=== PATIENT | female | born 1955 | race Caucasian/White ===

== ENCOUNTER 2018-09-06 00:58 | Outpatient (CLI) | payer BC, SELFPAY ==
--- NOTE | 2018-09-06 10:30 | MERGE_ITS ---
*[facility]* *[facility]* [address] [place] [address] Date of study: 09/06/2018 Transthoracic Echocardiography M-mode, complete 2D, complete spectral Doppler, and color Doppler *STUDY CONCLUSIONS* Summary: 1. Left ventricle: The cavity size was severely dilated. Wall thickness was normal. Systolic function was mildly to moderately reduced. The estimated ejection fraction was 40-45%. Diffuse hypokinesis. 2. Aortic valve: There was trivial regurgitation. 3. Mitral valve: Mildly thickened leaflets. There was mild to moderate regurgitation. 4. Right ventricle: The cavity size was normal. Wall thickness was normal. Systolic function was normal. 5. Inferior vena cava: The vessel was patent and normal in size. The respirophasic diameter changes were in the normal range (greater than or equal to 50%). *PATIENT PRESENTATION* Height: 172.7cm ((68in) ) S/D Pressure: 155 / 77 Weight: 86.2kg ((189.6lb) ) BSA: 2.05m^2 Test start time: 10:40 AM. Test stop time: 11:40 AM. CONSULTING Naveed Mckinney Preeth REFERRING Natasha Lopez PERFORMING [facility] SHOP WELDER RT Sy (Cristina)(KRISTINA), CIARA *PROCEDURE DATA* Procedure information: The patient was identified by two identifiers. This study was interpreted by [facility]. Pertinent images and digital data are archived for permanent storage and are available for subsequent review. Comparison was made to the study of 04/20/2017. Study status: Routine. Transthoracic echocardiography. M-mode, complete 2D, complete spectral Doppler, and color Doppler. A Transthoracic Echocardiogram was performed. Scanning was performed from the parasternal, apical, subcostal, and suprasternal notch acoustic windows. Images were obtained using an [id number] cardiac ultrasound machine. Image quality was adequate. Study completion: The patient tolerated the procedure well. There were no complications. 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 *CARDIAC ANATOMY* Left ventricle: The cavity size was severely dilated. Wall thickness was normal. Systolic function was mildly to moderately reduced. The estimated ejection fraction was 40-45%. Diffuse hypokinesis. Aortic valve: Trileaflet; mildly thickened leaflets. Mobility was not restricted. Doppler: Transvalvular velocity was within the normal range. There was no stenosis. There was trivial regurgitation. VTI ratio of LVOT to aortic valve: 0.79. Valve area (VTI): 2.6cm^2. Indexed valve area (VTI): 1.3cm^2/m^2. Peak velocity ratio of LVOT to aortic valve: 0.8. Valve area (Vmax): 2.6cm^2. Indexed valve area (Vmax): 1.3cm^2/m^2. Mean velocity ratio of LVOT to aortic valve: 0.72. Valve area (Vmean): 2.3cm^2. Indexed valve area (Vmean): 1.1cm^2/m^2. Mean gradient (S): 4.8mm Hg. Peak gradient (S): 9.2mm Hg. Aorta: Aortic root: The aortic root was normal in size. Ascending aorta: The ascending aorta was normal in size. Mitral valve: Mildly thickened leaflets. Mobility was not restricted. Doppler: Transvalvular velocity was within the normal range. There was no evidence for stenosis. There was mild to moderate regurgitation. Valve area by pressure half-time: 3cm^2. Indexed valve area by pressure half-time: 1.5cm^2/m^2. Left atrium: The atrium was normal in size. Right ventricle: The cavity size was normal. Wall thickness was normal. Systolic function was normal. Pulmonic valve: Structurally normal valve. Doppler: Transvalvular velocity was within the normal range. There was no evidence for stenosis. There was trivial regurgitation. Peak gradient (S): 3.5mm Hg. Tricuspid valve: Structurally normal valve. Doppler: Transvalvular velocity was within the normal range. There was no evidence for stenosis. There was no significant regurgitation. Pulmonary artery: The main pulmonary artery was normal-sized. Systolic pressure could not be accurately estimated. Right atrium: The atrium was normal in size. Pericardium: There was no pericardial effusion. Systemic veins: Inferior vena cava: Well visualized. The vessel was patent and normal in size. The respirophasic diameter changes were in the normal range (greater than or equal to 50%). Baseline ECG: Normal sinus rhythm. Measurements Left ventricle Value 04/20/2017 Reference LV ID, ED, PLAX (H) 6.1 cm 3.5 - 6.0 LV ID, ES, PLAX (H) 5.1 cm 2.1 - 4.0 LV PW thickness, ED, PLAX 0.9 cm LV end-diastolic volume, 113 ml 1-p A2C LV ejection fraction, 1-p 40 % A2C LV end-diastolic volume, 137 ml 1-p A4C LV ejection fraction, 1-p 40 % A4C LV e', lateral 0.042 m/sec LV E/e', lateral 12 LV e', medial 0.042 m/sec LV E/e', medial 13 LV e', average 0.042 m/sec LV E/e', average 12 Ventricular septum Value 04/20/2017 Reference IVS thickness, ED, PLAX 0.8 cm LVOT Value 04/20/2017 Reference LVOT ID, A-P 2.0 cm LVOT area 3.3 cm^2 LVOT peak velocity, S 1.21 m/sec LVOT mean velocity, S 0.74 m/sec LVOT VTI, S 23.8 cm LVOT peak gradient, S 5.9 mm Hg LVOT mean gradient, S 2.8 mm Hg Stroke volume (SV), LVOT 77 ml DP Stroke index (SV/bsa), 38 ml/m^2 LVOT DP Aortic valve Value 04/20/2017 Reference Aortic valve peak 1.5 m/sec velocity, S Aortic valve mean 1.03 m/sec velocity, S Aortic valve VTI, S 30.0 cm Aortic mean gradient, S 4.8 mm Hg Aortic peak gradient, S 9.2 mm Hg VTI ratio, LVOT/AV 0.79 Aortic valve area, VTI 2.6 cm^2 0.2 Velocity ratio, peak, 0.8 LVOT/AV Aortic valve area, peak 2.6 cm^2 velocity Velocity ratio, mean, 0.72 LVOT/AV Aortic valve area, mean 2.3 cm^2 velocity Aortic valve area/bsa, 1.1 cm^2/m^2 mean velocity Aorta Value 04/20/2017 Reference Aortic root ID, ED 3.4 cm Ascending aorta ID, A-P, S 3.1 cm Left atrium Value 04/20/2017 Reference LA ID, A-P, ES 4.6 cm LA ID/bsa, A-P 2.2 cm/m^2 <=2.2 LA area, ES, A4C 22.8 cm^2 30 8.8 - 23.4 LA area, ES, A2C 22 cm^2 LA volume/bsa, ES, 1-p A4C 41 ml/m^2 LA volume, ES, 2-p 73 ml LA volume/bsa, ES, 2-p 36 ml/m^2 LA/aortic root ratio 1.37 Mitral valve Value 04/20/2017 Reference Mitral E-wave peak 0.52 m/sec velocity Mitral A-wave peak 1.05 m/sec velocity Mitral deceleration time (H) 252 ms 150 - 230 Mitral pressure half-time 73 ms Mitral E/A ratio, peak 0.5 Mitral valve area, PHT, DP 3 cm^2 Tricuspid valve Value 04/20/2017 Reference Tricuspid regurg peak 2.2 m/sec velocity Tricuspid peak RV-RA 19.6 mm Hg gradient Right atrium Value 04/20/2017 Reference RA area, ES, A4C 16 cm^2 18 8.3 - 19.5 Pulmonic valve Value 04/20/2017 Reference Pulmonic peak gradient, S 3.5 mm Hg Legend: (L) and (H) donell values outside specified reference range. I have personally reviewed the images and have reviewed and edited the reported findings. Electronically signed by Steve Bustillo 09/06/2018 15:19
== END 2018-09-06 01:18 ==
PROVIDERS: PCP General Practice; Visit Provider Internal Medicine Cardiovascular Disease
DX: I34.0 Nonrheumatic mitral (valve) insufficiency (principal); I35.1 Nonrheumatic aortic (valve) insufficiency
CPT/HCPCS: 93306

== ENCOUNTER 2018-12-20 10:16 | Outpatient (CLI) | payer BC, SELFPAY ==
--- NOTE | 2018-12-20 10:16 | DI.RAD_ITS ---
SYMPTOM/DIAGNOSIS: COUGH,R05 PA AND LATERAL CHEST: The heart is not enlarged. The lungs show mild interstitial changes. There is an apparent new nodular radiodensity projected in the left infrahilar region measuring about 20 mm. in diameter on the PA view. This was not present on examination of 02/09/17. The possibility of a new intrapulmonary mass is raised. No pleural effusion is seen. No other significant findings. CONCLUSION: Question new left intrapulmonary mass. Chest CT requested for further evaluation.
== END 2018-12-20 10:36 ==
PROVIDERS: PCP General Practice; Visit Provider General Practice
DX: R05 Cough (principal); R91.1 Solitary pulmonary nodule
CPT/HCPCS: 71046

== ENCOUNTER 2018-12-20 10:22 | Outpatient (CLI) | payer BC, SELFPAY ==
[2018-12-20 12:05] LABS: Anion Gap 8.9 mmol/L (3-11); BUN 75 mg/dL (7-18); CO2 28.1 mmol/L (21.0-32.0); Chloride 102 mmol/L (98-107); Estimated GFR 8.65 (mL/min/1.73m2); Potassium 4.8 mmol/L (3.5-5.1); Sodium 139 mmol/L (136-145)
[2018-12-20 14:27] LABS: CREATININE 5.03 mg/dL (0.55-1.02)
== END 2018-12-20 10:42 ==
PROVIDERS: PCP General Practice; Visit Provider General Practice
DX: I42.9 Cardiomyopathy, unspecified (principal); I50.9 Heart failure, unspecified
CPT/HCPCS: 36415; 80051; 84520; 82565; 83880

== ENCOUNTER 2018-12-21 11:37 | Outpatient (CLI) | payer BC, SELFPAY ==
[2018-12-21 12:00] LABS: Bilirubin Negative (Negative); Blood Moderate (Negative); Clarity Cloudy; Glucose Negative (Negative); Ketones Negative (Negative); Leukocyte Esterase Moderate (Negative); Nitrite Negative (Negative); Specific Gravity 1.015 (1.005-1.025); Urobilinogen 0.2 EU/dL (Up TO 0.2)
[2018-12-21 12:09] LABS: Estimated GFR 8.82 (mL/min/1.73m2); Potassium 4.2 mmol/L (3.5-5.1)
[2018-12-21 12:13] LABS: Bacteria Moderate HPF (Negative); Crystals Moderate Amorphous HPF (Negative); Epithelial Cells Moderate HPF (Negative); Other Cells Few Transitional (Negative)
[2018-12-21 12:14] LABS: C & S Indicated? Yes; Casts 3-5 Fine Granular LPF (Negative); Mucus Moderate (Negative)
[2018-12-21 13:34] LABS: CREATININE 4.95 mg/dL (0.55-1.02)
== END 2018-12-21 11:57 ==
PROVIDERS: PCP General Practice; Visit Provider General Practice
DX: E83.52 Hypercalcemia (principal); N39.0 Urinary tract infection, site not specified
CPT/HCPCS: 87077; 81003; 81015; 82565; 84132; 87086

== ENCOUNTER 2018-12-23 02:14 | Outpatient (CLI) | payer BC, SELFPAY ==
[2018-12-23 08:07] LABS: Estimated GFR 7.77 (mL/min/1.73m2); Potassium 4.6 mmol/L (3.5-5.1)
[2018-12-23 10:02] LABS: CREATININE 5.52 mg/dL (0.55-1.02)
== END 2018-12-23 02:34 ==
PROVIDERS: PCP General Practice; Visit Provider General Practice
DX: N17.9 Acute kidney failure, unspecified (principal)
CPT/HCPCS: 36415; 82565; 84132

== ENCOUNTER 2018-12-24 07:11 | Outpatient (CLI) | payer BC, SELFPAY ==
[2018-12-24 07:40] LABS: HCT 33.3 % (36.0-46.0); HGB 10.6 g/dL (12.0-15.5); Mean Corp. HGB Concentration 31.8 g/dL (32.0-36.0); Mean Corpuscular Hemoglobin 28.9 pg (27.0-33.0); Mean Corpuscular Volume 90.7 fL (80-95); Mean Platelet Volume 10.7 fL (8.0-11.0); Platelet Count 205 x1000/uL (130-400); RBC 3.67 m/cumm (4.00-5.20); RBC Distribution Width 13.2 % (11.7-14.6); White Blood Cell Count 7.27 k/cumm (4.4-10.8)
[2018-12-24 08:40] LABS: ALT 22 U/L (12-78); AST 18 U/L (15-37); Albumin 3.4 g/dL (3.4-5.0); Alkaline Phosphatase 88 U/L (46-116); Anion Gap 12.2 mmol/L (3-11); BUN 66 mg/dL (7-18); Bilirubin, Total 0.6 mg/dL (0.2-1.0); CO2 25.8 mmol/L (21.0-32.0); Chloride 102 mmol/L (98-107); Estimated GFR 7.54 (mL/min/1.73m2); Glucose 145 mg/dL (70-100); Potassium 4.5 mmol/L (3.5-5.1); Sodium 140 mmol/L (136-145); Total Protein 7.4 g/dL (6.4-8.2)
[2018-12-24 08:51] LABS: CREATININE 5.67 mg/dL (0.55-1.02)
== END 2018-12-24 07:31 ==
PROVIDERS: PCP General Practice; Visit Provider General Practice
DX: N17.9 Acute kidney failure, unspecified (principal)
CPT/HCPCS: 36415; 80053; 85027

== ENCOUNTER 2018-12-24 10:09 | Inpatient (IN) | payer BC, SELFPAY ==
[2018-12-24] VITALS (9 sets, daily range): BP systolic 143–152; BP diastolic 64–75; PULSE 70–76; RESP 14–19; TEMP 36.7–37.2; O2SAT 96–98
--- NOTE | 2018-12-24 10:20 | W.ED.GENAD ---
Discharge Plan Disposition Patient Disposition: [facility] INPATIENT Condition: Improving Discharge Details Chief Complaint: GenMedical Clinical Impression: Hypercalcemia Primary Care Provider: Naveed Mckinney ED Provider: Korey Mcneil Home Meds and New Rx's Prescriptions: No Action spironolactone 25 mg tablet 25 mg PO DAILY Qty: 90 RF: 3 Multi Complete with Iron 1 EACH tablet 1 tab-cap PO DAILY RF: 0 ascorbic acid (vitamin C) [Vitamin C] 500 MG tablet 500 mg PO DAILY RF: 0 vitamin E 400 UNIT capsule 400 unit PO DAILY Qty: 1 RF: 0 garlic 1 EACH capsule 1 ea PO DAILY RF: 0 omega-3 fatty acids-fish oil [Fish Oil] 1 EACH capsule 1 ea PO DAILY RF: 0 furosemide [Lasix] 20 MG tablet 20 mg PO DAILY RF: 0 lisinopril 40 MG tablet 40 mg PO DAILY Qty: 60 RF: 3 Metoprolol Succinate 50 MG TAB.ER.24H 100 mg PO DAILY Qty: 90 RF: 4 cyanocobalamin (vitamin B-12) [Vitamin B-12] 100 mcg Tablet 100 mcg PO DAILY RF: 0 thiamine HCl (vitamin B1) [Vitamin B-1] 100 mg Tablet 100 mg PO DAILY RF: 0 Medical Decision Making 63-year-old female referred by Dr. Mckinney. She has had approximately 3 months of generalized fatigue with nonproductive cough, 20 pound weight loss. She was noted to have acute renal insufficiency on recent laboratories and her DARIELA inhibitor and spironolactone were discontinued 4 days ago. A chest x-ray obtained on December 20 reveal a pulmonary nodule. Concerning that she may have a developing carcinoma. Patient arrives with no acute distress. Pt placed in a monitored bed. IV access established, fluids initiated, referred for x-ray, laboratories, CT scan of chest abdomen and pelvis. Laboratory: White count 6.8, hematocrit 33.8, platelets 218. Sodium 139, potassium 4.4, chloride 102, bicarb 25, BUN 66, creatinine 5.6, glucose 113, calcium 13.8. Ionized calcium pending. Magnesium 2.3. Total protein 8.1 Urine output established and fluids ongoing. Given the calcium level of 13.8, consistent with moderate hypercalcemia, will add bisphosphonate. CT: Notable for a left adnexal lesion as well as bony lytic lesions. There is a 1.8 cm left lingular mass. Case discussed with on-call [facility]Onc at [facility] Dr. Lyn. She recommends admission with hydration and bisphosphonate for calcium control. Given the patient's left adnexal lesion will pursue a pelvic ultrasound; bony lytic lesion certainly risk question of myeloma and therefore SPEP, UPEP, serum free light chains and beta-[address] Lyn available for consultation. ECG Data Attestation: I personally reviewed and interpreted this ECG (s) as follows: Interpretation: Normal sinus rhythm with a rate of 67, QRS is narrow, unremarkable intervals, no ST segment elevation HPI General Mode of arrival: ambulatory. Date/Time Provider Initiated Documentation: 12/24/18 10:20. Limitations to Documentation: no limitations. Information obtained by: patient and old records reviewed. History of Present Illness 63 year old F presents to the emergency department with the chief complaint of Referred by Dr Mckinney for Cr 5, Hypercalcemia, Pulmonary nodule. +cough, described as mild and moderate, Quality is described as dull, and is localized to the chest. Patient reports no radiation. Patient started experiencing this month(s) and it has been intermittent. No relieving factors improve symptom(s), No exacerbating factors reported . Patient notes other (Weight loss, cough). Patient did receive the following treatments prior to arrival, none Related Data Home Medications Medication Instructions Recorded Confirmed ascorbic acid (vitamin C) [Vitamin 500 mg PO DAILY 05/15/13 12/24/18 C] vpojotmnbmau-tyni-hiyro acid 1 tab-cap PO DAILY tab-cap 05/15/13 12/24/18 [Multi Complete-Iron Tablet] vitamin E 400 unit PO DAILY #1 05/15/13 12/24/18 garlic 1 ea PO DAILY 05/21/14 12/24/18 omega-3 fatty acids-fish oil [Fish 1 ea PO DAILY 06/10/15 12/24/18 Oil 1,000 Mg Capsule] furosemide [Lasix] 20 mg PO DAILY tab-cap 07/12/17 12/24/18 lisinopril 40 mg PO DAILY #60 tab-cap 09/14/17 08/15/18 spironolactone 25 mg tablet 25 mg PO DAILY #90 tab-cap 08/15/18 08/15/18 cyanocobalamin (vitamin B-12) 100 mcg PO DAILY 12/24/18 12/24/18 [Vitamin B-12] thiamine HCl (vitamin B1) [Vitamin 100 mg PO DAILY 12/24/18 12/24/18 B-1] Previous Rx's Medication Instructions Recorded lisinopril 40 mg PO DAILY #60 tab-cap 09/14/17 spironolactone 25 mg tablet 25 mg PO DAILY #90 tab-cap 08/15/18 Allergies Allergy/AdvReac Type Severity Reaction Status Date / Time feathers Allergy Intermediate Watery Unverified 12/24/18 10:27 eyes, sneezing Dust Allergy Intermediate Watery Uncoded 12/24/18 10:27 eyes, sneezing, Environmental Allergy Intermediate Running Uncoded 12/24/18 10:27 nose, watery eyes, sneezing Review of Systems Review of Systems Patient has had 3 months of cough, general malaise, weakness. She describes a 20 pound weight loss. She continues to urinate normally. She stopped spironolactone and lisinopril 4 days ago. 8 systems reviewed and otherwise negative [facility] Medical History Essential hypertension Surgical History Appendectomy Diagnostic Laproscopy (~1980) Oophrectomy, Left Family History Mother Dementia Father Prostate cancer Social History Smoking/Tobacco Use Status: Never Alcohol Intake: never Drug use: Never Substance use type: does not use Do you feel safe at home: Yes Do you feel safe in your relationship?: Yes Exam Narrative Exam Narrative: GEN: awake, alert, oriented 3. Pleasant, well groomed, interactive. HEAD: Normocephalic, atraumatic ENT: Mucous membranes moist, oropharynx unremarkable, External ear exam unremarkable EYES: PERRL, EOMI NECK: Full ROM, no GUERLINE, no menigismus CHEST/RESP: Nontender, clear to auscultation bilateral, no wheeze/rhonchi/rales CARDIOVASCULAR: RRR, no murmur, rub padmini. 2+ Rad pulse bilateral ABDOMEN: Soft, nontender, no mass. +Bowel sounds EXT: Full ROM, no edema, no rash Neuro: Grossly normal neurologic exam, conversant, interactive. Psych: Speech fluent, thoughts congruent, affect normal
--- NOTE | 2018-12-24 10:25 | ED.GENADUL_ITS ---
Discharge Plan Disposition Patient Disposition: [facility] INPATIENT Condition: Improving Discharge Details Chief Complaint: GenMedical Clinical Impression: Hypercalcemia Primary Care Provider: Naveed Mckinney ED Provider: Korey Mcneil Home Meds and New Rx's Prescriptions: No Action spironolactone 25 mg tablet 25 mg PO DAILY Qty: 90 RF: 3 Multi Complete with Iron 1 EACH tablet 1 tab-cap PO DAILY RF: 0 ascorbic acid (vitamin C) [Vitamin C] 500 MG tablet 500 mg PO DAILY RF: 0 vitamin E 400 UNIT capsule 400 unit PO DAILY Qty: 1 RF: 0 garlic 1 EACH capsule 1 ea PO DAILY RF: 0 omega-3 fatty acids-fish oil [Fish Oil] 1 EACH capsule 1 ea PO DAILY RF: 0 furosemide [Lasix] 20 MG tablet 20 mg PO DAILY RF: 0 lisinopril 40 MG tablet 40 mg PO DAILY Qty: 60 RF: 3 Metoprolol Succinate 50 MG TAB.ER.24H 100 mg PO DAILY Qty: 90 RF: 4 cyanocobalamin (vitamin B-12) [Vitamin B-12] 100 mcg Tablet 100 mcg PO DAILY RF: 0 thiamine HCl (vitamin B1) [Vitamin B-1] 100 mg Tablet 100 mg PO DAILY RF: 0 Medical Decision Making 63-year-old female referred by Dr. Mckinney. She has had approximately 3 months of generalized fatigue with nonproductive cough, 20 pound weight loss. She was noted to have acute renal insufficiency on recent laboratories and her DARIELA inhibitor and spironolactone were discontinued 4 days ago. A chest x-ray obtained on December 20 reveal a pulmonary nodule. Concerning that she may have a developing carcinoma. Patient arrives with no acute distress. Pt placed in a monitored bed. IV access established, fluids initiated, referred for x-ray, laboratories, CT scan of chest abdomen and pelvis. Laboratory: White count 6.8, hematocrit 33.8, platelets 218. Sodium 139, potassium 4.4, chloride 102, bicarb 25, BUN 66, creatinine 5.6, glucose 113, nathanael cium 13.8. Ionized calcium pending. Magnesium 2.3. Total protein 8.1 Urine output established and fluids ongoing. Given the calcium level of 13.8, consistent with moderate hypercalcemia, will add bisphosphonate. CT: Notable for a left adnexal lesion as well as bony lytic lesions. There is a 1.8 cm left lingular mass. Case discussed with on-call Heme-Onc at [facility] Dr. Lyn. She recommends admission with hydration and bisphosphonate for calcium control. Given the patient's left adnexal lesion will pursue a pelvic ultrasound; bony lytic lesion certainly risk question of myeloma and therefore SPEP, UPEP, serum free light chains and beta-[address] Lyn available for consultation. ECG Data Attestation: I personally reviewed and interpreted this ECG (s) as follows: Interpretation: Normal sinus rhythm with a rate of 67, QRS is narrow, unremarkable intervals, no ST segment elevation HPI General Mode of arrival: ambulatory . Date/Time Provider Initiated Documentation: 12/24/18 10:20 . Limitations to Documentation: no limitations . Information obtained by: patient and old records reviewed . History of Present Illness 63 year old F presents to the emergency department with the chief complaint of Referred by Dr Mckinney for Cr 5, Hypercalcemia, Pulmonary nodule. +cough, described as mild and moderate, Quality is described as dull, and is localized to the chest. Patient reports no radiation. Patient started experiencing this month(s) and it has been intermittent. No relieving factors improve symptom(s), No exacerbating factors reported . Patient notes other (Weight loss, cough). Patient did receive the following treatments prior to arrival, none Related Data Home Medications Medication Instructions Recorded Confirmed ascorbic acid (vitamin C) [Vitamin 500 mg PO DAILY 05/15/13 12/24/18 C] saijonwnqqub-lvnq-vgcli acid 1 tab-cap PO DAILY tab-cap 05/15/13 12/24/18 [Multi Complete-Iron Tablet] vitamin E 400 unit PO DAILY #1 05/15/13 12/24/18 garlic 1 ea PO DAILY 05/21/14 12/24/18 omega-3 fatty acids-fish oil [Fish 1 ea PO DAILY 06/10/15 12/24/18 Oil 1,000 Mg Capsule] furosemide [Lasix] 20 mg PO DAILY tab-cap 07/12/17 12/24/18 lisinopril 40 mg PO DAILY #60 tab-cap 09/14/17 08/15/18 spironolactone 25 mg tablet 25 mg PO DAILY #90 tab-cap 08/15/18 08/15/18 cyanocobalamin (vitamin B-12) 100 mcg PO DAILY 12/24/18 12/24/18 [Vitamin B-12] thiamine HCl (vitamin B1) [Vitamin 100 mg PO DAILY 12/24/18 12/24/18 B-1] Previous Rx's Medication Instructions Recorded lisinopril 40 mg PO DAILY #60 tab-cap 09/14/17 spironolactone 25 mg tablet 25 mg PO DAILY #90 tab-cap 08/15/18 Allergies Allergy/AdvReac Type Severity Reaction Status Date / Time feathers Allergy Intermediate Watery Unverified 12/24/18 10:27 eyes, sneezing Dust Allergy Intermediate Watery Uncoded 12/24/18 10:27 eyes, sneezing, Environmental Allergy Intermediate Running Uncoded 12/24/18 10:27 nose, watery eyes, sneezing Review of Systems Review of Systems Patient has had 3 months of cough, general malaise, weakness. She describes a 20 pound weight loss. She continues to urinate normally. She stopped spironolactone and lisinopril 4 days ago. 8 systems reviewed and otherwise negative [facility] Medical History Essential hypertension Surgical History Appendectomy Diagnostic Laproscopy (~1980) Oophrectomy, Left Family History Mother Dementia Father Prostate cancer Social History Smoking/Tobacco Use Status: Never Alcohol Intake: never Drug use: Never Substance use type: does not use Do you feel safe at home: Yes Do you feel safe in your relationship?: Yes Exam Narrative Exam Narrative: GEN: awake, alert, oriented 3. Pleasant, well groomed, interactive. HEAD: Normocephalic, atraumatic ENT: Mucous membranes moist, oropharynx unremarkable, External ear exam unremarkable EYES: PERRL, EOMI NECK: Full ROM, no GUERLINE, no menigismus CHEST/RESP: Nontender, clear to auscultation bilateral, no wheeze/rhonchi/rales CARDIOVASCULAR: RRR, no murmur, rub padmini. 2+ Rad pulse bilateral ABDOMEN: Soft, nontender, no mass. +Bowel sounds EXT: Full ROM, no edema, no rash Neuro: Grossly normal neurologic exam, conversant, interactive. Psych: Speech fluent, thoughts congruent, affect normal
[2018-12-24] MEDS: Normal Saline 1,000 ML 1000 ML IV (10:45)
[2018-12-24 10:59] LABS: Abs Immature Grans 0.01 k/cumm (0.0-0.09); Absolute Basophil Count 0.03 k/cumm (0.0-0.2); Absolute Eosinophil Count 0.08 k/cumm (0.0-0.7); Absolute Lymphocyte Count 0.75 k/cumm (1.2-3.4); Absolute Monocyte Count 0.71 k/cumm (0.11-0.7); Absolute Neutrophil Count 5.29 k/cumm (1.2-6.7); Basophils % 0.4; Eosinophils % 1.2; HCT 33.8 % (36.0-46.0); HGB 10.9 g/dL (12.0-15.5); Immature Grans % 0.1; Lymphocytes % 10.9; Mean Corp. HGB Concentration 32.2 g/dL (32.0-36.0); Mean Corpuscular Volume 89.9 fL (80-95); Mean Platelet Volume 10.8 fL (8.0-11.0); Monocytes % 10.3; Neutrophils % 77.1; Platelet Count 218 x1000/uL (130-400); RBC 3.76 m/cumm (4.00-5.20); RBC Distribution Width 13.2 % (11.7-14.6); White Blood Cell Count 6.87 k/cumm (4.4-10.8)
[2018-12-24 11:16] LABS: ALT 22 U/L (12-78); AST 19 U/L (15-37); Albumin 3.4 g/dL (3.4-5.0); Alkaline Phosphatase 91 U/L (46-116); Anion Gap 11.3 mmol/L (3-11); BUN 66 mg/dL (7-18); Bilirubin, Total 0.7 mg/dL (0.2-1.0); CO2 25.7 mmol/L (21.0-32.0); Chloride 102 mmol/L (98-107); Estimated GFR 7.63 (mL/min/1.73m2); Glucose 113 mg/dL (70-100); Magnesium 2.3 mg/dL (1.8-2.4); Potassium 4.4 mmol/L (3.5-5.1); Sodium 139 mmol/L (136-145); Total Protein 8.1 g/dL (6.4-8.2)
[2018-12-24 11:19] LABS: CREATININE 5.61 mg/dL (0.55-1.02); Calcium 13.8 mg/dL (8.5-10.1)
--- NOTE | 2018-12-24 11:35 | DI.CT_ITS ---
SYMPTOMS/DIAGNOSIS: ELEVATED CREATININE, WEAKNESS, CA 15, PULMONARY NODULE 12/20 CT SCAN OF THE CHEST, ABDOMEN AND PELVIS: A noncontrast examination was performed. No priors. CT SCAN OF THE ABDOMEN AND PELVIS: Lack of IV contrast does limit elevation of the abdominal and pelvic organs. The unenhanced liver appears grossly unremarkable. There are stones seen within the gallbladder. No biliary ductal dilatation is present. The unenhanced pancreas, spleen and adrenal glands are grossly unremarkable. The kidneys show no evidence of nephrolithiasis or obstructive uropathy. The urinary bladder is intact. The reproductive organs are visualized. There are several hypodense lesions seen in the left adnexa. The largest measures 4.8 cm. These likely are ovarian in origin. There is diverticulosis seen in the sigmoid colon but no evidence of acute diverticulitis. There is a round well circumscribed fat density lesion in the region of the cecum which may represent a lipoma. No solid mass is seen in the bowel. No findings to suggest an acute inflammatory or infectious process. No findings of an acute appendicitis or bowel obstruction. The abdominal aorta is intact. No significant abdominal or pelvic adenopathy, ascites or pneumoperitoneum is present. A trace amount of fluid is seen in the cul-de-sac which is likely physiologic. There are numerous lucencies seen in the bones. Differential considerations include myeloma vs metastatic disease. IMPRESSION: 1. Cholelithiasis. No biliary ductal dilatation. 2. Colonic diverticulosis but no evidence of acute diverticulitis. 3. Multi-cystic left adnexal lesion. These are likely ovarian in origin. Pelvic ultrasound may be obtained for further evaluation. 4. Lytic lesions seen within the bones. Differential considerations include myeloma or metastatic disease. Follow up as clinically appropriate. CT SCAN OF THE CHEST: The thoracic aorta is of normal caliber. The heart size is enlarged mildly. No significant pericardial effusion is seen. Coronary artery calcifications are present. No significant thoracic adenopathy is appreciated. There is a 1.8 cm noncalcified pulmonary nodule in the left lingula. This can be visualized on the chest x-ray from 12/20/18. There does appear to be some fat density within the nodule. There is an internal of minus 29.9 Hounsfield units. Scattered reticular nodular infiltrates are seen in the lung apices bilaterally. No areas of consolidation are seen in the lungs. Ground glass opacities are seen in the lung bases. The tracheobronchial tree is unremarkable. The osseous structures again show multiple lucencies. This may represent metastatic disease vs myeloma. IMPRESSION: 1. Diffuse osseous lytic lesions. Differential considerations include myeloma or metastatic disease. 2. 1.8 cm well circumscribed nodule in the left lingula. There is some lingula fat attenuation. Hamartoma should be considered. Other benign or malignant lesion should also be considered for further evaluation. 3. Reticular nodular disease in the lung apices. Inflammatory or infectious process should be considered. These findings were discussed with the emergency department on the date of the examination.
[2018-12-24] MEDS: Normal Saline 1,000 ML 150 ML IV ×2 (12:01→14:48)
[2018-12-24 12:33] LABS: Bilirubin Negative (Negative); Blood Trace-lysed (Negative); Clarity Clear; Glucose Negative (Negative); Ketones Negative (Negative); Leukocyte Esterase Small (Negative); Nitrite Negative (Negative); Specific Gravity 1.015 (1.005-1.025); Urobilinogen 0.2 EU/dL (Up TO 0.2)
[2018-12-24 12:42] LABS: Bacteria Moderate HPF (Negative); Casts 0-2 Coarse Granular LPF (Negative); Crystals Moderate Amorphous HPF (Negative); Epithelial Cells Many HPF (Negative); Mucus Negative (Negative); Other Cells Few Renal (Negative)
[2018-12-24 12:43] LABS: C & S Indicated? No/Sq. Contamination
--- NOTE | 2018-12-24 12:43 | DI.US_ITS ---
SYMPTOM/DIAGNOSIS: LT ADNEXAL MASS, WT LOSS,ELEVATED CA PELVIC ULTRASOUND: Transabdominal and transvaginal examination was performed. Comparison is made with CT scan performed the same day. The uterus measures 7.1 cm. long by 3.3 cm. AP by 4.0 cm. transverse. The endometrial stripe is within normal limits at .6 cm. There is a 1 by 1 by 0.9 cm., hypoechoic area in the anterior body of the uterus, likely reflecting a fibroid. The right ovary was not visualized. No cystic or solid lesion is seen in the right adnexa. In the left adnexa, there is a 4.5 by 2.7 by 5.1 cm., hypoechoic mass. No internal blood flow is seen. There is some posterior acoustic enhancement suggesting a cystic quality. There may be an internal septation noted. There is a small amount of free fluid in the pelvis. IMPRESSION: 1. Complex, 5.1 cm. left adnexal lesion corresponding to the finding on the CT scan. The findings may represent a complex cyst. Detail is limited due to patient positioning and body habitus. Gynecologic consult is recommended. MRI or direct visualization should be considered for further evaluation. 2. Findings suggestive of an intramural uterine fibroid.
[2018-12-24 13:08] LABS: LDH 180 U/L (81-234)
[2018-12-24] MEDS: Heparin 5,000 UNITS/ML VIAL 5000 UNITS SC ×2 (14:47→21:50)
--- NOTE | 2018-12-24 17:16 | W.PM.HP.N ---
Date of service: 12/24/18 Time of Service: 17:16 Assessment and Plan (1) Acute renal failure: Current visit: Yes Status: Acute BUN 66, Creatinine 5.61 today with normal potassium. Does not appear to be obstructive process. Bladder scan for PVR. Hydrate with IV fluids over night, avoid nephrotoxic medications. reassess renal function in the morning. Carefully monitor fluid status as she has a history of cardiomyopathy. If renal function not improving with IV fluids, consider transfer. (2) Hypercalcemia: Current visit: Yes Status: Acute Calcium level 13.8 today. Concern for myeloma versus metastatic disease. Case discussed with hematology/oncology by emergency department provider, Recommend hydration biphosphonate for calcium control. Received Zometa in the emergency department. Continue to monitor calcium. (3) Lytic lesion of bone on x-ray: Current visit: Yes Status: Acute Noted on CT. With concern for myeloma versus metastatic disease. Case discussed with hematology/oncology as above. Will hydrate with IV fluids overnight. Send out labs pending as recommended by hematology/oncology. Dr. Lyn requests follow-up call with update on patient's condition. (4) Adnexal mass: Current visit: Yes Status: Acute Possibly cystic versus other mass. Pelvic ultrasound pending. (5) Lung nodule: Current visit: Yes Status: Acute 1.8 cm left lingular nodule noted on CT. Case discussed with Hematology/Oncology as above. (6) Cardiomyopathy: Current visit: Yes Status: Acute Presumed to be stress related in the setting of multiple losses over the past 15 years. Most recent echocardiogram in 2017 showed LVEF of 40-45%. Monitor fluid status closely with daily weights and strict intake and output. (7) DVT prophylaxis: Current visit: Yes Status: Acute Subcutaneous heparin. (8) Discharge planning issues: Current visit: Yes Status: Acute She is a FULL code. High concern for multiple myeloma vs metastatic disease. Her case was discussed with hematology/oncology, she will need to follow up with heme/onc, as outpatient if she is stable, versus possible transfer if her renal function does not improve. This case was discussed with Dr. Beatty who is in agreement. History of Present Illness Chief Complaint: Cough, weightloss, fatigue Narrative: Jen Guevara is a very pleasant 63-year-old female who was seen in her primary care provider office today and found to have persistently elevated creatinine, as high as 5.61 in the emergency department today. She previously had a baseline creatinine around 1, most recently checked less than 1 year ago. Since December 20, 2018, she has been followed closely by her primary care provider and her creatinine has remained around 5. She originally presented to his office for a harsh barking cough that she has had for approximately 4 months. She reported a weight loss of 20 pounds in the last 4 months, which she attributes to poor appetite as well as increasingly feeling more fatigued. In the emergency department, she had a CT of her chest, abdomen and pelvis which showed cholelithiasis with no ductal dilatation, colonic diverticulosis with no diverticulitis, multicystic left adnexal lesion, likely ovarian in origin, diffuse osseous lytic lesions, with concern for myeloma or metastatic disease, also a 1.8 cm well-circumscribed nodule in the left lingula. She was also found to have hypercalcemia. The emergency department attending physician, Dr. Mcneil, contacted hematology/oncology at [facility] and spoke with Dr. Lyn who made recommendations for labs to assess for multiple myeloma. Given the acute renal failure as well as the findings concerning for possible myeloma, [facility] for further evaluation and management. 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 Her most recent echocardiogram in August 2018 showed LVEF of 40-45% (which was improved from 1 month prior LVEF of 25-30%). She had previously been on Aldactone and DARIELA inhibitor which were stopped by her primary care provider prior to her presentation. She currently reports a continued harsh, barking cough that is nonproductive, mild shortness of breath with exertion, no wheezing. She has noticed that she becomes fatigued very easily over the last few days. She has had a 20 pound weight loss in the last 4 months. She denies headaches, fevers, night sweats. No chest pain/pressure, her appetite has been poor, she has not been eating as much as usual, she did vomit once this morning but otherwise has had no nausea, vomiting or diarrhea. She has been somewhat constipated. She denies any urinary symptoms, including dysuria, hematuria, she reports that about a month ago she was getting up frequently at night to urinate however, that seems to have resolved. No lower extremity edema. No pain. Review of Systems Review of Systems All systems reviewed & are unremarkable except as noted in HPI and below PFSH Medical History Dilated cardiomyopathy (Acute) Essential hypertension Surgical History Appendectomy Diagnostic Laproscopy (~1980) Oophrectomy, Left Family History Mother Dementia Father Prostate cancer Social History Smoking/Tobacco Use Status: Never Alcohol Intake: never Drug use: Never Substance use type: does not use Do you feel safe at home: Yes Do you feel safe in your relationship?: Yes Meds Home Medications Medication Instructions Recorded Confirmed Type ascorbic acid (vitamin C) [Vitamin 500 mg PO DAILY 05/15/13 12/24/18 History C] [id number] acid 1 tab-cap PO DAILY tab-cap 05/15/13 12/24/18 History [Multi Complete-Iron Tablet] vitamin E 400 unit PO DAILY #1 05/15/13 12/24/18 History garlic 1 ea PO DAILY 05/21/14 12/24/18 History omega-3 fatty acids-fish oil [Fish 1 ea PO DAILY 06/10/15 12/24/18 History Oil 1,000 Mg Capsule] furosemide [Lasix] 20 mg PO DAILY tab-cap 07/12/17 12/24/18 History Metoprolol Succinate 100 mg PO DAILY #90 tab-cap 09/14/17 12/24/18 Clinic cyanocobalamin (vitamin B-12) 100 mcg PO DAILY 12/24/18 12/24/18 History [Vitamin B-12] thiamine HCl (vitamin B1) [Vitamin 100 mg PO DAILY 12/24/18 12/24/18 History B-1] Allergies Allergy/AdvReac Type Severity Reaction Status Date / Time feathers Allergy Intermediate Watery Unverified 12/24/18 10:27 eyes, sneezing Dust Allergy Intermediate Watery Uncoded 12/24/18 10:27 eyes, sneezing, Environmental Allergy Intermediate Running Uncoded 12/24/18 10:27 nose, watery eyes, sneezing Exam Narrative Exam Narrative: General: Sitting up in the chair, alert and oriented x3, pleasant and cooperative, no acute distress. HEENT: Normocephalic, atraumatic, pupils equal round, extraocular movements intact, mucous membranes moist. Neck: Supple, no JVD, no lymphadenopathy. Respiratory: Respirations even and unlabored, lung sounds clear to auscultation throughout. Speaks in complete sentences with no shortness of breath. Harsh barking cough noted. Cardiovascular: Heart has regular rate and rhythm, no murmur appreciated. Gastrointestinal: +bowel sounds, soft, nontender on palpation, no masses appreciated. Extremities: no clubbing, cyanosis or edema. Pedal pulses palpable bilaterally. Results Labs : 12/24/18 10:32 12/24/18 10:32 Laboratory Results - last 24 hr 12/24/18 12/24/18 12/24/18 10:32 10:32 10:32 WBC 6.87 RBC 3.76 L Hgb 10.9 L Hct 33.8 L MCV 89.9 MCH 29.0 MCHC 32.2 RDW 13.2 Plt Count 218 MPV 10.8 Immature Gran % 0.1 Neutrophils % 77.1 Lymphocytes % 10.9 Monocytes % 10.3 Eosinophils % 1.2 Basophils % 0.4 Absolute Neutrophils 5.29 Absolute Lymphocytes 0.75 L Absolute Monocytes 0.71 H Absolute Eosinophils 0.08 Absolute Basophils 0.03 Sodium 139 Potassium 4.4 Chloride 102 Carbon Dioxide 25.7 Anion Gap 11.3 H BUN 66 H Creatinine 5.61 H* Estimated GFR/1.73 m2 7.63 Glucose 113 H Calcium 13.8 H* Magnesium 2.3 Total Bilirubin 0.7 AST 19 ALT 22 Alkaline Phosphatase 91 Lactate Dehydrogenase 180 Total Protein 8.1 Albumin 3.4 Urine Color Urine Clarity Urine pH Ur Specific [place] Urine Protein Urine Ketones Urine Blood Urine Nitrite Urine Bilirubin Urine Urobilinogen Ur Leukocyte Esterase Urine RBC Urine WBC Ur Epithelial Cells Urine Crystals Urine Bacteria Urine Casts Urine Mucus Urine Other Ur Culture Indicated? Ur Random Albumin U Random Total Protein Urine Glucose Ur Protein 24 Hr Calc Urine Globulin Urine Random PEP Note Urine Immunofixation 12/24/18 12/24/18 12:20 12:34 WBC RBC Hgb Hct MCV MCH MCHC RDW Plt Count MPV Immature Gran % Neutrophils % Lymphocytes % Monocytes % Eosinophils % Basophils % Absolute Neutrophils Absolute Lymphocytes Absolute Monocytes Absolute Eosinophils Absolute Basophils Sodium Potassium Chloride Carbon Dioxide Anion Gap BUN Creatinine Estimated GFR/1.73 m2 Glucose Calcium Magnesium Total Bilirubin AST ALT Alkaline Phosphatase Lactate Dehydrogenase Total Protein Albumin Urine Color Yellow Urine Clarity Clear Urine pH 7.0 Ur Specific [place] 1.015 Urine Protein 100 H Urine Ketones Negative Urine Blood Trace-lysed H Urine Nitrite Negative Urine Bilirubin Negative Urine Urobilinogen 0.2 Ur Leukocyte Esterase Small H Urine RBC 3-5 H Urine WBC 5-10 Ur Epithelial Cells Many Urine Crystals Moderate amorphous Urine Bacteria Moderate Urine Casts 0-2 coarse granular Urine Mucus Negative Urine Other Few renal Ur Culture Indicated? No/sq. contamination Ur Random Albumin Cancelled U Random Total Protein Cancelled Urine Glucose Negative Ur Protein 24 Hr Calc Cancelled Urine Globulin Cancelled Urine Random PEP Note Cancelled Urine Immunofixation Cancelled Last Vital Signs Temp 36.7 C 12/24/18 14:43 Pulse 72 12/24/18 14:43 Resp 18 12/24/18 14:43 BP 143/74 H 12/24/18 14:43 Pulse Ox 98 12/24/18 14:43
--- NOTE | 2018-12-24 18:37 | DI.VRAD_ITS ---
EXAM: US Pelvis Complete, Transabdominal and US Pelvis, Transvaginal EXAM DATE/TIME: 12/24/2018 5:42 PM CLINICAL HISTORY: 63 years old, female; Abnormal findings; Mass/lesion; Lower quadrant, left; Prior surgery; Surgery date: 6+ months; Surgery type: PT states RT oophorectomy and appendectomy in 1981 TECHNIQUE: Imaging protocol: Real-time transabdominal and transvaginal pelvic ultrasound (complete) with image documentation. Transvaginal imaging was used for better evaluation of the endometrium and adnexa. COMPARISON: CT CHEST/ABD/PEL WO 12/24/2018 11:24 AM FINDINGS: Uterus/cervix: Uterus is normal in size and contour measuring 7.1 cm sagittal by 3.3 cm AP by 4.0 cm transverse. Within the anterior uterine midbody, there is circumscribed, oval hypoechoic 1.0 cm mass consistent with intramural fibroid. There is subtle linear hypoechoic irregularity of the anterior, lower uterine segment, suspicious for prior section, correlate with surgical history. Endometrium measures up to 0.6 cm in thickness, within normal limits. Cervix is closed without focal abnormality. Right adnexa: Right ovary is surgically absent. No right adnexal mass or significant free fluid. Left adnexa: Left adnexa measures up to 4.5 cm x 2.7 cm x 5.1 cm. There is complex, avascular hypoechoic mass within the left adnexa. No intrinsic vascularity. There is suggestion of thin internal septation, however study limitations limited evaluation. Normal color Doppler flow. Free fluid: No suspicious pelvic ascites. Bladder: Unremarkable as visualized. IMPRESSION: 1. Complex, avascular left adnexal mass, favor complex cyst. Consider surgical evaluation. 2. Anterior uterine midbody 1.0 cm intramural hypoechoic mass, likely fibroid. Dictated and Authenticated by: Bladimir Pina MD. Ordering:IRIS Nair MD
[2018-12-24 20:53] LABS: Ionized Calcium 1.58 mmol/L (1.12-1.32)
[2018-12-24] MEDS: Zolpidem 5 MG TAB PO (21:50)
[2018-12-24] MEDS: Benzonatate 100 MG CAP PO (21:51)
[2018-12-24] MEDS: Normal Saline 1,000 ML 75 ML IV (23:36)
[2018-12-25 03:50] VITALS: BP 138/76; PULSE 72; RESP 18; TEMP 36.9; O2SAT 95
[2018-12-25] MEDS: Heparin 5,000 UNITS/ML VIAL 5000 UNITS SC ×3 (05:17→22:34)
[2018-12-25 06:55] LABS: Abs Immature Grans 0.02 k/cumm (0.0-0.09); Absolute Basophil Count 0.04 k/cumm (0.0-0.2); Absolute Eosinophil Count 0.21 k/cumm (0.0-0.7); Absolute Lymphocyte Count 0.64 k/cumm (1.2-3.4); Absolute Monocyte Count 0.73 k/cumm (0.11-0.7); Absolute Neutrophil Count 3.78 k/cumm (1.2-6.7); Basophils % 0.7; Eosinophils % 3.9; HCT 30.1 % (36.0-46.0); HGB 9.7 g/dL (12.0-15.5); Immature Grans % 0.4; Lymphocytes % 11.8; Mean Corp. HGB Concentration 32.2 g/dL (32.0-36.0); Mean Corpuscular Hemoglobin 29.4 pg (27.0-33.0); Mean Corpuscular Volume 91.2 fL (80-95); Mean Platelet Volume 10.8 fL (8.0-11.0); Monocytes % 13.5; Neutrophils % 69.7; Platelet Count 174 x1000/uL (130-400); White Blood Cell Count 5.42 k/cumm (4.4-10.8)
[2018-12-25 07:21] LABS: ALT 18 U/L (12-78); AST 20 U/L (15-37); Alkaline Phosphatase 79 U/L (46-116); Anion Gap 11.8 mmol/L (3-11); BUN 59 mg/dL (7-18); Bilirubin, Total 0.6 mg/dL (0.2-1.0); CO2 23.2 mmol/L (21.0-32.0); Calcium 11.5 mg/dL (8.5-10.1); Chloride 105 mmol/L (98-107); Estimated GFR 8.36 (mL/min/1.73m2); Glucose 89 mg/dL (70-100); Magnesium 2.1 mg/dL (1.8-2.4); Potassium 4.3 mmol/L (3.5-5.1); Sodium 140 mmol/L (136-145); Total Protein 7.2 g/dL (6.4-8.2)
[2018-12-25 07:25] LABS: Diff Comment RBC Morph Reviewed; RBC Morphology Normal
[2018-12-25 07:26] LABS: CREATININE 5.18 mg/dL (0.55-1.02)
[2018-12-25 07:45] VITALS: BP 153/84; PULSE 60; RESP 20; TEMP 36.1; O2SAT 97
[2018-12-25 08:45] LABS: Kappa Free Light Chain 10.15 mg/dl (0.33-1.94); Lambda Free Light Chain 5.14 mg/dl (0.57-2.63)
[2018-12-25] MEDS: Metoprolol CR 100 MG TABCR PO (08:46)
--- NOTE | 2018-12-25 10:25 | INITIAL_ITS ---
- If Service Date Differs Date of service: 12/25/18 Time of Service: 10:19 Care Management Initial Assess REASON FOR HOSPITALIZATION:: Acute renal failure PAST MEDICAL HISTORY/PAST SURGICAL HISTORY:: Dilated cardiomyopathy (Acute). Essential hypertension. Appendectomy. Diagnostic Laproscopy (~1980). 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 Jen has two children whom are not local though are supportive. Jen is independent at baseline, drives, and manages AD[employer]'s CURRENT FUNCTIONAL STATUS:: Currently Jen is lying in bed, she has multiple visitors in her room. ADVANCE DIRECTIVES:: None on file Has patient been provided with information about the portal?: Yes Did the patient sign up for the portal?: No CODE STATUS:: Full Code INSURANCE COVERAGE / FINANCIAL ISSUES:: BCBS CURRENT HOME/COMMUNITY SERVICES/EQUIPMENT:: Currently Jen has no services or medical equipment in the community. PRIMARY CARE PHYSICIAN:: Dr. Alvarez POTENTIAL DISCHARGE NEEDS:: F/U appointment with PCP PATIENT/FAMILY EDUCATION NEEDS:: Review DC instructions, any limitations, and ongoing DC planning discussion. Discuss 'Ask Me Three' ANTICIPATED BARRIERS TO DISCHARGE:: None identified at this time. TRANSPORTATION:: Via private vehicle PLAN:: Jen will return home with no anticipated services once medically cleared. She will F/U with PCP and plan of care as prescribed. Jen will transport via private vehicle when ready.
[2018-12-25 11:41] VITALS: BP 145/76; PULSE 68; RESP 18; TEMP 36.7; O2SAT 99
[2018-12-25 12:15] LABS: Albumin 51.4 % (55.8-66.1); Total Protein 7.4 g/dl (6.3-8.2)
--- NOTE | 2018-12-25 12:27 | PHARADMIT ---
Addendum entered by Terrance Ladd III 12/27/18 15:10: Pharmacy Note Subjective Irregular heart beat overnight,placed on tele. Renal function and Calcium level improving. Provider concern of myeloma vs metastatic disease, has benign Adnexal mass per [employer] consult. Objective VS-OK SCr-4.34 Ca++ 10.7 other Lytes-ok, H&H- 9.2/29.1 Plts-145 Wgt-85.4 kg had BM Assessment SYMBICORT ADDED, Patient has received dose of Zometa in ER on 12/24 Plan Continue hydration with IV fluids Original Note: Admission Pharmacy Clinical Review ENA, SUSPECTED MULTIPLE MYELOMA. ADNEXAL MASS Code Status Full Code Current Weight Wgt-84.8 kg Renally Cleared and Narrow Therapeutic Index Meds CrCl~ 11 mL/min Meds-OK QTc Value / Action Taken QTc-420 (na) BP Control, Fever BP-145/76 Tmax- 37.2C Electrolytes reviewed Na- 140 K+4.3 Mag-2.1 DVT Prophylaxis Heparin SC Opiate Usage / Scheduled Bowel Regimen Ordered No Yes Plt/SCr for Heparin / Enoxaparin Plts-174 SCr-5.18 INR for Warfarin NA H/H stable, WBC/Bands H&H- 9.7/30.1 WBC- 5.42 Antibiotic appropriateness none Cultures and Sensitivities none NA DM control / Insulin Dosing BG- 89 Heart Failure (Check EF%) (DARIELA's, B-Block, Diuretics) Toprol-XL, IV to PO Switch No Home Meds Reviewed Yes Home Meds Not Ordered Vit-C, Lisinopril, Lasix, Spironolactone, FishOil, M-shailesh, Thiamine, Garlic, B-12, Vit-E, Comments Received Zometa on 12/24/2018
[2018-12-25 14:33] LABS: Albumin, Urine % 10.4 %; Comment SEE COMMENTS; Globulins, Urine % 89.6; Total Protein Urine 54 mg/dl
[2018-12-25] MEDS: Benzonatate 200 MG CAP PO ×2 (15:01→20:25)
--- NOTE | 2018-12-25 15:08 | W.PM.PROGNOT ---
Date of Service Date of service: 12/25/18 Time of Service: 15:09 Assessment and Plan (1) Acute renal failure: Current visit: Yes Status: Acute Mild improvement. BUN improved from 66 to 59, Creatinine improved to 5.18 from 5.61, potassium remains normal. Does not appear to be obstructive process. Bladder scans have shown no PVR. Continue to cautiously hydrate with IV fluids, avoid nephrotoxic medications. Reassess renal function in the morning. Carefully monitor fluid status as she has a history of cardiomyopathy. BMP in the morning. (2) Hypercalcemia: Current visit: Yes Status: Acute Calcium level improved to 11.5 from 13.8 yesterday. Concern for myeloma versus metastatic disease. Case previously discussed with hematology/oncology by emergency department provider, recommend hydration biphosphonate for calcium control. Received Zometa in the emergency department. Continue to monitor calcium. (3) Lytic lesion of bone on x-ray: Current visit: Yes Status: Acute Noted on CT. With concern for myeloma versus metastatic disease. Case discussed with hematology/oncology as above. Will continue to hydrate with IV fluids. Send out labs pending as recommended by hematology/oncology. Dr. Lyn requests follow-up call with update on patient's condition. Ca-125 pending. (4) Adnexal mass: Current visit: Yes Status: Acute Pelvic ultrasound shows complex cystic mass. [employer] consulted and feels this mass represents a cyst, see note for details. (5) Lung nodule: Current visit: Yes Status: Acute 1.8 cm left lingular nodule noted on CT. Case discussed with Hematology/Oncology as above. Trial nebulizer treatment to see if this helps with cough, ? related to bronchospasm. If nebulizer treatments provide relief from cough, consider adding scheduled symbicort inhaler. Schedule sallie dwyer. Will need follow up as an outpatient. (6) Cardiomyopathy: Current visit: Yes Status: Acute Presumed to be stress related in the setting of multiple losses over the past 15 years. Most recent echocardiogram in 08/2018 showed LVEF of 40-45%. Monitor fluid status closely with daily weights and strict intake and output. (7) DVT prophylaxis: Current visit: Yes Status: Acute Subcutaneous heparin. (8) Discharge planning issues: Current visit: Yes Status: Acute She is a FULL code. High concern for multiple myeloma vs metastatic disease. Her case was previously discussed with hematology/oncology, she will need to follow up with heme/onc, as outpatient if she is stable, versus possible transfer if her renal function and calcium levles do not stabilize. This case was discussed with Dr. Beatty who is in agreement. Subjective Interval history since last seen: Mrs. Guevara reports feeling less fatigued today. She continues to have a harsh, barking cough, nonproductive. She continues to deny shortness of breath or wheezing. She remains pain-free. She denies dizziness, nausea, vomiting or diarrhea. She is eating and drinking, her appetite is mildly improved. She is moving her bowels. Exam Narrative Exam Narrative: General: Sitting up in the chair, alert and oriented x3, pleasant and cooperative, no acute distress. HEENT: Normocephalic, atraumatic, pupils equal round, extraocular movements intact, mucous membranes moist. Neck: Supple, no JVD, no lymphadenopathy. Respiratory: Respirations even and unlabored, lung sounds clear to auscultation throughout. Speaks in complete sentences with no shortness of breath. Harsh barking cough noted. Cardiovascular: Heart has regular rate and rhythm, no murmur appreciated. Gastrointestinal: +bowel sounds, soft, nontender on palpation, no masses appreciated. Extremities: no clubbing, cyanosis or edema. Pedal pulses palpable bilaterally. Objective Objective Clinical Data: Abnormal lab results 12/24/18 12/24/18 12/25/18 Range/Units 10:32 11:04 06:26 RBC (4.00-5.20) m/cumm Hgb (12.0-15.5) g/dL Hct (36.0-46.0) % Absolute Lymphocytes (1.2-3.4) k/cumm Absolute Monocytes (0.11-0.7) k/cumm Anion Gap 11.8 H (3-11) mmol/L BUN 59 H (7-18) mg/dL Creatinine 5.18 H* (0.55-1.02) mg/dL Calcium 11.5 H (8.5-10.1) mg/dL Ionized Calcium 1.58 H (1.12-1.32) mmol/L Albumin 3.0 L (3.4-5.0) g/dL Free [place] LC, Quant 10.15 H (0.33-1.94) mg/dL Free [place]ambda LC, Quant 5.14 H (0.57-2.63) mg/dL Free [place]/Lambda Ratio 1.97 H (0.26-1.65) 12/25/18 Range/Units 06:26 RBC 3.30 L (4.00-5.20) m/cumm Hgb 9.7 L (12.0-15.5) g/dL Hct 30.1 L (36.0-46.0) % Absolute Lymphocytes 0.64 L (1.2-3.4) k/cumm Absolute Monocytes 0.73 H (0.11-0.7) k/cumm Anion Gap (3-11) mmol/L BUN (7-18) mg/dL Creatinine (0.55-1.02) mg/dL Calcium (8.5-10.1) mg/dL Ionized Calcium (1.12-1.32) mmol/L Albumin (3.4-5.0) g/dL Free [place] LC, Quant (0.33-1.94) mg/dL Free Lambda LC, Quant (0.57-2.63) mg/dL Free [place]/Lambda Ratio (0.26-1.65) Vital Signs Temperature 36.7 C 12/25/18 11:41 Temperature Source Tympanic 12/25/18 11:41 Pulse 68 12/25/18 11:41 Pulse Rhythm Regular 12/25/18 09:05 Pulse 70 12/24/18 14:00 Respiratory Rate 18 12/25/18 11:41 Respiratory Effort 12/25/18 09:05 Respiratory Depth Normal 12/25/18 09:05 Respiratory Pattern Normal 12/25/18 09:05 Blood Pressure 145/76 H 12/25/18 11:41 Blood Pressure Position Sitting 12/24/18 10:25 Pulse Oximetry 99 12/25/18 11:41 Oxygen Delivery Method Room Air 12/25/18 11:41 Oxygen Flow Rate 0 12/25/18 11:41 Pain Level 0 12/25/18 11:41 Comment 12/25/18 03:50 Intake & Output 12/24/18 12/25/18 12/25/18 23:59 11:59 23:59 Intake Total 1832.5 / 2832.5 738.75 / 978.75 240 / 978.75 Output Total 500 / 500 1850 / 1850 Balance 1332.5 / 2332.5 -1111.25 / -871.25 240 / -871.25 Weight 81.647 kg 84.8 kg Intake: IV 1342.5 / 2342.5 498.75 / 498.75 Oral 490 / 490 240 / 480 240 / 480 Output: Urine 500 / 500 1850 / 1850 Other: Urine Color Yellow Pale Urine Appearance Clear Clear Urine Odor None None Stool Size Large Stool Characteristics Soft Formed Brown Voiding Methods Toilet Toilet Laboratory Results WBC 5.42 k/cumm (4.4-10.8) 12/25/18 06:26 RBC 3.30 m/cumm (4.00-5.20) L 12/25/18 06:26 Hgb 9.7 g/dL (12.0-15.5) L 12/25/18 06:26 Hct 30.1 % (36.0-46.0) L 12/25/18 06:26 MCV 91.2 fL (80-95) 12/25/18 06:26 MCH 29.4 pg (27.0-33.0) 12/25/18 06:26 MCHC 32.2 g/dL (32.0-36.0) 12/25/18 06:26 RDW 13.0 % (11.7-14.6) 12/25/18 06:26 Plt Count 174 x1000/uL (130-400) 12/25/18 06:26 MPV 10.8 fL (8.0-11.0) 12/25/18 06:26 Immature Gran % 0.4 12/25/18 06:26 Neutrophils % 69.7 12/25/18 06:26 Lymphocytes % 11.8 12/25/18 06:26 Monocytes % 13.5 12/25/18 06:26 Eosinophils % 3.9 12/25/18 06:26 Basophils % 0.7 12/25/18 06:26 Absolute Neutrophils 3.78 k/cumm (1.2-6.7) 12/25/18 06:26 Absolute Lymphocytes 0.64 k/cumm (1.2-3.4) L 12/25/18 06:26 Absolute Monocytes 0.73 k/cumm (0.11-0.7) H 12/25/18 06:26 Absolute Eosinophils 0.21 k/cumm (0.0-0.7) 12/25/18 06:26 Absolute Basophils 0.04 k/cumm (0.0-0.2) 12/25/18 06:26 Differential Comment Rbc morph reviewed 12/25/18 06:26 RBC Morphology Normal 12/25/18 06:26 Sodium 140 mmol/L (136-145) 12/25/18 06:26 Potassium 4.3 mmol/L (3.5-5.1) 12/25/18 06:26 Chloride 105 mmol/L (98-107) 12/25/18 06:26 Carbon Dioxide 23.2 mmol/L (21.0-32.0) 12/25/18 06:26 Anion Gap 11.8 mmol/L (3-11) H 12/25/18 06:26 BUN 59 mg/dL (7-18) H 12/25/18 06:26 Creatinine 5.18 mg/dL (0.55-1.02) H* 12/25/18 06:26 Estimated GFR/1.73 m2 8.36 (mL/min/1.73m2) 12/25/18 06:26 Glucose 89 mg/dL (70-100) 12/25/18 06:26 Calcium 11.5 mg/dL (8.5-10.1) H 12/25/18 06:26 Ionized Calcium 1.58 mmol/L (1.12-1.32) H 12/24/18 11:04 Magnesium 2.1 mg/dL (1.8-2.4) 12/25/18 06:26 Total Bilirubin 0.6 mg/dL (0.2-1.0) 12/25/18 06:26 Conjugated Bilirubin 0.10 mg/dL (0.00-0.20) 12/25/18 06:26 AST 20 U/L (15-37) 12/25/18 06:26 ALT 18 U/L (12-78) 12/25/18 06:26 Alkaline Phosphatase 79 U/L (46-116) 12/25/18 06:26 Lactate Dehydrogenase 180 U/L (81-234) 12/24/18 10:32 Total Protein 7.2 g/dL (6.4-8.2) 12/25/18 06:26 Albumin 3.0 g/dL (3.4-5.0) L 12/25/18 06:26 Urine Color Yellow (Yellow) 12/24/18 12:20 Urine Clarity Clear 12/24/18 12:20 Urine pH 7.0 (5-8) 12/24/18 12:20 Ur Specific [place] 1.015 (1.005-1.025) 12/24/18 12:20 Urine Protein 100 mg/dL (Negative) H 12/24/18 12:20 Urine Ketones Negative mg/dL (Negative) 12/24/18 12:20 Urine Blood Trace-lysed (Negative) H 12/24/18 12:20 Urine Nitrite Negative (Negative) 12/24/18 12:20 Urine Bilirubin Negative (Negative) 12/24/18 12:20 Urine Urobilinogen 0.2 EU/dL (Up TO 0.2) 12/24/18 12:20 Ur Leukocyte Esterase Small (Negative) H 12/24/18 12:20 Urine RBC 3-5 (0-2) H 12/24/18 12:20 Urine WBC 5-10 HPF (0-5) 12/24/18 12:20 Ur Epithelial Cells Many HPF (Negative) 12/24/18 12:20 Urine Crystals Moderate amorphous HPF (Negative) 12/24/18 12:20 Urine Bacteria Moderate HPF (Negative) 12/24/18 12:20 Urine Casts 0-2 coarse granular LPF (Negative) 12/24/18 12:20 Urine Mucus Negative (Negative) 12/24/18 12:20 Urine Other Few renal (Negative) 12/24/18 12:20 Ur Culture Indicated? No/sq. contamination 12/24/18 12:20 Ur Random Albumin Cancelled 12/24/18 12:34 U Random Total Protein Cancelled 12/24/18 12:34 Urine Glucose Negative mg/dL (Negative) 12/24/18 12:20 Ur Protein 24 Hr Calc Cancelled 12/24/18 12:34 Urine Globulin Cancelled 12/24/18 12:34 Urine Random PEP Note Cancelled 12/24/18 12:34 Urine Immunofixation Cancelled 12/24/18 12:34 Free [place] LC, Quant 10.15 mg/dL (0.33-1.94) H 12/24/18 10:32 Free [place] LC, Quant 5.14 mg/dL (0.57-2.63) H 12/24/18 10:32 Free [place]/Lambda Ratio 1.97 (0.26-1.65) H 12/24/18 10:32
[2018-12-25 15:55] VITALS: BP 140/82; PULSE 70; RESP 16; TEMP 36.7; O2SAT 97
[2018-12-25] MEDS: Normal Saline 1,000 ML 75 ML IV (16:38)
--- NOTE | 2018-12-25 17:09 | CHAPLAIN ---
I visited with Jen last evening when she was admitted and again this morning. 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 She has two adult children who live out of state. Jen most recently cared for her mom, until her mom with hospice care. Jen's was killed in a car accident several years ago and a son drowned after the of her . She said she's had a bad cough for quite a while now. As of this morning, she told me she didn't know any results from any of the tests she had yesterday other than something was found on her lung. Jen has had several visitors from the [facility] today, and her legal administrative assistant, Rev. Jolanta Granado was here with her yesterday and today.
[2018-12-25 19:33] VITALS: BP 141/81; PULSE 74; RESP 18; TEMP 37.5; O2SAT 98
[2018-12-25] MEDS: guaiFENesin/D-METHORPHAN HB 5 ML CUP 10 ML PO (22:34)
[2018-12-26] MEDS: Heparin 5,000 UNITS/ML VIAL 5000 UNITS SC ×3 (06:34→21:26)
[2018-12-26 07:13] LABS: HCT 28.7 % (36.0-46.0); HGB 9.2 g/dL (12.0-15.5); Mean Corp. HGB Concentration 32.1 g/dL (32.0-36.0); Mean Corpuscular Hemoglobin 28.9 pg (27.0-33.0); Mean Corpuscular Volume 90.3 fL (80-95); Mean Platelet Volume 10.5 fL (8.0-11.0); Platelet Count 149 x1000/uL (130-400); RBC 3.18 m/cumm (4.00-5.20); RBC Distribution Width 12.9 % (11.7-14.6); White Blood Cell Count 7.02 k/cumm (4.4-10.8)
[2018-12-26 07:29] LABS: Anion Gap 11.8 mmol/L (3-11); BUN 60 mg/dL (7-18); CO2 21.2 mmol/L (21.0-32.0); Chloride 105 mmol/L (98-107); Estimated GFR 9.27 (mL/min/1.73m2); Glucose 96 mg/dL (70-100); Potassium 4.1 mmol/L (3.5-5.1); Sodium 138 mmol/L (136-145)
[2018-12-26 07:32] LABS: CREATININE 4.74 mg/dL (0.55-1.02)
[2018-12-26 07:33] VITALS: BP 146/75; PULSE 72; RESP 20; TEMP 37.2; O2SAT 96
[2018-12-26] MEDS: Metoprolol CR 100 MG TABCR PO (08:00)
[2018-12-26] MEDS: Benzonatate 200 MG CAP PO ×2 (08:00→12:52)
[2018-12-26] MEDS: Normal Saline 1,000 ML 75 ML IV ×2 (08:12→21:29)
[2018-12-26] MEDS: Normal Saline Flush 10 ML SYR IVP (08:12)
--- NOTE | 2018-12-26 09:57 | W.GYNCONSULT ---
Date of service: 12/25/18 Time of Service: 15:57 Assessment and Plan (1) Adnexal mass: Current visit: Yes Status: Acute Greater than 50% of today's visit was spent in [id number] counseling with the patient regarding the ultrasound results. The adnexal mass appears to be a benign cystic lesion. There may be a septation but no evidence of excrescences, free fluid, or a miliary spread of tumor, no seen with ovarian pathology. CA 125 is currently pending. I explained to the patient that the ovarian lesion does not require further follow-up at this time and can be addressed by myself at a later date. . My findings to the was team. I appreciate the opportunity to meet this very delightful patient. (2) Hypercalcemia: Current visit: Yes Status: Acute Slow decline serum calcium. Continue gentle hydration. (3) Acute renal failure: Current visit: Yes Status: Acute Slowly improving. Qualifiers: Acute renal failure type: unspecified Qualified Code(s): N17.9 - Acute kidney failure, unspecified (4) Lytic lesion of bone on x-ray: Current visit: No Status: Acute It is unlikely that the ovarian mass is a result of her lytic bone lesion. It is unusual for ovarian neoplasm to present with metastases to the bones and no evidence of local spread in the pelvis. I will follow-up on patient's CA 125. History of Present Illness Chief Complaint: Left adnexal mass postmenopausal female Narrative: Patient is a 63-year-old female seen at the request of Xiao Walden DEPALLETIZER OPERATOR regarding finding of a approximately 5 cm hypoechoic mass of the left adnexa. Patient is currently inpatient at [facility] with a diagnosis of hypercalcemia and a lytic bone lesion. HPI Patient was admitted to the hospitalist service after outpatient testing revealed acute renal failure and hypercalcemia. Imaging studies concerning for lytic bone lesion, and a 18 mm left lung nodule. Pelvic ultrasound showed a complex cystic mass GRAPHIC EDITOR consult was requested to evaluate the. Left adnexal mass to determine if there was any correlation with her current imaging studies and lab abnormalities. Patient has been experiencing a nonproductive cough for approximately 4 months. On presentation to her primary care provider's office she had a chemistry panel which showed a calcium of 13.8 creatinine [address]. Abdominal pelvic CT results as noted above. Patient being asymptomatic for pelvic pain early satiety changes in bowel or bladder habits. She is not sexually active. Regular GRAPHIC EDITOR care no history of abnormal Paps or history of abnormal mammograms. Review of Systems Constitutional Reports fatigue (Improved) and Reports other (Nonproductive cough) Respiratory Reports cough Gastrointestinal Reports system reviewed and no additional complaints, except as docu Genitourinary Reports amenorrhea, Reports prolapse symptoms (None) and Reports vaginal discharge (None) Musculoskeletal Reports system reviewed and no additional complaints, except as docu Integumentary/Breasts Reports as per HPI Neurologic Reports system reviewed and no additional complaints, except as docu Psychiatric Reports as per HPI Endocrine Reports fatigue (Improved) FORMERLY [facility], [facility] Medical History Dilated cardiomyopathy (Acute) Essential hypertension Surgical History Appendectomy Diagnostic Laproscopy (~1980) Oophrectomy, Left Family History Mother Dementia Father Prostate cancer Social History Smoking/Tobacco Use Status: Never Alcohol Intake: never Drug use: Never Substance use type: does not use Do you feel safe at home: Yes Do you feel safe in your relationship?: Yes Exam Const General: no acute distress Nutritional Appearance: well nourished Orientation: alert, awake and oriented x3 Resp Effort & Inspection: cough GI Palpation: soft and no hepatosplenomegaly General: deferred (Bimanual exam deferred) Speculum Exam - Vagina: other (Reviewed with patient of her pelvic ultrasound results) Results Last Vital Signs Temp 99.0 F 12/26/18 07:33 Pulse 72 12/26/18 07:33 Resp 20 12/26/18 07:33 BP 146/75 H 12/26/18 07:33 Pulse Ox 96 12/26/18 07:33 Labs : 12/26/18 06:55 12/26/18 06:55 Laboratory Results - last 24 hr 12/24/18 12/24/18 12/26/18 10:32 11:04 06:55 WBC RBC Hgb Hct MCV MCH MCHC RDW Plt Count MPV Sodium 138 Potassium 4.1 Chloride 105 Carbon Dioxide 21.2 Anion Gap 11.8 H BUN 60 H Creatinine 4.74 H* Estimated GFR/1.73 m2 9.27 Glucose 96 Calcium 11.0 H Ionized Calcium 1.58 H Free [place] LC, Quant 10.15 H Free Lambda LC, Quant 5.14 H Free [place]/Lambda Ratio 1.97 H 12/26/18 06:55 WBC 7.02 RBC 3.18 L Hgb 9.2 L Hct 28.7 L MCV 90.3 MCH 28.9 MCHC 32.1 RDW 12.9 Plt Count 149 MPV 10.5 Sodium Potassium Chloride Carbon Dioxide Anion Gap BUN Creatinine Estimated GFR/1.73 m2 Glucose Calcium Ionized Calcium Free [place] LC, Quant Free Lambda LC, Quant Free [place]/Lambda Ratio
[2018-12-26 11:20] VITALS: BP 144/72; PULSE 74; RESP 19; TEMP 36.8; O2SAT 97
[2018-12-26] MEDS: guaiFENesin/D-METHORPHAN HB 5 ML CUP 10 ML PO (12:52)
--- NOTE | 2018-12-26 14:58 | PDOC.CMPRO ---
- If Service Date Differs Date of service: 12/26/18 Time of Service: 14:58 Care Management Progress Note S/O: Jen is sitting up in her chair when this video game script writer visits this morning, she had a visitor whom is just leaving when CM enters. Jen reports that she is waiting to speak with the provider today, and is hopeful that she gets answers. She states that she told her children that they do not need to come at this time, and reports that they are very supportive. A: 63 y/o female admitted 12/24/18 for ENA P: Jen will return home with no anticipated services once medically cleared. She will F/U with PCP and plan of care as prescribed. Friend to transport when ready.
[2018-12-26 15:23] VITALS: RESP 1; O2SAT 97
[2018-12-26] MEDS: Albuterol/Ipratropium 3 ML UPD VIAL UPD ×2 (15:23→21:29)
[2018-12-26 15:30] VITALS: BP 136/74; PULSE 71; RESP 20; TEMP 37.9; O2SAT 96
--- NOTE | 2018-12-26 15:54 | PGE_ITS ---
Date of Service Date of service: 12/26/18 Time of Service: 15:53 Assessment and Plan (1) Acute renal failure: Current visit: Yes Status: Acute Mild improvement again today. Creatinine improved to 4.74, potassium remains normal. Does not appear to be obstructive process. Bladder scans showed no PVR. Continue to cautiously hydrate with IV fluids, avoid nephrotoxic medications. Reassess renal function in the morning. Carefully monitor fluid status as she has a history of cardiomyopathy. BMP in the morning. Qualifiers: Acute renal failure type: unspecified Qualified Code(s): N17.9 - Acute kidney failure, unspecified (2) Hypercalcemia: Current visit: Yes Status: Acute Calcium level improved to 11.0 from 13.8 on admission. Concern for my eloma versus metastatic disease. Case previously discussed with hematology/oncology by emergency department provider, recommend hydration biphosphonate for calcium control. Received Zometa in the emergency department. Continue to monitor calcium. (3) Lytic lesion of bone on x-ray: Current visit: No Status: Acute Noted on CT. With concern for myeloma versus metastatic disease. Case discussed with hematology/oncology as above. Will continue to hydrate with IV fluids. Send out labs pending as recommended by hematology/oncology. Dr. Lyn requests follow-up call with update on patient's condition. Ca-125 pending. (4) Adnexal mass: Current visit: Yes Status: Acute Pelvic ultrasound shows complex cystic mass. SUPERVISOR HAND WORKERS consulted and feels this mass represents a cyst, see note for details. (5) Lung nodule: Current visit: No Status: Acute 1.8 cm left lingular nodule noted on CT. Case discussed with Hematology/Oncology as above. Trial nebulizer treatment to see if this helps with cough, ? related to bronchospasm. If nebulizer treatments provide relief from cough, consider adding scheduled symbicort inhaler. Continue PRN antitussives. Will need follow up as an outpatient. (6) Cardiomyopathy: Current visit: No Status: Acute Presumed to be stress related in the setting of multiple losses over the past 15 years. Most recent echocardiogram in 08/2018 showed LVEF of 40-45%. Monitor fluid status closely with daily weights and strict intake and output. (7) DVT prophylaxis: Current visit: No Status: Acute Subcutaneous heparin. (8) Discharge planning issues: Current visit: No Status: Acute She is a FULL code. High concern for multiple myeloma vs metastatic disease. Her case was previously discussed with hematology/oncology, she will need to follow up with heme/onc, as outpatient if she is stable, versus possible transfer if her renal function and calcium levels do not stabilize. This case was discussed with Dr. Beatty who is in agreement. Subjective Interval history since last seen: Mrs. Guevara'moses only complaint is that she continues to have a harsh, barking, nonproductive cough. Her energy level is improving, she does not feel short of breath, she is not wheezing, she does not have any pain. She is eating and drinking, she denies dizziness, nausea, vomiting or diarrhea. Exam Narrative Exam Narrative: General: Sitting up in the chair, alert and oriented x3, pleasant and cooperative, in no acute distress. HEENT: Normocephalic, atraumatic, pupils equal round, extraocular movements intact, mucous membranes moist. Neck: Supple, no JVD, no lymphadenopathy. Respiratory: Respirations even and unlabored, lung sounds clear to auscultation throughout. Speaks in complete sentences with no shortness of breath. Harsh barking cough noted. Cardiovascular: Heart has regular rate and rhythm, no murmur appreciated. Gastrointestinal: +bowel sounds, soft, nontender on palpation, no masses appreciated. Extremities: no clubbing, cyanosis or edema. Pedal pulses palpable bilaterally. Objective Objective Clinical Data: Abnormal lab results 12/26/18 12/26/18 Range/Units 06:55 06:55 RBC 3.18 L (4.00-5.20) m/cumm Hgb 9.2 L (12.0-15.5) g/dL Hct 28.7 L (36.0-46.0) % Anion Gap 11.8 H (3-11) mmol/L BUN 60 H (7-18) mg/dL Creatinine 4.74 H* (0.55-1.02) mg/dL Calcium 11.0 H (8.5-10.1) mg/dL Vital Signs Temperature 36.8 C 12/26/18 11:20 Temperature Source Tympanic 12/26/18 11:20 Pulse 74 12/26/18 11:20 Pulse Rhythm Regular 12/26/18 08:15 Pulse 70 12/24/18 14:00 Respiratory Rate 19 12/26/18 11:20 Respiratory Effort 12/26/18 08:15 Respiratory Depth Normal 12/26/18 08:15 Respiratory Pattern Normal 12/26/18 08:15 Blood Pressure 144/72 H 12/26/18 11:20 Blood Pressure Position Sitting 12/24/18 10:25 Pulse Oximetry 97 12/26/18 15:23 Oxygen Delivery Method Room Air 12/26/18 15:23 Oxygen Flow Rate 0 12/26/18 15:23 Pain Level 0 12/26/18 11:20 Comment 12/25/18 03:50 Intake & Output 12/25/18 12/26/18 12/26/18 23:59 11:59 23:59 Intake Total 600 / 1338.75 1360 / 1600 240 / 1600 Output Total 1400 / 3250 950 / 1550 600 / 1550 Balance -800 / -1911.25 410 / 50 -360 / 50 Weight 84 kg Intake: IV 0 / 498.75 1000 / 1000 Oral 600 / 840 360 / 600 240 / 600 Output: Urine 1400 / 3250 950 / 1550 600 / 1550 Other: Urine Color Yellow Yellow Yellow Urine Appearance Clear Clear Clear Urine Odor None Voiding Methods Toilet Toilet Toilet Laboratory Results WBC 7.02 k/cumm (4.4-10.8) 12/26/18 06:55 RBC 3.18 m/cumm (4.00-5.20) L 12/26/18 06:55 Hgb 9.2 g/dL (12.0-15.5) L 12/26/18 06:55 Hct 28.7 % (36.0-46.0) L 12/26/18 06:55 MCV 90.3 fL (80-95) 12/26/18 06:55 MCH 28.9 pg (27.0-33.0) 12/26/18 06:55 MCHC 32.1 g/dL (32.0-36.0) 12/26/18 06:55 RDW 12.9 % (11.7-14.6) 12/26/18 06:55 Plt Count 149 x1000/uL (130-400) 12/26/18 06:55 MPV 10.5 fL (8.0-11.0) 12/26/18 06:55 Immature Gran % 0.4 12/25/18 06:26 Neutrophils % 69.7 12/25/18 06:26 Lymphocytes % 11.8 12/25/18 06:26 Monocytes % 13.5 12/25/18 06:26 Eosinophils % 3.9 12/25/18 06:26 Basophils % 0.7 12/25/18 06:26 Absolute Neutrophils 3.78 k/cumm (1.2-6.7) 12/25/18 06:26 Absolute Lymphocytes 0.64 k/cumm (1.2-3.4) L 12/25/18 06:26 Absolute Monocytes 0.73 k/cumm (0.11-0.7) H 12/25/18 06:26 Absolute Eosinophils 0.21 k/cumm (0.0-0.7) 12/25/18 06:26 Absolute Basophils 0.04 k/cumm (0.0-0.2) 12/25/18 06:26 Differential Comment Rbc morph reviewed 12/25/18 06:26 RBC Morphology Normal 12/25/18 06:26 Sodium 138 mmol/L (136-145) 12/26/18 06:55 Potassium 4.1 mmol/L (3.5-5.1) 12/26/18 06:55 Chloride 105 mmol/L (98-107) 12/26/18 06:55 Carbon Dioxide 21.2 mmol/L (21.0-32.0) 12/26/18 06:55 Anion Gap 11.8 mmol/L (3-11) H 12/26/18 06:55 BUN 60 mg/dL (7-18) H 12/26/18 06:55 Creatinine 4.74 mg/dL (0.55-1.02) H* 12/26/18 06:55 Estimated GFR/1.73 m2 9.27 (mL/min/1.73m2) 12/26/18 06:55 Glucose 96 mg/dL (70-100) 12/26/18 06:55 Calcium 11.0 mg/dL (8.5-10.1) H 12/26/18 06:55 Ionized Calcium 1.58 mmol/L (1.12-1.32) H 12/24/18 11:04 Magnesium 2.1 mg/dL (1.8-2.4) 12/25/18 06:26 Total Bilirubin 0.6 mg/dL (0.2-1.0) 12/25/18 06:26 Conjugated Bilirubin 0.10 mg/dL (0.00-0.20) 12/25/18 06:26 AST 20 U/L (15-37) 12/25/18 06:26 ALT 18 U/L (12-78) 12/25/18 06:26 Alkaline Phosphatase 79 U/L (46-116) 12/25/18 06:26 Lactate Dehydrogenase 180 U/L (81-234) 12/24/18 10:32 Total Protein 7.2 g/dL (6.4-8.2) 12/25/18 06:26 Albumin 3.0 g/dL (3.4-5.0) L 12/25/18 06:26 Urine Color Yellow (Yellow) 12/24/18 12:20 Urine Clarity Clear 12/24/18 12:20 Urine pH 7.0 (5-8) 12/24/18 12:20 Ur Specific [place] 1.015 (1.005-1.025) 12/24/18 12:20 Urine Protein 100 mg/dL (Negative) H 12/24/18 12:20 Urine Ketones Negative mg/dL (Negative) 12/24/18 12:20 Urine Blood Trace-lysed (Negative) H 12/24/18 12:20 Urine Nitrite Negative (Negative) 12/24/18 12:20 Urine Bilirubin Negative (Negative) 12/24/18 12:20 Urine Urobilinogen 0.2 EU/dL (Up TO 0.2) 12/24/18 12:20 Ur Leukocyte Esterase Small (Negative) H 12/24/18 12:20 Urine RBC 3-5 (0-2) H 12/24/18 12:20 Urine WBC 5-10 HPF (0-5) 12/24/18 12:20 Ur Epithelial Cells Many HPF (Negative) 12/24/18 12:20 Urine Crystals Moderate amorphous HPF (Negative) 12/24/18 12:20 Urine Bacteria Moderate HPF (Negative) 12/24/18 12:20 Urine Casts 0-2 coarse granular LPF (Negative) 12/24/18 12:20 Urine Mucus Negative (Negative) 12/24/18 12:20 Urine Other Few renal (Negative) 12/24/18 12:20 Ur Culture Indicated? No/sq. contamination 12/24/18 12:20 Ur Random Albumin Cancelled 12/24/18 12:34 U Random Total Protein Cancelled 12/24/18 12:34 Urine Glucose Negative mg/dL (Negative) 12/24/18 12:20 Ur Protein 24 Hr Calc Cancelled 12/24/18 12:34 Urine Globulin Cancelled 12/24/18 12:34 Urine Random PEP Note Cancelled 12/24/18 12:34 Urine Immunofixation Cancelled 12/24/18 12:34 Free [place] LC, Quant 10.15 mg/dL (0.33-1.94) H 12/24/18 10:32 Free Lambda LC, Quant 5.14 mg/dL (0.57-2.63) H 12/24/18 10:32 Free [place]/Lambda Ratio 1.97 (0.26-1.65) H 12/24/18 10:32
[2018-12-26] MEDS: Acetaminophen 325 MG TAB PO ×2 (16:21→21:29)
[2018-12-26 20:28] VITALS: BP 135/76; PULSE 73; RESP 20; TEMP 37; O2SAT 95
[2018-12-27] VITALS (10 sets, daily range): BP systolic 138–163; BP diastolic 71–102; PULSE 78–93; RESP 2–24; TEMP 36.7–38; O2SAT 93–95
[2018-12-27] MEDS: Heparin 5,000 UNITS/ML VIAL 5000 UNITS SC ×3 (06:40→21:14)
[2018-12-27 07:29] LABS: Abs Immature Grans 0.03 k/cumm (0.0-0.09); Absolute Basophil Count 0.03 k/cumm (0.0-0.2); Absolute Eosinophil Count 0.12 k/cumm (0.0-0.7); Absolute Lymphocyte Count 0.64 k/cumm (1.2-3.4); Absolute Monocyte Count 0.92 k/cumm (0.11-0.7); Absolute Neutrophil Count 5.85 k/cumm (1.2-6.7); Basophils % 0.4; Eosinophils % 1.6; HCT 29.1 % (36.0-46.0); HGB 9.2 g/dL (12.0-15.5); Immature Grans % 0.4; Lymphocytes % 8.4; Mean Corp. HGB Concentration 31.6 g/dL (32.0-36.0); Mean Corpuscular Hemoglobin 28.4 pg (27.0-33.0); Mean Corpuscular Volume 89.8 fL (80-95); Mean Platelet Volume 10.8 fL (8.0-11.0); Monocytes % 12.1; Neutrophils % 77.1; Platelet Count 145 x1000/uL (130-400); RBC 3.24 m/cumm (4.00-5.20); White Blood Cell Count 7.59 k/cumm (4.4-10.8)
[2018-12-27] MEDS: Metoprolol CR 100 MG TABCR PO (07:41)
[2018-12-27 08:17] LABS: Anion Gap 11.8 mmol/L (3-11); BUN 59 mg/dL (7-18); CO2 20.2 mmol/L (21.0-32.0); Calcium 10.7 mg/dL (8.5-10.1); Chloride 105 mmol/L (98-107); Estimated GFR 10.26 (mL/min/1.73m2); Glucose 102 mg/dL (70-100); Potassium 3.9 mmol/L (3.5-5.1); Sodium 137 mmol/L (136-145)
[2018-12-27 08:21] LABS: CREATININE 4.34 mg/dL (0.55-1.02)
[2018-12-27] MEDS: Normal Saline 1,000 ML 75 ML IV (10:29)
[2018-12-27 11:37] LABS: CA 125 11 U/mL (0-30)
--- NOTE | 2018-12-27 15:04 | CHAPLAIN ---
Jen continues to have many visitors, including her creative strategist, Rev. 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 Jen said she is feeling okay, and inhalers helped her get some sleep last night. She is still awaiting answers about her health issues and diagnosis. She said she knows she is here for at least one more night. Her son and daughter are supportive, but do not live locally. She seems to have a strong support network of friends.
--- NOTE | 2018-12-27 15:12 | W.PM.PROGNOT ---
Date of Service Date of service: 12/27/18 Time of Service: 15:12 Assessment and Plan (1) Acute renal failure: Current visit: Yes Status: Acute Mild improvement again today. Creatinine improved to 4.34, potassium remains normal. Does not appear to be obstructive process. Bladder scans showed no PVR. Likely related to underlying process. Continue to cautiously hydrate with IV fluids, avoid nephrotoxic medications. Continue IV hydration until Creatinine stabilizes. Reassess renal function in the morning. Carefully monitor fluid status as she has a history of cardiomyopathy. BMP in the morning. Qualifiers: Acute renal failure type: unspecified Qualified Code(s): N17.9 - Acute kidney failure, unspecified (2) Hypercalcemia: Current visit: Yes Status: Acute Calcium level improved to 10.7 from 13.8 on admission. Concern for myeloma versus metastatic disease. Case previously discussed with hematology/oncology by emergency department provider, recommend hydration biphosphonate for calcium control. Received Zometa in the emergency department. Continue to monitor calcium. (3) Lytic lesion of bone on x-ray: Current visit: No Status: Acute Noted on CT. With concern for myeloma versus metastatic disease. Continue to cough, improved with nebulizer treatments. Start scheduled Symbicort. Case discussed with hematology/oncology as above. Will continue to hydrate with IV fluids. Send out labs pending as recommended by hematology/oncology. Dr. Lyn requests follow-up call with update on patient's condition. Ca-125 pending. Care management is working on setting up follow up with heme/onc. (4) Adnexal mass: Current visit: Yes Status: Acute Pelvic ultrasound shows complex cystic mass. DEVELOPER ADVISOR consulted and feels this mass represents a cyst, see note for details. (5) Lung nodule: Current visit: No Status: Acute 1.8 cm left lingular nodule noted on CT. Case discussed with Hematology/Oncology as above. Continues with cough, ? related to bronchospasm. ebulizer treatments provide relief from cough, add symbicort inhaler. Continue PRN antitussives. Will need follow up as an outpatient. (6) Cardiomyopathy: Current visit: No Status: Acute Presumed to be stress related in the setting of multiple losses over the past 15 years. Most recent echocardiogram in 08/2018 showed LVEF of 40-45%. Tolerating IV fluids. Monitor fluid status closely with daily weights and strict intake and output. (7) DVT prophylaxis: Current visit: No Status: Acute Subcutaneous heparin. (8) Discharge planning issues: Current visit: No Status: Acute She is a FULL code. High concern for multiple myeloma vs metastatic disease. Her case was previously discussed with hematology/oncology, she will need to follow up with heme/onc, as outpatient if she is stable. This case was discussed with Dr. Beatty who is in agreement. Subjective Interval history since last seen: Mrs. Guevara reports improvement in her cough since she started taking nebulizer treatments. She continues to report that her only complaint is her cough, it is harsh, barking and nonproductive. She is tolerating the IV fluids, she denies any shortness of breath, change in her cough, sputum production or wheezing. No chest pain/pressure, palpitations, no edema. She is eating and drinking, she denies dizziness, nausea, vomiting or diarrhea. Exam Narrative Exam Narrative: General: Sitting up in the chair, alert and oriented x3, pleasant and cooperative, in no acute distress. HEENT: Normocephalic, atraumatic, pupils equal round, extraocular movements intact, mucous membranes moist. Neck: Supple, no JVD, no lymphadenopathy. Respiratory: Respirations even and unlabored, lung sounds clear to auscultation throughout. Speaks in complete sentences with no shortness of breath. Harsh, barking cough noted. Cardiovascular: Heart has regular rate and rhythm, no murmur appreciated. Gastrointestinal: +bowel sounds, soft, nontender on palpation, no masses appreciated. Extremities: no clubbing, cyanosis or edema. Pedal pulses palpable bilaterally. Objective Objective Clinical Data: Abnormal lab results 12/24/18 12/24/18 12/27/18 Range/Units 10:32 10:32 06:55 RBC (4.00-5.20) m/cumm Hgb (12.0-15.5) g/dL Hct (36.0-46.0) % MCHC (32.0-36.0) g/dL Absolute Lymphocytes (1.2-3.4) k/cumm Absolute Monocytes (0.11-0.7) k/cumm Carbon Dioxide 20.2 L (21.0-32.0) mmol/L Anion Gap 11.8 H (3-11) mmol/L BUN 59 H (7-18) mg/dL Creatinine 4.34 H* (0.55-1.02) mg/dL Glucose 102 H (70-100) mg/dL Calcium 10.7 H (8.5-10.1) mg/dL Albumin % (PEP) 51.4 L (55.8-66.1) % Riqdj-0-Suwjnnylh (%) 5.9 H (2.9-4.9) % Mhuv-8-Bwfofmeestrzo 15.70 H mcg/mL Gamma Globulins (%) 21.6 H (11.1-18.8) % 12/27/18 Range/Units 06:55 RBC 3.24 L (4.00-5.20) m/cumm Hgb 9.2 L (12.0-15.5) g/dL Hct 29.1 L (36.0-46.0) % MCHC 31.6 L (32.0-36.0) g/dL Absolute Lymphocytes 0.64 L (1.2-3.4) k/cumm Absolute Monocytes 0.92 H (0.11-0.7) k/cumm Carbon Dioxide (21.0-32.0) mmol/L Anion Gap (3-11) mmol/L BUN (7-18) mg/dL Creatinine (0.55-1.02) mg/dL Glucose (70-100) mg/dL Calcium (8.5-10.1) mg/dL Albumin % (PEP) (55.8-66.1) % Kupav-6-Rxevqoyfs (%) (2.9-4.9) % Fwpz-9-Yeuhetfkbpmkb mcg/mL Gamma Globulins (%) (11.1-18.8) % Vital Signs Temperature 37.5 C 12/27/18 11:15 Temperature Source Tympanic 12/27/18 11:15 Pulse 79 12/27/18 11:15 Pulse Rhythm Regular 12/27/18 07:35 Pulse 70 12/24/18 14:00 Respiratory Rate 20 12/27/18 11:15 Respiratory Effort 12/27/18 07:35 Respiratory Depth Normal 12/27/18 07:35 Respiratory Pattern Normal 12/27/18 07:35 Blood Pressure 148/78 H 12/27/18 11:15 Blood Pressure Position Sitting 12/24/18 10:25 Pulse Oximetry 95 12/27/18 11:15 Oxygen Delivery Method Room Air 12/27/18 11:15 Oxygen Flow Rate 0 12/27/18 11:15 Pain Level 0 12/27/18 11:15 Comment 12/25/18 03:50 Intake & Output 12/26/18 12/27/18 12/27/18 23:59 11:59 23:59 Intake Total 1236.25 / 2596.25 2015 / 5 360 / 2375 Output Total 2200 / 3150 2625 / 2625 Balance -963.75 / -553.75 -610 / -250 360 / -250 Weight 85.4 kg Intake: IV 996.25 / 1995. 975 / 975 Oral 240 / 600 1040 / 1400 360 / 1400 Output: Urine 2200 / 3150 2625 / 2625 Other: Urine Color Yellow Yellow Urine Appearance Clear Clear Urine Odor None None Comment hat in toilet Stool Size Large Stool Characteristics Soft Formed Brown Voiding Methods Toilet Toilet Laboratory Results WBC 7.59 k/cumm (4.4-10.8) 12/27/18 06:55 RBC 3.24 m/cumm (4.00-5.20) L 12/27/18 06:55 Hgb 9.2 g/dL (12.0-15.5) L 12/27/18 06:55 Hct 29.1 % (36.0-46.0) L 12/27/18 06:55 MCV 89.8 fL (80-95) 12/27/18 06:55 MCH 28.4 pg (27.0-33.0) 12/27/18 06:55 MCHC 31.6 g/dL (32.0-36.0) L 12/27/18 06:55 RDW 13.0 % (11.7-14.6) 12/27/18 06:55 Plt Count 145 x1000/uL (130-400) 12/27/18 06:55 MPV 10.8 fL (8.0-11.0) 12/27/18 06:55 Immature Gran % 0.4 12/27/18 06:55 Neutrophils % 77.1 12/27/18 06:55 Lymphocytes % 8.4 12/27/18 06:55 Monocytes % 12.1 12/27/18 06:55 Eosinophils % 1.6 04/12/19 06:55 Basophils % 0.4 12/27/18 06:55 Absolute Neutrophils 5.85 k/cumm (1.2-6.7) 12/27/18 06:55 Absolute Lymphocytes 0.64 k/cumm (1.2-3.4) L 12/27/18 06:55 Absolute Monocytes 0.92 k/cumm (0.11-0.7) H 12/27/18 06:55 Absolute Eosinophils 0.12 k/cumm (0.0-0.7) 12/27/18 06:55 Absolute Basophils 0.03 k/cumm (0.0-0.2) 12/27/18 06:55 Differential Comment Rbc morph reviewed 12/25/18 06:26 RBC Morphology Normal 12/25/18 06:26 Sodium 137 mmol/L (136-145) 12/27/18 06:55 Potassium 3.9 mmol/L (3.5-5.1) 12/27/18 06:55 Chloride 105 mmol/L (98-107) 12/27/18 06:55 Carbon Dioxide 20.2 mmol/L (21.0-32.0) L 12/27/18 06:55 Anion Gap 11.8 mmol/L (3-11) H 12/27/18 06:55 BUN 59 mg/dL (7-18) H 12/27/18 06:55 Creatinine 4.34 mg/dL (0.55-1.02) H* 12/27/18 06:55 Estimated GFR/1.73 m2 10.26 (mL/min/1.73m2) 12/27/18 06:55 Glucose 102 mg/dL (70-100) H 12/27/18 06:55 Calcium 10.7 mg/dL (8.5-10.1) H 12/27/18 06:55 Ionized Calcium 1.58 mmol/L (1.12-1.32) H 12/24/18 11:04 Magnesium 2.1 mg/dL (1.8-2.4) 12/25/18 06:26 Total Bilirubin 0.6 mg/dL (0.2-1.0) 12/25/18 06:26 Conjugated Bilirubin 0.10 mg/dL (0.00-0.20) 12/25/18 06:26 AST 20 U/L (15-37) 12/25/18 06:26 ALT 18 U/L (12-78) 12/25/18 06:26 Alkaline Phosphatase 79 U/L (46-116) 12/25/18 06:26 Lactate Dehydrogenase 180 U/L (81-234) 12/24/18 10:32 Total Protein 7.2 g/dL (6.4-8.2) 12/25/18 06:26 Total Protein (PEP) 7.4 g/dl (6.3-8.2) 12/24/18 10:32 Albumin 3.0 g/dL (3.4-5.0) L 12/25/18 06:26 Albumin % (PEP) 51.4 % (55.8-66.1) L 12/24/18 10:32 Wnabx-5-Crxknslfu (%) 5.9 % (2.9-4.9) H 12/24/18 10:32 Wzdyh-8-Hcjkjgvkn (%) 9.9 % (7.1-11.8) 12/24/18 10:32 Beta Globulins (%) 11.2 % (8.4-13.1) 12/24/18 10:32 Abjy-0-Ugqxgnniedarz 15.70 mcg/mL H 12/24/18 10:32 Gamma Globulins (%) 21.6 % (11.1-18.8) H 12/24/18 10:32 M-Logan % Not Applicable 12/24/18 10:32 PEP Comment See comment 12/24/18 10:32 CA 125 Antigen 11 U/mL (0-30) 12/26/18 06:55 Urine Color Yellow (Yellow) 12/24/18 12:20 Urine Clarity Clear 12/24/18 12:20 Urine pH 7.0 (5-8) 12/24/18 12:20 Ur Specific [place] 1.015 (1.005-1.025) 12/24/18 12:20 Urine Protein 100 mg/dL (Negative) H 12/24/18 12:20 Urine Ketones Negative mg/dL (Negative) 12/24/18 12:20 Urine Blood Trace-lysed (Negative) H 12/24/18 12:20 Urine Nitrite Negative (Negative) 12/24/18 12:20 Urine Bilirubin Negative (Negative) 12/24/18 12:20 Urine Urobilinogen 0.2 EU/dL (Up TO 0.2) 12/24/18 12:20 Ur Leukocyte Esterase Small (Negative) H 12/24/18 12:20 Urine RBC 3-5 (0-2) H 12/24/18 12:20 Urine WBC 5-10 HPF (0-5) 12/24/18 12:20 Ur Epithelial Cells Many HPF (Negative) 12/24/18 12:20 Urine Crystals Moderate amorphous HPF (Negative) 12/24/18 12:20 Urine Bacteria Moderate HPF (Negative) 12/24/18 12:20 Urine Casts 0-2 coarse granular LPF (Negative) 12/24/18 12:20 Urine Mucus Negative (Negative) 12/24/18 12:20 Urine Other Few renal (Negative) 12/24/18 12:20 Ur Culture Indicated? No/sq. contamination 12/24/18 12:20 Ur Random Albumin Cancelled 12/24/18 12:34 U Random Total Protein Cancelled 12/24/18 12:34 Urine Glucose Negative mg/dL (Negative) 12/24/18 12:20 Ur Protein 24 Hr Calc Cancelled 12/24/18 12:34 Urine Globulin Cancelled 12/24/18 12:34 Urine Random PEP Note Cancelled 12/24/18 12:34 Urine Immunofixation Cancelled 12/24/18 12:34 Free [place] LC, Quant 10.15 mg/dL (0.33-1.94) H 12/24/18 10:32 Free Lambda LC, Quant 5.14 mg/dL (0.57-2.63) H 12/24/18 10:32 Free [place]/Lambda Ratio 1.97 (0.26-1.65) H 12/24/18 10:32
--- NOTE | 2018-12-27 15:17 | PGE_ITS ---
Date of Service Date of service: 12/27/18 Time of Service: 15:12 Assessment and Plan (1) Acute renal failure: Current visit: Yes Status: Acute Mild improvement again today. Creatinine improved to 4.34, potassium remains normal. Does not appear to be obstructive process. Bladder scans showed no PVR. Likely related to underlying process. Continue to cautiously hydrate with IV fluids, avoid nephrotoxic medications. Continue IV hydration until Creatinine stabilizes. Reassess renal function in the morning. Carefully monitor fluid status as she has a history of cardiomyopathy. BMP in the morning. Qualifiers: Acute renal failure type: unspecified Qualified Code(s): N17.9 - Acute kidney failure, unspecified (2) Hypercalcemia: Current visit: Yes Status: Acute Calcium level improved to 10.7 from 13.8 on admission. Concern for myeloma versus metastatic disease. Case previously discussed with hematology/oncology by emergency department provider, recommend hydration biphosphonate for calcium control. Received Zometa in the emergency department. Continue to monitor calcium. (3) Lytic lesion of bone on x-ray: Current visit: No Status: Acute Noted on CT. With concern for myeloma versus metastatic disease. Continue to cough, improved with nebulizer treatments. Start scheduled Symbicort. Case discussed with hematology/oncology as above. Will continue to hydrate with IV fluids. Send out labs pending as recommended by hematology/oncology. Dr. Lyn requests follow-up call with update on patient's condition. Ca-125 pending. Care management is working on setting up follow up with heme/onc. (4) Adnexal mass: Current visit: Yes Status: Acute Pelvic ultrasound shows complex cystic mass. CLINICAL INFORMATICS MANAGER consulted and feels this mass represents a cyst, see note for details. (5) Lung nodule: Current visit: No Status: Acute 1.8 cm left lingular nodule noted on CT. Case discussed with Hematology/Oncology as above. Continues with cough, ? related to bronchospasm. ebulizer treatments provide relief from cough, add symbicort inhaler. Continue PRN antitussives. Will need follow up as an outpatient. (6) Cardiomyopathy: Current visit: No Status: Acute Presumed to be stress related in the setting of multiple losses over the past 15 years. Most recent echocardiogram in 08/2018 showed LVEF of 40-45%. Tolerating IV fluids. Monitor fluid status closely with daily weights and strict intake and output. (7) DVT prophylaxis: Current visit: No Status: Acute Subcutaneous heparin. (8) Discharge planning issues: Current visit: No Status: Acute She is a FULL code. High concern for multiple myeloma vs metastatic disease. Her case was previously discussed with hematology/oncology, she will need to follow up with heme/onc, as outpatient if she is stable. This case was discussed with Dr. Beatty who is in agreement. Subjective Interval history since last seen: Mrs. Guevara reports improvement in her cough since she started taking nebulizer treatments. She continues to report that her only complaint is her cough, it is harsh, barking and nonproductive. She is tolerating the IV fluids, she denies any shortness of breath, change in her cough, sputum production or wheezing. No chest pain/pressure, palpitations, no edema. She is eating and drinking, she denies dizziness, nausea, vomiting or selene rrhea. Exam Narrative Exam Narrative: General: Sitting up in the chair, alert and oriented x3, ple asant and cooperative, in no acute distress. HEENT: Normocephalic, atraumatic, pupils equal round, extraocular movements intact, mucous membranes moist. Neck: Supple, no JVD, no lymphadenopathy. Respiratory: Respirations even and unlabored, lung sounds clear to auscultation throughout. Speaks in complete sentences with no shortness of breath. Harsh, barking cough noted. Cardiovascular: Heart has regular rate and rhythm, no murmur appreciated. Gastrointestinal: +bowel sounds, soft, nontender on palpation, no masses appreciated. Extremities: no clubbing, cyanosis or edema. Pedal pulses palpable bilaterally. Objective Objective Clinical Data: Abnormal lab results 12/24/18 12/24/18 12/27/18 Range/Units 10:32 10:32 06:55 RBC (4.00-5.20) m/cumm Hgb (12.0-15.5) g/dL Hct (36.0-46.0) % MCHC (32.0-36.0) g/dL Absolute Lymphocytes (1.2-3.4) k/cumm Absolute Monocytes (0.11-0.7) k/cumm Carbon Dioxide 20.2 L (21.0-32.0) mmol/L Anion Gap 11.8 H (3-11) mmol/L BUN 59 H (7-18) mg/dL Creatinine 4.34 H* (0.55-1.02) mg/dL Glucose 102 H (70-100) mg/dL Calcium 10.7 H (8.5-10.1) mg/dL Albumin % (PEP) 51.4 L (55.8-66.1) % Ekkbn-3-Sdftmzaok (%) 5.9 H (2.9-4.9) % Xpau-4-Bbplfmtfcbipa 15.70 H mcg/mL Gamma Globulins (%) 21.6 H (11.1-18.8) % 12/27/18 Range/Units 06:55 RBC 3.24 L (4.00-5.20) m/cumm Hgb 9.2 L (12.0-15.5) g/dL Hct 29.1 L (36.0-46.0) % MCHC 31.6 L (32.0-36.0) g/dL Absolute Lymphocytes 0.64 L (1.2-3.4) k/cumm Absolute Monocytes 0.92 H (0.11-0.7) k/cumm Carbon Dioxide (21.0-32.0) mmol/L Anion Gap (3-11) mmol/L BUN (7-18) mg/dL Creatinine (0.55-1.02) mg/dL Glucose (70-100) mg/dL Calcium (8.5-10.1) mg/dL Albumin % (PEP) (55.8-66.1) % Urhhz-4-Gzqcchxvu (%) (2.9-4.9) % Lnlk-3-Pgmdjbdnxdlrx mcg/mL Gamma Globulins (%) (11.1-18.8) % Vital Signs Temperature 37.5 C 12/27/18 11:15 Temperature Source Tympanic 12/27/18 11:15 Pulse 79 12/27/18 11:15 Pulse Rhythm Regular 12/27/18 07:35 Pulse 70 12/24/18 14:00 Respiratory Rate 20 12/27/18 11:15 Respiratory Effort 12/27/18 07:35 Respiratory Depth Normal 12/27/18 07:35 Respiratory Pattern Normal 12/27/18 07:35 Blood Pressure 148/78 H 12/27/18 11:15 Blood Pressure Position Sitting 12/24/18 10:25 Pulse Oximetry 95 12/27/18 11:15 Oxygen Delivery Method Room Air 12/27/18 11:15 Oxygen Flow Rate 0 12/27/18 11:15 Pain Level 0 12/27/18 11:15 Comment 12/25/18 03:50 Intake & Output 12/26/18 12/27/18 12/27/18 23:59 11:59 23:59 Intake Total 1236.25 / 2596.25 2015 / 5 360 / 2375 Output Total 2200 / 3150 2625 / 2625 Balance -963.75 / -553.75 -610 / -250 360 / -250 Weight 85.4 kg Intake: IV 996.25 / 1995.25 975 / 975 Oral 240 / 600 1040 / 1400 360 / 1400 Output: Urine 2200 / 3150 2625 / 2625 Other: Urine Color Yellow Yellow Urine Appearance Clear Clear Urine Odor None None Comment hat in toilet Stool Size Large Stool Characteristics Soft Formed Brown Voiding Methods Toilet Toilet Laboratory Results WBC 7.59 k/cumm (4.4-10.8) 12/27/18 06:55 RBC 3.24 m/cumm (4.00-5.20) L 12/27/18 06:55 Hgb 9.2 g/dL (12.0-15.5) L 12/27/18 06:55 Hct 29.1 % (36.0-46.0) L 12/27/18 06:55 MCV 89.8 fL (80-95) 12/27/18 06:55 MCH 28.4 pg (27.0-33.0) 12/27/18 06:55 MCHC 31.6 g/dL (32.0-36.0) L 12/27/18 06:55 RDW 13.0 % (11.7-14.6) 12/27/18 06:55 Plt Count 145 x1000/uL (130-400) 12/27/18 06:55 MPV 10.8 fL (8.0-11.0) 12/27/18 06:55 Immature Gran % 0.4 12/27/18 06:55 Neutrophils % 77.1 12/27/18 06:55 Lymphocytes % 8.4 12/27/18 06:55 Monocytes % 12.1 12/27/18 06:55 Eosinophils % 1.6 12/27/18 06:55 Basophils % 0.4 12/27/18 06:55 Absolute Neutrophils 5.85 k/cumm (1.2-6.7) 12/27/18 06:55 Absolute Lymphocytes 0.64 k/cumm (1.2-3.4) L 12/27/18 06:55 Absolute Monocytes 0.92 k/cumm (0.11-0.7) H 12/27/18 06:55 Absolute Eosinophils 0.12 k/cumm (0.0-0.7) 12/27/18 06:55 Absolute Basophils 0.03 k/cumm (0.0-0.2) 12/27/18 06:55 Differential Comment Rbc morph reviewed 12/25/18 06:26 RBC Morphology Normal 12/25/18 06:26 Sodium 137 mmol/L (136-145) 12/27/18 06:55 Potassium 3.9 mmol/L (3.5-5.1) 12/27/18 06:55 Chloride 105 mmol/L (98-107) 12/27/18 06:55 Carbon Dioxide 20.2 mmol/L (21.0-32.0) L 12/27/18 06:55 Anion Gap 11.8 mmol/L (3-11) H 12/27/18 06:55 BUN 59 mg/dL (7-18) H 12/27/18 06:55 Creatinine 4.34 mg/dL (0.55-1.02) H* 12/27/18 06:55 Estimated GFR/1.73 m2 10.26 (mL/min/1.73m2) 12/27/18 06:55 Glucose 102 mg/dL (70-100) H 12/27/18 06:55 Calcium 10.7 mg/dL (8.5-10.1) H 12/27/18 06:55 Ionized Calcium 1.58 mmol/L (1.12-1.32) H 12/24/18 11:04 Magnesium 2.1 mg/dL (1.8-2.4) 12/25/18 06:26 Total Bilirubin 0.6 mg/dL (0.2-1.0) 12/25/18 06:26 Conjugated Bilirubin 0.10 mg/dL (0.00-0.20) 12/25/18 06:26 AST 20 U/L (15-37) 12/25/18 06:26 ALT 18 U/L (12-78) 12/25/18 06:26 Alkaline Phosphatase 79 U/L (46-116) 12/25/18 06:26 Lactate Dehydrogenase 180 U/L (81-234) 12/24/18 10:32 Total Protein 7.2 g/dL (6.4-8.2) 12/25/18 06:26 Total Protein (PEP) 7.4 g/dl (6.3-8.2) 12/24/18 10:32 Albumin 3.0 g/dL (3.4-5.0) L 12/25/18 06:26 Albumin % (PEP) 51.4 % (55.8-66.1) L 12/24/18 10:32 Vahlc-2-Vqrobxqtv (%) 5.9 % (2.9-4.9) H 12/24/18 10:32 Lvjvh-1-Lbwlfvzhy (%) 9.9 % (7.1-11.8) 12/24/18 10:32 Beta Globulins (%) 11.2 % (8.4-13.1) 12/24/18 10:32 Llgb-8-Dortngdpmguiw 15.70 mcg/mL H 12/24/18 10:32 Gamma Globulins (%) 21.6 % (11.1-18.8) H 12/24/18 10:32 M-Logan % Not Applicable 12/24/18 10:32 PEP Comment See comment 12/24/18 10:32 CA 125 Antigen 11 U/mL (0-30) 12/26/18 06:55 Urine Color Yellow (Yellow) 12/24/18 12:20 Urine Clarity Clear 12/24/18 12:20 Urine pH 7.0 (5-8) 12/24/18 12:20 Ur Specific [place] 1.015 (1.005-1.025) 12/24/18 12:20 Urine Protein 100 mg/dL (Negative) H 12/24/18 12:20 Urine Ketones Negative mg/dL (Negative) 12/24/18 12:20 Urine Blood Trace-lysed (Negative) H 12/24/18 12:20 Urine Nitrite Negative (Negative) 12/24/18 12:20 Urine Bilirubin Negative (Negative) 12/24/18 12:20 Urine Urobilinogen 0.2 EU/dL (Up TO 0.2) 12/24/18 12:20 Ur Leukocyte Esterase Small (Negative) H 12/24/18 12:20 Urine RBC 3-5 (0-2) H 12/24/18 12:20 Urine WBC 5-10 HPF (0-5) 12/24/18 12:20 Ur Epithelial Cells Many HPF (Negative) 12/24/18 12:20 Urine Crystals Moderate amorphous HPF (Negative) 12/24/18 12:20 Urine Bacteria Moderate HPF (Negative) 12/24/18 12:20 Urine Casts 0-2 coarse granular LPF (Negative) 12/24/18 12:20 Urine Mucus Negative (Negative) 12/24/18 12:20 Urine Other Few renal (Negative) 12/24/18 12:20 Ur Culture Indicated? No/sq. contamination 12/24/18 12:20 Ur Random Albumin Cancelled 12/24/18 12:34 U Random Total Protein Cancelled 12/24/18 12:34 Urine Glucose Negative mg/dL (Negative) 12/24/18 12:20 Ur Protein 24 Hr Calc Cancelled 12/24/18 12:34 Urine Globulin Cancelled 12/24/18 12:34 Urine Random PEP Note Cancelled 12/24/18 12:34 Urine Immunofixation Cancelled 12/24/18 12:34 Free [place] LC, Quant 10.15 mg/dL (0.33-1.94) H 12/24/18 10:32 Free Lambda LC, Quant 5.14 mg/dL (0.57-2.63) H 12/24/18 10:32 Free [place]/Lambda Ratio 1.97 (0.26-1.65) H 12/24/18 10:32
--- NOTE | 2018-12-27 16:38 | PDOC.CMPRO ---
- If Service Date Differs Date of service: 12/27/18 Time of Service: 16:38 Care Management Progress Note S/O: Jen is sitting up in her chair, receptive to discussion when this appeals writer visits. Jen continues to require IV fluids at this time due to her elevated Creatinine. TOYIN Hagen, requested that CM make a heme/onc F/U with Dr. Lyn at [facility] [place]. CM contacted Kassi Berg/Onc [facility] [place], whom states that Jen would require a biopsy before she has an appointment with kassi/onc, and that this would be done with thoracic surgery. CM notified TOYIN Hagen, of the above, and faxed US results to Kassi Berg/[facility], ([phone]) A: 63 y/o female admitted 12/24/18 for ENA P: Jen will return home with no anticipated services once medically cleared. She will F/U with PCP ? Heme/Onc and plan of care as prescribed. Friend to transport when ready.
[2018-12-27] MEDS: Albuterol/Ipratropium 3 ML UPD VIAL UPD (16:45)
--- NOTE | 2018-12-27 16:50 | CMPROGNOTE_ITS ---
- If Service Date Differs Date of service: 12/27/18 Time of Service: 16:38 Care Management Progress Note S/O: Jen is sitting up in her chair, receptive to discussion when this manual writer visits. Jen continues to require IV fluids at this time due to her elevated Creatinine. TOYIN Hagen, requested that CM make a heme/[place]c F/[place]. [place] [facility] [place] CM contacted Kassi Berg/Onc [facility], whom states that Jen would require a biopsy before she has an appointment with kassi/onc, and that t his would be done with thoracic surgery. CM notified TOYIN Hagen, of the above, and faxed US results to Kassi Berg/[facility], ([phone]) A: 63 y/o female admitted 12/24/18 for ENA P: Jen will return home with no anticipated services once medically cleared. She will F/U with PCP ? Heme/Onc and plan of care as prescribed. Friend to transport when ready.
[2018-12-27] MEDS: Budesonide/Formoterol 160/4.5 6 GM 60 PUFF INH IH (21:10)
[2018-12-27] MEDS: Normal Saline 1,000 ML 80 ML IV (23:02)
[2018-12-28] VITALS (10 sets, daily range): BP systolic 101–164; BP diastolic 62–80; PULSE 74–89; RESP 18–20; TEMP 36.8–37.9; O2SAT 94–97
[2018-12-28] MEDS: guaiFENesin/D-METHORPHAN HB 5 ML CUP 10 ML PO ×2 (03:17→15:58)
[2018-12-28] MEDS: Heparin 5,000 UNITS/ML VIAL 5000 UNITS SC ×3 (06:54→21:16)
[2018-12-28 07:30] LABS: HCT 27.8 % (36.0-46.0); HGB 8.8 g/dL (12.0-15.5); Mean Corp. HGB Concentration 31.7 g/dL (32.0-36.0); Mean Corpuscular Hemoglobin 28.4 pg (27.0-33.0); Mean Corpuscular Volume 89.7 fL (80-95); Mean Platelet Volume 11.2 fL (8.0-11.0); Platelet Count 146 x1000/uL (130-400); White Blood Cell Count 7.16 k/cumm (4.4-10.8)
[2018-12-28 07:43] LABS: Anion Gap 15.4 mmol/L (3-11); BUN 56 mg/dL (7-18); CO2 18.6 mmol/L (21.0-32.0); Calcium 10.7 mg/dL (8.5-10.1); Chloride 105 mmol/L (98-107); Estimated GFR 11.08 (mL/min/1.73m2); Glucose 118 mg/dL (70-100); Potassium 3.6 mmol/L (3.5-5.1); Sodium 139 mmol/L (136-145)
[2018-12-28 07:53] LABS: CREATININE 4.06 mg/dL (0.55-1.02)
[2018-12-28] MEDS: Metoprolol CR 100 MG TABCR PO (09:03)
[2018-12-28] MEDS: Budesonide/Formoterol 160/4.5 6 GM 60 PUFF INH IH ×2 (09:31→19:19)
[2018-12-28 11:06] LABS: Magnesium 1.9 mg/dL (1.8-2.4)
[2018-12-28] MEDS: Normal Saline 1,000 ML 80 ML IV ×2 (11:16→23:45)
--- NOTE | 2018-12-28 14:36 | W.PM.PROGNOT ---
Date of Service Date of service: 12/28/18 Time of Service: 15:04 Assessment and Plan (1) Acute renal failure: Start date: 12/28/18 Start time: 14:36 Current visit: Yes Status: Acute Mild improvement again today. Creatinine improved to 4.06. Continue to cautiously hydrate with IV fluids, avoid nephrotoxic medications. Spoke with Hemetology/Oncology at [facility] Dr. Lyn today 12/28. They agree to discharging patient home with monitoring creatinine and having patient follow up on Sunday at IR for biopsy. Kidney function most likely the result of an underlying process and [facility] feels she would benefit from biposy for further treatment of underlying process. Creatinine has not markedly improved in 4 days with light hydration. We will keep overnight recheck bmp in am and discharge with follow up to IR. Qualifiers: Acute renal failure type: unspecified Qualified Code(s): N17.9 - Acute kidney failure, unspecified (2) Hypercalcemia: Start date: 12/28/18 Start time: 14:39 Current visit: Yes Status: Acute Improving but still elevated. (3) Lytic lesion of bone on x-ray: Start date: 12/28/18 Start time: 14:45 Current visit: No Status: Acute Noted on CT. With concern for myeloma versus metastatic disease. Dr. Lyn called today regarding send out labs and findings. They would like the patient to have a biopsy as soon as possible so they can start to follow up with her. CM to set up for as early as possible (4) Adnexal mass: Start date: 12/28/18 Start time: 14:54 Current visit: Yes Status: Acute Pelvic ultrasound shows complex cystic mass. SENIOR DATA SCIENTIST consulted and feels this mass represents a cyst, see note for details. (5) Lung nodule: Start date: 12/28/18 Current visit: No Status: Acute 1.8 cm left lingular nodule noted on CT. Case discussed with Hematology/Oncology as above. Cough has improved. Continue nebs, IHS, (6) Cardiomyopathy: Start date: 12/28/18 Start time: 14:55 Current visit: No Status: Acute Presumed to be stress related in the setting of multiple losses over the past 15 years. Most recent echocardiogram in 08/2018 showed LVEF of 40-45%. Continue light IVF overnight, dc in the am. (7) DVT prophylaxis: Start date: 12/28/18 Start time: 14:56 Current visit: No Status: Acute Subcutaneous heparin. (8) Discharge planning issues: Start date: 12/28/18 Start time: 14:57 Current visit: No Status: Acute She is a FULL code. High concern for multiple myeloma vs metastatic disease. Her case was previously discussed with hematology/oncology, she will need to follow up with heme/onc. This case was discussed with Dr. Beatty who is in agreement. Subjective Patient reports: feels better Interval history since last seen: Mrs. Guevara is feeling good today. She is moving around her room. Asking about her labs. She denies pain, nausea, vomiting, diarrhea, chest pain, shortness of breath. Her creatinine is mildly improved at 4.06 today. She has been tolerating IVF, no symptoms of fluid overload. Spoke with [facility] Dr. Lyn today, she feels that the patient would benefit from biopsy with IR on Sunday. Ms. Guevara's kidney function could be from underlying disease process. The plan will be to d/c home tomorrow with follow up IR appointment for biopsy and follow up with [facility]. Exam Const General: cooperative, healthy appearing and no acute distress [facility] Head: normal to inspection Eyes General: appearance normal, both eyes and all related structures Neck Neck: normal visual inspection Chest Chest: normal inspection of the chest Resp Effort & Inspection: normal respiratory effort Cardio Jugular venous pressure: no JVD Rate: regular rate Rhythm: regular rhythm Heart Sounds: gallop Neuro General: alert, awake and oriented x3 Extrem General: normal to inspection Objective Objective Clinical Data: Abnormal lab results 12/28/18 12/28/18 Range/Units 06:25 06:25 RBC 3.10 L (4.00-5.20) m/cumm Hgb 8.8 L (12.0-15.5) g/dL Hct 27.8 L (36.0-46.0) % MCHC 31.7 L (32.0-36.0) g/dL MPV 11.2 H (8.0-11.0) fL Carbon Dioxide 18.6 L (21.0-32.0) mmol/L Anion Gap 15.4 H (3-11) mmol/L BUN 56 H (7-18) mg/dL Creatinine 4.06 H* (0.55-1.02) mg/dL Glucose 118 H (70-100) mg/dL Calcium 10.7 H (8.5-10.1) mg/dL Vital Signs Temperature 36.9 C 12/28/18 11:34 Temperature Source Tympanic 12/28/18 11:34 Pulse 81 12/28/18 11:34 Pulse Rhythm Regular 12/28/18 00:30 Pulse 70 12/24/18 14:00 Respiratory Rate 18 12/28/18 11:34 Respiratory Effort Non-Labored 12/28/18 00:30 Respiratory Depth Normal 12/28/18 00:30 Respiratory Pattern Normal 12/28/18 00:30 Blood Pressure 164/79 H 12/28/18 11:34 Blood Pressure Position Sitting 12/24/18 10:25 Pulse Oximetry 96 12/28/18 11:34 Oxygen Delivery Method Room Air 12/28/18 11:34 Oxygen Flow Rate 0 12/28/18 11:34 Pain Level 0 12/28/18 11:34 Comment 12/28/18 03:10 Intake & Output 12/27/18 12/28/18 12/28/18 23:59 11:59 23:59 Intake Total 1600.0 / 3615.0 2138.667 / 2378.667 240 / 2378.667 Output Total 1750 / 4375 3750 / 4400 650 / 4400 Balance -150.0 / -760.0 -1611.333 / -2021.333 -410 / -2021.333 Weight 85.1 kg Intake: IV 1000.0 / 1975.0 978.667 / 978.667 Oral 600 / 1640 1160 / 1400 240 / 1400 Output: Urine 1750 / 4375 3750 / 4400 650 / 4400 Other: Urine Color Yellow Yellow Pale Yellow Urine Appearance Clear Clear Cloudy Urine Odor Normal Stool Occult Blood Negative Negative Stool Size Smear Small Stool Characteristics Soft Formed Brown Black Voiding Methods Toilet Toilet Toilet Laboratory Results WBC 7.16 k/cumm (4.4-10.8) 12/28/18 06:25 RBC 3.10 m/cumm (4.00-5.20) L 12/28/18 06:25 Hgb 8.8 g/dL (12.0-15.5) L 12/28/18 06:25 Hct 27.8 % (36.0-46.0) L 12/28/18 06:25 MCV 89.7 fL (80-95) 12/28/18 06:25 MCH 28.4 pg (27.0-33.0) 12/28/18 06:25 MCHC 31.7 g/dL (32.0-36.0) L 12/28/18 06:25 RDW 13.0 % (11.7-14.6) 12/28/18 06:25 Plt Count 146 x1000/uL (130-400) 12/28/18 06:25 MPV 11.2 fL (8.0-11.0) H 12/28/18 06:25 Immature Gran % 0.4 12/27/18 06:55 Neutrophils % 77.1 12/27/18 06:55 Lymphocytes % 8.4 12/27/18 06:55 Monocytes % 12.1 12/27/18 06:55 Eosinophils % 1.6 12/27/18 06:55 Basophils % 0.4 12/27/18 06:55 Absolute Neutrophils 5.85 k/cumm (1.2-6.7) 12/27/18 06:55 Absolute Lymphocytes 0.64 k/cumm (1.2-3.4) L 12/27/18 06:55 Absolute Monocytes 0.92 k/cumm (0.11-0.7) H 12/27/18 06:55 Absolute Eosinophils 0.12 k/cumm (0.0-0.7) 12/27/18 06:55 Absolute Basophils 0.03 k/cumm (0.0-0.2) 12/27/18 06:55 Differential Comment Rbc morph reviewed 12/25/18 06:26 RBC Morphology Normal 12/25/18 06:26 Sodium 139 mmol/L (136-145) 12/28/18 06:25 Potassium 3.6 mmol/L (3.5-5.1) 12/28/18 06:25 Chloride 105 mmol/L (98-107) 12/28/18 06:25 Carbon Dioxide 18.6 mmol/L (21.0-32.0) L 12/28/18 06:25 Anion Gap 15.4 mmol/L (3-11) H 12/28/18 06:25 BUN 56 mg/dL (7-18) H 12/28/18 06:25 Creatinine 4.06 mg/dL (0.55-1.02) H* 12/28/18 06:25 Estimated GFR/1.73 m2 11.08 (mL/min/1.73m2) 12/28/18 06:25 Glucose 118 mg/dL (70-100) H 12/28/18 06:25 Calcium 10.7 mg/dL (8.5-10.1) H 12/28/18 06:25 Ionized Calcium 1.58 mmol/L (1.12-1.32) H 12/24/18 11:04 Magnesium 1.9 mg/dL (1.8-2.4) 12/28/18 06:25 Total Bilirubin 0.6 mg/dL (0.2-1.0) 12/25/18 06:26 Conjugated Bilirubin 0.10 mg/dL (0.00-0.20) 12/25/18 06:26 AST 20 U/L (15-37) 12/25/18 06:26 ALT 18 U/L (12-78) 12/25/18 06:26 Alkaline Phosphatase 79 U/L (46-116) 12/25/18 06:26 Lactate Dehydrogenase 180 U/L (81-234) 12/24/18 10:32 Total Protein 7.2 g/dL (6.4-8.2) 12/25/18 06:26 Total Protein (PEP) 7.4 g/dl (6.3-8.2) 12/24/18 10:32 Albumin 3.0 g/dL (3.4-5.0) L 12/25/18 06:26 Albumin % (PEP) 51.4 % (55.8-66.1) L 12/24/18 10:32 Gpfno-7-Gkuawakjw (%) 5.9 % (2.9-4.9) H 12/24/18 10:32 Afwng-0-Xcwpjmyqs (%) 9.9 % (7.1-11.8) 12/24/18 10:32 Beta Globulins (%) 11.2 % (8.4-13.1) 12/24/18 10:32 Tzaq-4-Tomnviiwmoydz 15.70 mcg/mL H 12/24/18 10:32 Gamma Globulins (%) 21.6 % (11.1-18.8) H 12/24/18 10:32 M-Logna % Not Applicable 12/24/18 10:32 PEP Comment See comment 12/24/18 10:32 CA 125 Antigen 11 U/mL (0-30) 12/26/18 06:55 Urine Color Yellow (Yellow) 12/24/18 12:20 Urine Clarity Clear 12/24/18 12:20 Urine pH 7.0 (5-8) 12/24/18 12:20 Ur Specific [place] 1.015 (1.005-1.025) 12/24/18 12:20 Urine Protein 100 mg/dL (Negative) H 12/24/18 12:20 Urine Ketones Negative mg/dL (Negative) 12/24/18 12:20 Urine Blood Trace-lysed (Negative) H 12/24/18 12:20 Urine Nitrite Negative (Negative) 12/24/18 12:20 Urine Bilirubin Negative (Negative) 12/24/18 12:20 Urine Urobilinogen 0.2 EU/dL (Up TO 0.2) 12/24/18 12:20 Ur Leukocyte Esterase Small (Negative) H 12/24/18 12:20 Urine RBC 3-5 (0-2) H 12/24/18 12:20 Urine WBC 5-10 HPF (0-5) 12/24/18 12:20 Ur Epithelial Cells Many HPF (Negative) 12/24/18 12:20 Urine Crystals Moderate amorphous HPF (Negative) 12/24/18 12:20 Urine Bacteria Moderate HPF (Negative) 12/24/18 12:20 Urine Casts 0-2 coarse granular LPF (Negative) 12/24/18 12:20 Urine Mucus Negative (Negative) 12/24/18 12:20 Urine Other Few renal (Negative) 12/24/18 12:20 Ur Culture Indicated? No/sq. contamination 12/24/18 12:20 Ur Random Albumin Cancelled 12/24/18 12:34 U Random Total Protein Cancelled 12/24/18 12:34 Urine Glucose Negative mg/dL (Negative) 12/24/18 12:20 Ur Protein 24 Hr Calc Cancelled 12/24/18 12:34 Urine Globulin Cancelled 12/24/18 12:34 Urine Random PEP Note Cancelled 12/24/18 12:34 Urine Immunofixation Cancelled 12/24/18 12:34 Free [place] LC, Quant 10.15 mg/dL (0.33-1.94) H 12/24/18 10:32 Free Lambda LC, Quant 5.14 mg/dL (0.57-2.63) H 12/24/18 10:32 Free [place]/Lambda Ratio 1.97 (0.26-1.65) H 12/24/18 10:32
--- NOTE | 2018-12-28 14:42 | PGE_ITS ---
Date of Service Date of service: 12/28/18 Time of Service: 15:04 Assessment and Plan (1) Acute renal failure: Start date: 12/28/18 Start time: 14:36 Current visit: Yes Status: Acute Mild improvement again today. Creatinine improved to 4.06. Continue to cautiously hydrate with IV fluids, avoid nephrotoxic medications. Spoke with Hemetology/Oncology at [facility] Dr. Lyn today 12/28. They agree to discharging patient home with monitoring creatinine and having patient follow up on Sunday at IR for biopsy. Kidney function most likely the result of an underlying process and [facility] feels she would benefit from biposy for further treatment of underlying process. Creatinine has not markedly improved in 4 days with light hydration. We will keep overnight recheck bmp in am and discharge with follow up to IR. Qualifiers: Acute renal failure type: unspecified Qualified Code(s): N17.9 - Acute kidney failure, unspecified (2) Hypercalcemia: Start date: 12/28/18 Start time: 14:39 Current visit: Yes Status: Acute Improving but still elevated. (3) Lytic lesion of bone on x-ray: Start date: 12/28/18 Start time: 14:45 Current visit: No Status: Acute Noted on CT. With concern for myeloma versus metastatic disease. Dr. Lyn called today regarding send out labs and findings. They would like the patient to have a biopsy as soon as possible so they can start to follow up with her. CM to set up for as early as possible (4) Adnexal mass: Start date: 12/28/18 Start time: 14:54 Current visit: Yes Status: Acute Pelvic ultrasound shows complex cystic mass. CRAFT MANAGER consulted and feels this mass represents a cyst, see note for details. (5) Lung nodule: Start date: 12/28/18 Current visit: No Status: Acute 1.8 cm left lingular nodule noted on CT. Case discussed with Hematology/Oncology as above. Cough has improved. Continue nebs, IHS, (6) Cardiomyopathy: Start date: 12/28/18 Start time: 14:55 Current visit: No Status: Acute Presumed to be stress related in the setting of multiple losses over the past 15 years. Most recent echocardiogram in 08/2018 showed LVEF of 40-45%. Continue light IVF overnight, dc in the am. (7) DVT prophylaxis: Start date: 12/28/18 Start time: 14:56 Current visit: No Status: Acute Subcutaneous heparin. (8) Discharge planning issues: Start date: 12/28/18 Start time: 14:57 Current visit: No Status: Acute She is a FULL code. High concern for multiple myeloma vs metastatic disease. Her case was previously discussed with hematology/oncology, she will need to follow up with heme/onc. This case was discussed with Dr. Beatty who is in agreement. Subjective Patient reports: feels better Interval history since last seen: Mrs. Guevara is feeling good today. She is moving around her room. Asking about her labs. She denies pain, nausea, vomiting, diarrhea, chest pain, shortness of breath. Her creatinine is mildly improved at 4.06 today. She has been tolerating IVF, no symptoms of fluid overload. Spoke with [facility] Dr. Lyn today, she feels that the patient would benefit from biopsy with IR on Sunday. Ms. Guevara's kidney function could be from underlying disease process. The plan will be to d/c home tomorrow with follow up IR appointment for biopsy and follow up with [facility]. Exam Const General: cooperative, healthy appearing and no acute distress [facility] Head: normal to inspection Eyes General: appearance normal, both eyes and all related structures Neck Neck: normal visual inspection Chest Chest: normal inspection of the chest Resp Effort & Inspection: normal respiratory effort Cardio Jugular venous pressure: no JVD Rate: regular rate Rhythm: regular rhythm Heart Sounds: gallop Neuro General: alert, awake and oriented x3 Extrem General: normal to inspection Objective Objective Clinical Data: Abnormal lab results 12/28/18 12/28/18 Range/Units 06:25 06:25 RBC 3.10 L (4.00-5.20) m/cumm Hgb 8.8 L (12.0-15.5) g/dL Hct 27.8 L (36.0-46.0) % MCHC 31.7 L (32.0-36.0) g/dL MPV 11.2 H (8.0-11.0) fL Carbon Dioxide 18.6 L (21.0-32.0) mmol/L Anion Gap 15.4 H (3-11) mmol/L BUN 56 H (7-18) mg/dL Creatinine 4.06 H* (0.55-1.02) mg/dL Glucose 118 H (70-100) mg/dL Calcium 10.7 H (8.5-10.1) mg/dL Vital Signs Temperature 36.9 C 12/28/18 11:34 Temperature Source Tympanic 12/28/18 11:34 Pulse 81 12/28/18 11:34 Pulse Rhythm Regular 12/28/18 00:30 Pulse 70 12/24/18 14:00 Respiratory Rate 18 12/28/18 11:34 Respiratory Effort Non-Labored 12/28/18 00:30 Respiratory Depth Normal 12/28/18 00:30 Respiratory Pattern Normal 12/28/18 00:30 Blood Pressure 164/79 H 12/28/18 11:34 Blood Pressure Position Sitting 12/24/18 10:25 Pulse Oximetry 96 12/28/18 11:34 Oxygen Delivery Method Room Air 12/28/18 11:34 Oxygen Flow Rate 0 12/28/18 11:34 Pain Level 0 12/28/18 11:34 Comment 12/28/18 03:10 Intake & Output 12/27/18 12/28/18 12/28/18 23:59 11:59 23:59 Intake Total 1600.0 / 3615.0 2138.667 / 2378.667 240 / 2378.667 Output Total 1750 / 4375 3750 / 4400 650 / 4400 Balance -150.0 / -760.0 -1611.333 / -2021.333 -410 / -2021.333 Weight 85.1 kg Intake: IV 1000.0 / 1975.0 978.667 / 978.667 Oral 600 / 1640 1160 / 1400 240 / 1400 Output: Urine 1750 / 4375 3750 / 4400 650 / 4400 Other: Urine Color Yellow Yellow Pale Yellow Urine Appearance Clear Clear Cloudy Urine Odor Normal Stool Occult Blood Negative Negative Stool Size Smear Small Stool Characteristics Soft Formed Brown Black Voiding Methods Toilet Toilet Toilet Laboratory Results WBC 7.16 k/cumm (4.4-10.8) 12/28/18 06:25 RBC 3.10 m/cumm (4.00-5.20) L 12/28/18 06:25 Hgb 8.8 g/dL (12.0-15.5) L 12/28/18 06:25 Hct 27.8 % (36.0-46.0) L 12/28/18 06:25 MCV 89.7 fL (80-95) 12/28/18 06:25 MCH 28.4 pg (27.0-33.0) 12/28/18 06:25 MCHC 31.7 g/dL (32.0-36.0) L 12/28/18 06:25 RDW 13.0 % (11.7-14.6) 12/28/18 06:25 Plt Count 146 x1000/uL (130-400) 12/28/18 06:25 MPV 11.2 fL (8.0-11.0) H 12/28/18 06:25 Immature Gran % 0.4 12/27/18 06:55 Neutrophils % 77.1 12/27/18 06:55 Lymphocytes % 8.4 12/27/18 06:55 Monocytes % 12.1 12/27/18 06:55 Eosinophils % 1.6 12/27/18 06:55 Basophils % 0.4 12/27/18 06:55 Absolute Neutrophils 5.85 k/cumm (1.2-6.7) 12/27/18 06:55 Absolute Lymphocytes 0.64 k/cumm (1.2-3.4) L 12/27/18 06:55 Absolute Monocytes 0.92 k/cumm (0.11-0.7) H 12/27/18 06:55 Absolute Eosinophils 0.12 k/cumm (0.0-0.7) 12/27/18 06:55 Absolute Basophils 0.03 k/cumm (0.0-0.2) 12/27/18 06:55 Differential Comment Rbc morph reviewed 12/25/18 06:26 RBC Morphology Normal 12/25/18 06:26 Sodium 139 mmol/L (136-145) 12/28/18 06:25 Potassium 3.6 mmol/L (3.5-5.1) 12/28/18 06:25 Chloride 105 mmol/L (98-107) 12/28/18 06:25 Carbon Dioxide 18.6 mmol/L (21.0-32.0) L 12/28/18 06:25 Anion Gap 15.4 mmol/L (3-11) H 12/28/18 06:25 BUN 56 mg/dL (7-18) H 12/28/18 06:25 Creatinine 4.06 mg/dL (0.55-1.02) H* 12/28/18 06:25 Estimated GFR/1.73 m2 11.08 (mL/min/1.73m2) 12/28/18 06:25 Glucose 118 mg/dL (70-100) H 12/28/18 06:25 Calcium 10.7 mg/dL (8.5-10.1) H 12/28/18 06:25 Ionized Calcium 1.58 mmol/L (1.12-1.32) H 12/24/18 11:04 Magnesium 1.9 mg/dL (1.8-2.4) 12/28/18 06:25 Total Bilirubin 0.6 mg/dL (0.2-1.0) 12/25/18 06:26 Conjugated Bilirubin 0.10 mg/dL (0.00-0.20) 12/25/18 06:26 AST 20 U/L (15-37) 12/25/18 06:26 ALT 18 U/L (12-78) 12/25/18 06:26 Alkaline Phosphatase 79 U/L (46-116) 12/25/18 06:26 Lactate Dehydrogenase 180 U/L (81-234) 12/24/18 10:32 Total Protein 7.2 g/dL (6.4-8.2) 12/25/18 06:26 Total Protein (PEP) 7.4 g/dl (6.3-8.2) 12/24/18 10:32 Albumin 3.0 g/dL (3.4-5.0) L 12/25/18 06:26 Albumin % (PEP) 51.4 % (55.8-66.1) L 12/24/18 10:32 Shuan-2-Anlbsayzl (%) 5.9 % (2.9-4.9) H 12/24/18 10:32 Nwdyo-8-Anxksqixb (%) 9.9 % (7.1-11.8) 12/24/18 10:32 Beta Globulins (%) 11.2 % (8.4-13.1) 12/24/18 10:32 Oxkh-7-Mkicamgyxdjjf 15.70 mcg/mL H 12/24/18 10:32 Gamma Globulins (%) 21.6 % (11.1-18.8) H 12/24/18 10:32 M-Logan % Not Applicable 12/24/18 10:32 PEP Comment See comment 12/24/18 10:32 CA 125 Antigen 11 U/mL (0-30) 12/26/18 06:55 Urine Color Yellow (Yellow) 12/24/18 12:20 Urine Clarity Clear 12/24/18 12:20 Urine pH 7.0 (5-8) 12/24/18 12:20 Ur Specific [place] 1.015 (1.005-1.025) 12/24/18 12:20 Urine Protein 100 mg/dL (Negative) H 12/24/18 12:20 Urine Ketones Negative mg/dL (Negative) 12/24/18 12:20 Urine Blood Trace-lysed (Negative) H 12/24/18 12:20 Urine Nitrite Negative (Negative) 12/24/18 12:20 Urine Bilirubin Negative (Negative) 12/24/18 12:20 Urine Urobilinogen 0.2 EU/dL (Up TO 0.2) 12/24/18 12:20 Ur Leukocyte Esterase Small (Negative) H 12/24/18 12:20 Urine RBC 3-5 (0-2) H 12/24/18 12:20 Urine WBC 5-10 HPF (0-5) 12/24/18 12:20 Ur Epithelial Cells Many HPF (Negative) 12/24/18 12:20 Urine Crystals Moderate amorphous HPF (Negative) 12/24/18 12:20 Urine Bacteria Moderate HPF (Negative) 12/24/18 12:20 Urine Casts 0-2 coarse granular LPF (Negative) 12/24/18 12:20 Urine Mucus Negative (Negative) 12/24/18 12:20 Urine Other Few renal (Negative) 12/24/18 12:20 Ur Culture Indicated? No/sq. contamination 12/24/18 12:20 Ur Random Albumin Cancelled 12/24/18 12:34 U Random Total Protein Cancelled 12/24/18 12:34 Urine Glucose Negative mg/dL (Negative) 12/24/18 12:20 Ur Protein 24 Hr Calc Cancelled 12/24/18 12:34 Urine Globulin Cancelled 12/24/18 12:34 Urine Random PEP Note Cancelled 12/24/18 12:34 Urine Immunofixation Cancelled 12/24/18 12:34 Free [place] LC, Quant 10.15 mg/dL (0.33-1.94) H 12/24/18 10:32 Free Lambda LC, Quant 5.14 mg/dL (0.57-2.63) H 12/24/18 10:32 Free [place]/Lambda Ratio 1.97 (0.26-1.65) H 12/24/18 10:32
--- NOTE | 2018-12-28 16:35 | PDOC.CMPRO ---
Care Management Progress Note S/O: Jen is sitting up in her chair visiting with a friend. Discussed the need to have a biopsy scheduled at [facility]. The results will be used to guide her treatment plan with the Oncologist going forward. She is agreeable to the plan and her friend is willing to drive her on Sunday if we can set up an appointment. CM faxed information for a heme/onc F/U with Dr. Lyn at [facility] on 12/27.They cannot schedule the appointment until the biopsy has been completed and it needs to be scheduled through thoracic surgery. US results faxed to [facility]/Onc, ([phone]) on 12/27. A: 63 y/o female admitted 12/24/18 for ENA P: Jen will return home with no anticipated services once medically cleared. She will have the biopsy scheduled at [facility] as an outpatient, F/U with PCP and request appointment with Heme/Onc. Possible discharge home 12/28. Friend to transport when ready.
--- NOTE | 2018-12-28 16:46 | CMPROGNOTE_ITS ---
Care Management Progress Note S/O: Jen is sitting up in her chair visiting with a friend. Discussed the need to have a biopsy scheduled at [facility]. The results will be used to guide her treatment plan with the Oncologist going forward. She is agreeable to the plan and her friend is willing to drive her on Sunday if we can set up an appointment. CM faxed information for a heme/onc F/U with Dr. Lyn at [facility] on 12/27.They cannot schedule the appointment until the biopsy has been completed and it needs to be scheduled through thoracic surgery. US results faxed to [facility]/Onc, ([phone]) on 12/27. A: 63 y/o female admitted 12/24/18 for ENA P: Jen will return home with no anticipated services once medically cleared. She will have the biopsy scheduled at [facility] as an outpatient, F/U with PCP and request appointment with Heme/Onc. Possible discharge home 12/28. Friend to transport when ready.
[2018-12-28] MEDS: Acetaminophen 325 MG TAB PO (21:16)
[2018-12-29] MEDS: guaiFENesin/D-METHORPHAN HB 5 ML CUP 10 ML PO ×2 (01:43→15:46)
[2018-12-29 04:10] VITALS: BP 151/81; PULSE 79; RESP 20; TEMP 36.7; O2SAT 96
[2018-12-29] MEDS: Normal Saline Flush 10 ML SYR IVP (04:15)
[2018-12-29] MEDS: Heparin 5,000 UNITS/ML VIAL 5000 UNITS SC ×3 (07:01→22:25)
[2018-12-29 07:28] VITALS: BP 147/78; PULSE 77; RESP 17; TEMP 36.6; O2SAT 95
[2018-12-29] MEDS: Budesonide/Formoterol 160/4.5 6 GM 60 PUFF INH IH ×2 (07:55→19:52)
[2018-12-29] MEDS: Metoprolol CR 100 MG TABCR PO (08:29)
[2018-12-29 08:39] LABS: Abs Immature Grans 0.03 k/cumm (0.0-0.09); Absolute Basophil Count 0.04 k/cumm (0.0-0.2); Absolute Eosinophil Count 0.18 k/cumm (0.0-0.7); Absolute Monocyte Count 0.81 k/cumm (0.11-0.7); Absolute Neutrophil Count 5.89 k/cumm (1.2-6.7); Basophils % 0.5; Eosinophils % 2.4; HCT 28.5 % (36.0-46.0); HGB 9.4 g/dL (12.0-15.5); Immature Grans % 0.4; Lymphocytes % 7.9; Mean Corpuscular Hemoglobin 29.5 pg (27.0-33.0); Mean Corpuscular Volume 89.3 fL (80-95); Mean Platelet Volume 10.9 fL (8.0-11.0); Monocytes % 10.7; Neutrophils % 78.1; Platelet Count 161 x1000/uL (130-400); RBC 3.19 m/cumm (4.00-5.20); RBC Distribution Width 13.2 % (11.7-14.6); White Blood Cell Count 7.55 k/cumm (4.4-10.8)
[2018-12-29 08:49] LABS: Anion Gap 12.4 mmol/L (3-11); BUN 50 mg/dL (7-18); CO2 20.6 mmol/L (21.0-32.0); Calcium 10.6 mg/dL (8.5-10.1); Chloride 105 mmol/L (98-107); Estimated GFR 13.15 (mL/min/1.73m2); Glucose 108 mg/dL (70-100); Magnesium 1.8 mg/dL (1.8-2.4); Potassium 3.6 mmol/L (3.5-5.1); Sodium 138 mmol/L (136-145)
[2018-12-29 11:10] VITALS: BP 151/75; PULSE 81; RESP 19; TEMP 36.8; O2SAT 94
[2018-12-29] MEDS: Magnesium Oxide 400 MG TAB PO (11:40)
[2018-12-29] MEDS: Potassium Chloride 20 MEQ TABCR 40 MEQ PO (11:41)
[2018-12-29] MEDS: Normal Saline 1,000 ML 80 ML IV ×2 (11:50→23:08)
--- NOTE | 2018-12-29 12:29 | W.PM.PROGNOT ---
Date of Service Date of service: 12/29/18 Time of Service: 13:03 Assessment and Plan (1) Acute renal failure: Start date: 12/29/18 Start time: 12:57 Current visit: Yes Status: Acute Mild improvement again today. Creatinine improved to 3.50. Continue to cautiously hydrate with IV fluids, avoid nephrotoxic medications. Spoke with Hemetology/Oncology at [facility] Dr. Lyn on 12/28. Kidney function most likely the result of an underlying process and [facility] feels she would benefit from biposy for further treatment of underlying process. Would like her to continue to receive IVF and improve renal function while we set up IR for biopsy. Discharge tomorrow possibly. Qualifiers: Acute renal failure type: unspecified Qualified Code(s): N17.9 - Acute kidney failure, unspecified (2) Hypercalcemia: Start date: 12/29/18 Start time: 12:59 Current visit: Yes Status: Acute Improving but still elevated at 10.6 (3) Lytic lesion of bone on x-ray: Start date: 12/29/18 Start time: 13:00 Current visit: No Status: Acute Noted on CT. With concern for myeloma versus metastatic disease. Follow up with IR for bone biopsy. will try to initiate tomorrow (4) Adnexal mass: Start date: 12/29/18 Start time: 13:01 Current visit: Yes Status: Acute Pelvic ultrasound shows complex cystic mass. [employer] SUPER[employer] consulted and feels this mass represents a cyst, see note for details. (5) Lung nodule: Start date: 12/29/18 Start time: 13:01 Current visit: No Status: Acute 1.8 cm left lingular nodule noted on CT. Case discussed with Hematology/Oncology as above. Cough has improved. Continue nebs, IHS, (6) Cardiomyopathy: Start date: 12/29/18 Start time: 13:01 Current visit: No Status: Acute Presumed to be stress related in the setting of multiple losses over the past 15 years. Most recent echocardiogram in 08/2018 showed LVEF of 40-45%. Continue light IVF overnight, dc in the am. (7) DVT prophylaxis: Start date: 12/29/18 Start time: 13:01 Current visit: No Status: Acute Subcutaneous heparin. (8) Discharge planning issues: Start date: 12/29/18 Start time: 13:01 Current visit: No Status: Acute She is a FULL code. High concern for multiple myeloma vs metastatic disease. Her case was previously discussed with hematology/oncology, she will need to follow up with heme/onc. Subjective Patient reports: feels better Interval history since last seen: Mrs. Guevara is feeling good today. She is sitting up in the chair. Asking about her labs. She denies pain, nausea, vomiting, diarrhea, chest pain, shortness of breath. Her creatinine is mildly improved at 3.50 today. She has been tolerating IVF, no symptoms of fluid overload continue light hydration to improve kidney function. Her calcium was 10.6 today. She would like to go home but agrees to staying tonight so IR can be set up for biopsy in the setting of unknown origin for acute kidney injury, cough x 4 months of unknown origin and CT revealing metastatic disease vs multiple myeloma. Exam Const General: cooperative, healthy appearing and no acute distress HENMT Head: normal to inspection Eyes General: appearance normal, both eyes and all related structures Neck Neck: normal visual inspection Chest Chest: normal inspection of the chest Resp Effort & Inspection: normal respiratory effort and cough Other: harsh nonproductive cough brought on by speaking, talking, tends to be seasonal Cardio Jugular venous pressure: no JVD Rate: regular rate Rhythm: regular rhythm Heart Sounds: gallop Neuro General: alert, awake and oriented x3 Extrem General: normal to inspection Objective Objective Clinical Data: Abnormal lab results 12/29/18 12/29/18 Range/Units 08:30 08:30 RBC 3.19 L (4.00-5.20) m/cumm Hgb 9.4 L (12.0-15.5) g/dL Hct 28.5 L (36.0-46.0) % Absolute Lymphocytes 0.60 L (1.2-3.4) k/cumm Absolute Monocytes 0.81 H (0.11-0.7) k/cumm Carbon Dioxide 20.6 L (21.0-32.0) mmol/L Anion Gap 12.4 H (3-11) mmol/L BUN 50 H (7-18) mg/dL Creatinine 3.50 H (0.55-1.02) mg/dL Glucose 108 H (70-100) mg/dL Calcium 10.6 H (8.5-10.1) mg/dL Vital Signs Temperature 36.8 C 12/29/18 11:10 Temperature Source Tympanic 12/29/18 11:10 Pulse 81 12/29/18 11:10 Pulse Rhythm Regular 12/29/18 08:31 Pulse 70 12/24/18 14:00 Respiratory Rate 19 12/29/18 11:10 Respiratory Effort Non-Labored 12/29/18 08:31 Respiratory Depth Normal 12/29/18 08:31 Respiratory Pattern Normal 12/29/18 08:31 Blood Pressure 151/75 H 12/29/18 11:10 Blood Pressure Position Sitting 12/24/18 10:25 Pulse Oximetry 94 L 12/29/18 11:10 Oxygen Delivery Method Room Air 12/29/18 11:10 Oxygen Flow Rate 0 12/29/18 11:10 Pain Level 0 12/29/18 11:10 Comment 12/29/18 04:10 Intake & Output 12/28/18 12/29/18 12/29/18 23:59 11:59 23:59 Intake Total 1478.667 / 3617.334 2836.667 / 2836.667 Output Total 1650 / 5400 2700 / 2700 Balance -171.333 / -1782.666 136.667 / 136.667 Weight 85 kg Intake: IV 998.667 / 1977.334 966.667 / 966.667 Oral 480 / 1640 1870 / 1870 Output: Urine 1650 / 5400 2700 / 2700 Other: Urine Color Yellow Yellow Urine Appearance Clear Clear Urine Odor None Normal Comment hat in toilet Stool Occult Blood Negative Negative Stool Size Small Moderate Stool Characteristics Soft Soft Brown Formed Brown Voiding Methods Toilet Toilet Laboratory Results WBC 7.55 k/cumm (4.4-10.8) 12/29/18 08:30 RBC 3.19 m/cumm (4.00-5.20) L 12/29/18 08:30 Hgb 9.4 g/dL (12.0-15.5) L 12/29/18 08:30 Hct 28.5 % (36.0-46.0) L 12/29/18 08:30 MCV 89.3 fL (80-95) 12/29/18 08:30 MCH 29.5 pg (27.0-33.0) 12/29/18 08:30 MCHC 33.0 g/dL (32.0-36.0) 12/29/18 08:30 RDW 13.2 % (11.7-14.6) 12/29/18 08:30 Plt Count 161 x1000/uL (130-400) 12/29/18 08:30 MPV 10.9 fL (8.0-11.0) 12/29/18 08:30 Immature Gran % 0.4 12/29/18 08:30 Neutrophils % 78.1 12/29/18 08:30 Lymphocytes % 7.9 12/29/18 08:30 Monocytes % 10.7 12/29/18 08:30 Eosinophils % 2.4 12/29/18 08:30 Basophils % 0.5 12/29/18 08:30 Absolute Neutrophils 5.89 k/cumm (1.2-6.7) 12/29/18 08:30 Absolute Lymphocytes 0.60 k/cumm (1.2-3.4) L 12/29/18 08:30 Absolute Monocytes 0.81 k/cumm (0.11-0.7) H 12/29/18 08:30 Absolute Eosinophils 0.18 k/cumm (0.0-0.7) 12/29/18 08:30 Absolute Basophils 0.04 k/cumm (0.0-0.2) 12/29/18 08:30 Differential Comment Rbc morph reviewed 12/25/18 06:26 RBC Morphology Normal 12/25/18 06:26 Sodium 138 mmol/L (136-145) 12/29/18 08:30 Potassium 3.6 mmol/L (3.5-5.1) 12/29/18 08:30 Chloride 105 mmol/L (98-107) 12/29/18 08:30 Carbon Dioxide 20.6 mmol/L (21.0-32.0) L 12/29/18 08:30 Anion Gap 12.4 mmol/L (3-11) H 12/29/18 08:30 BUN 50 mg/dL (7-18) H 12/29/18 08:30 Creatinine 3.50 mg/dL (0.55-1.02) H 12/29/18 08:30 Estimated GFR/1.73 m2 13.15 (mL/min/1.73m2) 12/29/18 08:30 Glucose 108 mg/dL (70-100) H 12/29/18 08:30 Calcium 10.6 mg/dL (8.5-10.1) H 12/29/18 08:30 Ionized Calcium 1.58 mmol/L (1.12-1.32) H 12/24/18 11:04 Magnesium 1.8 mg/dL (1.8-2.4) 12/29/18 08:30 Total Bilirubin 0.6 mg/dL (0.2-1.0) 12/25/18 06:26 Conjugated Bilirubin 0.10 mg/dL (0.00-0.20) 12/25/18 06:26 AST 20 U/L (15-37) 12/25/18 06:26 ALT 18 U/L (12-78) 12/25/18 06:26 Alkaline Phosphatase 79 U/L (46-116) 12/25/18 06:26 Lactate Dehydrogenase 180 U/L (81-234) 12/24/18 10:32 Total Protein 7.2 g/dL (6.4-8.2) 12/25/18 06:26 Total Protein (PEP) 7.4 g/dl (6.3-8.2) 12/24/18 10:32 Albumin 3.0 g/dL (3.4-5.0) L 12/25/18 06:26 Albumin % (PEP) 51.4 % (55.8-66.1) L 12/24/18 10:32 Wqzkl-3-Gorsrwtuz (%) 5.9 % (2.9-4.9) H 12/24/18 10:32 Ajheo-9-Hvggifgyn (%) 9.9 % (7.1-11.8) 12/24/18 10:32 Beta Globulins (%) 11.2 % (8.4-13.1) 12/24/18 10:32 Wirf-9-Asbreqdqzrnmt 15.70 mcg/mL H 12/24/18 10:32 Gamma Globulins (%) 21.6 % (11.1-18.8) H 12/24/18 10:32 M-Logan % Not Applicable 12/24/18 10:32 PEP Comment See comment 12/24/18 10:32 CA 125 Antigen 11 U/mL (0-30) 12/26/18 06:55 Urine Color Yellow (Yellow) 12/24/18 12:20 Urine Clarity Clear 12/24/18 12:20 Urine pH 7.0 (5-8) 12/24/18 12:20 Ur Specific [place] 1.015 (1.005-1.025) 12/24/18 12:20 Urine Protein 100 mg/dL (Negative) H 12/24/18 12:20 Urine Ketones Negative mg/dL (Negative) 12/24/18 12:20 Urine Blood Trace-lysed (Negative) H 12/24/18 12:20 Urine Nitrite Negative (Negative) 12/24/18 12:20 Urine Bilirubin Negative (Negative) 12/24/18 12:20 Urine Urobilinogen 0.2 EU/dL (Up TO 0.2) 12/24/18 12:20 Ur Leukocyte Esterase Small (Negative) H 12/24/18 12:20 Urine RBC 3-5 (0-2) H 12/24/18 12:20 Urine WBC 5-10 HPF (0-5) 12/24/18 12:20 Ur Epithelial Cells Many HPF (Negative) 12/24/18 12:20 Urine Crystals Moderate amorphous HPF (Negative) 12/24/18 12:20 Urine Bacteria Moderate HPF (Negative) 12/24/18 12:20 Urine Casts 0-2 coarse granular LPF (Negative) 12/24/18 12:20 Urine Mucus Negative (Negative) 12/24/18 12:20 Urine Other Few renal (Negative) 12/24/18 12:20 Ur Culture Indicated? No/sq. contamination 12/24/18 12:20 Ur Random Albumin Cancelled 12/24/18 12:34 U Random Total Protein Cancelled 12/24/18 12:34 Urine Glucose Negative mg/dL (Negative) 12/24/18 12:20 Ur Protein 24 Hr Calc Cancelled 12/24/18 12:34 Urine Globulin Cancelled 12/24/18 12:34 Urine Random PEP Note Cancelled 12/24/18 12:34 Urine Immunofixation Cancelled 12/24/18 12:34 Free [place] LC, Quant 10.15 mg/dL (0.33-1.94) H 12/24/18 10:32 Free Lambda LC, Quant 5.14 mg/dL (0.57-2.63) H 12/24/18 10:32 Free [place]/Lambda Ratio 1.97 (0.26-1.65) H 12/24/18 10:32
--- NOTE | 2018-12-29 12:38 | PGE_ITS ---
Date of Service Date of service: 12/29/18 Time of Service: 13:03 Assessment and Plan (1) Acute renal failure: Start date: 12/29/18 Start time: 12:57 Current visit: Yes Status: Acute Mild improvement again today. Creatinine improved to 3.50. Continue to cautiously hydrate with IV fluids, avoid nephrotoxic medications. Spoke with Hemetology/Oncology at [facility] Dr. Lyn on 12/28. Kidney function most likely the result of an underlying process and [facility] feels she would benefit from biposy for further treatment of underlying process. Would like her to continue to receive IVF and improve renal function while we set up IR for biopsy. Discharge tomorrow possibly. Qualifiers: Acute renal failure type: unspecified Qualified Code(s): N17.9 - Acute kidney failure, unspecified (2) Hypercalcemia: Start date: 12/29/18 Start time: 12:59 Current visit: Yes Status: Acute Improving but still elevated at 10.6 (3) Lytic lesion of bone on x-ray: Start date: 12/29/18 Start time: 13:00 Current visit: No Status: Acute Noted on CT. With concern for myeloma versus metastatic disease. Follow up with IR for bone biopsy. will try to initiate tomorrow (4) Adnexal mass: Start date: 12/29/18 Start time: 13:01 Current visit: Yes Status: Acute Pelvic ultrasound shows complex cystic mass. HUB ASSOCIATE consulted and feels this mass represents a cyst, see note for details. (5) Lung nodule: Start date: 12/29/18 Start time: 13:01 Current visit: No Status: Acute 1.8 cm left lingular nodule noted on CT. Case discussed with Hematology/Oncology as above. Cough has improved. Continue nebs, IHS, (6) Cardiomyopathy: Start date: 12/29/18 Start time: 13:01 Current visit: No Status: Acute Presumed to be stress related in the setting of multiple losses over the past 15 years. Most recent echocardiogram in 08/2018 showed LVEF of 40-45%. Continue light IVF overnight, dc in the am. (7) DVT prophylaxis: Start date: 12/29/18 Start time: 13:01 Current visit: No Status: Acute Subcutaneous heparin. (8) Discharge planning issues: Start date: 12/29/18 Start time: 13:01 Current visit: No Status: Acute She is a FULL code. High concern for multiple myeloma vs metastatic disease. Her case was previously discussed with hematology/oncology, she will need to follow up with heme/onc. Subjective Patient reports: feels better Interval history since last seen: Mrs. Guevara is feeling good today. She is sitting up in the chair. Asking about her labs. She denies pain, nausea, vomiting, diarrhea, chest pain, shortness of breath. Her creatinine is mildly improved at 3.50 today. She has been tolerating IVF, no symptoms of fluid overload continue light hydration to improve kidney function. Her calcium was 10.6 today. She would like to go home but agrees to staying tonight so IR can be set up for biopsy in the setting of unknown origin for acute kidney injury, cough x 4 months of unknown origin and CT revealing metastatic disease vs multiple myeloma. Exam Const General: cooperative, healthy appearing and no acute distress HENMT Head: normal to inspection Eyes General: appearance normal, both eyes and all related structures Neck Neck: normal visual inspection Chest Chest: normal inspection of the chest Resp Effort & Inspection: normal respiratory effort and cough Other: harsh nonproductive cough brought on by speaking, talking, tends to be seasonal Cardio Jugular venous pressure: no JVD Rate: regular rate Rhythm: regular rhythm Heart Sounds: gallop Neuro General: alert, awake and oriented x3 Extrem General: normal to inspection Objective Objective Clinical Data: Abnormal lab results 12/29/18 12/29/18 Range/Units 08:30 08:30 RBC 3.19 L (4.00-5.20) m/cumm Hgb 9.4 L (12.0-15.5) g/dL Hct 28.5 L (36.0-46.0) % Absolute Lymphocytes 0.60 L (1.2-3.4) k/cumm Absolute Monocytes 0.81 H (0.11-0.7) k/cumm Carbon Dioxide 20.6 L (21.0-32.0) mmol/L Anion Gap 12.4 H (3-11) mmol/L BUN 50 H (7-18) mg/dL Creatinine 3.50 H (0.55-1.02) mg/dL Glucose 108 H (70-100) mg/dL Calcium 10.6 H (8.5-10.1) mg/dL Vital Signs Temperature 36.8 C 12/29/18 11:10 Temperature Source Tympanic 12/29/18 11:10 Pulse 81 12/29/18 11:10 Pulse Rhythm Regular 12/29/18 08:31 Pulse 70 12/24/18 14:00 Respiratory Rate 19 12/29/18 11:10 Respiratory Effort Non-Labored 12/29/18 08:31 Respiratory Depth Normal 12/29/18 08:31 Respiratory Pattern Normal 12/29/18 08:31 Blood Pressure 151/75 H 12/29/18 11:10 Blood Pressure Position Sitting 12/24/18 10:25 Pulse Oximetry 94 L 12/29/18 11:10 Oxygen Delivery Method Room Air 12/29/18 11:10 Oxygen Flow Rate 0 12/29/18 11:10 Pain Level 0 12/29/18 11:10 Comment 12/29/18 04:10 Intake & Output 12/28/18 12/29/18 12/29/18 23:59 11:59 23:59 Intake Total 1478.667 / 3617.334 2836.667 / 2836.667 Output Total 1650 / 5400 2700 / 2700 Balance -171.333 / -1782.666 136.667 / 136.667 Weight 85 kg Intake: IV 998.667 / 1977.334 966.667 / 966.667 Oral 480 / 1640 1870 / 1870 Output: Urine 1650 / 5400 2700 / 2700 Other: Urine Color Yellow Yellow Urine Appearance Clear Clear Urine Odor None Normal Comment hat in toilet Stool Occult Blood Negative Negative Stool Size Small Moderate Stool Characteristics Soft Soft Brown Formed Brown Voiding Methods Toilet Toilet Laboratory Results WBC 7.55 k/cumm (4.4-10.8) 12/29/18 08:30 RBC 3.19 m/cumm (4.00-5.20) L 12/29/18 08:30 Hgb 9.4 g/dL (12.0-15.5) L 12/29/18 08:30 Hct 28.5 % (36.0-46.0) L 12/29/18 08:30 MCV 89.3 fL (80-95) 12/29/18 08:30 MCH 29.5 pg (27.0-33.0) 12/29/18 08:30 MCHC 33.0 g/dL (32.0-36.0) 12/29/18 08:30 RDW 13.2 % (11.7-14.6) 12/29/18 08:30 Plt Count 161 x1000/uL (130-400) 12/29/18 08:30 MPV 10.9 fL (8.0-11.0) 12/29/18 08:30 Immature Gran % 0.4 12/29/18 08:30 Neutrophils % 78.1 12/29/18 08:30 Lymphocytes % 7.9 12/29/18 08:30 Monocytes % 10.7 12/29/18 08:30 Eosinophils % 2.4 12/29/18 08:30 Basophils % 0.5 12/29/18 08:30 Absolute Neutrophils 5.89 k/cumm (1.2-6.7) 12/29/18 08:30 Absolute Lymphocytes 0.60 k/cumm (1.2-3.4) L 12/29/18 08:30 Absolute Monocytes 0.81 k/cumm (0.11-0.7) H 12/29/18 08:30 Absolute Eosinophils 0.18 k/cumm (0.0-0.7) 12/29/18 08:30 Absolute Basophils 0.04 k/cumm (0.0-0.2) 12/29/18 08:30 Differential Comment Rbc morph reviewed 12/25/18 06:26 RBC Morphology Normal 12/25/18 06:26 Sodium 138 mmol/L (136-145) 12/29/18 08:30 Potassium 3.6 mmol/L (3.5-5.1) 12/29/18 08:30 Chloride 105 mmol/L (98-107) 12/29/18 08:30 Carbon Dioxide 20.6 mmol/L (21.0-32.0) L 12/29/18 08:30 Anion Gap 12.4 mmol/L (3-11) H 12/29/18 08:30 BUN 50 mg/dL (7-18) H 12/29/18 08:30 Creatinine 3.50 mg/dL (0.55-1.02) H 12/29/18 08:30 Estimated GFR/1.73 m2 13.15 (mL/min/1.73m2) 12/29/18 08:30 Glucose 108 mg/dL (70-100) H 12/29/18 08:30 Calcium 10.6 mg/dL (8.5-10.1) H 12/29/18 08:30 Ionized Calcium 1.58 mmol/L (1.12-1.32) H 12/24/18 11:04 Magnesium 1.8 mg/dL (1.8-2.4) 12/29/18 08:30 Total Bilirubin 0.6 mg/dL (0.2-1.0) 12/25/18 06:26 Conjugated Bilirubin 0.10 mg/dL (0.00-0.20) 12/25/18 06:26 AST 20 U/L (15-37) 12/25/18 06:26 ALT 18 U/L (12-78) 12/25/18 06:26 Alkaline Phosphatase 79 U/L (46-116) 12/25/18 06:26 Lactate Dehydrogenase 180 U/L (81-234) 12/24/18 10:32 Total Protein 7.2 g/dL (6.4-8.2) 12/25/18 06:26 Total Protein (PEP) 7.4 g/dl (6.3-8.2) 12/24/18 10:32 Albumin 3.0 g/dL (3.4-5.0) L 12/25/18 06:26 Albumin % (PEP) 51.4 % (55.8-66.1) L 12/24/18 10:32 Zhpfz-9-Xkwtesmpf (%) 5.9 % (2.9-4.9) H 12/24/18 10:32 Gwdip-9-Kgwkpnzjw (%) 9.9 % (7.1-11.8) 12/24/18 10:32 Beta Globulins (%) 11.2 % (8.4-13.1) 12/24/18 10:32 Valw-0-Wiybhjjmjqmpe 15.70 mcg/mL H 12/24/18 10:32 Gamma Globulins (%) 21.6 % (11.1-18.8) H 12/24/18 10:32 M-Logan % Not Applicable 12/24/18 10:32 PEP Comment See comment 12/24/18 10:32 CA 125 Antigen 11 U/mL (0-30) 12/26/18 06:55 Urine Color Yellow (Yellow) 12/24/18 12:20 Urine Clarity Clear 12/24/18 12:20 Urine pH 7.0 (5-8) 12/24/18 12:20 Ur Specific [place] 1.015 (1.005-1.025) 12/24/18 12:20 Urine Protein 100 mg/dL (Negative) H 12/24/18 12:20 Urine Ketones Negative mg/dL (Negative) 12/24/18 12:20 Urine Blood Trace-lysed (Negative) H 12/24/18 12:20 Urine Nitrite Negative (Negative) 12/24/18 12:20 Urine Bilirubin Negative (Negative) 12/24/18 12:20 Urine Urobilinogen 0.2 EU/dL (Up TO 0.2) 12/24/18 12:20 Ur Leukocyte Esterase Small (Negative) H 12/24/18 12:20 Urine RBC 3-5 (0-2) H 12/24/18 12:20 Urine WBC 5-10 HPF (0-5) 12/24/18 12:20 Ur Epithelial Cells Many HPF (Negative) 12/24/18 12:20 Urine Crystals Moderate amorphous HPF (Negative) 12/24/18 12:20 Urine Bacteria Moderate HPF (Negative) 12/24/18 12:20 Urine Casts 0-2 coarse granular LPF (Negative) 12/24/18 12:20 Urine Mucus Negative (Negative) 12/24/18 12:20 Urine Other Few renal (Negative) 12/24/18 12:20 Ur Culture Indicated? No/sq. contamination 12/24/18 12:20 Ur Random Albumin Cancelled 12/24/18 12:34 U Random Total Protein Cancelled 12/24/18 12:34 Urine Glucose Negative mg/dL (Negative) 12/24/18 12:20 Ur Protein 24 Hr Calc Cancelled 12/24/18 12:34 Urine Globulin Cancelled 12/24/18 12:34 Urine Random PEP Note Cancelled 12/24/18 12:34 Urine Immunofixation Cancelled 12/24/18 12:34 Free [place] LC, Quant 10.15 mg/dL (0.33-1.94) H 12/24/18 10:32 Free Lambda LC, Quant 5.14 mg/dL (0.57-2.63) H 12/24/18 10:32 Free [place]/Lambda Ratio 1.97 (0.26-1.65) H 12/24/18 10:32
[2018-12-29 15:33] VITALS: BP 150/75; PULSE 82; RESP 18; TEMP 37.6; O2SAT 97
--- NOTE | 2018-12-29 16:35 | PDOC.CMPRO ---
Care Management Progress Note S/O: Jen is sitting up in her chair and said she had a lot of appointments to take care of tomorrow but would agree to remain overnight. Discussed again the need to have a biopsy scheduled at [facility] through the Interventional Radiology Department which would be open tomorrow.. The results will be used to guide her treatment plan with the Oncologist going forward. She remains agreeable to the plan and her friend is available to drive her on Sunday if we can set up an appointment. CM faxed information for a heme/onc F/U with Dr. Lyn at [facility] on 12/27. They cannot schedule the appointment until the biopsy has been completed. Original instruction was to schedule through thoracic surgery surgery. US results faxed to [facility]/Onc, ([phone]) on 12/27. A: 63 y/o female admitted 12/24/18 for ENA P: Jen will return home with no anticipated services once medically cleared. She will have the biopsy scheduled at [facility] as an outpatient, F/U with PCP and request appointment with Heme/Onc. Possible discharge home 12/29. Friend to transport when ready.
--- NOTE | 2018-12-29 16:41 | CMPROGNOTE_ITS ---
Care Management Progress Note S/O: Jen is sitting up in her chair and said she had a lot of appointments to take care of tomorrow but would agree to remain overnight. Discussed again the need to have a biopsy scheduled at [facility] through the Interventional Radiology Department which would be open tomorrow.. The results will be used to guide her treatment plan with the Oncologist going forward. She remains agreeable to the plan and her friend is available to drive her on Sunday if we can set up an appointment. CM faxed information for a heme/onc F/U with Dr. Lyn at [facility] on 12/27. They cannot schedule the appointment until the biopsy has been completed. Original instruction was to schedule through thoracic surgery surgery. US results faxed to [facility]/Onc, ([phone]) on 12/27. A: 63 y/o female admitted 12/24/18 for ENA P: Jen will return home with no anticipated services once medically cleared. She will have the biopsy scheduled at [facility] as an outpatient, F/U with PCP and request appointment with Heme/Onc. Possible discharge home 12/29. Friend to transport when ready.
[2018-12-29 19:05] VITALS: BP 146/82; PULSE 78; RESP 18; TEMP 36.6; O2SAT 97
[2018-12-29] MEDS: Albuterol/Ipratropium 3 ML UPD VIAL UPD (19:53)
[2018-12-30 00:33] VITALS: BP 132/81; PULSE 86; RESP 16; TEMP 37.4; O2SAT 91
[2018-12-30 04:09] VITALS: BP 144/83; PULSE 75; RESP 20; TEMP 37.2; O2SAT 92
[2018-12-30] MEDS: Heparin 5,000 UNITS/ML VIAL 5000 UNITS SC ×3 (06:57→21:34)
[2018-12-30] MEDS: Budesonide/Formoterol 160/4.5 6 GM 60 PUFF INH IH ×2 (07:08→20:05)
[2018-12-30 07:10] VITALS: BP 148/80; PULSE 84; RESP 20; TEMP 36.9; O2SAT 94
[2018-12-30] MEDS: Metoprolol CR 100 MG TABCR PO (08:05)
[2018-12-30 08:31] LABS: Abs Immature Grans 0.03 k/cumm (0.0-0.09); Absolute Basophil Count 0.05 k/cumm (0.0-0.2); Absolute Eosinophil Count 0.18 k/cumm (0.0-0.7); Absolute Lymphocyte Count 0.65 k/cumm (1.2-3.4); Absolute Monocyte Count 0.88 k/cumm (0.11-0.7); Absolute Neutrophil Count 5.09 k/cumm (1.2-6.7); Basophils % 0.7; Eosinophils % 2.6; HCT 28.1 % (36.0-46.0); HGB 8.9 g/dL (12.0-15.5); Immature Grans % 0.4; Lymphocytes % 9.4; Mean Corp. HGB Concentration 31.7 g/dL (32.0-36.0); Mean Corpuscular Hemoglobin 28.4 pg (27.0-33.0); Mean Corpuscular Volume 89.8 fL (80-95); Mean Platelet Volume 10.9 fL (8.0-11.0); Monocytes % 12.8; Neutrophils % 74.1; Platelet Count 176 x1000/uL (130-400); RBC 3.13 m/cumm (4.00-5.20); RBC Distribution Width 13.3 % (11.7-14.6); White Blood Cell Count 6.88 k/cumm (4.4-10.8)
[2018-12-30 08:47] LABS: BUN 48 mg/dL (7-18); Calcium 10.9 mg/dL (8.5-10.1); Chloride 105 mmol/L (98-107); Estimated GFR 12.65 (mL/min/1.73m2); Glucose 132 mg/dL (70-100); Magnesium 1.8 mg/dL (1.8-2.4); Potassium 3.6 mmol/L (3.5-5.1); Sodium 139 mmol/L (136-145)
[2018-12-30 08:49] LABS: CREATININE 3.62 mg/dL (0.55-1.02)
[2018-12-30 08:55] LABS: Diff Comment RBC Morph Reviewed; Hypochromasia 1+; Polychromasia Present
--- NOTE | 2018-12-30 09:48 | NUR.NOTE ---
Nursing Note: critical value for creatinine, 3.62, Zoë Richardson [facility] advised to pass this along to the provider, awaiting new orders
[2018-12-30] MEDS: Magnesium Oxide 400 MG TAB PO (11:05)
[2018-12-30] MEDS: Potassium Chloride 20 MEQ TABCR 40 MEQ PO (11:05)
[2018-12-30] MEDS: Acetaminophen 325 MG TAB PO (13:37)
[2018-12-30 14:02] VITALS: BP 169/82; PULSE 80; RESP 18; TEMP 36.9; O2SAT 96
[2018-12-30 15:39] VITALS: BP 150/74; PULSE 82; RESP 20; TEMP 36.2; O2SAT 94
--- NOTE | 2018-12-30 15:41 | W.NUTRFU ---
Date of service: 12/30/18 Time of Service: 15:41 Nutritional Follow up NOTE: Ms. Guevara requested a nutrition consult for a renal diet. Provided written materials as well as some instruction on nutrition therapy for acute kidney injury. I did explain that her nutrition therapy may change as she learns more what is going on. Ms. Guevara verbalized excellent understanding of the information. Time Spent in Nutritional Counseling and Treatment: NA
--- NOTE | 2018-12-30 15:42 | PDOC.CMPRO ---
Care Management Progress Note S/O-Met with Jen this afternoon-she was sleeping earlier when tried to visit. Multiple calls have been made by staff to facilitate appt at IR at [facility]. Cecelia DEAL, has now spoken with IR and they will return call with appt. for Sunday. Overall plan is for d/c home today and appt at [facility] IR on Sun for biopsy. A-63 yo woman admitted with ENA, adexnal mass. P-d/c home as per MD with OP appt at IR as scheduled.
--- NOTE | 2018-12-30 16:09 | DSE_ITS ---
Date of service: 12/30/18 Time of Service: 15:56 DS: Diagnosis Discharge Diagnosis (1) Acute renal failure: Status: Acute (2) Hypercalcemia: Status: Acute (3) Lytic lesion of bone on x-ray: Status: Acute (4) Adnexal mass: Status: Acute (5) Lung nodule: Status: Acute (6) Cardiomyopathy: Status: Acute (7) DVT prophylaxis: Status: Acute (8) Discharge planning issues: Status: Acute Discharge Plan Disposition Patient Disposition: HOME Condition: Stable Discharge Details Reason For Visit: ENA, SUSPECTED MULTIPLE MYELOMA, ADNEXAL MASS Admit Date/Time: 12/24/18 13:02 Admit Provider: Camilla Beatty Attending Provider: Camilla Beatty Primary Care Provider: Naveed Mckinney Hospital Course Hospital Course: Jen Guevara is a very pleasant 63-year-old female who was seen in her primary care provider office 12/24/2018 and found to have persistently elevated creatinine, as high as 5.61 in the emergency department . She previously had a baseline creatinine around 1, most recently checked less than 1 year ago. Since December 20, 2018, she has been followed closely by her primary care provider and her creatinine has remained around 5. She originally presented to his office for a harsh barking cough that she has had for approximately 4 months. She reported a weight loss of 20 pounds in the last 4 months, which she attributes to poor appetite as well as increasingly feeling more fatigued. In the emergency department, she had a CT of her chest, abdomen and pelvis which showed cholelithiasis with no ductal dilatation, colonic diverticulosis with no diverticulitis, multicystic left adnexal lesion, likely ovarian in origin, diffuse osseous lytic lesions, with concern for myeloma or metastatic disease, also a 1.8 cm well-circumscribed nodule in the left lingula. She was also found to have hypercalcemia. The emergency department attending physician, Dr. Mcneil, contacted hematology/oncology at [facility] and spoke with Dr. Lyn who made recommendations for labs to assess for multiple myeloma. Given the acute renal failure as well as the findings concerning for possible myeloma, she is admitted to the [facility] floor for further evaluation and management. 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 Her most recent echocardiogram in August 2018 showed LVEF of 40-45% (which was improved from 1 month prior LVEF of 25-30%). She had previously been on Aldactone and DARIELA inhibitor which were stopped by her primary care provider prior to her presentation. She currently reports a continued harsh, barking cough that is nonproductive, mild shortness of breath with exertion, no wheezing. She has noticed that she becomes fatigued very easily over the last few days. She has had a 20 pound weight loss in the last 4 months. She denies headaches, fevers, night sweats. No chest pain/pressure, her appetite has been poor, she has not been eating as much as usual, she did vomit once this morning but otherwise has had no nausea, vomiting or diarrhea. She has been somewhat constipated. She denies any urinary symptoms, including dysuria, hematuria, she reports that about a month ago she was getting up frequently at night to urinate however, that seems to have resolved. No lower extremity edema. No pain. Today she is feeling the same. Her creatinine is 3.6 and calcium 10.9. IVF dcd today after kidney function has not tritrated down. Spoke with [facility], they would like her to have a CT guided bone biopsy in the next 24-48 hours. She has been set up for an appointment on 1) Acute renal failure: Creatinine at 3.60. Today. avoid nephrotoxic medications. Spoke with Hemetology/Oncology at [facility] Dr. Lyn on 12/28. Kidney function most likely the result of an underlying process and [facility] feels she would benefit from biposy for further treatment of underlying process. Would like her to continue to receive IVF and improve renal function while we set up IR for biopsy. Qualifiers: Acute renal failure type: unspecified Qualified Code(s): N17.9 - Acute kidney failure, unspecified (2) Hypercalcemia: Improving but still elevated at 10.6 (3) Lytic lesion of bone on x-ray: Noted on CT. With concern for myeloma versus metastatic disease. Follow up with IR for bone biopsy. will try to initiate tomorrow (4) Adnexal mass: Pelvic ultrasound shows complex cystic mass. [employer] consulted and feels this mass represents a cyst, see note for details. (5) Lung nodule: 1.8 cm left lingular nodule noted on CT. Case discussed with Hematology/Oncology as above. Cough has improved. Continue nebs, IHS, (6) Cardiomyopathy: Presumed to be stress related in the setting of multiple losses over the past 15 years. Most recent echocardiogram in 08/2018 showed LVEF of 40-45%. Continue light IVF overnight, dc in the am. (7) DVT prophylaxis: Subcutaneous heparin. (8) Discharge planning issues: She is a FULL code. High concern for multiple myeloma vs metastatic disease. Her case was previously discussed with hematology/oncology, she will need to follow up with heme/onc. Home Meds and New Rx's Prescriptions: No Action Multi Complete with Iron 1 EACH tablet 1 tab-cap PO DAILY RF: 0 ascorbic acid (vitamin C) [Vitamin C] 500 MG tablet 500 mg PO DAILY RF: 0 vitamin E 400 UNIT capsule 400 unit PO DAILY Qty: 1 RF: 0 garlic 1 EACH capsule 1 ea PO DAILY RF: 0 omega-3 fatty acids-fish oil [Fish Oil] 1 EACH capsule 1 ea PO DAILY RF: 0 furosemide [Lasix] 20 MG tablet 20 mg PO DAILY RF: 0 Metoprolol Succinate 50 MG TAB.ER.24H 100 mg PO DAILY Qty: 90 RF: 4 cyanocobalamin (vitamin B-12) [Vitamin B-12] 100 mcg Tablet 100 mcg PO DAILY RF: 0 thiamine HCl (vitamin B1) [Vitamin B-1] 100 mg Tablet 100 mg PO DAILY RF: 0 Discharge Instructions Instructions: Dilated Cardiomyopathy (GEN), Acute Kidney Injury (GEN), Renal Failure Diet (GEN), Hypercalcemia (GEN), Bone Biopsy (GEN) Additional Instructions: Follow up with [facility] on If you have a fever, Shortness of breath, Chest pain, or leg pain go to the emergency department immediately. Activity:: Activity as Tolerated Equipment/Supplies:: No Equipment Needed Diet:: Renal diet Exam Const General: cooperative, healthy appearing and no acute distress [facility] Head: normal to inspection Eyes General: appearance normal, both eyes and all related structures Neck Neck: normal visual inspection Chest Chest: normal inspection of the chest Resp Effort & Inspection: normal respiratory effort and cough Cardio Jugular venous pressure: no JVD Rate: regular rate Rhythm: regular rhythm Heart Sounds: gallop Neuro General: alert, awake and oriented x3 Extrem General: normal to inspection DS: Data Vitals/I&O Vitals and I&O: Vital Signs Temperature 36.2 C L 12/30/18 15:39 Temperature Source Tympanic 12/30/18 15:39 Pulse 82 12/30/18 15:39 Pulse Rhythm Regular 12/30/18 10:32 Pulse 70 12/24/18 14:00 Respiratory Rate 20 12/30/18 15:39 Respiratory Effort 12/30/18 10:32 Respiratory Depth Normal 12/30/18 10:32 Respiratory Pattern Normal 12/30/18 10:32 Blood Pressure 150/74 H 12/30/18 15:39 Blood Pressure Position Sitting 12/24/18 10:25 Pulse Oximetry 94 L 12/30/18 15:39 Oxygen Delivery Method Room Air 12/30/18 15:39 Oxygen Flow Rate 0 12/30/18 15:39 Pain Level 5 12/30/18 14:02 Comment 12/30/18 14:02 Intake & Output 12/29/18 12/30/18 12/30/18 23:59 11:59 23:59 Intake Total 2184 / 5020.667 2140 / 2380 240 / 2380 Output Total 1300 / 4000 3000 / 3000 Balance 884 / 1020.667 -860 / -620 240 / -620 Weight 85.1 kg Intake: IV 904 / 6194.740 2483 / 1000 Oral 1280 / 3150 1140 / 1380 240 / 1380 Output: Urine 1300 / 4000 3000 / 3000 Other: Urine Color Yellow Pale Yellow Urine Appearance Clear Clear Urine Odor None Normal Comment hat in toilet Voiding Methods Toilet Toilet Completed studies during hospitalization [Text1]: Exam(s) a RAD:XR chest 2V PA & lateral SYMPTOM/DIAGNOSIS: COUGH,R05 PA AND LATERAL CHEST: The heart is not enlarged. The lungs show mild interstitial changes. There is an apparent new nodular radiodensity projected in the left infrahilar region measuring about 20 mm. in diameter on the PA view. This was not present on exa mination of 02/09/17. The possibility of a new intrapulmonary mass is raised. No pleural effusion is seen. No other significant findings. CONCLUSION: Question new left intrapulmonary mass. Chest CT requested for further evaluation. Exam(s) a CT:CT chest/abd/pel wo SYMPTOMS/DIAGNOSIS: ELEVATED CREATININE, WEAKNESS, CA 15, PULMONARY NODULE 12/20 CT SCAN OF THE CHEST, ABDOMEN AND PELVIS: A noncontrast examination was performed. No priors. CT SCAN OF THE ABDOMEN AND PELVIS: Lack of IV contrast does limit elevation of the abdominal and pelvic organs. The unenhanced liver appears grossly unremarkable. There are stones seen within the gallbladder. No biliary ductal dilatation is present. The unenhanced pancreas, spleen and adrenal glands are grossly unremarkable. The kidneys show no evidence of nephrolithiasis or obstructive uropathy. The urinary bladder is intact. The reproductive organs are visualized. There are several hypodense lesions seen in the left adnexa. The largest measures 4.8 cm. These likely are ovarian in origin. There is diverticulosis seen in the sigmoid colon but no evidence of acute diverticulitis. There is a round well circumscribed fat density lesion in the region of the cecum which may represent a lipoma. No solid mass is seen in the bowel. No findings to suggest an acute inflammatory or infectious process. No findings of an acute appendicitis or bowel obstruction. The abdominal aorta is intact. No significant abdominal or pelvic adenopathy, ascites or pneumoperitoneum is present. A trace amount of fluid is seen in the cul-de-sac which is likely physiologic. There are numerous lucencies seen in the bones. Differential considerations include myeloma vs metastatic disease. IMPRESSION: 1. Cholelithiasis. No biliary ductal dilatation. 2. Colonic diverticulosis but no evidence of acute diverticulitis. 3. Multi-cystic left adnexal lesion. These are likely ovarian in origin. Pelvic ultrasound may be obtained for further evaluation. 4. Lytic lesions seen within the bones. Differential considerations include myeloma or metastatic disease. Follow up as clinically appropriate. CT SCAN OF THE CHEST: The thoracic aorta is of normal caliber. The heart size is enlarged mildly. No significant pericardial effusion is seen. Coronary artery calcifications are present. No significant thoracic adenopathy is appreciated. There is a 1.8 cm noncalcified pulmonary nodule in the left lingula. This can be visualized on the chest x-ray from 12/20/18. There does appear to be some fat density within the nodule. There is an internal of minus 29.9 Hounsfield units. Scattered reticular nodular infiltrates are seen in the lung apices bilaterally. No areas of consolidation are seen in the lungs. Ground glass opacities are seen in the lung bases. The tracheobronchial tree is unremarkable. The osseous structures again show multiple lucencies. This may represent metastatic disease vs myeloma. IMPRESSION: 1. Diffuse osseous lytic lesions. Differential considerations include myeloma or metastatic disease. 2. 1.8 cm well circumscribed nodule in the left lingula. There is some lingula fat attenuation. Hamartoma should be considered. Other benign or malignant lesion should also be considered for further evaluation. 3. Reticular nodular disease in the lung apices. Inflammatory or infectious process should be considered. Exam(s) a US:US pelvis & transvaginal SYMPTOM/DIAGNOSIS: LT ADNEXAL MASS, WT LOSS,ELEVATED CA PELVIC ULTRASOUND: Transabdominal and transvaginal examination was performed. Comparison is made with CT scan performed the same day. The uterus measures 7.1 cm. long by 3.3 cm. AP by 4.0 cm. transverse. The endometrial stripe is within normal limits at .6 cm. There is a 1 by 1 by 0.9 cm., hypoechoic area in the anterior body of the uterus, likely reflecting a fibroid. The right ovary was not visualized. No cystic or solid lesion is seen in the right adnexa. In the left adnexa, there is a 4.5 by 2.7 by 5.1 cm., hypoechoic mass. No internal blood flow is seen. There is some posterior acoustic enhancement suggesting a cystic quality. There may be an internal septation noted. There is a small amount of free fluid in the pelvis. IMPRESSION: 1. Complex, 5.1 cm. left adnexal lesion corresponding to the finding on the CT scan. The findings may represent a complex cyst. Detail is limited due to patient positioning and body habitus. Gynecologic consult is recommended. MRI or direct visualization should be considered for further evaluation. 2. Findings suggestive of an intramural uterine fibroid. EXAM DATE/TIME: 12/24/2018 5:42 PM CLINICAL HISTORY: 63 years old, female; Abnormal findings; Mass/lesion; Lower quadrant, left; Prior surgery; Surgery date: 6+ months; Surgery type: PT states RT oophorectomy and appendectomy in 1981 TECHNIQUE: Imaging protocol: Real-time transabdominal and transvaginal pelvic ultrasound (complete) with image documentation. Transvaginal imaging was used for better evaluation of the endometrium and adnexa. COMPARISON: CT CHEST/ABD/PEL WO 12/24/2018 11:24 AM FINDINGS: Uterus/cervix: Uterus is normal in size and contour measuring 7.1 cm sagittal by 3.3 cm AP by 4.0 cm transverse. Within the anterior uterine midbody, there is circumscribed, oval hypoechoic 1.0 cm mass consistent with intramural fibroid. There is subtle linear hypoechoic irregularity of the anterior, lower uterine segment, suspicious for prior section, correlate with surgical history. Endometrium measures up to 0.6 cm in thickness, within normal limits. Cervix is closed without focal abnormality. Right adnexa: Right ovary is surgically absent. No right adnexal mass or significant free fluid. Left adnexa: Left adnexa measures up to 4.5 cm x 2.7 cm x 5.1 cm. There is complex, avascular hypoechoic mass within the left adnexa. No intrinsic vascularity. There is suggestion of thin internal septation, however study limitations limited evaluation. Normal color Doppler flow. Free fluid: No suspicious pelvic ascites. Bladder: Unremarkable as visualized. IMPRESSION: 1. Complex, avascular left adnexal mass, favor complex cyst. Consider surgical evaluation. 2. Anterior uterine midbody 1.0 cm intramural hypoechoic mass, likely fibroid. Dictated and Authenticated by: Bladimir Pina MD. Labs on day of discharge: Labs from last 24 hours 12/30/18 12/30/18 12/30/18 15:28 08:05 08:05 WBC 6.88 RBC 3.13 L Hgb 8.9 L Hct 28.1 L MCV 89.8 MCH 28.4 MCHC 31.7 L RDW 13.3 Plt Count 176 MPV 10.9 Immature Gran % 0.4 Neutrophils % 74.1 Lymphocytes % 9.4 Monocytes % 12.8 Eosinophils % 2.6 Basophils % 0.7 Absolute Neutrophils 5.09 Absolute Lymphocytes 0.65 L Absolute Monocytes 0.88 H Absolute Eosinophils 0.18 Absolute Basophils 0.05 Differential Comment Rbc morph reviewed RBC Morphology See below Polychromasia Present Hypochromasia 1+ Sodium 139 Potassium 3.6 Chloride 105 Carbon Dioxide 20.0 L Anion Gap 14.0 H BUN 48 H Creatinine 3.62 H* Estimated GFR/1.73 m2 12.65 Glucose 132 H Uric Acid Pending Calcium 10.9 H Magnesium 1.8 PFSH Medical History Dilated cardiomyopathy (Acute) Essential hypertension Surgical History Appendectomy Diagnostic Laproscopy (~1980) Oophrectomy, Left Family History Mother Dementia Father Prostate cancer Social History Smoking/Tobacco Use Status: Never Alcohol Intake: never Drug use: Never Substance use type: does not use Do you feel safe at home: Yes Do you feel safe in your relationship?: Yes
--- NOTE | 2018-12-30 16:09 | CHAPLAIN ---
Jen was sitting up in her chair when I visited. A friend was with her. Jen said it was possible she would be discharged as early as today, with a follow up appointment at [facility] for a biopsy. Jen did not talk about her diagnosis or prognosis and I didn't ask. I was not clear if she would want to discuss that with her friend visiting. 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 The play went on, and the school sent many photos and cards to Jen. She has had many visitors. 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
--- NOTE | 2018-12-30 16:10 | CMPROGNOTE_ITS ---
Care Management Progress Note S/O-Met with Jen this afternoon-she was sleeping earlier when tried to visit. Multiple calls have been made by staff to facilitate appt at IR at [facility]. Cecelia DEAL, has now spoken with IR and they will return call with appt. for Sunday. Overall plan is for d/c home today and appt at [facility] IR on Sun for biopsy. A-63 yo woman admitted with ENA, adexnal mass. P-d/c home as per MD with OP appt at IR as scheduled.
[2018-12-30 16:14] LABS: Uric Acid 5.8 mg/dL (2.6-6.0)
--- NOTE | 2018-12-30 16:21 | PDOC.CMDIS ---
LACE Index Scoring Tool - Questions: Length of Stay (in days): 7 - 13 Acuity (Admit via E.D.?): Yes Comorbidities: Liver or Renal Disease E.D. Visits: 1 - Answers: Total Score: 14 Risk of Readmission: High Risk Care Management Discharge Reason for Hospitalization: Acute renal failure Discharge Plan: she is being discharged home with appt for IR at [facility] on Sunday01/01/19. She has friends who will transport her. Patient/Family Education Needs: RN to review d/c instructions re meds and activity levels with patient. She is able to verbalize reason for hospitalization.
--- NOTE | 2018-12-30 16:26 | CMDISCH_ITS ---
LACE Index Scoring Tool - Questions: Length of Stay (in days): 7 - 13 Acuity (Admit via E.D.?): Yes Comorbidities: Liver or Renal Disease E.D. Visits: 1 - Answers: Total Score: 14 Risk of Readmission: High Risk Care Management Discharge Reason for Hospitalization: Acute renal failure Discharge Plan: she is being discharged home with appt for IR at [facility] on Sunday01/01/19. She has friends who will transport her. Patient/Family Education Needs: RN to review d/c instructions re meds and a ctivity levels with patient. She is able to verbalize reason for hospitalization.
--- NOTE | 2018-12-30 17:03 | W.PM.PROGNOT ---
Date of Service Date of service: 12/30/18 Time of Service: 17:16 Assessment and Plan (1) Acute renal failure: Current visit: Yes Status: Acute Creatinine at 3.60. Continue to cautiously hydrate with IV fluids, avoid nephrotoxic medications. Spoke with Hemetology/Oncology at [facility] Dr. Lyn on 12/28. Kidney function most likely the result of an underlying process and [facility] feels she would benefit from biopsy for further treatment of underlying process. IVF dcd after creatinine level at 3.6, trying to set up biopsy as an outpatient after discharge. May require tertiary care if unable to set appointment. All images have been sent to [facility] at [facility] and awaiting for date possible sunday. Qualifiers: Acute renal failure type: unspecified Qualified Code(s): N17.9 - Acute kidney failure, unspecified (2) Hypercalcemia: Current visit: Yes Status: Acute still elevated 1.9 (3) Lytic lesion of bone on x-ray: Current visit: No Status: Acute Noted on CT. With concern for myeloma versus metastatic disease. Follow up with IR for bone biopsy. will try to initiate tomorrow (4) Adnexal mass: Current visit: Yes Status: Acute Pelvic ultrasound shows complex cystic mass. EMBROIDERY OPERATOR consulted and feels this mass represents a cyst, see note for details. (5) Lung nodule: Current visit: No Status: Acute 1.8 cm left lingular nodule noted on CT. Case discussed with Hematology/Oncology as above. Cough has improved. Continue nebs, IHS, (6) Cardiomyopathy: Current visit: No Status: Acute Presumed to be stress related in the setting of multiple losses over the past 15 years. Most recent echocardiogram in 08/2018 showed LVEF of 40-45%. Continue light IVF overnight, dc in the am. (7) DVT prophylaxis: Current visit: No Status: Acute Subcutaneous heparin. (8) Discharge planning issues: Current visit: No Status: Acute She is a FULL code. High concern for multiple myeloma vs metastatic disease. Her case was previously discussed with hematology/oncology, she will need to follow up with heme/onc. Subjective Patient reports: feels better Interval history since last seen: She is feeling the same today. Creatinine is 3.6. IVF dcd, Ca 1.9. Awaiting a call from [facility] for time and date for CT guided biopsy through [facility]. All images have been sent over along with an order. Spoke with Dr. Tinajero and Dakotah today considered inpatient with the insistance of Dr. Lyn from Heme/occ at [facility] unless she could get a bone biopsy in 24-[address]. [address] Tinajero around 445 unable to schedule today will schedule in am and discharge patient tomorrow with order for outpatient labs for follow up in three days. She is asking for something to sleep, benadryl has been ordered. She denies chest pain, shortness of breath, n/v/d. Exam Const General: cooperative, healthy appearing and no acute distress Nutritional Appearance: well nourished Orientation: alert, awake and oriented x3 HENMT Head: normal to inspection Eyes General: appearance normal, both eyes and all related structures Neck Neck: normal visual inspection Chest Chest: normal inspection of the chest Resp Effort & Inspection: normal respiratory effort and cough Cardio Jugular venous pressure: no JVD Rate: regular rate Rhythm: regular rhythm Heart Sounds: gallop GI Palpation: soft and no hepatosplenomegaly General: deferred (Bimanual exam deferred) Speculum Exam - Vagina: other (Reviewed with patient of her pelvic ultrasound results) Neuro General: alert, awake and oriented x3 Extrem General: normal to inspection Objective Objective Clinical Data: Abnormal lab results 12/30/18 12/30/18 Range/Units 08:05 08:05 RBC 3.13 L (4.00-5.20) m/cumm Hgb 8.9 L (12.0-15.5) g/dL Hct 28.1 L (36.0-46.0) % MCHC 31.7 L (32.0-36.0) g/dL Absolute Lymphocytes 0.65 L (1.2-3.4) k/cumm Absolute Monocytes 0.88 H (0.11-0.7) k/cumm Carbon Dioxide 20.0 L (21.0-32.0) mmol/L Anion Gap 14.0 H (3-11) mmol/L BUN 48 H (7-18) mg/dL Creatinine 3.62 H* (0.55-1.02) mg/dL Glucose 132 H (70-100) mg/dL Calcium 10.9 H (8.5-10.1) mg/dL Vital Signs Temperature 36.2 C L 12/30/18 15:39 Temperature Source Tympanic 12/30/18 15:39 Pulse 82 12/30/18 15:39 Pulse Rhythm Regular 12/30/18 10:32 Pulse 70 12/24/18 14:00 Respiratory Rate 20 12/30/18 15:39 Respiratory Effort 12/30/18 10:32 Respiratory Depth Normal 12/30/18 10:32 Respiratory Pattern Normal 12/30/18 10:32 Blood Pressure 150/74 H 12/30/18 15:39 Blood Pressure Position Sitting 12/24/18 10:25 Pulse Oximetry 94 L 12/30/18 15:39 Oxygen Delivery Method Room Air 12/30/18 15:39 Oxygen Flow Rate 0 12/30/18 15:39 Pain Level 5 12/30/18 14:02 Comment 12/30/18 14:02 Intake & Output 12/29/18 12/30/18 12/30/18 23:59 11:59 23:59 Intake Total 2184 / 5020.667 2140 / 2380 240 / 2380 Output Total 1300 / 4000 3000 / 3000 Balance 884 / 1020.667 -860 / -620 240 / -620 Weight 85.1 kg Intake: IV 904 / 8951.459 3086 / 1000 Oral 1280 / 3150 1140 / 1380 240 / 1380 Output: Urine 1300 / 4000 3000 / 3000 Other: Urine Color Yellow Pale Yellow Urine Appearance Clear Clear Urine Odor None Normal Comment hat in toilet Voiding Methods Toilet Toilet Laboratory Results WBC 6.88 k/cumm (4.4-10.8) 12/30/18 08:05 RBC 3.13 m/cumm (4.00-5.20) L 12/30/18 08:05 Hgb 8.9 g/dL (12.0-15.5) L 12/30/18 08:05 Hct 28.1 % (36.0-46.0) L 12/30/18 08:05 MCV 89.8 fL (80-95) 12/30/18 08:05 MCH 28.4 pg (27.0-33.0) 12/30/18 08:05 MCHC 31.7 g/dL (32.0-36.0) L 12/30/18 08:05 RDW 13.3 % (11.7-14.6) 12/30/18 08:05 Plt Count 176 x1000/uL (130-400) 12/30/18 08:05 MPV 10.9 fL (8.0-11.0) 12/30/18 08:05 Immature Gran % 0.4 12/30/18 08:05 Neutrophils % 74.1 12/30/18 08:05 Lymphocytes % 9.4 12/30/18 08:05 Monocytes % 12.8 12/30/18 08:05 Eosinophils % 2.6 12/30/18 08:05 Basophils % 0.7 12/30/18 08:05 Absolute Neutrophils 5.09 k/cumm (1.2-6.7) 12/30/18 08:05 Absolute Lymphocytes 0.65 k/cumm (1.2-3.4) L 12/30/18 08:05 Absolute Monocytes 0.88 k/cumm (0.11-0.7) H 12/30/18 08:05 Absolute Eosinophils 0.18 k/cumm (0.0-0.7) 12/30/18 08:05 Absolute Basophils 0.05 k/cumm (0.0-0.2) 12/30/18 08:05 Differential Comment Rbc morph reviewed 12/30/18 08:05 RBC Morphology See below 12/30/18 08:05 Polychromasia Present 12/30/18 08:05 Hypochromasia 1+ 12/30/18 08:05 Sodium 139 mmol/L (136-145) 12/30/18 08:05 Potassium 3.6 mmol/L (3.5-5.1) 12/30/18 08:05 Chloride 105 mmol/L (98-107) 12/30/18 08:05 Carbon Dioxide 20.0 mmol/L (21.0-32.0) L 12/30/18 08:05 Anion Gap 14.0 mmol/L (3-11) H 12/30/18 08:05 BUN 48 mg/dL (7-18) H 12/30/18 08:05 Creatinine 3.62 mg/dL (0.55-1.02) H* 12/30/18 08:05 Estimated GFR/1.73 m2 12.65 (mL/min/1.73m2) 12/30/18 08:05 Glucose 132 mg/dL (70-100) H 12/30/18 08:05 Calcium 10.9 mg/dL (8.5-10.1) H 12/30/18 08:05 Ionized Calcium 1.58 mmol/L (1.12-1.32) H 12/24/18 11:04 Magnesium 1.8 mg/dL (1.8-2.4) 12/30/18 08:05 Total Bilirubin 0.6 mg/dL (0.2-1.0) 12/25/18 06:26 Conjugated Bilirubin 0.10 mg/dL (0.00-0.20) 12/25/18 06:26 AST 20 U/L (15-37) 12/25/18 06:26 ALT 18 U/L (12-78) 12/25/18 06:26 Alkaline Phosphatase 79 U/L (46-116) 12/25/18 06:26 Lactate Dehydrogenase 180 U/L (81-234) 12/24/18 10:32 Total Protein 7.2 g/dL (6.4-8.2) 12/25/18 06:26 Total Protein (PEP) 7.4 g/dl (6.3-8.2) 12/24/18 10:32 Albumin 3.0 g/dL (3.4-5.0) L 12/25/18 06:26 Albumin % (PEP) 51.4 % (55.8-66.1) L 12/24/18 10:32 Qiapw-1-Ddatkyrag (%) 5.9 % (2.9-4.9) H 12/24/18 10:32 Lhpxt-7-Lqysbifno (%) 9.9 % (7.1-11.8) 12/24/18 10:32 Beta Globulins (%) 11.2 % (8.4-13.1) 12/24/18 10:32 Kyen-8-Mgguadhmeccpl 15.70 mcg/mL H 12/24/18 10:32 Gamma Globulins (%) 21.6 % (11.1-18.8) H 12/24/18 10:32 M-Logan % Not Applicable 12/24/18 10:32 PEP Comment See comment 12/24/18 10:32 CA 125 Antigen 11 U/mL (0-30) 12/26/18 06:55 Urine Color Yellow (Yellow) 12/24/18 12:20 Urine Clarity Clear 12/24/18 12:20 Urine pH 7.0 (5-8) 12/24/18 12:20 Ur Specific [place] 1.015 (1.005-1.025) 12/24/18 12:20 Urine Protein 100 mg/dL (Negative) H 12/24/18 12:20 Urine Ketones Negative mg/dL (Negative) 12/24/18 12:20 Urine Blood Trace-lysed (Negative) H 12/24/18 12:20 Urine Nitrite Negative (Negative) 12/24/18 12:20 Urine Bilirubin Negative (Negative) 12/24/18 12:20 Urine Urobilinogen 0.2 EU/dL (Up TO 0.2) 12/24/18 12:20 Ur Leukocyte Esterase Small (Negative) H 12/24/18 12:20 Urine RBC 3-5 (0-2) H 12/24/18 12:20 Urine WBC 5-10 HPF (0-5) 12/24/18 12:20 Ur Epithelial Cells Many HPF (Negative) 12/24/18 12:20 Urine Crystals Moderate amorphous HPF (Negative) 12/24/18 12:20 Urine Bacteria Moderate HPF (Negative) 12/24/18 12:20 Urine Casts 0-2 coarse granular LPF (Negative) 12/24/18 12:20 Urine Mucus Negative (Negative) 12/24/18 12:20 Urine Other Few renal (Negative) 12/24/18 12:20 Ur Culture Indicated? No/sq. contamination 12/24/18 12:20 Ur Random Albumin Cancelled 12/24/18 12:34 U Random Total Protein Cancelled 12/24/18 12:34 Urine Glucose Negative mg/dL (Negative) 12/24/18 12:20 Ur Protein 24 Hr Calc Cancelled 12/24/18 12:34 Urine Globulin Cancelled 12/24/18 12:34 Urine Random PEP Note Cancelled 12/24/18 12:34 Urine Immunofixation Cancelled 12/24/18 12:34 Free [place] LC, Quant 10.15 mg/dL (0.33-1.94) H 12/24/18 10:32 Free Lambda LC, Quant 5.14 mg/dL (0.57-2.63) H 12/24/18 10:32 Free [place]/Lambda Ratio 1.97 (0.26-1.65) H 12/24/18 10:32
--- NOTE | 2018-12-30 17:14 | PGE_ITS ---
Date of Service Date of service: 12/30/18 Time of Service: 17:16 Assessment and Plan (1) Acute renal failure: Current visit: Yes Status: Acute Creatinine at 3.60. Continue to cautiously hydrate with IV fluids, avoid nephrotoxic medications. Spoke with Hemetology/Oncology at [facility] Dr. Lyn on 12/28. Kidney function most likely the result of an underlying process and [facility] feels she would benefit from biopsy for further treatment of underlying process. IVF dcd after creatinine level at 3.6, trying to set up biopsy as an outpatient after discharge. May require tertiary care if unable to set appointment. All images have been sent to [facility] [place] [facility] and awaiting for date possible sunday. Qualifiers: Acute renal failure type: unspecified Qualified Code(s): N17.9 - Acute kidney failure, unspecified (2) Hypercalcemia: Current visit: Yes Status: Acute still elevated 1.9 (3) Lytic lesion of bone on x-ray: Current visit: No Status: Acute Noted on CT. With concern for myeloma versus metastatic disease. Follow up with IR for bone biopsy. will try to initiate tomorrow (4) Adnexal mass: Current visit: Yes Status: Acute Pelvic ultrasound shows complex cystic mass. RAILROAD CAR REPAIR SUPERVISOR consulted and feels this mass represents a cyst, see note for details. (5) Lung nodule: Current visit: No Status: Acute 1.8 cm left lingular nodule noted on CT. Case discussed with Hematolog y/Oncology as above. Cough has improved. Continue nebs, IHS, (6) Cardiomyopathy: Current visit: No Status: Acute Presumed to be stress related in the setting of multiple losses over the past 15 years. Most recent echocardiogram in 08/2018 showed LVEF of 40-45%. Continue light IVF overnight, dc in the am. (7) DVT prophylaxis: Current visit: No Status: Acute Subcutaneous heparin. (8) Discharge planning issues: Current visit: No Status: Acute She is a FULL code. High concern for multiple myeloma vs metastatic disease. Her case was previously discussed with hematology/oncology, she will need to follow up with heme/onc. Subjective Patient reports: feels better Interval history since last seen: She is feeling the same today. Creatinine is 3.6. IVF dcd, Ca 1.9. Awaiting a call from [facility] for time and date for CT guided biopsy through [facility]. All images have been sent over along with an order. Spoke with Dr. Tinajero and Dakotah today considered inpatient with the insistance of Dr. Lyn from Heme/occ at [facility] unless she could get a bone biopsy in 24-[address]. [address] Tinajero around 445 unable to schedule today will schedule in am and discharge patient tomorrow with order for outpatient labs for follow up in three days. She is asking for something to sleep, benadryl has been ordered. She denies chest pain, shortness of breath, n/v/d. Exam Const General: cooperative, healthy appearing and no acute distress Nutritional Appearance: well nourished Orientation: alert, awake and oriented x3 HENMT Head: normal to inspection Eyes General: appearance normal, both eyes and all related structures Neck Neck: normal visual inspection Chest Chest: normal inspection of the chest Resp Effort & Inspection: normal respiratory effort and cough Cardio Jugular venous pressure: no JVD Rate: regular rate Rhythm: regular rhythm Heart Sounds: gallop GI Palpation: soft and no hepatosplenomegaly General: deferred (Bimanual exam deferred) Speculum Exam - Vagina: other (Reviewed with patient of her pelvic ultrasound results) Neuro General: alert, awake and oriented x3 Extrem General: normal to inspection Objective Objective Clinical Data: Abnormal lab results 12/30/18 12/30/18 Range/Units 08:05 08:05 RBC 3.13 L (4.00-5.20) m/cumm Hgb 8.9 L (12.0-15.5) g/dL Hct 28.1 L (36.0-46.0) % MCHC 31.7 L (32.0-36.0) g/dL Absolute Lymphocytes 0.65 L (1.2-3.4) k/cumm Absolute Monocytes 0.88 H (0.11-0.7) k/cumm Carbon Dioxide 20.0 L (21.0-32.0) mmol/L Anion Gap 14.0 H (3-11) mmol/L BUN 48 H (7-18) mg/dL Creatinine 3.62 H* (0.55-1.02) mg/dL Glucose 132 H (70-100) mg/dL Calcium 10.9 H (8.5-10.1) mg/dL Vital Signs Temperature 36.2 C L 12/30/18 15:39 Temperature Source Tympanic 12/30/18 15:39 Pulse 82 12/30/18 15:39 Pulse Rhythm Regular 12/30/18 10:32 Pulse 70 12/24/18 14:00 Respiratory Rate 20 12/30/18 15:39 Respiratory Effort 12/30/18 10:32 Respiratory Depth Normal 12/30/18 10:32 Respiratory Pattern Normal 12/30/18 10:32 Blood Pressure 150/74 H 12/30/18 15:39 Blood Pressure Position Sitting 12/24/18 10:25 Pulse Oximetry 94 L 12/30/18 15:39 Oxygen Delivery Method Room Air 12/30/18 15:39 Oxygen Flow Rate 0 12/30/18 15:39 Pain Level 5 12/30/18 14:02 Comment 12/30/18 14:02 Intake & Output 12/29/18 12/30/18 12/30/18 23:59 11:59 23:59 Intake Total 2184 / 5020.667 2140 / 2380 240 / 2380 Output Total 1300 / 4000 3000 / 3000 Balance 884 / 1020.667 -860 / -620 240 / -620 Weight 85.1 kg Intake: IV 904 / 4124.199 4806 / 1000 Oral 1280 / 3150 1140 / 1380 240 / 1380 Output: Urine 1300 / 4000 3000 / 3000 Other: Urine Color Yellow Pale Yellow Urine Appearance Clear Clear Urine Odor None Normal Comment hat in toilet Voiding Methods Toilet Toilet Laboratory Results WBC 6.88 k/cumm (4.4-10.8) 12/30/18 08:05 RBC 3.13 m/cumm (4.00-5.20) L 12/30/18 08:05 Hgb 8.9 g/dL (12.0-15.5) L 12/30/18 08:05 Hct 28.1 % (36.0-46.0) L 12/30/18 08:05 MCV 89.8 fL (80-95) 12/30/18 08:05 MCH 28.4 pg (27.0-33.0) 12/30/18 08:05 MCHC 31.7 g/dL (32.0-36.0) L 12/30/18 08:05 RDW 13.3 % (11.7-14.6) 12/30/18 08:05 Plt Count 176 x1000/uL (130-400) 12/30/18 08:05 MPV 10.9 fL (8.0-11.0) 12/30/18 08:05 Immature Gran % 0.4 12/30/18 08:05 Neutrophils % 74.1 12/30/18 08:05 Lymphocytes % 9.4 12/30/18 08:05 Monocytes % 12.8 12/30/18 08:05 Eosinophils % 2.6 12/30/18 08:05 Basophils % 0.7 12/30/18 08:05 Absolute Neutrophils 5.09 k/cumm (1.2-6.7) 12/30/18 08:05 Absolute Lymphocytes 0.65 k/cumm (1.2-3.4) L 12/30/18 08:05 Absolute Monocytes 0.88 k/cumm (0.11-0.7) H 12/30/18 08:05 Absolute Eosinophils 0.18 k/cumm (0.0-0.7) 12/30/18 08:05 Absolute Basophils 0.05 k/cumm (0.0-0.2) 12/30/18 08:05 Differential Comment Rbc morph reviewed 12/30/18 08:05 RBC Morphology See below 12/30/18 08:05 Polychromasia Present 12/30/18 08:05 Hypochromasia 1+ 12/30/18 08:05 Sodium 139 mmol/L (136-145) 12/30/18 08:05 Potassium 3.6 mmol/L (3.5-5.1) 12/30/18 08:05 Chloride 105 mmol/L (98-107) 12/30/18 08:05 Carbon Dioxide 20.0 mmol/L (21.0-32.0) L 12/30/18 08:05 Anion Gap 14.0 mmol/L (3-11) H 12/30/18 08:05 BUN 48 mg/dL (7-18) H 12/30/18 08:05 Creatinine 3.62 mg/dL (0.55-1.02) H* 12/30/18 08:05 Estimated GFR/1.73 m2 12.65 (mL/min/1.73m2) 12/30/18 08:05 Glucose 132 mg/dL (70-100) H 12/30/18 08:05 Calcium 10.9 mg/dL (8.5-10.1) H 12/30/18 08:05 Ionized Calcium 1.58 mmol/L (1.12-1.32) H 12/24/18 11:04 Magnesium 1.8 mg/dL (1.8-2.4) 12/30/18 08:05 Total Bilirubin 0.6 mg/dL (0.2-1.0) 12/25/18 06:26 Conjugated Bilirubin 0.10 mg/dL (0.00-0.20) 12/25/18 06:26 AST 20 U/L (15-37) 12/25/18 06:26 ALT 18 U/L (12-78) 12/25/18 06:26 Alkaline Phosphatase 79 U/L (46-116) 12/25/18 06:26 Lactate Dehydrogenase 180 U/L (81-234) 12/24/18 10:32 Total Protein 7.2 g/dL (6.4-8.2) 12/25/18 06:26 Total Protein (PEP) 7.4 g/dl (6.3-8.2) 12/24/18 10:32 Albumin 3.0 g/dL (3.4-5.0) L 12/25/18 06:26 Albumin % (PEP) 51.4 % (55.8-66.1) L 12/24/18 10:32 Sbryl-8-Wufiwzjdg (%) 5.9 % (2.9-4.9) H 12/24/18 10:32 Qrnzf-6-Pijobthjx (%) 9.9 % (7.1-11.8) 12/24/18 10:32 Beta Globulins (%) 11.2 % (8.4-13.1) 12/24/18 10:32 Kcbr-7-Vvrdauwawkmbo 15.70 mcg/mL H 12/24/18 10:32 Gamma Globulins (%) 21.6 % (11.1-18.8) H 12/24/18 10:32 M-Logan % Not Applicable 12/24/18 10:32 PEP Comment See comment 12/24/18 10:32 CA 125 Antigen 11 U/mL (0-30) 12/26/18 06:55 Urine Color Yellow (Yellow) 12/24/18 12:20 Urine Clarity Clear 12/24/18 12:20 Urine pH 7.0 (5-8) 12/24/18 12:20 Ur Specific [place] 1.015 (1.005-1.025) 12/24/18 12:20 Urine Protein 100 mg/dL (Negative) H 12/24/18 12:20 Urine Ketones Negative mg/dL (Negative) 12/24/18 12:20 Urine Blood Trace-lysed (Negative) H 12/24/18 12:20 Urine Nitrite Negative (Negative) 12/24/18 12:20 Urine Bilirubin Negative (Negative) 12/24/18 12:20 Urine Urobilinogen 0.2 EU/dL (Up TO 0.2) 12/24/18 12:20 Ur Leukocyte Esterase Small (Negative) H 12/24/18 12:20 Urine RBC 3-5 (0-2) H 12/24/18 12:20 Urine WBC 5-10 HPF (0-5) 12/24/18 12:20 Ur Epithelial Cells Many HPF (Negative) 12/24/18 12:20 Urine Crystals Moderate amorphous HPF (Negative) 12/24/18 12:20 Urine Bacteria Moderate HPF (Negative) 12/24/18 12:20 Urine Casts 0-2 coarse granular LPF (Negative) 12/24/18 12:20 Urine Mucus Negative (Negative) 12/24/18 12:20 Urine Other Few renal (Negative) 12/24/18 12:20 Ur Culture Indicated? No/sq. contamination 12/24/18 12:20 Ur Random Albumin Cancelled 12/24/18 12:34 U Random Total Protein Cancelled 12/24/18 12:34 Urine Glucose Negative mg/dL (Negative) 12/24/18 12:20 Ur Protein 24 Hr Calc Cancelled 12/24/18 12:34 Urine Globulin Cancelled 12/24/18 12:34 Urine Random PEP Note Cancelled 12/24/18 12:34 Urine Immunofixation Cancelled 12/24/18 12:34 Free [place] LC, Quant 10.15 mg/dL (0.33-1.94) H 12/24/18 10:32 Free Lambda LC, Quant 5.14 mg/dL (0.57-2.63) H 12/24/18 10:32 Free [place]/Lambda Ratio 1.97 (0.26-1.65) H 12/24/18 10:32
[2018-12-30 20:38] VITALS: BP 146/75; PULSE 94; RESP 22; TEMP 37; O2SAT 95
[2018-12-30] MEDS: diphenhydrAMINE 25 MG CAP PO (21:34)
[2018-12-31 00:18] VITALS: BP 140/72; PULSE 53; RESP 22; TEMP 36.9; O2SAT 95
[2018-12-31 04:30] VITALS: BP 136/70; PULSE 83; RESP 22; TEMP 36.8; O2SAT 96
[2018-12-31] MEDS: Heparin 5,000 UNITS/ML VIAL 5000 UNITS SC ×2 (05:55→13:07)
[2018-12-31 07:15] VITALS: BP 144/77; PULSE 79; RESP 18; TEMP 36.9; O2SAT 98
[2018-12-31] MEDS: Budesonide/Formoterol 160/4.5 6 GM 60 PUFF INH IH (07:38)
[2018-12-31] MEDS: Metoprolol CR 100 MG TABCR PO (08:12)
[2018-12-31 08:21] LABS: Abs Immature Grans 0.03 k/cumm (0.0-0.09); Absolute Basophil Count 0.08 k/cumm (0.0-0.2); Absolute Eosinophil Count 0.23 k/cumm (0.0-0.7); Absolute Lymphocyte Count 0.76 k/cumm (1.2-3.4); Absolute Monocyte Count 0.88 k/cumm (0.11-0.7); Absolute Neutrophil Count 5.25 k/cumm (1.2-6.7); Basophils % 1.1; Eosinophils % 3.2; HCT 29.4 % (36.0-46.0); HGB 9.3 g/dL (12.0-15.5); Immature Grans % 0.4; Lymphocytes % 10.5; Mean Corp. HGB Concentration 31.6 g/dL (32.0-36.0); Mean Corpuscular Hemoglobin 28.3 pg (27.0-33.0); Mean Corpuscular Volume 89.4 fL (80-95); Mean Platelet Volume 11.2 fL (8.0-11.0); Monocytes % 12.2; Neutrophils % 72.6; Platelet Count 215 x1000/uL (130-400); RBC 3.29 m/cumm (4.00-5.20); RBC Distribution Width 13.4 % (11.7-14.6); White Blood Cell Count 7.23 k/cumm (4.4-10.8)
[2018-12-31 08:25] LABS: Anion Gap 12.9 mmol/L (3-11); BUN 45 mg/dL (7-18); CO2 20.1 mmol/L (21.0-32.0); CREATININE 3.27 mg/dL (0.55-1.02); Calcium 10.9 mg/dL (8.5-10.1); Chloride 105 mmol/L (98-107); Estimated GFR 14.22 (mL/min/1.73m2); Glucose 87 mg/dL (70-100); Magnesium 2.1 mg/dL (1.8-2.4); Sodium 138 mmol/L (136-145)
[2018-12-31 11:15] VITALS: BP 159/69; PULSE 85; RESP 19; TEMP 36.8; O2SAT 92
--- NOTE | 2018-12-31 13:26 | PDOC.CMDIS ---
LACE Index Scoring Tool - Questions: Length of Stay (in days): 7 - 13 Acuity (Admit via E.D.?): Yes Comorbidities: Liver or Renal Disease E.D. Visits: 1 - Answers: Total Score: 14 Risk of Readmission: High Risk Care Management Discharge Reason for Hospitalization: Acute renal failure Discharge Plan: She was supposed to be discharged yesterday, but there were continuing problems with [place] [facility] After multiple calls again today by multiple people, have now learned appt for IR is tomorrow, Monday 01/01 at 9 am. She has friends who will transport her. Patient/Family Education Needs: RN to review d/c instructions re meds and activity levels with patient. She was able to verbalize reason for hospitalization.
--- NOTE | 2018-12-31 13:34 | CMDISCH_ITS ---
LACE Index Scoring Tool - Questions: Length of Stay (in days): 7 - 13 Acuity (Admit via E.D.?): Yes Comorbidities: Liver or Renal Disease E.D. Visits: 1 - Answers: Total Score: 14 Risk of Readmission: High Risk Care Management Discharge Reason for Hospitalization: Acute renal failure Discharge Plan: She was supposed to be discharged yesterday, but there were continuing problems with arranging for IR at [facility] [place]. After multiple calls again today by multiple people, have now learned appt for IR is tomorrow, Monday 01/01 at 9 am. She has friends who will transport her. Patient/Family Education Needs: RN to review d/c instructions re meds and activity levels with patient. She was able to verbalize reason for hospitalization.
--- NOTE | 2018-12-31 15:14 | DSE_ITS ---
Date of service: 12/31/18 Time of Service: 15:06 DS: Diagnosis Discharge Diagnosis (1) Acute renal failure: Status: Acute (2) Hypercalcemia: Status: Acute (3) Lytic lesion of bone on x-ray: Status: Acute (4) Adnexal mass: Status: Acute (5) Lung nodule: Status: Acute (6) Cardiomyopathy: Status: Acute Discharge Plan Disposition Patient Disposition: HOME Condition: Stable Discharge Details Reason For Visit: ENA, SUSPECTED MULTIPLE MYELOMA, ADNEXAL MASS Admit Date/Time: 12/24/18 13:02 Admit Provider: Camilla Beatty Attending Provider: Camilla Beatty Primary Care Provider: Naveed Mckinney Hospital Course Hospital Course: Jen Guevara is a very pleasant 63 year old female with a past medical history significant for hypertension, hyperlipidemia and cardiomyopathy who presented to the emergency department on 12/24/2018 after being seen in her primary care providers office and found to have persistently elevated cr eatinine. At the time that she presented to the emergency department, her creatinine was as high as 5.61, her previous baseline was around 1. She presented to her primary care provider on December 20, 2018 with reports of a harsh barking cough and a 20 pound weight loss over the 4 months prior. She also reported poor appetite and worsening fatigue. In the emergency department she had a CT chest abdomen and pelvis which showed cholelithiasis with no ductal dilatation, colonic diverticulosis with no diverticulitis, multicystic left adnexal lesion, likely ovarian in origin, diffuse osseous lytic lesions, with concern for myeloma or metastatic disease, also a 1.8 cm well-circumscribed nodule in the left lingula. In addition to the acute renal failure, her labs were also notable for hypercalcemia. Emergency department provider, Dr. Mcneil, contacted hematology/oncology at [facility] and spoke with Dr. Lyn who made recommendations for labs to assess for multiple myeloma. Given the acute renal failure as well as the findings concerning for possible myeloma, she was admitted to the [facility] floor for further evaluation and management. Mrs. 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 Her most recent echocardiogram in August 2018 showed LVEF of 40-45% (which was improved from 1 month prior LVEF of 25-30%). She had previously been on Aldactone and DARIELA inhibitor which were stopped by her primary care provider prior to her presentation. Her lasix has been held in the setting of acute renal failure, she has remained euvolemic. Over the following several days, she received IV normal saline with improvement in her creatinine to 3.27 at the time of discharge, from a high of 5.61. She received Zometa in the emergency department with improvement of her serum calcium to 10.9, from a high of 13.8. Her hemoglobin and hematocrit remained stable, at the time of discharge her hemoglobin is 9.3, hematocrit 29.4 white blood cell count is normal at 7.23. Her case was discussed with [facility] again on 12/28/2018, after [facility] reviewed her record s, it was recommended that she have a bone marrow biopsy at the iliac crest in an attempt to determine the origin of the lytic lesions. She has been set up for a CT-guided biopsy on 01/01/2019 at 9 AM, she will need to be n.p.o. after midnight for the procedure. She will also have follow-up labs to include BMP and ionized calcium in 2 days time. Due to the finding of Multi-cystic left adnexal lesion on CT, she went on to have a pelvic ultrasound which showed a Complex, 5.1 cm. left adnexal lesion corresponding to the finding on the CT scan. She was seen by Dr. Green, who felt that this mass did represent a cyst and did not feel that it required further work-up at this time. Throughout her hospitalization, her biggest complaint was the harsh barking cough that was nonproductive. She was given a trial of nebulizer treatments to determine if this would help her cough and it was successful. She was started on a Symbicort inhaler which will be discharged home on. She is eager for discharge home and looking forward to having the biopsy so a plan of care can be developed. She will be followed by her primary care provider as well as [facility] hematology/oncology, with a specialty to be determined when the biopsy results are available. She will follow up with her PCP as scheduled on 01/06/19. She will follow up with [facility] for a CT-guided biopsy on 01/01/2019 at 0900. Home Meds and New Rx's Prescriptions: New acetaminophen [Tylenol] 325 mg Tablet 325 - 650 mg PO Q4H PRN PRNQty: 0 RF: 0 Symbicort 160-4.5 mcg/actuation HFA aerosol inhaler 2 puff IH BID Qty: 10.2 RF: 0 Continued Multi Complete with Iron 1 EACH tablet 1 tab-cap PO DAILY RF: 0 ascorbic acid (vitamin C) [Vitamin C] 500 MG tablet 500 mg PO DAILY RF: 0 vitamin E 400 UNIT capsule 400 unit PO DAILY Qty: 1 RF: 0 garlic 1 EACH capsule 1 ea PO DAILY RF: 0 omega-3 fatty acids-fish oil [Fish Oil] 1 EACH capsule 1 ea PO DAILY RF: 0 Metoprolol Succinate 50 MG TAB.ER.24H 100 mg PO DAILY Qty: 90 RF: 4 cyanocobalamin (vitamin B-12) [Vitamin B-12] 100 mcg Tablet 100 mcg PO DAILY RF: 0 thiamine HCl (vitamin B1) [Vitamin B-1] 100 mg Tablet 100 mg PO DAILY RF: 0 Discontinued furosemide [Lasix] 20 MG tablet 20 mg PO DAILY RF: 0 Discharge Instructions Instructions: Dilated Cardiomyopathy (GEN), Acute Kidney Injury (GEN), Renal Failure Diet (GEN), Hypercalcemia (GEN), Bone Biopsy (GEN) Additional Instructions: Follow up with [facility] on If you have a fever, Shortness of breath, Chest pain, or leg pain go to the emergency department immediately. Stand Alone Forms: Nursing Discharge Form Referrals: Naveed Mckinney MD [Primary Care Provider] - 01/06/19 11:30 am Activity:: Activity as Tolerated Equipment/Supplies:: No Equipment Needed Diet:: Renal diet Discharge Orders Other Ambulatory Orders: Ionized Calcium (Routine) Timeframe: 2 Days Location: Laboratory Nonpatient Ordered By: Xiao Walden Basic Metabolic Panel (Routine) Location: Determined by Patient Ordered By: Xiao Walden Exam Narrative Exam Narrative: General: Sitting up in the chair, alert and oriented x3, pleasant and cooperative, in no acute distress. HEENT: Normocephalic, atraumatic, pupils equal round, extraocular movements intact, mucous membranes moist. Neck: Supple, no JVD, no lymphadenopathy. Respiratory: Respirations even and unlabored, lung sounds clear to auscultation throughout. Speaks in complete sentences with no shortness of breath. Harsh, barking cough noted. Cardiovascular: Heart has regular rate and rhythm, no murmur appreciated. Gastrointestinal: +bowel sounds, soft, nontender on palpation, no masses appreciated. Extremities: no clubbing, cyanosis or edema. Pedal pulses palpable bilaterally. DS: Data Vitals/I&O Vitals and I&O: Vital Signs Temperature 36.8 C 12/31/18 11:15 Temperature Source Tympanic 12/31/18 11:15 Pulse 85 12/31/18 11:15 Pulse Rhythm Regular 12/31/18 10:37 Pulse 70 12/24/18 14:00 Respiratory Rate 12/31/18 11:15 Respiratory Effort 12/31/18 10:37 Respiratory Depth Normal 12/31/18 10:37 Respiratory Pattern Normal 12/31/18 10:37 Blood Pressure 159/69 H 12/31/18 11:15 Blood Pressure Position Sitting 12/24/18 10:25 Pulse Oximetry 92 L 12/31/18 11:15 Oxygen Delivery Method Room Air 12/31/18 11:15 Oxygen Flow Rate 0 12/31/18 11:15 Pain Level 0 12/31/18 13:06 Comment 12/30/18 14:02 Intake & Output 12/30/18 12/31/18 12/31/18 23:59 11:59 23:59 Intake Total 240 / 2380 1040 / 1280 240 / 1280 Output Total 100 / 3100 700 / 700 Balance 140 / -720 340 / 580 240 / 580 Weight 83 kg Intake: Oral 240 / 1380 1040 / 1280 240 / 1280 Output: Urine 100 / 3100 700 / 700 Other: Urine Color Pale Yellow Yellow Urine Appearance Clear Clear Urine Odor None Voiding Methods Toilet Toilet Completed studies during hospitalization [Text1]: 12/24/18: CT SCAN OF THE CHEST, ABDOMEN AND PELVIS: A noncontrast examination was performed. No priors. CT SCAN OF THE ABDOMEN AND PELVIS: Lack of IV contrast does limit elevation of the abdominal and pelvic organs. The unenhanced liver appears grossly unremarkable. There are stones seen within the gallbladder. No biliary ductal dilatation is present. The unenhanced pancreas, spleen and adrenal glands are grossly unremarkable. The kidneys show no evidence of nephrolithiasis or obstructive uropathy. The urinary bladder is intact. The reproductive organs are visualized. There are several hypodense lesions seen in the left adnexa. The largest measures 4.8 cm. These likely are ovarian in origin. There is diverticulosis seen in the sigmoid colon but no evidence of acute diverticulitis. There is a round well circumscribed fat density lesion in the region of the cecum which may represent a lipoma. No solid mass is seen in the bowel. No findings to suggest an acute inflammatory or infectious process. No findings of an acute appendicitis or bowel obstruction. The abdominal aorta is intact. No significant abdominal or pelvic adenopathy, ascites or pneumoperitoneum is present. A trace amount of fluid is seen in the cul-de-sac which is likely physiologic. There are numerous lucencies seen in the bones. Differential considerations include myeloma vs metastatic disease. IMPRESSION: 1. Cholelithiasis. No biliary ductal dilatation. 2. Colonic diverticulosis but no evidence of acute diverticulitis. 3. Multi-cystic left adnexal lesion. These are likely ovarian in origin. Pelvic ultrasound may be obtained for further evaluation. 4. Lytic lesions seen within the bones. Differential considerations include myeloma or metastatic disease. Follow up as clinically appropriate. CT SCAN OF THE CHEST: The thoracic aorta is of normal caliber. The heart size is enlarged mildly. No significant pericardial effusion is seen. Coronary artery calcifications are present. No significant thoracic adenopathy is appreciated. There is a 1.8 cm noncalcified pulmonary nodule in the left lingula. This can be visualized on the chest x-ray from 12/20/18. There does appear to be some fat density within the nodule. There is an internal of minus 29.9 Hounsfield units. Scattered reticular nodular infiltrates are seen in the lung apices bilaterally. No areas of consolidation are seen in the lungs. Ground glass opacities are seen in the lung bases. The tracheobronchial tree is unremarkable. The osseous structures again show multiple lucencies. This may represent metastatic disease vs myeloma. IMPRESSION: 1. Diffuse osseous lytic lesions. Differential considerations include myeloma or metastatic disease. 2. 1.8 cm well circumscribed nodule in the left lingula. There is some lingula fat attenuation. Hamartoma should be considered. Other benign or malignant lesion should also be considered for further evaluation. 3. Reticular nodular disease in the lung apices. Inflammatory or infectious process should be considered. PELVIC ULTRASOUND: Transabdominal and transvaginal examination was performed. Comparison is made with CT scan performed the same day. The uterus measures 7.1 cm. long by 3.3 cm. AP by 4.0 cm. transverse. The endometrial stripe is within normal limits at .6 cm. There is a 1 by 1 by 0.9 cm., hypoechoic area in the anterior body of the uterus, likely reflecting a fibroid. The right ovary was not visualized. No cystic or solid lesion is seen in the right adnexa. In the left adnexa, there is a 4.5 by 2.7 by 5.1 cm., hypoechoic mass. No internal blood flow is seen. There is some posterior acoustic enhancement suggesting a cystic quality. There may be an internal septation noted. There is a small amount of free fluid in the pelvis. IMPRESSION: 1. Complex, 5.1 cm. left adnexal lesion corresponding to the finding on the CT scan. The findings may represent a complex cyst. Detail is limited due to patient positioning and body habitus. Gynecologic consult is recommended. MRI or direct visualization should be considered for further evaluation. 2. Findings suggestive of an intramural uterine fibroid. Labs on day of discharge: Labs from last 24 hours 12/31/18 12/31/18 12/30/18 07:36 07:36 15:48 WBC 7.23 RBC 3.29 L Hgb 9.3 L Hct 29.4 L MCV 89.4 MCH 28.3 MCHC 31.6 L RDW 13.4 Plt Count 215 MPV 11.2 H Immature Gran % 0.4 Neutrophils % 72.6 Lymphocytes % 10.5 Monocytes % 12.2 Eosinophils % 3.2 Basophils % 1.1 Absolute Neutrophils 5.25 Absolute Lymphocytes 0.76 L Absolute Monocytes 0.88 H Absolute Eosinophils 0.23 Absolute Basophils 0.08 Sodium 138 Potassium 4.0 Chloride 105 Carbon Dioxide 20.1 L Anion Gap 12.9 H BUN 45 H Creatinine 3.27 H Estimated GFR/1.73 m2 14.22 Glucose 87 Uric Acid 5.8 Calcium 10.9 H Magnesium 2.1 PFSH Medical History Dilated cardiomyopathy (Acute) Essential hypertension Surgical History Appendectomy Diagnostic Laproscopy (~1980) Oophrectomy, Left Family History Mother Dementia Father Prostate cancer Social History Smoking/Tobacco Use Status: Never Alcohol Intake: never Drug use: Never Substance use type: does not use Do you feel safe at home: Yes Do you feel safe in your relationship?: Yes
[2018-12-31 15:15] VITALS: BP 157/73; PULSE 75; RESP 20; TEMP 36.6; O2SAT 95
--- NOTE | 2018-12-31 16:21 | CHAPLAIN ---
When I visited with Jen this morning, it was the first time I was there when there were no other visitors in with. She told me that she was told yesterday that she is being scheduled for a biopsy to see if she has bone or blood cancer. We talked about life feeling very unfair at times. I offered a prayer with Jen before leaving. Jen's was killed in an accident several years ago, and one of her sons drowned a few years later. Her daughter Ayana lives in [place] and her son, Jerald, in [place]. She said she has told them both about the biopsy. Ayana is coming home this weekend for [facility]. And Jerald will be home at the end of the month for a few days. 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 Her on site soil evaluator, Rev. Jolanta Granado has been into visit .
== END 2018-12-31 17:25 | disposition home or self-care (01) | DRG 683 ==
LOC: ER 13:27 → MS 14:31
PROVIDERS: Internal Medicine; Nurse Practitioner; Nurse Practitioner Family; Admitting Provider Internal Medicine; Emergency Provider Emergency Medicine; PCP General Practice; Visit Provider Internal Medicine
DX: N17.9 Acute kidney failure, unspecified (principal); I42.0 Dilated cardiomyopathy; E83.52 Hypercalcemia; R05 Cough; M89.9 Disorder of bone, unspecified; N94.9 Unspecified condition associated with female genital organs and menstrual cycle; I10 Essential (primary) hypertension; E78.5 Hyperlipidemia, unspecified; N83.202 Unspecified ovarian cyst, left side
CPT/HCPCS: 36415; 71250; 80048; 80053; 80076; 84156; 84166; 85027; 86304; 86335; 93005; 94640; 96360; 96361; 99222; 99232; 99233; 99239; 99285; J3489; 74176; 76830; 76856; 81003; 81015; 82232; 82330; 83615; 83735; 83883; 84165; 84550; 85025; 93010; J1644; J7620

== ENCOUNTER 2019-01-02 09:59 | Outpatient (CLI) | payer BC, SELFPAY ==
[2019-01-02 11:36] LABS: Anion Gap 11.2 mmol/L (3-11); BUN 55 mg/dL (7-18); CO2 23.8 mmol/L (21.0-32.0); Calcium 11.4 mg/dL (8.5-10.1); Chloride 105 mmol/L (98-107); Estimated GFR 12.81 (mL/min/1.73m2); Glucose 83 mg/dL (70-100); Potassium 4.3 mmol/L (3.5-5.1); Sodium 140 mmol/L (136-145)
[2019-01-02 12:20] LABS: CREATININE 3.58 mg/dL (0.55-1.02)
[2019-01-02 17:07] LABS: Ionized Calcium 1.45 mmol/L (1.12-1.32)
== END 2019-01-02 10:19 ==
PROVIDERS: PCP General Practice; Visit Provider Nurse Practitioner
DX: M89.9 Disorder of bone, unspecified (principal); N17.9 Acute kidney failure, unspecified
CPT/HCPCS: 36415; 80048; 82330

== ENCOUNTER 2019-01-06 07:18 | Outpatient (CLI) | payer BC, SELFPAY ==
[2019-01-06 08:23] LABS: Anion Gap 13.2 mmol/L (3-11); BUN 55 mg/dL (7-18); CO2 22.8 mmol/L (21.0-32.0); CREATININE 3.49 mg/dL (0.55-1.02); Calcium 10.1 mg/dL (8.5-10.1); Chloride 104 mmol/L (98-107); Estimated GFR 13.19 (mL/min/1.73m2); Glucose 150 mg/dL (70-100); Potassium 4.2 mmol/L (3.5-5.1); Sodium 140 mmol/L (136-145)
== END 2019-01-06 07:38 ==
PROVIDERS: PCP General Practice; Visit Provider General Practice
DX: E83.52 Hypercalcemia (principal); N19 Unspecified kidney failure
CPT/HCPCS: 36415; 80048

== ENCOUNTER 2019-01-17 15:54 | Outpatient (CLI) | payer BC, SELFPAY ==
[2019-01-17 16:59] LABS: Anion Gap 8.9 mmol/L (3-11); BUN 43 mg/dL (7-18); CO2 27.1 mmol/L (21.0-32.0); CREATININE 3.27 mg/dL (0.55-1.02); Chloride 100 mmol/L (98-107); Estimated GFR 14.22 (mL/min/1.73m2); Potassium 4.1 mmol/L (3.5-5.1); Sodium 136 mmol/L (136-145)
[2019-01-17 17:50] LABS: Calcium 12.6 mg/dL (8.5-10.1)
== END 2019-01-17 16:14 ==
PROVIDERS: PCP General Practice; Visit Provider General Practice
DX: E83.52 Hypercalcemia (principal); I50.9 Heart failure, unspecified
CPT/HCPCS: 36415; 80051; 84520; 82310; 82565

== ENCOUNTER 2019-01-20 07:03 | Outpatient (CLI) | payer BC, SELFPAY ==
[2019-01-20 08:23] LABS: Anion Gap 9.5 mmol/L (3-11); BUN 43 mg/dL (7-18); CO2 26.5 mmol/L (21.0-32.0); CREATININE 3.39 mg/dL (0.55-1.02); Calcium 11.4 mg/dL (8.5-10.1); Chloride 106 mmol/L (98-107); Estimated GFR 13.64 (mL/min/1.73m2); Potassium 3.7 mmol/L (3.5-5.1); Sodium 142 mmol/L (136-145)
== END 2019-01-20 07:23 ==
PROVIDERS: PCP General Practice; Visit Provider General Practice
DX: E83.52 Hypercalcemia (principal); I50.9 Heart failure, unspecified
CPT/HCPCS: 36415; 80051; 84520; 82310; 82565

== ENCOUNTER 2019-01-28 07:01 | Outpatient (CLI) | payer BC, SELFPAY ==
[2019-01-28 08:15] LABS: Anion Gap 11.2 mmol/L (3-11); BUN 45 mg/dL (7-18); CO2 24.8 mmol/L (21.0-32.0); CREATININE 3.28 mg/dL (0.55-1.02); Chloride 105 mmol/L (98-107); Estimated GFR 14.17 (mL/min/1.73m2); Potassium 3.9 mmol/L (3.5-5.1); Sodium 141 mmol/L (136-145)
[2019-01-28 12:57] LABS: Calcium 12.5 mg/dL (8.5-10.1)
== END 2019-01-28 07:21 ==
PROVIDERS: PCP General Practice; Visit Provider General Practice
DX: E83.52 Hypercalcemia (principal)
CPT/HCPCS: 36415; 80051; 84520; 82310; 82565

== ENCOUNTER 2019-02-03 07:05 | Outpatient (CLI) | payer BC, SELFPAY ==
[2019-02-03 08:08] LABS: Anion Gap 11.4 mmol/L (3-11); BUN 55 mg/dL (7-18); CO2 23.6 mmol/L (21.0-32.0); CREATININE 3.14 mg/dL (0.55-1.02); Chloride 105 mmol/L (98-107); Estimated GFR 14.91 (mL/min/1.73m2); Potassium 3.4 mmol/L (3.5-5.1); Sodium 140 mmol/L (136-145)
[2019-02-03 10:07] LABS: Calcium 12.4 mg/dL (8.5-10.1)
== END 2019-02-03 07:25 ==
PROVIDERS: PCP General Practice; Visit Provider General Practice
DX: E83.52 Hypercalcemia (principal)
CPT/HCPCS: 36415; 80051; 84520; 82310; 82565

== ENCOUNTER 2019-02-06 15:55 | Emergency (ER) | payer BC, SELFPAY ==
[2019-02-06] VITALS (71 sets, daily range): BP systolic 91–148; BP diastolic 67–103; PULSE 79–144; RESP 18–24; TEMP 36.8; O2SAT 96–99
--- NOTE | 2019-02-06 16:04 | DI.RAD_ITS ---
SYMPTOM/DIAGNOSIS: RAPID HEART RATE PA AND LATERAL CHEST: Comparison is made with 12/20/18. The heart is again noted to be enlarged, unchanged. There are again noted to be mildly increased interstitial markings throughout both lungs. No superimposed infiltrate, effusion or definite pulmonary edema is seen. A nodule is again noted in the left lung just above the heart border. A fatty density lesion was seen on CT of the chest of 12/24/18. IMPRESSION: Stable cardiomegaly and interstitial changes.
[2019-02-06 16:21] LABS: Abs Immature Grans 0.21 k/cumm (0.0-0.09); Absolute Basophil Count 0.01 k/cumm (0.0-0.2); Absolute Eosinophil Count 0.01 k/cumm (0.0-0.7); Absolute Lymphocyte Count 0.85 k/cumm (1.2-3.4); Basophils % 0.1; Eosinophils % 0.1; HCT 32.4 % (36.0-46.0); HGB 10.2 g/dL (12.0-15.5); Immature Grans % 1.6; Lymphocytes % 6.3; Mean Corp. HGB Concentration 31.5 g/dL (32.0-36.0); Mean Corpuscular Hemoglobin 27.9 pg (27.0-33.0); Mean Corpuscular Volume 88.8 fL (80-95); Mean Platelet Volume 10.2 fL (8.0-11.0); Monocytes % 4.5; Neutrophils % 87.4; Platelet Count 286 x1000/uL (130-400); RBC 3.65 m/cumm (4.00-5.20); RBC Distribution Width 13.6 % (11.7-14.6); White Blood Cell Count 13.42 k/cumm (4.4-10.8)
[2019-02-06 16:30] LABS: Absolute Neutrophil Count 11.73 k/cumm (1.2-6.7)
[2019-02-06] MEDS: Aspirin 81 MG CHEW 324 MG CH (16:33)
[2019-02-06] MEDS: dilTIAZem 25 MG/5 ML VIAL 10 MG IVP ×2 (16:34→19:10)
[2019-02-06 16:37] LABS: ALT 36 U/L (12-78); AST 19 U/L (15-37); Albumin 3.1 g/dL (3.4-5.0); Alkaline Phosphatase 72 U/L (46-116); BUN 59 mg/dL (7-18); Bilirubin, Total 0.3 mg/dL (0.2-1.0); CREATININE 2.82 mg/dL (0.55-1.02); Calcium 11.3 mg/dL (8.5-10.1); Chloride 101 mmol/L (98-107); Estimated GFR 16.87 (mL/min/1.73m2); Glucose 164 mg/dL (70-100); Potassium 4.4 mmol/L (3.5-5.1); Sodium 134 mmol/L (136-145); Total Protein 7.5 g/dL (6.4-8.2); Troponin I 0.05 ng/mL (0.00-0.06)
[2019-02-06 16:41] LABS: Prothrombin Time 9.9 sec (9.3-11.0)
[2019-02-06 16:43] LABS: Magnesium 2.3 mg/dL (1.8-2.4)
--- NOTE | 2019-02-06 17:05 | W.ED.GENAD ---
Discharge Plan Disposition Patient Disposition: HOME Condition: Stable Discharge Details Chief Complaint: GenMedical Clinical Impression: Atrial fibrillation with RVR Primary Care Provider: Naveed Mckinney ED Provider: Michael Vyas Home Meds and New Rx's Prescriptions: New diltiazem HCl 180 mg capsule,extended release 24hr 180 mg PO DAILY Qty: 30 RF: 0 Eliquis 2.5 mg tablet 2.5 mg PO BID Qty: 60 RF: 0 Continued prednisone 20 mg tablet 60 mg PO DAILY RF: 0 Multi Complete with Iron 1 EACH tablet 1 tab-cap PO DAILY RF: 0 ascorbic acid (vitamin C) [Vitamin C] 500 MG tablet 500 mg PO DAILY RF: 0 vitamin E 400 UNIT capsule 400 unit PO DAILY Qty: 1 RF: 0 garlic 1 EACH capsule 1 ea PO DAILY RF: 0 omega-3 fatty acids-fish oil [Fish Oil] 1 EACH capsule 1 ea PO DAILY RF: 0 Metoprolol Succinate 50 MG TAB.ER.24H 100 mg PO DAILY Qty: 90 RF: 4 cyanocobalamin (vitamin B-12) [Vitamin B-12] 100 mcg Tablet 100 mcg PO DAILY RF: 0 thiamine HCl (vitamin B1) [Vitamin B-1] 100 mg Tablet 100 mg PO DAILY RF: 0 acetaminophen [Tylenol] 325 mg Tablet 325 - 650 mg PO Q4H PRN PRNQty: 0 RF: 0 Discharge Instructions Instructions: Atrial Fibrillation (ED) Additional Instructions: We discussed your case with the cardiologits at [facility] and [facility] and felt if your rate could be controlled you did not require admission. We were able to control your rate with oral diltiazem you should be contacted with an appointment for cardiology. 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 Patient was sent over to the ED by her primary care provider for new onset A. fib. Patient states that she noticed her heart rate being fast 3 days ago when she checked her blood pressure. Patient report was received from Dr. Mckinney primary care provider whom states that patient has recent new diagnosis of sarcoidosis and has cardiomyopathy possibly secondary to the sarcoidosis. In the office EKG noted some ST depression in V5 and 6. Patient is asymptomatic denies chest pain shortness of breath confusion neurological changes or swelling to the legs. Physical exam shows a irregular irregular rhythm otherwise no pedal edema, clear lung sounds throughout, stable alert and oriented patient with no specific findings. EKG was performed and does show A. fib with RVR. This EKG was reviewed with Dr. Ortega. Plan to check labs, chest x-ray, and give diltiazem pending results. Review of results show negative initial troponin slightly low sodium but otherwise nondiagnostic CMP, and CBC showing a nonspecific leukocytosis otherwise shows a baseline anemia. Patient continued to have heart rate in the 120s so patient given additional doses up to total of 25 of diltiazem. Patient did have some rate control in the low 100s and 90s at rest. Patient's BNP was elevated at 24,000 which given her cardiomyopathy no pulmonary edema no pedal edema I feel that this may be at patient's baseline given previous numbers being further increase beyond that. Plan to admit patient for observation and further cardiac work-up. Unfortunately our facility has no telemetry available so Enriqueta and alondra were both contacted whom denied acceptance of the patient. Did contact [facility] whom said that they were on emergency transfers only but did state it was reasonable to observe patient but if patient was will unwilling to be transferred to nearest appropriate facility that as long as patient was rate controlled that we may start patient on Eliquis and have close follow-up with cardiology. Patient given metoprolol to try to further control rate Patient was reassessed and with activity had heart rate in the 140s and then at rest had fluctuation from the 90s to the mid 120s. Given this patient was put on a diltiazem drip. Did also attempt to contact [facility] as well for possible admission to their facility. Spoke to Dr. Acosta at [facility] whom recommended patient to be taken off or reduce diltiazem drip and give metoprolol IV push 5 mg at a time to attempt to further rate control patient while at rest. They were informed that patient was not able to be rate controlled on oral medications. They stated that they were only on a [id number] basis and would not admit the patient to their cardiology service and they had no medical/hospitalist beds available. Pending transfer patient patient was signed out to Dr. Chinmay Vyas for further management of A. fib with RVR disposition and potential transfer. <Michael Vyas MD - Last Filed: 02/07/19 05:24> ECG Data Attestation: I personally reviewed and interpreted this ECG (s) as follows: Prior ECG tracings: not available for review Interpretation: 1st ekg shows afib with rapid rates in the 130's, qtc 460, mild lateral st depressions 2nd ekg shows afib with rates in the 90's, qtc 432, lateral st depressions unchanged from 1st ekg HPI <Kei Hernandes NP - Last Filed: 02/07/19 22:02> General Mode of arrival: ambulatory. Date/Time Provider Initiated Documentation: 02/06/19 16:00. Limitations to Documentation: no limitations. Information obtained by: patient, RN/MD, RN notes reviewed and old records reviewed. History of Present Illness 63 year old F presents to the emergency department with the chief complaint of Rapid heart rate, Quality is described as other (Denies pain or discomfort), Patient started experiencing this day(s) (3) No relieving factors improve symptom(s), No exacerbating factors reported . Patient notes no other symptoms.. Patient did receive the following treatments prior to arrival, none Related Data Home Medications Medication Instructions Recorded Confirmed Multi Complete with Iron 1 tab-cap PO DAILY tab-cap 05/15/13 02/06/19 ascorbic acid (vitamin C) [Vitamin 500 mg PO DAILY 05/15/13 02/06/19 C] vitamin E 400 unit PO DAILY #1 05/15/13 02/06/19 garlic 1 ea PO DAILY 05/21/14 02/06/19 omega-3 fatty acids-fish oil [Fish 1 ea PO DAILY 06/10/15 02/06/19 Oil] cyanocobalamin (vitamin B-12) 100 mcg PO DAILY 12/24/18 02/06/19 [Vitamin B-12] thiamine HCl (vitamin B1) [Vitamin 100 mg PO DAILY 12/24/18 02/06/19 B-1] acetaminophen [Tylenol] 325 - 650 mg PO Q4H PRN PRN #0 tab 12/31/18 02/06/19 prednisone 20 mg tablet 60 mg PO DAILY tab 01/31/19 02/06/19 apixaban [Eliquis] 2.5 mg PO BID #60 tab 02/07/19 diltiazem HCl 180 mg PO DAILY #30 cap 02/07/19 Previous Rx's Medication Instructions Recorded acetaminophen [Tylenol] 325 - 650 mg PO Q4H PRN PRN #0 tab 12/31/18 apixaban [Eliquis] 2.5 mg PO BID #60 tab 02/07/19 diltiazem HCl 180 mg PO DAILY #30 cap 02/07/19 Allergies Allergy/AdvReac Type Severity Reaction Status Date / Time feathers Allergy Intermediate Watery Unverified 02/06/19 16:22 eyes, sneezing Dust Allergy Intermediate Watery Uncoded 02/06/19 16:22 eyes, sneezing, Environmental Allergy Intermediate Running Uncoded 02/06/19 16:22 nose, watery eyes, sneezing General Stated Complaint: GenMedical ANTOLIN: 2 Review of Systems <Kei Hernandes NP - Last Filed: 02/07/19 22:02> Constitutional Denies chills, Denies fever(s) and Denies malaise Cardiovascular Reports as per HPI, Denies chest pain, Denies chest pain with activity, Denies syncope, Reports irregular heart rhythm and Denies dyspnea Respiratory Denies cough, Denies hemoptysis and Denies dyspnea Gastrointestinal Denies abdominal pain, Denies nausea and Denies vomiting Neurologic Denies syncope, Denies sensory deficit and Denies other (Denies any neurological changes) Psychiatric Denies anxiety [facility] <Kei Hernandes NP - Last Filed: 02/07/19 22:02> Medical History Dilated cardiomyopathy (Acute) Essential hypertension Surgical History Appendectomy Diagnostic Laproscopy (~1980) Oophrectomy, Left Family History Mother Dementia Father Prostate cancer Social History Smoking/Tobacco Use Status: Never Alcohol Intake: never Drug use: Never Substance use type: does not use Do you feel safe at home: Yes Do you feel safe in your relationship?: Yes Exam <Kei Hernandes NP - Last Filed: 02/07/19 22:02> Const General: cooperative, healthy appearing, comfortable, no acute distress, not diaphoretic and not ill appearing Nutritional Appearance: average body habitus Orientation: alert, awake and oriented x3 Limitations: mental status not altered Neck Neck: normal visual inspection, full ROM, trachea midline, supple and no anterior neck swelling Thyroid: thyroid normal Carotids: normal carotid upstroke and no bruits Chest Chest: normal inspection of the chest Resp Effort & Inspection: normal respiratory effort and able to speak in complete sentences Auscultation: clear to auscultation bilaterally Cardio Jugular venous pressure: no JVD Palpation: normal PMI Rate: tachycardic Rhythm: abnormal rhythm irregularly irregular Heart Sounds: S1 normal, S2 normal, no click, no gallops, no murmurs and no rubs Bruits: no abdominal aortic bruits and no carotid bruits Pulses: radial pulses present bilaterally 2+ Neuro General: alert, awake, oriented x3, tone normal and moves all extremities Extrem General: no pedal edema Course <Kei Hernandes NP - Last Filed: 02/07/19 22:02> Vital Signs Temperature 36.8 C 02/06/19 16:20 Pulse 124 H 02/06/19 16:20 Respiratory Rate 18 02/06/19 16:20 Pulse Oximetry 96 02/06/19 16:20 Temperature 36.8 C 02/06/19 16:20 Temperature Source Skin 02/06/19 16:20 Pulse 141 H 02/06/19 16:34 Respiratory Rate 18 02/06/19 16:20 Respiratory Effort 02/06/19 16:43 Blood Pressure 132/102 H 02/06/19 16:37 Pulse Oximetry 96 02/06/19 16:20 Oxygen Delivery Method Room Air 02/06/19 16:20 Oxygen Flow Rate 0 02/06/19 16:20 Pain Level 0 02/06/19 16:20 Lab/Test Results Lab/Test Results: Laboratory Tests Range/Units 02/06/19 02/06/19 02/06/19 16:16 16:16 16:16 WBC (4.4-10.8) k/cumm RBC (4.00-5.20) m/cumm Hgb (12.0-15.5) g/dL Hct (36.0-46.0) % MCV (80-95) fL MCH (27.0-33.0) pg MCHC (32.0-36.0) g/dL RDW (11.7-14.6) % Plt Count (130-400) x1000/uL MPV (8.0-11.0) fL Immature Gran % Neutrophils % Lymphocytes % Monocytes % Eosinophils % Basophils % Absolute Neutrophils (1.2-6.7) k/cumm Absolute Lymphocytes (1.2-3.4) k/cumm Absolute Monocytes (0.11-0.7) k/cumm Absolute Eosinophils (0.0-0.7) k/cumm Absolute Basophils (0.0-0.2) k/cumm PT (9.3-11.0) sec 9.9 INR (0.9-1.1) 1.0 APTT (21.0-31.4) sec 21.0 Sodium (136-145) mmol/L 134 L Potassium (3.5-5.1) mmol/L 4.4 Chloride (98-107) mmol/L 101 Carbon Dioxide (21.0-32.0) mmol/L 21.0 Anion Gap (3-11) mmol/L 12.0 H BUN (7-18) mg/dL 59 H Creatinine (0.55-1.02) mg/dL 2.82 H Estimated GFR/1.73 m2 (mL/min/1.73m2) 16.87 Glucose (70-100) mg/dL 164 H Calcium (8.5-10.1) mg/dL 11.3 H Magnesium (1.8-2.4) mg/dL 2.3 Total Bilirubin (0.2-1.0) mg/dL 0.3 AST (15-37) U/L 19 ALT (12-78) U/L 36 Alkaline Phosphatase (46-116) U/L 72 Troponin I (0.00-0.06) ng/mL 0.05 NT-Pro-B Natriuret Pep ( - 299) pg/mL 33697 H Total Protein (6.4-8.2) g/dL 7.5 Albumin (3.4-5.0) g/dL 3.1 L Range/Units 02/06/19 16:16 WBC (4.4-10.8) k/cumm 13.42 H RBC (4.00-5.20) m/cumm 3.65 L Hgb (12.0-15.5) g/dL 10.2 L Hct (36.0-46.0) % 32.4 L MCV (80-95) fL 88.8 MCH (27.0-33.0) pg 27.9 MCHC (32.0-36.0) g/dL 31.5 L RDW (11.7-14.6) % 13.6 Plt Count (130-400) x1000/uL 286 MPV (8.0-11.0) fL 10.2 Immature Gran % 1.6 Neutrophils % 87.4 Lymphocytes % 6.3 Monocytes % 4.5 Eosinophils % 0.1 Basophils % 0.1 Absolute Neutrophils (1.2-6.7) k/cumm 11.73 H Absolute Lymphocytes (1.2-3.4) k/cumm 0.85 L Absolute Monocytes (0.11-0.7) k/cumm 0.60 Absolute Eosinophils (0.0-0.7) k/cumm 0.01 Absolute Basophils (0.0-0.2) k/cumm 0.01 PT (9.3-11.0) sec INR (0.9-1.1) APTT (21.0-31.4) sec Sodium (136-145) mmol/L Potassium (3.5-5.1) mmol/L Chloride (98-107) mmol/L Carbon Dioxide (21.0-32.0) mmol/L Anion Gap (3-11) mmol/L BUN (7-18) mg/dL Creatinine (0.55-1.02) mg/dL Estimated GFR/1.73 m2 (mL/min/1.73m2) Glucose (70-100) mg/dL Calcium (8.5-10.1) mg/dL Magnesium (1.8-2.4) mg/dL Total Bilirubin (0.2-1.0) mg/dL AST (15-37) U/L ALT (12-78) U/L Alkaline Phosphatase (46-116) U/L Troponin I (0.00-0.06) ng/mL NT-Pro-B Natriuret Pep ( - 299) pg/mL Total Protein (6.4-8.2) g/dL Albumin (3.4-5.0) g/dL Sign Out <Kei Hernandes NP - Last Filed: 02/07/19 22:02> Sign Out Data: Sign Out Comment: Patient signed out Dr. Chinmay Vyas for transfer and admission of patient due to A. fib with RVR requiring diltiazem drip Last updated by Kei Hernandes NP at 02/06/19 23:59
--- NOTE | 2019-02-06 17:11 | DI.VRAD_ITS ---
EXAM: XR Chest, 2 Views EXAM DATE/TIME: 02/06/2019 4:07 PM CLINICAL HISTORY: 63 years old, female; Signs and symptoms; Other: Rapid heart rate TECHNIQUE: Imaging protocol: XR of the chest, 2 views. COMPARISON: CR XR CHEST 2V PA LATERAL 12/20/2018 10:08 AM FINDINGS: Lungs: Mild prominence of the pulmonary interstitial markings. Pleural space: Unremarkable. No pleural effusion. No pneumothorax. Heart/Mediastinum: Mild cardiomegaly. Bones/joints: Degenerative changes of the thoracic spine without acute osseous abnormality. IMPRESSION: Mild cardiomegaly, mild prominence of the pulmonary interstitial markings. No real interval change from 12/20/2018 Dictated and Authenticated by: Pedro Luis Flowers MD. Ordering:ARIN Choudhury MD
[2019-02-06] MEDS: dilTIAZem 25 MG/5 ML VIAL 5 MG IVP (18:06)
--- NOTE | 2019-02-06 18:10 | NUR.NOTE ---
patient remedicated per MD order with 5mg diltizam Nursing Note:
[2019-02-06 19:57] LABS: Troponin I 0.06 ng/mL (0.00-0.06)
[2019-02-06] MEDS: Metoprolol 50 MG TAB PO (21:43)
--- NOTE | 2019-02-06 23:05 | NUR.NOTE ---
Nursing Note: pt eating dinner
[2019-02-06] MEDS: dilTIAZem 125 MG in Normal Saline 100 ML IV (23:21)
--- NOTE | 2019-02-06 23:25 | NUR.NOTE ---
Nursing Note: JULIANO Dhaliwal double checked and witness the mixture and start of the diltizem
[2019-02-07] VITALS (49 sets, daily range): BP systolic 120–148; BP diastolic 71–99; PULSE 66–113; RESP 24; O2SAT 90–99
[2019-02-07] MEDS: dilTIAZem 125 MG in Normal Saline 100 ML 7.5 MG IV (00:02)
[2019-02-07] MEDS: dilTIAZem 60 MG TAB PO (01:14)
[2019-02-07] MEDS: Apixaban 2.5 MG TAB PO (01:14)
--- NOTE | 2019-02-07 02:46 | NUR.NOTE ---
Nursing Note: pt ambulated to bathroom
[2019-02-07] MEDS: dilTIAZem CD 180 MG CAPCR PO (03:28)
--- NOTE | 2019-02-07 11:13 | PDOC.ERCMPRO ---
Care Management Progress Note 02/07-Dr. Vyas requested assistance with a cardiology f/u in two weeks for afib. [facility].
== END 2019-02-07 05:50 | disposition home or self-care (01) ==
PROVIDERS: Nurse Practitioner Family; Emergency Provider Emergency Medicine; PCP General Practice
DX: I48.0 Paroxysmal atrial fibrillation (principal); I10 Essential (primary) hypertension
CPT/HCPCS: 36415; 80053; 93005; 96365; 96366; 96376; 99285; 71046; 83735; 83880; 84484; 85025; 85610; 85730; 93010

== ENCOUNTER 2019-02-13 07:32 | Outpatient (CLI) | payer BC, SELFPAY ==
[2019-02-13 11:49] LABS: Anion Gap 9.5 mmol/L (3-11); BUN 60 mg/dL (7-18); CO2 23.5 mmol/L (21.0-32.0); CREATININE 2.52 mg/dL (0.55-1.02); Calcium 9.6 mg/dL (8.5-10.1); Chloride 105 mmol/L (98-107); Estimated GFR 19.21 (mL/min/1.73m2); Potassium 4.1 mmol/L (3.5-5.1); Sodium 138 mmol/L (136-145)
[2019-02-13 12:23] LABS: Glucose 210 mg/dL (70-100)
== END 2019-02-13 07:52 ==
PROVIDERS: PCP General Practice; Visit Provider General Practice
DX: D86.85 Sarcoid myocarditis (principal); E83.52 Hypercalcemia; Z79.899 Other long term (current) drug therapy
CPT/HCPCS: 36415; 80051; 82947; 84520; 82310; 82565

== ENCOUNTER 2019-02-20 07:23 | Outpatient (CLI) | payer BC, SELFPAY ==
[2019-02-20 12:31] LABS: BUN 49 mg/dL (7-18); CREATININE 2.27 mg/dL (0.55-1.02); Calcium 9.5 mg/dL (8.5-10.1); Chloride 106 mmol/L (98-107); Estimated GFR 21.67 (mL/min/1.73m2); Glucose 154 mg/dL (70-100); Potassium 4.6 mmol/L (3.5-5.1); Sodium 141 mmol/L (136-145)
== END 2019-02-20 07:43 ==
PROVIDERS: PCP General Practice; Visit Provider General Practice
DX: E10.9 Type 1 diabetes mellitus without complications (principal); D86.9 Sarcoidosis, unspecified
CPT/HCPCS: 36415; 80048

== ENCOUNTER 2019-02-21 09:10 | Outpatient (CLI) | payer BC, SELFPAY | END 2019-02-21 09:30 | PROVIDERS: PCP General Practice; Visit Provider Internal Medicine Cardiovascular Disease | DX: I42.9 Cardiomyopathy, unspecified (principal); I48.0 Paroxysmal atrial fibrillation; I10 Essential (primary) hypertension; E78.5 Hyperlipidemia, unspecified | CPT/HCPCS: 93005; 93010 ==

== ENCOUNTER 2019-03-24 07:25 | Outpatient (CLI) | payer BC, SELFPAY ==
[2019-03-24 08:36] LABS: Anion Gap 11.9 mmol/L (3-11); BUN 37 mg/dL (7-18); CO2 24.1 mmol/L (21.0-32.0); CREATININE 1.88 mg/dL (0.55-1.02); Calcium 8.5 mg/dL (8.5-10.1); Chloride 110 mmol/L (98-107); Estimated GFR 26.94 (mL/min/1.73m2); Glucose 81 mg/dL (70-100); Potassium 4.3 mmol/L (3.5-5.1); Sodium 146 mmol/L (136-145)
== END 2019-03-24 07:45 ==
PROVIDERS: PCP General Practice; Visit Provider General Practice
DX: I10 Essential (primary) hypertension (principal); E10.9 Type 1 diabetes mellitus without complications; E78.5 Hyperlipidemia, unspecified
CPT/HCPCS: 36415; 80048

== ENCOUNTER 2019-08-08 03:27 | Outpatient (CLI) | payer BC, SELFPAY ==
--- NOTE | 2019-08-11 12:50 | W.HOLTRPT ---
Date of service: 08/11/19 Time of Service: 12:50 Holter Monitor Report Holter Monitor Note: There is a 48-hour Holter monitor ordered for the indication of cardiomegaly. ?The patient was in normal sinus rhythm for the majority of the recording time. ?The patient had 0 episodes of SVT. Patient had rare (less than 1%) premature atrial contractions. ?The patient had no episodes of ventricular tachycardia. The patient had frequent (7.3%) single ventricular ectopic beats. ?There were no episodes of atrial fibrillation, no episodes of high degree heart block, and no pauses greater than 3 seconds.
== END 2019-08-08 03:47 ==
PROVIDERS: PCP Family Medicine; Visit Provider Internal Medicine Cardiovascular Disease
DX: I51.7 Cardiomegaly (principal); I49.1 Atrial premature depolarization; I49.3 Ventricular premature depolarization
CPT/HCPCS: 93225

== ENCOUNTER 2019-08-11 09:15 | Outpatient (CLI) | payer BC, SELFPAY | END 2019-08-11 09:35 | PROVIDERS: PCP Family Medicine; Visit Provider Family Medicine | DX: I51.7 Cardiomegaly (principal); I49.1 Atrial premature depolarization; I49.3 Ventricular premature depolarization | CPT/HCPCS: 93226 ==

== ENCOUNTER 2019-08-28 14:36 | Outpatient (CLI) | payer BC, SELFPAY ==
[2019-08-28 15:50] LABS: Anion Gap 9.8 mmol/L (3-11); BUN 33 mg/dL (7-18); CO2 26.2 mmol/L (21.0-32.0); CREATININE 1.78 mg/dL (0.55-1.02); Calcium 9.2 mg/dL (8.5-10.1); Chloride 105 mmol/L (98-107); Glucose 160 mg/dL (74-106); Potassium 4.7 mmol/L (3.5-5.1); Sodium 141 mmol/L (136-145)
== END 2019-08-28 14:56 ==
PROVIDERS: PCP Family Medicine; Visit Provider Internal Medicine Cardiovascular Disease
DX: I42.9 Cardiomyopathy, unspecified (principal); E78.5 Hyperlipidemia, unspecified; I10 Essential (primary) hypertension
CPT/HCPCS: 36415; 80048

== ENCOUNTER 2019-09-08 12:58 | Outpatient (CLI) | payer BC, SELFPAY ==
[2019-09-08 14:20] LABS: Anion Gap 9.2 mmol/L (3-11); BUN 39 mg/dL (7-18); CO2 25.8 mmol/L (21.0-32.0); CREATININE 1.62 mg/dL (0.55-1.02); Calcium 9.6 mg/dL (8.5-10.1); Chloride 107 mmol/L (98-107); Estimated GFR 31.89 (mL/min/1.73m2); Glucose 113 mg/dL (74-106); Potassium 4.2 mmol/L (3.5-5.1); Sodium 142 mmol/L (136-145)
== END 2019-09-08 13:18 ==
PROVIDERS: PCP Family Medicine; Visit Provider Internal Medicine Cardiovascular Disease
DX: I42.9 Cardiomyopathy, unspecified (principal)
CPT/HCPCS: 36415; 80048

== ENCOUNTER 2019-09-19 03:08 | Outpatient (CLI) | payer BC, SELFPAY ==
--- NOTE | 2019-09-19 07:44 | DI.MAMMO_ITS ---
EXAM: MAMMO SCREENING CLINICAL HISTORY: SCREENING, Z12.31, [facility], Z00.00 TECHNIQUE: Mammograms were interpreted according to the usual protocol including computer analysis w [employer] system, tomosynthesis and C-view imaging. FINDINGS: The breasts are of moderate density with fairly symmetrical distribution of fibroglandular tissue. N o dominant mass or clumped microcalcification is identified in either breast. Current examination is compared with previous examinations including July 2017 and there has been no gross interval tyler nge in appearance in comparison with the previous studies. IMPRESSION: No specific evidence of malignancy at this time. Routine screening examinations are suggested at year ly intervals in this age group according to the ACS ACR guidelines. Category 1. Breast density, categ ory B. BI-RADS Cat 1 - Negative. Breast Density - Category B - Scattered areas of fibroglandular density.
== END 2019-09-19 03:28 ==
PROVIDERS: PCP Family Medicine; Visit Provider Family Medicine
DX: Z12.31 Encounter for screening mammogram for malignant neoplasm of breast (principal); Z00.00 Encounter for general adult medical examination without abnormal findings
CPT/HCPCS: 77063; 77067

== ENCOUNTER 2020-05-26 00:56 | Outpatient (CLI) | payer MEDICARE, BC, SELFPAY ==
--- NOTE | 2020-05-26 13:52 | DI.US_ITS ---
APPROVED REPORT EXAM: Comprehensive 2D, Doppler, and color-flow Echocardiogram Patient Location: Out-Patient Lemon Picker: Rajani Salas RDCS (AE) Indications: Cardiomyopathy, Sarcoid myocarditis Other Information Study Quality: Adequate Conclusion Left Ventricle : Left ventricle is severely dilated. Left ventricular systolic function is mildly dec reased. There is normal left ventricular wall thickness. There is global mild hypokinesis of the left ventricle. Mild diastolic dysfunction is present (impaired relaxation pattern). LVEF is 43%. Right Ventricle : The right ventricle is normal size. The right ventricular systolic function is norm al. Atria : Left atrium is mildly dilated. Right atrium is borderline dilated. Valves: There are no hemodynamically significant valvular lesions. Great Vessels : The aortic root is normal in size. The ascending aorta is mildly dilated. Aortic arch is normal in caliber. IVC is normal in size and collapses >50% with inspiration. Compared to echocardiogram from 09/06/2018, there is no significant change. Wall motion Left Ventricle Left ventricle is severely dilated. Left ventricular systolic function is mildly decreased. There is normal left ventricular wall thickness. There is global mild hypokinesis of the left ventricle. Mild diastolic dysfunction is present (impaired relaxation pattern). There is no ventricular septal defect visualized. LVEF is 43%. Right Ventricle The right ventricle is normal size. The right ventricular systolic function is normal. Atria Left atrium is mildly dilated. Right atrium is borderline dilated. The interatrial septum is intact w ith no evidence for an atrial septal defect. Aortic Valve The aortic valve is normal in structure. Aortic valve is trileaflet. There is no aortic valvular sten osis. Trivial aortic regurgitation. Mitral Valve Mild mitral annular calcification. No evidence of mitral valve stenosis. Mild mitral regurgitation. Tricuspid Valve The tricuspid valve is normal in structure. There is no tricuspid valve stenosis. Trace tricuspid reg urgitation. Pulmonic Valve The pulmonary valve is normal in structure. There is no pulmonic valvular stenosis. Trace pulmonic re gurgitation. Great Vessels The aortic root is normal in size. The ascending aorta is mildly dilated. Aortic arch is normal in ca liber. IVC is normal in size and collapses >50% with inspiration. Pericardium There is no pericardial effusion. 2D Dimensions IVSD d PLAX 0.85 cm F: 0.6-1.0 LV Vol A2C d MOD 160.5 mL LVPW d PLAX 0.82 cm F: 0.6 - 1.0 LV Vol A4C d MOD 184.6 mL LVID d PLAX 6.11 cm F: 3.8 - 5.2 LA vol/ BSA A2C s A-L 37.6 mL/m2 LVDs 4.75 cm F: 2.2 - 3.5 LA vol/ BSA A4C s A-L 51.8 mL/m2 Ao Root d 2.92 cm F: 2.7 - 3.3 LA Vol/ BSA Biplane s A-L 45.9 mL/m2 RA Area A4C 13.53 cm2 LA Area A4C s MOD 27.28 cm2 RA Vol/ BSA A4C s A-L 17.4 mL/m2 LA Area A2C s MOD 22.32 cm2 Ao Asc Diam d 3.49 cm F: 2.3 - 3.1 LV EF A4C MOD 43.0 % LV EF Teichholz 43.6 % LV EF A2C MOD 42.6 % LVEF (Chase's) 41.20 % F: 54 - 74 LV EF Biplane MOD 41.2 % LV Volume 127.76 mL F: 46 - 106 SV 70.68 mL LV Volume Index 62.62 mL/m2 F: 29 - 61 SV Index 34.58 mL/m2 LV Vol Biplane MOD 171.6 mL FS 21.95 % M-Mode TAPSE 2.28 cm (M/F) >1.7 LV Diastology MV E' medial 0.066 (>0.07 m/s) E/A Ratio 0.9 LV E/e MED 12.75 (<14) MV E Vmax 0.85 (0.4-1.3 m/s) MV E' lateral 0.075 (>0.1 m/s) MV A Vmax 1.00 (0.4-1.3 m/s) LV E/e LAT 11.25 (<14) MV E/A Ratio 0.81 MV E/E' medial 12.77 MV E/E' lateral 11.28 Aortic Valve LVOT Area 3.21 cm2 AoV Area Vmax 3.25 cm2 LVOT Vmax 1.45 m/s AoV Area/ BSA (Vmax) 1.59 cm2/m2 LVOT Mean Sandro. 0.95 m/s RAO Mean Sandro. 3.01 cm2 LVOT Peak Grad 8.4 mmHg RAO Mean Sandro. Index 1.47 cm2/m2 LVOT Mean Grad 4.1 mmHg LVOT VTI 0.287 m LVOT Diam s 2.00 cm AoV Vmax 1.43 m/s Velocity Ratio 1.01 AoV Mean Sandro. 1.01 m/s AoV Peak Grad 8.2 mmHg LVOT SV 91.99 mL AoV Mean Grad 4.6 mmHg AoV VTI 0.301 m AoV Area VTI 3.06 cm2 AoV Area/ BSA (VTI) 1.50 cm/m2 Mitral Valve MV DT 186 (160-240 msec) MR Vmax 4.64 m/s MV PHT 54 msec MR VTI 1.652 m MV Area PHT 4.07 cm2 MR Peak Grad 86.3 mmHg MV VTI 0.412 m MR Mean Grad 62.2 mmHg MV VTI Annulus 0.401 m MR PISA Radius 0.48 cm MV Area VTI 2.17 (4.0-6.0 cm2) MR EROA 0.11 cm2 MR Aliasing Velocity 0.35 m/s MR PISA 1.46 cm2 Pulmonary Valve PV Vmax 1.03 (0.5-1.5 m/s) RVOT Peak Gr. 2.12 mmHg PV Peak Grad 4.2 mmHg RVOT Mean Gr. 1.15 mmHg PV Mean Grad 2.0 mmHg RVOT VTI 0.163 m PV VTI 0.211 m RVOT Vmax 0.73 m/s Tricuspid Valve TR Peak Grad 17.8 mmHg TR Vmax 2.11 m/s RA Pressure 3.00 mmHg RVSP (TR) 20.9 mmHg
== END 2020-05-26 01:16 ==
PROVIDERS: PCP Family Medicine; Visit Provider Internal Medicine Cardiovascular Disease
DX: D86.85 Sarcoid myocarditis (principal); I77.810 Thoracic aortic ectasia
CPT/HCPCS: 93306

== ENCOUNTER → 2020-05-28 08:56 | Outpatient (BNVA) | payer MEDICARE, BC, SELFPAY | PROVIDERS: PCP Family Medicine; Referring Provider Family Medicine; Visit Provider Internal Medicine Cardiovascular Disease | DX: D86.85 Sarcoid myocarditis (principal); I48.0 Paroxysmal atrial fibrillation; I10 Essential (primary) hypertension | CPT/HCPCS: 99214 ==

== ENCOUNTER 2020-05-31 08:52 | Outpatient (REF) | payer MEDICARE, BC, SELFPAY ==
[2020-05-31 18:58] LABS: HCT 41.3 % (36.0-46.0); HGB 13.4 g/dL (11.2-15.7); MCHC 32.4 % (32.0-36.0); MCV 92.6 fL (80-95); MPV 11.6 fL (8.0-11.0); Platelet Count 212 10^3/uL (130-400); RBC 4.46 10^6/uL (3.93-5.22); RDW 12.6 % (11.7-14.6); RDW-SD 42.5 fL; WBC 4.58 10^3/uL (4.4-10.8)
[2020-05-31 19:20] LABS: Cholesterol 209 mg/dL (<200); HDL Cholesterol 31 mg/dL (40-60); Triglyceride 558 mg/dL (<150)
[2020-05-31 19:26] LABS: Hemoglobin A1C 5.9 % (<5.7)
[2020-05-31 20:22] LABS: LDL CHOLESTEROL 105 mg/dL (<100)
[2020-05-31 21:25] LABS: ALT 26 U/L (14-59); AST 18 U/L (15-37); Albumin 3.7 g/dL (3.4-5.0); Alkaline Phosphatase 78 U/L (46-116); Anion Gap 9.7 mmol/L (3-11); BUN 22 mg/dL (7-18); Bilirubin, Total 0.4 mg/dL (0.2-1.0); CO2 26.3 mmol/L (21.0-32.0); CREATININE 1.39 mg/dL (0.55-1.02); Chloride 107 mmol/L (98-107); Estimated GFR 37.93 (mL/min/1.73m2); Glucose 148 mg/dL (74-106); Potassium 4.2 mmol/L (3.5-5.1); Sodium 143 mmol/L (136-145); Total Protein 6.9 g/dL (6.4-8.2)
== END 2020-05-31 09:12 ==
LOC: NCHCN 08:52
PROVIDERS: PCP Family Medicine; Visit Provider Family Medicine
DX: I10 Essential (primary) hypertension (principal); R73.9 Hyperglycemia, unspecified; D86.9 Sarcoidosis, unspecified; I42.9 Cardiomyopathy, unspecified; N18.3 Chronic kidney disease, stage 3 (moderate); I48.91 Unspecified atrial fibrillation; Z79.82 Long term (current) use of aspirin
CPT/HCPCS: 80053; 80061; 83721; 85027; 83036

== ENCOUNTER 2020-06-23 00:48 | Outpatient (CLI) | payer MEDICARE, BC, SELFPAY ==
--- NOTE | 2020-06-23 | DI.DEXA_ITS ---
EXAM: XR DEXA BONE DENSITY W/WO COMFORT CLINICAL HISTORY: SCREENING FOR OSTEOPOROSIS IN POSTMENOPAUSAL WOMAN,Z78.0 TECHNIQUE: COMPARISON: No exams were available for comparison FINDINGS: DEXA scan was performed according to the usual protocol. Please see the accompanying data sheets. F indings for left hip scanning are T-score 1.0 with left femoral neck T-score -0.5. Findings for lumbar spine scanning are T-score 1.4. Findings for left forearm scanning are T-score -0.3. IMPRESSION: Findings consistent with normal bone density. The lateral vertebral scanogram shows no evidence of v ertebral compression fracture. RADIATION DOSE DELIVERED: Total DLP
== END 2020-06-23 01:08 ==
PROVIDERS: PCP Family Medicine; Visit Provider Family Medicine
DX: Z78.0 Asymptomatic menopausal state (principal)
CPT/HCPCS: 77080

== ENCOUNTER → 2020-08-19 08:02 | Outpatient (BNVA) | payer MEDICARE, BC, SELFPAY | PROVIDERS: PCP Family Medicine; Referring Provider Family Medicine; Visit Provider Physical Therapy Assistant | DX: R19.5 Other fecal abnormalities (principal); I48.0 Paroxysmal atrial fibrillation; Z79.01 Long term (current) use of anticoagulants; I12.0 Hypertensive chronic kidney disease with stage 5 chronic kidney disease or end stage renal disease; N18.30 Chronic kidney disease, stage 3 unspecified | CPT/HCPCS: 99213 ==

== ENCOUNTER 2020-08-25 11:43 | Outpatient (REF) | payer MEDICARE, BC, SELFPAY ==
[2020-08-25 21:21] LABS: Anion Gap 12.2 mmol/L (3-11); BUN 26 mg/dL (7-18); CO2 23.8 mmol/L (21.0-32.0); CREATININE 1.53 mg/dL (0.55-1.02); Calcium 8.9 mg/dL (8.5-10.1); Chloride 106 mmol/L (98-107); Cholesterol 205 mg/dL (<200); Estimated GFR 33.96 (mL/min/1.73m2); Glucose 117 mg/dL (74-106); HDL Cholesterol 32 mg/dL (40-60); Potassium 4.2 mmol/L (3.5-5.1); Sodium 142 mmol/L (136-145); Triglyceride 408 mg/dL (<150); Vitamin B12 1481 pg/mL (193-986)
[2020-08-25 21:23] LABS: Folate > 20.0 ng/mL (8.6-20.0)
[2020-08-25 21:57] LABS: LDL CHOLESTEROL 126 mg/dL (<100)
== END 2020-08-25 12:03 ==
LOC: NCHCN 11:43
PROVIDERS: PCP Family Medicine; Visit Provider Family Medicine
DX: E78.1 Pure hyperglyceridemia (principal); R73.03 Prediabetes; R20.9 Unspecified disturbances of skin sensation
CPT/HCPCS: 80048; 80061; 83721; 82607; 82746; 83036

== ENCOUNTER 2020-08-27 03:50 | Outpatient (CLI) | payer MEDICARE, BC, SELFPAY ==
[2020-08-29 19:05] LABS: COVID-19 RT-PCR Result NEGATIVE (Negative)
== END 2020-08-27 04:10 ==
PROVIDERS: PCP Family Medicine; Visit Provider Surgery
DX: Z11.59 Encounter for screening for other viral diseases (principal); Z01.818 Encounter for other preprocedural examination
CPT/HCPCS: U0003

== ENCOUNTER 2020-09-01 07:23 | Day surgery (SDC) | payer MEDICARE, BC, SELFPAY ==
--- NOTE | 2020-09-01 07:01 | COLE_ITS ---
Date of service: 09/01/20 Time of Service: :18 Colonoscopy Report Date of procedure: 09/01/20 Pre-op diagnosis general: Positive iFOB Post-op diagnosis procedure note: other (multiple polyps and mass ? lipoma) Procedure: Colonoscopy with bx and polypectomy Surgeon: Sally Degroot Anesthesia proc note operative: other (General/ASA 3/Naveed Sultana, [employer]) Estimated blood loss (mL): 5 Pathology: other (Cecal polyp, Ascending mass bx, ascenidng polyp, transverse polyps, descending polyps, sigmoid polyps, polyp at 35 cm, ) Complications: None Disposition: same day Indications: The patient is here for Colonoscopy pre-op. She has no family history of colon cancer. She has not had any bowel habit changes. -Discussed colonoscopy bowel prep as well as the procedure. Discussed possible complications of the procedure to include bleeding, pain, perforation, missed small lesion/polyp, sore throat, aspiration and adverse reaction to the medications. Questions were answered to patient?s satisfaction. No guarantees were implied or given. Prep: Miralax/Dulcolax Procedure Start Time: :18 Procedure End Time: 11:19 Retraction Time: 1 hour Findings: Multiple polyps, most were small, ,1 cm and sessile 1 Larger pedunculated polyp at 35 cm (>1 cm) A submucosal mass in the ascending colon ? lipoma Procedure Description: After informed consent was obtained the patient was taken to the procedure room and placed in a left decubitous position. Monitors were applied and a time out was done. The patients name, date of , procedure, allergies to medications and metal in their body was reviewed. The patient was then sedated. Once sedated and comfortable a rectal exam was done. External exam was normal. Internal exam revealed a normal sphincter tone and no palpable masses. The scope was then introduced and retro-flexed. No internal hemorrhoids were identified. The scope was then advanced to the cecum with a lot of difficulty. It took an hour to get the scope to the ileocecal vlave. I was able to the past the valve but I was unable to get the scope into the cecum. The ileocecal valve was identified. The prep was adequate. The scope was then slowly retracted over 60 minutes back into the rectum. Polyps were removed with cold forceps in the cecum, Ascending colon x2, Transverse colon x6, Descending colon x2, and sigmoid colon x2. A >1cm pedunculated polyp was removed with a hot snare at 35 cm. There was also a large submucosal mass noted in the ascending colon that was biopsied. The scope was removed and the patient was woken up and taken back to Same day surgery in stable condition. The patient tolerated the procedure well and there were no immediate complications. Follow up: Follow up will depend on final pathology results
--- NOTE | 2020-09-01 07:02 | W.PM.DSUDISC ---
Discharge Plan Disposition Patient Disposition: HOME Condition: Good Discharge Details Reason For Visit: Colonoscopy Attending Provider: Sally Degroot Primary Care Provider: Sammie Cordero Home Meds and New Rx's Prescriptions: Continued furosemide 20 mg tablet 20 mg PO DAILY RF: 0 alendronate 70 mg tablet 70 mg PO QWEEK RF: 0 apixaban 5 mg tablet 5 mg PO BID Qty: 120 RF: 3 Entresto 24-26 mg tablet 1 tab PO BID Qty: 60 RF: 3 metoprolol succinate 100 mg tablet extended release 24 hr 150 mg PO DAILY Qty: 90 RF: 6 diltiazem HCl 180 mg capsule,extended release 24hr 180 mg PO DAILY Qty: 90 RF: 6 Lumigan 0.01 % drops 1 drp ophthalmic (eye) DAILY RF: 0 Multi Complete with Iron 1 EACH tablet 1 tab-cap PO DAILY RF: 0 ascorbic acid (vitamin C) [Vitamin C] 500 MG tablet 500 mg PO DAILY RF: 0 vitamin E 400 UNIT capsule 400 unit PO DAILY Qty: 1 RF: 0 garlic 1 EACH capsule 1 ea PO DAILY RF: 0 Fish Oil 1 EACH capsule 1 ea PO DAILY RF: 0 cyanocobalamin (vitamin B-12) [Vitamin B-12] 100 mcg Tablet 100 mcg PO DAILY RF: 0 thiamine HCl (vitamin B1) [Vitamin B-1] 100 mg Tablet 100 mg PO DAILY RF: 0 acetaminophen [Tylenol] 325 mg Tablet 325 - 650 mg PO Q4H PRN PRNQty: 0 RF: 0 Discontinued polyethylene glycol 3350 17 gram/dose powder 238 g PO ONCE Qty: 238 RF: 0 bisacodyl [Dulcolax (bisacodyl)] 5 mg tablet,delayed release (DR/EC) 5 mg PO ONCE Qty: 4 RF: 0 Discharge Instructions Additional Instructions: Findings: 14 polyps There was a mass in the ascending colon that looked benign, like a lipoma. I did biopsies. Follow up: I will call you with results Please call if you develop: fevers >101.5 Nausea or Vomiting Abdominal pain that is not transient Home medications: OK to restart apixiban tomorrow morning DAY SURGERY UNIT POST ENDOSCOPY INSTRUCTIONS 1. Because there will be medication in your system for the next 24 hours, you may feel a little sleepy. Your coordination will be affected. Therefore: a. Do not drive or operate dangerous equipment for 24 hours. b. Do not drink alcohol beverages for 24 hours (not even beer). c. Plan to go home and rest for the day. 2. Generally there are no restrictions on your activity after a day or so has gone by, but you may feel a bit fatigued for a few days. 3 After you arrive home you may have a light meal and return to a normal diet as you can tolerate it without feeling sick to your stomach. 4. After surgery, you may feel pain or discomfort. This should be only transient, but if it persists please contact your doctor. 5. If there are any questions regarding the findings of your procedure, please feel free to contact your doctor. 6. If you are unable to contact your doctor with a problem, contact the hospital at [phone]. 7. Continue all your regular medications unless directed otherwise. I understand the above instructions and have no questions. Signature of Patient or Responsible Adult Escort Date/Time Name of Responsible Adult Escort Signature of Nurse Date/Time Activity:: Activity as Tolerated Diet:: As Tolerated Discharge Orders Discharge Orders: Discharge Order (Routine); Ordered 09/01/20 Ordered By: Sally Degroot
[2020-09-01 07:48] VITALS: BP 129/62; PULSE 52; RESP 16; TEMP 35.9; O2SAT 97
[2020-09-01] MEDS: Lactated Ringers 1,000 ML 80 ML IV (08:15)
--- NOTE | 2020-09-01 10:04 | BOWEL_PTH ---
PATIENT: Jen Guevara LOC: [facility] U#:[id number] AGE/SX: 65/F ROOM: RE09/01/[address]: Sally Degroot MD : 1955 BED: DIS: 09/01/2020 SPEC #: [id number] RECD: 09/01/20 12:51 STATUS: RYAN RE #: [id number] ADIN: 09/01/20 10:[address]: Sally Degroot DEPT: Surgical Specimen RECD BY: Janice Townsend ENTERED: 09/01/20 12:54 SP TYPE: Bowel OTHR DR: Sammie Cordero Tissues: 1 - BIOPSY BOWEL 2 - BIOPSY BOWEL 3 - BIOPSY BOWEL 4 - BIOPSY BOWEL 5 - BIOPSY BOWEL 6 - BIOPSY BOWEL 7 - BIOPSY BOWEL 8 - BIOPSY BOWEL 9 - BIOPSY BOWEL Procedures: GROSS AND MICRO LEVEL 4 Comments: [id number]
[2020-09-01] MEDS: Endoscopic Tattoo 5 ML SYR IJ (10:24)
[2020-09-01 12:03] VITALS: BP 117/57; PULSE 53; RESP 18; TEMP 36.2; O2SAT 96
[2020-09-01 12:39] VITALS: BP 113/56; PULSE 66; RESP 18; TEMP 36.5; O2SAT 98
== END 2020-09-01 12:55 | disposition home or self-care (01) ==
LOC: SUR 07:23
PROVIDERS: PCP Family Medicine; Visit Provider Surgery
PROC: 0DJD8ZZ Inspection of Lower Intestinal Tract, Via Natural or Artificial Opening Endoscopic (ICD-10-PCS; CPT 45378; principal; 2020-09-01 08:45)
DX: R19.5 Other fecal abnormalities (principal); D12.3 Benign neoplasm of transverse colon; D12.0 Benign neoplasm of cecum; D12.4 Benign neoplasm of descending colon; D12.5 Benign neoplasm of sigmoid colon; D12.2 Benign neoplasm of ascending colon; I48.0 Paroxysmal atrial fibrillation; Z79.01 Long term (current) use of anticoagulants; I10 Essential (primary) hypertension; N18.30 Chronic kidney disease, stage 3 unspecified
CPT/HCPCS: 45385; 45380; 88305; J2001; J2704

== ENCOUNTER → 2020-11-25 12:44 | Outpatient (BNVA) | payer MEDICARE, BC, SELFPAY | PROVIDERS: PCP Family Medicine; Referring Provider Family Medicine; Visit Provider Internal Medicine Cardiovascular Disease | DX: I42.9 Cardiomyopathy, unspecified (principal); I48.0 Paroxysmal atrial fibrillation; I10 Essential (primary) hypertension; E78.5 Hyperlipidemia, unspecified; D86.85 Sarcoid myocarditis | CPT/HCPCS: 99214; 99213 ==

== ENCOUNTER 2020-11-29 11:12 | Outpatient (REF) | payer MEDICARE, BC, SELFPAY ==
[2020-11-29 15:15] LABS: HCT 43.2 % (36.0-46.0); HGB 14.2 g/dL (11.2-15.7); MCH 29.7 pg (27.0-33.0); MCHC 32.9 % (32.0-36.0); MCV 90.4 fL (80-95); MPV 11.5 fL (8.0-11.0); Platelet Count 204 10^3/uL (130-400); RBC 4.78 10^6/uL (3.93-5.22); RDW 13.1 % (11.7-14.6); RDW-SD 43.2 fL; WBC 5.34 10^3/uL (4.4-10.8)
[2020-11-29 15:28] LABS: Iron 78 ug/dL (50-170); Total Iron Binding Capacity 330 ug/dL (250-450); Transferrin Sat 24 % (15-50)
[2020-11-29 15:45] LABS: Anion Gap 12.3 mmol/L (3-11); BUN 23 mg/dL (7-18); CO2 24.7 mmol/L (21.0-32.0); CREATININE 1.4 mg/dL (0.55-1.02); Calcium 8.8 mg/dL (8.5-10.1); Chloride 109 mmol/L (98-107); Estimated GFR 37.62 (mL/min/1.73m2); Ferritin 57 ng/mL (8-252); Glucose 128 mg/dL (74-106); Potassium 3.6 mmol/L (3.5-5.1); Sodium 146 mmol/L (136-145); TSH (W/Ref FT4) 1.72 uIU/mL (0.36-3.74)
[2020-11-29 15:52] LABS: Vitamin D 25 Total 19.4 ng/ml (30-100)
[2020-11-29 15:56] LABS: PHOSPHORUS 4.1 mg/dL (2.6-4.7)
[2020-12-02 09:54] LABS: Parathyroid Hormone,Intact 92 pg/mL (19-88)
[2020-12-02 13:00] LABS: Albumin 59.1 % (55.8-66.1); Total Protein 7.3 g/dL (6.3-8.2)
== END 2020-11-29 11:13 | disposition home or self-care (01) ==
LOC: NCHCN 11:12
PROVIDERS: PCP Family Medicine; Visit Provider Family Medicine
DX: R73.03 Prediabetes (principal); D86.9 Sarcoidosis, unspecified; N18.30 Chronic kidney disease, stage 3 unspecified; R20.9 Unspecified disturbances of skin sensation; I48.0 Paroxysmal atrial fibrillation
CPT/HCPCS: 80048; 82306; 85027; 82728; 83540; 83550; 83970; 84100; 84165; 84443

== ENCOUNTER → 2020-11-30 12:43 | Outpatient (BNVA) | payer MEDICARE, BC, SELFPAY | PROVIDERS: PCP Family Medicine; Referring Provider Family Medicine; Visit Provider Psychiatry & Neurology Neurology | DX: D86.9 Sarcoidosis, unspecified (principal); G62.9 Polyneuropathy, unspecified; G56.03 Carpal tunnel syndrome, bilateral upper limbs; G56.21 Lesion of ulnar nerve, right upper limb; I10 Essential (primary) hypertension | CPT/HCPCS: 95885; 95910; 99215 ==

== ENCOUNTER 2020-12-01 08:35 | Outpatient (REF) | payer MEDICARE, BC, SELFPAY ==
[2020-12-01 15:42] LABS: C-Reactive Protein 0.34 mg/dL (0.0-0.3)
[2020-12-01 21:20] LABS: Rheumatoid Factor 20.1 IU/mL (<12.0)
[2020-12-01 22:55] LABS: ESR 13 mm/hr (<or=30)
[2020-12-02 15:00] LABS: ANA Interpretation Negative (Negative)
== END 2020-12-01 08:36 | disposition home or self-care (01) ==
LOC: NCHCN 08:35
PROVIDERS: PCP Family Medicine; Visit Provider Psychiatry & Neurology Neurology
DX: G62.9 Polyneuropathy, unspecified (principal); R20.2 Paresthesia of skin; G56.03 Carpal tunnel syndrome, bilateral upper limbs; G56.21 Lesion of ulnar nerve, right upper limb; D86.89 Sarcoidosis of other sites; I10 Essential (primary) hypertension
CPT/HCPCS: 85652; 86038; 86140; 86431

== ENCOUNTER 2021-01-07 04:26 | Outpatient (RCR) | payer MEDICARE, BC, SELFPAY ==
[2021-01-03] VITALS (7 sets, daily range): BP systolic 121–135; BP diastolic 59–81; PULSE 54–63; RESP 16–18; TEMP 36–36.5; O2SAT 96–98
[2021-01-03] MEDS: Acetaminophen 500 MG TAB (08:15)
[2021-01-03] MEDS: IMMUNE GLOBULIN 40 GM/400 ML BTL IVPB (08:17)
[2021-01-03] MEDS: Normal Saline Flush 10 ML SYR IVP (08:18)
[2021-01-04] MEDS: Normal Saline Flush 10 ML SYR IVP (07:29)
[2021-01-04 07:50] VITALS: BP 132/68; PULSE 63; RESP 17; TEMP 36.3; O2SAT 99
[2021-01-04] MEDS: IMMUNE GLOBULIN 40 GM/400 ML BTL IVPB (07:50)
[2021-01-04 08:05] VITALS: BP 123/82; PULSE 58; RESP 18; TEMP 36.8; O2SAT 97
[2021-01-04 08:12] LABS: CREATININE 1.5 mg/dL (0.55-1.02); Estimated GFR 34.74 (mL/min/1.73m2)
[2021-01-04 08:20] VITALS: BP 125/67; PULSE 57; RESP 16; TEMP 36.8; O2SAT 96
[2021-01-04 08:50] VITALS: BP 132/70; PULSE 59; RESP 18; TEMP 36.8; O2SAT 97
[2021-01-04 09:25] VITALS: BP 127/61; PULSE 52; RESP 16; TEMP 36.9; O2SAT 99
[2021-01-04 09:30] VITALS: BP 122/68; PULSE 60; RESP 17; TEMP 36.8; O2SAT 97
[2021-01-05] VITALS (7 sets, daily range): BP systolic 122–147; BP diastolic 63–85; PULSE 61–69; RESP 16–20; TEMP 36.2–36.6; O2SAT 96–100
[2021-01-05] MEDS: Normal Saline Flush 10 ML SYR IVP (07:27)
[2021-01-05] MEDS: IMMUNE GLOBULIN 40 GM/400 ML BTL IVPB (07:43)
[2021-01-06] VITALS (7 sets, daily range): BP systolic 123–140; BP diastolic 69–74; PULSE 63–66; RESP 16–20; TEMP 36.1–36.6; O2SAT 95–100
[2021-01-06] MEDS: IMMUNE GLOBULIN 40 GM/400 ML BTL IVPB (07:27)
[2021-01-06] MEDS: Normal Saline Flush 10 ML SYR IVP (07:27)
[2021-01-07 07:25] VITALS: BP 156/82; PULSE 52; RESP 16; TEMP 36.6; O2SAT 96
[2021-01-07] MEDS: Normal Saline Flush 10 ML SYR IVP (07:25)
[2021-01-07] MEDS: IMMUNE GLOBULIN 40 GM/400 ML BTL IVPB (07:25)
[2021-01-07 07:49] LABS: CREATININE 1.6 mg/dL (0.55-1.02); Estimated GFR 32.25 (mL/min/1.73m2)
[2021-01-07 07:50] VITALS: BP 150/75; PULSE 65; RESP 16; TEMP 36.6; O2SAT 97
[2021-01-07 08:20] VITALS: BP 153/83; PULSE 63; RESP 16; TEMP 36.6; O2SAT 98
[2021-01-07 08:50] VITALS: BP 157/69; PULSE 60; RESP 16; TEMP 36.7; O2SAT 96
[2021-01-07 09:20] VITALS: BP 140/74; PULSE 52; RESP 16; TEMP 36.7; O2SAT 98
== END 2021-01-14 23:59 | disposition home or self-care (01) ==
LOC: INF 04:26
PROVIDERS: PCP Family Medicine; Visit Provider Psychiatry & Neurology Neurology
DX: G61.81 Chronic inflammatory demyelinating polyneuritis (principal)
CPT/HCPCS: 36415; 96365; 96366; 82565; J1459

== ENCOUNTER → 2021-01-17 13:26 | Outpatient (BNVA) | payer MEDICARE, BC, SELFPAY | PROVIDERS: PCP Family Medicine; Referring Provider Family Medicine; Visit Provider Psychiatry & Neurology Neurology | DX: G62.9 Polyneuropathy, unspecified (principal); G56.03 Carpal tunnel syndrome, bilateral upper limbs; G56.21 Lesion of ulnar nerve, right upper limb; I10 Essential (primary) hypertension | CPT/HCPCS: 99214 ==

== ENCOUNTER 2021-03-04 02:22 | Outpatient (RCR) | payer MEDICARE, BC, SELFPAY ==
[2021-01-15 00:25] VITALS: BP 140/74; PULSE 52; RESP 16; TEMP 36.7
[2021-02-28 07:50] VITALS: PULSE 64; RESP 16; TEMP 36.6; O2SAT 100
[2021-02-28] MEDS: IMMUNE GLOBULIN 40 GM/400 ML BTL IVPB (08:09)
[2021-02-28] MEDS: Normal Saline Flush 10 ML SYR IVP (08:10)
[2021-02-28 08:25] VITALS: BP 116/63; PULSE 57; RESP 16; TEMP 36.6; O2SAT 96
[2021-02-28 08:40] VITALS: BP 116/74; PULSE 57; RESP 16; TEMP 36.7; O2SAT 97
[2021-02-28 09:10] VITALS: BP 108/58; PULSE 59; RESP 16; TEMP 36.7; O2SAT 97
[2021-02-28 09:47] VITALS: BP 116/74; PULSE 60; RESP 16; TEMP 36.8; O2SAT 97
[2021-03-01] MEDS: Normal Saline Flush 10 ML SYR IVP (07:43)
[2021-03-01] MEDS: IMMUNE GLOBULIN 40 GM/400 ML BTL IVPB (07:43)
[2021-03-01 07:46] VITALS: BP 132/81; PULSE 57; RESP 16; TEMP 36.7; O2SAT 100
[2021-03-01 08:00] VITALS: BP 129/76; PULSE 56; RESP 16; TEMP 36.7; O2SAT 97
[2021-03-01 08:01] LABS: CREATININE 1.5 mg/dL (0.55-1.02); Estimated GFR 34.74 (mL/min/1.73m2)
[2021-03-01 08:15] VITALS: BP 129/73; PULSE 54; RESP 16; TEMP 36.7; O2SAT 97
[2021-03-01 08:45] VITALS: BP 123/73; PULSE 53; RESP 16; TEMP 36.8; O2SAT 95
[2021-03-01 09:15] VITALS: BP 132/68; PULSE 59; RESP 16; TEMP 36.9; O2SAT 95
[2021-03-02] MEDS: Normal Saline Flush 10 ML SYR IVP (07:29)
[2021-03-02] MEDS: IMMUNE GLOBULIN 40 GM/400 ML BTL IVPB (07:43)
[2021-03-02 07:45] VITALS: BP 137/83; PULSE 53; RESP 16; TEMP 36.7; O2SAT 97
[2021-03-02 08:08] VITALS: BP 134/81; PULSE 51; RESP 17; TEMP 36.7; O2SAT 97
[2021-03-02 08:24] VITALS: BP 147/86; PULSE 57; RESP 16; TEMP 36.7; O2SAT 97
[2021-03-02 08:54] VITALS: BP 156/73; PULSE 55; RESP 16; TEMP 36.7; O2SAT 99
[2021-03-02 09:25] VITALS: BP 133/66; PULSE 63; RESP 16; TEMP 36.8; O2SAT 100
[2021-03-03 07:46] VITALS: BP 145/84; PULSE 57; RESP 14; TEMP 36.6; O2SAT 99
[2021-03-03] MEDS: IMMUNE GLOBULIN 40 GM/400 ML BTL IVPB (07:51)
[2021-03-03] MEDS: Normal Saline Flush 10 ML SYR IVP (07:51)
[2021-03-03 08:10] VITALS: BP 129/77; PULSE 62; RESP 14; TEMP 36.6; O2SAT 98
[2021-03-03 08:40] VITALS: BP 149/83; PULSE 55; RESP 16; TEMP 36.7; O2SAT 98
[2021-03-03 08:43] VITALS: BP 165/81; PULSE 64; RESP 17; TEMP 36.9; O2SAT 99
[2021-03-03 09:10] VITALS: BP 148/88; PULSE 60; RESP 16; TEMP 36.9; O2SAT 99
[2021-03-04] MEDS: Normal Saline Flush 10 ML SYR IVP (07:43)
[2021-03-04] MEDS: IMMUNE GLOBULIN 40 GM/400 ML BTL IVPB (07:43)
[2021-03-04 07:48] VITALS: BP 138/80; PULSE 66; RESP 14; TEMP 36.6; O2SAT 98
[2021-03-04 08:00] LABS: CREATININE 1.5 mg/dL (0.55-1.02); Estimated GFR 34.74 (mL/min/1.73m2)
[2021-03-04 08:06] VITALS: BP 143/75; PULSE 66; RESP 14; TEMP 37.1; O2SAT 96
[2021-03-04 08:22] VITALS: BP 145/90; PULSE 69; RESP 16; TEMP 36.7; O2SAT 97
== END 2021-03-16 23:59 | disposition home or self-care (01) ==
LOC: INF 02:22
PROVIDERS: PCP Family Medicine; Visit Provider Psychiatry & Neurology Neurology
DX: G61.89 Other inflammatory polyneuropathies (principal); D86.89 Sarcoidosis of other sites
CPT/HCPCS: 36415; 96365; 96366; 82565; J1459

== ENCOUNTER 2021-04-15 05:34 | Outpatient (RCR) | payer MEDICARE, BC, SELFPAY ==
[2021-03-17 00:16] VITALS: BP 145/90; PULSE 69; RESP 16; TEMP 36.7
[2021-04-11] MEDS: Normal Saline Flush 10 ML SYR IVP (08:05)
[2021-04-11] MEDS: IMMUNE GLOBULIN 40 GM/400 ML BTL IVPB (08:07)
[2021-04-11 08:15] VITALS: BP 123/76; PULSE 57; RESP 16; TEMP 36.1; O2SAT 98
[2021-04-11 08:31] VITALS: BP 118/75; PULSE 58; RESP 16; TEMP 36.7; O2SAT 99
[2021-04-11 09:01] VITALS: BP 135/81; PULSE 58; RESP 16; TEMP 36.6; O2SAT 95
[2021-04-11 09:33] VITALS: BP 164/75; PULSE 54; RESP 16; TEMP 36.6; O2SAT 96
[2021-04-12] MEDS: Normal Saline Flush 10 ML SYR IVP (07:43)
[2021-04-12] MEDS: IMMUNE GLOBULIN 40 GM/400 ML BTL IVPB (07:43)
[2021-04-12 07:54] VITALS: BP 110/76; PULSE 60; RESP 16; TEMP 36.5; O2SAT 97
[2021-04-12 08:10] VITALS: BP 114/64; PULSE 60; RESP 16; TEMP 36.6; O2SAT 97
[2021-04-12 08:12] LABS: CREATININE 1.5 mg/dL (0.55-1.02); Estimated GFR 34.64 (mL/min/1.73m2)
[2021-04-12 08:28] VITALS: BP 111/65; PULSE 60; RESP 16; TEMP 36.7; O2SAT 98
[2021-04-12 08:55] VITALS: BP 127/66; PULSE 57; RESP 16; TEMP 36.5; O2SAT 97
[2021-04-13] MEDS: Normal Saline Flush 10 ML SYR IVP (07:36)
[2021-04-13] MEDS: IMMUNE GLOBULIN 40 GM/400 ML BTL IVPB (07:44)
[2021-04-13 07:50] VITALS: BP 129/69; PULSE 53; RESP 16; TEMP 36.5; O2SAT 98
[2021-04-13 08:05] VITALS: BP 118/75; PULSE 60; RESP 16; TEMP 36.6; O2SAT 99
[2021-04-13 08:35] VITALS: BP 120/81; PULSE 60; RESP 16; TEMP 36.6; O2SAT 96
[2021-04-13 09:05] VITALS: BP 127/78; PULSE 60; RESP 16; TEMP 36.7; O2SAT 97
[2021-04-13 09:40] VITALS: BP 132/84; PULSE 61; RESP 16; TEMP 36.7; O2SAT 99
[2021-04-14] MEDS: IMMUNE GLOBULIN 40 GM/400 ML BTL IVPB (07:32)
[2021-04-14 07:33] VITALS: BP 134/77; PULSE 53; RESP 16; TEMP 36.4; O2SAT 100
[2021-04-14] MEDS: Normal Saline Flush 10 ML SYR IVP (07:33)
[2021-04-14 07:55] VITALS: BP 139/82; PULSE 60; RESP 16; TEMP 36.7; O2SAT 96
[2021-04-14 08:10] VITALS: BP 126/80; PULSE 59; RESP 16; TEMP 36.5; O2SAT 98
[2021-04-14 08:40] VITALS: BP 165/77; PULSE 65; RESP 16; TEMP 36.6; O2SAT 98
[2021-04-14 09:10] VITALS: BP 165/77; PULSE 58; RESP 16; TEMP 36.7; O2SAT 99
[2021-04-14 09:35] VITALS: BP 146/91; PULSE 58; RESP 16; TEMP 36.7; O2SAT 98
[2021-04-15] MEDS: Normal Saline Flush 10 ML SYR IVP (07:37)
[2021-04-15] MEDS: IMMUNE GLOBULIN 40 GM/400 ML BTL IVPB (07:37)
[2021-04-15 07:52] VITALS: BP 145/81; PULSE 76; RESP 16; TEMP 36.4; O2SAT 100
[2021-04-15 07:55] VITALS: BP 131/73; PULSE 60; RESP 16; TEMP 36.6; O2SAT 98
[2021-04-15 08:05] VITALS: BP 130/82; PULSE 61; RESP 16; TEMP 36.6; O2SAT 95
[2021-04-15 08:05] LABS: CREATININE 1.5 mg/dL (0.55-1.02); Estimated GFR 34.64 (mL/min/1.73m2)
[2021-04-15 08:35] VITALS: BP 131/80; PULSE 61; RESP 16; TEMP 36.7; O2SAT 98
[2021-04-15 09:05] VITALS: BP 130/78; PULSE 60; RESP 16; TEMP 36.6; O2SAT 98
== END 2021-04-16 23:59 | disposition home or self-care (01) ==
LOC: INF 05:34
PROVIDERS: PCP Family Medicine; Visit Provider Psychiatry & Neurology Neurology
DX: G61.89 Other inflammatory polyneuropathies (principal); D86.9 Sarcoidosis, unspecified
CPT/HCPCS: 36415; 96365; 96366; 82565; J1459

== ENCOUNTER → 2021-04-18 08:44 | Outpatient (BNVA) | payer MEDICARE, BC, SELFPAY | PROVIDERS: PCP Family Medicine; Visit Provider Psychiatry & Neurology Neurology | DX: G62.9 Polyneuropathy, unspecified (principal); G56.03 Carpal tunnel syndrome, bilateral upper limbs; G56.21 Lesion of ulnar nerve, right upper limb; I10 Essential (primary) hypertension | CPT/HCPCS: 99213 ==

== ENCOUNTER 2021-05-24 14:58 | Outpatient (REF) | payer MEDICARE, BC, SELFPAY ==
[2021-05-24 18:48] LABS: HCT 40.3 % (36.0-46.0); HGB 13.1 g/dL (11.2-15.7); MCH 29.8 pg (27.0-33.0); MCHC 32.5 % (32.0-36.0); MCV 91.6 fL (80-95); Platelet Count 191 10^3/uL (130-400); RDW 13.4 % (11.7-14.6); RDW-SD 45.2 fL; WBC 3.63 10^3/uL (4.4-10.8)
[2021-05-24 19:57] LABS: Anion Gap 9.9 mmol/L (3-11); BUN 27 mg/dL (7-18); CO2 24.1 mmol/L (21.0-32.0); CREATININE 1.4 mg/dL (0.55-1.02); Calcium 9.3 mg/dL (8.5-10.1); Chloride 107 mmol/L (98-107); Estimated GFR 37.51 (mL/min/1.73m2); Glucose 98 mg/dL (74-106); Potassium 4.3 mmol/L (3.5-5.1); Sodium 141 mmol/L (136-145)
[2021-05-26 01:37] LABS: Vitamin D 25 Total 25.4 ng/mL (30-100)
[2021-05-26 10:08] LABS: Parathyroid Hormone,Intact 38 pg/mL (19-88)
== END 2021-05-24 14:59 | disposition home or self-care (01) ==
LOC: NCHCN 14:58
PROVIDERS: PCP Family Medicine; Visit Provider Family Medicine
DX: R73.03 Prediabetes (principal); N18.30 Chronic kidney disease, stage 3 unspecified
CPT/HCPCS: 80048; 82306; 85027; 83036; 83970

== ENCOUNTER 2021-05-30 03:04 | Outpatient (RCR) | payer MEDICARE, BC, SELFPAY ==
[2021-04-17 00:21] VITALS: BP 130/78; PULSE 60; RESP 16; TEMP 36.6
[2021-05-24] MEDS: IMMUNE GLOBULIN 40 GM/400 ML BTL IVPB (08:04)
[2021-05-24] MEDS: Normal Saline Flush 10 ML SYR IVP (08:04)
[2021-05-24 08:14] VITALS: BP 125/65; PULSE 66; RESP 18; TEMP 36.7; O2SAT 97
[2021-05-24 08:30] VITALS: BP 124/75; PULSE 61; RESP 17; TEMP 36.8; O2SAT 97
[2021-05-24 09:00] VITALS: BP 136/73; PULSE 60; RESP 17; TEMP 35.8; O2SAT 96
[2021-05-24 09:25] VITALS: BP 129/77; PULSE 60; RESP 17; TEMP 36.8; O2SAT 98
[2021-05-24 09:55] VITALS: BP 128/74; PULSE 58; RESP 17; TEMP 37.1; O2SAT 98
[2021-05-25] MEDS: IMMUNE GLOBULIN 40 GM/400 ML BTL IVPB (07:38)
[2021-05-25 07:39] VITALS: BP 120/72; PULSE 60; RESP 16; TEMP 36.6; O2SAT 98
[2021-05-25] MEDS: Normal Saline Flush 10 ML SYR IVP ×2 (07:39→07:47)
[2021-05-25 07:55] VITALS: BP 120/71; PULSE 60; RESP 16; TEMP 36.8; O2SAT 97
[2021-05-25 07:56] LABS: CREATININE 1.5 mg/dL (0.55-1.02); Estimated GFR 34.64 (mL/min/1.73m2)
[2021-05-25 08:13] VITALS: BP 124/71; PULSE 53; RESP 16; TEMP 36.7; O2SAT 96
[2021-05-25 08:45] VITALS: BP 138/74; PULSE 56; RESP 16; TEMP 36.9; O2SAT 97
[2021-05-25 09:15] VITALS: BP 144/76; PULSE 54; RESP 16; TEMP 36.9; O2SAT 96
[2021-05-26] MEDS: IMMUNE GLOBULIN 40 GM/400 ML BTL IVPB (07:38)
[2021-05-26 07:42] VITALS: BP 120/66; PULSE 64; RESP 17; TEMP 36.4; O2SAT 98
[2021-05-26] MEDS: Normal Saline Flush 10 ML SYR IVP (07:42)
[2021-05-26 07:57] VITALS: BP 109/66; PULSE 62; RESP 17; TEMP 36.5; O2SAT 95
[2021-05-26 08:15] VITALS: BP 133/82; PULSE 63; RESP 17; TEMP 36.5; O2SAT 96
[2021-05-26 08:30] VITALS: BP 127/80; PULSE 56; RESP 18; TEMP 36.3; O2SAT 96
[2021-05-26 09:00] VITALS: BP 142/70; PULSE 53; RESP 18; TEMP 36.5; O2SAT 97
[2021-05-27 08:00] VITALS: BP 109/72; PULSE 63; RESP 16; TEMP 36.3; O2SAT 98
[2021-05-27] MEDS: Normal Saline Flush 10 ML SYR IVP (08:03)
[2021-05-27] MEDS: IMMUNE GLOBULIN 40 GM/400 ML BTL IVPB (08:03)
[2021-05-27 08:20] VITALS: BP 138/81; PULSE 55; RESP 17; TEMP 36.7; O2SAT 97
[2021-05-27 08:50] VITALS: BP 121/77; PULSE 57; RESP 16; TEMP 36.5; O2SAT 96
[2021-05-27 09:24] VITALS: BP 143/72; PULSE 60; RESP 17; TEMP 36.6; O2SAT 95
[2021-05-27 09:50] VITALS: BP 145/79; PULSE 56; RESP 16; TEMP 36.8; O2SAT 100
[2021-05-30] MEDS: Normal Saline Flush 10 ML SYR IVP (07:41)
[2021-05-30 07:45] VITALS: BP 144/77; PULSE 58; RESP 17; TEMP 36.3; O2SAT 98
[2021-05-30] MEDS: IMMUNE GLOBULIN 40 GM/400 ML BTL IVPB (07:45)
[2021-05-30 08:00] VITALS: BP 142/67; PULSE 56; RESP 18; TEMP 36.6; O2SAT 98
[2021-05-30 08:20] VITALS: BP 130/84; PULSE 54; RESP 18; TEMP 36.7; O2SAT 98
[2021-05-30 08:41] LABS: CREATININE 1.6 mg/dL (0.55-1.02); Estimated GFR 32.15 (mL/min/1.73m2)
[2021-05-30 08:50] VITALS: BP 136/73; PULSE 54; RESP 17; TEMP 36.6; O2SAT 98
== END 2021-06-16 23:59 | disposition home or self-care (01) ==
LOC: INF 03:04
PROVIDERS: PCP Family Medicine; Visit Provider Psychiatry & Neurology Neurology
DX: G62.89 Other specified polyneuropathies (principal); D86.89 Sarcoidosis of other sites
CPT/HCPCS: 36415; 96365; 96366; 82565; J1459

== ENCOUNTER → 2021-05-31 09:12 | Outpatient (BNVA) | payer MEDICARE, BC, SELFPAY | PROVIDERS: PCP Family Medicine; Referring Provider Family Medicine; Visit Provider Internal Medicine Cardiovascular Disease | DX: D86.9 Sarcoidosis, unspecified (principal) | CPT/HCPCS: 99213 ==

== ENCOUNTER 2021-06-06 16:09 | Outpatient (REF) | payer MEDICARE, BC, SELFPAY ==
[2021-06-06 15:00] LABS: COMMENT (LAB VIEW ONLY) 24.63 mg/dL; Microalb ug/mg Crea 70.6 ug/mg Cr
== END 2021-06-06 16:10 | disposition home or self-care (01) ==
LOC: NCHCN 16:09
PROVIDERS: PCP Family Medicine; Visit Provider Family Medicine
DX: N18.30 Chronic kidney disease, stage 3 unspecified (principal)
CPT/HCPCS: 82043; 82570

== ENCOUNTER 2021-07-08 01:32 | Outpatient (RCR) | payer MEDICARE, BC, SELFPAY ==
[2021-06-17 00:02] VITALS: BP 136/73; PULSE 54; RESP 17; TEMP 36.6
[2021-07-04 07:45] VITALS: BP 128/73; PULSE 61; RESP 20; TEMP 36.6; O2SAT 98
[2021-07-04 07:53] VITALS: BP 119/68; PULSE 56; RESP 18; TEMP 36.7; O2SAT 97
[2021-07-04] MEDS: Normal Saline Flush 10 ML SYR IVP (07:53)
[2021-07-04] MEDS: IMMUNE GLOBULIN 40 GM/400 ML BTL IVPB (07:53)
[2021-07-04 08:15] VITALS: BP 119/68; PULSE 54; RESP 18; TEMP 36.6; O2SAT 97
[2021-07-04 08:54] VITALS: BP 124/74; PULSE 58; RESP 18; TEMP 35.7; O2SAT 98
[2021-07-04 09:40] VITALS: BP 132/53; PULSE 84; RESP 20; TEMP 36.3; O2SAT 100
[2021-07-05] MEDS: IMMUNE GLOBULIN 40 GM/400 ML BTL IVPB (07:53)
[2021-07-05] MEDS: Normal Saline Flush 10 ML SYR IVP (07:53)
[2021-07-05 07:56] VITALS: BP 118/68; PULSE 57; RESP 18; TEMP 36.7
[2021-07-05 08:15] VITALS: BP 118/63; PULSE 55; RESP 18; TEMP 36.7; O2SAT 98
[2021-07-05 08:24] LABS: CREATININE 1.5 mg/dL (0.55-1.02); Estimated GFR 34.64 (mL/min/1.73m2)
[2021-07-05 08:30] VITALS: BP 114/61; PULSE 54; RESP 18; TEMP 36.7; O2SAT 98
[2021-07-05 09:00] VITALS: BP 116/74; PULSE 50; RESP 18; TEMP 36.9; O2SAT 97
[2021-07-05 09:29] VITALS: BP 143/74; PULSE 50; RESP 18; TEMP 36.7; O2SAT 96
[2021-07-06] MEDS: Normal Saline Flush 10 ML SYR IVP (07:35)
[2021-07-06] MEDS: IMMUNE GLOBULIN 40 GM/400 ML BTL IVPB (07:36)
[2021-07-06 07:40] VITALS: BP 125/69; PULSE 57; RESP 18; TEMP 36.2; O2SAT 97
[2021-07-06 07:55] VITALS: BP 122/67; PULSE 58; RESP 16; TEMP 36.6; O2SAT 95
[2021-07-06 08:10] VITALS: BP 128/76; PULSE 55; RESP 16; TEMP 36.6; O2SAT 94
[2021-07-06 08:43] VITALS: BP 115/71; PULSE 55; RESP 18; TEMP 36.8; O2SAT 95
[2021-07-06 09:15] VITALS: BP 122/64; PULSE 53; RESP 18; TEMP 36.5; O2SAT 96
[2021-07-07] MEDS: IMMUNE GLOBULIN 40 GM/400 ML BTL IVPB (07:56)
[2021-07-07 08:00] VITALS: BP 114/71; PULSE 54; RESP 17; TEMP 36.7; O2SAT 96
[2021-07-07] MEDS: Normal Saline Flush 10 ML SYR IVP (08:04)
[2021-07-07 08:15] VITALS: BP 119/73; PULSE 57; RESP 16; TEMP 36.7; O2SAT 96
[2021-07-07 08:30] VITALS: BP 107/62; PULSE 54; RESP 17; TEMP 36.7; O2SAT 97
[2021-07-07 09:00] VITALS: BP 126/73; PULSE 55; RESP 17; TEMP 36.7; O2SAT 96
[2021-07-07 09:34] VITALS: BP 115/66; PULSE 54; RESP 17; TEMP 36.6; O2SAT 98
[2021-07-08 07:42] VITALS: BP 131/83; PULSE 54; RESP 20; TEMP 35.8; O2SAT 99
[2021-07-08] MEDS: IMMUNE GLOBULIN 40 GM/400 ML BTL IVPB (07:57)
[2021-07-08 08:00] LABS: CREATININE 1.5 mg/dL (0.55-1.02); Estimated GFR 34.64 (mL/min/1.73m2)
[2021-07-08 08:10] VITALS: BP 120/71; PULSE 58; RESP 20; TEMP 36.3; O2SAT 96
[2021-07-08 08:25] VITALS: BP 126/75; PULSE 57; RESP 18; TEMP 36.4; O2SAT 97
[2021-07-08] MEDS: Normal Saline Flush 10 ML SYR IVP (08:54)
[2021-07-08 09:00] VITALS: BP 122/71; PULSE 46; RESP 18; TEMP 36.3; O2SAT 97
[2021-07-08 09:29] VITALS: BP 125/72; PULSE 50; RESP 18; TEMP 36.4; O2SAT 99
[2021-07-08 10:00] VITALS: BP 124/67; PULSE 52; RESP 18; TEMP 36.2; O2SAT 99
== END 2021-07-17 23:59 | disposition home or self-care (01) ==
LOC: INF 01:32
PROVIDERS: PCP Family Medicine; Visit Provider Psychiatry & Neurology Neurology
DX: G62.89 Other specified polyneuropathies (principal); D86.89 Sarcoidosis of other sites
CPT/HCPCS: 36415; 96365; 96366; 82565; J1459

== ENCOUNTER 2021-08-16 02:02 | Outpatient (RCR) | payer MEDICARE, BC, SELFPAY ==
[2021-07-18 00:05] VITALS: BP 124/67; PULSE 52; RESP 18; TEMP 36.2
[2021-08-15 07:45] VITALS: BP 114/69; PULSE 79; RESP 18; TEMP 36.2; O2SAT 98
[2021-08-15] MEDS: IMMUNE GLOBULIN 40 GM/400 ML BTL IVPB (07:46)
[2021-08-15] MEDS: Normal Saline Flush 10 ML SYR IVP (07:52)
[2021-08-15 08:07] VITALS: BP 104/62; PULSE 56; RESP 18; TEMP 36.5; O2SAT 98
[2021-08-15 08:23] VITALS: BP 113/63; PULSE 56; RESP 18; TEMP 36.5; O2SAT 97
[2021-08-15 09:24] VITALS: BP 137/68; PULSE 53; RESP 18; TEMP 36.6; O2SAT 99
[2021-08-16] MEDS: IMMUNE GLOBULIN 40 GM/400 ML BTL IVPB (08:02)
[2021-08-16 08:05] VITALS: BP 115/60; PULSE 50; RESP 18; TEMP 36.3; O2SAT 99
[2021-08-16] MEDS: Normal Saline Flush 10 ML SYR IVP (08:07)
[2021-08-16 08:16] LABS: CREATININE 1.3 mg/dL (0.55-1.02); Estimated GFR 40.86 (mL/min/1.73m2)
[2021-08-16 08:22] VITALS: BP 120/69; PULSE 57; RESP 18; TEMP 36.5; O2SAT 99
[2021-08-16 08:37] VITALS: BP 115/70; PULSE 56; RESP 20; TEMP 36.6; O2SAT 97
[2021-08-16 09:10] VITALS: BP 133/81; PULSE 46; RESP 18; TEMP 35.7; O2SAT 100
[2021-08-16 09:40] VITALS: BP 155/72; PULSE 53; RESP 18; TEMP 36; O2SAT 98
== END 2021-08-16 23:59 | disposition home or self-care (01) ==
LOC: INF 02:02
PROVIDERS: PCP Family Medicine; Visit Provider Psychiatry & Neurology Neurology
DX: G62.89 Other specified polyneuropathies (principal); D86.89 Sarcoidosis of other sites
CPT/HCPCS: 36415; 96365; 96366; 82565; J1459

== ENCOUNTER 2021-08-19 01:50 | Outpatient (RCR) | payer MEDICARE, BC, SELFPAY ==
[2021-08-17 00:14] VITALS: BP 155/72; PULSE 53; RESP 18; TEMP 36
[2021-08-17] MEDS: IMMUNE GLOBULIN 40 GM/400 ML BTL IVPB (07:57)
[2021-08-17] MEDS: Normal Saline Flush 10 ML SYR IVP (07:57)
[2021-08-17 08:13] VITALS: BP 145/76; PULSE 62; RESP 18; TEMP 36.7; O2SAT 99
[2021-08-17 08:29] VITALS: BP 136/82; PULSE 65; RESP 17; TEMP 36.6; O2SAT 100
[2021-08-17 08:57] VITALS: BP 133/66; PULSE 42; RESP 16; TEMP 36.5; O2SAT 97
[2021-08-17 09:30] VITALS: BP 137/72; PULSE 63; RESP 16; TEMP 36.4; O2SAT 96
[2021-08-18 07:45] VITALS: BP 132/71; PULSE 60; RESP 18; TEMP 36.4; O2SAT 99
[2021-08-18 07:49] VITALS: BP 132/72; PULSE 60; RESP 18; TEMP 36.4; O2SAT 99
[2021-08-18] MEDS: IMMUNE GLOBULIN 40 GM/400 ML BTL IVPB (07:51)
[2021-08-18] MEDS: Normal Saline Flush 10 ML SYR IVP (07:52)
[2021-08-18 08:20] VITALS: BP 129/60; PULSE 66; RESP 16; TEMP 36.5; O2SAT 98
[2021-08-18 08:37] VITALS: BP 135/75; PULSE 58; RESP 18; TEMP 36.6; O2SAT 97
[2021-08-18 09:12] VITALS: BP 157/68; PULSE 58; RESP 18; TEMP 36.7; O2SAT 97
[2021-08-18 09:44] VITALS: BP 147/72; PULSE 60; RESP 17; TEMP 36.5; O2SAT 98
[2021-08-19 07:45] VITALS: BP 118/70; PULSE 58; RESP 17; TEMP 36.6; O2SAT 98
[2021-08-19] MEDS: IMMUNE GLOBULIN 40 GM/400 ML BTL IVPB (07:45)
[2021-08-19] MEDS: Normal Saline Flush 10 ML SYR IVP (07:47)
[2021-08-19 08:00] VITALS: BP 118/63; PULSE 59; RESP 17; TEMP 36.5; O2SAT 96
[2021-08-19 08:11] LABS: CREATININE 1.4 mg/dL (0.55-1.02); Estimated GFR 37.51 (mL/min/1.73m2)
[2021-08-19 08:15] VITALS: BP 122/75; PULSE 56; RESP 17; TEMP 36.6; O2SAT 98
[2021-08-19 08:45] VITALS: BP 137/67; PULSE 51; RESP 17; TEMP 36.6; O2SAT 98
[2021-08-19 09:15] VITALS: BP 134/81; PULSE 60; RESP 17; TEMP 36.7; O2SAT 96
[2021-08-19 09:45] VITALS: BP 132/67; PULSE 58; RESP 17; TEMP 36.6; O2SAT 98
== END 2021-09-16 23:59 | disposition home or self-care (01) ==
LOC: INF 01:50
PROVIDERS: PCP Family Medicine; Visit Provider Psychiatry & Neurology Neurology
DX: G62.89 Other specified polyneuropathies (principal); D86.89 Sarcoidosis of other sites
CPT/HCPCS: 36415; 96365; 96366; 82565; J1459

== ENCOUNTER → 2021-08-22 08:18 | Outpatient (BNVA) | payer MEDICARE, BC, SELFPAY | PROVIDERS: PCP Family Medicine; Visit Provider Psychiatry & Neurology Neurology | DX: G62.9 Polyneuropathy, unspecified (principal); G56.03 Carpal tunnel syndrome, bilateral upper limbs; G56.21 Lesion of ulnar nerve, right upper limb | CPT/HCPCS: 99213 ==

== ENCOUNTER → 2021-09-15 07:56 | Outpatient (BNVA) | payer MEDICARE, BC, SELFPAY | PROVIDERS: PCP Family Medicine; Referring Provider Family Medicine; Visit Provider Surgery | DX: Z12.11 Encounter for screening for malignant neoplasm of colon (principal); Z86.010 Personal history of colon polyps ==

== ENCOUNTER 2021-10-03 01:12 | Outpatient (CLI) | payer MEDICARE, SELFPAY ==
[2021-10-03 10:55] LABS: Source Nasal/Nares
[2021-10-03 14:39] LABS: COVID-19 PCR Negative (Negative)
== END 2021-10-03 01:13 | disposition home or self-care (01) ==
LOC: LBO 01:13
PROVIDERS: PCP Family Medicine; Visit Provider Surgery
DX: Z20.822 Contact with and (suspected) exposure to COVID-19 (principal)
CPT/HCPCS: 87635

== ENCOUNTER 2021-10-05 09:09 | Day surgery (SDC) | payer MEDICARE, SELFPAY ==
[2021-10-05] VITALS (7 sets, daily range): BP systolic 89–120; BP diastolic 38–78; PULSE 51–63; RESP 11–18; TEMP 36.3–36.4; TEMPC 36.3; O2SAT 91–100; BMI 33.1
--- NOTE | 2021-10-05 06:41 | W.COLOREPORT ---
Colonoscopy Report Date of procedure: 10/05/21 Pre-op diagnosis general: Hx of polyps Post-op diagnosis procedure note: same (polyps and mild diverticulosis) Procedure: Colonoscopy with polypectomy Surgeon: Sally Degroot Anesthesia Type: General:No Airway (Naveed Sultana, ISABEL) Estimated blood loss (mL): 2 Pathology: other (ascending polyp x2, Transverse polyp and rectal polyp) Complications: None Disposition: same day Indications: Jen is a pleasant 66-year-old female who had a colonoscopy last year in August and was noted to have 16 polyps 15 of which were tubular and sessile serrated adenomas. She is back today to discuss another colonoscopy. There have been no changes in her health over the last year. Her cardiomyopathy and paroxysmal atrial fibrillation are stable at this time. I did discuss with her that she probably should have some genetic testing to help with risk assessment of colon cancer. I will refer her after this next colonoscopy. We discussed the colonoscopy and the prep. Risks, benefits and complications have been reviewed. Complications include but are not limited to bleeding, pain, perforation, missed small lesion/polyp, sore throat, aspiration and adverse reaction to the medications. Questions were entertained and answered to their satisfaction and they wished to proceed. No guarantees were given or implied. Proceed with colonoscopy under sedation Prep: Miralax/Dulcolax Procedure Start Time: 09:57 Procedure End Time: 10:20 Retraction Time: 15 minutes Findings: 4 small polyps mild sigmoid diverticulosis Procedure Description: After informed consent was obtained the patient was taken to the procedure room and placed in a left decubitous position. Monitors were applied and a time out was done. The patients name, date of , procedure, allergies to medications and metal in their body was reviewed. The patient was then sedated. Once sedated and comfortable a rectal exam was done. External exam was normal. Internal exam revealed a normal sphincter tone and no palpable masses. The scope was then introduced and retro-flexed. No internal hemorrhoids, polyps or masses were identified on retro-flexion. The scope was then advanced to the cecum without difficulty. The ileocecal vlave and appendiceal orifice were identified. The prep was good. The scope was then slowly retracted over 15 minutes back into the rectum. Polyps were removed with cold forceps in the ascending colon x2, transverse colon and rectal polyp. There was mild sigmoid diverticulosis noted. The scope was removed and the patient was woken up and taken back to Same day surgery in stable condition. The patient tolerated the procedure well and there were no immediate complications. Follow up: The patient should follow up in 3 years unless they develop changes in bowel habits or other new gastrointestinal complaints.
--- NOTE | 2021-10-05 06:42 | W.PM.DSUDISC ---
Discharge Plan Disposition Patient Disposition: HOME Condition: Good Discharge Details Reason For Visit: Colonoscopy Attending Provider: Sally Degroot Primary Care Provider: Sammie Cordero Home Meds and New Rx's Prescriptions: Continued furosemide 20 mg tablet 20 mg PO DAILY RF: 0 alendronate 70 mg tablet 70 mg PO QWEEK RF: 0 Entresto 49-51 mg tablet 1 tab PO BID Qty: 180 RF: 3 Lumigan 0.01 % drops 1 drp ophthalmic (eye) HS RF: 0 apixaban 5 mg tablet 5 mg PO BID Qty: 120 RF: 3 diltiazem HCl 180 mg capsule,extended release 24hr 180 mg PO DAILY Qty: 90 RF: 6 cholecalciferol (vitamin D3) 50 mcg (2,000 unit) capsule 50 mcg PO DAILY RF: 0 Multi Complete with Iron 1 EACH tablet 1 tab-cap PO DAILY RF: 0 ascorbic acid (vitamin C) [Vitamin C] 500 MG tablet 500 mg PO DAILY RF: 0 vitamin E 400 UNIT capsule 400 unit PO DAILY Qty: 1 RF: 0 garlic 1 EACH capsule 1 ea PO DAILY RF: 0 Fish Oil 1 EACH capsule 1 ea PO DAILY RF: 0 calcitriol 0.25 mcg capsule 0.25 mcg PO DAILY RF: 0 thiamine HCl (vitamin B1) [Vitamin B-1] 100 mg Tablet 100 mg PO DAILY RF: 0 acetaminophen [Tylenol] 325 mg Tablet 325 - 650 mg PO Q4H PRN PRNQty: 0 RF: 0 metoprolol succinate 100 mg tablet extended release 24 hr 150 mg PO HS RF: 0 Discontinued bisacodyl [Dulcolax (bisacodyl)] 5 mg tablet,delayed release (DR/EC) 5 mg PO ONCE Qty: 4 RF: 0 polyethylene glycol 3350 17 gram/dose powder 17 g PO ONCE Qty: 238 RF: 0 Discharge Instructions Instructions: Diverticulosis (DC), Colorectal Polyps (DC) Additional Instructions: Findings: Mild diverticulosis 4 small polyps Follow up: 3 years Please call if you develop: fevers >101.5 Nausea or Vomiting Abdominal pain that is not transient Rectal bleeding that is more then a tbsp A hard abdomen and inability to pass gas DAY SURGERY UNIT POST ENDOSCOPY INSTRUCTIONS Instructions for everyone who is given Anesthesia: For your safety, please do the following for the next 24 Hours: a. Do not drive or operate dangerous equipment b. Do not drink alcohol beverages or use any recreational drugs for the first 24 hours or while taking pain medications. The medications in your body may have a reaction that can be dangerous. c. Do not make any important decisions or sign any important papers 1. Generally there are no restrictions on your activity after a day or so has gone by, but you may feel a bit fatigued for a few days. 2. After you arrive home you may have a light meal and return to a normal diet as you can tolerate it without feeling sick to your stomach. 3. After surgery, you may feel pain or discomfort. This should be only transient, but if it persists please contact your doctor. 4. If there are any questions regarding the findings of your procedure, please feel free to contact your doctor. 6. If you are unable to contact your doctor with a problem, contact the hospital at [phone]. 7. Continue all your regular medications unless directed otherwise. I understand the above instructions and have no questions. Signature of Patient or Responsible Adult Escort Date/Time Name of Responsible Adult Escort Signature of Nurse Date/Time Activity:: Activity as Tolerated Diet:: high fiber diet Discharge Orders Discharge Orders: Discharge Order (Routine); Ordered 10/05/21 Ordered By: Sally Degroot
--- NOTE | 2021-10-05 09:09 | ANES.PREOP_ITS ---
General Info Date of Service Date Performed: 10/05/21 Height: 5 ft 8 in Weight: 98.94 kg Body Mass Index (BMI): 33.1 Surgical Procedure: Operation Date: 10/05/21 10:50 Proposed Procedures Side Surgeon omar Degroot MD Meds Allergies and Home Medications Allergies Allergy/AdvReac Type Severity Reaction Status Date / Time feathers Allergy Intermediate Watery Verified 10/05/21 09:26 eyes, sneezing Dust Allergy Intermediate Watery Uncoded 10/05/21 09:26 eyes, sneezing, Environmental Allergy Intermediate Running Uncoded 10/05/21 09:26 nose, watery eyes, sneezing Home Medication Medication Instructions Recorded Multi Complete with Iron 1 tab-cap PO DAILY tab-cap 05/15/13 ascorbic acid (vitamin C) [Vitamin 500 mg PO DAILY 05/15/13 C] vitamin E 400 unit PO DAILY #1 05/15/13 garlic 1 ea PO DAILY 05/21/14 Fish Oil 1 ea PO DAILY 06/10/15 thiamine HCl (vitamin B1) [Vitamin 100 mg PO DAILY 12/24/18 B-1] acetaminophen [Tylenol] 325 - 650 mg PO Q4H PRN PRN #0 tab 12/31/18 alendronate 70 mg tablet 70 mg PO QWEEK 02/21/19 furosemide 20 mg tablet 20 mg PO DAILY 08/28/19 bimatoprost 0.01 % eye drops 1 drp OPHTHALMIC (EYE) HS 08/19/20 sacubitril 49 mg-valsartan 51 mg 1 tab PO BID #180 tab 11/25/20 tablet cholecalciferol (vitamin D3) 50 50 mcg PO DAILY 01/17/21 mcg (2,000 unit) capsule apixaban 5 mg tablet 5 mg PO BID #120 tab 05/31/21 diltiazem HCl 180 mg 180 mg PO DAILY #90 cap 05/31/21 capsule,extended release 24 hr calcitriol 0.25 mcg capsule 0.25 mcg PO DAILY 08/18/21 bisacodyl 5 mg tablet,delayed 5 mg PO ONCE #4 tab 09/15/21 release polyethylene glycol 3350 17 17 g PO ONCE #238 g 09/15/21 gram/dose oral powder metoprolol succinate 150 mg PO HS 10/03/21 Current Visit Medications: Current Medications Generic Name Dose Route Start Last Admin Trade Name Freq PRN Reason Stop Dose Admin Hyoscyamine Sulfate 0.125 mg 10/05/21 06:43 Hyoscyamine 0.125 Mg Sl/Oral/Chew SL DIRECTED PRN Ringer's Solution 1,000 mls @ 80 mls/hr 10/05/21 06:00 IV 10/17/21 23:59 [facility] IV Miscellaneous Supplies 1 each 10/05/21 06:00 Iv Access IV 10/17/21 23:59 DIRECTED DELIA Ondansetron HCl 4 mg 10/05/21 06:43 Ondansetron 4 Mg/2 Ml Vial IVP Q4H PRN PRN Nausea / Vomiting Sodium Chloride 0 ml 10/05/21 06:00 Normal Saline Flush 10 Ml Syr IV 10/17/21 23:59 PRN PRN Sodium Chloride 0 ml 10/05/21 06:00 Normal Saline 10 Ml Vial IJ 10/17/21 23:59 DIRECTED PRN Sterile Water 0 ml 10/05/21 06:00 Water,Injection,Sterile 10 Ml Vial IJ 10/17/21 23:59 DIRECTED PRN PFSH Active Problems Active Problems: Problem Status Onset Code Hyperparathyroidism due to renal insufficiency N25.81 Screening for colon cancer Z12.11 Serrated adenoma of colon D12.6 Tubular adenoma of colon D12.6 Hyperplastic colon polyp K63.5 Hypertension 05/21/14 I10 Acute renal failure N17.9 Adnexal mass N94.9 DVT prophylaxis Cardiomyopathy I42.9 Medical History Medical History Atrial fibrillation Carpal tunnel syndrome on both sides Chronic kidney disease, stage 3 f/u a@ [facility] [place] per pt. stated she was told she didn't have this dx Complaint of paresthesia Dilated cardiomyopathy Discharge planning issues Essential hypertension High triglycerides Hypercalcemia Hyperlipidemia (05/15/13) Lung nodule Lytic lesion of bone on x-ray Menopausal syndrome Osteoporosis Peripheral neuropathy Positive fecal immunochemical test 2020 Prediabetes Sarcoidosis Ulnar neuropathy of right upper extremity Vitamin D deficiency Surgical History Surgical History Appendectomy Diagnostic Laproscopy (~1980) During infertility evaluation when younger Hx of colonoscopy Oophrectomy, Left Left ovary present at the time of pelvic ultrasound 12/24/2018 S/P right oophorectomy Tobacco Smoking/Tobacco Use Status: Never Alcohol Alcohol Intake: never Substance Use Substance use: Never Substance use type: does not use Vital Signs and Lab Results Lab Results Blood Type / Crossmatch: No Data to Display Complete Blood Count: No Data to Display Complete Metabolic Panel: No Data to Display Liver Function Panel: No Data to Display Coagulation Panel: No Data to Display Cardiac Panel: No Data to Display Arterial Blood Gas: No Data to Display Venous Blood Gas: No Data to Display Pancreas Panel: No Data to Display Thyroid Panel: No Data to Display Infectious Disease: Coronavirus (COVID-19)(PCR) Negative (Negative) 10/03/21 08:34 10/03/21 Coronavirus 2019 Source Nasal/Nares 10/03/21 08:34 10/03/21 Blood Cultures: No Data to Display Toxicology Panel: No Data to Display Imaging and Studies Imaging and Studies Study information below may be from another EMR and interpreted by another provider. Please see original notes in EMR for more complete details. Stress Test Summary: Date of study: 08/03/2017 (Report amended ) *PATIENT PRESENTATION* Height: 172.7cm (68in) Blood Pressure: Weight: 90.9kg (200lb) BSA: 2.11m^2 Ordering physician: Natasha Lopez Impressions: - Normal perfusion by Tc99m Sestamibi Imaging. - Abnormal contraction consistent with cardiomyopathy. Summary: 1. Myocardial perfusion imaging: No myocardial perfusion defects noted. 2. The calculated left ventricular ejection fraction after stress: 28%. LV global systolic function is severely reduced. Echocardiogram Summary: Admission Date: 05/26/20 : 1955 Age: 65 Exam(s) a US:US echocardiogram APPROVED REPORT EXAM: Comprehensive 2D, Doppler, and color-flow Echocardiogram Patient Location: Out-Patient Sheet Folder: Rajani Salas RDCS (AE) Indications: Cardiomyopathy, Sarcoid myocarditis Other Information Study Quality: Adequate Conclusion Left Ventricle : Left ventricle is severely dilated. Left ventricular systolic function is mildly decreased. There is normal left ventricular wall thickness. There is global mild hypokinesis of the left ventricle. Mild diastolic dysfuncti on is present (impaired relaxation pattern). LVEF is 43%. Right Ventricle : The right ventricle is normal size. The right ventricular systolic function is normal. Atria : Left atrium is mildly dilated. Right atrium is borderline dilated. Valves: There are no hemodynamically significant valvular lesions. Great Vessels : The aortic root is normal in size. The ascending aorta is mildly dilated. Aortic arch is normal in caliber. IVC is normal in size and collapses >50% with inspiration. Compared to echocardiogram from 09/06/2018, there is no significant change. Anesthesia Assessment and Plan Anesthesia History Personal History: No History of Anesthesia Complications Family History: No Family History of Anesthesia Complications Exercise Tolerance Exercise Tolerance: Metabolic Equivalents>4 Pertinent Negatives Pertinent Negatives: No Symptoms of GERD, No Major Cardiovascular Symptoms or Complaints, No Major Pulmonary Symptoms or Complaints and No History of CVA/TIA Cardiac & Pulmonary Exam Cardiac Exam: Normal S1/S2 Heart Sounds Pulmonary Exam: Clear Bilateral Breath Sounds Implantable Cardiac Device Does patient have a Pacemaker or an ICD?: No Airway Exam Known Difficult Airway: No Mallampati Class: 4 Mouth Opening: Normal (> 3cm) Thyromental Distance: Greater than 3 cm Neck Range of Motion: Full ROM Neck Circumference: Normal Teeth Condition: Normal Dentition ASA Classification ASA Score: ASA 2 Emergency Case?: No NPO Status NPO Status: NPO Clears >2 hours, Solids >8 hours Anesthesia Plan Resuscitation Status: Full Code Anesthesia Technique: General Anesthesia Airway Planned: Natural Airway Monitors Used: Standard Monitors
[2021-10-05] MEDS: Lactated Ringers 1,000 ML 80 ML IV (09:30)
--- NOTE | 2021-10-05 10:00 | BOWEL_PTH ---
PATIENT: Jen Guevara LOC: [facility] U#:[id number] AGE/SX: 66/F ROOM: RE10/05/[address]: Sally Degroot MD : 1955 BED: DIS: 10/05/2021 SPEC #: [id number] RECD: 10/05/21 12:49 STATUS: RYAN REQ #: [id number] ADIN: 10/05/21 10:[address]: Sally Degroot DEPT: Surgical Specimen RECD BY: Janice Townsend ENTERED: 10/05/21 12:52 SP TYPE: Bowel OTHR DR: Sammie Cordero Tissues: 1 - BIOPSY BOWEL 2 - BIOPSY BOWEL 3 - BIOPSY BOWEL Procedures: GROSS AND MICRO LEVEL 4 Comments: [id number]
--- NOTE | 2021-10-05 10:32 | W.ANESPOSTOP ---
Postoperative Evaluation Date, Time and Location Date Performed: 10/05/21 Time Performed: 10:32 Patient Location: Day Surgery Unit Vital Signs Most Recent Imported Vital Signs: Most Recent Vital Signs Temp Pulse Resp BP Pulse Ox 36.3 C L 63 16 120/78 100 10/05/21 09:21 10/05/21 09:21 10/05/21 09:21 10/05/21 09:21 10/05/21 09:21 Most Recent Manually Entered Vital Signs: Adult Blood Pressure: 89/38 Heart Rate: 51 Respirations: 11 Oxygen Saturation (%): 95 Temperature (C): 36.3 C Pain Score (0-10 Scale): 0 Pain Score Most Recent Pain Score: Most Recent Pain Score Pain Level 0 10/05/21 09:21 Assessment Mental Status: Awake (Alert & Oriented to Patient Baseline) Airway and Respiratory Function: Patent airway with normal (patient baseline) respiratory exam Cardiovascular Function: Hemodynamically Stable Hydration Status: Adequately Hydrated Nausea & Vomiting: No Nausea or Vomiting Pain: Pt. Denies Any Pain Peripheral Nerve Block: Patient did not receive a nerve block
== END 2021-10-05 09:10 | disposition home or self-care (01) ==
LOC: SUR 09:10
PROVIDERS: PCP Family Medicine; Visit Provider Surgery
PROC: 0DJD8ZZ Inspection of Lower Intestinal Tract, Via Natural or Artificial Opening Endoscopic (ICD-10-PCS; CPT 45378; principal; 2021-10-05 10:45)
DX: Z12.11 Encounter for screening for malignant neoplasm of colon (principal); D12.2 Benign neoplasm of ascending colon; K62.1 Rectal polyp; Z86.010 Personal history of colon polyps; I48.91 Unspecified atrial fibrillation; R73.03 Prediabetes; K57.30 Diverticulosis of large intestine without perforation or abscess without bleeding; D12.3 Benign neoplasm of transverse colon
CPT/HCPCS: 45380; 88305; J2001

== ENCOUNTER 2021-10-14 03:20 | Outpatient (RCR) | payer MEDICARE, SELFPAY ==
[2021-09-17 00:06] VITALS: BP 132/67; PULSE 58; RESP 17; TEMP 36.6
[2021-10-10 07:50] VITALS: BP 125/71; PULSE 47; RESP 17; TEMP 36.1; O2SAT 97
[2021-10-10] MEDS: IMMUNE GLOBULIN 40 GM/400 ML BTL IVPB (07:51)
[2021-10-10] MEDS: Normal Saline Flush 10 ML SYR IVP (07:51)
[2021-10-10 08:10] VITALS: BP 95/62; PULSE 45; RESP 17; TEMP 36.7; O2SAT 95
[2021-10-10 08:25] VITALS: BP 107/61; PULSE 54; RESP 16; TEMP 36.2; O2SAT 97
[2021-10-10 08:48] VITALS: BP 111/58; PULSE 73; RESP 17; TEMP 36.2; O2SAT 100
[2021-10-10 09:18] VITALS: BP 109/63; PULSE 50; RESP 17; TEMP 36.3; O2SAT 99
[2021-10-10 09:45] VITALS: BP 100/59; PULSE 49; RESP 17; TEMP 36.4; O2SAT 99
[2021-10-11] MEDS: IMMUNE GLOBULIN 40 GM/400 ML BTL IVPB (07:44)
[2021-10-11] MEDS: Normal Saline Flush 10 ML SYR IVP (07:45)
[2021-10-11 07:50] VITALS: BP 105/65; PULSE 59; RESP 16; TEMP 36.4; O2SAT 95
[2021-10-11 08:05] VITALS: BP 104/69; PULSE 59; RESP 18; TEMP 36.3; O2SAT 95
[2021-10-11 08:06] LABS: CREATININE 1.6 mg/dL (0.55-1.02); Estimated GFR 32.15 (mL/min/1.73m2)
[2021-10-11 08:20] VITALS: BP 98/65; PULSE 64; RESP 18; TEMP 36.5; O2SAT 100
[2021-10-11 08:53] VITALS: BP 117/65; PULSE 48; RESP 16; TEMP 36.6; O2SAT 99
[2021-10-11 09:23] VITALS: BP 129/76; PULSE 54; RESP 16; TEMP 36.3; O2SAT 98
[2021-10-12] MEDS: Normal Saline Flush 10 ML SYR IVP (07:33)
[2021-10-12] MEDS: IMMUNE GLOBULIN 40 GM/400 ML BTL IVPB (07:34)
[2021-10-12 07:35] VITALS: BP 125/74; PULSE 59; RESP 17; TEMP 36.3; O2SAT 99
[2021-10-12 07:50] VITALS: BP 104/62; PULSE 56; RESP 17; TEMP 36.6; O2SAT 100
[2021-10-12 08:05] VITALS: BP 108/68; PULSE 61; RESP 16; TEMP 36.5; O2SAT 98
[2021-10-12 08:25] VITALS: BP 120/68; PULSE 56; RESP 18; TEMP 36.5; O2SAT 99
[2021-10-12 08:58] VITALS: BP 92/62; PULSE 58; RESP 17; TEMP 36.3; O2SAT 100
[2021-10-12 09:28] VITALS: BP 121/75; PULSE 56; RESP 17; TEMP 36.5; O2SAT 99
[2021-10-13 07:40] VITALS: BP 110/60; PULSE 55; RESP 18; TEMP 36.8; O2SAT 99
[2021-10-13] MEDS: IMMUNE GLOBULIN 40 GM/400 ML BTL IVPB (07:40)
[2021-10-13] MEDS: Normal Saline Flush 10 ML SYR IVP (07:41)
[2021-10-13 08:15] VITALS: BP 102/64; PULSE 51; RESP 17; TEMP 35.9; O2SAT 99
[2021-10-13 08:38] VITALS: BP 107/69; PULSE 53; RESP 20; TEMP 36.3; O2SAT 98
[2021-10-13 09:03] VITALS: BP 105/66; PULSE 45; RESP 20; TEMP 36.7; O2SAT 99
[2021-10-13 09:33] VITALS: BP 117/67; PULSE 48; RESP 18; TEMP 36.6; O2SAT 100
[2021-10-14 07:35] VITALS: BP 122/77; PULSE 56; RESP 17; TEMP 36.5; O2SAT 98
[2021-10-14] MEDS: Normal Saline Flush 10 ML SYR IVP (07:41)
[2021-10-14] MEDS: IMMUNE GLOBULIN 40 GM/400 ML BTL IVPB (07:41)
[2021-10-14 07:55] VITALS: BP 123/71; PULSE 52; RESP 16; TEMP 36.6; O2SAT 98
[2021-10-14 08:06] LABS: CREATININE 1.6 mg/dL (0.55-1.02); Estimated GFR 32.15 (mL/min/1.73m2)
[2021-10-14 08:10] VITALS: BP 124/73; PULSE 50; RESP 17; TEMP 36.6; O2SAT 98
[2021-10-14 08:40] VITALS: BP 119/69; PULSE 56; RESP 16; TEMP 36.5; O2SAT 98
[2021-10-14 09:10] VITALS: BP 134/75; PULSE 53; RESP 17; TEMP 36.6; O2SAT 98
== END 2021-10-17 23:59 | disposition home or self-care (01) ==
LOC: INF 03:20
PROVIDERS: PCP Family Medicine; Visit Provider Psychiatry & Neurology Neurology
DX: G62.89 Other specified polyneuropathies (principal); D86.89 Sarcoidosis of other sites
CPT/HCPCS: 36415; 96365; 96366; 82565; J1459

== ENCOUNTER 2021-12-05 14:49 | Outpatient (REF) | payer MEDICARE, SELFPAY ==
[2021-12-05 11:13] LABS: HCT 42.6 % (36.0-46.0); HGB 13.6 g/dL (11.2-15.7); MCH 29.3 pg (27.0-33.0); MCHC 31.9 % (32.0-36.0); MCV 91.8 fL (80-95); Platelet Count 206 10^3/uL (130-400); RBC 4.64 10^6/uL (3.93-5.22); RDW 14.1 % (11.7-14.6); RDW-SD 47.8 fL; WBC 3.48 10^3/uL (4.4-10.8)
[2021-12-05 12:12] LABS: ALT 21 U/L (14-59); AST 15 U/L (15-37); Albumin 3.7 g/dL (3.4-5.0); Alkaline Phosphatase 84 U/L (46-116); Anion Gap 9.1 mmol/L (3-11); BUN 33 mg/dL (7-18); Bilirubin, Total 0.4 mg/dL (0.2-1.0); CO2 23.9 mmol/L (21.0-32.0); CREATININE 1.5 mg/dL (0.55-1.02); Calcium 8.5 mg/dL (8.5-10.1); Chloride 105 mmol/L (98-107); Estimated GFR 34.64 (mL/min/1.73m2); Glucose 96 mg/dL (74-106); PHOSPHORUS 4.2 mg/dL (2.6-4.7); Potassium 4.3 mmol/L (3.5-5.1); Sodium 138 mmol/L (136-145); Total Protein 8.4 g/dL (6.4-8.2)
[2021-12-05 12:13] LABS: Vitamin D 25 Total 29.5 ng/mL (30-100)
[2021-12-05 12:21] LABS: Hemoglobin A1C 6.2 % (<5.7)
[2021-12-06 11:06] LABS: Parathyroid Hormone,Intact 98 pg/mL (19-88)
== END 2021-12-05 14:50 | disposition home or self-care (01) ==
LOC: NCHCN 14:49
PROVIDERS: PCP Family Medicine; Visit Provider Family Medicine
DX: R73.03 Prediabetes (principal); E55.9 Vitamin D deficiency, unspecified; I10 Essential (primary) hypertension; N18.30 Chronic kidney disease, stage 3 unspecified; N25.81 Secondary hyperparathyroidism of renal origin
CPT/HCPCS: 80053; 82306; 85027; 83036; 83970; 84100

== ENCOUNTER 2021-12-09 02:56 | Outpatient (RCR) | payer MEDICARE, SELFPAY ==
[2021-10-18 00:05] VITALS: BP 134/75; PULSE 53; RESP 17; TEMP 36.6
[2021-12-05 07:45] VITALS: BP 110/71; PULSE 51; RESP 17; TEMP 36.4; O2SAT 96
[2021-12-05] MEDS: IMMUNE GLOBULIN 40 GM/400 ML BTL IVPB (07:53)
[2021-12-05] MEDS: Normal Saline Flush 10 ML SYR IVP (07:54)
[2021-12-05 08:15] VITALS: BP 118/71; PULSE 47; RESP 18; TEMP 36.5; O2SAT 97
[2021-12-05 08:50] VITALS: BP 123/69; PULSE 49; RESP 17; TEMP 36.2; O2SAT 96
[2021-12-05 09:20] VITALS: BP 127/78; PULSE 50; RESP 18; TEMP 36.2; O2SAT 96
[2021-12-06] MEDS: IMMUNE GLOBULIN 40 GM/400 ML BTL IVPB (07:56)
[2021-12-06] MEDS: Normal Saline Flush 10 ML SYR IVP (07:57)
[2021-12-06 08:00] VITALS: BP 116/67; PULSE 54; RESP 18; TEMP 36.6; O2SAT 97
[2021-12-06 08:15] VITALS: BP 123/68; PULSE 50; RESP 16; TEMP 36.7; O2SAT 96
[2021-12-06 08:30] VITALS: BP 125/72; PULSE 55; RESP 16; TEMP 36.4; O2SAT 97
[2021-12-06 08:42] LABS: CREATININE 1.6 mg/dL (0.55-1.02); Estimated GFR 32.15 (mL/min/1.73m2)
[2021-12-06 09:00] VITALS: BP 117/62; PULSE 52; RESP 16; TEMP 36.5; O2SAT 99
[2021-12-06 09:30] VITALS: BP 117/62; PULSE 53; RESP 17; TEMP 36.4; O2SAT 98
[2021-12-07 07:46] VITALS: BP 121/64; PULSE 51; RESP 20; TEMP 36.9; O2SAT 99
[2021-12-07] MEDS: IMMUNE GLOBULIN 40 GM/400 ML BTL IVPB (07:48)
[2021-12-07] MEDS: Normal Saline Flush 10 ML SYR IVP (07:48)
[2021-12-07 08:00] VITALS: BP 132/80; PULSE 52; RESP 20; TEMP 36.7; O2SAT 97
[2021-12-07 08:15] VITALS: BP 121/68; PULSE 54; RESP 20; TEMP 36.8; O2SAT 97
[2021-12-07 09:01] VITALS: BP 117/76; PULSE 53; RESP 20; TEMP 36.7; O2SAT 98
[2021-12-08 07:50] VITALS: BP 118/71; PULSE 48; RESP 16; TEMP 36.5; O2SAT 99
[2021-12-08] MEDS: IMMUNE GLOBULIN 40 GM/400 ML BTL IVPB (08:01)
[2021-12-08] MEDS: Normal Saline Flush 10 ML SYR IVP (08:01)
[2021-12-08 08:15] VITALS: BP 138/75; PULSE 53; RESP 16; TEMP 36.5; O2SAT 98
[2021-12-08 08:30] VITALS: BP 138/74; PULSE 52; RESP 16; TEMP 36.3; O2SAT 99
[2021-12-08 09:00] VITALS: BP 136/86; PULSE 49; RESP 20; TEMP 36.6; O2SAT 98
[2021-12-08 09:30] VITALS: BP 133/76; PULSE 49; RESP 16; TEMP 36.7; O2SAT 99
[2021-12-09 07:35] VITALS: BP 138/70; PULSE 56; RESP 17; TEMP 36.4; O2SAT 99
[2021-12-09] MEDS: IMMUNE GLOBULIN 40 GM/400 ML BTL IVPB (07:39)
[2021-12-09] MEDS: Normal Saline Flush 10 ML SYR IVP (07:39)
[2021-12-09 07:58] VITALS: BP 133/71; PULSE 53; RESP 17; TEMP 36.6; O2SAT 99
[2021-12-09 08:16] LABS: CREATININE 1.5 mg/dL (0.55-1.02); Estimated GFR 34.64 (mL/min/1.73m2)
[2021-12-09 08:17] VITALS: BP 130/77; PULSE 50; RESP 17; TEMP 36.6; O2SAT 98
[2021-12-09 08:50] VITALS: BP 127/70; PULSE 52; RESP 17; TEMP 36.7; O2SAT 98
[2021-12-09 09:20] VITALS: BP 138/76; PULSE 58; RESP 16; TEMP 36.7; O2SAT 95
== END 2021-12-15 23:59 | disposition home or self-care (01) ==
LOC: INF 02:56
PROVIDERS: PCP Family Medicine; Visit Provider Psychiatry & Neurology Neurology
DX: G62.89 Other specified polyneuropathies (principal); D86.89 Sarcoidosis of other sites
CPT/HCPCS: 36415; 96365; 96366; 82565; J1459

== ENCOUNTER 2022-01-19 01:51 | Outpatient (CLI) | payer MEDICARE, SELFPAY ==
--- NOTE | 2022-01-19 16:15 | DI.MAMMO_ITS ---
Exam(s) MAMMO SCREENING EXAM: MAMMO SCREENING CLINICAL HISTORY: SCREENING FOR BREAST CANCER Z12.39 TECHNIQUE: Mammograms were interpreted according to the usual protocol including computer analysis w [employer] CAD system, tomosynthesis and C-view imaging. COMPARISON: FINDINGS: The breasts are of moderate density with fairly symmetrical distribution of fibroglandular tissue. N o dominant mass or clumped microcalcification is identified in either breast. Current examination is compared with previous examinations including September 2019 and there is question of increased promin ence of an area of asymmetric density projected posteriorly in the left breast in the lateral portion of the breast on the CC view. Additional mammographic views of this area are requested to include C C spot compression view and exaggerated view to the lateral aspect of the breast. Breast ultrasound recommended as well. No other significant change seen. IMPRESSION: Additional mammographic views left breast and left breast ultrasound requested as described above. BI-RADS Category 0 - Assessment Incomplete: Need additional imaging evaluation Breast Density - Category B - Scattered areas of fibroglandular density
== END 2022-01-19 02:11 ==
PROVIDERS: PCP Family Medicine; Visit Provider Family Medicine
DX: Z12.31 Encounter for screening mammogram for malignant neoplasm of breast (principal); R92.8 Other abnormal and inconclusive findings on diagnostic imaging of breast
CPT/HCPCS: 77063; 77067

== ENCOUNTER → 2022-01-27 00:40 | Outpatient (CLI) | payer MEDICARE, SELFPAY ==
--- NOTE | 2022-01-27 | DI.MAMMO_ITS ---
Exam(s) MAMMO SCREEN CALL BACK UNI US BREAST LT LIMITED EXAM: MAMMO SCREEN CALL BACK UNI -LEFT AND COMPLETE LEFT BREAST ULTRASOUND CLINICAL HISTORY: ASYMMETRIC DENSITY LEFT BREAST. TECHNIQUE: Unilateral spot mammographic images obtained with 3D tomosynthesisand utilizing computer aided detection (CAD). . Complete LEFT breast Ultrasound was also performed, including all 4 quadrants, the retroareolar regio n, and the ipsilateral axilla. COMPARISON: Prior mammograms were reviewed. This additional imaging was performed due to findings described on the recent screening mammogram of 01/19/2022. FINDINGS: Additional mammographic views performed todayrender this area less concerning. Ultrasound performed today reveals no evidence of solid or significant cystic lesions in all 4 quadra nts nor in the retroareolar region. Also no evidence of axillary adenopathy.. IMPRESSION: No radiographic evidence of malignancy in the left breast.. Negative complete left breast ultrasound Appropriate follow-up is repeat left breast mammogram in 6 months. The patient was informed of these findings and recommendations prior to leaving the department today. BI-RADS Category 3 - 6 month - Probably Benign Finding: Recommend follow-up mammography in 6 months Breast Density - Category B - Scattered areas of fibroglandular density Breast density Category C or D implies that the patient has dense breast tissue. Dense breast tissue can make it harder to find cancer on a mammogram. Dense breast tissue is also associated with an incr eased risk of breast cancer. This information about the result of the mammogram report was provided to the patient to raise their awareness. Use this report when you speak with the patient about their risks for breast cancer, which includes their family history. At that time, you may recommend additional screening tests (Ultrasoun d or MRI) as these tests may add significant information. A negative radiographic report should not delay biopsy if a dominant or clinically suspicious mass is present. Up to ten percent of cancers are not identified on mammography. A negative report may reinforce clinical impression. Adenosis and dense breasts may obscure an underlying neoplasm. False positive reports average 6 to 10%. Patient will receive a letter notifying them of these results.
== END ==
PROVIDERS: PCP Family Medicine; Visit Provider Family Medicine
DX: Z12.31 Encounter for screening mammogram for malignant neoplasm of breast (principal); R92.8 Other abnormal and inconclusive findings on diagnostic imaging of breast; N64.59 Other signs and symptoms in breast
CPT/HCPCS: 76642; 77063; 77067

== ENCOUNTER 2022-02-03 01:45 | Outpatient (RCR) | payer MEDICARE, SELFPAY ==
[2021-12-16 00:01] VITALS: BP 138/76; PULSE 58; RESP 16; TEMP 36.7
[2022-01-30] MEDS: IMMUNE GLOBULIN 40 GM/400 ML BTL IVPB (07:54)
[2022-01-30 07:55] VITALS: BP 110/70; PULSE 55; RESP 16; TEMP 36.4; O2SAT 98
[2022-01-30] MEDS: Normal Saline Flush 10 ML SYR IVP (07:55)
[2022-01-30 08:10] VITALS: BP 119/64; PULSE 50; RESP 16; TEMP 36.4; O2SAT 98
[2022-01-30 08:40] VITALS: BP 123/65; PULSE 55; RESP 16; TEMP 36.5; O2SAT 98
[2022-01-30 09:10] VITALS: BP 125/77; PULSE 57; RESP 16; TEMP 36.6; O2SAT 97
[2022-01-30 09:40] VITALS: BP 133/76; PULSE 54; RESP 16; TEMP 36.4; O2SAT 96
[2022-01-31 07:50] VITALS: BP 137/69; PULSE 54; RESP 18; TEMP 36.5; O2SAT 99
[2022-01-31] MEDS: IMMUNE GLOBULIN 40 GM/400 ML BTL IVPB (07:54)
[2022-01-31] MEDS: Normal Saline Flush 10 ML SYR IVP (07:55)
[2022-01-31 08:08] LABS: CREATININE 1.6 mg/dL (0.55-1.02); Estimated GFR 32.15 (mL/min/1.73m2)
[2022-01-31 08:15] VITALS: BP 124/64; PULSE 54; RESP 18; TEMP 36.5; O2SAT 98
[2022-01-31 08:30] VITALS: BP 134/74; PULSE 55; RESP 16; TEMP 36.4; O2SAT 98
[2022-01-31 09:00] VITALS: BP 137/78; PULSE 52; RESP 16; TEMP 36.6; O2SAT 98
[2022-01-31 09:30] VITALS: BP 131/65; PULSE 51; RESP 17; TEMP 36.6; O2SAT 98
[2022-02-01 07:37] VITALS: BP 133/66; PULSE 59; RESP 18; TEMP 36.1; O2SAT 99
[2022-02-01] MEDS: Normal Saline Flush 10 ML SYR IVP (07:37)
[2022-02-01] MEDS: IMMUNE GLOBULIN 40 GM/400 ML BTL IVPB (07:45)
[2022-02-01 08:05] VITALS: BP 114/62; PULSE 51; RESP 18; TEMP 36.1; O2SAT 99
[2022-02-01 08:20] VITALS: BP 142/78; PULSE 51; RESP 18; TEMP 36.3; O2SAT 99
[2022-02-01 08:50] VITALS: BP 110/66; PULSE 51; RESP 18; TEMP 36.2; O2SAT 98
[2022-02-01 10:00] VITALS: BP 136/73; PULSE 50; RESP 17; TEMP 36.3; O2SAT 98
[2022-02-02 07:35] VITALS: BP 131/76; PULSE 52; RESP 18; TEMP 36.1; O2SAT 100
[2022-02-02] MEDS: Normal Saline Flush 10 ML SYR IVP (07:42)
[2022-02-02] MEDS: IMMUNE GLOBULIN 40 GM/400 ML BTL IVPB (07:42)
[2022-02-02 08:00] VITALS: BP 109/67; PULSE 55; RESP 17; TEMP 36.3; O2SAT 99
[2022-02-02 08:15] VITALS: BP 125/63; PULSE 54; RESP 18; TEMP 36.3; O2SAT 100
[2022-02-02 08:45] VITALS: BP 136/77; PULSE 51; RESP 18; TEMP 36.1; O2SAT 97
[2022-02-02 09:20] VITALS: BP 149/76; PULSE 49; RESP 18; TEMP 35.8; O2SAT 99
[2022-02-02 09:50] VITALS: BP 145/83; PULSE 53; RESP 18; O2SAT 98
[2022-02-03] MEDS: IMMUNE GLOBULIN 40 GM/400 ML BTL IVPB (07:47)
[2022-02-03] MEDS: Normal Saline Flush 10 ML SYR IVP (07:47)
[2022-02-03 08:13] LABS: CREATININE 1.4 mg/dL (0.55-1.02); Estimated GFR 37.51 (mL/min/1.73m2)
[2022-02-03 08:16] VITALS: BP 120/90; PULSE 53; RESP 16; TEMP 36.5; O2SAT 100
[2022-02-03 08:28] VITALS: BP 120/70; PULSE 57; RESP 16; TEMP 36.2; O2SAT 97
[2022-02-03 09:01] VITALS: BP 128/78; PULSE 50; RESP 16; TEMP 36.3; O2SAT 98
[2022-02-03 09:31] VITALS: BP 120/65; PULSE 52; RESP 16; TEMP 36.6; O2SAT 100
== END 2022-02-14 23:59 | disposition home or self-care (01) ==
LOC: INF 01:45
PROVIDERS: PCP Family Medicine; Visit Provider Psychiatry & Neurology Neurology
DX: G62.89 Other specified polyneuropathies (principal); D86.89 Sarcoidosis of other sites
CPT/HCPCS: 36415; 96365; 96366; 82565; J1459

== ENCOUNTER → 2022-02-21 08:12 | Outpatient (BNVA) | payer MEDICARE, SELFPAY | PROVIDERS: PCP Family Medicine; Referring Provider Family Medicine; Visit Provider Psychiatry & Neurology Neurology | DX: G62.9 Polyneuropathy, unspecified (principal); G56.03 Carpal tunnel syndrome, bilateral upper limbs; G56.21 Lesion of ulnar nerve, right upper limb | CPT/HCPCS: 99213 ==

== ENCOUNTER 2022-04-28 00:47 | Outpatient (RCR) | payer MEDICARE, SELFPAY ==
[2022-04-24 07:50] VITALS: BP 122/70; PULSE 54; RESP 18; TEMP 36.2; O2SAT 96
[2022-04-24] MEDS: Normal Saline Flush 10 ML SYR IVP (07:54)
[2022-04-24] MEDS: IMMUNE GLOBULIN 40 GM/400 ML BTL IVPB (07:54)
[2022-04-24 08:13] VITALS: BP 110/56; PULSE 56; RESP 18; TEMP 36.3; O2SAT 97
[2022-04-24 08:30] VITALS: BP 122/61; PULSE 56; RESP 18; TEMP 36.2; O2SAT 98
[2022-04-24 09:00] VITALS: BP 122/61; PULSE 54; RESP 17; TEMP 36.1; O2SAT 98
[2022-04-24 09:30] VITALS: BP 121/68; PULSE 51; RESP 17; TEMP 36.2; O2SAT 98
[2022-04-25 07:35] VITALS: BP 135/76; PULSE 54; RESP 16; TEMP 36.5; O2SAT 98
[2022-04-25] MEDS: IMMUNE GLOBULIN 40 GM/400 ML BTL IVPB (07:46)
[2022-04-25] MEDS: Normal Saline Flush 10 ML SYR IVP (07:46)
[2022-04-25 08:00] VITALS: BP 125/66; PULSE 53; RESP 16; TEMP 36.6; O2SAT 97
[2022-04-25 08:04] LABS: CREATININE 1.5 mg/dL (0.55-1.02); Estimated GFR 34.53 (mL/min/1.73m2)
[2022-04-25 08:15] VITALS: BP 104/66; PULSE 52; RESP 16; TEMP 36.5; O2SAT 97
[2022-04-25 08:45] VITALS: BP 128/59; PULSE 50; RESP 16; TEMP 36.6; O2SAT 98
[2022-04-25 09:15] VITALS: BP 129/71; PULSE 46; RESP 17; TEMP 36.3; O2SAT 99
[2022-04-25 09:45] VITALS: BP 128/71; PULSE 50; RESP 16; TEMP 36.3; O2SAT 99
[2022-04-26 07:35] VITALS: BP 132/74; PULSE 50; RESP 16; TEMP 36.1; O2SAT 99
[2022-04-26] MEDS: IMMUNE GLOBULIN 40 GM/400 ML BTL IVPB (07:37)
[2022-04-26] MEDS: Normal Saline Flush 10 ML SYR IVP (07:37)
[2022-04-26 07:50] VITALS: BP 135/76; PULSE 50; RESP 17; TEMP 36.1; O2SAT 99
[2022-04-26 08:05] VITALS: BP 139/72; PULSE 44; RESP 17; TEMP 36.1; O2SAT 98
[2022-04-26 08:35] VITALS: BP 145/81; PULSE 48; RESP 16; TEMP 36.1; O2SAT 98
[2022-04-26 09:05] VITALS: BP 142/69; PULSE 54; RESP 16; TEMP 36.4; O2SAT 98
[2022-04-26 09:31] VITALS: BP 141/76; PULSE 62; RESP 17; TEMP 36.3; O2SAT 97
[2022-04-27 07:30] VITALS: BP 138/77; PULSE 50; RESP 16; TEMP 35.7; O2SAT 99
[2022-04-27] MEDS: IMMUNE GLOBULIN 40 GM/400 ML BTL IVPB (07:35)
[2022-04-27] MEDS: Normal Saline Flush 10 ML SYR IVP (07:35)
[2022-04-27 07:50] VITALS: BP 132/70; PULSE 51; RESP 16; TEMP 36.1; O2SAT 99
[2022-04-27 08:05] VITALS: BP 132/75; PULSE 52; RESP 16; TEMP 36.1; O2SAT 97
[2022-04-27 08:33] VITALS: BP 128/63; PULSE 51; RESP 16; TEMP 36.1; O2SAT 99
[2022-04-27 09:01] VITALS: BP 124/65; PULSE 51; RESP 16; TEMP 36.1; O2SAT 99
[2022-04-27 09:30] VITALS: BP 161/80; PULSE 50; RESP 16; TEMP 36.1; O2SAT 99
[2022-04-28 07:34] VITALS: BP 130/80; PULSE 48; RESP 17; TEMP 35.9; O2SAT 98
[2022-04-28 07:51] LABS: CREATININE 1.3 mg/dL (0.55-1.02); Estimated GFR 40.73 (mL/min/1.73m2)
[2022-04-28] MEDS: Normal Saline Flush 10 ML SYR IVP (07:54)
[2022-04-28] MEDS: IMMUNE GLOBULIN 40 GM/400 ML BTL IVPB (07:54)
[2022-04-28 08:10] VITALS: BP 131/80; PULSE 50; RESP 18; TEMP 36.2; O2SAT 97
[2022-04-28 08:25] VITALS: BP 151/73; PULSE 52; RESP 18; TEMP 36.3; O2SAT 97
[2022-04-28 08:55] VITALS: BP 146/80; PULSE 50; RESP 18; TEMP 36.3; O2SAT 98
[2022-04-28 09:25] VITALS: BP 145/75; PULSE 58; RESP 18; TEMP 36.3; O2SAT 99
[2022-04-28 09:54] VITALS: BP 152/78; PULSE 50; RESP 18; TEMP 36.3; O2SAT 97
== END 2022-05-17 23:59 | disposition home or self-care (01) ==
LOC: INF 00:47
PROVIDERS: PCP Family Medicine; Visit Provider Psychiatry & Neurology Neurology
DX: G62.89 Other specified polyneuropathies (principal); D86.89 Sarcoidosis of other sites
CPT/HCPCS: 36415; 96365; 96366; 82565; J1459

== ENCOUNTER 2022-06-05 17:38 | Outpatient (REF) | payer MEDICARE, SELFPAY ==
[2022-06-05 17:15] LABS: Hemoglobin A1C 6.2 % (<5.7)
[2022-06-05 17:20] LABS: Iron 106 ug/dL (50-170); Total Iron Binding Capacity 297 ug/dL (250-450); Transferrin Sat 36 % (15-50)
[2022-06-05 17:35] LABS: Vitamin D 25 Total 28.9 ng/mL (30-100)
[2022-06-05 18:59] LABS: Anion Gap 9.9 mmol/L (3-11); BUN 25 mg/dL (7-18); CO2 26.1 mmol/L (21.0-32.0); CREATININE 1.5 mg/dL (0.55-1.02); Calcium 9.2 mg/dL (8.5-10.1); Chloride 106 mmol/L (98-107); Estimated GFR 37.72 (mL/min/1.73m2); Ferritin 83 ng/mL (8-252); Glucose 139 mg/dL (74-106); PHOSPHORUS 3.8 mg/dL (2.6-4.7); Potassium 4.4 mmol/L (3.5-5.1); Sodium 142 mmol/L (136-145)
[2022-06-06 19:18] LABS: Parathyroid Hormone,Intact 36 pg/mL (19-88)
[2022-06-07 10:33] LABS: Hepatitis C Ab w Rflx HCV PCR Negative (Negative)
== END 2022-06-05 17:39 | disposition home or self-care (01) ==
LOC: NCHCN 17:38
PROVIDERS: PCP Family Medicine; Visit Provider Family Medicine
DX: N18.30 Chronic kidney disease, stage 3 unspecified (principal); R73.03 Prediabetes
CPT/HCPCS: 80048; 82306; 86803; 82728; 83036; 83540; 83550; 83970; 84100

== ENCOUNTER 2022-06-06 08:40 | Outpatient (CLI) | payer MEDICARE, SELFPAY | END 2022-06-06 08:41 | disposition home or self-care (01) | LOC: DI.CARD 08:40 | PROVIDERS: PCP Family Medicine; Visit Provider Internal Medicine Cardiovascular Disease | CPT/HCPCS: 93010 ==

== ENCOUNTER → 2022-06-06 09:49 | Outpatient (BNVA) | payer MEDICARE, SELFPAY | PROVIDERS: PCP Family Medicine; Visit Provider Internal Medicine Cardiovascular Disease | DX: I48.0 Paroxysmal atrial fibrillation (principal); Z79.01 Long term (current) use of anticoagulants; D86.85 Sarcoid myocarditis; D86.9 Sarcoidosis, unspecified; I10 Essential (primary) hypertension | CPT/HCPCS: 99214 ==

== ENCOUNTER 2022-07-17 02:40 | Outpatient (RCR) | payer MEDICARE, SELFPAY ==
[2022-05-18 00:01] VITALS: BP 152/78; PULSE 50; RESP 18; TEMP 36.3
[2022-07-17 07:45] VITALS: BP 120/71; PULSE 60; RESP 16; TEMP 36.6; O2SAT 98
[2022-07-17] MEDS: IMMUNE GLOBULIN 40 GM/400 ML BTL IVPB (07:57)
[2022-07-17] MEDS: Normal Saline Flush 10 ML SYR IVP (07:58)
[2022-07-17 08:10] VITALS: BP 109/68; PULSE 58; RESP 17; TEMP 36.4; O2SAT 98
[2022-07-17 08:25] VITALS: BP 127/71; PULSE 58; RESP 17; TEMP 36; O2SAT 97
[2022-07-17 08:55] VITALS: BP 127/72; PULSE 60; RESP 17; TEMP 36.5; O2SAT 98
[2022-07-17 09:25] VITALS: BP 132/72; PULSE 57; RESP 16; TEMP 36.7; O2SAT 100
[2022-07-17 09:50] VITALS: BP 138/83; PULSE 55; RESP 17; TEMP 36.6; O2SAT 98
== END 2022-07-17 23:59 | disposition home or self-care (01) ==
LOC: INF 02:40
PROVIDERS: PCP Family Medicine; Visit Provider Psychiatry & Neurology Neurology
DX: G62.89 Other specified polyneuropathies (principal); D86.89 Sarcoidosis of other sites
CPT/HCPCS: 96365; 96366; J1459

== ENCOUNTER 2022-07-21 01:08 | Outpatient (RCR) | payer MEDICARE, SELFPAY ==
[2022-07-18] VITALS (7 sets, daily range): BP systolic 122–148; BP diastolic 60–83; PULSE 46–55; RESP 16–18; TEMP 36.3–36.6; O2SAT 95–99
[2022-07-18] MEDS: Normal Saline Flush 10 ML SYR IVP (07:46)
[2022-07-18] MEDS: IMMUNE GLOBULIN 40 GM/400 ML BTL IVPB (07:46)
[2022-07-18 08:14] LABS: CREATININE 1.6 mg/dL (0.55-1.02); Estimated GFR 34.91 (mL/min/1.73m2)
[2022-07-19 08:10] VITALS: BP 144/81; PULSE 57; RESP 18; TEMP 36.6; O2SAT 98
[2022-07-19] MEDS: IMMUNE GLOBULIN 40 GM/400 ML BTL IVPB (08:12)
[2022-07-19] MEDS: Normal Saline Flush 10 ML SYR IVP (08:12)
[2022-07-19 08:30] VITALS: BP 120/72; PULSE 53; RESP 20; TEMP 36.6; O2SAT 97
[2022-07-19 08:45] VITALS: BP 133/79; PULSE 52; RESP 19; TEMP 36.5; O2SAT 98
[2022-07-19 09:15] VITALS: BP 138/80; PULSE 54; RESP 19; TEMP 36.4; O2SAT 98
[2022-07-19 09:45] VITALS: BP 143/76; PULSE 55; RESP 19; TEMP 36.5; O2SAT 97
[2022-07-20 07:45] VITALS: BP 159/75; PULSE 60; RESP 16; TEMP 35.6; O2SAT 100
[2022-07-20] MEDS: Normal Saline Flush 10 ML SYR IVP (07:52)
[2022-07-20] MEDS: IMMUNE GLOBULIN 40 GM/400 ML BTL IVPB (07:52)
[2022-07-20 08:08] VITALS: BP 132/76; PULSE 53; RESP 16; TEMP 36.3; O2SAT 97
[2022-07-20 08:24] VITALS: BP 120/77; PULSE 53; RESP 17; TEMP 36.5; O2SAT 98
[2022-07-20 08:55] VITALS: BP 145/76; PULSE 46; RESP 16; TEMP 36.3; O2SAT 98
[2022-07-20 09:40] VITALS: BP 142/94; PULSE 46; RESP 17; TEMP 36.4; O2SAT 97
[2022-07-21 07:45] VITALS: BP 109/72; PULSE 57; RESP 18; TEMP 36.3; O2SAT 97
[2022-07-21] MEDS: Normal Saline Flush 10 ML SYR IVP (07:46)
[2022-07-21] MEDS: IMMUNE GLOBULIN 40 GM/400 ML BTL IVPB (07:46)
[2022-07-21 08:05] VITALS: BP 130/70; PULSE 60; RESP 17; TEMP 36.4; O2SAT 96
[2022-07-21 08:13] LABS: CREATININE 1.6 mg/dL (0.55-1.02); Estimated GFR 34.91 (mL/min/1.73m2)
[2022-07-21 08:20] VITALS: BP 143/75; PULSE 51; RESP 17; TEMP 36.6; O2SAT 98
[2022-07-21 09:05] VITALS: BP 159/79; PULSE 54; RESP 17; TEMP 36.3; O2SAT 99
[2022-07-21 09:37] VITALS: BP 162/89; PULSE 45; RESP 18; TEMP 36.2; O2SAT 98
== END 2022-08-16 23:59 | disposition home or self-care (01) ==
LOC: INF 01:08
PROVIDERS: PCP Family Medicine; Visit Provider Psychiatry & Neurology Neurology
DX: G62.89 Other specified polyneuropathies (principal); D86.89 Sarcoidosis of other sites
CPT/HCPCS: 36415; 96365; 96366; 82565; J1459

== ENCOUNTER → 2022-08-01 02:50 | Outpatient (CLI) | payer MEDICARE, SELFPAY ==
--- NOTE | 2022-08-01 09:39 | DI.MAMMO_ITS ---
Exam(s) MG MAMMO DIAGNOSTIC UNI EXAM: MAMMO DIAGNOSTIC UNI -LEFT CLINICAL HISTORY: 6-MO F/U ABNL LT MAMMO, R92.8. TECHNIQUE: Unilateral CC AND MLO AND SPOT mammographic images were obtained with 3D tomosynthesis t echnique and utilizing computer aided detection (CAD). COMPARISON: Prior mammograms were reviewed, the most recent being January 2022. Ultrasound performed the time was also reviewed. FINDINGS: Previously described asymmetric density posteriorly is again non convincing for significant nodule on the additional views performed today. Benign microcalcifications are noted elsewhere in left breast and remain unchanged from prior studies . No new masses nor malignant-appearing microcalcification groups in the left breast and there is no ne w architectural distortion or skin thickening-traction. IMPRESSION: No radiographic evidence of malignancy in left breast Appropriate follow-up is to keep this patient on her yearly mammogram schedule applying the next [facility] mammogram would be in January 2023. The patient was informed of the findings and follow-up recommendations prior to leaving the [facility] today. BI-RADS Category 2 - Benign Findings Breast Density - Category B - Scattered areas of fibroglandular density Breast density Category C or D implies that the patient has dense breast tissue. Dense breast tissue can make it harder to find cancer on a mammogram. Dense breast tissue is also associated with an incr eased risk of breast cancer. This information about the result of the mammogram report was provided to the patient to raise their awareness. Use this report when you speak with the patient about their risks for breast cancer, which includes their family history. At that time, you may recommend additional screening tests (Ultrasoun d or MRI) as these tests may add significant information. A negative radiographic report should not delay biopsy if a dominant or clinically suspicious mass is present. Up to ten percent of cancers are not identified on mammography. A negative report may reinforce clinical impression. Adenosis and dense breasts may obscure an underlying neoplasm. False positive reports average 6 to 10%. Patient will receive a letter notifying them of these results.
== END ==
PROVIDERS: PCP Family Medicine; Visit Provider Family Medicine
DX: R92.8 Other abnormal and inconclusive findings on diagnostic imaging of breast (principal)
CPT/HCPCS: 77061; 77065; G0279

== ENCOUNTER → 2022-08-21 10:14 | Outpatient (BNVA) | payer MEDICARE, SELFPAY | PROVIDERS: PCP Family Medicine; Referring Provider Family Medicine; Visit Provider Psychiatry & Neurology Neurology | DX: G62.9 Polyneuropathy, unspecified (principal); G56.03 Carpal tunnel syndrome, bilateral upper limbs; G56.21 Lesion of ulnar nerve, right upper limb; E09.9 Drug or chemical induced diabetes mellitus without complications | CPT/HCPCS: 99213 ==

== ENCOUNTER 2022-10-27 01:17 | Outpatient (RCR) | payer MEDICARE, SELFPAY ==
[2022-10-23 07:40] VITALS: BP 122/73; PULSE 64; RESP 20; TEMP 36.8; O2SAT 99
[2022-10-23] MEDS: Normal Saline Flush 10 ML SYR IVP (07:49)
[2022-10-23] MEDS: IMMUNE GLOBULIN 40 GM/400 ML BTL IVPB (07:49)
[2022-10-23 08:10] VITALS: BP 123/74; PULSE 65; RESP 20; TEMP 37; O2SAT 98
[2022-10-23 08:25] VITALS: BP 129/74; PULSE 60; RESP 20; TEMP 36.9; O2SAT 99
[2022-10-23 08:55] VITALS: BP 126/60; PULSE 59; RESP 18; TEMP 37.3; O2SAT 97
[2022-10-23 09:25] VITALS: BP 123/77; PULSE 61; RESP 18; TEMP 37.5; O2SAT 98
[2022-10-24 07:50] VITALS: BP 108/66; PULSE 58; RESP 20; TEMP 36.4; O2SAT 97
[2022-10-24] MEDS: IMMUNE GLOBULIN 40 GM/400 ML BTL IVPB (07:50)
[2022-10-24] MEDS: Normal Saline Flush 10 ML SYR IVP (07:54)
[2022-10-24 08:05] VITALS: BP 121/63; PULSE 63; RESP 18; TEMP 36.8; O2SAT 97
[2022-10-24 08:20] VITALS: BP 124/70; PULSE 58; RESP 20; TEMP 36.8; O2SAT 97
[2022-10-24 08:24] LABS: CREATININE 1.4 mg/dL (0.55-1.02); Estimated GFR 40.98 (mL/min/1.73m2)
[2022-10-24 08:50] VITALS: BP 121/75; PULSE 57; RESP 18; TEMP 36.8; O2SAT 97
[2022-10-24 09:22] VITALS: BP 129/77; PULSE 54; RESP 18; TEMP 36.7; O2SAT 97
[2022-10-25 07:40] VITALS: BP 145/83; PULSE 62; RESP 20; TEMP 36.3; O2SAT 97
[2022-10-25] MEDS: IMMUNE GLOBULIN 40 GM/400 ML BTL IVPB (07:40)
[2022-10-25] MEDS: Normal Saline Flush 10 ML SYR IVP (07:42)
[2022-10-25 07:55] VITALS: BP 123/61; PULSE 64; RESP 20; TEMP 36.4; O2SAT 96
[2022-10-25 08:10] VITALS: BP 125/63; PULSE 60; RESP 18; TEMP 36.6; O2SAT 96
[2022-10-25 08:40] VITALS: BP 133/69; PULSE 60; RESP 20; TEMP 36.8; O2SAT 97
[2022-10-25 09:10] VITALS: BP 130/72; PULSE 51; RESP 18; TEMP 36.8; O2SAT 99
[2022-10-25 09:30] VITALS: BP 123/76; PULSE 54; RESP 20; TEMP 36.8; O2SAT 97
[2022-10-26 07:45] VITALS: BP 135/77; PULSE 61; RESP 20; TEMP 36.1; O2SAT 99
[2022-10-26] MEDS: IMMUNE GLOBULIN 40 GM/400 ML BTL IVPB (07:45)
[2022-10-26] MEDS: Normal Saline Flush 10 ML SYR IVP (07:45)
[2022-10-26 08:05] VITALS: BP 134/73; PULSE 55; RESP 20; TEMP 36.6; O2SAT 98
[2022-10-26 08:20] VITALS: BP 130/71; PULSE 60; RESP 20; TEMP 36.6; O2SAT 98
[2022-10-26 08:50] VITALS: BP 142/83; PULSE 56; RESP 20; TEMP 36.8; O2SAT 98
[2022-10-26 09:20] VITALS: BP 131/84; PULSE 52; RESP 19; TEMP 36.7; O2SAT 99
[2022-10-27] MEDS: Normal Saline Flush 10 ML SYR IVP (07:46)
[2022-10-27] MEDS: IMMUNE GLOBULIN 40 GM/400 ML BTL IVPB (07:46)
[2022-10-27 07:53] VITALS: BP 131/68; PULSE 55; RESP 18; TEMP 36.3; O2SAT 98
[2022-10-27 08:04] LABS: CREATININE 1.5 mg/dL (0.55-1.02); Estimated GFR 37.72 (mL/min/1.73m2)
[2022-10-27 08:05] VITALS: BP 127/86; PULSE 54; RESP 18; TEMP 36.5; O2SAT 96
[2022-10-27 08:20] VITALS: BP 122/75; PULSE 48; RESP 18; TEMP 36.6; O2SAT 97
[2022-10-27 08:50] VITALS: BP 131/78; PULSE 53; RESP 18; TEMP 36.7; O2SAT 99
[2022-10-27 09:20] VITALS: BP 130/84; PULSE 52; RESP 18; TEMP 36.7; O2SAT 100
== END 2022-11-14 23:59 | disposition home or self-care (01) ==
LOC: INF 01:17
PROVIDERS: PCP Family Medicine; Visit Provider Psychiatry & Neurology Neurology
DX: M06.4 Inflammatory polyarthropathy (principal)
CPT/HCPCS: 36415; 96365; 96366; 82565; J1459

== ENCOUNTER 2022-12-25 14:02 | Outpatient (REF) | payer MEDICARE, SELFPAY ==
[2022-12-25 15:01] LABS: Anion Gap 7.2 mmol/L (3-11); BUN 25 mg/dL (7-18); CO2 27.8 mmol/L (21.0-32.0); CREATININE 1.3 mg/dL (0.55-1.02); Calcium 8.6 mg/dL (8.5-10.1); Chloride 107 mmol/L (98-107); Estimated GFR 44.79 (mL/min/1.73m2); Glucose 165 mg/dL (74-106); Sodium 142 mmol/L (136-145)
== END 2022-12-25 14:03 | disposition home or self-care (01) ==
LOC: NCHCN 14:02
PROVIDERS: PCP Family Medicine; Visit Provider Family Medicine
DX: I10 Essential (primary) hypertension (principal); N18.30 Chronic kidney disease, stage 3 unspecified
CPT/HCPCS: 80048

== ENCOUNTER 2023-01-08 01:37 | Outpatient (CLI) | payer MEDICARE, SELFPAY ==
[2023-01-08] MEDS: Albuterol HFA 18 GM 200 PUFF INH IH (11:14)
[2023-01-08] MEDS: Inhaler, Assist Device 1 EACH MC (11:14)
--- NOTE | 2023-01-09 09:09 | W.PFT ---
Date of service: 01/08/23 Time of Service: 09:58 Pulmonary Function Test Result Indications: Sarcoidosis Interpretation Spirometry: There is no airflow limitation. There is no bronchodilator response. Lung Volumes: Normal lung volumes Diffusion Capacity: Normal diffusion Airway Pressure: Normal airways resistance Impression Normal pulmonary function testing Clinical Correlation therefore is recommended.
== END 2023-01-08 01:38 | disposition home or self-care (01) ==
LOC: RT 01:37
PROVIDERS: PCP Family Medicine; Visit Provider Family Medicine
DX: D86.9 Sarcoidosis, unspecified (principal)
CPT/HCPCS: 94060; 94726; 94729

== ENCOUNTER 2023-01-19 01:00 | Outpatient (RCR) | payer MEDICARE, SELFPAY ==
[2022-11-15 00:08] VITALS: BP 130/84; PULSE 52; RESP 18; TEMP 36.7
[2023-01-15 07:50] VITALS: BP 114/69; PULSE 98; RESP 18; TEMP 36.4; O2SAT 98
[2023-01-15] MEDS: IMMUNE GLOBULIN 40 GM/400 ML BTL IVPB (07:55)
[2023-01-15 08:15] VITALS: BP 106/60; PULSE 54; RESP 17; TEMP 36.6; O2SAT 96
[2023-01-15] MEDS: Normal Saline Flush 10 ML SYR IVP (08:16)
[2023-01-15 08:30] VITALS: BP 102/62; PULSE 52; RESP 17; TEMP 36.6; O2SAT 96
[2023-01-15 09:00] VITALS: BP 126/65; PULSE 54; RESP 17; TEMP 36.7; O2SAT 98
[2023-01-15 09:30] VITALS: BP 115/72; PULSE 51; RESP 18; TEMP 36.4; O2SAT 98
[2023-01-16 07:45] VITALS: BP 148/69; PULSE 55; RESP 17; TEMP 36.2; O2SAT 98
[2023-01-16] MEDS: IMMUNE GLOBULIN 40 GM/400 ML BTL IVPB (07:45)
[2023-01-16] MEDS: Normal Saline Flush 10 ML SYR IVP (07:49)
[2023-01-16 08:00] VITALS: BP 127/79; PULSE 51; RESP 17; TEMP 36.3; O2SAT 96
[2023-01-16 08:05] LABS: CREATININE 1.5 mg/dL (0.55-1.02); Estimated GFR 37.72 (mL/min/1.73m2)
[2023-01-16 08:15] VITALS: BP 128/75; PULSE 52; RESP 17; TEMP 36.5; O2SAT 98
[2023-01-16 08:45] VITALS: BP 138/83; PULSE 58; RESP 17; TEMP 36.1; O2SAT 98
[2023-01-16 09:15] VITALS: BP 126/71; PULSE 55; RESP 17; TEMP 36.6; O2SAT 97
[2023-01-17 07:40] VITALS: BP 127/63; PULSE 57; RESP 17; TEMP 35.9; O2SAT 99
[2023-01-17] MEDS: IMMUNE GLOBULIN 40 GM/400 ML BTL IVPB (07:40)
[2023-01-17] MEDS: Normal Saline Flush 10 ML SYR IVP (07:40)
[2023-01-17 07:55] VITALS: BP 118/63; PULSE 52; RESP 17; TEMP 36.4; O2SAT 97
[2023-01-17 08:10] VITALS: BP 114/69; PULSE 54; RESP 17; TEMP 36.6; O2SAT 97
[2023-01-17 08:45] VITALS: BP 133/76; PULSE 46; RESP 17; TEMP 36.5; O2SAT 96
[2023-01-17 09:10] VITALS: BP 122/69; PULSE 50; RESP 17; TEMP 36.4; O2SAT 99
[2023-01-18 07:40] VITALS: BP 138/69; PULSE 71; RESP 16; TEMP 35.9; O2SAT 100
[2023-01-18] MEDS: IMMUNE GLOBULIN 40 GM/400 ML BTL IVPB (07:40)
[2023-01-18] MEDS: Normal Saline Flush 10 ML SYR IVP (07:45)
[2023-01-18 07:55] VITALS: BP 124/72; PULSE 53; RESP 17; TEMP 36.2; O2SAT 97
[2023-01-18 08:15] VITALS: BP 130/72; PULSE 55; RESP 17; TEMP 36.4; O2SAT 96
[2023-01-18 08:45] VITALS: BP 126/60; PULSE 51; RESP 17; TEMP 36.7; O2SAT 99
[2023-01-18 09:15] VITALS: BP 130/72; PULSE 59; RESP 17; TEMP 36.6; O2SAT 98
[2023-01-19 07:40] VITALS: BP 126/64; PULSE 52; RESP 17; TEMP 36; O2SAT 97
[2023-01-19 07:56] LABS: CREATININE 1.5 mg/dL (0.55-1.02); Estimated GFR 37.72 (mL/min/1.73m2)
[2023-01-19] MEDS: IMMUNE GLOBULIN 40 GM/400 ML BTL IVPB (08:00)
[2023-01-19] MEDS: Normal Saline Flush 10 ML SYR IVP (08:04)
[2023-01-19 08:15] VITALS: BP 128/54; PULSE 53; RESP 17; TEMP 36.5; O2SAT 95
[2023-01-19 08:30] VITALS: BP 110/62; PULSE 48; RESP 17; TEMP 36.5; O2SAT 97
[2023-01-19 09:00] VITALS: BP 112/64; PULSE 50; RESP 17; TEMP 36.6; O2SAT 97
[2023-01-19 09:35] VITALS: BP 112/62; PULSE 52; RESP 17; TEMP 36.5; O2SAT 97
== END 2023-02-14 23:59 | disposition home or self-care (01) ==
LOC: INF 01:00
PROVIDERS: PCP Family Medicine; Visit Provider Psychiatry & Neurology Neurology
DX: D86.89 Sarcoidosis of other sites (principal); G62.89 Other specified polyneuropathies
CPT/HCPCS: 36415; 96365; 96366; 82565; J1459

== ENCOUNTER 2023-01-24 00:51 | Outpatient (CLI) | payer MEDICARE, SELFPAY ==
--- NOTE | 2023-01-24 15:48 | DI.US_ITS ---
APPROVED REPORT EXAM: Comprehensive 2D, Doppler, and color-flow Echocardiogram Patient Location: Out-Patient Admitted Attorneys: Rajani Salas RDCS (AE) Indications: sarcoidosis, cardiomyopathy, GUZMAN Other Information Study Quality: Adequate Conclusion Normal left ventricular wall thickness. The ventricle is moderately dilated. Ejection fraction is 3 0%. There is global hypokinesis Normal right ventricular size and systolic function Left atrium is mildly dilated. Right atrial size is normal Aortic valve is sclerotic and trileaflet without stenosis or regurgitation Mild mitral annular calcification. Mild to moderate mitral regurgitation Normal tricuspid valve with trace regurgitation. Right ventricular systolic pressure could not be es timated Wall motion Left Ventricle Left ventricle is moderately dilated. Left ventricular systolic function is moderately decreased. The re is normal left ventricular wall thickness. There is global hypokinesis of the left ventricle. Ther e is no ventricular septal defect visualized. LVEF is 30%. Right Ventricle The right ventricle is normal size. The right ventricular systolic function is normal. Atria Left atrium is mildly dilated. The right atrium size is normal. The interatrial septum is intact wit h no evidence for an atrial septal defect. Aortic Valve The Aortic valve is sclerotic. Aortic valve is trileaflet. There is no aortic valvular stenosis. No a ortic regurgitation is present. Mitral Valve The mitral valve is normal in structure. Mild mitral annular calcification. No evidence of mitral avril ve stenosis. Mild to moderate mitral regurgitation. Tricuspid Valve The tricuspid valve is normal in structure. There is no tricuspid valve stenosis. Trace tricuspid reg urgitation. Unable to assess PA pressure. Pulmonic Valve The pulmonary valve is normal in structure. There is no pulmonic valvular stenosis. Trace to mild pul annette regurgitation. Great Vessels The aortic root is normal in size. Ascending aorta is not well visualized. Aortic arch is normal in c aliber. IVC is normal in size and collapses >50% with inspiration. Pericardium There is no pericardial effusion. 2D Dimensions IVSD d PLAX 0.75 cm F: 0.6-1.0 LV Vol A2C d MOD 222.4 mL LVPW d PLAX 0.79 cm F: 0.6 - 1.0 LV Vol A4C d MOD 219.7 mL LVID d PLAX 6.42 cm F: 3.8 - 5.2 LA vol/ BSA A2C s A-L 42.7 mL/m2 LVDs 5.70 cm F: 2.2 - 3.5 LA vol/ BSA A4C s A-L 51.6 mL/m2 Ao Root d 3.11 cm F: 2.7 - 3.3 LA Vol/ BSA Biplane s A-L 48.6 mL/m2 LV EF Teichholz 23.6 % LA Area A4C s MOD 27.71 cm2 LVEF (Chase's) 28.01 % F: 54 - 74 LA Area A2C s MOD 24.33 cm2 LV Volume 166.61 mL F: 46 - 106 LV EF A4C MOD 30.0 % LV Volume Index 81.27 mL/m2 F: 29 - 61 LV EF A2C MOD 29.3 % LV Vol Biplane MOD 223.7 mL LV EF Biplane MOD 28.0 % FS 11.10 % SV 62.68 mL SV Index 30.67 mL/m2 M-Mode TAPSE 2.22 cm (M/F) >1.7 LV Diastology MV E' medial 0.051 (>0.07 m/s) E/A Ratio 1.1 LV E/e MED 16.90 (<14) MV E Vmax 0.87 (0.4-1.3 m/s) MV E' lateral 0.077 (>0.1 m/s) MV A Vmax 0.80 (0.4-1.3 m/s) LV E/e LAT 11.25 (<14) MV E/A Ratio 1.04 MV E/E' medial 16.90 MV E/E' lateral 11.27 Aortic Valve LVOT Area 3.27 cm2 AoV Area Vmax 2.40 cm2 LVOT Vmax 1.15 m/s AoV Area/ BSA (Vmax) 1.17 cm2/m2 LVOT Mean Sandro. 0.75 m/s RAO Mean Sandro. 2.14 cm2 LVOT Peak Grad 5.3 mmHg RAO Mean Sandro. Index 1.05 cm2/m2 LVOT Mean Grad 2.7 mmHg LVOT VTI 0.250 m LVOT Diam s 2.00 cm AoV Vmax 1.57 m/s Velocity Ratio 0.73 AoV Mean Sandro. 1.14 m/s AoV Peak Grad 9.9 mmHg LVOT SV 81.83 mL AoV Mean Grad 5.8 mmHg AoV VTI 0.331 m AoV Area VTI 2.47 cm2 AoV Area/ BSA (VTI) 1.21 cm/m2 Mitral Valve MV DT 176 (160-240 msec) MV PHT 51 msec MV Area PHT 4.31 cm2 Pulmonary Valve PV Vmax 0.95 (0.5-1.5 m/s) RVOT Peak Gr. 2.32 mmHg PV Peak Grad 3.6 mmHg RVOT Mean Gr. 1.15 mmHg PV Mean Grad 1.8 mmHg RVOT VTI 0.186 m PV VTI 0.234 m RVOT Vmax 0.76 m/s
== END 2023-01-24 01:11 ==
LOC: DI 00:51
PROVIDERS: PCP Family Medicine; Visit Provider Family Medicine
DX: D86.9 Sarcoidosis, unspecified (principal)
CPT/HCPCS: 93306

== ENCOUNTER 2023-02-20 20:56 | Outpatient (REF) | payer MEDICARE, SELFPAY ==
[2023-02-20 16:33] LABS: COMMENT (LAB VIEW ONLY) 107.47 mg/dL; Microalb ug/mg Crea 16.8 ug/mg Cr
[2023-02-20 16:37] LABS: ALT 22 U/L (14-59); AST 11 U/L (15-37); Albumin 3.8 g/dL (3.4-5.0); Alkaline Phosphatase 70 U/L (46-116); Anion Gap 11.5 mmol/L (3-11); BUN 30 mg/dL (7-18); Bilirubin, Total 0.4 mg/dL (0.2-1.0); CO2 20.5 mmol/L (21.0-32.0); CREATININE 1.6 mg/dL (0.55-1.02); Calcium 8.6 mg/dL (8.5-10.1); Chloride 108 mmol/L (98-107); Estimated GFR 34.91 (mL/min/1.73m2); Glucose 169 mg/dL (74-106); Potassium 4.1 mmol/L (3.5-5.1); Sodium 140 mmol/L (136-145); Total Protein 7.8 g/dL (6.4-8.2)
[2023-02-20 18:23] LABS: Hemoglobin A1C 6.2 % (<5.7)
[2023-02-21 18:29] LABS: Parathyroid Hormone,Intact 73 pg/mL (19-88)
== END 2023-02-20 20:57 | disposition home or self-care (01) ==
LOC: NCHCN 20:56
PROVIDERS: PCP Family Medicine; Visit Provider Family Medicine
DX: R73.03 Prediabetes (principal); N18.30 Chronic kidney disease, stage 3 unspecified; I10 Essential (primary) hypertension; E55.9 Vitamin D deficiency, unspecified
CPT/HCPCS: 80053; 82306; 82043; 82570; 83036; 83970

== ENCOUNTER → 2023-02-21 09:15 | Outpatient (BNVA) | payer MEDICARE, SELFPAY | PROVIDERS: PCP Family Medicine; Referring Provider Family Medicine; Visit Provider Psychiatry & Neurology Neurology | DX: G62.89 Other specified polyneuropathies (principal); G56.03 Carpal tunnel syndrome, bilateral upper limbs; G56.21 Lesion of ulnar nerve, right upper limb; I10 Essential (primary) hypertension | CPT/HCPCS: 99214 ==

== ENCOUNTER → 2023-03-22 09:29 | Outpatient (BNVA) | payer MEDICARE, SELFPAY | PROVIDERS: PCP Family Medicine; Referring Provider Family Medicine; Visit Provider Internal Medicine Cardiovascular Disease | DX: D86.85 Sarcoid myocarditis (principal); I48.91 Unspecified atrial fibrillation; Z79.01 Long term (current) use of anticoagulants; D86.9 Sarcoidosis, unspecified | CPT/HCPCS: 99212 ==

== ENCOUNTER 2023-04-06 00:11 | Outpatient (CLI) | payer MEDICARE, SELFPAY ==
--- NOTE | 2023-04-06 | DI.MAMMO_ITS ---
Exam(s) MAMMO SCREENING EXAM: MAMMO SCREENING CLINICAL HISTORY: SCREENING, Z12.39 TECHNIQUE: Mammograms were interpreted according to the usual protocol including computer analysis w [employer] CAD system, tomosynthesis and C-view imaging. COMPARISON: 2012 through 2021 FINDINGS: The breasts are composed of scattered fibroglandular densities, Breast Density category B. No suspicious masses or suspicious microcalcifications are seen. No skin thickening or abnormal axillary lymph nodes are seen. There has been no significant change from prior exams. IMPRESSION: BI-RADS Category 1, Negative mammogram Yearly screening mammography is recommended. Breast Density - Category B, scattered fibroglandular densities. A negative radiographic report should not delay biopsy if a dominant or clinically suspicious mass is present. Up to ten percent of cancers are not identified on mammography. A negative report may reinforce clinical impression. Adenosis and dense breasts may obscure an underlying neoplasm. False positive reports average 6 to 10%. Patient will receive a letter notifying them of these results.
--- NOTE | 2023-04-06 15:00 | DI.DEXA_ITS ---
Exam(s) XR DEXA BONE DENSITY W/WO COMFORT EXAM: XR DEXA BONE DENSITY W/WO COMFORT CLINICAL HISTORY: SCREENING FOR OSTEOPOROSIS, Z13.820, ASYMPTOMATIC POSTMENOPAUSAL, Z78.0 TECHNIQUE: [employer] C densitometer analysis of left hip, lumbar spine and left forearm. Lat eral survey image of the thoracic and lumbar spine. COMPARISON: 23 June 2020 FINDINGS: Lateral view of the thoracic and lumbar spine shows no evidence of compression fractures. Bone mineral density measurements of the lumbar spine correspond to a total T-score of 1.0,, in the normal range. 3.4 percent decrease from 2020 Bone mineral density measurements of the left hip correspond to a total T-score of 0.7. The femoral neck T-score is -0.9, in the normal range. 3.1 percent decrease from prior.. Theleft forearm bone mineral density measurements correspond to a T-score of the distal 3rd of 0.3, in the normal range. 5.7 percent increase from prior. IMPRESSION: Normal bone mineral density.
== END 2023-04-06 00:31 ==
LOC: DI 00:11
PROVIDERS: PCP Family Medicine; Visit Provider Family Medicine
DX: Z78.0 Asymptomatic menopausal state (principal); Z13.820 Encounter for screening for osteoporosis; Z12.31 Encounter for screening mammogram for malignant neoplasm of breast
CPT/HCPCS: 77063; 77067; 77080

== ENCOUNTER 2023-04-13 01:02 | Outpatient (RCR) | payer MEDICARE, SELFPAY ==
[2023-04-09 08:34] VITALS: PULSE 59; RESP 17; TEMP 36.5; O2SAT 97
[2023-04-09] MEDS: IMMUNE GLOBULIN 40 GM/400 ML BTL IVPB (08:36)
[2023-04-09] MEDS: Normal Saline Flush 10 ML SYR IVP (08:37)
[2023-04-09 08:53] VITALS: BP 114/60; PULSE 54; TEMP 36.7; O2SAT 99
[2023-04-09 09:12] VITALS: BP 102/69; PULSE 54; RESP 17; TEMP 36.6; O2SAT 96
[2023-04-09 09:28] VITALS: BP 113/74; PULSE 53; RESP 17; TEMP 36.7; O2SAT 96
[2023-04-09 09:59] VITALS: BP 122/62; PULSE 53; RESP 17; TEMP 37; O2SAT 96
[2023-04-09 10:30] VITALS: BP 122/73; PULSE 52; RESP 17; TEMP 36.6; O2SAT 97
[2023-04-10] MEDS: IMMUNE GLOBULIN 40 GM/400 ML BTL IVPB (08:03)
[2023-04-10] MEDS: Normal Saline Flush 10 ML SYR IVP (08:04)
[2023-04-10 08:09] VITALS: BP 111/70; PULSE 55; RESP 17; TEMP 36.7; O2SAT 97
[2023-04-10 08:25] VITALS: BP 99/67; PULSE 58; RESP 17; TEMP 36.7; O2SAT 97
[2023-04-10 08:41] VITALS: BP 109/72; PULSE 57; RESP 17; TEMP 36.6; O2SAT 96
[2023-04-10 08:55] LABS: CREATININE 1.6 mg/dL (0.55-1.02)
[2023-04-10 09:10] VITALS: BP 118/78; PULSE 55; RESP 17; TEMP 36.4; O2SAT 99
[2023-04-10 09:40] VITALS: BP 125/72; PULSE 51; RESP 17; TEMP 36.7; O2SAT 98
[2023-04-10 10:10] VITALS: BP 120/68; PULSE 53; RESP 17; TEMP 36.6; O2SAT 97
[2023-04-11] MEDS: IMMUNE GLOBULIN 40 GM/400 ML BTL IVPB (07:44)
[2023-04-11 07:49] VITALS: BP 115/74; PULSE 60; RESP 17; TEMP 36.6; O2SAT 97
[2023-04-11 08:06] VITALS: BP 112/71; PULSE 58; RESP 17; TEMP 36.7; O2SAT 100
[2023-04-11 08:21] VITALS: BP 125/73; PULSE 57; RESP 17; TEMP 36.5; O2SAT 96
[2023-04-11 08:36] VITALS: BP 128/71; PULSE 55; RESP 17; TEMP 36.6; O2SAT 98
[2023-04-11 09:08] VITALS: BP 123/73; PULSE 53; RESP 17; TEMP 36.7; O2SAT 99
[2023-04-11 09:38] VITALS: BP 127/84; PULSE 54; RESP 17; TEMP 36.7; O2SAT 100
[2023-04-12 07:48] VITALS: BP 115/75; PULSE 59; RESP 17; TEMP 36.5; O2SAT 97
[2023-04-12] MEDS: IMMUNE GLOBULIN 40 GM/400 ML BTL IVPB (07:50)
[2023-04-12 08:11] VITALS: BP 118/72; PULSE 60; RESP 17; TEMP 36.6; O2SAT 97
[2023-04-12 08:32] VITALS: BP 106/69; PULSE 60; RESP 17; TEMP 36.6; O2SAT 97
[2023-04-12 08:57] VITALS: BP 118/78; PULSE 54; RESP 17; TEMP 36.3; O2SAT 97
[2023-04-12 09:31] VITALS: BP 114/73; PULSE 55; RESP 17; TEMP 36.8; O2SAT 99
[2023-04-13 07:40] VITALS: BP 127/79; PULSE 57; TEMP 36.6; O2SAT 98
[2023-04-13] MEDS: Normal Saline Flush 10 ML SYR IVP (07:45)
[2023-04-13] MEDS: IMMUNE GLOBULIN 40 GM/400 ML BTL IVPB (08:14)
[2023-04-13 08:35] VITALS: BP 108/74; PULSE 60; RESP 17; TEMP 36.6; O2SAT 100
[2023-04-13 08:50] VITALS: BP 107/74; PULSE 59; RESP 17; TEMP 36.6; O2SAT 98
[2023-04-13 09:00] VITALS: BP 117/75; PULSE 74; RESP 17; TEMP 36.6; O2SAT 100
[2023-04-13 09:15] LABS: CREATININE 1.6 mg/dL (0.55-1.02)
[2023-04-13 09:53] VITALS: BP 131/77; PULSE 58; RESP 17; TEMP 36.7; O2SAT 100
== END 2023-04-16 23:59 | disposition home or self-care (01) ==
LOC: INF 01:02
PROVIDERS: PCP Family Medicine; Visit Provider Psychiatry & Neurology Neurology
DX: D86.89 Sarcoidosis of other sites (principal); G62.89 Other specified polyneuropathies
CPT/HCPCS: 36415; 96365; 96366; 82565; J1459

== ENCOUNTER 2023-04-17 13:55 | Outpatient (CLI) | payer MEDICARE, SELFPAY ==
--- NOTE | 2023-04-17 13:45 | RT.EKG_ITS ---
APPROVED REPORT Exam: Resting ECG Reason for Exam: sarcoidosis screening Patient Location: O HR:69 bpm ECG Measurements Heart Rate 69 AXIS OH 213 P 31 QRSd 115 QRS -28 QT 424 T 58 QTc 455 Conclusion Sinus rhythm...normal P axis, V-rate 50- 99 Borderline prolonged OH interval...OH >212, V-rate 50- 90 Borderline left axis deviation Poor R wave progression Minor ST abnormalities Atrial premature beats
== END 2023-04-17 13:56 | disposition home or self-care (01) ==
LOC: CARDOPNVT 13:55
PROVIDERS: PCP Family Medicine; Visit Provider Student in an Organized Health Care Education/Training Program
DX: D86.9 Sarcoidosis, unspecified (principal); I42.9 Cardiomyopathy, unspecified
CPT/HCPCS: 93005; 93010

== ENCOUNTER 2023-06-18 11:40 | Outpatient (REF) | payer MEDICARE, SELFPAY ==
[2023-06-18 16:17] LABS: MCH 29.8 pg (27.0-33.0); MCHC 32.6 % (32.0-36.0); MCV 92 fL (80-95); MPV 10.9 fL (8.0-11.0); Platelet Count 205 10^3/uL (130-400); RBC 5.03 10^6/uL (3.93-5.22); RDW 13.6 % (11.7-14.6); RDW-SD 45.7 fL; WBC 6.47 10^3/uL (4.4-10.8)
[2023-06-18 16:53] LABS: BUN 27 mg/dL (7-18); CREATININE 1.5 mg/dL (0.55-1.02); Calcium 9.3 mg/dL (8.5-10.1); Chloride 107 mmol/L (98-107); Estimated GFR 37.49 (mL/min/1.73m2); Glucose 150 mg/dL (74-106); PHOSPHORUS 4.2 mg/dL (2.6-4.7); Sodium 142 mmol/L (136-145)
[2023-06-19 11:36] LABS: Parathyroid Hormone,Intact 43 pg/mL (19-88)
== END 2023-06-18 11:41 | disposition home or self-care (01) ==
LOC: NCHCN 11:40
PROVIDERS: PCP Family Medicine; Visit Provider Family Medicine
DX: N25.81 Secondary hyperparathyroidism of renal origin (principal); N18.30 Chronic kidney disease, stage 3 unspecified
CPT/HCPCS: 80048; 85027; 83970; 84100

== ENCOUNTER 2023-07-06 01:41 | Outpatient (RCR) | payer MEDICARE, SELFPAY ==
[2023-04-17 00:10] VITALS: BP 131/77; PULSE 58; RESP 17; TEMP 36.7
[2023-07-02] MEDS: Normal Saline Flush 10 ML SYR IVP (08:08)
[2023-07-02] MEDS: IMMUNE GLOBULIN 40 GM/400 ML BTL IVPB (08:09)
[2023-07-02 08:15] VITALS: BP 99/62; PULSE 53; RESP 18; TEMP 36.6; O2SAT 97
[2023-07-02 08:30] VITALS: BP 103/67; PULSE 52; TEMP 36.6; O2SAT 97
[2023-07-02 08:45] VITALS: BP 107/68; PULSE 52; RESP 17; TEMP 36.3; O2SAT 96
[2023-07-02 09:15] VITALS: BP 122/75; PULSE 51; RESP 17; TEMP 36.6; O2SAT 99
[2023-07-02 09:45] VITALS: BP 134/83; PULSE 59; RESP 17; TEMP 36.8; O2SAT 99
[2023-07-03 07:45] VITALS: BP 121/65; PULSE 53; RESP 17; TEMP 36.5; O2SAT 100
[2023-07-03] MEDS: IMMUNE GLOBULIN 40 GM/400 ML BTL IVPB (07:45)
[2023-07-03 08:00] VITALS: BP 113/71; PULSE 55; RESP 17; TEMP 36.6; O2SAT 99
[2023-07-03 08:15] VITALS: BP 114/69; PULSE 54; RESP 17; TEMP 36.6; O2SAT 98
[2023-07-03 08:25] LABS: CREATININE 1.3 mg/dL (0.55-1.02); Estimated GFR 44.51 (mL/min/1.73m2)
[2023-07-03 08:45] VITALS: BP 123/72; PULSE 55; RESP 17; TEMP 36.7; O2SAT 98
[2023-07-03 09:15] VITALS: BP 117/78; PULSE 54; RESP 17; TEMP 36.7; O2SAT 98
[2023-07-04 07:39] VITALS: BP 97/66; PULSE 54; RESP 18; TEMP 36.1; O2SAT 100
[2023-07-04] MEDS: IMMUNE GLOBULIN 40 GM/400 ML BTL IVPB (07:44)
[2023-07-04 08:05] VITALS: BP 106/73; PULSE 58; RESP 17; TEMP 36.3; O2SAT 97
[2023-07-04 08:20] VITALS: BP 110/70; PULSE 56; RESP 17; TEMP 36.2; O2SAT 96
[2023-07-04 08:50] VITALS: BP 109/68; PULSE 53; RESP 17; TEMP 36.3; O2SAT 98
[2023-07-04 09:20] VITALS: BP 137/77; PULSE 53; RESP 17; TEMP 36.5; O2SAT 98
[2023-07-04 09:43] VITALS: BP 121/75
[2023-07-05 07:42] VITALS: BP 118/74; PULSE 57; RESP 17; TEMP 36.1; O2SAT 100
[2023-07-05] MEDS: IMMUNE GLOBULIN 40 GM/400 ML BTL IVPB (07:46)
[2023-07-05] MEDS: Normal Saline Flush 10 ML SYR IVP (07:47)
[2023-07-05 08:06] VITALS: BP 115/73; PULSE 57; RESP 17; TEMP 35.9; O2SAT 97
[2023-07-05 08:22] VITALS: BP 108/68; PULSE 58; RESP 17; TEMP 36.1; O2SAT 98
[2023-07-05 08:53] VITALS: BP 124/74; PULSE 57; RESP 17; TEMP 36.6; O2SAT 98
[2023-07-05 09:24] VITALS: BP 118/73; PULSE 55; RESP 18; TEMP 36.3; O2SAT 98
[2023-07-06] MEDS: Normal Saline Flush 10 ML SYR IVP (07:46)
[2023-07-06] MEDS: IMMUNE GLOBULIN 40 GM/400 ML BTL IVPB (07:46)
[2023-07-06 07:50] VITALS: BP 117/73; PULSE 52; RESP 17; TEMP 35.9; O2SAT 98
[2023-07-06 08:07] VITALS: BP 110/73; PULSE 51; RESP 17; TEMP 36.4; O2SAT 98
[2023-07-06 08:22] VITALS: BP 103/69; PULSE 46; RESP 17; TEMP 36; O2SAT 95
[2023-07-06 08:39] VITALS: BP 109/68; PULSE 49; RESP 17; TEMP 36; O2SAT 98
[2023-07-06 08:55] LABS: CREATININE 1.5 mg/dL (0.55-1.02); Estimated GFR 37.49 (mL/min/1.73m2)
[2023-07-06 09:04] VITALS: BP 129/79; PULSE 54; RESP 17; TEMP 36.1; O2SAT 98
[2023-07-06 09:09] VITALS: BP 117/67; PULSE 54; RESP 17; TEMP 36.3; O2SAT 98
== END 2023-07-17 23:59 | disposition home or self-care (01) ==
LOC: INF 01:41
PROVIDERS: PCP Family Medicine; Visit Provider Psychiatry & Neurology Neurology
DX: D86.89 Sarcoidosis of other sites; G61.9 Inflammatory polyneuropathy, unspecified
CPT/HCPCS: 36415; 96365; 96366; 82565; J1459

== ENCOUNTER 2023-07-28 17:03 | Inpatient (IN) | payer MEDICARE, SELFPAY ==
[2023-07-28] VITALS (61 sets, daily range): BP systolic 87–129; BP diastolic 33–87; PULSE 56–99; RESP 16–35; TEMP 36.8–39.4; O2SAT 88–98
--- NOTE | 2023-07-28 17:47 | W.ED.GENAD ---
Discharge Plan Disposition Patient Disposition: Admit to [facility] Condition: Serious Discharge Details Clinical Impression: Sepsis, Acute UTI, Pneumonia Primary Care Provider: Sammie Cordero ED Provider: Cheyanne Rhodes Home Meds and New Rx's Prescriptions: No Action furosemide 20 mg tablet 20 mg PO DAILY alendronate 70 mg tablet 70 mg PO QWEEK Entresto 49-51 mg tablet 1 tab PO BID Qty: 180 3RF Lumigan 0.01 % drops 1 drp ophthalmic (eye) HS cholecalciferol (vitamin D3) 50 mcg (2,000 unit) capsule 50 mcg PO DAILY apixaban 5 mg tablet 5 mg PO BID Qty: 120 3RF Farxiga 10 mg tablet 10 mg PO DAILY spironolactone 25 mg tablet 25 mg PO DAILY metoprolol succinate 100 mg tablet extended release 24 hr 200 mg PO HS Multi Complete with Iron 1 EACH tablet 1 tab-cap PO DAILY ascorbic acid (vitamin C) [Vitamin C] 500 MG tablet 500 mg PO DAILY vitamin E 400 UNIT capsule 400 unit PO DAILY Qty: 1 garlic 1 EACH capsule 1 ea PO DAILY Fish Oil 1 EACH capsule 1 ea PO DAILY calcitriol 0.25 mcg capsule 0.25 mcg PO .3 x a week latanoprost 0.005 % drops 1 drp ophthalmic (eye) DAILY timolol maleate 0.5 % drops 1 drp ophthalmic (eye) DAILY thiamine HCl (vitamin B1) [Vitamin B-1] 100 mg Tablet 100 mg PO DAILY acetaminophen [Tylenol] 325 mg Tablet 325 - 650 mg PO Q4H PRN PRNQty: 0 0RF Medical Decision Making 68-year-old female presents to the ER with chief complaint of vomiting diarrhea for the last 3 to 4 days. She does have an episode of emesis upon arrival. She reports she is unable to keep anything down. She does have a history of atrial fibrillation, chronic kidney disease stage III, sarcoidosis peripheral neuropathy hypertension hyperlipidemia dilated cardiomyopathy vitamin D deficiency she does take apixaban. She denies any pain although she is stating that she has some headaches. Work-up ordered including CBC CMP urinalysis lipase COVID swab saline and Zofran. Lactate 2.2 2033: Hospitalist Paged. 2039: Spoke with Dr. Dubon who is on for hospitalist, he agrees to accept patient to ICU for sepsis. Medical Records Medical records reviewed: Yes I reviewed the patient's medical records. Imaging Data Radiologic Study: Imaging: CT Scan Radiologist's impression: TECHNIQUE: Imaging protocol: Diagnostic computed tomography of the chest without contrast. COMPARISON: CT CHEST/ABD/PEL WO 12/24/2018 11:24 AM FINDINGS: Lungs: Large area of dense parenchymal consolidation with air bronchograms in apical right lung. Smaller, similar appearing infiltrate inferomedially in right lower lobe. Stable 1.8 cm nodule in lingula. Central airways patent. Pleural spaces: Unremarkable. No pneumothorax. No pleural effusion. Heart: Heart normal in size Coronary arteries: Coronary artery calcification. Lymph nodes: No adenopathy. Vasculature: No aortic aneurysm. Bones/joints: The spine demonstrates mild degenerative changes at multiple levels. Minute lucent lesions in multiple bones have decreased in number since prior. Soft tissues: Unremarkable. IMPRESSION: 1. Multifocal pneumonia right lung. 2. Minute lucent skeletal lesions have decreased in number. 3. Several additional non emergent findings IMPRESSION: 1. Perinephric fat stranding which could have multiple possible etiologies including scarring, 3rd spacing of fluid, inflammatory process and infection. 2. Minute lucent lesions in multiple bones have decreased in number and the remaining are the same or smaller in size. Mixed 3. Gallstone. 4. Minimal splenomegaly. 5. Several additional non emergent findings. Lab Data Lab results reviewed: Yes I reviewed the patient's lab results. Labs: 07/28/23 19:44 Urine - Reflex from Ua Urine Culture - Pending 07/28/23 17:45 Blood Blood Culture - Pending 07/28/23 17:30 Blood Blood Culture - Pending Laboratory Tests Range/Units 07/28/23 07/28/23 07/28/23 17:30 17:40 18:12 WBC (4.4-10.8) 10^3/uL 12.38 H RBC (3.93-5.22) 10^6/uL 4.70 Hgb (11.2-15.7) g/dL 14.0 Hct (36.0-46.0) % 41.8 MCV (80-95) fL 89 MCH (27.0-33.0) pg 29.8 MCHC (32.0-36.0) % 33.5 RDW (11.7-14.6) % 13.8 Plt Count (130-400) 10^3/uL 197 MPV (8.0-11.0) fL 11.7 H Immature Gran % 0.8 Neutrophils % 84.7 Lymphocytes % 4.9 Monocytes % 7.9 Eosinophils % 0.8 Basophils % 0.9 Nucleated RBC % (0.0-0.3) % 0.0 Absolute Neutrophils (1.2-6.7) 10^3/uL 10.49 H Absolute Lymphocytes (1.2-3.4) 10^3/uL 0.61 L Absolute Monocytes (0.1-0.8) 10^3/uL 0.98 H Absolute Eosinophils (0.0-0.7) 10^3/uL 0.10 Absolute Basophils (0.0-0.2) 10^3/uL 0.11 PT (9.1-11.1) sec 11.2 H INR (0.9-1.1) 1.1 APTT (23.6-32.8) sec 41.9 H VBG pH (7.31-7.41) 7.42 H VBG pCO2 (41-51) mmHg 33 L VBG pO2 mmHg 30 VBG HCO3 (23-28) mmol/L 21 L VBG Total CO2 (24-29) mmol/L 20 L VBG O2 Saturation % 56 VBG Base Excess (-2-3) mmol/L -3 L VBG Lactate (0.6-1.4) mmol/L 2.2 H* Sodium (136-145) mmol/L 134 L Potassium (3.5-5.1) mmol/L 3.9 Chloride (98-107) mmol/L 99 Carbon Dioxide (21.0-32.0) mmol/L 22.9 Anion Gap (3-11) mmol/L 12.1 H BUN (7-18) mg/dL 52 H Creatinine (0.55-1.02) mg/dL 2.5 H Est GFR (CKD-EPI 2020) (mL/min/1.73m2) 20.31 Glucose (74-106) mg/dL 213 H Calcium (8.5-10.1) mg/dL 9.9 Magnesium (1.8-2.4) mg/dL 2.6 H Total Bilirubin (0.2-1.0) mg/dL 0.5 AST (15-37) U/L 30 ALT (14-59) U/L 20 Alkaline Phosphatase (46-116) U/L 113 Troponin I (<or=60) ng/L 85 H* Total Protein (6.4-8.2) g/dL 9.2 H Albumin (3.4-5.0) g/dL 2.4 L Lipase (16-77) U/L 68 Urine Color (Yellow) Urine Clarity (Clear) Urine pH (5-8) Ur Specific Constantine (1.005-1.025) Urine Protein (Negative) mg/dL Urine Ketones (Negative) mg/dL Urine Blood (Negative) Urine Nitrite (Negative) Urine Bilirubin (Negative) Urine Urobilinogen (Up to 0.2) mg/dL Ur Leukocyte Esterase (Negative) Urine RBC (0-2) HPF Urine WBC (0-5) HPF Ur Epithelial Cells (Negative) HPF Urine Crystals (Negative) HPF Urine Bacteria (Negative) HPF Urine Casts (Negative) LPF Urine Mucus (Negative) Ur Culture Indicated? Urine Glucose (Negative) mg/dL COVID-19 Source Nasal/Nares SARS-CoV-2 (PCR) (Negative) Negative Range/Units 07/28/23 07/28/23 19:44 19:55 WBC (4.4-10.8) 10^3/uL RBC (3.93-5.22) 10^6/uL Hgb (11.2-15.7) g/dL Hct (36.0-46.0) % MCV (80-95) fL MCH (27.0-33.0) pg MCHC (32.0-36.0) % RDW (11.7-14.6) % Plt Count (130-400) 10^3/uL MPV (8.0-11.0) fL Immature Gran % Neutrophils % Lymphocytes % Monocytes % Eosinophils % Basophils % Nucleated RBC % (0.0-0.3) % Absolute Neutrophils (1.2-6.7) 10^3/uL Absolute Lymphocytes (1.2-3.4) 10^3/uL Absolute Monocytes (0.1-0.8) 10^3/uL Absolute Eosinophils (0.0-0.7) 10^3/uL Absolute Basophils (0.0-0.2) 10^3/uL PT (9.1-11.1) sec INR (0.9-1.1) APTT (23.6-32.8) sec VBG pH (7.31-7.41) VBG pCO2 (41-51) mmHg VBG pO2 mmHg VBG HCO3 (23-28) mmol/L VBG Total CO2 (24-29) mmol/L VBG O2 Saturation % VBG Base Excess (-2-3) mmol/L VBG Lactate (0.6-1.4) mmol/L Sodium (136-145) mmol/L Potassium (3.5-5.1) mmol/L Chloride (98-107) mmol/L Carbon Dioxide (21.0-32.0) mmol/L Anion Gap (3-11) mmol/L BUN (7-18) mg/dL Creatinine (0.55-1.02) mg/dL Est GFR (CKD-EPI 2020) (mL/min/1.73m2) Glucose (74-106) mg/dL Calcium (8.5-10.1) mg/dL Magnesium (1.8-2.4) mg/dL Total Bilirubin (0.2-1.0) mg/dL AST (15-37) U/L ALT (14-59) U/L Alkaline Phosphatase (46-116) U/L Troponin I (<or=60) ng/L 93 H* Total Protein (6.4-8.2) g/dL Albumin (3.4-5.0) g/dL Lipase (16-77) U/L Urine Color (Yellow) Yellow Urine Clarity (Clear) Cloudy Urine pH (5-8) 5.5 Ur Specific Constantine (1.005-1.025) 1.015 Urine Protein (Negative) mg/dL 100 H Urine Ketones (Negative) mg/dL Negative Urine Blood (Negative) Moderate H Urine Nitrite (Negative) Negative Urine Bilirubin (Negative) Negative Urine Urobilinogen (Up to 0.2) mg/dL 0.2 Ur Leukocyte Esterase (Negative) Small H Urine RBC (0-2) HPF 5-10 H Urine WBC (0-5) HPF 10-20 H Ur Epithelial Cells (Negative) HPF Few Urine Crystals (Negative) HPF Negative Urine Bacteria (Negative) HPF Moderate Urine Casts (Negative) LPF 0-2 Hyaline Urine Mucus (Negative) Trace Ur Culture Indicated? Yes Urine Glucose (Negative) mg/dL >=1000 H COVID-19 Source SARS-CoV-2 (PCR) (Negative) ECG Data Prior ECG tracings: not available for review HPI General Mode of arrival: ambulatory. Date/Time Provider Initiated Documentation: 07/28/23 17:11. Limitations to Documentation: no limitations. Information obtained by: patient, RN notes reviewed and old records reviewed. HPI Narrative: 68-year-old female presents to the ER with chief complaint of vomiting diarrhea for the last 3 to 4 days. She does have an episode of emesis upon arrival. She reports she is unable to keep anything down. She does have a history of atrial fibrillation, chronic kidney disease stage III, sarcoidosis peripheral neuropathy hypertension hyperlipidemia dilated cardiomyopathy vitamin D deficiency she does take apixaban. She denies any pain although she is stating that she has some headaches. Related Data Home Medications Medication Instructions Recorded Confirmed ascorbic acid (vitamin C) 500 mg 500 mg PO DAILY 05/15/13 04/10/23 tablet (Vitamin C) multivitamin-ferrous 1 tab-cap PO DAILY 05/15/13 04/10/23 fumarate-folic acid 18 mg-400 mcg tablet (Multi Complete with Iron) vitamin E 268 mg (400 unit) capsule 400 unit PO DAILY ##1 05/15/13 04/10/23 garlic 1 ea PO DAILY 05/21/14 04/10/23 omega-3 fatty acids-fish oil 340 1 ea PO DAILY 06/10/15 04/10/23 mg-1,000 mg capsule (Fish Oil) thiamine HCl (vitamin B1) 100 mg 100 mg PO DAILY 12/24/18 04/10/23 tablet (Vitamin B-1) acetaminophen 325 mg tablet 325 - 650 mg (1 - 2 x 325 mg) PO 12/31/18 04/10/23 (Tylenol) Q4H PRN PRN #0 tabs alendronate 70 mg tablet 70 mg PO QWEEK 02/21/19 04/10/23 furosemide 20 mg tablet 20 mg PO DAILY 08/28/19 04/10/23 bimatoprost 0.01 % eye drops 1 drp ophthalmic (eye) HS 08/19/20 04/10/23 (Lumigan) sacubitril 49 mg-valsartan 51 mg 1 tab PO BID #180 tabs 11/25/20 04/10/23 tablet (Entresto) cholecalciferol (vitamin D3) 50 50 mcg PO DAILY 01/17/21 04/10/23 mcg (2,000 unit) capsule calcitriol 0.25 mcg capsule 0.25 mcg PO .3 x a week 02/21/22 04/10/23 apixaban 5 mg tablet 5 mg PO BID #120 tabs 06/06/22 04/10/23 latanoprost 0.005 % eye drops 1 drp ophthalmic (eye) DAILY 01/11/23 04/10/23 timolol maleate 0.5 % eye drops 1 drp ophthalmic (eye) DAILY 01/11/23 04/10/23 dapagliflozin propanediol 10 mg 10 mg PO DAILY 02/21/23 04/10/23 tablet (Farxiga) spironolactone 25 mg tablet 25 mg PO DAILY 02/21/23 04/10/23 metoprolol succinate 100 mg 200 mg PO HS 04/10/23 04/10/23 tablet,extended release 24 hr Previous Rx's Medication Instructions Recorded acetaminophen 325 mg tablet 325 - 650 mg (1 - 2 x 325 mg) PO 12/31/18 (Tylenol) Q4H PRN PRN #0 tabs sacubitril 49 mg-valsartan 51 mg 1 tab PO BID #180 tabs 11/25/20 tablet (Entresto) apixaban 5 mg tablet 5 mg PO BID #120 tabs 06/06/22 Allergies Allergy/AdvReac Type Severity Reaction Status Date / Time feathers Allergy Intermediate Watery Verified 04/10/23 13:09 eyes, sneezing Dust Allergy Intermediate Watery Uncoded 04/10/23 13:09 eyes, sneezing, Environmental Allergy Intermediate Running Uncoded 04/10/23 13:09 nose, watery eyes, sneezing General Stated Complaint: Nausea/Vomit/Diar ANTOLIN: 3 Review of Systems All systems reviewed & are unremarkable except as noted in HPI and below Gastrointestinal Gastrointestinal: Reports diarrhea, Reports nausea and Reports vomiting PFSH All Active Problems (Updated 07/28/23 @ 20:48 by Cheyanne Rhodes NP) Pneumonia (Acute) Acute UTI (Acute) Sepsis (Acute) Sarcoidosis (Acute) Glaucoma (Chronic) Bilateral cataracts (Acute) Dyspnea on exertion (Acute) Hyperparathyroidism due to renal insufficiency (Acute) Screening for colon cancer (Acute) Serrated adenoma of colon (Acute) Tubular adenoma of colon (Acute) Hyperplastic colon polyp (Acute) Hypertension (Acute 05/21/14) untreated Acute renal failure (Acute) Adnexal mass (Acute) 5 cm hypoechoic left ovarian lesion most likely benign process. CA 125 currently pending DVT prophylaxis (Acute) Cardiomyopathy (Acute) Medical History Breast cancer screening H/O adenomatous polyp of colon High triglycerides Complaint of paresthesia Vitamin D deficiency Osteoporosis Ulnar neuropathy of right upper extremity Carpal tunnel syndrome on both sides Peripheral neuropathy Positive fecal immunochemical test 2019 Atrial fibrillation Chronic kidney disease, stage 3 f/u a@ [facility] [place] per pt. stated she was told she didn't have this dx Prediabetes Menopausal syndrome Discharge planning issues Lung nodule Lytic lesion of bone on x-ray Hypercalcemia Dilated cardiomyopathy Hyperlipidemia (05/15/13) Essential hypertension Surgical History Hx of colonoscopy S/P right oophorectomy Oophrectomy, Left Left ovary present at the time of pelvic ultrasound 12/24/2018 Diagnostic Laproscopy (~1980) During infertility evaluation when younger Appendectomy Family History Mother Dementia Father Prostate cancer Hypertension Hyperlipidemia Heart disease Social History Smoking/Tobacco Use Status: Never Smoking risk assessment performed?: Yes Alcohol Intake: never Drug use: Never Substance use type: does not use Housing: house Number of Children: 3 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 Do you feel safe at home: Yes Do you feel safe in your relationship?: Yes Additional Social history: live alone Exam Narrative Exam Narrative: Constitutional: Alert and oriented x3. Appears stated age. Normal body habitus. Head: Normocephalic, no trauma. Eyes: Pupils PERRL, Red reflex noted, EOM's intact. Eyelids symmetrical without lesions, discharge, or swelling. ENT: Bilateral TM's WNL, External ear normal to inspection, no mastoid TTP, swelling, or erythema, Nasal turbinates WNL, no nasal discharge. Normal dentition, Posterior pharynx WNL, no exudate. Chest: RRR, Normal S1, S2, distal pulses intact. Resp: Lungs clear to auscultation bilaterally, no wheezes, rales, or rhonchi. Abdomen: Soft, non-distended, Normoactive bowel sounds all 4 quads. Musculoskeletal: Normal gait, 5/5 strength to all four extremities. Skin: No suspicious rashes or lesions. Capillary refill less than 2 sec. Neurologic: Cranial nerves II-XII intact. Alert and oriented x 3. Motor: No deficits noted. Sensory: Intact bilaterally all 4 extremities. Reflexes: DTR's intact bilaterally.. Hematologic/Lymphatic: No ecchymosis, no lymphadenopathy. Course Vital Signs Vital signs: Vital Signs Temperature 36.8 C 07/28/23 17:09 Pulse 85 07/28/23 17:09 Respiratory Rate 18 07/28/23 17:09 Blood Pressure 116/56 L 07/28/23 17:09 Pulse Oximetry 95 07/28/23 17:09 Temperature 36.8 C 07/28/23 17:09 Temperature Source Oral 07/28/23 17:09 Pulse 85 07/28/23 17:09 Respiratory Rate 18 07/28/23 17:09 Blood Pressure 116/56 L 07/28/23 17:09 Blood Pressure Position Sitting 07/28/23 17:09 Pulse Oximetry 95 07/28/23 17:09 Oxygen Delivery Method Room Air 07/28/23 17:09 Oxygen Flow Rate 0 07/28/23 17:09 Lab/Test Results Lab/Test Results: 07/28/23 17:12 Blood Blood Culture - Pending 07/28/23 17:12 Blood Blood Culture - Pending
[2023-07-28] MEDS: Normal Saline 1,000 ML 1000 ML IV (17:50)
[2023-07-28] MEDS: Ondansetron 4 MG/2 ML VIAL IVP (17:51)
[2023-07-28 17:52] LABS: Lactate 2.2 mmol/L (0.6-1.4)
[2023-07-28 18:00] LABS: Absolute Basophil Count 0.11 10^3/uL (0.0-0.2); Absolute Lymphocyte Count 0.61 10^3/uL (1.2-3.4); Absolute Monocyte Count 0.98 10^3/uL (0.1-0.8); Basophils % 0.9; Eosinophils % 0.8; HCT 41.8 % (36.0-46.0); Immature Grans % 0.8; Lymphocytes % 4.9; MCH 29.8 pg (27.0-33.0); MCHC 33.5 % (32.0-36.0); MCV 89 fL (80-95); MPV 11.7 fL (8.0-11.0); Monocytes % 7.9; Neutrophils % 84.7; Platelet Count 197 10^3/uL (130-400); RDW 13.8 % (11.7-14.6); RDW-SD 44.9 fL; WBC 12.38 10^3/uL (4.4-10.8)
--- NOTE | 2023-07-28 18:00 | DI.CT_ITS ---
Exam(s) CT CHEST/ABD/PEL WO EXAM: CT CHEST/ABD/PEL WO CLINICAL HISTORY: Vomiting, Diarrhea, fever. TECHNIQUE: Imaging Protocol: Axial computed tomography images with coronal and sagittal reformatted images were created and reviewed CONTRAST MATERIAL: Intravenous: none Oral: None COMPARISON: CT CT CHEST/ABD/PEL WO from 12/24/2018 FINDINGS: CHEST: LUNGS: There is a prominent area of infiltrate in the right upper lobe extending from the apex down i nto the posterior segment and exhibiting multiple air bronchograms. There is also a significant area of pleural based infiltrate in the right lower lobe medially paraspinal measuring 3.2 x 2.5 cm, also exhibiting air bronchograms and also not previously present on the 2019 CT study. There is no pleur al effusion. In the opposite-left lung there is an unchanged nodular density in the superior lingula r segment which measures 2.0 by 1.7 cm, unchanged. There is also a small subpleural nodule measuring 3 mm in the lateral basal segment of the left lower lobe which has slightly decreased in size from 2 019. No new left lung nodules. There are no pleural effusions on either side. No significant findi ngs in the trachea and mainstem bronchi. No bronchiectasis evident. MEDIASTINUM: No obvious hilar nor mediastinal adenopathy. Small calcifications noted in the anterior aspect of the left thyroid lobe.Cannot determine if this is within a nodule. CARDIAC: Heart size normal. Minimal thickening of the pericardium is unchanged. No prominent perica rdial effusion.Caliber of the thoracic aorta is within normal limits. OSSEOUS: No significant osseous lesions.. ABDOMEN: There is no ascites. LIVER: Mildly prominent. Mild steatosis. No discrete focal hepatic lesions evident on this non few study. GALLBLADDER/BILIARY: There is a 1.2 x 1.1 cm gallstone noted. Was previously in the fundus and now i s in the gallbladder neck region. Gallbladder is not distended nor obviously edematous. CBD is not dilated. PANCREAS: No evidence of obvious pancreatic mass nor dilatation of the pancreatic duct. SPLEEN: Splenomegaly again noted. Cephalocaudal spleen size is 14.5 cm. No new obvious intrasplenic masses seen on this non infused CT study. ADRENALS: There are no new significant adrenal masses. Slight thickening of the left adrenal gland i s unchanged. KIDNEYS: There is perinephric streaking now evident. Slightly more prominent around the right kidney . No other right kidney findings. No calculi. No hydronephrosis nor hydroureter. There is a cystic st ructure in the lateral cortex of the opposite-left kidney measuring 1.3 x 1.3 cm which was not eviden t on the prior 2019 study. Difficult to assess without IV contrast. No calculi nor hydronephrosis on either side. No hydroureter. No new findings in the urinary bladder. ABDOMINAL AORTA: Abdominal aorta is not enlarged. LYMPH NODES: There is no retroperitoneal nor para-aortic adenopathy. ABDOMINAL WALL/GI: There is a fat only containing midline supraumbilical hernia. There is a well-defined fat density mass in the wall of the cecum which measures 6 cm by 4 cm by 3.6 cm, similar to previous study. PELVIS: LYMPH NODES: There is no intrapelvic nor inguinal adenopathy. GI: Appendix cannot be identified as a separate structure. The fatty lesion may be of appendix origi n.There are scattered sigmoid diverticuli without evidence of acute diverticulitis. Sigmoid is redun dant and extends into the right-side of the abdomen.There are sigmoid diverticuli. No evidence of ac [place] diverticulitis. URINARY BLADDER: No calculi nor obvious masses evident REPRODUCTIVE: Uterus size upper normal. Ovaries are difficult to identify separate structures. OSSEOUS: No significant osseous lesions. No fractures. Multilevel degenerative disc disease chronic disc space narrowing at L3-4 and L5-S1 le vels. IMPRESSION: 1. Compared to prior CT scan of December 2018 there is now new prominent non cavitated infiltrate in the right upper lobe as well as another area of infiltrate in the medial aspect of the right lower lobe, not associated with pleural effusions. Also no obvious associated adenopathy. A 2.0 x 1.7 cm nonca lcified nodule in the left lung lingular segment is unchanged. No new left lung infiltrates. No ple ural effusions.. 2. No intrathoracic or axillary adenopathy. 3. Splenomegaly noted with cephalocaudal measurement of the spleen being 14.5 cm 4. there is a 1.3 x 1.3 cm cystic structure in the left kidney which was not previously present. Dif ficult to assess without IV contrast there is bilateral perinephric streaking which was also not evid ent in 2019. No calculi nor hydronephrosis. No hydroureter. No calculi evident in the urinary blad wu. 5. Again noted is a well-defined 6 x 4 x 3.6 similar fatty lesion in the wall of the cecum again not ed, similar in size to previous. This is immediately adjacent to the ileocecal valve. The appendix again cannot be identified as a separate structure. There are no surgical clips in this region. Sigmoid diverticuli without evidence of acute diverticulitis. Cholelithiasis again noted. No evidence of acute cholecystitis nor dilatation of the biliary tree. Other findings as above. RADIATION DOSE DELIVERED: Total DLP DATA REPOSITORY: All CT scans at this facility are submitted to the National Radiology Data Registry (NRDR) Dose Index Registry (DIR) with the [employer] (A[employer]). RADIATION OPTIMIZATION: All CT scans at this facility use at least one of these dose optimization te chniques: automated exposure control; mA and/or kV adjustment per patient size (includes targeted exa ms where dose is matched to clinical indication); or iterative reconstruction.
[2023-07-28 18:03] LABS: Absolute Neutrophil Count 10.49 10^3/uL (1.2-6.7)
[2023-07-28 18:07] LABS: INR 1.1 (0.9-1.1); PTT Activated 41.9 sec (23.6-32.8); Prothrombin Time 11.2 sec (9.1-11.1)
[2023-07-28 18:08] LABS: Source Nasal/Nares
[2023-07-28] MEDS: ACETAMINOPHEN 1,000 MG/100 ML BTL 400 MG IVPB (18:15)
--- NOTE | 2023-07-28 18:15 | RT.EKG_ITS ---
APPROVED REPORT Exam: Resting ECG Reason for Exam: Vomiting Patient Location: E HR:90 bpm ECG Measurements Heart Rate 90 AXIS MA 169 P 48 QRSd 114 QRS -28 QT 384 T 60 QTc 470 Conclusion Sinus rhythm...normal P axis, V-rate 60- 99 Normal sinus rhythm at a rate of 90. Left axis deviation with interventricular conduction delay. MA and QTc within normal limits. No acute injury pattern. Compared to prior left axis deviation and m ildly widened QRS is similar. No acute injury pattern. No change compared to prior.
[2023-07-28 18:16] LABS: ALT 20 U/L (14-59); AST 30 U/L (15-37); Albumin 2.4 g/dL (3.4-5.0); Alkaline Phosphatase 113 U/L (46-116); Anion Gap 12.1 mmol/L (3-11); BUN 52 mg/dL (7-18); Bilirubin, Total 0.5 mg/dL (0.2-1.0); CO2 22.9 mmol/L (21.0-32.0); CREATININE 2.5 mg/dL (0.55-1.02); Calcium 9.9 mg/dL (8.5-10.1); Chloride 99 mmol/L (98-107); Estimated GFR 20.31 (mL/min/1.73m2); Glucose 213 mg/dL (74-106); Lipase 68 U/L (16-77); Magnesium 2.6 mg/dL (1.8-2.4); Potassium 3.9 mmol/L (3.5-5.1); Sodium 134 mmol/L (136-145); Total Protein 9.2 g/dL (6.4-8.2)
[2023-07-28 18:16] LABS: BE (Venous) -3 mmol/L (-2-3); HCO3 (Venous) 21 mmol/L (23-28); O2 Sat (Venous) 56 %; TCO2 (Venous) 20 mmol/L (24-29); pCO2 (Venous) 33 mmHg (41-51); pH (Venous) 7.42 (7.31-7.41); pO2 (Venous) 30 mmHg
[2023-07-28 18:18] LABS: Troponin I 85 ng/L (<or=60)
[2023-07-28 18:39] LABS: COVID-19 PCR Negative (Negative)
[2023-07-28] MEDS: AZITHROMYCIN 500 MG in Normal Saline 250 ML 250 MG IVPB (19:33)
[2023-07-28] MEDS: cefTRIAXone 1 GM/50 ML BAG IVPB (19:33)
[2023-07-28 19:48] LABS: Bilirubin Negative (Negative); Blood Moderate (Negative); Clarity Cloudy (Clear); Glucose >=1000 mg/dL (Negative); Ketones Negative (Negative); Leukocyte Esterase Small (Negative); Nitrite Negative (Negative); Specific Gravity 1.015 (1.005-1.025); Urobilinogen 0.2 mg/dL (Up to 0.2); pH 5.5 (5-8)
[2023-07-28 19:58] LABS: Bacteria Moderate HPF (Negative); C & S Indicated? Yes; Casts 0-2 Hyaline LPF (Negative); Crystals Negative HPF (Negative); Epithelial Cells Few HPF (Negative); Mucus Trace (Negative)
--- NOTE | 2023-07-28 20:15 | RT.EKG_ITS ---
APPROVED REPORT Exam: Resting ECG Reason for Exam: Repeat Patient Location: E HR:84 bpm ECG Measurements Heart Rate 84 AXIS OK 175 P 46 QRSd 112 QRS -40 QT 394 T 32 QTc 467 Conclusion Sinus rhythm...normal P axis, V-rate 60- 99 Ventricular premature complex...V complex w/ short R-R interval Normal sinus rhythm at a rate of 84. Left axis deviation. No signs of LVH. No ST segment abnormali ties. No T wave inversions. No acute injury pattern. Appears similar to prior dated earlier this e vening.
[2023-07-28 20:22] LABS: Troponin I 93 ng/L (<or=60)
[2023-07-28] MEDS: Aspirin 81 MG CHEW 324 MG CH (20:26)
--- NOTE | 2023-07-28 20:36 | DI.VRAD_ITS ---
PROCEDURE INFORMATION: Exam: CT Chest Without Contrast; Diagnostic Exam date and time: 07/28/2023 6:34 PM Age: 68 years old Clinical indication: Fever and nausea and vomiting; Fever and shortness of breath TECHNIQUE: Imaging protocol: Diagnostic computed tomography of the chest without contrast. COMPARISON: CT CHEST/ABD/PEL WO 12/24/2018 11:24 AM FINDINGS: Lungs: Large area of dense parenchymal consolidation with air bronchograms in apical right lung. Smaller, similar appearing infiltrate inferomedially in right lower lobe. Stable 1.8 cm nodule in lingula. Central airways patent. Pleural spaces: Unremarkable. No pneumothorax. No pleural effusion. Heart: Heart normal in size Coronary arteries: Coronary artery calcification. Lymph nodes: No adenopathy. Vasculature: No aortic aneurysm. Bones/joints: The spine demonstrates mild degenerative changes at multiple levels. Minute lucent lesions in multiple bones have decreased in number since prior. Soft tissues: Unremarkable. IMPRESSION: 1. Multifocal pneumonia right lung. 2. Minute lucent skeletal lesions have decreased in number. 3. Several additional non emergent findings PROCEDURE INFORMATION: Exam: CT Abdomen And Pelvis Without Contrast Exam date and time: 07/28/2023 6:34 PM Age: 68 years old Clinical indication: Fever and nausea and vomiting; Fever and shortness of breath TECHNIQUE: Imaging protocol: Computed tomography of the abdomen and pelvis without contrast. COMPARISON: CT CHEST/ABD/PEL WO 12/24/2018 11:24 AM FINDINGS: Liver: There is diffuse decrease in hepatic parenchymal density, consistent with mild fatty infiltration. No mass. Gallbladder and bile ducts: Gallstone. No biliary ductal dilatation. Pancreas: Normal. No ductal dilation. Spleen: Minimal splenomegaly. Adrenal glands: Normal. No mass. Kidneys and ureters: No radiopaque renal or ureteric calculi. No hydronephrosis. There is now nwud-op-dqljrkkr stranding of perinephric fat bilaterally. 1.5 cm cyst is present in interpolar left kidney. Stomach and bowel: Cecal lipoma is unchanged in size, measuring approximately 5.5 cm. No dilated loops of small bowel or colonic dilatation. There are few colonic diverticula. Appendix: No evidence of appendicitis. Intraperitoneal space: Unremarkable. No free air. No significant fluid collection. Vasculature: Unremarkable. No abdominal aortic aneurysm. Lymph nodes: Unremarkable. No enlarged lymph nodes. Urinary bladder: Unremarkable as visualized. Reproductive: Anteverted uterus follicles or small cysts in left ovary have decreased in size. No radiopaque renal or ureteric calculi. No hydronephrosis. There is now okza-bq-wdulrocu stranding of perinephric fat bilaterally. 1.5 cm cyst is present in interpolar left kidney. Bones/joints: The spine demonstrates mild degenerative changes at multiple levels. Lucent lesions in multiple bones of decreased in number and remaining are the same or smaller in size. Soft tissues: Unremarkable. IMPRESSION: 1. Perinephric fat stranding which could have multiple possible etiologies including scarring, 3rd spacing of fluid, inflammatory process and infection. 2. Minute lucent lesions in multiple bones have decreased in number and the remaining are the same or smaller in size. Mixed 3. Gallstone. 4. Minimal splenomegaly. 5. Several additional non emergent findings. Dictated and Authenticated by: Moises Guzman MD. Ordering:JOSE G Edward MD
[2023-07-28] MEDS: Lactated Ringers 250 ML IV (20:45)
[2023-07-28] MEDS: CEFEPIME 2 GM in Normal Saline 100 ML IVPB (21:15)
[2023-07-28] MEDS: VANCOMYCIN 1,000 MG in Normal Saline 250 ML 166.6666 MG IVPB (21:15)
--- NOTE | 2023-07-28 21:23 | W.PM.HP.N ---
Date of service: 07/28/23 Time of Service: : Assessment and Plan Assessment and plan (1) Sepsis: Start date: 07/28/23 Status: Acute Assessment and plan: This is a 68-year-old lady presenting with vomiting for 3 days and appearing septic by criteria with some concern for hypotension though she does have a cardiomyopathy associate with sarcoidosis, she was decided to accept in 2 L of fluid and blood pressure improved. She was placed in ICU because of initial hypotension and she will be observed overnight to ensure stability before being transferred to the medical floor. He is on broad-spectrum IV antibiotic therapy with cefepime and vancomycin after blood cultures and urine cultures were obtained. If she stabilizes and if there is a pathogen in guiding therapy, we could switch to oral therapy once patient stabilizes. She is a full code. Qualifiers: Acute renal failure type: unspecified Sepsis acute organ dysfunction status: with acute organ dysfunction Sepsis type: sepsis due to unspecified organism Severe sepsis acute organ dysfunction type: acute renal failure Severe sepsis shock status: with septic shock Qualified Code(s): A41.9 - Sepsis, unspecified organism; R65.21 - Severe sepsis with septic shock; N17.9 - Acute kidney failure, unspecified (2) Pneumonia: Start date: 07/28/23 Status: Acute Assessment and plan: Right pneumonia with hypoxemia which is new for the patient but minimal lung findings on exam. Monitor clinically adjusting antibiotic therapy accordingly. Qualifiers: Laterality: right Lung location: unspecified part of lung Pneumonia type: due to unspecified organism Qualified Code(s): J18.9 - Pneumonia, unspecified organism (3) Acute UTI: Start date: 07/28/23 Status: Acute Assessment and plan: Some stranding over both kidneys which could be scarring or early pyelonephritis with inflammation. Ultrasound kidneys will be obtained as available. Continue broad-spectrum antibiotic therapy. 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 Trend troponins and monitor clinically with telemetry. (5) ENA (acute kidney injury): Start date: 07/28/23 Status: Acute Assessment and plan: Acute worsening of patient's baseline CKD with fluid resuscitation done cautiously and follow-up labs. IV fluid resuscitation for now will be held. Patient will be given Zofran for nausea. (6) Cardiomyopathy: Status: Chronic Assessment and plan: Secondary to sarcoidosis according to patient and his recent evaluation shows slight decrease in left ventricular ejection fraction from 4% to 30%. His coronary arteries appear to be clear by history. She did have a slight increase in troponins and these will be trended. Patient asymptomatic. She has a history of paroxysmal atrial fibrillation and is on a controlled metoprolol as well as Eliquis for also will continue Entresto, furosemide and spironolactone if blood pressure allows with sepsis. 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 Monitor clinically. (8) Chronic kidney disease, stage 3: Assessment and plan: Exacerbated with symptoms and will be trended with labs. Qualifiers: Chronic kidney disease stage 3 subtype: stage 3b (GFR 30-44) Qualified Code(s): N18.32 - Chronic kidney disease, stage 3b (9) Atrial fibrillation: Assessment and plan: Proximal atrial fibrillation patient in regular rhythm presently. Continue metoprolol and Eliquis. Qualifiers: Atrial fibrillation type: paroxysmal Qualified Code(s): I48.0 - Paroxysmal atrial fibrillation (10) Essential hypertension: Assessment and plan: Hypotension with acute sepsis now improving. Resume outpatient medications as allowable. History of Present Illness History of Present Illness Chief Complaint: Nausea and vomiting for 3 days Narrative: This is a 68-year-old female patient who has a history of sarcoidosis followed by [facility] and also followed locally by pulmonology and cardiology. She has a history of cardiomyopathy with reduced left-ventricular ejection fraction and has been stable medical therapy with recent echocardiogram revealing decrease in her EF from 40% to 30% prompting cardiac catheterization and evaluation which revealed no significant CAD according to the patient. She also has a history of proximal atrial fibrillation on metoprolol as well as Eliquis. She presents after 3-day history of nausea and vomiting feeling weak but not fainting and able to keep multiple medications down despite not being drink or eat. She had no diarrhea. No abdominal pain. She does have fever. She denies any change in dyspnea with her sarcoidosis and she had no productive cough. When she was seen in the ED she did have a fever and her blood pressure was dropping but she was not tachycardic. She did have significant leukocytosis, increase in her baseline creatinine with CKD stage IIIb and lactic acidosis. She did receive at least 2 L of fluid with 1 L of normal saline and at least 250 cc of lactated Ringer's with the rest of the 750 cc and solutions with medication. We will hold on IV fluids resuscitation at this time and continue IV antibiotic therapy broad-spectrum with Rocephin and Zithromax given initially but changed to cefepime and vancomycin because of her findings on imaging palpable UTI with complications and bilateral stranding on CT as well as right infiltrate on chest imaging. She is immunocompromised and at risk for sepsis but at this time appears be stable. She is in ICU because of her low blood pressure and sepsis syndrome with concerns for need for vasopressors admission. Patient also is on oxygen which is not her baseline and if she progresses with dyspnea worsening from her baseline she may benefit from steroid not being chronically on steroids for cyanosis. If she remains stable she will be placed on medical floor. She is a full code. Review of Systems Narrative: 13 point review of systems negative for any weight gain or peripheral edema, otherwise as per HPI and unrevealing or stable. PFSH All Active Problems (Updated 07/28/23 @ 22:33 by Naveed Canada) Elevated troponin level not due myocardial infarction (Acute) ENA (acute kidney injury) (Acute) Pneumonia (Acute) Acute UTI (Acute) Sepsis (Acute) Sarcoidosis (Chronic) Glaucoma (Chronic) Bilateral cataracts (Acute) Dyspnea on exertion (Acute) Hyperparathyroidism due to renal insufficiency (Acute) Screening for colon cancer (Acute) Serrated adenoma of colon (Acute) Tubular adenoma of colon (Acute) Hyperplastic colon polyp (Acute) Hypertension (Acute 05/21/14) untreated Acute renal failure (Acute) Adnexal mass (Acute) 5 cm hypoechoic left ovarian lesion most likely benign process. CA 125 currently pending DVT prophylaxis (Acute) Cardiomyopathy (Chronic) Medical History Breast cancer screening H/O adenomatous polyp of colon High triglycerides Complaint of paresthesia Vitamin D deficiency Osteoporosis Ulnar neuropathy of right upper extremity Carpal tunnel syndrome on both sides Peripheral neuropathy Positive fecal immunochemical test 2020 Atrial fibrillation Chronic kidney disease, stage 3 f/u a@ [facility] [place] per pt. stated she was told she didn't have this dx Prediabetes Menopausal syndrome Discharge planning issues Lung nodule Lytic lesion of bone on x-ray Hypercalcemia Dilated cardiomyopathy Hyperlipidemia (05/15/13) Essential hypertension Surgical History Hx of colonoscopy S/P right oophorectomy Oophrectomy, Left Left ovary present at the time of pelvic ultrasound 12/24/2018 Diagnostic Laproscopy (~1980) During infertility evaluation when younger Appendectomy Family History Mother Dementia Father Prostate cancer Hypertension Hyperlipidemia Heart disease Social History Smoking/Tobacco Use Status: Never Smoking risk assessment performed?: Yes Alcohol Intake: never Drug use: Never Substance use type: does not use Housing: house Number of Children: 3 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 Do you feel safe at home: Yes Do you feel safe in your relationship?: Yes Additional Social history: live alone Meds Allergies and Home Medications Allergies Allergy/AdvReac Type Severity Reaction Status Date / Time feathers Allergy Intermediate Watery Verified 07/28/23 21:23 eyes, sneezing Dust Allergy Intermediate Watery Uncoded 07/28/23 21:23 eyes, sneezing, Environmental Allergy Intermediate Running Uncoded 07/28/23 21:23 nose, watery eyes, sneezing Home Medications Medication Instructions Recorded Confirmed Type ascorbic acid (vitamin C) 500 mg 500 mg PO DAILY 05/15/13 07/28/23 History tablet (Vitamin C) multivitamin-ferrous 1 tab-cap PO DAILY 05/15/13 07/28/23 History fumarate-folic acid 18 mg-400 mcg tablet (Multi Complete with Iron) vitamin E 268 mg (400 unit) capsule 400 unit PO DAILY ##1 05/15/13 07/28/23 History garlic 1 ea PO DAILY 05/21/14 07/28/23 History omega-3 fatty acids-fish oil 340 1 ea PO DAILY 06/10/15 07/28/23 History mg-1,000 mg capsule (Fish Oil) thiamine HCl (vitamin B1) 100 mg 100 mg PO DAILY 12/24/18 07/28/23 History tablet (Vitamin B-1) acetaminophen 325 mg tablet 325 - 650 mg (1 - 2 x 325 mg) PO 12/31/18 07/28/23 Rx (Tylenol) Q4H PRN PRN #0 tabs alendronate 70 mg tablet 70 mg PO QWEEK 02/21/19 07/28/23 History furosemide 20 mg tablet 20 mg PO DAILY 08/28/19 07/28/23 History sacubitril 49 mg-valsartan 51 mg 1 tab PO BID #180 tabs 11/25/20 07/28/23 Rx tablet (Entresto) cholecalciferol (vitamin D3) 50 50 mcg PO DAILY 01/17/21 07/28/23 History mcg (2,000 unit) capsule calcitriol 0.25 mcg capsule 0.25 mcg PO .3 x a week 02/21/22 07/28/23 History apixaban 5 mg tablet 5 mg PO BID #120 tabs 06/06/22 07/28/23 Rx timolol maleate 0.5 % eye drops 1 drp ophthalmic (eye) DAILY 01/11/23 07/28/23 History dapagliflozin propanediol 10 mg 10 mg PO DAILY 02/21/23 07/28/23 History tablet (Farxiga) spironolactone 25 mg tablet 25 mg PO DAILY 02/21/23 07/28/23 History metoprolol succinate 100 mg 200 mg PO HS 04/10/23 07/28/23 History tablet,extended release 24 hr Exam Narrative Exam Narrative: General: Patient appears older than stated age, moderately obese, slightly tachypneic at rest in bed with oxygen in place. She is alert and oriented x3 and in no acute distress. HEENT: Normocephalic, eyes with pupils equal and react light symmetrically, extraocular movement intact and sclera anicteric. Dry oral mucosa. Fair dentition. Neck: Supple without JVD. Back: Slightly stooped posture without CVA tenderness. Lungs: Fair aeration clear to auscultation With no focalizing rales or rhonchi. No expiratory wheeze. Breast: Exam deferred. Heart: Regular rate and rhythm with no people murmur or gallop. Abdomen: Obese contour, soft nontender to palpation with no palpable hepatosplenomegaly. Bowel sounds positive all quadrants. No guarding or rebound. Genitalia/rectal: Exam deferred. Extremities: Without clubbing, cyanosis or pitting edema. Good capillary refill. Skin: Slightly pale, warm and dry. Neuro: Cranial 2 through 12 gross intact, no focalizing motor deficits and no tremor. Psych: Normal affect and mood. No abnormal thought processes. Remote risk memory grossly intact. Results Imaging Imaging Studies: Exam: CT Chest Without Contrast; Diagnostic Exam date and time: 07/28/2023 6:34 PM Age: 68 years old Clinical indication: Fever and nausea and vomiting; Fever and shortness of breath TECHNIQUE: Imaging protocol: Diagnostic computed tomography of the chest without contrast. COMPARISON: CT CHEST/ABD/PEL WO 12/24/2018 11:24 AM FINDINGS: Lungs: Large area of dense parenchymal consolidation with air bronchograms in apical right lung. Smaller, similar appearing infiltrate inferomedially in right lower lobe. Stable 1.8 cm nodule in lingula. Central airways patent. Pleural spaces: Unremarkable. No pneumothorax. No pleural effusion. Heart: Heart normal in size Coronary arteries: Coronary artery calcification. Lymph nodes: No adenopathy. Vasculature: No aortic aneurysm. Bones/joints: The spine demonstrates mild degenerative changes at multiple levels. Minute lucent lesions in multiple bones have decreased in number since prior. Soft tissues: Unremarkable. IMPRESSION: 1. Multifocal pneumonia right lung. 2. Minute lucent skeletal lesions have decreased in number. 3. Several additional non emergent findings PROCEDURE INFORMATION: Exam: CT Abdomen And Pelvis Without Contrast Exam date and time: 07/28/2023 6:34 PM Age: 68 years old Clinical indication: Fever and nausea and vomiting; Fever and shortness of breath TECHNIQUE: Imaging protocol: Computed tomography of the abdomen and pelvis without contrast. COMPARISON: CT CHEST/ABD/PEL WO 12/24/2018 11:24 AM FINDINGS: Liver: There is diffuse decrease in hepatic parenchymal density, consistent with mild fatty infiltration. No mass. Gallbladder and bile ducts: Gallstone. No biliary ductal dilatation. Pancreas: Normal. No ductal dilation. Spleen: Minimal splenomegaly. Adrenal glands: Normal. No mass. Kidneys and ureters: No radiopaque renal or ureteric calculi. No hydronephrosis. There is now rlld-vw-ocqsajso stranding of perinephric fat bilaterally. 1.5 cm cyst is present in interpolar left kidney. Stomach and bowel: Cecal lipoma is unchanged in size, measuring approximately 5.5 cm. No dilated loops of small bowel or colonic dilatation. There are few colonic diverticula. Appendix: No evidence of appendicitis. Intraperitoneal space: Unremarkable. No free air. No significant fluid collection. Vasculature: Unremarkable. No abdominal aortic aneurysm. Lymph nodes: Unremarkable. No enlarged lymph nodes. Urinary bladder: Unremarkable as visualized. Reproductive: Anteverted uterus follicles or small cysts in left ovary have decreased in size. No radiopaque renal or ureteric calculi. No hydronephrosis. There is now slhk-md-nimrwdlt stranding of perinephric fat bilaterally. 1.5 cm cyst is present in interpolar left kidney. Bones/joints: The spine demonstrates mild degenerative changes at multiple levels. Lucent lesions in multiple bones of decreased in number and remaining are the same or smaller in size. Soft tissues: Unremarkable. IMPRESSION: 1. Perinephric fat stranding which could have multiple possible etiologies including scarring, 3rd spacing of fluid, inflammatory process and infection. 2. Minute lucent lesions in multiple bones have decreased in number and the remaining are the same or smaller in size. Mixed 3. Gallstone. 4. Minimal splenomegaly. 5. Several additional non emergent findings. Labs 07/28/23 17:30 07/28/23 17:30 Labs: Laboratory Results - last 24 hr 07/28/23 07/28/23 07/28/23 17:30 17:40 18:12 WBC 12.38 H RBC 4.70 Hgb 14.0 Hct 41.8 MCV 89 MCH 29.8 MCHC 33.5 RDW 13.8 Plt Count 197 MPV 11.7 H Immature Gran % 0.8 Neutrophils % 84.7 Lymphocytes % 4.9 Monocytes % 7.9 Eosinophils % 0.8 Basophils % 0.9 Nucleated RBC % 0.0 Absolute Neutrophils 10.49 H Absolute Lymphocytes 0.61 L Absolute Monocytes 0.98 H Absolute Eosinophils 0.10 Absolute Basophils 0.11 PT 11.2 H INR 1.1 APTT 41.9 H VBG pH 7.42 H VBG pCO2 33 L VBG pO2 30 VBG HCO3 21 L VBG Total CO2 20 L VBG O2 Saturation 56 VBG Base Excess -3 L VBG Lactate 2.2 H* Sodium 134 L Potassium 3.9 Chloride 99 Carbon Dioxide 22.9 Anion Gap 12.1 H BUN 52 H Creatinine 2.5 H Est GFR (CKD-EPI 2020) 20.31 Glucose 213 H Calcium 9.9 Magnesium 2.6 H Total Bilirubin 0.5 AST 30 ALT 20 Alkaline Phosphatase 113 Troponin I 85 H* Total Protein 9.2 H Albumin 2.4 L Lipase 68 Urine Color Urine Clarity Urine pH Ur Specific [place] Urine Protein Urine Ketones Urine Blood Urine Nitrite Urine Bilirubin Urine Urobilinogen Ur Leukocyte Esterase Urine RBC Urine WBC Ur Epithelial Cells Urine Crystals Urine Bacteria Urine Casts Urine Mucus Ur Culture Indicated? Urine Glucose COVID-19 Source Nasal/Nares SARS-CoV-2 (PCR) Negative 07/28/23 07/28/23 19:44 19:55 WBC RBC Hgb Hct MCV MCH MCHC RDW Plt Count MPV Immature Gran % Neutrophils % Lymphocytes % Monocytes % Eosinophils % Basophils % Nucleated RBC % Absolute Neutrophils Absolute Lymphocytes Absolute Monocytes Absolute Eosinophils Absolute Basophils PT INR APTT VBG pH VBG pCO2 VBG pO2 VBG HCO3 VBG Total CO2 VBG O2 Saturation VBG Base Excess VBG Lactate Sodium Potassium Chloride Carbon Dioxide Anion Gap BUN Creatinine Est GFR (CKD-EPI 2020) Glucose Calcium Magnesium Total Bilirubin AST ALT Alkaline Phosphatase Troponin I 93 H* Total Protein Albumin Lipase Urine Color Yellow Urine Clarity Cloudy Urine pH 5.5 Ur Specific [place] 1.015 Urine Protein 100 H Urine Ketones Negative Urine Blood Moderate H Urine Nitrite Negative Urine Bilirubin Negative Urine Urobilinogen 0.2 Ur Leukocyte Esterase Small H Urine RBC 5-10 H Urine WBC 10-20 H Ur Epithelial Cells Few Urine Crystals Negative Urine Bacteria Moderate Urine Casts 0-2 Hyaline Urine Mucus Trace Ur Culture Indicated? Yes Urine Glucose >=1000 H COVID-19 Source SARS-CoV-2 (PCR) Last Vital Signs Temp 39.4 C H 07/28/23 17:53 Pulse 84 07/28/23 20:16 Resp 20 07/28/23 20:20 BP 94/49 L 07/28/23 20:16 Pulse Ox 94 07/28/23 20:20 Time Spent Time spent with Patient: >75 minutes Time was spent: preparing to see the patient(eg.review tests), obtaining and/or reviewing separately otained hiistory, ordering medications,tests, procedures, referring, communicating with other health health care manager, indepentently interpreting results and care coordination
[2023-07-28 21:35] LABS: Lab Add On Test DONE
[2023-07-28 21:51] LABS: NT-proBNP 3971 pg/mL (<300)
--- NOTE | 2023-07-28 22:14 | W.PCEDHO ---
Registration Status: REG ER Primary Language: Preferred Language: Khmer ED Information & Data Chief Complaint Nausea/Vomit/Diar 07/28/23 17:53 Chief Complaint Nausea/Vomit/Diar 07/28/23 17:50 Triage Note Patient complaining of v/d, 07/28/23 17:09 fevers for 3 days Medical / Surgical History (Last Reviewed 07/28/23 @ 21:24 by Naveed Canada) Breast cancer screening H/O adenomatous polyp of colon High triglycerides Complaint of paresthesia Vitamin D deficiency Osteoporosis Ulnar neuropathy of right upper extremity Carpal tunnel syndrome on both sides Peripheral neuropathy Positive fecal immunochemical test Atrial fibrillation Chronic kidney disease, stage 3 Prediabetes Menopausal syndrome Discharge planning issues Lung nodule Lytic lesion of bone on x-ray Hypercalcemia Dilated cardiomyopathy Hyperlipidemia (05/15/13) Essential hypertension (Last Reviewed 07/28/23 @ 21:24 by Naveed Canada) Hx of colonoscopy S/P right oophorectomy Oophrectomy, Left Diagnostic Laproscopy (~1980) Appendectomy Most Recent Vital Signs Temperature 39.4 C H 07/28/23 17:53 Temperature Source Oral 07/28/23 17:53 Pulse 75 07/28/23 21:46 Pulse 81 07/28/23 22:00 Respiratory Rate 26 H 07/28/23 22:00 Respiratory Effort Short of Breath 07/28/23 17:53 Blood Pressure 101/58 L 07/28/23 21:46 Blood Pressure Mean 71 07/28/23 21:46 Blood Pressure Position Sitting 07/28/23 17:53 Pulse Oximetry 94 07/28/23 22:00 Oxygen Delivery Method Room Air 07/28/23 17:53 Oxygen Flow Rate 0 07/28/23 17:09 Pain Level 0 07/28/23 17:53 Allergies feathers Allergy (Intermediate, Verified 07/28/23 21:23) Watery eyes, sneezing Dust Allergy (Intermediate, Uncoded 07/28/23 21:23) Watery eyes, sneezing, Environmental Allergy (Intermediate, Uncoded 07/28/23 21:23) Running nose, watery eyes, sneezing Active Medications Generic Name Dose Route Start Last Admin Trade Name Freq PRN Reason Stop Dose Admin Vancomycin HCl 1,000 mg/ 250 mls @ 166.6666 mls/hr 07/28/23 20:47 07/28/23 21:15 Sodium Chloride IVPB 07/28/23 22:16 166.6666 mls/hr NOW ONE Administration IV IV Catheter Type [Right Saline Lock Antecubital] IV Catheter Type [Left Saline Lock Antecubital] IV Catheter Gauge [Right 18 Antecubital] IV Catheter Gauge [Left 18 Antecubital] Diet Orders Category Date Time Status Heart Healthy Eating [DIET] Nutrition 07/29/23 Breakfast Ordered Diagnostics 07/28/23 07/28/23 07/28/23 Range/Units 21:42 20:33 19:55 WBC (4.4-10.8) 10^3/uL RBC (3.93-5.22) 10^6/uL Hgb (11.2-15.7) g/dL Hct (36.0-46.0) % MCV (80-95) fL MCH (27.0-33.0) pg MCHC (32.0-36.0) % RDW (11.7-14.6) % Plt Count (130-400) 10^3/uL MPV (8.0-11.0) fL Immature Gran % Neutrophils % Lymphocytes % Monocytes % Eosinophils % Basophils % Nucleated RBC % (0.0-0.3) % Absolute Neutrophils (1.2-6.7) 10^3/uL Absolute Lymphocytes (1.2-3.4) 10^3/uL Absolute Monocytes (0.1-0.8) 10^3/uL Absolute Eosinophils (0.0-0.7) 10^3/uL Absolute Basophils (0.0-0.2) 10^3/uL PT (9.1-11.1) sec INR (0.9-1.1) APTT (23.6-32.8) sec VBG pH (7.31-7.41) VBG pCO2 (41-51) mmHg VBG pO2 mmHg VBG HCO3 (23-28) mmol/L VBG Total CO2 (24-29) mmol/L VBG O2 Saturation % VBG Base Excess (-2-3) mmol/L VBG Lactate (0.6-1.4) mmol/L Sodium (136-145) mmol/L Potassium (3.5-5.1) mmol/L Chloride (98-107) mmol/L Carbon Dioxide (21.0-32.0) mmol/L Anion Gap (3-11) mmol/L BUN (7-18) mg/dL Creatinine (0.55-1.02) mg/dL Est GFR (CKD-EPI 2020) (mL/min/1.73m2) Glucose (74-106) mg/dL Calcium (8.5-10.1) mg/dL Magnesium (1.8-2.4) mg/dL Total Bilirubin (0.2-1.0) mg/dL AST (15-37) U/L ALT (14-59) U/L Alkaline Phosphatase (46-116) U/L Troponin I Pending 93 H* (<or=60) ng/L NT-Pro-B Natriuret Pep 3971 H (<300) pg/mL Total Protein (6.4-8.2) g/dL Albumin (3.4-5.0) g/dL Lipase (16-77) U/L TSH Pending Urine Color (Yellow) Urine Clarity (Clear) Urine pH (5-8) Ur Specific [place] (1.005-1.025) Urine Protein (Negative) mg/dL Urine Ketones (Negative) mg/dL Urine Blood (Negative) Urine Nitrite (Negative) Urine Bilirubin (Negative) Urine Urobilinogen (Up to 0.2) mg/dL Ur Leukocyte Esterase (Negative) Urine RBC (0-2) HPF Urine WBC (0-5) HPF Ur Epithelial Cells (Negative) HPF Urine Crystals (Negative) HPF Urine Bacteria (Negative) HPF Urine Casts (Negative) LPF Urine Mucus (Negative) Ur Culture Indicated? Urine Glucose (Negative) mg/dL COVID-19 Source SARS-CoV-2 (PCR) (Negative) Add-On Test Request DONE 07/28/23 07/28/23 07/28/23 Range/Units 19:44 18:12 17:40 WBC (4.4-10.8) 10^3/uL RBC (3.93-5.22) 10^6/uL Hgb (11.2-15.7) g/dL Hct (36.0-46.0) % MCV (80-95) fL MCH (27.0-33.0) pg MCHC (32.0-36.0) % RDW (11.7-14.6) % Plt Count (130-400) 10^3/uL MPV (8.0-11.0) fL Immature Gran % Neutrophils % Lymphocytes % Monocytes % Eosinophils % Basophils % Nucleated RBC % (0.0-0.3) % Absolute Neutrophils (1.2-6.7) 10^3/uL Absolute Lymphocytes (1.2-3.4) 10^3/uL Absolute Monocytes (0.1-0.8) 10^3/uL Absolute Eosinophils (0.0-0.7) 10^3/uL Absolute Basophils (0.0-0.2) 10^3/uL PT (9.1-11.1) sec INR (0.9-1.1) APTT (23.6-32.8) sec VBG pH 7.42 H (7.31-7.41) VBG pCO2 33 L (41-51) mmHg VBG pO2 30 mmHg VBG HCO3 21 L (23-28) mmol/L VBG Total CO2 20 L (24-29) mmol/L VBG O2 Saturation 56 % VBG Base Excess -3 L (-2-3) mmol/L VBG Lactate (0.6-1.4) mmol/L Sodium (136-145) mmol/L Potassium (3.5-5.1) mmol/L Chloride (98-107) mmol/L Carbon Dioxide (21.0-32.0) mmol/L Anion Gap (3-11) mmol/L BUN (7-18) mg/dL Creatinine (0.55-1.02) mg/dL Est GFR (CKD-EPI 2020) (mL/min/1.73m2) Glucose (74-106) mg/dL Calcium (8.5-10.1) mg/dL Magnesium (1.8-2.4) mg/dL Total Bilirubin (0.2-1.0) mg/dL AST (15-37) U/L ALT (14-59) U/L Alkaline Phosphatase (46-116) U/L Troponin I (<or=60) ng/L NT-Pro-B Natriuret Pep (<300) pg/mL Total Protein (6.4-8.2) g/dL Albumin (3.4-5.0) g/dL Lipase (16-77) U/L TSH Urine Color Yellow (Yellow) Urine Clarity Cloudy (Clear) Urine pH 5.5 (5-8) Ur Specific [place] 1.015 (1.005-1.025) Urine Protein 100 H (Negative) mg/dL Urine Ketones Negative (Negative) mg/dL Urine Blood Moderate H (Negative) Urine Nitrite Negative (Negative) Urine Bilirubin Negative (Negative) Urine Urobilinogen 0.2 (Up to 0.2) mg/dL Ur Leukocyte Esterase Small H (Negative) Urine RBC 5-10 H (0-2) HPF Urine WBC 10-20 H (0-5) HPF Ur Epithelial Cells Few (Negative) HPF Urine Crystals Negative (Negative) HPF Urine Bacteria Moderate (Negative) HPF Urine Casts 0-2 Hyaline (Negative) LPF Urine Mucus Trace (Negative) Ur Culture Indicated? Yes Urine Glucose >=1000 H (Negative) mg/dL COVID-19 Source Nasal/Nares SARS-CoV-2 (PCR) Negative (Negative) Add-On Test Request 07/28/23 Range/Units 17:30 WBC 12.38 H (4.4-10.8) 10^3/uL RBC 4.70 (3.93-5.22) 10^6/uL Hgb 14.0 (11.2-15.7) g/dL Hct 41.8 (36.0-46.0) % MCV 89 (80-95) fL MCH 29.8 (27.0-33.0) pg MCHC 33.5 (32.0-36.0) % RDW 13.8 (11.7-14.6) % Plt Count 197 (130-400) 10^3/uL MPV 11.7 H (8.0-11.0) fL Immature Gran % 0.8 Neutrophils % 84.7 Lymphocytes % 4.9 Monocytes % 7.9 Eosinophils % 0.8 Basophils % 0.9 Nucleated RBC % 0.0 (0.0-0.3) % Absolute Neutrophils 10.49 H (1.2-6.7) 10^3/uL Absolute Lymphocytes 0.61 L (1.2-3.4) 10^3/uL Absolute Monocytes 0.98 H (0.1-0.8) 10^3/uL Absolute Eosinophils 0.10 (0.0-0.7) 10^3/uL Absolute Basophils 0.11 (0.0-0.2) 10^3/uL PT 11.2 H (9.1-11.1) sec INR 1.1 (0.9-1.1) APTT 41.9 H (23.6-32.8) sec VBG pH (7.31-7.41) VBG pCO2 (41-51) mmHg VBG pO2 mmHg VBG HCO3 (23-28) mmol/L VBG Total CO2 (24-29) mmol/L VBG O2 Saturation % VBG Base Excess (-2-3) mmol/L VBG Lactate 2.2 H* (0.6-1.4) mmol/L Sodium 134 L (136-145) mmol/L Potassium 3.9 (3.5-5.1) mmol/L Chloride 99 (98-107) mmol/L Carbon Dioxide 22.9 (21.0-32.0) mmol/L Anion Gap 12.1 H (3-11) mmol/L BUN 52 H (7-18) mg/dL Creatinine 2.5 H (0.55-1.02) mg/dL Est GFR (CKD-EPI 2020) 20.31 (mL/min/1.73m2) Glucose 213 H (74-106) mg/dL Calcium 9.9 (8.5-10.1) mg/dL Magnesium 2.6 H (1.8-2.4) mg/dL Total Bilirubin 0.5 (0.2-1.0) mg/dL AST 30 (15-37) U/L ALT 20 (14-59) U/L Alkaline Phosphatase 113 (46-116) U/L Troponin I 85 H* (<or=60) ng/L NT-Pro-B Natriuret Pep (<300) pg/mL Total Protein 9.2 H (6.4-8.2) g/dL Albumin 2.4 L (3.4-5.0) g/dL Lipase 68 (16-77) U/L TSH Urine Color (Yellow) Urine Clarity (Clear) Urine pH (5-8) Ur Specific [place] (1.005-1.025) Urine Protein (Negative) mg/dL Urine Ketones (Negative) mg/dL Urine Blood (Negative) Urine Nitrite (Negative) Urine Bilirubin (Negative) Urine Urobilinogen (Up to 0.2) mg/dL Ur Leukocyte Esterase (Negative) Urine RBC (0-2) HPF Urine WBC (0-5) HPF Ur Epithelial Cells (Negative) HPF Urine Crystals (Negative) HPF Urine Bacteria (Negative) HPF Urine Casts (Negative) LPF Urine Mucus (Negative) Ur Culture Indicated? Urine Glucose (Negative) mg/dL COVID-19 Source SARS-CoV-2 (PCR) (Negative) Add-On Test Request 07/28/23 19:44 Urine Culture - Pending Urine - Reflex from Ua 07/28/23 17:45 Blood Culture - Pending Blood 07/28/23 17:30 Blood Culture - Pending Blood Intake and Output - 24 Hour Total 07/28/23 17:03 thru 07/28/23 20:30 Intake Total 1400 Balance 1400 Intake: IV 1400 Other: Stool Size Small Stool Characteristics Liquid Emesis Description Undigested Food Falls Risk Assessment History of Falls No History 07/28/23 17:53 Contributing Factors No Factors 07/28/23 17:53 Ambulatory Aids Independent 07/28/23 17:53 Tubes/Lines None 07/28/23 17:53 Gait Evaluation No gait disturbance 07/28/23 17:53 Cognition No cognitive impairment 07/28/23 17:53 Fall Total Score 0 07/28/23 17:53 Level of Risk Standard/Low Risk 07/28/23 17:53 Problems (Last Reviewed 07/28/23 @ 21:24 by Naveed Canada) ENA (acute kidney injury) (Acute) Pneumonia (Acute) Acute UTI (Acute) Sepsis (Acute) Sarcoidosis (Acute) Cardiomyopathy (Acute) v v v v v v v v v Sending and/or Receiving Nurses: Please use comment section below to note any information pertinent to the patient hand-off not included above. Information / Comments: Report received from: [facility]
[2023-07-29] VITALS (59 sets, daily range): BP systolic 104–132; BP diastolic 51–95; PULSE 70–92; RESP 15–30; TEMP 36.3–39; O2SAT 87–98
[2023-07-29 00:42] LABS: Lactate 1.3 mmol/L (0.6-1.4)
[2023-07-29] MEDS: Apixaban 5 MG TAB PO ×2 (00:43→19:14)
[2023-07-29] MEDS: Latanoprost 0.005% 2.5 ML BTL OU ×2 (00:43→21:25)
[2023-07-29] MEDS: Metoprolol 25 MG TAB PO ×4 (00:43→17:45)
[2023-07-29] MEDS: Normal Saline Flush 10 ML SYR IVP ×2 (00:44→20:13)
[2023-07-29] MEDS: VANCOMYCIN 1,000 MG in Normal Saline 250 ML 166.667 MG IVPB (00:46)
[2023-07-29 00:53] LABS: Anion Gap 10.2 mmol/L (3-11); BUN 52 mg/dL (7-18); CO2 22.8 mmol/L (21.0-32.0); CREATININE 2.5 mg/dL (0.55-1.02); Chloride 104 mmol/L (98-107); Estimated GFR 20.31 (mL/min/1.73m2); Glucose 193 mg/dL (74-106); Potassium 3.8 mmol/L (3.5-5.1); Sodium 137 mmol/L (136-145)
[2023-07-29 01:08] LABS: TSH 0.79 uIU/mL (0.36-3.74)
[2023-07-29 01:09] LABS: Troponin I 74 ng/L (<or=60)
[2023-07-29] MEDS: Acetaminophen 325 MG TAB PO ×2 (03:13→17:43)
[2023-07-29 05:44] LABS: HCT 34.3 % (36.0-46.0); HGB 11.4 g/dL (11.2-15.7); MCH 29.8 pg (27.0-33.0); MCHC 33.2 % (32.0-36.0); MCV 90 fL (80-95); MPV 12.1 fL (8.0-11.0); Platelet Count 146 10^3/uL (130-400); RBC 3.82 10^6/uL (3.93-5.22); RDW-SD 45.6 fL; WBC 8.27 10^3/uL (4.4-10.8)
[2023-07-29 06:05] LABS: ALT 19 U/L (14-59); AST 24 U/L (15-37); Albumin 1.8 g/dL (3.4-5.0); Alkaline Phosphatase 95 U/L (46-116); Anion Gap 12.2 mmol/L (3-11); BUN 47 mg/dL (7-18); Bilirubin, Total 0.3 mg/dL (0.2-1.0); CO2 20.8 mmol/L (21.0-32.0); CREATININE 2.1 mg/dL (0.55-1.02); Calcium 8.7 mg/dL (8.5-10.1); Chloride 104 mmol/L (98-107); Estimated GFR 25.04 (mL/min/1.73m2); Glucose 222 mg/dL (74-106); Potassium 3.6 mmol/L (3.5-5.1); Sodium 137 mmol/L (136-145); Total Protein 7.1 g/dL (6.4-8.2)
[2023-07-29 06:11] LABS: Troponin I 71 ng/L (<or=60)
[2023-07-29 08:16] LABS: Lab Add On Test DONE
[2023-07-29] MEDS: Multivitamin w/Minerals TAB 1 TAB PO (08:28)
[2023-07-29] MEDS: Thiamine 100 MG TAB PO (08:28)
[2023-07-29] MEDS: CEFEPIME 2 GM in Normal Saline 100 ML IVPB ×2 (08:28→20:14)
[2023-07-29] MEDS: Cholecalciferol (Vitamin D3) 1,000 UNIT TAB 2000 UNITS PO (08:28)
[2023-07-29] MEDS: Vitamin E 400 UNITS CAP PO (08:28)
[2023-07-29] MEDS: Ascorbic Acid 500 MG TAB PO (08:29)
[2023-07-29] MEDS: Timolol 0.5% 5 ML BTL OU (08:29)
[2023-07-29] MEDS: Normal Saline 500 ML IV (08:30)
[2023-07-29 08:51] LABS: Procalcitonin 4.9 ng/mL
--- NOTE | 2023-07-29 09:05 | PGE_ITS ---
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 She was found to have right sided pneumonia and possible UTI. CT imaging of her abdomen suggested bilateral perinephric stranding and left renal cyst but no abscess. She has no flank pain to suggest pyelonephritis. She remains on Vancomycin and Cefepime for her pneumonia. I will add doxycycline, check MRSA screen and if negative then dc her vancomycin. She is hemodynamically and pulmonary stable for transfer to med/surg. Critical care time spent interviewing and examining the patient, reviewing studies, discussing case with patient's nurse and consulting physicians was 30 minutes Qualifiers: Sepsis type: sepsis due to unspecified organism Sepsis acute organ dysfunction status: with acute organ dysfunction Severe sepsis acute organ dysfunction type: acute renal failure Acute renal failure type: unspecified Severe sepsis shock status: with septic shock Qualified Code(s): A41.9 - Sepsis, unspecified organism; R65.21 - Severe sepsis with septic shock; N17.9 - Acute kidney failure, unspecified (2) Pneumonia: Start date: 07/28/23 Status: Acute Assessment and plan: Right pneumonia with hypoxemia which is new for the patient but minimal lung findings on exam. Check urine Legionella antigen and strep antigen as well as sputum cultures from Gram stain and culture as well as sputum for mycoplasma PCR. Add doxycycline to his regimen today as a worsening screen was negative we will discontinue vancomycin otherwise continue cefepime. Qualifiers: Pneumonia type: due to unspecified organism Laterality: right Lung location: unspecified part of lung Qualified Code(s): J18.9 - Pneumonia, unspecified organism (3) Acute UTI: Start date: 07/28/23 Status: Acute Assessment and plan: I doubt that the perinephric strandingis d/t pyelonephritis as this is bilateral and probably due to scarring chronic kidney disease. continue cefepime and adjust antibiotics based on blood, urine cultures. (4) Elevated troponin level not due myocardial infarction: Start date: 07/28/23 Status: Acute Assessment and plan: Patient does have sarcoidosis with cardiomyopathy and that this and mild jonatan vation in troponin probably is secondary to stress of her acute presentation. Trend troponins and monitor clinically with telemetry. Check echocardiogram to evaluate her LV function. Last echo was done 01/24/23 and showed a decline in her LVEF to 30% w/ global HK, mild to mod. MR, no AI or , and normal RV size and function. This was a decline from her prior LVEFT of 43% and no significant valvular pathology from 05/26/20. I have held her Entresto and her diuretics this moring d/t her renal dysfunction and hypotension yesterday. I will allow her volume status to equilibrate w/ oral hydration and resume her HF meds tomorrow. (5) ENA (acute kidney injury): Start date: 07/28/23 Status: Acute Assessment and plan: Acute worsening of patient's baseline CKD with fluid resuscitation done cautiously and follow-up labs. I will hold further iv fluids and allow her to drink freely. If she is nauseated or has further vomiting then she will need further iv fluids. However, if she needs further iv fluids it would probably be a good idea to get bedside POCUS to assess her RAP via IVC measurements and if able to get dopper of her mitral inflow, estimate her filling pressures via E/e' ration, can also look at pulmonary vein inflow and hepatic vein flow pattern to estimate RA filling. However, clinically she does not appear to be hypervolemic i.e. no pitting pedal edema, no ascites, no presacral edema and in setting of 3 to 4 day s of nausea and vomiting, she is probably under volume ressuscitated. (6) Cardiomyopathy: Status: Chronic Assessment and plan: as noted above. repeat echocardiogram. hold Entresto and diuretics today, resume tomorrow. 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 Monitor clinically. (8) Chronic kidney disease, stage 3: Assessment and plan: Exacerbated with symptoms and will be trended with labs. Qualifiers: Chronic kidney disease stage 3 subtype: stage 3b (GFR 30-44) Qualified Code(s): N18.32 - Chronic kidney disease, stage 3b (9) Atrial fibrillation: Assessment and plan: Hx paroxysmal atrial fibrillation patient in regular rhythm presently. Continue metoprolol and Eliquis. Qualifiers: Atrial fibrillation type: paroxysmal Qualified Code(s): I48.0 - Paroxysmal atrial fibrillation (10) Essential hypertension: Assessment and plan: Hypotension with acute sepsis now improving. Resume outpatient medications as allowable. Subjective Subjective Interval history since last seen: Patient denies any shortness of breath or chest pain. She is feeling better this morning. No nausea or vomiting which she had first developed 4 days ago with increasing shortness of breath chills. She has been weaned off of oxygen, 94 on room air. Blood pressures been stable overnight. She has not required any vasopressors and is currently not receiving any IV fluids. I encouraged her to drink fluids and rehydrate her kidneys. They are holding her Entresto and diuretics. I told her that if she continues to improve stable overnight we can discharge her home tomorrow on oral antibiotics. Medical/surgical floor today. Exam Narrative Exam Narrative: Pleasant white female sitting up in chair talking with nursing. No acute distress. She is not tachypneic she is able to walk and complete sentences. Lungs are clear anteriorly posteriorly she has some basilar rales right side no wheezes Heart is regular rate and rhythm Abdomen obese soft nontender Extremities without cyanosis or edema Objective Last Vital Signs Temp 37.6 C H 07/29/23 05:38 Pulse 76 07/29/23 08:01 Resp 19 07/29/23 08:01 BP 117/70 07/29/23 08:01 Pulse Ox 97 07/29/23 08:01 Laboratory Results - last 24 hr 07/28/23 07/28/23 07/28/23 17:30 17:40 18:12 WBC 12.38 H RBC 4.70 Hgb 14.0 Hct 41.8 MCV 89 MCH 29.8 MCHC 33.5 RDW 13.8 Plt Count 197 MPV 11.7 H Immature Gran % 0.8 Neutrophils % 84.7 Lymphocytes % 4.9 Monocytes % 7.9 Eosinophils % 0.8 Basophils % 0.9 Nucleated RBC % 0.0 Absolute Neutrophils 10.49 H Absolute Lymphocytes 0.61 L Absolute Monocytes 0.98 H Absolute Eosinophils 0.10 Absolute Basophils 0.11 PT 11.2 H INR 1.1 APTT 41.9 H VBG pH 7.42 H VBG pCO2 33 L VBG pO2 30 VBG HCO3 21 L VBG Total CO2 20 L VBG O2 Saturation 56 VBG Base Excess -3 L VBG Lactate 2.2 H* Sodium 134 L Potassium 3.9 Chloride 99 Carbon Dioxide 22.9 Anion Gap 12.1 H BUN 52 H Creatinine 2.5 H Est GFR (CKD-EPI 2020) 20.31 Glucose 213 H Calcium 9.9 Magnesium 2.6 H Total Bilirubin 0.5 AST 30 ALT 20 Alkaline Phosphatase 113 Troponin I 85 H* NT-Pro-B Natriuret Pep Total Protein 9.2 H Albumin 2.4 L Lipase 68 Procalcitonin TSH Urine Color Urine Clarity Urine pH Ur Specific [place] Urine Protein Urine Ketones Urine Blood Urine Nitrite Urine Bilirubin Urine Urobilinogen Ur Leukocyte Esterase Urine RBC Urine WBC Ur Epithelial Cells Urine Crystals Urine Bacteria Urine Casts Urine Mucus Ur Culture Indicated? Urine Glucose COVID-19 Source Nasal/Nares SARS-CoV-2 (PCR) Negative Add-On Test Request 07/28/23 07/28/23 07/28/23 19:44 19:55 20:33 WBC RBC Hgb Hct MCV MCH MCHC RDW Plt Count MPV Immature Gran % Neutrophils % Lymphocytes % Monocytes % Eosinophils % Basophils % Nucleated RBC % Absolute Neutrophils Absolute Lymphocytes Absolute Monocytes Absolute Eosinophils Absolute Basophils PT INR APTT VBG pH VBG pCO2 VBG pO2 VBG HCO3 VBG Total CO2 VBG O2 Saturation VBG Base Excess VBG Lactate Sodium Potassium Chloride Carbon Dioxide Anion Gap BUN Creatinine Est GFR (CKD-EPI 2020) Glucose Calcium Magnesium Total Bilirubin AST ALT Alkaline Phosphatase Troponin I 93 H* NT-Pro-B Natriuret Pep 3971 H Total Protein Albumin Lipase Procalcitonin TSH Urine Color Yellow Urine Clarity Cloudy Urine pH 5.5 Ur Specific [place] 1.015 Urine Protein 100 H Urine Ketones Negative Urine Blood Moderate H Urine Nitrite Negative Urine Bilirubin Negative Urine Urobilinogen 0.2 Ur Leukocyte Esterase Small H Urine RBC 5-10 H Urine WBC 10-20 H Ur Epithelial Cells Few Urine Crystals Negative Urine Bacteria Moderate Urine Casts 0-2 Hyaline Urine Mucus Trace Ur Culture Indicated? Yes Urine Glucose >=1000 H COVID-19 Source SARS-CoV-2 (PCR) Add-On Test Request DONE 07/29/23 07/29/23 00:35 05:30 WBC 8.27 RBC 3.82 L Hgb 11.4 D Hct 34.3 L MCV 90 MCH 29.8 MCHC 33.2 RDW 14.0 Plt Count 146 MPV 12.1 H Immature Gran % Neutrophils % Lymphocytes % Monocytes % Eosinophils % Basophils % Nucleated RBC % Absolute Neutrophils Absolute Lymphocytes Absolute Monocytes Absolute Eosinophils Absolute Basophils PT INR APTT VBG pH VBG pCO2 VBG pO2 VBG HCO3 VBG Total CO2 VBG O2 Saturation VBG Base Excess VBG Lactate 1.3 Sodium 137 137 Potassium 3.8 3.6 Chloride 104 104 Carbon Dioxide 22.8 20.8 L Anion Gap 10.2 12.2 H BUN 52 H 47 H Creatinine 2.5 H 2.1 H Est GFR (CKD-EPI 2020) 20.31 25.04 Glucose 193 H 222 H Calcium 9.0 8.7 Magnesium Total Bilirubin 0.3 AST 24 ALT 19 Alkaline Phosphatase 95 Troponin I 74 H* 71 H* NT-Pro-B Natriuret Pep Total Protein 7.1 Albumin 1.8 L Lipase Procalcitonin 4.9 TSH 0.79 Urine Color Urine Clarity Urine pH Ur Specific [place] Urine Protein Urine Ketones Urine Blood Urine Nitrite Urine Bilirubin Urine Urobilinogen Ur Leukocyte Esterase Urine RBC Urine WBC Ur Epithelial Cells Urine Crystals Urine Bacteria Urine Casts Urine Mucus Ur Culture Indicated? Urine Glucose COVID-19 Source SARS-CoV-2 (PCR) Add-On Test Request DONE Time Spent with Patient Time Spent with Patient: 25-34 minutes Time was spent: preparing to see the patient(eg.review tests), ordering medications,tests, procedures, referring, communicating with other health career resource technician (Dr. Canada), indepentently interpreting results, counseling the patient and care coordination
[2023-07-29] MEDS: Doxycycline Hyclate 100 MG CAP PO ×2 (13:03→21:25)
--- NOTE | 2023-07-29 17:02 | INITIAL_ITS ---
Date of service: 07/29/23 Time of Service: 17:02 Care Management Initial Assmt Initial Assessment REASON FOR HOSPITALIZATION:: Sepsis with shock, right pneumonia, UTI PREVIOUS FUNCTIONAL STATUS/SOCIAL/FAMILY SUPPORTS:: Resides independently in [place]. Friends locally, adult children reside out of state. CURRENT FUNCTIONAL STATUS:: Jen is getting up to the commode independently, she remains weaker than baseline. ADVANCE DIRECTIVES:: None on file. Has patient been provided with info about the portal/API?: No Did the patient sign up for the portal?: No CODE STATUS:: Full Code INSURANCE COVERAGE / FINANCIAL ISSUES:: [place] [employer] CURRENT HOME/COMMUNITY SERVICES/EQUIPMENT:: History of sarcoidosis followed by [facility] and also followed locally by pulmonology and cardiology. PRIMARY CARE PHYSICIAN:: Sammie Cordero POTENTIAL DISCHARGE NEEDS:: Follow up appointments. PATIENT/FAMILY EDUCATION NEEDS:: Review discharge instructions, discuss Ask Me Three. ANTICIPATED BARRIERS TO DISCHARGE:: None identified. TRANSPORTATION:: Via private vehicle with family. PLAN:: Jen will return home when ready per MD. No additional services anticipated at this time. CM continues to follow. PFSH All Active Problems (Updated 07/28/23 @ 22:33 by Naveed Canada) Elevated troponin level not due myocardial infarction (Acute) ENA (acute kidney injury) (Acute) Pneumonia (Acute) Acute UTI (Acute) Sepsis (Acute) Sarcoidosis (Chronic) Glaucoma (Chronic) Bilateral cataracts (Acute) Dyspnea on exertion (Acute) Hyperparathyroidism due to renal insufficiency (Acute) Screening for colon cancer (Acute) Serrated adenoma of colon (Acute) Tubular adenoma of colon (Acute) Hyperplastic colon polyp (Acute) Hypertension (Acute 05/21/14) untreated Acute renal failure (Acute) Adnexal mass (Acute) 5 cm hypoechoic left ovarian lesion most likely benign process. CA 125 currently pending DVT prophylaxis (Acute) Cardiomyopathy (Chronic) Medical History Breast cancer screening H/O adenomatous polyp of colon High triglycerides Complaint of paresthesia Vitamin D deficiency Osteoporosis Ulnar neuropathy of right upper extremity Carpal tunnel syndrome on both sides Peripheral neuropathy Positive fecal immunochemical test 2020 Atrial fibrillation Chronic kidney disease, stage 3 f/u a@ [facility] per pt. stated she was told she didn't have this dx Prediabetes Menopausal syndrome Discharge planning issues Lung nodule Lytic lesion of bone on x-ray Hypercalcemia Dilated cardiomyopathy Hyperlipidemia (05/15/13) Essential hypertension Surgical History Hx of colonoscopy S/P right oophorectomy Oophrectomy, Left Left ovary present at the time of pelvic ultrasound 12/24/2018 Diagnostic Laproscopy (~1980) During infertility evaluation when younger Appendectomy Family History Mother Dementia Father Prostate cancer Hypertension Hyperlipidemia Heart disease Social History Smoking/Tobacco Use Status: Never Smoking risk assessment performed?: Yes Alcohol Intake: never Drug use: Never Substance use type: does not use Housing: house Number of Children: 3 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 Do you feel safe at home: Yes Do you feel safe in your relationship?: Yes Additional Social history: live alone
[2023-07-29 17:47] LABS: MRSA PCR Negative (Negative)
[2023-07-29] MEDS: Ondansetron O.D.T. 4 MG TABEF PO (19:14)
[2023-07-30] VITALS (29 sets, daily range): BP systolic 96–153; BP diastolic 54–89; PULSE 53–91; RESP 13–31; TEMP 36.6–37.4; O2SAT 92–100
[2023-07-30] MEDS: Metoprolol 25 MG TAB PO ×3 (00:10→12:00)
[2023-07-30 01:26] LABS: C Diff PCR Negative (Negative)
[2023-07-30 06:33] LABS: Abs Immature Grans 0.07 10^3/uL (0.0-0.06); Absolute Basophil Count 0.09 10^3/uL (0.0-0.2); Absolute Eosinophil Count 0.05 10^3/uL (0.0-0.7); Absolute Lymphocyte Count 0.68 10^3/uL (1.2-3.4); Absolute Monocyte Count 0.71 10^3/uL (0.1-0.8); Absolute Neutrophil Count 6.21 10^3/uL (1.2-6.7); Basophils % 1.2; Eosinophils % 0.6; HCT 38.7 % (36.0-46.0); HGB 12.6 g/dL (11.2-15.7); Immature Grans % 0.9; Lymphocytes % 8.7; MCH 29.4 pg (27.0-33.0); MCHC 32.6 % (32.0-36.0); MCV 90 fL (80-95); MPV 12.2 fL (8.0-11.0); Monocytes % 9.1; Neutrophils % 79.5; Platelet Count 177 10^3/uL (130-400); RBC 4.29 10^6/uL (3.93-5.22); RDW 13.9 % (11.7-14.6); RDW-SD 45.7 fL; WBC 7.81 10^3/uL (4.4-10.8)
[2023-07-30 06:55] LABS: Anion Gap 14.2 mmol/L (3-11); BUN 39 mg/dL (7-18); CO2 19.8 mmol/L (21.0-32.0); CREATININE 1.7 mg/dL (0.55-1.02); Calcium 9.7 mg/dL (8.5-10.1); Chloride 111 mmol/L (98-107); Estimated GFR 32.26 (mL/min/1.73m2); Glucose 206 mg/dL (74-106); Potassium 4.4 mmol/L (3.5-5.1); Sodium 145 mmol/L (136-145); Troponin I < 50 ng/L (<or=60)
--- NOTE | 2023-07-30 08:00 | DI.US_ITS ---
APPROVED REPORT EXAM: Comprehensive 2D, Doppler, and color-flow Echocardiogram Patient Location: In-Patient Room/Bed: 222 Hand I Blocker: Rajani Salas RDCS (AE) Indications: Elevated troponin, H/O Nonischemic Cardiomyopathy Other Information Study Quality: Adequate Conclusion Mildly dilated left ventricle. Normal left ventricular wall thickness. Ejection fraction is 40%. T here is global hypokinesis Normal right ventricular size and systolic function Left atrium is mildly dilated. Right atrial size is normal Aortic valve is trileaflet and mildly sclerotic with trace regurgitation Mild mitral annular calcification, mild mitral regurgitation Normal tricuspid valve with trace regurgitation. Estimated right ventricular systolic pressure is 14 mmHg Wall motion Left Ventricle Left ventricle is mildly dilated. Left ventricular systolic function is moderately decreased. There i s normal left ventricular wall thickness. There is global hypokinesis of the left ventricle. There is no ventricular septal defect visualized. LVEF is 40%. Right Ventricle The right ventricle is normal size. The right ventricular systolic function is normal. Atria Left atrium is mildly dilated. The right atrium size is normal. The interatrial septum is intact with no evidence for an atrial septal defect. Aortic Valve The Aortic valve is mildly sclerotic. Aortic valve is trileaflet. There is no aortic valvular stenosi s. Trivial aortic regurgitation. Mitral Valve Mild mitral annular calcification. No evidence of mitral valve stenosis. Mild mitral regurgitation. Tricuspid Valve The tricuspid valve is normal in structure. There is no tricuspid valve stenosis. Trace tricuspid reg urgitation. The RVSP is 13.8 mmHg. Pulmonic Valve The pulmonary valve is normal in structure. There is no pulmonic valvular stenosis. Trace pulmonic re gurgitation. Great Vessels The aortic root is normal in size. The ascending aorta is normal in size. Aortic arch is normal in ca liber. IVC is normal in size and collapses >50% with inspiration. Pericardium There is no pericardial effusion. 2D Dimensions IVSD d PLAX 0.70 cm F: 0.6-1.0 Ao Root d 3.01 cm F: 2.7 - 3.3 LVPW d PLAX 0.69 cm F: 0.6 - 1.0 Ao Asc Diam d 2.93 cm F: 2.3 - 3.1 LVID d PLAX 6.39 cm F: 3.8 - 5.2 LVDs 5.14 cm F: 2.2 - 3.5 LV EF Teichholz 39.5 % FS 19.67 % LV EDV (Teich) 208.1 mL LV ESV (Teich) 125.9 mL M-Mode TAPSE 2.43 cm (M/F) >1.7 Auto EF LV EDV A4C 188.9 mL LV EDV A2C 211.2 mL LV EDV BP 199.8 mL LV ESV A4C 109.9 mL LV ESV A2C 131.2 mL LV ESV BP 119.6 mL LVEF(%) A4C 41.8 % LVEF(%) A2C 37.9 % LVEF(%) BP 40.1 % LV SV A4C 79.0 ml LV SV A2C 80.0 ml LV SV BP 80.2 ml LV CO A4C 5.8 L/min LV CO A2C 5.9 L/min LV CO BP 5.8 L/min HR A4C 73.32 BPM HR A2C 73.47 BPM LV EDV Index (BP) LV Strain Long Pk Overal Avg (s) 10.30 RV Strain Global Peak Long. Strain A4C 18.33 Global Peak Long. Strain A4C FW 24.49 LA Volume LA Length A4C 5.4 cm LA Length A2C 5.3 cm LA Area A4C s 23.97 cm2 LA Area A2C s 16.06 cm2 LA Vol A4C A-L 91.01 mL LA Vol A2C A-L 41.08 mL LA Vol Biplane A-L 61.3 mL LA Vol/BSA A4C A-L LA Vol/BSA A2C A-L LA Vol/BSA BP A-L 29.8 mL/m2 LA Vol A4C MOD 85.9 mL LA Vol A2C MOD 39.1 mL LA Vol BP MOD 57.9 mL RA Volume RA Area A4C 13.7 cm2 RA ESV A4C (A-L) 31.9mL RA Vol/BSA A4C A-L RA Length A4C 5.0 cm RA ESV A4C (MOD) 30.3mL LV Diastology MV E' medial 0.037 (>0.07 m/s) MV E Vmax 0.89 (0.4-1.3 m/s) MV E/E' MED 24.35 (<14) MV A Vmax 1.05 (0.4-1.3 m/s) MV E' lateral 0.077 (>0.1 m/s) E/A Ratio 0.8 MV E/E' LAT 11.60 (<14) MV E' Average 0.057 m/s MV E/E'(average) 15.71 Aortic Valve AoV Vmax 1.59 m/s LVOT Vmax 1.08 m/s AoV Peak Grad 10.1 mmHg LVOT Peak Grad 4.7 mmHg AoV Area (Vmax) 2.14 cm2 LVOT VTI 0.203 m AoV VTI 0.331 m LVOT Mean Grad 2.7 mmHg AoV Mean Sandro. 1.13 m/s LVOT SV 63.49 mL AoV Mean Grad 5.8 mmHg LVOT Diam s 1.95 cm AoV Area (VTI) 1.92 cm2 Velocity Ratio 0.68 Mitral Valve MV DT 187 (160-240 msec) MV Vmax TIPS 0.98 m/s MV Mean Grad 1.7 (<2mmHg) MV VTI 0.307 m Pulmonary Valve PV Vmax 1.11 (0.5-1.5 m/s) RVOT Vmax 0.72 m/s PV Peak Grad 5.0 mmHg RVOT Peak Gr. 2.1 mmHg PV Mean Sandro 0.83 m/s RVOT VTI 0.152 m PV Mean Grad 3.0 mmHg RVOT Mean Gr. 1.2 mmHg Tricuspid Valve RA Pressure 3.00 mmHg TR Vmax 1.65 m/s TV S' 0.17 m/s TR Peak Grad 10.8 mmHg RVSP (TR) 13.8 mmHg
--- NOTE | 2023-07-30 08:00 | DI.US_ITS ---
Exam(s) US RENAL EXAM: US RENAL CLINICAL HISTORY: Sepsis with UTI and possible bilateral pyeloneph. TECHNIQUE: Cutler scale, color and spectral Doppler were used. COMPARISON: CT CT CHEST/ABD/PEL WO from 07/28/2023 FINDINGS: Renal size in cm: Right: 10.4 left: 11.5 Echogenicity: Normal Hydronephrosis: No Cyst or mass: 1.6 centimeters cyst mid to lower pole left kidney. Nephrolithiasis: No No perinephric collections visible. Bladder:Normal. Prevoid vol:350 cc Postvoid vol:3 cc IMPRESSION: Negative renal ultrasound. DATA REPOSITORY:
[2023-07-30] MEDS: Doxycycline Hyclate 100 MG CAP PO ×2 (08:26→22:44)
[2023-07-30] MEDS: Apixaban 5 MG TAB PO ×2 (08:26→22:44)
[2023-07-30] MEDS: Ascorbic Acid 500 MG TAB PO (08:26)
[2023-07-30] MEDS: Vitamin E 400 UNITS CAP PO (08:26)
[2023-07-30] MEDS: Cholecalciferol (Vitamin D3) 1,000 UNIT TAB 2000 UNITS PO (08:26)
[2023-07-30] MEDS: Thiamine 100 MG TAB PO (08:26)
[2023-07-30] MEDS: Multivitamin w/Minerals TAB 1 TAB PO (08:26)
[2023-07-30] MEDS: Normal Saline Flush 10 ML SYR IVP ×2 (08:29→21:12)
[2023-07-30] MEDS: CEFEPIME 2 GM in Normal Saline 100 ML IVPB ×2 (08:43→21:12)
[2023-07-30] MEDS: Timolol 0.5% 5 ML BTL OU (08:44)
--- NOTE | 2023-07-30 08:52 | PDOC.CMPRO ---
Date of service: 07/30/23 Time of Service: 08:52 Care Management Progress Note Progress Note Text Progress Note Text: S/O:Jen was lying in bed dozing when CM met with her. She was pleasant but admitted to being sleepy. She stated that she is feeling good and just wanted to rest. Her plan will be to return home when discharged. She informed CM that her daughter will keep her in line and make sure she does what she is supposed to do. A: Jen is a 68 year old woman admitted on 07/28/23 with sepsis and pneumonia P:Jne will likely return home with no new ser vices when medically cleared.. She will follow up with community providers and plan of care and transport with family. CM will ontinue to follow and assess for discharge concerns..
[2023-07-30] MEDS: Calcitriol 0.25 MCG CAP PO (11:15)
--- NOTE | 2023-07-30 11:59 | PT.INIE ---
PT Notes Visit Reasons: Sepsis with shock, Right pneumonia, UTI Inpatient Physical Therapy Evaluation Date: 07/30/23 Referring Doctor: Dr. Batista PT Orders: PT CONSULT: Limited ability to ambulate Precautions: fall, standard Patient Profile/Admitting Diagnosis: Patient admitted from the ED on 07/29/23 following 3-4 days of vomiting and diarrhea. Now being treated in ICU for sepsis and pneumonia in the presence of sarcoidosis. PT consult requested to assess mobility. PMHX: All Active Problems (Updated 07/28/23 @ 22:33 by Naveed Canada) Elevated troponin level not due myocardial infarction (Acute) ENA (acute kidney injury) (Acute) Pneumonia (Acute) Acute UTI (Acute) Sepsis (Acute) Sarcoidosis (Chronic) Glaucoma (Chronic) Bilateral cataracts (Acute) Dyspnea on exertion (Acute) Hyperparathyroidism due to renal insufficiency (Acute) Screening for colon cancer (Acute) Serrated adenoma of colon (Acute) Tubular adenoma of colon (Acute) Hyperplastic colon polyp (Acute) Hypertension (Acute 05/21/14) untreated Acute renal failure (Acute) Adnexal mass (Acute) 5 cm hypoechoic left ovarian lesion most likely benign process. CA 125 currently pendingDVT prophylaxis (Acute) Cardiomyopathy (Chronic) Medical History Breast cancer screening H/O adenomatous polyp of colon High triglycerides Complaint of paresthesia Vitamin D deficiency Osteoporosis Ulnar neuropathy of right upper extremity Carpal tunnel syndrome on both sides Peripheral neuropathy Positive fecal immunochemical test 2020Atrial fibrillation Chronic kidney disease, stage 3 f/u a@ [facility] [place] per pt. stated she was told she didn't have this dxPrediabetes Menopausal syndrome Discharge planning issues Lung nodule Lytic lesion of bone on x-ray Hypercalcemia Dilated cardiomyopathy Hyperlipidemia (05/15/13) Essential hypertension Social History/Home Situation: Patient lives alone in a multilevel home. Her daughter is present for consultation, and plans to stay with Jen for a bit when she returns home. Jen is normally independent, working at a local [employer] and volunteering in the community. 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 Equipment Owned/DME: none Subjective: Jen states that she is feeling quite a bit better. She's walked to the commode and back, and noticed she was feeling a bit wobbly, but otherwise ok. Denies dizziness or shortness of breath. Objective: General Observation: Resting in bed with daughter present. On telemetry, with pulse oximetry and blood pressure cuff to LUE. IV in RUE. Mental Status: A&Ox3 Pain: denies Vital Signs: monitored throughout. SaO2 remains in the 90s throughout. She rests at 94% and maintains 90-95% on room air during ambulation. Moderate GUZMAN. ROM: Right Upper Extremity: WFL Left Upper Extremity: WFL Right Lower Extremity: WFL Left Lower Extremity: WFL Strength: Right Upper Extremity: Biceps 5/5. Triceps 5/5. Terminal Operations Supervisor is strong and equal. Left Upper Extremity: Biceps 5/5. Triceps 5/5. Terminal Operations Supervisor is strong and equal. Right Lower Extremity: Hip flexion 5/5. Quads 5/5. Ankle DF 5/5. Left Lower Extremity: Hip flexion 5/5. Quads 5/5. Ankle DF 5/5. Bed Mobility/Transfers: supine-sit: independent sit-stand: supervision stand-sit: supervision Gait: Ambulates 75' with SBA, no AD. Minor path deviation and minor LOB during turning, requiring CGA briefly. Balance: Static Sitting: Normal Dynamic Sitting: Normal Static Stanic Standing: Good Villarreal Balance Test: 40/56, placing patient at increased fall risk (cutoff 41/56) Special Tests: Mobility Limitations Standardized Measure [facility] AM-PAC 6 clicks Basic Mobility Inpatient Short Form: Raw Score: 23 CMS Score: 11% impairment Informed Consent/Education: Patient instructed in purpose of PT consult and plan of care. Treatment: Initial Evaluation (04339) Neuromuscular Re-education (06006): instructed in balance retraining activities: small RAI standing 30 seconds partial tandem 30 seconds each static standing 2 minutes sit-stand 5x, single LOB with poorly controlled stand-sit transfer Assessment: Patient is a 68 year old female referred to physical therapy services for mobility assessment during acute care stay for management of pneumonia and sepsis. Patient demonstrates good tolerance to household distance ambulation, although with balance impairments that sound to be acute on chronic. Once medically stable, she is appropriate for discharge home, with encouragement to seek out outpatient PT for balance retraining. She requires skilled PT intervention during her acute care stay to maximize safety and activity tolerance prior to returning home. She currently demonstrates the following impairment level findings: 1. Increased fall risk based on Villarreal Balance Score 2. gait impairments Impairments are contributing to the following functional limitations: 1. increased risk for falls Patient is assessed as Low 10197 complexity based on the following: History: Patient is an active and independent 68 year old female with chronic health conditions, currently in ICU for management of pneumonia and sepsis. No complicating factors. Examination: functional limitations as above Presentation: evolving Decision Making: low complexity Goals: Goals X1 week 1. Supine-Sit : independent 2. Sit-Supine : independent 3. Sit-Stand : independent 4. Stand-Sit : independent 5. Bed-Chair : independent 6. Chair-Bed : independent 7. Gait : supervision x 100' without GUZMAN 8. Stairs : ascend and descend 6 steps with single rail, SBA Plan of Care/Treatment Plan: 1-2x/day, 7 days/week x 1 week. Plan of care has been reviewed with the AIR SURVEILLANCE OPERATOR providing the service under Physical Therapy direction. Initiate Physical Therapy intervention for strengthening, bed mobility, transfers, gait, stairs, balance training, use of assistive device. Will plan to focus on balance retraining and progressive ambulation for improved activity tolerance and reduced fall risk. DISCHARGE RECOMMENDATIONS: Home with outpatient PT TREATMENT CODE/TIME: 11:10 - 12:00 ([id number], [id number]) Marilou Mosqueda, PT, DPT [facility]
--- NOTE | 2023-07-30 12:16 | W.PM.PROGNOT ---
Date of Service Date of service: 07/30/23 Time of Service: 12:17 Assessment and Plan Assessment and plan (1) Sepsis: Status: Acute Assessment and plan: -presented with vomiting for 3 days and appearing septic by criteria with some concern for hypotension though she does have a cardiomyopathy associate with sarcoidosis w/ pulmonary and renal involvement. -found to have right sided pneumonia and possible UTI. -CT imaging of her abdomen suggested bilateral perinephric stranding and left renal cyst but no abscess; no flank pain to suggest pyelonephritis. -was on vanc and cefepime for PNA -Vanc now DCed with MRSA swab negative -doxy added, will continue -will consider transition to PO antibiotics tomorrow based on culture results Qualifiers: Sepsis type: sepsis due to unspecified organism Sepsis acute organ dysfunction status: with acute organ dysfunction Severe sepsis acute organ dysfunction type: acute renal failure Acute renal failure type: unspecified Severe sepsis shock status: with septic shock Qualified Code(s): A41.9 - Sepsis, unspecified organism; R65.21 - Severe sepsis with septic shock; N17.9 - Acute kidney failure, unspecified (2) Pneumonia: Status: Acute Assessment and plan: -urine Legionella antigen and strep antigen, and mycoplasma PCR pending -continue doxy as noted above Qualifiers: Pneumonia type: due to unspecified organism Laterality: right Lung location: unspecified part of lung Qualified Code(s): J18.9 - Pneumonia, unspecified organism (3) Acute UTI: Status: Acute Assessment and plan: -perinephric stranding unlikely d/t pyelonephritis as this is bilateral and probably due to scarring chronic kidney disease. continue -cefepime and adjust antibiotics based on blood, urine cultures. (4) Elevated troponin level not due myocardial infarction: Status: Acute Assessment and plan: -Patient does have sarcoidosis with cardiomyopathy and that this and mild elevation in troponin probably is secondary to stress of her acute presentation. -trop now undetectable -Check echocardiogram to evaluate her LV function. Last echo was done 01/24/23 and showed a decline in her LVEF to 30% w/ global HK, mild to mod. MR, no AI or , and normal RV size and function. This was a decline from her prior LVEFT of 43% and no significant valvular pathology from 05/26/20. -hold Entresto and her diuretics this moring d/t her renal dysfunction and hypotension on 07/29 -I will allow her volume status to equilibrate w/ oral hydration and resume her HF meds tomorrow. (5) ENA (acute kidney injury): Status: Acute Assessment and plan: -Acute worsening of patient's baseline CKD with fluid resuscitation done cautiously and follow-up labs. -hold further iv fluids and allow her to drink freely -CR improved AM 07/30 from 2.1 to 1.7 (6) Cardiomyopathy: Status: Chronic Assessment and plan: -as noted above -repeat echocardiogram. -hold Entresto and diuretics today, resume tomorrow. 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 -Monitor clinically. (8) Chronic kidney disease, stage 3: Assessment and plan: -Exacerbated with symptoms and will be trended with labs. Qualifiers: Chronic kidney disease stage 3 subtype: stage 3b (GFR 30-44) Qualified Code(s): N18.32 - Chronic kidney disease, stage 3b (9) Atrial fibrillation: Assessment and plan: -Hx paroxysmal atrial fibrillation patient in regular rhythm presently. -Continue metoprolol and Eliquis. Qualifiers: Atrial fibrillation type: paroxysmal Qualified Code(s): I48.0 - Paroxysmal atrial fibrillation (10) Essential hypertension: Assessment and plan: -Hypotension with acute sepsis now improving. -Resume outpatient medications as allowable. Subjective Subjective Interval history since last seen: Patient states that she is doing well tody and feels much better as compared to yesterday. She has no other complaints or concerns at this time. Exam Narrative Exam Narrative: Well appearing female sitting up in the bed in no acute distress, AOx4, heart RRR, lungs mostly clear with some posterior rales on the right, abdomen soft, non-tender, non-distended Objective Last Vital Signs Temp 98.2 F 07/30/23 11:58 Pulse 75 07/30/23 12:01 Resp 18 07/30/23 12:01 BP 96/56 L 07/30/23 12:01 Pulse Ox 93 07/30/23 11:58 Laboratory Results - last 24 hr 07/29/23 07/30/23 07/30/23 16:03 00:30 06:24 WBC 7.81 RBC 4.29 Hgb 12.6 Hct 38.7 MCV 90 MCH 29.4 MCHC 32.6 RDW 13.9 Plt Count 177 MPV 12.2 H Immature Gran % 0.9 Neutrophils % 79.5 Lymphocytes % 8.7 Monocytes % 9.1 Eosinophils % 0.6 Basophils % 1.2 Nucleated RBC % 0.0 Absolute Neutrophils 6.21 Absolute Lymphocytes 0.68 L Absolute Monocytes 0.71 Absolute Eosinophils 0.05 Absolute Basophils 0.09 Sodium 145 Potassium 4.4 Chloride 111 H Carbon Dioxide 19.8 L Anion Gap 14.2 H BUN 39 H Creatinine 1.7 H Est GFR (CKD-EPI 2020) 32.26 Glucose 206 H Calcium 9.7 Troponin I < 50 Stl C.difficile Tox PCR Negative MRSA (TEM-PCR) Negative Time Spent with Patient Time Spent with Patient: >50 minutes (55min) Time was spent: preparing to see the patient(eg.review tests), obtaining and/or reviewing separately otained hiistory, referring, communicating with other health child care counselor, indepentently interpreting results, counseling the patient and care coordination
--- NOTE | 2023-07-30 16:36 | PT.INTREAT ---
Date of service: 07/30/23 Time of Service: 16:22 PT Notes Visit Reasons: Sepsis with shock, Right pneumonia, UTI Inpatient Physical Therapy Treatment Note [facility] Date: 07/30/23 PRECAUTIONS: Fall, standard, activity as tolerated. SUBJECTIVE: Patient reports slowly getting better. OBJECTIVE: Sidelying in bed, agreeable to therapy. ? PAIN: none reported VITALS: Closely monitored by nursing staff via telemetry. ? BED MOBILITY/TRANSFERS? Rolling L/R: Independent Supine-sit: Independent ? Sit-supine: Independent ? Sit-stand: SBA ? Stand-sit: SBA ? Bed-Chair: SBA ? Chair-bed: SBA Gait Training ([id number]): Direct one-on-one instruction and skilled instruction in: [] employing an assistive device [] modified weight-bearing status [x] movement sequencing [] turning and movement with proper form [] Provided verbal cues for equipment management and technique [] Provided instruction in gait pattern [x] Patient education regarding pacing and breathing techniques to maximize activity tolerance? GAIT? Assistive Device: none? Weight bearing: full Assist: SBA ? Distance:? 250 feet ? Deviation: no arm swing noted, some path deviation, minor LOB x1 which patient was able to recover independently. ? STAIRS: ascends and descends 4 six inch stairs and 6 four inch stairs with CGA and bilateral rails, step through gait pattern.? ASSESSMENT:? Patient tolerates therapy well, vitals stay WNL, no reports of pain, fatigue, or dyspnea at close of treatment session. PLAN: Continue global strengthening per plan of care until patient is medically cleared for discharge. TREATMENT CODE/TIME: 13 minutes beginning at 16:22
[2023-07-30] MEDS: Ondansetron O.D.T. 4 MG TABEF PO (17:28)
[2023-07-30] MEDS: Metoclopramide 10 MG/2 ML VIAL IVP (21:12)
[2023-07-30 22:32] LABS: Legionella Ag Detection Urine Positive (Negative)
[2023-07-30] MEDS: Latanoprost 0.005% 2.5 ML BTL OU (22:44)
[2023-07-31] MEDS: Metoprolol 25 MG TAB PO ×3 (00:46→12:27)
[2023-07-31 04:04] VITALS: BP 147/74; PULSE 56; RESP 20; TEMP 37; O2SAT 93
[2023-07-31 06:10] LABS: HCT 36.7 % (36.0-46.0); HGB 12.2 g/dL (11.2-15.7); MCH 29.8 pg (27.0-33.0); MCHC 33.2 % (32.0-36.0); MCV 90 fL (80-95); MPV 11.3 fL (8.0-11.0); Platelet Count 249 10^3/uL (130-400); RBC 4.09 10^6/uL (3.93-5.22); RDW 13.8 % (11.7-14.6); RDW-SD 45.4 fL; WBC 9.03 10^3/uL (4.4-10.8)
[2023-07-31 06:24] LABS: Anion Gap 13.2 mmol/L (3-11); BUN 39 mg/dL (7-18); CO2 18.8 mmol/L (21.0-32.0); CREATININE 1.5 mg/dL (0.55-1.02); Chloride 106 mmol/L (98-107); Estimated GFR 37.49 (mL/min/1.73m2); Glucose 221 mg/dL (74-106); Potassium 4.3 mmol/L (3.5-5.1); Sodium 138 mmol/L (136-145)
[2023-07-31 07:49] VITALS: BP 137/68; PULSE 60; RESP 16; TEMP 37; O2SAT 93
[2023-07-31] MEDS: Multivitamin w/Minerals TAB 1 TAB PO (07:55)
[2023-07-31] MEDS: Cholecalciferol (Vitamin D3) 1,000 UNIT TAB 2000 UNITS PO (07:55)
[2023-07-31] MEDS: Doxycycline Hyclate 100 MG CAP PO (07:56)
[2023-07-31] MEDS: Thiamine 100 MG TAB PO (07:56)
[2023-07-31] MEDS: Apixaban 5 MG TAB PO (07:56)
[2023-07-31] MEDS: Ascorbic Acid 500 MG TAB PO (07:57)
[2023-07-31] MEDS: CEFEPIME 2 GM in Normal Saline 100 ML IVPB (07:57)
[2023-07-31] MEDS: Timolol 0.5% 5 ML BTL OU (07:59)
[2023-07-31] MEDS: Vitamin E 400 UNITS CAP PO (09:17)
[2023-07-31 11:41] VITALS: BP 138/78; PULSE 64; RESP 18; TEMP 35.9; O2SAT 95
--- NOTE | 2023-07-31 14:49 | DSE_ITS ---
Date of service: 07/31/23 Time of Service: 17:47 DS: Diagnosis Discharge Diagnosis (1) Sepsis: Status: Acute Asessment and Plan: HPI as per admitting Physician: This is a 68-year-old female patient who has a history of sarcoidosis followed by [facility] and also followed locally by pulmonology and cardiology. She has a history of cardiomyopathy with reduced left- ventricular ejection fraction and has been stable medical therapy with recent echocardiogram revealing decrease in her EF from 40% to 30% prompting cardiac catheterization and evaluation which revealed no significant CAD according to the patient. She also has a history of proximal atrial fibrillation on metoprolol as well as Eliquis. She presents after 3-day history of nausea and vomiting feeling weak but not fainting and able to keep multiple medications down despite not being drink or eat. She had no diarrhea. No abdominal pain. She does have fever. She denies any change in dyspnea with her sarcoidosis and she had no productive cough. When she was seen in the ED she did have a fever and her blood pressure was dropping but she was not tachycardic. She did have significant leukocytosis, increase in her baseline creatinine with CKD stage IIIb and lactic acidosis. She did receive at least 2 L of fluid with 1 L of normal saline and at least 250 cc of lactated Ringer's with the rest of the 750 cc and solutions with medication. We will hold on IV fluids resuscitation at this time and continue IV antibiotic therapy broad-spectrum with Rocephin and Zithromax given initially but changed to cefepime and vancomycin because of her findings on imaging palpable UTI with complications and bilateral stranding on CT as well as right infiltrate on chest imaging. She is immunocompromised and at risk for sepsis but at this time appears be stable. She is in ICU because of her low blood pressure and sepsis syndrome with concerns for need for vasopressors admission. Patient also is on oxygen which is not her baseline and if she progresses with dyspnea worsening from her baseline she may benefit from steroid not being chronically on steroids for cyanosis. If she remains stable she will be placed on medical floor. She is a full code. -Patient initially treated with vancomycin and cefepime for pneumonia and UTI with concern for bilateral perinephric stranding without signs of abscess -She also had a type II NSTEMI with elevated troponin but echocardiogram showed EF of 40% which is roughly baseline -Continuing to hold Entresto due to ENA, recommend PCP follow-up for blood pressure and consideration of recontinuing medication -Patient ultimately had significant improvement in her medical condition -However, while her urine grew pansensitive E. coli, her urine antigen returned positive for Legionella -Patient does not have any risk factors, there is not been any recent outbreak, and no other known sick contacts -Therefore, decision was to discharge the patient with Levaquin as this would cover her presumed community-acquired pneumonia, urinary tract infection, as well as possible Legionella (2) Pneumonia: Status: Acute (3) Acute UTI: Status: Acute (4) Elevated troponin level not due myocardial infarction: Status: Acute (5) ENA (acute kidney injury): Status: Acute (6) Cardiomyopathy: Status: Chronic (7) Sarcoidosis: Status: Chronic (8) Essential hypertension: Discharge Plan Disposition Patient Disposition: Home Condition: Good Discharge Details Reason For Visit: Sepsis with shock, Right pneumonia, UTI Admit Date/Time: 07/28/23 21:33 Admit Provider: Olegario Cazares Attending Provider: Olegario Cazares Primary Care Provider: Sammie Cordero Hospital Course Hospital Course: Patient initially presented with severe sepsis secondary to urinary tract infection and pneumonia for which she was first treated with vancomycin and cefepime which was then de-escalated to Doxy and cefepime. Urine was growing porter sensitive E. coli and just prior to discharge patient's urine Legionella antigen was positive. Since decided the patient will be discharged with an additional 5 days of Levaquin which would cover her positive urine Legionella antigen, other potential cause of community-acquired pneumonia as well as her urinary tract infection. At which time was determined that the patient was stable for discharge Home Meds and New Rx's Prescriptions: New levofloxacin 750 mg tablet 750 mg PO DAILY Qty: 5 0RF Continued furosemide 20 mg tablet 20 mg PO DAILY alendronate 70 mg tablet 70 mg PO QWEEK Entresto 49-51 mg tablet 1 tab PO BID Qty: 180 3RF cholecalciferol (vitamin D3) 50 mcg (2,000 unit) capsule 50 mcg PO DAILY apixaban 5 mg tablet 5 mg PO BID Qty: 120 3RF Farxiga 10 mg tablet 10 mg PO DAILY spironolactone 25 mg tablet 25 mg PO DAILY metoprolol succinate 100 mg tablet extended release 24 hr 200 mg PO HS Multi Complete with Iron 1 EACH tablet 1 tab-cap PO DAILY ascorbic acid (vitamin C) [Vitamin C] 500 MG tablet 500 mg PO DAILY vitamin E 400 UNIT capsule 400 unit PO DAILY Qty: 1 garlic 1 EACH capsule 1 ea PO DAILY Fish Oil 1 EACH capsule 1 ea PO DAILY calcitriol 0.25 mcg capsule 0.25 mcg PO .3 x a week timolol maleate 0.5 % drops 1 drp ophthalmic (eye) DAILY thiamine HCl (vitamin B1) [Vitamin B-1] 100 mg Tablet 100 mg PO DAILY acetaminophen [Tylenol] 325 mg Tablet 325 - 650 mg PO Q4H PRN PRNQty: 0 0RF Discharge Instructions Instructions: Bacterial Pneumonia (DC), Urinary Tract Infection in Older Adults (DC) Stand Alone Forms: Nursing Discharge Form Referrals: Sammie Cordero MD [Primary Care Provider] - 08/17/23 10:00 am (Apt is with [facility] Danielle Goetz) Activity:: Activity as Tolerated Equipment/Supplies:: No Equipment Needed Diet:: As Tolerated Discharge Orders Discharge Orders: Discharge Order (Routine); Ordered 07/31/23 Ordered By: Luis Batista Discharge Data Discharge Date/Time-TO BE ENTERED AT DEPARTURE: 07/31/23 16:38 DS: Summary Time Spent with Patient providing and/or coordinating discharge services: Greater than 30 minutes Status at Discharge Functional status at discharge: independent ambulation Overall status at discharge: patient is back to baseline Mental Status: mental status grossly normal Speech and Movement: speech and movement normal Mood: congruent mood Affect: normal affect Exam Narrative Exam Narrative: Well appearing female sitting up in the bed in no acute distress, AOx4, heart RRR, lungs mostly clear with some posterior rales on the right, abdomen soft, non-tender, non-distended Psych Mental Status: mental status grossly normal Speech and Movement: speech and movement normal Mood: congruent mood Affect: normal affect DS: Data Vitals/I&O Vitals and I&O: Vital Signs Temperature 96.6 F L 07/31/23 11:41 Temperature Source Tympanic 07/31/23 11:41 Pulse 64 07/31/23 11:41 Pulse Rhythm Regular 07/31/23 14:25 Pulse 55 L 07/30/23 20:01 Respiratory Rate 18 07/31/23 11:41 Respiratory Effort Normal, Non-Labored 07/31/23 14:25 Respiratory Depth Normal 07/31/23 14:25 Respiratory Pattern Normal 07/31/23 14:25 Blood Pressure 138/78 07/31/23 11:41 Blood Pressure Mean 89 07/30/23 20:01 Blood Pressure Position Sitting 07/29/23 08:00 Pulse Oximetry 95 07/31/23 11:41 Oxygen Delivery Method Room Air 07/31/23 11:41 Oxygen Flow Rate 0 07/31/23 11:41 Pain Level 0 07/31/23 11:41 Comment pt states I feel so much better now 07/29/23 05:38 Intake & Output 07/30/23 07/31/23 07/31/23 17:59 05:59 17:59 Intake Total 1480 / 1480 100 / 1580 220 / 220 Output Total 1550 / 1550 400 / 1950 Balance -70 / -70 -300 / -370 220 / 220 Weight 207 lb 0.225 oz Intake: IV 120 / 120 100 / 220 20 / 20 Oral 1360 / 1360 200 / 200 Output: Urine 1550 / 1550 400 / 1950 Other: Urine Color Yellow Yellow Urine Appearance Clear Clear Clear Urine Odor Normal Normal Comment pT stated that she has been voiding. Goes independently to the toilet. Stool Size Large Small Stool Characteristics Soft Formed Formed Brown Voiding Methods Bedside Commode Toilet Data Completed and Pending Labs on day of discharge: Labs from last 24 hours 07/31/23 07/29/23 05:50 12:15 WBC 9.03 RBC 4.09 Hgb 12.2 Hct 36.7 MCV 90 MCH 29.8 MCHC 33.2 RDW 13.8 Plt Count 249 MPV 11.3 H Sodium 138 Potassium 4.3 Chloride 106 Carbon Dioxide 18.8 L Anion Gap 13.2 H BUN 39 H Creatinine 1.5 H Est GFR (CKD-EPI 2020) 37.49 Glucose 221 H Calcium 10.0 Urine Legionella Ag Positive A Preliminary micro results at discharge 07/28/23 17:45 Blood Culture - Preliminary Blood NO GROWTH 48 HOURS 07/28/23 17:30 Blood Culture - Preliminary Blood NO GROWTH 48 HOURS PFSH All Active Problems (Updated 07/28/23 @ 22:33 by Naveed Canada) Elevated troponin level not due myocardial infarction (Acute) ENA (acute kidney injury) (Acute) Pneumonia (Acute) Acute UTI (Acute) Sepsis (Acute) Sarcoidosis (Chronic) Glaucoma (Chronic) Bilateral cataracts (Acute) Dyspnea on exertion (Acute) Hyperparathyroidism due to renal insufficiency (Acute) Screening for colon cancer (Acute) Serrated adenoma of colon (Acute) Tubular adenoma of colon (Acute) Hyperplastic colon polyp (Acute) Hypertension (Acute 05/21/14) untreated Acute renal failure (Acute) Adnexal mass (Acute) 5 cm hypoechoic left ovarian lesion most likely benign process. CA 125 currently pending DVT prophylaxis (Acute) Cardiomyopathy (Chronic) Medical History Breast cancer screening H/O adenomatous polyp of colon High triglycerides Complaint of paresthesia Vitamin D deficiency Osteoporosis Ulnar neuropathy of right upper extremity Carpal tunnel syndrome on both sides Peripheral neuropathy Positive fecal immunochemical test 2019 Atrial fibrillation Chronic kidney disease, stage 3 f/u a@ [facility] [place] per pt. stated she was told she didn't have this dx Prediabetes Menopausal syndrome Discharge planning issues Lung nodule Lytic lesion of bone on x-ray Hypercalcemia Dilated cardiomyopathy Hyperlipidemia (05/15/13) Essential hypertension Surgical History Hx of colonoscopy S/P right oophorectomy Oophrectomy, Left Left ovary present at the time of pelvic ultrasound 12/24/2018 Diagnostic Laproscopy (~1980) During infertility evaluation when younger Appendectomy Family History Mother Dementia Father Prostate cancer Hypertension Hyperlipidemia Heart disease Social History Smoking/Tobacco Use Status: Never Smoking risk assessment performed?: Yes Alcohol Intake: never Drug use: Never Substance use type: does not use Housing: house Number of Children: 3 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 Do you feel safe at home: Yes Do you feel safe in your relationship?: Yes Additional Social history: live alone Time Spent with Patient Time Spent with Patient: <45 minutes Time was spent: preparing to see the patient(eg.review tests), obtaining and/or reviewing separately otained hiistory, ordering medications,tests, procedures, referring, communicating with other health critical care specialist, indepentently interpreting results, counseling the patient and care coordination
--- NOTE | 2023-07-31 14:57 | PDOC.CMDIS ---
Date of service: 07/31/23 Time of Service: 14:57 LACE Index Scoring Tool Questions: Length of Stay (in days): 3 Was the patient admitted via the E.D.?: Yes Comorbidities: Mild Liver/Renal Disease and Liver or Renal Disease E.D. Visits: 1 Answers: Total Score: 12 Risk of Readmission: High Risk Care Management Discharge Plan Reason for Hospitalization: Sepsis with shock, right pneumonia, UTI Discharge Plan: Jen will discharge home, follow up with community providers including plan of care (outpatient PT) and transport via private vehicle. Patient/Family Education Needs: Review discharge instructions, discuss Ask Me Three.
[2023-07-31 15:42] VITALS: BP 138/68; PULSE 74; RESP 18; TEMP 35.7; O2SAT 95
--- NOTE | 2023-07-31 16:27 | CHAPLAIN ---
Jen was resting in bed, but sat up at the edge of the bed to visit when I stopped in. 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 She said she began not feeling, throwing up and having a fever last Sunday and a friend brought her to the ED on Sunday. She ended up in the ICU as that was where a bed was available. Her agricultural sciences professor, Rev. Lukasz Scott, called me yesterday to see if Jen was still here. I wasn't working so I didn't know and encouraged him to call to see. He may have visited or at least called Taryn. Taryn daughter, Ayana, has returned home to stay with Jen when she is discharged.
[2023-08-01 00:28] LABS: Streptococcus Pneumoniae Ag, U Negative (Negative)
== END 2023-07-31 16:38 | disposition home or self-care (01) | DRG 871 ==
LOC: ER 22:32 → ICU 22:34 → MS 07-30 21:26
PROVIDERS: Family Medicine; Admitting Provider Internal Medicine; Emergency Provider Registered Nurse Emergency; PCP Family Medicine; Visit Provider Internal Medicine
DX: A41.9 Sepsis, unspecified organism (principal); I21.A1 Myocardial infarction type 2; J18.9 Pneumonia, unspecified organism; R65.21 Severe sepsis with septic shock; N17.9 Acute kidney failure, unspecified; E87.20 Acidosis, unspecified; N39.0 Urinary tract infection, site not specified; D84.9 Immunodeficiency, unspecified; R09.02 Hypoxemia; D86.85 Sarcoid myocarditis; N18.32 Chronic kidney disease, stage 3b; I48.0 Paroxysmal atrial fibrillation; Z79.01 Long term (current) use of anticoagulants; H40.9 Unspecified glaucoma; E78.1 Pure hyperglyceridemia; Z86.010 Personal history of colon polyps; E55.9 Vitamin D deficiency, unspecified; M81.0 Age-related osteoporosis without current pathological fracture; R73.03 Prediabetes; E78.5 Hyperlipidemia, unspecified; I12.9 Hypertensive chronic kidney disease with stage 1 through stage 4 chronic kidney disease, or unspecified chronic kidney disease; D86.89 Sarcoidosis of other sites; B96.20 Unspecified Escherichia coli [E. coli] as the cause of diseases classified elsewhere
CPT/HCPCS: 00123; 36415; 71250; 76770; 80048; 80053; 82805; 82962; 83690; 84145; 85027; 87040; 87077; 87449; 87493; 87635; 87641; 93005; 93306; 96361; 96365; 96367; 96368; 96375; 97112; 97116; 97161; 99285; 74176; 81003; 81015; 83605; 83735; 83880; 84443; 84484; 85025; 85610; 85730; 87086; 87186; 87899; 93010; 94667; 99223; 99233; 99239; 99291; J0131; J0456; J0696; J2405; J2765

== ENCOUNTER 2023-09-03 11:28 | Outpatient (RCR) | payer MEDICARE, SELFPAY | END 2023-09-16 23:59 | disposition home or self-care (01) | LOC: CR 11:28 | PROVIDERS: PCP Family Medicine; Visit Provider Family Medicine | DX: I50.23 Acute on chronic systolic (congestive) heart failure (principal); Z51.89 Encounter for other specified aftercare | CPT/HCPCS: S9472 ==

== ENCOUNTER 2023-10-17 08:03 | Outpatient (RCR) | payer MEDICARE, SELFPAY | END 2023-10-17 23:59 | disposition home or self-care (01) | LOC: CR 08:03 | PROVIDERS: PCP Family Medicine; Visit Provider Family Medicine | DX: I50.23 Acute on chronic systolic (congestive) heart failure (principal); Z51.89 Encounter for other specified aftercare | CPT/HCPCS: S9472 ==

== ENCOUNTER 2023-10-22 12:08 | Outpatient (CLI) | payer MEDICARE, SELFPAY ==
[2023-10-22 09:20] LABS: Anion Gap 10.3 mmol/L (3-11); BUN 36 mg/dL (7-18); CO2 23.7 mmol/L (21.0-32.0); CREATININE 1.4 mg/dL (0.55-1.02); Calcium 9.4 mg/dL (8.5-10.1); Chloride 108 mmol/L (98-107); Estimated GFR 40.73 (mL/min/1.73m2); Glucose 124 mg/dL (74-106); Potassium 4.4 mmol/L (3.5-5.1); Sodium 142 mmol/L (136-145)
== END 2023-10-22 12:09 | disposition home or self-care (01) ==
LOC: LBO 12:08
PROVIDERS: PCP Family Medicine; Visit Provider Internal Medicine
DX: I50.20 Unspecified systolic (congestive) heart failure (principal)
CPT/HCPCS: 36415; 80048

== ENCOUNTER 2023-11-12 08:00 | Outpatient (RCR) | payer MEDICARE, SELFPAY | END 2023-11-15 23:59 | disposition home or self-care (01) | LOC: CR 08:00 | PROVIDERS: PCP Family Medicine; Visit Provider Internal Medicine Cardiovascular Disease | DX: I50.23 Acute on chronic systolic (congestive) heart failure (principal); Z51.89 Encounter for other specified aftercare | CPT/HCPCS: S9472 ==

== ENCOUNTER → 2023-11-21 08:04 | Outpatient (BNVA) | payer MEDICARE, SELFPAY | PROVIDERS: PCP Family Medicine; Visit Provider Psychiatry & Neurology Neurology | DX: G62.9 Polyneuropathy, unspecified (principal); G56.03 Carpal tunnel syndrome, bilateral upper limbs; G56.21 Lesion of ulnar nerve, right upper limb; R73.9 Hyperglycemia, unspecified; D86.9 Sarcoidosis, unspecified; G61.9 Inflammatory polyneuropathy, unspecified | CPT/HCPCS: 99214 ==

== ENCOUNTER 2023-12-03 10:04 | Outpatient (CLI) | payer MEDICARE, SELFPAY ==
[2023-12-03 09:23] LABS: ESR 16 mm/hr (0-30)
[2023-12-03 10:16] LABS: Hemoglobin A1C 6.7 % (<5.7)
[2023-12-03 11:05] LABS: Vitamin B12 1148 pg/mL (193-986)
[2023-12-04 15:59] LABS: Albumin 59.1 % (55.8-66.1); Albumin g/dL 4.4 g/dL (3.6-5.2); Total Protein 7.4 g/dL (6.3-8.2)
== END 2023-12-03 10:05 | disposition home or self-care (01) ==
LOC: LBO 10:06
PROVIDERS: PCP Family Medicine; Visit Provider Psychiatry & Neurology Neurology
DX: G62.9 Polyneuropathy, unspecified (principal); R73.9 Hyperglycemia, unspecified
CPT/HCPCS: 36415; 85652; 82607; 83036; 84165; 86140

== ENCOUNTER 2023-12-14 08:00 | Outpatient (RCR) | payer MEDICARE, SELFPAY | END 2023-12-16 23:59 | disposition home or self-care (01) | LOC: CR 08:00 | PROVIDERS: PCP Family Medicine; Visit Provider Internal Medicine Cardiovascular Disease | DX: I50.23 Acute on chronic systolic (congestive) heart failure (principal); Z51.89 Encounter for other specified aftercare | CPT/HCPCS: S9472 ==

== ENCOUNTER 2023-12-17 10:51 | Outpatient (RCR) | payer MEDICARE, SELFPAY | END 2024-01-15 23:59 | disposition home or self-care (01) | LOC: CR 10:51 | PROVIDERS: PCP Family Medicine; Visit Provider Internal Medicine Cardiovascular Disease | DX: I11.0 Hypertensive heart disease with heart failure (principal); Z51.89 Encounter for other specified aftercare | CPT/HCPCS: S9472 ==

== ENCOUNTER 2023-12-28 00:40 | Outpatient (RCR) | payer MEDICARE, SELFPAY ==
[2023-12-24 07:55] VITALS: BP 99/59; PULSE 60; RESP 17; TEMP 37.2; O2SAT 95
[2023-12-24] MEDS: IMMUNE GLOBULIN 40 GM/400 ML BTL IVPB (07:57)
[2023-12-24 08:15] VITALS: BP 100/57; PULSE 61; RESP 18; TEMP 36.1; O2SAT 97
[2023-12-24] MEDS: Normal Saline Flush 10 ML SYR IVP (08:21)
[2023-12-24 08:29] VITALS: BP 99/62; PULSE 59; RESP 18; TEMP 37.1; O2SAT 96
[2023-12-24 09:00] VITALS: BP 120/73; PULSE 58; RESP 18; TEMP 37; O2SAT 98
[2023-12-24 09:35] VITALS: BP 119/62; PULSE 58; RESP 18; TEMP 36.1; O2SAT 97
[2023-12-25] VITALS (9 sets, daily range): BP systolic 82–119; BP diastolic 54–70; PULSE 53–64; RESP 16–18; TEMP 37.2–37.6; O2SAT 95–98
[2023-12-25] MEDS: Normal Saline Flush 10 ML SYR IVP (07:49)
[2023-12-25] MEDS: IMMUNE GLOBULIN 40 GM/400 ML BTL IVPB (07:49)
[2023-12-25 08:47] LABS: CREATININE 1.7 mg/dL (0.55-1.02); Estimated GFR 32.26 (mL/min/1.73m2)
[2023-12-26] VITALS (7 sets, daily range): BP systolic 102–126; BP diastolic 60–79; PULSE 55–64; RESP 17–20; TEMP 36.2–37.1; O2SAT 95–100
[2023-12-26] MEDS: Normal Saline Flush 10 ML SYR IVP (07:51)
[2023-12-26] MEDS: IMMUNE GLOBULIN 40 GM/400 ML BTL IVPB (07:51)
[2023-12-27 07:40] VITALS: BP 109/64; PULSE 57; RESP 17; TEMP 36.3; O2SAT 99
[2023-12-27] MEDS: Normal Saline Flush 10 ML SYR IVP (07:43)
[2023-12-27] MEDS: IMMUNE GLOBULIN 40 GM/400 ML BTL IVPB (07:43)
[2023-12-27 08:00] VITALS: BP 105/68; PULSE 52; RESP 18; TEMP 37; O2SAT 96
[2023-12-27 08:15] VITALS: BP 112/64; PULSE 55; RESP 19; TEMP 37; O2SAT 97
[2023-12-27 08:45] VITALS: BP 124/75; PULSE 59; RESP 20; TEMP 37.1; O2SAT 97
[2023-12-27 09:15] VITALS: BP 116/64; PULSE 54; RESP 19; TEMP 37.1; O2SAT 97
[2023-12-27 09:45] VITALS: BP 123/75; PULSE 52; RESP 19; TEMP 37; O2SAT 98
[2023-12-28] VITALS (8 sets, daily range): BP systolic 94–124; BP diastolic 59–78; PULSE 53–66; RESP 18; TEMP 36.2–37.1; O2SAT 95–100
[2023-12-28] MEDS: Normal Saline Flush 10 ML SYR IVP (07:53)
[2023-12-28] MEDS: IMMUNE GLOBULIN 40 GM/400 ML BTL IVPB (07:53)
[2023-12-28 08:05] LABS: CREATININE 1.5 mg/dL (0.55-1.02); Estimated GFR 37.49 (mL/min/1.73m2)
== END 2024-01-15 23:59 | disposition home or self-care (01) ==
LOC: INF 00:40
PROVIDERS: PCP Family Medicine; Visit Provider Psychiatry & Neurology Neurology
DX: G61.81 Chronic inflammatory demyelinating polyneuritis (principal); N18.30 Chronic kidney disease, stage 3 unspecified
CPT/HCPCS: 36415; 96365; 96366; 82565; J1459

== ENCOUNTER 2023-12-31 10:09 | Outpatient (REF) | payer MEDICARE, SELFPAY ==
[2023-12-31 16:10] LABS: Hemoglobin A1C 6.7 % (<5.7)
[2023-12-31 16:21] LABS: ALT 21 U/L (14-59); AST 18 U/L (15-37); Albumin 3.6 g/dL (3.4-5.0); Alkaline Phosphatase 69 U/L (46-116); Anion Gap 9.1 mmol/L (3-11); BUN 49 mg/dL (7-18); Bilirubin, Total 0.6 mg/dL (0.2-1.0); CO2 25.9 mmol/L (21.0-32.0); CREATININE 1.6 mg/dL (0.55-1.02); Calcium 9.2 mg/dL (8.5-10.1); Chloride 104 mmol/L (98-107); Glucose 154 mg/dL (74-106); NT-proBNP 699 pg/mL (<300); Potassium 4.7 mmol/L (3.5-5.1); Sodium 139 mmol/L (136-145); Total Protein 9.9 g/dL (6.4-8.2)
[2023-12-31 16:39] LABS: Cholesterol 201 mg/dL (<200); HDL Cholesterol 30 mg/dL (40-60); Triglyceride 461 mg/dL (<150)
[2023-12-31 17:29] LABS: LDL CHOLESTEROL 107 mg/dL (<100)
== END 2023-12-31 10:10 | disposition home or self-care (01) ==
LOC: NCHCN 10:09
PROVIDERS: PCP Family Medicine; Visit Provider Family Medicine
DX: N18.30 Chronic kidney disease, stage 3 unspecified (principal); R73.03 Prediabetes; I10 Essential (primary) hypertension
CPT/HCPCS: 80053; 80061; 83721; 83036; 83880

== ENCOUNTER → 2024-01-03 10:38 | Outpatient (BNVA) | payer MEDICARE, SELFPAY | PROVIDERS: PCP Family Medicine; Referring Provider Family Medicine; Visit Provider Psychiatry & Neurology Neurology | DX: G62.9 Polyneuropathy, unspecified (principal); G56.03 Carpal tunnel syndrome, bilateral upper limbs; G56.21 Lesion of ulnar nerve, right upper limb; D86.9 Sarcoidosis, unspecified; G61.9 Inflammatory polyneuropathy, unspecified | CPT/HCPCS: 95908; 99213 ==

== ENCOUNTER 2024-03-26 00:43 | Outpatient (RCR) | payer MEDICARE, SELFPAY ==
[2024-01-16 00:02] VITALS: BP 112/70; PULSE 57; RESP 18; TEMP 37
[2024-03-19] MEDS: IMMUNE GLOBULIN 40 GM/400 ML BTL IVPB (07:55)
[2024-03-19] MEDS: Normal Saline Flush 10 ML SYR IVP (07:55)
[2024-03-19 08:00] VITALS: BP 100/54; PULSE 65; RESP 17; TEMP 36.4; O2SAT 100
[2024-03-19 08:15] VITALS: BP 104/67; PULSE 64; RESP 17; TEMP 36.4; O2SAT 99
[2024-03-19 08:30] VITALS: BP 102/58; PULSE 64; RESP 17; TEMP 36.5; O2SAT 99
[2024-03-19 09:00] VITALS: BP 101/67; PULSE 64; RESP 16; TEMP 36.4; O2SAT 97
[2024-03-19 09:30] VITALS: BP 125/78; PULSE 64; RESP 16; TEMP 36.4; O2SAT 98
[2024-03-19 10:00] VITALS: BP 120/69; PULSE 59; RESP 16; TEMP 36.5; O2SAT 98
[2024-03-21] MEDS: IMMUNE GLOBULIN 40 GM/400 ML BTL IVPB (08:08)
[2024-03-21] MEDS: Normal Saline Flush 10 ML SYR IVP (08:09)
[2024-03-21 08:10] VITALS: BP 115/64; PULSE 64; RESP 17; TEMP 36.4; O2SAT 95
[2024-03-21 08:25] VITALS: BP 111/68; PULSE 62; RESP 17; TEMP 36.6; O2SAT 97
[2024-03-21 08:40] VITALS: BP 110/71; PULSE 64; RESP 17; TEMP 36.6; O2SAT 95
[2024-03-21 08:57] LABS: CREATININE 1.5 mg/dL (0.55-1.02); Estimated GFR 37.49 (mL/min/1.73m2)
[2024-03-21 09:10] VITALS: BP 117/73; PULSE 61; RESP 17; TEMP 36.8; O2SAT 96
[2024-03-21 09:40] VITALS: BP 121/72; PULSE 61; RESP 17; TEMP 36.5; O2SAT 97
[2024-03-21 10:10] VITALS: BP 124/80; PULSE 61; RESP 17; TEMP 36.8; O2SAT 96
[2024-03-24 08:00] VITALS: BP 114/75; PULSE 65; RESP 16; TEMP 36.3; O2SAT 95
[2024-03-24] MEDS: IMMUNE GLOBULIN 40 GM/400 ML BTL IVPB (08:09)
[2024-03-24] MEDS: Normal Saline Flush 10 ML SYR IVP (08:10)
[2024-03-24 08:25] VITALS: BP 111/75; PULSE 66; RESP 16; TEMP 36.4; O2SAT 93
[2024-03-24 08:45] VITALS: BP 123/79; PULSE 65; RESP 16; TEMP 36.3; O2SAT 95
[2024-03-24 09:20] VITALS: BP 126/80; PULSE 65; RESP 18; TEMP 36.4; O2SAT 97
[2024-03-24 09:45] VITALS: BP 136/83; PULSE 63; RESP 16; TEMP 36.2; O2SAT 99
[2024-03-24 10:15] VITALS: BP 142/83; PULSE 61; RESP 16; TEMP 35.9; O2SAT 95
[2024-03-25] MEDS: IMMUNE GLOBULIN 40 GM/400 ML BTL IVPB (07:49)
[2024-03-25 07:50] VITALS: BP 109/76; PULSE 72; RESP 17; TEMP 36.1; O2SAT 95
[2024-03-25] MEDS: Normal Saline Flush 10 ML SYR IVP (07:50)
[2024-03-25 08:05] VITALS: BP 106/71; PULSE 69; RESP 17; TEMP 36.1; O2SAT 95
[2024-03-25 08:20] VITALS: BP 114/77; PULSE 69; RESP 17; TEMP 36; O2SAT 95
[2024-03-25 08:50] VITALS: BP 114/79; PULSE 68; RESP 17; TEMP 36.2; O2SAT 97
[2024-03-25 09:20] VITALS: BP 123/85; PULSE 66; RESP 17; TEMP 36.1; O2SAT 98
[2024-03-25 09:50] VITALS: BP 121/78; PULSE 64; RESP 17; TEMP 36.2; O2SAT 97
[2024-03-26 07:40] VITALS: BP 100/78; PULSE 67; RESP 18; TEMP 36.3; O2SAT 96
[2024-03-26] MEDS: IMMUNE GLOBULIN 40 GM/400 ML BTL IVPB (07:59)
[2024-03-26 08:15] VITALS: BP 138/84; PULSE 68; RESP 17; TEMP 36.3; O2SAT 96
[2024-03-26 08:16] LABS: CREATININE 1.5 mg/dL (0.55-1.02); Estimated GFR 37.49 (mL/min/1.73m2)
[2024-03-26 08:30] VITALS: BP 118/75; PULSE 68; RESP 17; TEMP 36.4; O2SAT 95
[2024-03-26 09:00] VITALS: BP 113/66; PULSE 65; RESP 18; TEMP 36.4; O2SAT 95
[2024-03-26 09:30] VITALS: BP 113/74; PULSE 66; RESP 18; TEMP 36.4; O2SAT 95
[2024-03-26] MEDS: Normal Saline Flush 10 ML SYR IVP (10:30)
== END 2024-04-16 23:59 | disposition home or self-care (01) ==
LOC: INF 00:43
PROVIDERS: PCP Family Medicine; Visit Provider Psychiatry & Neurology Neurology
DX: G61.81 Chronic inflammatory demyelinating polyneuritis (principal)
CPT/HCPCS: 36415; 96365; 96366; 82565; J1459

== ENCOUNTER 2024-04-09 10:51 | Outpatient (REF) | payer MEDICARE, SELFPAY ==
[2024-04-09 16:58] LABS: COMMENT (LAB VIEW ONLY) 67.72 mg/dL; Microalb ug/mg Crea 22.2 ug/mg Cr
== END 2024-04-09 10:52 | disposition home or self-care (01) ==
LOC: NCHCN 10:51
PROVIDERS: PCP Family Medicine; Visit Provider Family Medicine
DX: E11.9 Type 2 diabetes mellitus without complications (principal)
CPT/HCPCS: 82043; 82570

== ENCOUNTER → 2024-04-16 00:53 | Outpatient (CLI) | payer MEDICARE, SELFPAY ==
--- NOTE | 2024-04-16 | DI.US_ITS ---
Exam(s) US THYROID EXAM: US THYROID CLINICAL HISTORY: THYROID NODULE,E04.1,THYROID NOTED [place] [facility] [place]CHNIQUE: Ultrasound thyroid performed using standard protocol. COMPARISON: CT CT CHEST/ABD/PEL WO from 12/24/2018 FINDINGS: ISTHMUS: 8 mm. Nodule measuring 1.0 x 1.1 x 1.2 cm, low echo solid, ill-defined margins, macrocalcif ication. Wider than tall, TR 5, FNA recommended. RIGHT LOBE: Size: 5.9 x 1.5 x 1.6 cm Echogenicity: Normal. Vascularity: Normal. Nodules: None. LEFT LOBE: Size: 4.7 x 1.7 x 1.3 cm Echogenicity: Normal. Vascularity: Normal. Nodules: Coarse calcification seen near the upper pole with shadowing measuring 7 millimeters. Addit ional coarse calcification seen in the mid thyroid causing shadowing. OTHER FINDINGS: None. IMPRESSION: 1.2 centimeter solid nodule in the isthmus corresponding to the active lesion on PET CT. TI-RADS 5. FNA recommended. DATA REPOSITORY:
== END ==
PROVIDERS: PCP Family Medicine; Visit Provider Family Medicine
DX: E04.1 Nontoxic single thyroid nodule (principal)
CPT/HCPCS: 76536

== ENCOUNTER → 2024-05-12 10:02 | Outpatient (BNVA) | payer MEDICARE, SELFPAY | PROVIDERS: PCP Family Medicine; Referring Provider Family Medicine; Visit Provider Physician Assistant Surgical ==

== ENCOUNTER 2024-05-12 16:39 | Outpatient (CLI) | payer MEDICARE, SELFPAY ==
[2024-05-12 11:08] LABS: Abs Immature Grans 0.01 10^3/uL (0.0-0.06); Absolute Basophil Count 0.07 10^3/uL (0.0-0.2); Absolute Eosinophil Count 0.12 10^3/uL (0.0-0.7); Absolute Lymphocyte Count 1.38 10^3/uL (1.2-3.4); Absolute Monocyte Count 0.57 10^3/uL (0.1-0.8); Absolute Neutrophil Count 4.04 10^3/uL (1.2-6.7); Basophils % 1.1 %; Eosinophils % 1.9 %; HCT 46.3 % (36.0-46.0); Immature Grans % 0.2 %; Lymphocytes % 22.3 %; MCH 30.1 pg (27.0-33.0); MCHC 32.4 % (32.0-36.0); MCV 93 fL (80-95); Monocytes % 9.2 %; Neutrophils % 65.3 %; Platelet Count 188 10^3/uL (130-400); RBC 4.99 10^6/uL (3.93-5.22); RDW 13.9 % (11.7-14.6); RDW-SD 47.2 fL; WBC 6.19 10^3/uL (4.4-10.8)
[2024-05-12 11:41] LABS: ALT 36 U/L (14-59); AST 23 U/L (15-37); Albumin 3.9 g/dL (3.4-5.0); Alkaline Phosphatase 86 U/L (46-116); Anion Gap 7.9 mmol/L (3-11); BUN 28 mg/dL (7-18); Bilirubin, Total 0.79 mg/dL (0.2-1.0); CO2 27.1 mmol/L (21.0-32.0); CREATININE 1.4 mg/dL (0.55-1.02); Calcium 9.9 mg/dL (8.5-10.1); Chloride 107 mmol/L (98-107); Estimated GFR 40.47 (mL/min/1.73m2); Glucose 76 mg/dL (74-106); Potassium 4.6 mmol/L (3.5-5.1); Sodium 142 mmol/L (136-145); Total Protein 8.1 g/dL (6.4-8.2)
--- OUTSIDE RECORDS SUMMARY | 2024-05-12 16:41 | XMS_ITS | Encounter Summary ---
[place] [address] Care Team Providers Care Admeasurer Name Role Phone Sammie Cordero MD Primary Care Provider [phone] Encounter Details Date Type Department Care Team (Latest Contact Info) Description 01/31/2024 Travel Social History Tobacco Use Types Packs/Day Years Used Date Smoking Tobacco: Never Smokeless Tobacco: Never Alcohol Use Standard Drinks/Week Comments Never 0 (1 standard drink = 0.6 oz pur e alcohol) DH IPV Inpatient Questions Answer Date Recorded Does Anyone Try to Keep You From Having Contact with Others or Doing Things Outside Your Home? no 05/02/2023 Feels Threatened by Someone no 04/17 Feels Unsafe at Home or Work/School no 05/02/2023 Physical Signs of Abuse Present no 05/02/2023 Sex and Gender Information Value Date Recorded Sex Assigned at Female 11/05/2020 8:19 AM EST Gender Identity Not on file Sexual Orientation Straight 11/05/2020 8: 19 AM EST documented as of this encounter Plan of Treatment Not on file documented as of this encounter Visit Diagnoses Not on filedocumented in this encounter Care Teams Admeasurer Relationship Specialty Start Date End Date Sammie Cordero MD [address] [place] [address] PCP - General Family Medicine 09/12/19 documented as of this encounter
--- OUTSIDE RECORDS SUMMARY | 2024-05-12 16:41 | XMS_ITS | Encounter Summary ---
[place] [address] Care Team Providers Care Section Chief Name Role Phone Sammie Cordero MD Primary Care Provider [phone] Encounter Details Date Type Department Care Team (Latest Contact Info) Description 02/06/2024 1:00 PM EDT Laboratory Appointment Lab [address] [place] [id number] HFrEF (heart failure with reduced ejection fraction) Social History Tobacco Use Types Packs/Day Years Used Date Smoking Tobacco: Never Smokeless Tobacco: Never Alcohol Use Standard Drinks/Week Comments Never 0 (1 standard drink = 0.6 oz pur e alcohol) IPV Inpatient Questions Answer Date Recorded Does [...] on file documented as of this encounter Procedures Procedure Name Priority Date/Time Associated Diagnosis Comments PRO-BRAIN NATRIURETIC PEPTIDE Routine 02/06/2024 1:16 PM EDT HFrEF (heart failure with reduced ejection fraction) BASIC METABOLIC PANEL Routine 02/06/2024 1:16 PM EDT HFrEF (heart failure with reduced ejection fraction) documented in this encounter Results * (ABNORMAL) Basic Metabolic Panel (non-fasting) (02/06/2024 1:16 PM EDT) Glucose 99 65 - 199 mg/dL [facility] Comment:Diabetes: >=200 mg/d L plus symptoms Blood Urea Nitrogen 25(H) 8 - 18 mg/dL [facility] Creatinine 1.36(H) 0.70 - 1.20 mg/dL [facility] Sodium 138 135 - 145 mmol/L [facility] Potassium 4.4 3.5 - 5.0 mmol/L [facility] Comment: Please note: ??Patients with WBC >100,000 may have falsely elevated Potassium levels. ??For accurate Potassium quantification in these patients send serum separator tube (gold top) for subsequent determinations. ??Contact the Clinical Chemistry Laboratory if there are any questions. Chloride 105 98 - 107 mmol/L [facility] Carbon Dioxide 22 22 - 31 mmol/L [facility] Anion Gap 11 5 - 15 mmol/L [facility] Calcium 9.3 8.5 - 10.5 mg/dL [facility] Est Glomerular Filtration Rate 42(L) >=60 mL/min/1. 73 m?? [facility] Comment: This patient's estimated GFR was calculated using the 2020 CKD-EPI equation. The estimated GFR can vary from the measured GFR by up to 30% in the absence of rapidly changing kidney function. Assessment of the estimated GFR is not appropriate when creatinine concentrations are rapidly changing. For clinical situations in which a more precise estimate of GFR is necessary, consider alternative methods of GFR estimation such as a 24-hour urine creatinine clearance. Assignment of CKD stage 1-5 for patients with an eGFR near the transition point between stages may be based on clinical assessment of muscle mass and symptoms in addition to eGFR. Blood 02/06/2024 1:16 PM EDT 02/06/2024 1:21 PM EDT Narrative Resulting Agency Comment Spec In Lab Catherine Hamilton MD CHEMISTRY ORDERAB LES Performing Organization Address City/[facility]/ZIP Co de Phone Number [facility] [place] [place] [address] * (ABNORMAL) pro-Brain Natriuretic Peptide (02/06/2024 1:16 PM EDT) NT-proBNP 624(H) <=124 pg/mL [facility] Blood 02/06/2024 1:16 PM EDT 02/06/2024 1:21 PM EDT Narrative Resulting Agency Comment Spec In Lab Catherine Hamilton MD CHEMISTRY ORDERAB LES Performing Organization Address [facility] Co de Phone Number [facility] [place] [address] documented in this encounter Visit Diagnoses Diagnosis HFrEF (heart failure with reduced ejection fraction) documented in this encounter Care Teams Section Chief Relationship Specialty Start Date End Date Sammie Cordero MD [facility] [address] [place] [address] PCP - General Family Medicine 09/12/19 documented as of this encounter
--- OUTSIDE RECORDS SUMMARY | 2024-05-12 16:41 | XMS_ITS | Clinical Summary ---
Author Organization [facility] Address [facility] [place] [address] Care Team Providers Care Warm In Worker Name Role Phone Sammie Cordero MD Primary Care Provider [phone] Allergies Active Allergy Reactions Criticality Noted Date Comments Pollen Extracts 02/06/2024 Medications Medication Sig Dispensed Refills Start Date End Date Status multivitamin (THERAGRAN) Tablet Take 1 tablet by mouth daily. Active ascorbic acid, Vitamin C, (Vitamin C) 500 mg tablet Take 500 mg by mouth daily. Active fish oil-omega-3 fatty acids 1,000 mg Capsule Take 1 g by mouth daily. Active Garlic Capsule Take by mouth daily. Active thiamine (Vitamin B-1) 100 mg Take 100 mg by mouth daily. Active ELIQUIS 2.5 mg Tablet take 1 tablet by mouth twice a day 0 02/07/2019 Active alendronate (FOSAMAX) 70 mg Tablet take 1 tablet by mouth every week 0 01/28/2019 Active vitamin E 400 unit capsuleIndications:Ta kinza 500mg Take by mouth. Indications: Taking 500mg Active furosemide (LASIX) 20 mg Tablet 06/12/2019 Active spironolactone (ALDACTONE) 25 mg Tablet TAKE 1 TABLET BY MOUTH ONCE DAILY 2 06/10/2019 Active dapagliflozin propanediol (Farxiga) 10 mg tablet Take 10 mg by mouth daily. Active timoloL (Timoptic) 0.25 % Drops 1 drop daily. Active latanoprost (Xalatan) 0.005 % Drops 1 drop nightly. Active acetaminophen (Tylenol) 325 mg tablet Take 650 mg by mouth every 4 hours as needed. 12/31/2018 Active metoprolol succinate XL (Toprol-XL) 200 mg ER 24 hr tabletIndications:HFr EF (heart failure with reduced ejection fraction) Take 1 tablet by mouth daily. 90 tablet 3 05/07/2023 Active sacubitriL-valsartan (Entresto) 97-103 mg tabletIndications:HFr EF (heart failure with reduced ejection fraction) Take 1 tablet by mouth 2 times daily. 180 tablet 3 09/28/2023 Active cyanocobalamin, Vitamin B-12, (Vitamin B-12) 1,000 mcg tablet Take 1,000 mcg by mouth daily. Active Cholecalciferol, Vitamin D3, 125 mcg (5,000 unit) Capsule Take by mouth. 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 ARF (acute renal failure) 12/31/2018 Hypercalcemia 12/31/2018 Nodule of left lung 12/31/2018 Bone lesion 12/31/2018 Social History Tobacco Use Types Packs/Day Years Used Date Smoking Tobacco: Never Smokeless Tobacco: Never Tobacco Cessation:Counseling Given: Not Answered Alcohol Use Standard Drinks/Week Comments Never 0 [...] Orientation Straight 11/05/2020 8: 19 AM EST Last Filed Vital Signs Vital Sign [place] Time Taken Comments Blood Pressure 136/80 02/06/2024 1:45 PM EDT Pulse 55 02/06/2024 1:45 PM EDT Temperature 36.1 ??C (97 ??F) 05/02/2023 7:43 PM EDT Respiratory Rate 18 05/02/2023 8:00 PM EDT Oxygen Saturation 99% 02/06/2024 1:45 PM EDT Inhaled Oxygen Concentration - - Weight 95.7 kg (211 lb) 02/06/2024 1:45 PM EDT Height 172.7 cm (5' 8) 02/06/2024 1:45 PM EDT Body Mass Index 32.08 02/06/2024 1:45 PM EDT Plan of Treatment Health Maintenance Due Date Last Done Comments CT Colonography 1954 Colonoscopy 1954 Colorectal Cancer Screening 1954 FIT DNA 1954 FIT 1954 Sigmoidoscopy (10 year) with FIT yearly 1954 Sigmoidoscopy 1954 Pneumoccocal Vaccine: 65+ (1 of 2 - PCV) 1960 Hepatitis C Screening 1972 Lipid Screening 1972 Tdap adult 1973 Tetanus vaccine 1973 Breast Cancer Share Decision Needed 1994 Breast Cancer screening 1994 Zoster vaccine (1 of 2) 2004 Advance Directive 2009 Bone Density Scan 2019 Covid-19 Vaccine (1 - 2022-2 4 season) 2023 Influenza (Flu) vaccine (1 o f 1 - Influenza standard series) 05/18/2024 Diabetes Screening (HgbA1C o r Glucose) 02/05/2027 02/06/2024, 08/20/2023, 05/02/2023, Additional history exists Procedures Procedure Name Priority Date/Time Associated Diagnosis Comments BASIC METABOLIC PANEL Routine 02/06/2024 1:16 PM EDT HFrEF (heart failure with reduced ejection fraction) from Last 3 Months or Most Recently Relevant to Health Maintenance Results * (ABNORMAL) Basic Metabolic Panel (non-fasting) (02/06/2024 1:16 PM EDT) Glucose 99 65 - 199 mg/dL [facility] Comment:Diabetes: >=200 mg/d L plus symptoms Blood Urea Nitrogen 25(H) 8 - 18 mg/dL [facility] Creatinine 1.36(H) 0.70 - 1.20 mg/dL [facility] Sodium 138 135 - 145 mmol/L [facility] Potassium 4.4 3.5 - 5.0 mmol/L [facility] Comment: Please note: ??Patients with WBC >100,000 may have falsely elevated Potassium levels. ??For accurate Potassium quantification in these patients send serum separator tube (gold top) for subsequent determinations. ??Contact the Clinical Chemistry Laboratory if there are any questions. Chloride 105 98 - 107 mmol/L [facility] Carbon Dioxide 22 22 - 31 mmol/L [facility] Anion Gap 11 5 - 15 mmol/L [facility] Calcium 9.3 8.5 - 10.5 mg/dL [facility] Est Glomerular Filtration Rate 42(L) >=60 mL/min/1. 73 m?? [facility] Comment: This patient's estimated GFR was [...] Lab Catherine Hamilton MD CHEMISTRY ORDERAB LES [facility] [place] [address] from Last 3 Months or Most Recently Relevant to Health Maintenance Advance Directives * Attempt Cardiopulmonary Resuscitation - Inpatient (Latest Code Status on File) Date Activated Date Inactivated Comments 05/02/2023 3:38 PM 05/02/2023 10:45 PM Question Answer Comments Code Status decision made by: Patient * Full Code Date Activated Date Inactivated Comments 01/21/2019 2:01 PM 01/22/2019 4:56 AM Question Answer Comments Does patient have capacity t o make decision: Yes Content of discussion: The patient affir med she wishes to be full code. * Full Code Date Activated Date Inactivated Comments 01/01/2019 9:30 AM 01/01/2019 11:42 AM Question Answer Comments Does patient have capacity t o make decision: Yes Content of discussion: Patient stated sh e wishes to be full code. Discussion held in preprocedure room at 9:20 AM on procedure day. Care Teams Warm In Worker Relationship Specialty Start Date End Date Sammie Cordero MD [facility] [address] [place] [address] PCP - General Family Medicine 09/12/19
--- OUTSIDE RECORDS SUMMARY | 2024-05-12 16:41 | XMS_ITS | Encounter Summary ---
[place] [address] Care Team Providers Care Washing Tub Operator Name Role Phone Sammie Cordero MD Primary Care Provider [phone] Reason for Visit * Reason Onset Date Comments Follow-up 08/31/2023 Entresto increas e Encounter Details Date Type Department Care Team (Late st Contact Info) Description 08/31/2023 Telephone Cardiology at [address] [phone] Libby Parekh, RN Follow-up (Entresto increase) Social History Tobacco Use Types Packs/Day Years Used Date Smoking Tobacco: Never Smokeless Tobacco: Never Alcohol Use Standard Drinks/Week Comments Never 0 (1 standard drink = 0.6 oz pur e alcohol) [facility] Inpatient Questions Answer Date Recorded Does Anyone [...] AM EST documented as of this encounter Miscellaneous Notes * Telephone Encounter - Libby aPrekh RN - 09/04/2023 1:15 PM EST Pt contacted with the following response from Dr Hamilton: I had thought she had already been on 49-51 - and I asked her to take two of those (so up to 97-103) - was she sure she was taking 2 x 24-26s rather graff 49-51s? If she is on that lower dose, we can have her go up to full dose next week (97-103) and see if she tolerates. Pt confirms that she is still using up the 24-26 mg tabs by taking 2 tabs bid. Her pharmacy had to order the 49-51 mg tabs. She is aware that she will take 2 of the 49-51 mg tabs when she gets the new prescription. Pt to call this sports book writer when she gets the 49-51 mg tablets to confirm the current dose, sooner with any questions/concerns. Pt verbalized good understanding of the current POC. * Telephone Encounter - Libby Parekh RN - 08/31/2023 11:34 AM EST Pt contacted at the home number listed to see how she is doing on the increased dose of Entresto to49-51 mg bid. Pt reports that she does not feel any different. Her home BP readings have been in the 125/72 range, sane as before. Weight is stable at 197 lbs. She is currently taking 2 24-26 mg tabs bid, will need a new prescription sent to her local [facility] in [place]. Update sent to Dr Hamilton for next steps. * Telephone Encounter - Lbiby Parekh RN - 08/31/2023 11:33 AM EST ----- Message from Catherine Hamilton MD sent at 08/28/2023 6:23 AM EST ----- Entresto dose increased to full - would you be able to follow up and see how she is tolerating? Thank you! documented in this encounter Plan of Treatment Not on file documented as of this encounter Visit Diagnoses Not on filedocumented in this encounter Care Teams Washing Tub Operator Relationship Specialty Start Date End Date Sammie Cordero MD [address] [facility] [address] [place] [address] PCP - General Family Medicine 09/12/19 documented as of this encounter
--- OUTSIDE RECORDS SUMMARY | 2024-05-12 16:41 | XMS_ITS | Data Portability ---
Author Organization [facility], [facility] Address [address] [place] [address] Care Team Providers Care Well Blower Name Role Phone SAMMIE CORDERO Primary Care Provider [facility] OFFICE OTHER MARILU AGUILAR Lab Pack Chemist MEERA VIDALES Neurologist ARETHA CALDERA [employer] Assessment No assessment recorded. Plan of Treatment Reminders Order Date Submit Date Provider Last Modified By Organization Details Last Modified Time Details Appointments Follow Up 20 2023 09:00A M Not available Not available Not available Lab CMP, serum or plasma - Right AC 1 sst 1 lav 2023 024 [facility] (Registration ), [address] [place] [address] [place], [address], 12/31/2023 16:24:05 HbA1c (hemoglob in A1c), blood - Right AC 1 sst 1 lav 2023 024 [facility] (Registration ), [address] [place] [address] [place], [address], 12/31/2023 17:37:11 lipid panel, serum - Right AC 1 sst 1 lav 2023 024 [facility] (Registration ), [address] [place] [address] [place], [address], 12/31/2023 17:35:52 BNP (B-type natriuret ic peptide), serum or plasma - Right AC 1 sst 1 lav 2023 024 [facility] (Registration ), [address] [place] [address] , [place], [address], 12/31/2023 17:35:39 hemoglobi n A1C, fingersti ck 2023 024 [email or web address] [facility], [address] , [place], [address], 04/09/2024 09:31:26 microalbu min, urine 2023 024 [facility] (Registration ), [address] [place] [address] [place], [address], 04/09/2024 17:31:05 Referral None recorded. Procedures None recorded. Surgeries None recorded. Imaging US, thyroid - nodule noted on PET scan done at [facility]. 2023 024 [email or web address] [facility], [address], [place], [address], 04/16/2024 15:26:16 Medication Orders Ozempic 0.25 mg or 0.5 mg (2 mg/3 mL) subcutane ous pen injector 2023 024 [email or web address] [id number], [address] [place] [address], [id number], 04/09/2024 09:31:51 calcitrio l 0.25 mcg capsule 2023 024 JONO [facility] #[id number], [address] [place] [address], [id number], 01/07/2024 13:01:38 calcitrio l 0.25 mcg capsule 2023 024 [email or web address] [facility] #[id number], [address] [place] [address], [id number], 01/07/2024 11:53:26 cholecalc iferol (vitamin D3) 50 mcg (2,000 unit) capsule 2023 024 JONO [facility] #[id number], [address] [place] [address], [id number], 01/07/2024 13:03:00 furosemid e 20 mg tablet 2023 024 [email or web address] [id number], [address] [place] [address], [id number], 01/07/2024 11:53:26 spironola ctone 25 mg tablet 2023 024 [email or web address] [facility] #[id number], [address] [place] [address], [id number], 01/07/2024 11:53:26 Entresto 97 mg-103 mg tablet 2023 024 [email or web address] [facility] #[id number], [address] [place] [address], [id number], 01/07/2024 11:53:26 Eliquis 5 mg tablet 2023 024 [email or web address] [facility] #[id number], [address] [place] [address], [id number], 01/07/2024 11:53:26 metoprolo l succinate ER 200 mg tablet,ex tended release 24 hr 2023 024 [email or web address] [facility] #60384, [address] [place] [address], [id number], 01/07/2024 11:53:26 atorvasta tin 20 mg tablet 2023 024 JONO [facility] #68215, [address] [place] [address], [id number], 04/09/2024 09:31:29 Ozempic 1 mg/dose (4 mg/3 mL) subcutane ous pen injector 2023 024 JONO [facility][id number], [address] [place] [address], [id number], 04/09/2024 09:31:30 Patient TargetsNo targets recorded. Patient Instructions Encounter Date Encounter Id Patient Instructions Last Modified By Organization Details Last Modified Time 01/07/2024 [id number] exercise [email or web address] Not available 01/06 13:04:28 When you get the OZEMPIC, call and make an appointment to meet with Sofi Almaguer our diabetic nurse, to learn how to give it: 0.25 mg for the first 4 doses, then increase to 0.5 mg. Bring your durable power of attorney general paperwork in either signed, or we can do it here when you bring it in. 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 I do not see that she has had recent thyroid blood level testing. Referring Physician: Sammie Cordero, Family Medicine, Encounter Date: 04/16/2024 Results Created Date Observation Date Name Description Value Unit Range Abnormal Flag LastModifiedBy Organization Detail LastModifiedTime 10/22/19 24 10/22/2023 BASIC METAB OLIC PANEL calcium 9.4 mg/dL 8.5-10 .1 normal Not Available [address] [place], [address] 10/22/2023 09:30:43 10/22/19 24 10/22/2023 BASIC METAB OLIC PANEL glucose 124 mg/dL 74-106 high Not Available [address] [place], [address] 10/22/2023 09:30:43 10/22/19 24 10/22/2023 BASIC METAB OLIC PANEL BUN 36 mg/dL 7-18 high Not Available [address] [place], [address] 10/22/2023 09:30:43 10/22/19 24 10/22/2023 BASIC METAB OLIC PANEL creatinine 1.4 mg/dL 0.55-1 .02 high Not Available [address] [place], [address] 10/22/2023 09:30:43 10/22/19 24 10/22/2023 BASIC METAB OLIC PANEL estimated GFR 40.73 mL/min /1.73m 2 Not Available [address] [place], [address] 10/22/2023 09:30:43 10/22/19 24 10/22/2023 BASIC METAB OLIC PANEL sodium 142 mmol/ L 136-14 5 normal Not Available [address] [place], [address] 10/22/2023 09:30:43 10/22/19 24 10/22/2023 BASIC METAB OLIC PANEL potassium 4.4 mmol/ L 3.5-5. 1 normal Not Available [address] [place], [address] 10/22/2023 09:30:43 10/22/19 24 10/22/2023 BASIC METAB OLIC PANEL chloride 108 mmol/ L 98-107 high Not Available [address] [place], [address] 10/22/2023 09:30:43 10/22/19 24 10/22/2023 BASIC METAB OLIC PANEL CO2 23.7 mmol/ L 21.0-3 2.0 normal Not Available [address] [place], [address] 10/22/2023 09:30:43 10/22/19 24 10/22/2023 BASIC METAB OLIC PANEL anion gap 10.3 mmol/ L 3-11 normal Not Available [address] [place], [address] 10/22/2023 09:30:43 10/22/19 24 10/22/2023 BASIC METAB OLIC PANEL calcium 9.4 mg/dL 8.5-10 .1 normal Not Available [address] [place], [address] 10/22/2023 10:29:48 10/22/19 24 10/22/2023 BASIC METAB OLIC PANEL glucose 124 mg/dL 74-106 high Not Available [facility] [address] [place], [address] 10/22/2023 10:29:48 10/22/19 24 10/22/2023 BASIC METAB OLIC PANEL BUN 36 mg/dL 7-18 high Not Available [facility] [address] [place], [address] 10/22/2023 10:29:48 10/22/19 24 10/22/2023 BASIC METAB OLIC PANEL creatinine 1.4 mg/dL 0.55-1 .02 high Not Available [address] [place], [address] 10/22/2023 10:29:48 10/22/19 24 10/22/2023 BASIC METAB OLIC PANEL estimated GFR 40.73 mL/min /1.73m 2 Not Available [address] [place], [address] 10/22/2023 10:29:48 10/22/19 24 10/22/2023 BASIC METAB OLIC PANEL sodium 142 mmol/ L 136-14 5 normal Not Available [address] [place], [address] 10/22/2023 10:29:48 10/22/19 24 10/22/2023 BASIC METAB OLIC PANEL potassium 4.4 mmol/ L 3.5-5. 1 normal Not Available [address] [place], [address] 10/22/2023 10:29:48 10/22/19 24 10/22/2023 BASIC METAB OLIC PANEL chloride 108 mmol/ L 98-107 high Not Available [address] [place], [address] 10/22/2023 10:29:48 10/22/19 24 10/22/2023 BASIC METAB OLIC PANEL CO2 23.7 mmol/ L 21.0-3 2.0 normal Not Available [address] [place], [address] 10/22/2023 10:29:48 10/22/19 24 10/22/2023 BASIC METAB OLIC PANEL anion gap 10.3 mmol/ L 3-11 normal Not Available [address] [place], [address] 10/22/2023 10:29:48 10/22/19 24 10/22/2023 BASIC METAB OLIC PANEL calcium 9.4 mg/dL 8.5-10 .1 normal Not Available [address] [place], [address] 10/23/2023 01:23:16 10/22/19 24 10/22/2023 BASIC METAB OLIC PANEL glucose 124 mg/dL 74-106 high Not Available [facility] [address] [place], [address] 10/23/2023 01:23:16 10/22/19 24 10/22/2023 BASIC METAB OLIC PANEL BUN 36 mg/dL 7-18 high Not Available [facility] [address] [place], [address] 10/23/2023 01:23:16 10/22/19 24 10/22/2023 BASIC METAB OLIC PANEL creatinine 1.4 mg/dL 0.55-1 .02 high Not Available [address] [place], [address] 10/23/2023 01:23:16 10/22/19 24 10/22/2023 BASIC METAB OLIC PANEL estimated GFR 40.73 mL/min /1.73m 2 Not Available [address] [place], [address] 10/23/2023 01:23:16 10/22/19 24 10/22/2023 BASIC METAB OLIC PANEL sodium 142 mmol/ L 136-14 5 normal Not Available [address] [place], [address] 10/23/2023 01:23:16 10/22/19 24 10/22/2023 BASIC METAB OLIC PANEL potassium 4.4 mmol/ L 3.5-5. 1 normal Not Available [address], [address] 10/23/2023 01:23:16 10/22/19 24 10/22/2023 BASIC METAB OLIC PANEL chloride 108 mmol/ L 98-107 high Not Available [address] [place], [address] 10/23/2023 01:23:16 10/22/19 24 10/22/2023 BASIC METAB OLIC PANEL CO2 23.7 mmol/ L 21.0-3 2.0 normal Not Available [address] [place], [address] 10/23/2023 01:23:16 10/22/19 24 10/22/2023 BASIC METAB OLIC PANEL anion gap 10.3 mmol/ L 3-11 normal Not Available [address] [place], [address] 10/23/2023 01:23:16 12/03/19 24 12/03/2023 ESR ESR 16 mm/HR 0-30 normal Not Available [address] [place], [address] 12/03/2023 09:40:40 12/03/19 24 12/03/2023 HEMOG LOBIN A1C hemoglobin A1C 6.7 % <5.7 high Not Available [address] [place], [address] 12/03/2023 10:17:59 12/03/19 24 12/03/2023 VITAM IN B12 vitamin B12 1148 pg/mL 193-98 6 high Not Available [address] [place], [address] 12/03/2023 11:09:31 12/03/19 24 12/03/2023 C-KAYLEN CTIVE PROTE IN C-reactive protein 0.60 mg/dL <or=0. 5 high Not Available [address] [place], [address] 12/03/2023 11:09:32 12/03/19 24 12/04/2023 ELECT ROPHO RESIS , SERUM total protein 7.4 g/dL 6.3-8. 2 Not Available [address] [place], [address] 12/04/2023 16:51:30 12/03/19 24 12/04/2023 ELECT ROPHO RESIS , SERUM albumin 59.1 % 55.8-6 6.1 Not Available [address] [place], [address] 12/04/2023 16:51:30 12/03/19 24 12/04/2023 ELECT ROPHO RESIS , SERUM alpha 1 3.9 % 2.9-4. 9 Not Available [address] [place], [address] 12/04/2023 16:51:30 12/03/19 24 12/04/2023 ELECT ROPHO RESIS , SERUM alpha 2 8.7 % 7.1-11 .8 Not Available [address], [address] 12/04/2023 16:51:30 12/03/19 24 12/04/2023 ELECT ROPHO RESIS , SERUM beta 11.9 % 8.4-13 .1 Not Available [address], [address] 12/04/2023 16:51:30 12/03/19 24 12/04/2023 ELECT ROPHO RESIS , SERUM gamma 16.4 % 11.1-1 8.8 Not Available [address] [place], [address] 12/04/2023 16:51:30 12/03/19 24 12/04/2023 ELECT ROPHO RESIS , SERUM comment SEE BELOW Not Available [address] [place], [address] 12/04/2023 16:51:30 12/03/19 24 12/04/2023 ELECT ROPHO RESIS , SERUM albumin g/dL 4.4 g/dL 3.6-5. 2 Not Available [address], [address] 12/04/2023 16:51:30 12/03/19 24 12/04/2023 ELECT ROPHO RESIS , SERUM alpha 1 g/dL 0.30 g/dL 0.15-0 .40 Not Available [address] [place], [address] 12/04/2023 16:51:30 12/03/19 24 12/04/2023 ELECT ROPHO RESIS , SERUM alpha 2 g/dL 0.60 g/dL 0.50-1 .00 Not Available [address] [place], [address] 12/04/2023 16:51:30 12/03/19 24 12/04/2023 ELECT ROPHO RESIS , SERUM beta g/dL 0.90 g/dL 0.60-1 .20 Not Available [address], [address] 12/04/2023 16:51:30 12/03/19 24 12/04/2023 ELECT ROPHO RESIS , SERUM gamma g/dL 1.20 g/dL 0.60-1 .60 Not Available [address] [place], [address] 12/04/2023 16:51:30 12/25/19 24 12/25/2023 CREAT ININE creatinine 1.7 mg/dL 0.55-1 .02 high Not Available [address], [address] 12/25/2023 08:49:27 12/25/19 24 12/25/2023 CREAT ININE estimated GFR 32.26 mL/min /1.73m 2 Not Available [address] [place], [address] 12/25/2023 08:49:27 12/28/19 24 12/28/2023 CREAT ININE creatinine 1.5 mg/dL 0.55-1 .02 high Not Available [address] [place], [address] 12/28/2023 08:14:07 12/28/19 24 12/28/2023 CREAT ININE estimated GFR 37.49 mL/min /1.73m 2 Not Available [address] [place], [address] 12/28/2023 08:14:07 12/31/19 24 12/31/2023 HEMOG LOBIN A1C hemoglobin A1C 6.7 % <5.7 high Not Available [facility] (Registration ) [address] [place] [address] [place], [address], 12/31/2023 16:12:01 12/31/19 24 12/31/2023 COMPR EHENS CHE METAB OLIC PANEL calcium 9.2 mg/dL 8.5-10 .1 normal Not Available [address] [place], [address] 12/31/2023 16:42:08 12/31/19 24 12/31/2023 COMPR EHENS CHE METAB OLIC PANEL glucose 154 mg/dL 74-106 high Not Available [address] [place], [address] 12/31/2023 16:42:08 12/31/19 24 12/31/2023 COMPR EHENS CHE METAB OLIC PANEL BUN 49 mg/dL 7-18 high Not Available [address] [place], [address] 12/31/2023 16:42:08 12/31/19 24 12/31/2023 COMPR EHENS CHE METAB OLIC PANEL creatinine 1.6 mg/dL 0.55-1 .02 high Not Available [address], [address] 12/31/2023 16:42:08 12/31/19 24 12/31/2023 COMPR EHENS CHE METAB OLIC PANEL estimated GFR 34.70 mL/min /1.73m 2 Not Available [address] [place], [address] 12/31/2023 16:42:08 12/31/19 24 12/31/2023 COMPR EHENS CHE METAB OLIC PANEL total protein 9.9 g/dL 6.4-8. 2 high Not Available [address], [address] 12/31/2023 16:42:08 12/31/19 24 12/31/2023 COMPR EHENS CHE METAB OLIC PANEL albumin 3.6 g/dL 3.4-5. 0 normal Not Available [address], [address] 12/31/2023 16:42:08 12/31/19 24 12/31/2023 COMPR EHENS CHE METAB OLIC PANEL bilirubin, total 0.6 mg/dL 0.2-1. 0 normal Not Available [address], [address] 12/31/2023 16:42:08 12/31/19 24 12/31/2023 COMPR EHENS CHE METAB OLIC PANEL alk phos 69 U/L 46-116 normal Not Available [address] [place], [address] 12/31/2023 16:42:08 12/31/19 24 12/31/2023 COMPR EHENS CHE METAB OLIC PANEL sodium 139 mmol/ L 136-14 5 normal Not Available [address], [address] 12/31/2023 16:42:08 12/31/19 24 12/31/2023 COMPR EHENS CHE METAB OLIC PANEL potassium 4.7 mmol/ L 3.5-5. 1 normal Not Available [address] [place], [address] 12/31/2023 16:42:08 12/31/19 24 12/31/2023 COMPR EHENS CHE METAB OLIC PANEL chloride 104 mmol/ L 98-107 normal Not Available [address] [place], [address] 12/31/2023 16:42:08 12/31/19 24 12/31/2023 COMPR EHENS CHE METAB OLIC PANEL CO2 25.9 mmol/ L 21.0-3 2.0 normal Not Available [address] [place], [address] 12/31/2023 16:42:08 12/31/19 24 12/31/2023 COMPR EHENS CHE METAB OLIC PANEL anion gap 9.1 mmol/ L 3-11 normal Not Available [address], [address] 12/31/2023 16:42:08 12/31/19 24 12/31/2023 COMPR EHENS CHE METAB OLIC PANEL AST 18 U/L 15-37 normal Not Available [address] [place], [address] 12/31/2023 16:42:08 12/31/19 24 12/31/2023 COMPR EHENS CHE METAB OLIC PANEL ALT 21 U/L 14-59 normal Not Available [address] [place], [address] 12/31/2023 16:42:08 12/31/19 24 12/31/2023 NT-MN OBNP nt-probnp 699 pg/mL <300 high Not Available [address] [place], [address] 12/31/2023 16:24:06 12/31/19 24 12/31/2023 LIPID 2 cholesterol 201 mg/dL <200 high Not Available [facility] (Registration ) [address] [place] [address] [place], [address], 12/31/2023 16:42:09 12/31/19 24 12/31/2023 LIPID 2 triglyceride 461 mg/dL <150 high Not Available [facility] (Registration ) [address] [place] [address] [place], [address], 12/31/2023 16:42:09 12/31/19 24 12/31/2023 LIPID 2 HDL cholesterol 30 mg/dL 40-60 low Not Available [facility] (Registration ) [address] [place] [address] [place], [address], 12/31/2023 16:42:09 12/31/19 24 12/31/2023 LIPID 2 calculated LDL TNP mg/dL <100 Not Available [facility] (Registration ) [address] [place] [address] [place], [address], 12/31/2023 16:42:09 12/31/19 24 12/31/2023 NT-MN OBNP nt-probnp 699 pg/mL <300 high Not Available [facility] (Registration ) [address] [place] [address] [place], [address], 12/31/2023 16:42:09 12/31/19 24 12/31/2023 LIPID 2 cholesterol 201 mg/dL <200 high Not Available [facility] (Registration ) [address] [place] [address] [place], [address], 12/31/2023 17:32:17 12/31/19 24 12/31/2023 LIPID 2 triglyceride 461 mg/dL <150 high Not Available [facility] (Registration ) [address] [place] [address] [place], [address], 12/31/2023 17:32:17 12/31/19 24 12/31/2023 LIPID 2 HDL cholesterol 30 mg/dL 40-60 low Not Available [facility] (Registration ) [address] [place] [address] [place], [address], 12/31/2023 17:32:17 12/31/19 24 12/31/2023 LIPID 2 calculated LDL TNP mg/dL <100 Not Available [facility] (Registration ) [address] [place] [address] [place], [address], 12/31/2023 17:32:17 12/31/19 24 12/31/2023 DIREC T LDL CHOL direct LDL chol 107 mg/dL <100 high Not Available [address], [address] 12/31/2023 17:32:17 12/31/19 24 12/31/2023 NT-MN OBNP nt-probnp 699 pg/mL <300 high Not Available [facility] (Registration ) [address] [place] [address] [place], [address], 12/31/2023 17:32:18 03/21/20 24 03/21/2024 CREAT ININE creatinine 1.5 mg/dL 0.55-1 .02 high Not Available [address] [place], [address] 03/21/2024 09:02:12 03/21/20 24 03/21/2024 CREAT ININE estimated GFR 37.49 mL/min /1.73m 2 Not Available [address] [place], [address] 03/21/2024 09:02:12 03/26/2003/26/2024 CREAT ININE creatinine 1.5 mg/dL 0.55-1 .02 high Not Available [address], [address] 03/26/2024 08:18:42 03/26/2003/26/2024 CREAT ININE estimated GFR 37.49 mL/min /1.73m 2 Not Available [address] [place], [address] 03/26/2024 08:18:42 04/09/2004/09/2024 MICRO ALBUM IN microalbumin 15.0 mg/L 1.30-2 0.0 normal Not Available [facility] (Registration ) [address] [place] [address] [place], [address], 04/09/2024 17:01:15 04/09/20 24 04/09/2024 MICRO ALBUM IN creatinine urine 67.72 mg/dL Not Available [facility] (Registration ) [address] [place] [address] [place], [address], 04/09/2024 17:01:15 04/09/20 24 04/09/2024 MICRO ALBUM IN microalb ug/mg crea 22.2 ug/mg _cr Not Available [facility] (Registration ) [address] [place] [address] [place], [address], 04/09/2024 17:01:15 04/09/20 24 04/09/2024 hemog lobin A1C, finge rstic k hemoglobin A1C 5.8 % <5.7 Not Available [address] , [place], [address], 04/09/2024 09:19:17 05/12/2005/12/2024 COMPL ETE BLOOD COUNT W/DIF F WBC 6.19 10_3/ uL 4.4-10 .8 normal Not Available [address], [address] 05/12/2024 11:12:33 05/12/20 24 05/12/2024 COMPL ETE BLOOD COUNT W/DIF F RBC 4.99 10_6/ uL 3.93-5 .22 normal Not Available [address] [place], [address] 05/12/2024 11:12:33 05/12/20 24 05/12/2024 COMPL ETE BLOOD COUNT W/DIF F HGB 15.0 g/dL 11.2-1 5.7 normal Not Available [address] [place], [address] 05/12/2024 11:12:33 05/12/20 24 05/12/2024 COMPL ETE BLOOD COUNT W/DIF F HCT 46.3 % 36.0-4 6.0 high Not Available [address] [place], [address] 05/12/2024 11:12:33 05/12/20 24 05/12/2024 COMPL ETE BLOOD COUNT W/DIF F MCV 93 fL 80-95 normal Not Available [address] [place], [address] 05/12/2024 11:12:33 05/12/20 24 05/12/2024 COMPL ETE BLOOD COUNT W/DIF F MCH 30.1 pg 27.0-3 3.0 normal Not Available [address] [place], [address] 05/12/2024 11:12:33 05/12/20 24 05/12/2024 COMPL ETE BLOOD COUNT W/DIF F MCHC 32.4 % 32.0-3 6.0 normal Not Available [address] [place], [address] 05/12/2024 11:12:33 05/12/20 24 05/12/2024 COMPL ETE BLOOD COUNT W/DIF F RDW 13.9 % 11.7-1 4.6 normal Not Available [address] [place], [address] 05/12/2024 11:12:33 05/12/20 24 05/12/2024 COMPL ETE BLOOD COUNT W/DIF F platelet count 188 10_3/ uL 130-40 0 normal Not Available [address] [place], [address] 05/12/2024 11:12:33 05/12/20 24 05/12/2024 COMPL ETE BLOOD COUNT W/DIF F MPV 10.0 fL 8.0-11 .0 normal Not Available [address] [place], [address] 05/12/2024 11:12:33 05/12/20 24 05/12/2024 COMPL ETE BLOOD COUNT W/DIF F neutrophils % 65.3 % Not Available [address] [place], [address] 05/12/2024 11:12:33 05/12/20 24 05/12/2024 COMPL ETE BLOOD COUNT W/DIF F lymphocytes % 22.3 % Not Available [address] [place], [address] 05/12/2024 11:12:33 05/12/20 24 05/12/2024 COMPL ETE BLOOD COUNT W/DIF F monocytes % 9.2 % Not Available [address] [place], [address] 05/12/2024 11:12:33 05/12/20 24 05/12/2024 COMPL ETE BLOOD COUNT W/DIF F eosinophils % 1.9 % Not Available [address] [place], [address] 05/12/2024 11:12:33 05/12/20 24 05/12/2024 COMPL ETE BLOOD COUNT W/DIF F basophils % 1.1 % Not Available [address] [place], [address] 05/12/2024 11:12:33 05/12/20 24 05/12/2024 COMPL ETE BLOOD COUNT W/DIF F immature grans % 0.2 % Not Available [address] [place], [address] 05/12/2024 11:12:33 05/12/20 24 05/12/2024 COMPL ETE BLOOD COUNT W/DIF F nucleated RBC 0.0 % 0.0-0. 3 normal Not Available [address] [place], [address] 05/12/2024 11:12:33 05/12/20 24 05/12/2024 COMPL ETE BLOOD COUNT W/DIF F absolute neutrophil count 4.04 10_3/ uL 1.2-6. 7 normal Not Available [address] [place], [address] 05/12/2024 11:12:33 05/12/20 24 05/12/2024 COMPL ETE BLOOD COUNT W/DIF F absolute lymphocyte count 1.38 10_3/ uL 1.2-3. 4 normal Not Available [address] [place], [address] 05/12/2024 11:12:33 05/12/20 24 05/12/2024 COMPL ETE BLOOD COUNT W/DIF F absolute monocyte count 0.57 10_3/ uL 0.1-0. 8 normal Not Available [address] [place], [address] 05/12/2024 11:12:33 05/12/20 24 05/12/2024 COMPL ETE BLOOD COUNT W/DIF F absolute eosinophil count 0.12 10_3/ uL 0.0-0. 7 normal Not Available [address] [place], [address] 05/12/2024 11:12:33 05/12/20 24 05/12/2024 COMPL ETE BLOOD COUNT W/DIF F absolute basophil count 0.07 10_3/ uL 0.0-0. 2 normal Not Available [address] [place], [address] 05/12/2024 11:12:33 05/12/20 24 05/12/2024 COMPR EHENS CHE METAB OLIC PANEL calcium 9.9 mg/dL 8.5-10 .1 normal Not Available [address] [place], [address] 05/12/2024 11:42:49 05/12/2005/12/2024 COMPR EHENS CHE METAB OLIC PANEL glucose 76 mg/dL 74-106 normal Not Available [address] [place], [address] 05/12/2024 11:42:49 05/12/20 24 05/12/2024 COMPR EHENS CHE METAB OLIC PANEL BUN 28 mg/dL 7-18 high Not Available [address] [place], [address] 05/12/2024 11:42:49 05/12/2005/12/2024 COMPR EHENS CHE METAB OLIC PANEL creatinine 1.4 mg/dL 0.55-1 .02 high Not Available [address] [place], [address] 05/12/2024 11:42:49 05/12/2005/12/2024 COMPR EHENS CHE METAB OLIC PANEL estimated GFR 40.47 mL/min /1.73m 2 Not Available [address] [place], [address] 05/12/2024 11:42:49 05/12/20 24 05/12/2024 COMPR EHENS CHE METAB OLIC PANEL total protein 8.1 g/dL 6.4-8. 2 normal Not Available [address] [place], [address] 05/12/2024 11:42:49 05/12/2005/12/2024 COMPR EHENS CHE METAB OLIC PANEL albumin 3.9 g/dL 3.4-5. 0 normal Not Available [address] [place], [address] 05/12/2024 11:42:49 05/12/2005/12/2024 COMPR EHENS CHE METAB OLIC PANEL bilirubin, total 0.79 mg/dL 0.2-1. 0 normal Not Available [address] [place], [address] 05/12/2024 11:42:49 05/12/20 24 05/12/2024 COMPR EHENS CHE METAB OLIC PANEL alk phos 86 U/L 46-116 normal Not Available [address] [place], [address] 05/12/2024 11:42:49 05/12/20 24 05/12/2024 COMPR EHENS CHE METAB OLIC PANEL sodium 142 mmol/ L 136-14 5 normal Not Available [address], [address] 05/12/2024 11:42:49 05/12/20 24 05/12/2024 COMPR EHENS CHE METAB OLIC PANEL potassium 4.6 mmol/ L 3.5-5. 1 normal Not Available [address] [place], [address] 05/12/2024 11:42:49 05/12/20 24 05/12/2024 COMPR EHENS CHE METAB OLIC PANEL chloride 107 mmol/ L 98-107 normal Not Available [address] [place], [address] 05/12/2024 11:42:49 05/12/20 24 05/12/2024 COMPR EHENS CHE METAB OLIC PANEL CO2 27.1 mmol/ L 21.0-3 2.0 normal Not Available [address] [place], [address] 05/12/2024 11:42:49 05/12/20 24 05/12/2024 COMPR EHENS CHE METAB OLIC PANEL anion gap 7.9 mmol/ L 3-11 normal Not Available [address] [place], [address] 05/12/2024 11:42:49 05/12/20 24 05/12/2024 COMPR EHENS CHE METAB OLIC PANEL AST 23 U/L 15-37 normal Not Available [address] [place], [address] 05/12/2024 11:42:49 05/12/2005/12/2024 COMPR EHENS CHE METAB OLIC PANEL ALT 36 U/L 14-59 normal Not Available [address] [place], [address] 05/12/2024 11:42:49 08/02/20 23 07/30/2023 physi nathanael thera py* PT TREATM ENT NOTE DAMARIS Torres NAME: Carlos Multani UNIT #: [id number] ADMITT ING PROVID ER: 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 ATE OF ADMIT: : 1954 Date of servic e: Time of Servic e: 16:22 PT Notes Visit Reason s: Sepsis with shock, Right pneumo landry, UTI Inpati ent Physic al Therap y Treatm ent Note Maikol Mccray, PT Associ ates Date: PRECAU TIONS: Fall, standa rd, activi ty as tolera maycol. SUBJEC TIVE: Damaris torres report s slowl y gisell joshi better . OBJECT CHE: Sidely ing in bed, agreea ble to therap y. ? PAIN: none report ed VITALS : Closel y monito red by cora joshi staff via teleme try. ? BED MOBILI TY/TRA NSFERS ? Duglas joshi L/R: Indepe ndent Supine -sit: Indepe ndent ? Sit-lopes pine: Indepe ndent ? Sit-st and: SBA ? Stand- sit: SBA ? Bed-Ch air: SBA ? Chair- bed: SBA Gait Traini ng ([phone]): Direct one-on -one instru ction and skille d instru ction in: [] employ ing an assist che device [] modifi ed weight -beari ng status [x] moveme nt sequen cing [] turnin g and moveme nt with proper form [] Provid ed verbal cues for equipm ent manage ment and techni que [] Provid ed instru ction in gait patter n [x] Patien t educat ion regard ing pacing and breath ing techni ques to maximi ze activi ty tolera nce? GAIT? Assist che Device : none? Weight bearin g: full Assist : SBA ? Distan ce:??? 250 feet ? Deviat ion: no arm swing noted, some path deviat ion, minor LOB x1 which damaris torres was able to recove r indepe ndentl y. ? STAIRS : ascend s and descen ds 4 six inch stairs and 6 four inch stairs with CGA and bilate ral rails, step throug h gait patter n.? ASSESS MENT:? ?? Damaris torres tolera iván therap y well, vitals stay WNL, no report s of pain, fatigu e, or dyspne a at close of treatm ent sessio n. PLAN: Contin ue global streng thenkirstin g per plan of care until damaris torres is medica emely ennis for discha rge. TREATM ENT CODE/T EDVIN: 13 minute s beginn ing at 16:22 CC: ------ ------ ------ ------ ------ ------ ------ ------ ------ ------ ------ --- Dictat ed by: Bc Yanez, DEMOLITION HAMMER OPERATOR Dictat ed: Time: 1636 Date: Time: 1641 Transc ribed Date: Transc ribed Time: 163 By: PTHARJEET Benavides This is privil eged, confid ential inform ation, intend ed only for the provid er named. Any use or distri bution by any person other than this provid er is strict ly prohib ited. If you receiv e this report in error, please notify us immedi ately at and return the origin al report to us at the addres s above. Thank you. [email or web address] [facility] [address] [place] [place], [address] 08/03/2023 08:11:54 01/08/20 24 07/29/2023 CT, chest + abdom en + pelvi s, w/o contr ast Patien t Name: Carlos Multani Unit #: [id number] Loc: [place] [facility] Provid er: Annettebrian on,Paul wna NET REPAIRER Accoun t #: [id number] Status : DIS IN Primar y Care Provid er: Sammie Cordero M.D. Date of Exam: 08/09 Sex: F : 1954 Age: 68 Exam(s ) a CT:CT chest/ abd/pe l wo Addend a: Exam(s ) CT CHEST/ ABD/PE L WO ADDEND UM: The images were review ed. I agree with the nathanael gs and impres jose below. Dictat ed By: Federico Vora [id number] Federico Vora 0732 Transc ribed By: Iman Brunner [id number] Exam(s ) CT CHEST/ ABD/PE L WO EXAM: CT CHEST/ ABD/PE L WO CLINIC AL HISTOR Y: Vomiti ng, Diarrh ea, fever. TECHNI QUE: Imagin g Protoc ol: Axial comput ed tomogr aphy images with tobin l and sagitt al reform atted images were create d and review ed CONTRA ST MATERI AL: Intrav enous: none Oral: None COMPAR MICHAEL: CT CT CHEST/ ABD/PE L WO from 2018 FINDIN GS: CHEST: LUNGS: There is a promin ent area of infilt rate in the right upper lobe extend ing from the apex down into the band singer ior segmen t and exhibi ting multip le air bronch ograms . There is also a signif icant area of pleura l based infilt rate in the right lower lobe medial ly parasp inal measur ing 3.2 x 2.5 cm, also exhibi ting air bronch ograms and also not previo usly presen t on the 2019 CT study. There is no pleura l effusi on. In the opposi te-lef t lung there is an unchan ged nodula r densit y in the superi or lingul ar segmen t which measur es 2.0 by 1.7 cm, unchan ged. There is also a small subple ural nodule measur ing 3 mm in the latera l basal segmen t of the left lower lobe which has slight ly decrea sed in size from 2019. No new left lung nodule s. There are no pleura l effusi ons on either side. No signif icant findin gs in the trache a and mainst em bronch i. No bronch iectas is eviden t. MEDIAS TINUM: No obviou s hilar nor medias tinal adenop athy. Small calcif icatio ns noted in the anteri or aspect of the left thyroi d lobe.C annot determ ine if this is within a nodule . CARDIA C: Heart size normal . Minima l thicke misty of the perica rdium is unchan ged. No promin ent perica rdial effusi on.Nathanael iber of the thorac ic aorta is within normal limits . OSSEOU S: No signif icant osseou s lesion s.. ABDOME N: There is no ascite s. LIVER: Mildly promin ent. Mild steato sis. No discre te focal hepati c lesion s eviden t on this non few study. GALLBL ADDER/ BILIAR Y: There is a 1.2 x 1.1 cm gallst one noted. Was previo usly in the fundus and now is in the gallbl adder neck region . Gallbl adder is not disten ded nor obviou sly edemat ous. CBD is not dilate d. PANCRE : No eviden ce of obviou s pancre atic mass nor dilata tion of the pancre atic duct. SPLEEN : Spleno megaly again noted. Cephal ocauda l spleen size is 14.5 cm. No new obviou s intras plenic masses seen on this non infuse d CT study. ADRENA LS: There are no new signif icant adrena l masses . Slight thicke misty of the left adrena l gland is unchan ged. KIDNEY S: There is perine phric streak ing now eviden t. Slight ly more promin ent around the right kidney . No other right kidney findin gs. No calcul i. No hydron ephros is nor hydrou reter. There is a cystic struct ure in the latera l cortex of the opposi te-lef t kidney measur ing 1.3 x 1.3 cm which was not eviden t on the prior 2019 study. Diffic ult to assess withou t IV contra st. No calcul i nor hydron ephros is on either side. No hydrou reter. No new findin gs in the urinar y bladde r. ABDOMI NAL AORTA: Abdomi nal aorta is not enlarg ed. LYMPH NODES: There is no retrop eriton eal nor para-a ortic adenop athy. ABDOMI NAL WALL/G I: There is a fat only contai misty midlin e suprau mbilic al hernia . There is a well-d efined fat densit y mass in the wall of the cecum which measur es 6 cm by 4 cm by 3.6 cm, simila r to previo us study. PELVIS : LYMPH NODES: There is no intrap elvic nor inguin al adenop athy. GI: Append ix cannot be identi fied as a separa te struct ure. The fatty lesion may be of append ix origin .There are scatte red sigmoi d divert iculi withou t eviden ce of acute divert iculit is. Sigmoi d is redund ant and extend s into the right- side of the abdome n.Ther e are sigmoi d divert iculi. No eviden ce of acute divert iculit is. URINAR Y BLADDE R: No calcul i nor obviou s masses eviden t REPROD UCTIVE : Uterus size upper normal . Ovarie s are diffic ult to identi fy separa te struct ures. OSSEOU S: No signif icant osseou s lesion s. No fractu res. Multil evel degene rative disc diseas e chroni c disc space narrow ing at L3-4 and L5-S1 levels . IMPRES JOSE: 1. Compar ed to prior CT scan of December 2018 there is now new promin ent non cavita maycol infilt rate in the right upper lobe as well as anothe r area of infilt rate in the medial aspect of the right lower lobe, not associ ated with pleura l effusi ons. Also no obviou s associ ated adenop athy. A 2.0 x 1.7 cm noncal cified nodule in the left lung lingul ar segmen t is unchan ged. No new left lung infilt rates. No pleura l effusi ons.. 2. No intrat horaci c or axilla ry adenop athy. 3. Spleno megaly noted with cephal ocauda l measur ement of the spleen being 14.5 cm 4. there is a 1.3 x 1.3 cm cystic struct ure in the left kidney which was not previo usly presen t. Diffic ult to assess withou t IV contra st there is bilate ral perine phric streak ing which was also not eviden t in 2019. No calcul i nor hydron ephros is. No hydrou reter. No calcul i eviden t in the urinar y bladde r. 5. Again noted is a well-d efined 6 x 4 x 3.6 simila r fatty lesion in the wall of the cecum again noted, simila r in size to previo us. This is immedi ately adjace nt to the ileoce nathanael valve. The append ix again cannot be identi fied as a separa te struct ure. There are no surgic al clips in this region . Sigmoi d divert iculi withou t eviden ce of acute divert iculit is. Cholel ithias is again noted. No eviden ce of acute cholec ystiti s nor dilata tion of the biliar y tree. Other findin gs as above. RADIAT ION DOSE DELIVE RED: Total DLP DATA REPOSI TORY: All CT scans at this facili ty are submit maycol to the Nation al Radiol ogy Data Regist ry (NRDR) Dose Index Regist ry (DIR) with the [employer] (ACR). RADIAT ION OPTIMI ZATION : [facility] use at least one of these dose optimi zation techni ques: automa maycol exposu re contro l; mA and/or kV adjust ment per patien t size (inclu candida target ed exams where dose is matche d to clinic al indica tion); or iterat che recons tructi on. 1111-0 008: Total DLP = 0.00 mGy-cm Ordere d By: Paul Van NET REPAIRER CC: ------ ------ ------ ------ ------ ------ ------ ------ ------ ------ ------ ------ ---- Dictat ed By: Gagandeep Morris M.D. 1450 1450 Transc ribed By: Alexandra ZELAYA,Marshall garnica 145 This is privil eged, confid ential inform ation intend ed only for the provid er named. Any use or distri bution by any person other than this provid er is strict ly prohib ited. If you receiv e this report in error, please notify us immedi ately at [phone] and return the origin al report to us at the addres s above. Thank- you. [email or web address] [facility] [address] [place] [place], [address] 01/08/2024 18:53:23 04/16/20 24 04/16/2024 ultra sound imagi ng repor t Patien t Name: Carlos Multani Unit #: [id number] Loc: DI Orderi ng Provid er: Sammie Cordero M.D. Accoun t #: [id number] Status : REG CLI Primar y Care Provid er: Sammie Cordero M.D. Date of Exam: Sex: F Admiss ion Date: : 1954 Age: 69 Exam(s ) US THYROI D EXAM: US THYROI D CLINIC AL HISTOR Y: THYROI D NODULE ,E04.1 ,THYRO ID NOTED ON PET SCAN DONE AT [facility]. TECHNI QUE: Ultras ound thyroi d perfor med using standa rd protoc ol. COMPAR MICHAEL: CT CT CHEST/ ABD/PE L WO from 2018 FINDIN GS: ISTHMU S: 8 mm. Nodule measur ing 1.0 x 1.1 x 1.2 cm, low echo solid, ill-de fined margin s, macroc alcifi cation . Wider than tall, TR 5, FNA recomm ended. RIGHT LOBE: Size: 5.9 x 1.5 x 1.6 cm Echoge nicity : Normal . Vascul arity: Normal . Nodule s: None. LEFT LOBE: Size: 4.7 x 1.7 x 1.3 cm Echoge nicity : Normal . Vascul arity: Normal . Nodule s: Coarse calcif icatio n seen near the upper pole with shadow ing measur ing 7 millim eters. Additi onal coarse calcif icatio n seen in the mid thyroi d causin g shadow ing. OTHER FINDIN GS: None. IMPRES JOSE: 1.2 centim eter solid nodule in the isthmu s corres pondin g to the active lesion on PET CT. TI-RAD S 5. FNA recomm ended. DATA REPOSI TORY: Tammy ennis By: Sammie Cordero M.D. CC: ------ ------ ------ ------ ------ ------ ------ ------ ------ ------ ------ ------ - Dictat ed By: Federico Vora 1306 1306 Transc ribed By: Iman Brunner 1306 This is privil eged, confid ential inform ation intend ed only for the provid er named. Any use or distri bution by any person other than this provid er is strict ly prohib ited. If you receiv e this report in error, please notify us immedi ately at and return the origin al report to us at the addres s above. Thank- you. [facility] [address] , [place], [address] 04/22/2024 12:53:16 Result Notes None recorded. Problems Name Status Onset Date Resolution Date Notes Provider Name and Address Organization Details Recorded Time Atrial fibrillation Active 2018 ALCIDES santos [facility]. 4 08:29:03 Essential hypertension Active 2018 ALCIDES santos [facility] 4 08:29:39 Sarcoidosis Active 2018 ALCIDES santos [facility] 4 08:31:39 Cardiomyopath y Completed 201806/25/2023 Problem Code: I42.9; Problem Code Type: ICD-10; Not Available [facility] 4 05:37:34 Adult health examination Active [address] [facility]. 4 08:28:58 Chronic kidney disease stage 3 Active 2018 [address] MD [address], [place], [address] , [facility]. 4 09:45:30 Impacted cerumen of bilateral ears Completed 201809/29/2019 09/15/2019 - Comments only - Sammie Cordero MD - flushed today by nursing. Problem Code: H61.23; Problem Code Type: ICD-10; Not Available [facility] 3 05:11:19 Acute upper respiratory infection Completed 201809/29/2019 09/15/2019 - Comments only - Sammie Cordero MD - seen few days ago by coil cutter and given steroid and underlying sarcoid, treated with rosalia kinney. Problem Code: J06.9; Problem Code Type: ICD-10; Not Available [facility] 3 05:11:19 Prediabetes Completed 201901/07/[address], [facility] [address] , [facility] 4 10:13:33 Screening for malignant neoplasm of colon Completed 201906/13/2023 Problem Code: Z12.11; Problem Code Type: ICD-10; Not Available [facility] 3 05:11:19 Pure hyperglycerid emia Completed 201901/07/[address], [facility] [address] , [facility] 4 10:47:17 Menopause present Completed 201906/21/2020 Problem Code: Z78.0; Problem Code Type: ICD-10; Not Available [facility] 3 05:11:19 Skin sensation disturbance Active 2019 ALCIDES santos, [facility] 4 08:32:50 Carpal tunnel syndrome Active [address], [facility] [address] , [facility] 4 09:45:15 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 ALCIDES santos, [facility] 4 08:30:35 Vitamin D deficiency Active 2020 ALCIDES santos, [facility] 4 08:32:54 Screening for malignant neoplasm of breast Completed 202112/31/[address], [facility] [address] , [facility] 4 17:44:34 Pain of left shoulder joint Active [address], [place], [address] , [facility] 4 17:44:29 Breast composition Completed 202106/25/2023 06/12/2022 - Comments only - Sammie Cordero MD - has follow up mammogram scheduled next month Not Available [facility] 4 05:37:34 Dyspnea Completed 202108/28/2023 Problem Code: R06.09; Problem Code Type: ICD-10; Not Available [facility] 4 05:37:34 Glaucoma Active 2022 ALCIDES santos, [facility] 4 08:29:46 Cataract Active [address], [place], [address] , [facility] 4 09:49:16 Hyperlipidemi a Completed 201806/07/2020 Problem Code: E78.5; Problem Code Type: ICD-10; Not Available [facility] 3 05:11:21 Long-term current use of systemic steroid Completed 201906/07/2020 Problem Code: Z79.52; Problem Code Type: ICD-10; Not Available [facility] 3 05:11:21 Cellulitis of toe Completed 202101/01/2023 Problem Code: L03.039; Problem Code Type: ICD-10; Not Available [facility] 3 05:11:21 Renal failure syndrome Completed 201809/15/2019 Problem Code: N19; Problem Code Type: ICD-10; Not Available [facility] 3 05:11:21 Hypercalcemia Completed 201809/15/2019 Problem Code: E83.52; Problem Code Type: ICD-10; Not Available [facility] 3 05:11:21 Hyperglycemia Completed 201809/15/2019 12/11/2019 - Comments only - Sammie Cordero MD - on several labs, unclear if fasting, will do fasting glucose and A1C prior to next visit. Problem Code: R73.9; Problem Code Type: ICD-10; Not Available [facility] 3 05:11:22 Pulmonary hypertension Active 2022 ALCIDES santos, [facility] 4 08:31:14 Oophorectomy Active [address] Right. 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 Followed by Dr. Taylor, [facility] MD [address], [place], [address] , [facility] 4 10:07:41 Type 2 diabetes mellitus Active [address], [place], [address] , [facility] 4 10:13:44 Mixed hyperlipidemi a Active 2023 Elevated TG, with DM, CV10 rises to 11.8% MD [address], [place], [address] , [facility] 4 10:48:00 Obesity Active [address], [place], [address] , [facility] 4 13:03:43 Problem Notes None recorded. Procedures Surgical History None recorded. Imaging Results Imaging Date Name Status LastModified by Organiz ation Details LastModified Time 07/30/2023 physical therapy* completed [address] [place], [address] 08/03/2023 08:11:54 07/29/2023 CT, chest + abdomen + pelvis, w/o contrast completed [address] [place], [address] 01/08/2024 18:53:23 04/16/2024 ultrasound imaging report completed [address] [place], [address] 04/22/2024 12:53:16 Procedure Notes None recorded. Medical Equipment None Reported. Allergies Allergen ID Allergen Name Allergen Category Reaction Reaction Severity Criticality Documentation Date Start Date Code Code System Note Provider Name and Address Organization Details Recorded Time 91155 ethinyl estradiol / levonorge strel medicatio n Not available Not available low 08/17/2023 24234 8 RxNorm KEYLA PATEL, [facility] 3 09:56:43 Medications Name Sig Start Date Stop Date Status Note LastModified by Organization Details LastModified Time latanopro st 0.005 % eye drops active Not Available Not Available Not Available atorvasta tin 20 mg tablet take 1 tablet by mouth once daily active Not Available Not Available No t Available Vitamin C 500 mg tablet once a day 2018 active Not Available Not Available Not Avai lable metoprolo l succinate ER 200 mg tablet,ex tended release 24 hr take 1 tablet by mouth once daily active Not Available Not Available No t Available lisinopri l 20 mg tablet Take 1 tab by mouth daily [address] Tyler Not Available Not Available Not Available alendrona te 70 mg tablet TAKE 1 TABLET BY MOUTH ONCE A WEEK DIRECTED 08/17 completed Not Available Not Available Not Available metoprolo l succinate ER 100 mg tablet,ex tended release 24 hr take 1 AND 1/2 tablet by mouth at bedtime 08/17 completed Not Available Not Available Not Available prednison e 5 mg tablet Take 1 by mouth daily 06/07 completed Not Available Not Available Not Available thiamine HCl (vitamin B1) 100 mg tablet Take 1 by mouth daily 2018 active Not Available Not Available Not Avai lable Cardizem CD 180 mg capsule,e xtended release Take 1 capsule by mouth once a day 11/03 completed Not Available Not Available Not Available doxycycli ne monohydra te 100 mg tablet Take 1 tablet by mouth twice a day 11/08 completed Not Available Not Available Not Available spironola ctone 25 mg tablet take 1 tablet by mouth once daily active Not Available Not Available No t Available garlic 500 mg tablet 1 po daily 2019 active Not Available Not Available Not Avai lable cephalexi n 500 mg capsule Take 1 capsule by mouth three times a day 06/19 completed Not Available Not Available Not Available lisinopri l 10 mg tablet Take 1 tablet by mouth once a day 06/12 completed Not Available Not Available Not Available furosemid e 20 mg tablet take 1 tablet by mouth once daily active Not Available Not Available No t Available ergocalci ferol (vitamin D2) 1,250 mcg (50,000 unit) capsule Take 1 capsule once a week 05/03 completed Not Available Not Available Not Available levofloxa cherry 750 mg tablet take 1 tablet by mouth once daily 01/06 completed Not Available Not Available Not Available timolol maleate 0.5 % eye drops active Not Available Not Available Not Available ondansetr on 4 mg disintegr ating tablet Take 1 tablet on tongue every six hours as needed As needed for nausea/v omiting 07/30 completed Not Available Not Available Not Available calcitrio l 0.25 mcg capsule take 1 capsule by mouth 3 TIMES A WEEK active Not Available Not Available No t Available Vitamin B-12 1,000 mcg tablet 1 tab daily 12/06 completed Not Available Not Available Not Available Fish Oil 1,000 mg capsule take 1 daily 2019 active Not Available Not Available Not Avai lable Fish Oil 340 mg-1,000 mg capsule Take once a day 2019 active Not Available Not Available Not Avai lable Vitamin D3 50 mcg (2,000 unit) tablet Take 1 tablet by mouth once a day 10/30 completed Not Available Not Available Not Available vitamin E (dl, acetate) 180 mg (400 unit) capsule 1 tab daily 2018 active Not Available Not Available Not Avai lable thiamine mononitra te (vitamin B1) 100 mg tablet Take 1 by mouth once a day 2018 active Not Available Not Available Not Avai lable Lumigan 0.01 % eye drops instill 1 drop into both eyes every evening as directed 08/17 completed Not Available Not Available Not Available Vitamin D3 50 mcg (2,000 unit) capsule TAKE 1 CAPSULE BY MOUTH ONCE DAILY. active Not Available Not Available No t Available Eliquis 5 mg tablet take 1 tablet by mouth twice a day active Not Available Not Available No t Available Eliquis 2.5 mg tablet Take 1 tab by mouth twice a day 2018 active Not Available Not Available Not Avai lable Farxiga 10 mg tablet take 1 tablet by mouth once daily active Not Available Not Available No t Available Jardiance 10 mg tablet Take 1 tablet by mouth once a day 01/24 completed Not Available Not Available Not Available One Daily Multivita min with Iron (folic acid) 18 mg-400 mcg tablet 1 daily 2019 active Not Available Not Available Not Avai lable Entresto 97 mg-103 mg tablet take 1 tablet by mouth twice a day active Not Available Not Available No t Available Entresto 49 mg-51 mg tablet take 1 tablet by mouth twice a day 08/31 completed Not Available Not Available Not Available Entresto 24 mg-26 mg tablet 1 tab bid 11/[address] Tyler Changed 05/28/20 20 Not Available Not Available Not Available Ozempic 1 mg/dose (4 mg/3 mL) subcutane ous pen injector inject 1 milligra m subcutan eously ONCE EVERY WEEK active Not Available Not Available No t Available Ozempic 0.25 mg or 0.5 mg (2 mg/3 mL) subcutane ous pen injector inject 0.25 milligra m subcutan eously ONCE A WEEK for 4 doses then INCREASE to 0.5 milligra m weekly 04/09 completed titrate dose up Not Available Not Available Not Available Vitals Date Recorded Body height Body mass index (BMI) Body weight Body temperature Oxygen saturation Oxygen saturation in Arterial blood by Pulse oximetry Heart rate Systolic blood pressure Diastolic blood pressure Provider Name and Address Organization Details Last Updated DateTime 3 171.196 cm 31.7 kg/m2 61242.4 4 g 97.7 [degF] 99 % 99 % 62 /min 122 mm[Hg] 70 mm[Hg] STEFFI MATOS MA [facility] 3 09:56:25 Date Recorded Body height Body mass index (BMI) Body weight Body temperature Respiratory rate Heart rate Systolic blood pressure Diastolic blood pressure Provider Name and Address Organization Details Last Updated DateTime 4 171.2 cm 32 kg/m2 42236.6 2 g 97.9 [degF] 16 /min 60 /min 120 mm[Hg] 70 mm[Hg] DANDY GARCIA LPN [facility] 4 10:03:04 Date Recorded Body height Body mass index (BMI) Body weight Body temperature Oxygen saturation Oxygen saturation in Arterial blood by Pulse oximetry Heart rate Respiratory rate Systolic blood pressure Diastolic blood pressure Provider Name and Address Organization Details Last Updated DateTime 4 171.2 cm 32.2 kg/m2 40045.2 1 g 97.7 [degF] 99 % 99 % 76 /min 16 /min 114 mm[Hg] 72 mm[Hg] DANDY GARCIA LPN [facility] 4 09:10:27 Social History Question Answer Notes LastModified by Organizat ion Details LastModified Time Tobacco Smoking Status Never Smoker DANDY GARCIA LPN [facility] 01/07/2024 10:03:16 Would You Say That, In General, Your Health Is Good Information not available 01/07/2024 How Often Does Anyone, Including Family, Physically Hurt You? Never Information not available 01/07/2024 How Often Does Anyone, Including Family, Insult Or Talk Down To You? Never Information no t available 01/07/2024 How Often Does Anyone, Including Family, Threaten You With Harm? Never Information not available 01/07/2024 Within The Past 12 Months, You Worried That Your Food Would Run Out Before You Got Money To Buy More. Never True Information n ot available 01/07/2024 Within The Past 12 Months, The Food You Bought Just Didn't Last And You Didn't Have Money To Get More. Never True Information not available 01/07/2024 How Hard Is It For You To Pay For The Very Basics Like Food, Housing, Medical Care, And Heating? Would You Say It Is: Not Hard At All Information not available 01/07/2024 In The Past 12 Months, Has Lack Of Reliable Transportation Kept You From Medical Appointments, Meetings, Work Or From Getting Things Needed For Daily Living? No Information not available 01/07/2024 What Is Your Housing Situation Today? I Have Housing. Information not available 01/07/2024 How Often In The Past Year Have You Used Marijuana (including Smoking, Vaping, Dabbing, Or Edibles)? Never Information not available 01/07/2024 How Often In The Past Year Have You Used Prescription Medications That Were Not Prescribed To You? Never Information not available 01/07/2024 How Often In The Past Year Have You Taken Your Own Prescription Medication More Than The Way It Was Prescribed Or For Different Reasons Than Its Intended Purpose? Never Information not available 01/07/2024 How Often In The Past Year Have You Used Other Drugs (for Example, Heroin, Cocaine, Meth, Salvia, Inhalants)? Never Information not available 01/07/2024 Have You Ever Used IV Drugs? No Information not available 01/07/2024 Date Of Most Recent SBINS 01/07/2024 Information not available 01/07/2024 What Was The Date Of Your Most Recent Tobacco Screening? 04/09/2024 Information n ot available 04/09/2024 Has Tobacco Cessation Counseling Been Provided? No Information not available 01/07/2024 Do You Or Have You Ever Used Any Other Forms Of Tobacco Or Nicotine? No Information not available 01/07/2024 Sex: Female Functional Status None recorded. Mental Status None recorded. Family History Relationship Description Onset Age of this Age Resolved Age Notes Notes:*Problem: no FH of caleb al disease Medical History No medical history recorded. Gynecological HistoryNo gynecological history recorded. Obstetrics History GPAL:G 0 P 0 0 0 0 Immunizations Vaccine Type Date Status Provider Name and Address Organization Details Recorded Time Pneumococcal conjugate PCV20, polysaccharide FEW318 conjugate, adjuvant, PF 01/07/2024 completed SAMMIE CORDERO MD [address], [place], [address], [facility] 01/07/2024 12:58:27 Tdap 06/07/2020 completed Not Available [facility] 06:27:59 Pneumococcal conjugate PCV 13 09/15/2019 completed Not Available [facility] 07/27/2023 06:27:59 Influenza, high-dose, quadrivalent, PF 06/06/2021 completed Not Available [facility] 07/27/2023 06:27:59 Influenza, high-dose, quadrivalent, PF 06/12/2022 completed Not Available [facility] 07/27/2023 06:28:00 COVID-19, mRNA, LNP-S, PF, 100 mcg/0.5mL dose or 50 mcg/0.25mL dose 12/28/2020 completed Not Available [facility] 07/27/2023 06:28:00 COVID-19, mRNA, LNP-S, PF, 100 mcg/0.5mL dose or 50 mcg/0.25mL dose 08/22/2021 completed Not Available [facility] 07/27/2023 06:28:00 SARS-COV-2 (COVID-19) vaccine, UNSPECIFIED 11/30/2020 completed Not Available [facility] 07/27/2023 06:28:00 SARS-COV-2 (COVID-19) vaccine, UNSPECIFIED 06/24/2022 completed Not Available [facility] 07/27/2023 06:28:00 pneumococcal polysaccharide PPV23 09/06/2020 completed Not Available [facility] 2022 06:28:00 influenza, unspecified formulation 07/19/2020 completed Not Available [facility] 07/27/2023 06:28:00 Influenza, high-dose, quadrivalent, PF 06/25/2023 completed Not Available [facility] 09/28/2023 05:33:02 SARS-COV-2 (COVID-19) vaccine, UNSPECIFIED 07/23/2023 completed Not Available [facility] 09/28/2023 05:33:02 zoster recombinant 07/19/2020 completed SHARMILA PETERSON, [facility] 01/07/2024 07:48:51 zoster recombinant 10/11/2020 completed SHARMILA PETERSON, [facility] 01/07/2024 07:49:13 Past Encounters Encounter ID Performer Location Encounter Start Date Encounter Closed Date Diagnosis/Indication Diagnosis SNOMED-CT Code [id number] RONAL LEZAMA, FINANCIAL ANALYST [address] [place] [address] 08/17/2023 09:45:16 08/17/2023 10:26:35 Atypical pneumonia [id number] Madisyn Wilkins RN [address] [place] [address] 12/31/2023 07:39:12 12/31/2023 07:50:06 Chronic kidney disease stage 3 830927255 Essential hypertension 80843234 Heart failure 81369140 Prediabetes 530368460 [id number] SAMMIE CORDERO MD [address] [place] [address] 01/07/2024 09:49:42 01/07/2024 10:52:22 Active or passive immunization 060920428 Adult [facility] th examination 733587778 Type 2 selene betes mellitus 21628644 Atrial fibrillation 4943 6004 Mixed hyperlipidemia 267 538235 Heart failure 53508454 Vitamin D deficiency 347 39876 Hyperparat hyroidism due to renal insufficiency 80920598 Obesity 510487201 [id number] SAMMIE CORDERO MD [facility] [address] [place] [address] 04/09/2024 08:53:28 04/09/2024 09:51:59 Type 2 diabetes mellitus without complication 991100960 Thyroid nodule 690255017 Mixed hyperlipidemia 267 214566 Health Concerns Section Related Observation LastModified by Organization Detai ls LastModified Time None Recorded Concern Status LastModified by Organization Details LastModified Time None Recorded Advance Directives Directive None Recorded Payers Encounter Date Sequence Insurance Name Policy Number Policy Douglas Covered Member ID Douglas Member ID Guarantor Name 12/31/2023 1 [place]ANT[place] - [place]PO) [id number] Jen Guevara [id number] Jen Guevara 01/07/2024 1 [place] - [place]) [id number] Jen Landonelly [id number] Jen Guevara 04/09/2024 1 [place] - [place]) [id number] Jen Landonelly [id number] Jen Guevara Notes Date Note Type Note Provider Name and Address Organization Details Recorded Time 08/17/2023 text/html HPI Notes: Vitaliy garcia is here today for follow after being discharged from [facility] for pneumonia. She was sent home on five days of levofloxacin, she has since finished this. Reports she is feeling much improved today, she is still tired and she is back to work. She does work at the [employer], not very physical work and is able to rest when needed. She also has an appt at [facility] with cardiology on Sunday to follow up with the testing the did with her in April. RONAL LEZAMA, KI [address], [place], [address], [facility], [facility]. 08/17/2023 15:13:28 01/07/2024 text/html HPI Notes: Here for Annual Exam. Interval history form was reviewed, including comprehensive ROS form. ROS negative throughout with the exception as noted below: Diabetes- new diagnosis, has had prediabetes since at least 2019. Most recently has had two venous blood draws with A1C of 6.7%. This is despite FARXIGA (started for her HFrEF) Hyperlipidemia- Triglycerides over 400, 17.8% by 2018 criteria, now with diabetes, not yet on statin medication. HFrEF- met with engineering tech in August, sarcoid PET was ordered by not yet done. It is finally scheduled for January 30. Sleeps with a few pillows, more comfortable, not sure if she gets SOB when she lies flat. She did cardiac rehab, perhaps slight improvement in exercise tolerance. No ankle swelling. Weighs self once a week. Sarcoid- followed by Dr. Caldera, coil cutter at [facility]. [facility] engineering tech recent note mentions Sarcoid PET scan to be ordered. Atrial fibrillation- on Eliquis and metoprolol. Still asymptomatic. during cardiac rehab sometimes in afib, other times not, and she could not tell the difference. HTN- BP at home under 125/75, often lower. Has even seen 100/65, never light headed and dizzy. 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 MD [address], [place], [address], [facility]. 01/07/2024 13:05:19 04/09/2024 text/html HPI Notes: Here for follow up of multiple problems as noted below: No new concerns. ROM Denies Chest pain, SOB, VIGIL or visual issues. She has been taking the ozempic 0.5, no GI symptoms at all. A1C dropped from 6.7 to 5.8. Kind of affects appetite, finds she can go longer without eating, and finds that she eats less. She has been dancing more. She feels that her body shape has changed. Willing to start statin, given diabetes, elevated TGs. Recent PEt scan for engineering tech, incidental finding of a thyroid nodule. MD [address], [place], [address], [facility]. 04/09/2024 12:57:10 OBGyn Episode No OBEpisode recorded.
--- OUTSIDE RECORDS SUMMARY | 2024-05-12 16:41 | XMS_ITS | Encounter Summary ---
[place] [address] Care Team Providers Care Apparel Designer Name Role Phone Sammie Cordero MD Primary Care Provider [phone] Reason for Referral * Diagnostic Test (Routine) - Closed Specialty Diagnoses / Procedures Referred By Contac t Referred To Contact Radiology Diagnoses HFrEF (heart failure with reduced ejection fraction) Procedures NM PET CT Cardiac Sarcoid Catherine Hamilton MD [facility] [place] [address] [place] [address] Referral ID Status Reason Start Date Expiration Date V isits Requested Visits Authorized [id number] Closed Specialty Service Requested 08/28/2023 02/26/2025 1 1 Reason for Visit * Diagnostic Test (Routine) - Closed Specialty Diagnoses / Procedures Referred By Contac t Referred To Contact Radiology Diagnoses HFrEF (heart failure with reduced ejection fraction) Procedures NM PET CT Cardiac Sarcoid Catherine Hamilton MD [facility] [place] [address] [place] [address] Referral ID Status Reason Start Date Expiration Date V isits Requested Visits Authorized [id number] Closed Specialty Service Requested 08/28/2023 02/26/2025 1 1 Encounter Details Date Type Department Care Team (Late st Contact Info) Description 01/31/2024 7:45 AM EDT Hospital Encounter [place] [id number] Catherine Hamilton MD [facility] [place] [address] HFrEF (heart failure with reduced ejection fraction) Discharge Disposition: Home Social History Tobacco Use Types Packs/Day Years [...] AM EST documented as of this encounter Medications at Time of Discharge Medication Sig Dispensed Refills Start Date End Date sacubitriL-valsartan (Entresto) 97-103 mg tabletIndications:HFrEF (heart failure with reduced ejection fraction) Take 1 tablet by mouth 2 times daily. 180 tablet 3 09/28/2023 metoprolol succinate XL (Toprol-XL) 200 mg ER 24 hr tabletIndications:HFrEF (heart failure with reduced ejection fraction) Take 1 tablet by mouth daily. 90 tablet 3 05/07/2023 acetaminophen (Tylenol) 325 mg tablet Take 650 mg by mouth every 4 hours as needed. 12/31/2018 dapagliflozin propanediol (Farxiga) 10 mg tablet Take 10 mg by mouth daily. timoloL (Timoptic) 0.25 % Drops 1 drop daily. latanoprost (Xalatan) 0.005 % Drops 1 drop nightly. furosemide (LASIX) 20 mg Tablet 06/12/2019 spironolactone (ALDACTONE) 25 mg Tablet TAKE 1 TABLET BY MOUTH ONCE DAILY 2 06/10/2019 ELIQUIS 2.5 mg Tablet take 1 tablet by mouth twice a day 0 02/07/2019 alendronate (FOSAMAX) 70 mg Tablet take 1 tablet by mouth every week 0 01/28/2019 vitamin E 400 unit capsuleIndications:Taking 500mg Take by mouth. Indications: Taking 500mg multivitamin (THERAGRAN) Tablet Take 1 tablet by mouth daily. ascorbic acid, Vitamin C, (Vitamin C) 500 mg tablet Take 500 mg by mouth daily. fish oil-omega-3 fatty acids 1,000 mg Capsule Take 1 g by mouth daily. Garlic Capsule Take by mouth daily. thiamine (Vitamin B-1) 100 mg Take 100 mg by mouth daily. documented as of this encounter Plan of Treatment Not on file documented as of this encounter Procedures Procedure Name Priority Date/Time Associated Diagnosis Comments NM PET CT CARDIAC SARCOID Routine 01/31/2024 10:15 AM EDT HFrEF (heart failure with reduced ejection fraction) documented in this encounter Results * NM PET CT Cardiac Sarcoid (01/31/2024 10:15 AM EDT) WORKSTATION ID [id number] DH RAD Anatomical Region Laterality Modality Nuclear Medicine Impressions 01/31/2024 1:30 PM EDT 1. ??No active cardiac sarcoid. 2. ??FDG avid hypodense nodule in the thyroid isthmus, unchanged in anatomic appearance dating back to CT of 05/23/2019. Recommend dedicated thyroid ultrasound for further characterization. I have personally reviewed the image(s) and the resident's interpretation and agree with the findings, Armando Lopez MD at 01/31/2024 1:30 PM Thank you for letting us participate in the care of this patient. ??If you are a health care provider and have any questions regarding this report, please contact the number below. ??For patients who have questions please contact the health career manager that requested your imaging first. ? Electronically signed by: Armando Lopez MD, [facility] ([phone]), at 01/31/2024 1:30 PM Narrative 01/31/2024 1:30 PM EDT EXAMINATION: NM PET CT CARDIAC SARCOID CLINICAL HISTORY: Cardiomyopathy with reduced LVEF, history of pulmonary sarcoid, LGE on cardiac MRI I50.20, Unspecified systolic (congestive) heart failure TECHNIQUE: Patient underwent 48-hour cardiac sarcoid diet preparation. Following IV administration of 25 mCi technetium 99m sestamibi, SPECT-CT of the heart was obtained. Following IV injection of 13.9 mCi 15-gunmat-5-deoxyglucose (FDG) and a standard uptake of approximately 60 minutes, a non-contrast CT scan followed by a PET scan were acquired of the chest. ?The non-contrast CT was used for anatomic localization and photon attenuation correction of the PET scan. Blood glucose level: 116 (mg/dL) COMPARISON: Cardiac MRI 05/11/2023. CT chest 05/23/2019. FINDINGS: REST MYOCARDIAL PERFUSION STUDY: Normal perfusion in all regions of the LV myocardium. Gated study: Diffuse global hypokinesis? LVEF is 34% CARDIAC FINDINGS: No visible tracer uptake in the myocardium. EXTRACARDIAC FINDINGS: Focal tracer uptake at the thyroid isthmus corresponding to hypodense lesion with a peripheral calcific focus (axial series 4, image 5), with unchanged anatomic appearance dating back to CT of 05/23/2019. No adenopathy in the hilar/mediastinal regions. 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 Cholelithiasis. Aortic and coronary calcifications. Procedure Note Armando Lopez MD - 01/31/2024 EXAMINATION: NM PET CT CARDIAC SARCOID CLINICAL HISTORY: Cardiomyopathy with reduced LVEF, history of pulmonary sarcoid, LGE on cardiac MRI I50.20, Unspecified systolic (congestive) heart failure TECHNIQUE: Patient underwent 48-hour cardiac sarcoid diet preparation. Following IV administration of 25 mCi technetium 99m sestamibi, SPECT-CTof the heart was obtained. Following IV injection of 13.9 mCi 57-qzxmyv-9-deoxyglucose (FDG) and astandard uptake of approximately 60 minutes, a non-contrast CT scan followed by aPET scan were acquired of the chest. ?The non-contrast CT was used foranatomic localization and photon attenuation correction of the PET scan. Blood glucose level: 116 (mg/dL) COMPARISON: Cardiac MRI 05/11/2023. CT chest 05/23/2019. FINDINGS: REST MYOCARDIAL PERFUSION STUDY: Normal perfusion in all regions of the LV myocardium. Gated study: Diffuse global hypokinesis? LVEF is 34% CARDIAC FINDINGS: No visible tracer uptake in the myocardium. EXTRACARDIAC FINDINGS: Focal tracer uptake at the thyroid isthmuscorresponding to hypodense lesion with a peripheral calcific focus (axial series 4,image 5), with unchanged anatomic appearance dating back to CT of 05/23/2019. Noadenopathy in the hilar/mediastinal regions. ANCILLARY CT FINDINGS: Hamartoma in the lingula measuring 20 mm isunchanged dating back to CT of 12/24/2018. Cholelithiasis. Aortic and coronary calcifications. IMPRESSION 1. No active cardiac sarcoid. 2. FDG avid hypodense nodule in the thyroid isthmus, unchanged inanatomic appearance dating back to CT of 05/23/2019. Recommend dedicated thyroidultrasound for further characterization. I have personally reviewed the image(s) and the resident's interpretationand agree with the findings, Armando Lopez MD at 01/31/2024 1:30 PM Thank you for letting us participate in the care of this patient. If youare a health care provider and have any questions regarding this report,please contact the number below. For patients who have questions please contactthe health career manager that requested your imaging first. Electronically signed by: Armando Lopez MD, [facility]([phone]), at 01/31/2024 1:30 PM Catherine Hamilton MD IMG PET ORDERABLE S documented in this encounter Visit Diagnoses Diagnosis HFrEF (heart failure with reduced ejection fraction) documented in this encounter Administered Medications Inactive Administered Medications - up to 3 most recent administrations Medication Order MAR Action Action Date Dose Rate Site technetium (Tc-99m) sestamibi injection 0-30 mCi 0-30 mCi, Intravenous, 2 TIMES DAILY PRN, 2 doses, Starting on Cherise 01/31/24 at 0806, Until Sun02/01/24 at 0435, Per Protocol, Radiology Contrast, Routine Given 01/31/2024 8:00 AM EDT 25 mCi Left Arm documented in this encounter Care Teams Apparel Designer Relationship Specialty Start Date End Date Sammie Cordero MD [facility] [address] [place] [address] PCP - General Family Medicine 09/12/19 documented as of this encounter
--- OUTSIDE RECORDS SUMMARY | 2024-05-12 16:41 | XMS_ITS | Encounter Summary ---
[place] [address] Care Team Providers Care Taxonomy Teacher Name Role Phone Sammie Cordero MD Primary Care Provider [phone] Reason for Visit * Reason Onset Date Comments Follow-up 09/20/2023 Jeana mantilla eCarlos Encounter Details Date Type Department Care Team (Late st Contact Info) Description 09/20/2023 Telephone Cardiology at [address] [address] Libby Parekh, RN Follow-up (Entresto increase.) Social History Tobacco Use Types Packs/Day Years Used Date Smoking Tobacco: Never Smokeless Tobacco: Never Alcohol Use Standard Drinks/Week Comments Never 0 (1 standard drink = 0.6 oz pur e alcohol) [facility] Inpatient Questions Answer Date Recorded Does Anyone [...] Miscellaneous Notes * Telephone Encounter - Libby Parekh RN - 10/01/2023 3:05 PM EST Pt contacted at the home number listed with the following response from Dr Hamilton: Sent entresto 97-[facility]. Ordered BMP. Order e-faxed to [facility]. Pt notified to get sometime this week and to call this information writer when she gets it done so we can get the results. She iw to call sooner with any questions/concerns. * Telephone Encounter - Libby Parekh RN - 09/20/2023 11:33 AM EST Pt calling to let Dr Hamilton know that she is doing well on the Entresto 49-51 mg 2 tabs twice a day. Is feeling good. No s/s of low BP. PB has been running in the 110-120's/70's range. Denies any swelling Does not have any daily weights and does not have a goal weight. Her weight before was 190 lbs. Will recheck at cardiac rehab tomorrow. Last BMP was done on 08/20. Pt can get repeat BMP at [facility]. Will need new order faxed if Dr Hamilton wants it done. She has to make an appointment if needed. Pt will need a new prescription for the 97-103 mg tabs, to the [facility] pharmacy in [place], if she is to continue the current dose. documented in this encounter Plan of Treatment Not on file documented as of this encounter Visit Diagnoses Not on filedocumented in this encounter Care Teams Taxonomy Teacher Relationship Specialty Start Date End Date Sammie Cordero MD [address] [place] [address] PCP - General Family Medicine 09/12/19 documented as of this encounter
--- OUTSIDE RECORDS SUMMARY | 2024-05-12 16:41 | XMS_ITS | Encounter Summary ---
[place] [address] Care Team Providers Care Audio Specialist Name Role Phone Sammie Cordero MD Primary Care Provider [phone] Encounter Details Date Type Department Care Team (Latest Contact Info) Description 02/06/2024 Travel Social History Tobacco Use Types Packs/Day [...] on filedocumented in this encounter Care Teams Audio Specialist Relationship Specialty Start Date End Date Sammie Cordero MD [address] [place] [address] PCP - General Family Medicine 09/12/19 documented as of this encounter
--- OUTSIDE RECORDS SUMMARY | 2024-05-12 16:41 | XMS_ITS | Encounter Summary ---
[facility] [place] [address] Care Team Providers Care Bowling Pin Setters Installer Name Role Phone Sammie Cordero MD Primary Care Provider [phone] Reason for Referral * Diagnostic Test (Routine) - New Request Specialty Diagnoses / Procedures Referred By Annie torres Referred To Contact Cardiology Diagnoses HFrEF (heart failure with reduced ejection fraction) Procedures Echocardiogram Transthoracic Catherine Hamilton MD [facility] [place] [address] [facility] [place] [address] Referral ID Status Reason Start Date Expiration Date Visits Requested Visits Authorized [id number] New Request Specialty Service Requested 02/12/2024 02/11/2025 1 1 Encounter Details Date Type Department Care Team (Late st Contact Info) Description 02/06/2024 2:00 PM EDT Office Visit Cardiology at [address] [address] Catherine Hamilton MD [facility] [place] [address] HFrEF (heart failure with reduced [...] AM EST documented as of this encounter Last Filed Vital Signs Vital Sign Reading Time Taken Comments Blood Pressure 136/80 02/06/2024 1:45 PM EDT Pulse 55 02/06/2024 1:45 PM EDT Temperature - - Respiratory Rate - - Oxygen Saturation 99% 02/06/2024 1:45 PM EDT Inhaled Oxygen Concentration - - Weight 95.7 kg (211 lb) 02/06/2024 1:45 PM EDT Height 172.7 cm (5' 8) 02/06/2024 1:45 PM EDT Body Mass Index 32.08 02/06/2024 1:45 PM EDT documented in this encounter Progress Notes * Catherine Hamilton MD - 02/06/2024 2:00 PM EDT Advanced Heart Failure Clinic Visit Note HPI: Jen Guevara is a 68 y.o. female with a history of atrial fibrillation, non- ischemic cardiomyopathy, HTN, pulmonary sarcoidosis, CKD presenting for follow- up. She also follows with Dr. Solorzano in cardiology at [facility]. Today she reports: - continues to feel well. Recovered back to baseline after legionaires pneumonia in late 2022 - continues to ballroom dance. Still needs to rest after 5min of brisk dancing, but she says it hasbeen decades since this was not the case - no worsened exertional dyspnea. No orthopnea, PND. No LE edema. No lightheadedness. No syncope. - TTE from [facility] in 07/2023 showed LVEF improved from 30% (01/2023) ->40% (07/2023) In terms of her initial presentation, Jen was referred by her PCP and senior consulting manager for newly reduced ejection fraction to 30% (01/2023) from a previous LVEF of 43% (05/2020). She also has a historyof pulmonary sarcoidosis, and thus there is a concern this progressive cardiomyopathy could represent cardiac sarcoid. In terms of her history of cardiomyopathy, per outside notes, she was initially found to have a cardiomyopathy in late 2017, when LVEF was down to 25- 30%. This improved to 45% within a month, and was felt to be consist with a stress induced cardiomyopathy in the setting of multiple recent personal losses. TTE in 05/2020 showed stability of LVEF ~43%. Most recent TTE in 01/2023 showed a decline in LVEF to 30%. In terms of her pulmonary sarcoidosis, this was initially diagnosed in 2018 when she presented witha dry cough and hypercalcemia, confirmed via bone biopsy. She was on prednisone from 01/2019 until 05/2020, then tapered off. Did not like prednisone, had many side effects, and was especially troubledby hair loss. Pulmonary told her she did not require additional scheduled follow up, last seen 2020. Past Medical History Patient Active Problem List Diagnosis Code Cardiomyopathy, dilated I42.0 ARF (acute renal failure) N17.9 Hypercalcemia E83.52 Nodule of left lung R91.1 Bone lesion M89.9 Medications Current Outpatient Medications on File Prior to Visit Medication Sig Dispense Refill cyanocobalamin, Vitamin B-12, (Vitamin B-12) 1,000 mcg tablet Take 1,000 mcg by mouth daily. Cholecalciferol, Vitamin D3, 125 mcg (5,000 unit) Capsule Take by mouth. sacubitriL-valsartan (Entresto) 97-103 mg tablet Take 1 tablet by mouth 2 times daily. 180 tablet 3 metoprolol succinate XL (Toprol-XL) 200 mg ER 24 hr tablet Take 1 tablet by mouth daily. 90 tablet 3 acetaminophen (Tylenol) 325 mg tablet Take 650 mg by mouth every 4 hours as needed. dapagliflozin propanediol (Farxiga) 10 mg tablet Take 10 mg by mouth daily. timoloL (Timoptic) 0.25 % Drops 1 drop daily. latanoprost (Xalatan) 0.005 % Drops 1 drop nightly. furosemide (LASIX) 20 mg Tablet spironolactone (ALDACTONE) 25 mg Tablet TAKE 1 TABLET BY MOUTH ONCE DAILY 2 ELIQUIS 2.5 mg Tablet take 1 tablet by mouth twice a day 0 alendronate (FOSAMAX) 70 mg Tablet take 1 tablet by mouth every week 0 vitamin E 400 unit capsule Take by mouth. Indications: Taking 500mg multivitamin (THERAGRAN) Tablet Take 1 tablet by mouth daily. ascorbic acid, Vitamin C, (Vitamin C) 500 mg tablet Take 500 mg by mouth daily. fish oil-omega-3 fatty acids 1,000 mg Capsule Take 1 g by mouth daily. Garlic Capsule Take by mouth daily. thiamine (Vitamin B-1) 100 mg Take 100 mg by mouth daily. No current facility-administered medications on file prior to visit. Allergies: No Known Allergies Social history - over an hour to get down here. 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 Son is also a jazz musician. Never smoker, drinks no alcohol, no drug use. Family History - Mom of alzheimers (93), dad suddenly at 86. Brother and sister healthy. 1 biological son no heart problems, 2 adopted kids. Patient Vitals for the past 24 hrs: Pulse BP SpO2 02/06/24 1345 55 136/80 99 % Gen: Well appearing, no acute distress CV: Irr irr, no murmurs, rubs, gallops, JVP flat Resp: CTAB Ext: warm and well perfused, no edema Data: Sarcoid PET 01/2024: IMPRESSION 1. No active cardiac sarcoid. TTE 07/2023: LV mildly dilated. Normal LV wall thickness. LVEF 40%. Normal RV size and systolic function. La mildly dilated. RA normal size. Trace AI, mild MR, trace TR. RHC 04/2023: RA 2 PA 39/13 (21) PCW 11 Sharri CO/CI 4.81/2.31 SVR 1530 PVR 166 Coronary angiogram 04/2023: No obstructive epicardial CAD Cardiac MRI 04/2023: Mild dilatation of the left ventricle. Global hypokinesis. Moderately decreased left ventricular ejection fraction of 31%. Mild mitral valve regurgitation. Again seen is delayed enhancement at the anterior and posterior ventricular hinge points. There is no enhancement that would indicate an infiltrative cardiomyopathy like sarcoidosis. TTE 01/2023 (per report): LVEF moderately dilated (LVEDD 6.4cm), LVEF 30%. Normal RV size and function. Mildly dilated LA, normal RA. Mild-mod MR. TTE 05/2020 (per report) - LVEF 46%, LV dilated (LVEDD 6.1cm), normal wall thickness. Normal RV sizeand function. Mildly dilated LA and RA. No significant valvular lesions. Assessment/Plan Jen Guevara is a 68 y.o.female with a history of atrial fibrillation, non- ischemic cardiomyopathy (LVEF 30-> 40%), HTN, pulmonary sarcoidosis, CKD presenting for follow-up. # Non-ischemic cardiomyopathy - unclear etiology. LVEF now improved to 40% (07/2023) with GDMT. 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 Coronary angiogram was without epicardial CAD. RHC showed normal filling pressures and preserved cardiac index. Ziopatch did not show any atrial arrhythmias, did show 11% PVC burden and several runs of NSVT. Cardiac MRI showed LVEF 31%, normal RV and LGE at the ventricular hinge points. Sarcoid PET negative for cardiac sarcoid. Euvolemic on exam, NYHA II-IIIa. - continue entresto to 97-103mg BID, metoprolol 200mg QD, trixie 25mg QD, dapa 10mg - follow-up ziopatch at next visit to assess PVC burden (previously 11%) - no indication for ICD at present given recovered LVEF to 40% - repeat TTE in 07/2024 (1 year follow-up) # Atrial fibrillation - continue apixaban - metoprolol to 200mg qHS # Thyroid nodule seen on on PET - follow-up ultrasound recommended per radiology. Will contact patient to schedule locally. Follow-up 6 months with TTE same day Catherine Hamilton MD Advanced Heart Failure and Cardiac Transplant documented in this encounter Plan of Treatment Scheduled Orders Name Type Priority Associated Diagnoses Order Schedule Echocardiogram Transthoracic Echocardiography Routine HFrEF (heart failure with reduced ejection fraction) Expected: 02/12/2024, Expires: 08/13/2024 US Thyroid Soft Tissue Imaging Routine HFrEF (heart failure with reduced ejection fraction) Expected: 02/12/2024, Expires: 08/13/2024 documented as of this encounter Results * (ABNORMAL) pro-Brain Natriuretic Peptide (02/06/2024 1:16 PM EDT) NT-proBNP 624(H) <=124 pg/mL [facility] Blood 02/06/2024 1:16 PM EDT 02/06/2024 1:21 PM EDT Narrative Resulting Agency Comment Spec In Lab Catherine Hamilton MD CHEMISTRY ORDERAB LES [facility] [place] [address] * (ABNORMAL) Basic Metabolic Panel (non-fasting) (02/06/2024 1:16 PM EDT) Pathologist [facility] Glucose 99 65 - 199 mg/dL [facility] Comment:Diabetes: >=200 mg/d L plus symptoms Blood Urea Nitrogen 25(H) 8 - 18 mg/dL [facility] Creatinine 1.36(H) 0.70 - 1.20 mg/dL [facility] Sodium 138 135 - 145 mmol/L [facility] Potassium 4.4 3.5 - 5.0 mmol/L [facility] Comment: Please note: ??Patients with WBC >100,000 may have falsely elevated Potassium levels. ??For accurate Potassium quantification in these patients send serum separator tube (gold top) for subsequent determinations. ??Contact the Clinical Chemistry Laboratory if there are any questions. Chloride 105 98 - 107 mmol/L [facility] Carbon Dioxide 22 22 - 31 mmol/L [facility] Anion Gap 11 5 - 15 mmol/L [facility] Calcium 9.3 8.5 - 10.5 mg/dL [facility] Est Glomerular Filtration Rate 42(L) >=60 mL/min/1. 73 m?? [facility] Comment: This patient's estimated [...] Lab Catherine Hamilton MD CHEMISTRY ORDERAB LES [facility] [place] [address] documented in this encounter Visit Diagnoses Diagnosis HFrEF (heart failure with reduced ejection fraction) documented in this encounter Care Teams Bowling Pin Setters Installer Relationship Specialty Start Date End Date Sammie Cordero MD [address] [place] [address] PCP - General Family Medicine 09/12/19 documented as of this encounter
--- OUTSIDE RECORDS SUMMARY | 2024-05-12 16:41 | XMS_ITS | Encounter Summary ---
Author Organization [facility] [place] [address] Care Team Providers Care Electronic Sensing Equipment Assembler Name Role Phone Sammie Cordero MD Primary Care Provider [phone] Encounter Details Date Type Department Care Team (Latest Contact Info) Description 08/20/2023 Travel Social History Tobacco Use Types Packs/Day [...] on filedocumented in this encounter Care Teams Electronic Sensing Equipment Assembler Relationship Specialty Start Date End Date Sammie Cordero MD [address] [place] [address] PCP - General Family Medicine 09/12/19 documented as of this encounter
--- OUTSIDE RECORDS SUMMARY | 2024-05-12 16:41 | XMS_ITS | Encounter Summary ---
[place] [address] Care Team Providers Care Roving Machine Operator Name Role Phone Sammie Cordero MD Primary Care Provider [phone] Encounter Details Date Type Department Care Team (Latest Contact Info) Description 05/11/2023 Travel Social History Tobacco Use Types Packs/Day [...] on filedocumented in this encounter Care Teams Roving Machine Operator Relationship Specialty Start Date End Date Sammie Cordero MD [address] [place] [address] PCP - General Family Medicine 09/12/19 documented as of this encounter
--- OUTSIDE RECORDS SUMMARY | 2024-05-12 16:41 | XMS_ITS | Encounter Summary ---
Author Organization [facility] [place] [address] Care Team Providers Care Geophysical Manager Name Role Phone Sammie Cordero MD Primary Care Provider [phone] Reason for Referral * Diagnostic Test (Routine) - Closed Specialty Diagnoses / Procedures Referred By Annie torres Referred To Contact Radiology Diagnoses HFrEF (heart failure with reduced ejection fraction) Procedures NM PET CT Cardiac Sarcoid Catherine Hamilton MD [facility] [place] [address] [place] [address] Referral ID Status Reason Start Date Expiration Date V isits Requested Visits Authorized [id number] Closed Specialty Service Requested 08/28/2023 02/26/2025 1 1 * Consultation (Routine) - Closed Specialty Diagnoses / Procedures Referred By Annie torres Referred To Contact Diagnoses HFrEF (heart failure with reduced ejection fraction) Catherine Hamilton MD [facility] [place] [address] Cardiac Rehab, [address] [place] [address] Referral ID Status Reason Start Date Expiration Date V isits Requested Visits Authorized [id number] Closed Consult, Test & Treat 08/28/2023 08/27/2024 36 36 Encounter Details Date Type Department Care Team (Late st Contact Info) Description 08/20/2023 10:40 AM EST Office Visit Cardiology at [address] [address] Catherine Hamilton MD [facility] [place] [address] HFrEF (heart failure with reduced ejection fraction) [...] Sign Reading Time Taken Comments Blood Pressure 124/72 08/20/2023 10:18 AM EST Pulse 62 08/20/2023 10:18 AM EST from 25 to 64 and back Temperature - - Respiratory Rate - - Oxygen Saturation 99% 08/20/2023 10: 18 AM EST Inhaled Oxygen Concentration - - Weight 92.5 kg (204 lb) 08/20/2023 10:1 8 AM EST Height 172.7 cm (5' 8) 08/20/2023 10:1 8 AM EST Body Mass Index 31.02 08/20/2023 10:18 AM EST documented in this encounter Progress Notes * Catherine Hamilton MD - 08/20/2023 10:40 AM EST Advanced Heart Failure Clinic Visit Note HPI: Jen Guevara is a 68 y.o. female with a history of atrial fibrillation, cardiomyopathy (presumed non-ischemic), HTN, pulmonary sarcoidosis, CKD presenting for follow-up. She also follows with in cardiology at [facility]. 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 Has not fully regained energy and strength yet. - having problems with her feet - tingling, at times feel warm and cold. Has had IVIG infusions before - no clear diagnosis. Has it every 3 months - does help. In terms of her initial presentation, Jen was referred by her PCP and pipelayer for newly reduced ejection fraction to 30% [...] showed a decline in LVEF to 30%. Jen tells me she thinks she had a stress test in the past and wastold it was normal. She has not had a coronary angiogram before. Jen tells me she has noted progressive exertional dyspnea over the past few years. She feels limited by dyspnea, especially when walking up hills. She does continue ballroom dancing, however after 5 minutes of (energetic, per her report) ballroom dancing, she does need to rest for a few minutes. After this, she is able to continue dancing. She denies significant lower extremity edema, orthopnea, PND. No lightheadedness or dizziness. No chest pain, palpitations. In terms of her pulmonary sarcoidosis, this [...] Prior to Visit Medication Sig Dispense Refill metoprolol succinate XL (Toprol-XL) 200 mg ER 24 hr tablet Take 1 tablet by mouth daily. 90 tablet 3 acetaminophen (Tylenol) 325 mg tablet Take 650 mg by mouth every 4 hours as needed. dapagliflozin propanediol (Farxiga) 10 mg tablet Take 10 mg by mouth daily. timoloL (Timoptic) 0.25 % Drops 1 drop daily. sacubitriL-valsartan (Entresto) 49-51 mg tablet Take 1 tablet by mouth 2 times daily. latanoprost (Xalatan) 0.005 % Drops 1 [...] mg Take 100 mg by mouth daily. [DISCONTINUED] lisinopriL (Prinivil;Zestril) 20 mg Tablet TK 1 T PO D [DISCONTINUED] predniSONE (Deltasone) 5 mg Tablet Take 1 tablet by mouth daily. 30 tablet 5 [DISCONTINUED] azithromycin (ZITHROMAX) 250 mg Tablet Take 1 tablet by mouth daily. Day1:take 2 tablets daily, Day 2-5:Take one tablet daily (Patient not taking: Reported on 03/24/2020) 6 tablet 0 [DISCONTINUED] cyanocobalamin, vitamin B-12, 100 mcg Tablet Take 100 mcg by mouth daily. No current facility-administered medications on file prior to visit. Allergies: No Known Allergies Social history - over an hour to get down here. 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 Son is also a associate professor of church music. Never smoker, drinks no alcohol, no drug use. Family History - Mom of alzheimers (93), dad suddenly at 86. Brother and sister healthy. 1 biological son no heart problems, 2 adopted kids. Patient Vitals for the past 24 hrs: Pulse BP SpO2 08/20/23 1018 62 124/72 99 % Gen: Well appearing, no acute distress CV: Irr irr, no murmurs, rubs, gallops, JVP flat Resp: CTAB Ext: warm and well perfused, no edema Data: TTE 01/2023 (per report): LVEF moderately dilated (LVEDD 6.4cm), LVEF 30%. Normal RV size and function. Mildly dilated LA, normal RA. Mild-mod MR. TTE 05/2020 (per report) - LVEF 46%, LV dilated (LVEDD 6.1cm), normal wall thickness. Normal RV sizeand function. Mildly dilated LA and RA. No significant valvular lesions. Assessment/Plan Jen Guevara is a 68 y.o.female with a history of atrial fibrillation, cardiomyopathy (presumednon-ischemic), HTN, pulmonary sarcoidosis, CKD presenting for follow-up. 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 Coronary angiogram was without epicardial CAD. RHC showed normal filling pressures and preserved cardiac index. Ziopatch didnot show any atrial arrhythmias, did show 11% PVC burden and several runs of NSVT. Cardiac MRI showed LVEF 31%, normal RV and LGE at the ventricular hinge points. While this LGE pattern is non-specific and seen frequently in dilated cardiomyopathy, given history of pulmonary sarcoid as well as significant ventricular ectopy, recommend pursuing sarcoid PET to further evaluate for active cardiac sarcoid. Symptomatically, she remains active enough to continue ballroom dancing, but says she needs to stopand rest at least every five minutes, which is quite different than prior for her. NYHA II-III. When we obtain coronary angiogram with will also get a RHC to assess filling pressure and hemodynamics. - request TTE done at recent [facility] hospitalization - Sarcoid PET - increase entresto to 97-103mg BID - continue metoprolol 200mg QD, trixie 25mg QD, dapa 10mg - referral to cardiac rehab - depending on LV function from recent [facility] admission, obtain follow-up TTE in 3 months and referral for ICD if LVEF still < 35% # Atrial fibrillation - continue apixaban - metoprolol to 200mg qHS Follow-up in person in 6 months, discuss PET results in the interim. Catherine Hamilton MD Advanced Heart Failure and Cardiac Transplant documented in this encounter Plan of Treatment Scheduled Referrals Name Type Priority Associated Diagnoses Orde r Schedule Referral to Cardiac Rehab Outpatient Referral Routine HFrEF (heart failure with reduced ejection fraction) Ordered: 08/28/2023 documented as of this encounter Results * NM PET CT Cardiac Sarcoid (01/31/2024 10:15 AM EDT) [employer] WORKSTATION ID [id number] DH RAD Anatomical Region Laterality Modality Nuclear [...] who have questions please contact the health home care nurse that requested your imaging first. ? Electronically signed by: Armando Lopez MD, [facility] ([phone]), at 01/31/2024 1:30 PM Narrative 01/31/2024 1:30 [...] obtained. Following IV injection of 13.9 mCi 38-bclhnx-7-deoxyglucose (FDG) and a standard uptake of approximately [...] obtained. Following IV injection of 13.9 mCi 41-sgwfnj-3-deoxyglucose (FDG) and astandard uptake of approximately 60 [...] patients who have questions please contactthe health home care nurse that requested your imaging first. Electronically signed by: Armando Lopez MD, [facility]([phone]), at 01/31/2024 1:30 PM Catherine Hamilton MD IM PET ORDERABLE S * (ABNORMAL) pro-Brain Natriuretic Peptide (08/20/2023 9:19 AM EST) NT-proBNP 1,790(H) <=124 pg/mL [facility] Blood 08/20/2023 9:19 AM EST 08/20/2023 9:22 AM EST Narrative Resulting Agency Comment Spec In Lab Catherine Hamilton MD CHEMISTRY ORDERAB LES [facility] [place] [address] * (ABNORMAL) Basic Metabolic Panel (non-fasting) (08/20/2023 9:19 AM EST) Glucose 143 65 - 199 mg/dL [facility] Comment:Diabetes: >=200 mg/d L plus symptoms Blood Urea Nitrogen 23(H) 8 - 18 mg/dL [facility] Creatinine 1.33(H) 0.70 - 1.20 mg/dL [facility] Sodium 143 135 - 145 mmol/L [facility] Potassium 4.4 3.5 - 5.0 mmol/L [facility] Comment: Please note: ??Patients with WBC >100,000 may have falsely elevated Potassium levels. ??For accurate Potassium quantification in these patients send serum separator tube (gold top) for subsequent determinations. ??Contact the Clinical Chemistry Laboratory if there are any questions. Chloride 107 98 - 107 mmol/L [facility] Carbon Dioxide 23 22 - 31 mmol/L [facility] Anion Gap 13 5 - 15 mmol/L [facility] Calcium 9.7 8.5 - 10.5 mg/dL [facility] Est Glomerular Filtration Rate 43(L) >=60 mL/min/1. 73 m?? [facility] Comment: This patient's estimated GFR [...] and symptoms in addition to eGFR. Blood 08/20/2023 9:19 AM EST 08/20/2023 9:22 AM EST Narrative Resulting Agency Comment Spec In Lab Catherine Hamilton MD CHEMISTRY ORDERAB LES [facility] [place] [address] documented in this encounter Visit Diagnoses Diagnosis HFrEF (heart failure with reduced ejection fraction) HFrEF (heart failure with reduced ejection fraction) documented in this encounter Care Teams Geophysical Manager Relationship Specialty Start Date End Date Sammie Cordero MD [address] [place] [address] PCP - General Family Medicine 09/12/19 documented as of this encounter
--- OUTSIDE RECORDS SUMMARY | 2024-05-12 16:41 | XMS_ITS | Encounter Summary ---
[place] [address] Care Team Providers Care Crane Crew Supervisor Name Role Phone Sammie Cordero MD Primary Care Provider [phone] Encounter Details Date Type Department Care Team (Late st Contact Info) Description 08/28/2023 Notes [place] [address] Annia Romeo, JULIANO Social History Tobacco Use Types Packs/Day Years [...] AM EST documented as of this encounter Progress Notes * Annia Romeo, JULIANO - 08/28/2023 11:44 AM EST Cardiac rehab referral received on this patient from Dr. Hamilton. DX: HFrEF Patient lives in [place], [place] so the closest program would be [facility]. Referral sent today. documented in this encounter Plan of Treatment Not on file documented as of this encounter Visit Diagnoses Not on filedocumented in this encounter Care Teams Crane Crew Supervisor Relationship Specialty Start Date End Date Sammie Cordero MD [address] [facility] [address] [place] [address] PCP - General Family Medicine 09/12/19 documented as of this encounter
--- OUTSIDE RECORDS SUMMARY | 2024-05-12 16:41 | XMS_ITS | Continuity of Care Document ---
Author Organization [facility], [facility] [place] [address] Care Team Providers Care Assembler Final Name Role Phone SAMMIE CORDERO Primary Care Provider [facility] OFFICE OTHER MARILU AGUILAR Airframe Design Engineer MEERA VIDALES Neurologist AERTHA CALDERA Director Advertising Assessment No assessment recorded. Plan of Treatment Reminders Order Date Submit Date Provider Last Modified By Organization Details Last Modified Time Details Appointments Follow Up 20 2023 09:00A M Not available Not available Not available Lab hemoglobi n A1C, fingersti ck 2023 024 [email or web address] [facility], [address], [place], [address], 04/09/2024 09:31:26 microalbu min, urine 2023 024 JONO [facility] (Registration ), [address] [place] [address] , [place], [address], 04/09/2024 17:31:05 Referral None recorded. Procedures None recorded. Surgeries None recorded. Imaging US, thyroid - nodule noted on PET scan done at [facility]. 2023 024 [email or web address] [facility], [address], [place], [address], 04/16/2024 15:26:16 Medication Orders atorvasta tin 20 mg tablet 2023 024 JONO [id number], [address] [place], [id number], 04/09/2024 09:31:29 Ozempic 1 mg/dose (4 mg/3 mL) subcutane ous pen injector 2023 024 JONO [id number], [address], [place], [id number], 04/09/2024 09:31:30 Patient TargetsNo targets recorded. Patient InstructionsNo instructions recorded. Reason for Referral Med Care Manager Referral fo r Thyroid nodule Thyroid USG noted on PET scan, confirmed on USG, biospy recommended. I do not see that she has had recent thyroid blood level testing. Referring Physician: Sammie Cordero, Family Medicine, Encounter Date: 04/16/2024 Results Created Date Observation Date Name Description Value Unit Range Abnormal Flag LastModifiedBy Organization Detail LastModifiedTime 04/09/2004/09/2024 hemog lobin A1C, finge rstic k hemoglobin A1C 5.8 % <5.7 Not Available [facility] [address], [place], [address], 04/09/2024 09:19:17 04/16/2004/16/2024 ultra sound imagi ng repor t Patien t Name: Carlos Multani Unit #: [id number] Loc: DI Orderi ng Provid er: Sammie Cordero M.D. Accoun t #: [id number] Status : REG CLI Primar y Care Provid er: Sammie Cordero M.D. Date of Exam: Sex: F Admiss ion Date: : 1954 Age: 69 Exam(s ) US THYROI D EXAM: US THYROI D CLINIC AL HISTOR Y: THYROI D NODULE ,E04.1 ,THYRO ID NOTED ON PET SCAN DONE AT [facility]. TECHNI QUE: Ultras ound thyroi d perfor [...] error, please notify us immedi ately at [phone] and return the origin al report to us at the addres s above. Thank- you. [facility] [address] , [place], [address] 04/22/2024 12:53:16 Result Notes None recorded. Problems Name Status Onset Date Resolution Date Notes Provider Name and Address Organization Details Recorded Time Atrial fibrillation Active 2018 ALCIDES santos, [facility], [facility]. 4 08:29:03 Essential hypertension Active 2018 ALCIDESMickey NAZARIOUE danielle, [facility]. 4 08:29:39 Sarcoidosis Active 2018 ALCIDES santos, [facility] 4 08:31:39 Cardiomyopath y Completed 201806/25/2023 Problem Code: I42.9; Problem Code Type: ICD-10; Not Available [facility] 4 05:37:34 Adult health examination Active 2018 ALCIDESMickey NAZARIOUE danielle, [facility] 4 08:28:58 Chronic kidney disease stage 3 Active 2018 [address], [place], [address] , [facility] 4 09:45:30 Impacted cerumen of bilateral ears Completed 201809/29/2019 09/15/2019 - Comments only - Sammie Cordero MD - flushed today by nursing. Problem Code: H61.23; Problem Code Type: ICD-10; Not Available [facility] 3 05:11:19 Acute upper respiratory infection Completed 201809/29/2019 09/15/2019 - Comments only - Sammie Cordero MD - seen few days ago by consultant electronics and given steroid and underlying sarcoid, treated with rosalia kinney. Problem Code: J06.9; Problem Code Type: ICD-10; Not Available [facility] 3 05:11:19 Prediabetes Completed 201901/07/[address], [place], [address] , [facility] 4 10:13:33 Screening for malignant neoplasm of colon Completed 201906/13/2023 Problem Code: Z12.11; Problem Code Type: ICD-10; Not Available [facility] 3 05:11:19 Pure hyperglycerid emia Completed 201901/07/[address], [facility] [address] , [facility] 4 10:47:17 Menopause present Completed 201906/21/2020 Problem Code: Z78.0; Problem Code Type: ICD-10; Not Available [facility] 3 05:11:19 Skin sensation disturbance Active 2019 ALCIDES santos, 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 4 08:30:35 Vitamin D deficiency Active [address] [facility] 4 08:32:54 Screening for malignant neoplasm of breast Completed 202112/31/[address], [place], [address] , [facility] 4 17:44:34 Pain of left shoulder joint Active [address], [place], [address] , [facility] 4 17:44:29 Breast composition Completed 202106/25/2023 06/12/2022 - Comments only - Sammie Cordero MD - has follow up mammogram scheduled next month Not Available [facility] 4 05:37:34 Dyspnea Completed 202108/28/2023 Problem Code: R06.09; Problem Code Type: ICD-10; Not Available [facility] 4 05:37:34 Glaucoma Active 2022 ALCIDES santos, [facility] 4 08:29:46 Cataract Active 2022 SAMMIE CORDERO MD [address], [place], [address] [facility] 4 09:49:16 Hyperlipidemi a Completed 201806/07/2020 Problem Code: E78.5; Problem Code Type: ICD-10; Not Available [facility] 3 05:11:21 Long-term current use of systemic steroid Completed 201906/07/2020 Problem Code: Z79.52; Problem Code Type: ICD-10; Not Available [facility] 3 05:11:21 Cellulitis of toe Completed 202101/01/2023 Problem Code: L03.039; Problem Code Type: ICD-10; Not Available [facility] 3 05:11:21 Renal failure syndrome Completed 201809/15/2019 Problem Code: N19; Problem Code Type: ICD-10; Not Available [facility] 3 05:11:21 Hypercalcemia Completed 201809/15/2019 Problem Code: E83.52; Problem Code Type: ICD-10; Not Available [facility] 3 05:11:21 Hyperglycemia Completed 201809/15/2019 12/11/2019 - Comments only - Sammie Cordero MD - on several labs, unclear if fasting, will do fasting glucose and A1C prior to next visit. Problem Code: R73.9; Problem Code Type: ICD-10; Not Available [facility] 3 05:11:22 Pulmonary hypertension Active 2022 ALCIDES santos, [facility]. 4 08:31:14 Oophorectomy Active 2023 Right. 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 Followed by Dr. Taylor, [facility] MD [address], [place] [id number] , [facility] 4 10:07:41 Type 2 diabetes mellitus Active [address], [place] [address] , [facility] 4 10:13:44 Mixed hyperlipidemi a Active 2023 Elevated TG, with DM, CV10 rises to 11.8% MD [address], [facility] [address] , [facility] 4 10:48:00 Obesity Active [address], [facility] [address] , [facility] 4 13:03:43 Problem Notes None recorded. Medical Equipment None Reported. Allergies Allergen ID Allergen Name Allergen Category Reaction Reaction Severity Criticality Documentation Date Start Date Code Code System Note Provider Name and Address Organization Details Recorded Time 34937 ethinyl estradiol / levonorge strel medicatio n Not available Not available low 08/17/2023 93246 8 RxNorm KEYLA PATEL, [place] - [facility]. 3 09:56:43 Medications Name Sig Start Date [...] Updated DateTime 4 171.2 cm 32.2 kg/m2 39440.2 1 g 97.7 [degF] 99 % 99 % 76 /min 16 /min 114 mm[Hg] 72 mm[Hg] DANDY GARCIA LPN [facility] 4 09:10:27 Social History Question Answer Notes LastModified by Organizat ion Details LastModified Time Tobacco Smoking Status Never Smoker DANDY GARCIA LPN [facility] 01/07/2024 10:03:16 Would You Say That, [...] Details Recorded Time Pneumococcal conjugate PCV20, polysaccharide YIU357 conjugate, adjuvant, PF 01/07/2024 completed SAMMIE CORDERO MD [address], [place], [address], [facility] 01/07/2024 12:58:27 Tdap 06/07/2020 completed Not Available [facility] 06:27:59 Pneumococcal conjugate PCV 13 09/15/2019 completed Not Available [facility] 07/27/2023 06:27:59 Influenza, high-dose, quadrivalent, PF 06/06/2021 completed Not Available [facility] 07/27/2023 06:27:59 Influenza, high-dose, quadrivalent, PF 06/12/2022 completed Not Available [facility] 07/27/2023 06:28:00 COVID-19, mRNA, LNP-S, PF, 100 mcg/0.5mL dose or 50 mcg/0.25mL dose 12/28/2020 completed Not Available [facility] 07/27/2023 06:28:00 COVID-19, mRNA, LNP-S, PF, 100 mcg/0.5mL dose or 50 mcg/0.25mL dose 08/22/2021 completed Not Available [facility] 07/27/2023 06:28:00 SARS-COV-2 (COVID-19) vaccine, UNSPECIFIED 11/30/2020 completed Not Available [facility] 07/27/2023 06:28:00 SARS-COV-2 (COVID-19) vaccine, UNSPECIFIED 06/24/2022 completed Not Available [facility] 07/27/2023 06:28:00 pneumococcal polysaccharide PPV23 09/06/2020 completed Not Available [facility] 2022 06:28:00 influenza, unspecified formulation 07/19/2020 completed Not Available [facility] 07/27/2023 06:28:00 Influenza, high-dose, quadrivalent, PF 06/25/2023 completed Not Available [facility] 09/28/2023 05:33:02 SARS-COV-2 (COVID-19) vaccine, UNSPECIFIED 07/23/2023 completed Not Available [facility] 09/28/2023 05:33:02 zoster recombinant 07/19/2020 completed SHARMILA PETERSON, [facility] 01/07/2024 07:48:51 zoster recombinant 10/11/2020 completed SHARMILA PETERSON, [facility] 01/07/2024 07:49:13 Past Encounters Encounter ID Performer Location Encounter Start Date Encounter Closed Date Diagnosis/Indication Diagnosis SNOMED-CT Code [id number] SAMMIE CORDERO MD [address] [place] [address] 04/09/2024 08:53:28 04/09/2024 09:51:59 Type 2 diabetes mellitus without complication [id number] Thyroid nodule 995211273 Mixed hyperlipidemia 267 809598 Health Concerns Section Related Observation LastModified by Organization Detai ls LastModified Time None Recorded Concern Status LastModified by Organization Details LastModified Time None Recorded Payers Encounter Date Sequence Insurance Name Policy Number Policy Douglas Covered Member ID Douglas Member ID Guarantor Name 04/09/2024 1 [id number]MEDICARE [place]/ [place]VANTAGE - PPO) [id number] Jen Guevara [id number] Jen Guevara Notes Date Note Type Note Provider Name and Address Organization Details Recorded Time 04/09/2024 text/html HPI Notes: Here for follow up of multiple problems as noted below: No new concerns. ROM Denies Chest pain, SOB, VGIIL or visual issues. She has been taking the ozempic 0.5, no GI symptoms at all. A1C dropped from 6.7 to 5.8. Kind of affects appetite, finds she can go longer without eating, and finds that she eats less. She has been dancing more. She feels that her body shape has changed. Willing to start statin, given diabetes, elevated TGs. Recent PEt scan for developer relations manager, incidental finding of a thyroid nodule. SAMMIE CORDERO MD [address], [place], [address], [facility] - [facility]. 04/09/2024 12:57:10 OBGyn Episode No OBEpisode recorded.
--- OUTSIDE RECORDS SUMMARY | 2024-05-12 16:41 | XMS_ITS | Encounter Summary ---
Author Organization [facility] [place] [address] Care Team Providers Care Senior Scheduler Name Role Phone Sammie Cordero MD Primary Care Provider [phone] Reason for Visit * Diagnostic Test (Routine) - Closed Specialty Diagnoses / Procedures Referred By Annie torres Referred To Contact Radiology Diagnoses HFrEF (heart failure with reduced ejection fraction) Procedures NM PET CT Cardiac Sarcoid Catherine Hamilton MD [facility] [address] [place] [address] [place] [address] Referral ID Status Reason Start Date Expiration Date V isits Requested Visits Authorized [id number] Closed Specialty Service Requested 08/28/2023 02/26/2025 1 1 Encounter Details Date Type Department Care Team (Late st Contact Info) Description 01/31/2024 7:46 AM EDT - 01/31/2024 11:59 PM EDT Hospital Encounter [place] [address] Catherine Hamilton MD [facility] [place] [address] Discharge Disposition: Home Social History Tobacco Use [...] HFrEF (heart failure with reduced ejection fraction) POCT GLUCOSE Routine 01/31/2024 9:04 AM EDT documented in this encounter Results * POCT Glucose (01/31/2024 9:04 AM EDT) Glucose, POC 116 65 - 199 mg/dL [facility] Comment: Supplemental ranges: <140 mg/dL before meals <180 mg/dL all other times of the day Blood 01/31/2024 9:04 AM EDT 01/31/2024 9:04 AM EDT Catherine Hamilton MD POINT OF CARE DAVE T ORDERABLES [facility] [place] [address] documented in this encounter Visit Diagnoses Not on filedocumented in this encounter Care Teams Senior Scheduler Relationship Specialty Start Date End Date Sammie Cordero MD [address] [place] [address] PCP - General Family Medicine 09/12/19 documented as of this encounter
--- OUTSIDE RECORDS SUMMARY | 2024-05-12 16:41 | XMS_ITS | Encounter Summary ---
[place] [address] Care Team Providers Care Pilot Plant Research Technician Name Role Phone Sammie Cordero MD Primary Care Provider [phone] Encounter Details Date Type Department Care Team (Latest Contact Info) Description 08/20/2023 9:40 AM EST Laboratory Appointment Lab [address] [place] [address] HFrEF (heart failure with reduced ejection fraction) [...] Associated Diagnosis Comments PRO-BRAIN NATRIURETIC PEPTIDE Routine 08/20/2023 9:19 AM EST HFrEF (heart failure with reduced ejection fraction) BASIC METABOLIC PANEL Routine 08/20/2023 9:19 AM EST HFrEF (heart failure with reduced ejection fraction) documented in this encounter Results * (ABNORMAL) Basic Metabolic Panel (non-fasting) (08/20/2023 9:19 AM EST) Glucose 143 65 - 199 mg/dL [facility] Comment:Diabetes: >=200 mg/d L plus symptoms Blood Urea Nitrogen 23(H) 8 - 18 mg/dL [facility] Creatinine 1.33(H) 0.70 - 1.20 mg/dL [facility] Sodium 143 135 - 145 mmol/L [facility] Potassium 4.4 3.5 - 5.0 mmol/L [facility] Comment: Please note: ??Patients with WBC >100,000 may have falsely elevated Potassium levels. ??For accurate Potassium quantification in these patients send serum separator tube (gold top) for subsequent determinations. ??Contact the Clinical Chemistry Laboratory if there are any questions. Chloride 107 98 - 107 mmol/L [facility] Carbon Dioxide 23 22 - 31 mmol/L [facility] Anion Gap 13 5 - 15 mmol/L [facility] Calcium 9.7 8.5 - 10.5 mg/dL [facility] Est Glomerular Filtration Rate 43(L) >=60 mL/min/1. 73 m?? [facility] Comment: This patient's estimated GFR was [...] Lab Catherine Hamilton MD CHEMISTRY ORDERAB LES [facility] [place] [address] * (ABNORMAL) pro-Brain Natriuretic Peptide (08/20/2023 9:19 AM EST) NT-proBNP 1,790(H) <=124 pg/mL [facility] Blood 08/20/2023 9:19 AM EST 08/20/2023 9:22 AM EST Narrative Resulting Agency Comment Spec In Lab Catherine Hamilton MD CHEMISTRY ORDERAB LES Performing Organization Address City/[facility] Co de Phone Number [facility] [place] [address] documented in this encounter Visit Diagnoses Diagnosis HFrEF (heart failure with reduced ejection fraction) documented in this encounter Care Teams Pilot Plant Research Technician Relationship Specialty Start Date End Date Sammie Cordero MD [facility] [address] [place] [address] PCP - General Family Medicine 09/12/19 documented as of this encounter
--- OUTSIDE RECORDS SUMMARY | 2024-05-12 16:41 | XMS_ITS | Encounter Summary ---
Author Organization [facility] [place] [address] Care Team Providers Care Weight Count Operator Name Role Phone Sammie Cordero MD Primary Care Provider [phone] Reason for Visit * Diagnostic Test (Routine) - Closed Specialty Diagnoses / Procedures Referred By Annie torres Referred To Contact Radiology Diagnoses HFrEF (heart failure with reduced ejection fraction) Procedures NM PET CT Cardiac Sarcoid Catherine Hamilton MD [facility] [place] [address] [place] [address] Referral ID Status Reason Start Date Expiration Date V isits Requested Visits Authorized [id number] Closed Specialty Service Requested 08/28/2023 02/26/2025 1 1 Encounter Details Date Type Department Care Team (Late st Contact Info) Description 01/31/2024 7:46 AM EDT - 01/31/2024 11:59 PM EDT Hospital Encounter [place] [address] Catherine Hamilton MD [facility] [place] [address] Discharge Disposition: Home Social History [...] reduced ejection fraction) documented in this encounter Visit Diagnoses Not on filedocumented in this encounter Administered Medications Inactive Administered Medications - up to 3 most recent administrations Medication Order MAR Action Action Date Dose Rate Site fludeoxyglucose (F-18) FDG injection 0-20 mCi 0-20 mCi, Intravenous, ONCE PRN, 1 dose, Starting on Cherise 01/31/24 at 0911, Until Cherise 01/31/24 at 0907, Per Protocol, Radiology Contrast, Routine Given 01/31/2024 9:07 AM EDT 13.9 mCi Left Arm documented in this encounter Care Teams Weight Count Operator Relationship Specialty Start Date End Date Sammie Cordero MD [facility] [address] [place] [address] PCP - General Family Medicine 09/12/19 documented as of this encounter
--- OUTSIDE RECORDS SUMMARY | 2024-05-12 16:41 | XMS_ITS | Encounter Summary ---
[facility] [place] [address] Care Team Providers Care Wall Insulation Sprayer Name Role Phone Sammie Cordero MD Primary Care Provider [phone] Reason for Referral * Diagnostic Test (Routine) - Closed Specialty Diagnoses / Procedures Referred By Contac t Referred To Contact Radiology Diagnoses HFrEF (heart failure with reduced ejection fraction) Procedures MRI Cardiac Morphology Function wwCatherine Hopkins MD [facility] [place] [address] [place] [address] Referral ID Status Reason Start Date Expiration Date V isits Requested Visits Authorized [id number] Closed Specialty Service Requested 04/18/2023 10/19/2024 1 1 Reason for Visit * Diagnostic Test (Routine) - Closed Specialty Diagnoses / Procedures Referred By Contac t Referred To Contact Radiology Diagnoses HFrEF (heart failure with reduced ejection fraction) Procedures MRI Cardiac Morphology Function Catherine Mcdonald MD [facility] [place] [address] [place] [address] Referral ID Status Reason Start Date Expiration Date V isits Requested Visits Authorized [id number] Closed Specialty Service Requested 04/18/2023 10/19/2024 1 1 Encounter Details Date Type Department Care Team (Late st Contact Info) Description 05/11/2023 8:35 AM EDT - 05/11/2023 11:59 PM EDT Hospital Encounter MRI [facility] [place] [id number] Catehrine Hamilton MD [facility] [place] [address] HFrEF (heart failure with reduced [...] Sig Dispensed Refills Start Date End Date metoprolol succinate XL (Toprol-XL) 200 mg ER [...] week 0 01/28/2019 vitamin E 400 unit capsuleIndications:Takin g 500mg Take by mouth. Indications: Taking 500mg multivitamin (THERAGRAN) Tablet Take 1 tablet by mouth daily. ascorbic acid, Vitamin C, (Vitamin C) 500 mg tablet Take 500 mg by mouth daily. fish oil-omega-3 fatty acids 1,000 mg Capsule Take 1 g by mouth daily. Garlic Capsule Take by mouth daily. thiamine (Vitamin B-1) 100 mg Take 100 mg by mouth daily. sacubitriL-valsartan (Entresto) 49-51 mg tablet Take 1 tablet by mouth 2 times daily. 09/28/2023 lisinopriL (Prinivil;Zestril) 20 mg Tablet TK 1 T PO D 02/19/2020 08/20/2023 predniSONE (Deltasone) 5 mg TabletIndications:[place]co[place] dosis Take 1 tablet by mouth daily. 30 tablet 5 03/11/2020 08/20/2023 azithromycin (ZITHROMAX) 250 mg Tablet Take 1 tablet by mouth daily. Day1:take 2 tablets daily, Day 2-5:Take one tablet daily 6 tablet 09/12/2019 08/20/2023 cyanocobalamin, vitamin B-12, 100 mcg Tablet Take 100 mcg by mouth daily. 08/20/2023 documented as of this encounter Plan of Treatment Not on file documented as of this encounter Procedures Procedure Name Priority Date/Time Associated Diagnosis Comments MRI CARDIAC MORPHOLOGY FUNCTION WWO CONTRAST Routine 05/11/2023 11:20 AM EDT HFrEF (heart failure with reduced ejection fraction) documented in this encounter Results * MRI Cardiac Morphology Function wwo Contrast (05/11/2023 11:20 AM EDT) Anatomical Region Laterality Modality Magnetic Resonan ce Impressions 05/11/2023 4:44 PM EDT Mild dilatation of the left ventricle. Global hypokinesis. Moderately decreased left ventricular ejection fraction of 31%. Mild mitral valve regurgitation. Again seen is delayed enhancement at the anterior and posterior ventricular hinge points. There is no enhancement that would indicate an infiltrative cardiomyopathy like sarcoidosis. Thank you for letting us participate in the care of this patient. ??If you are a health care provider and have any questions regarding this report, please contact the number below. ??For patients who have questions please contact the health home care giver that requested your imaging first. ? 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 Short and long axis cine steady-state free precession without contrast. ?? Short and long axis rest perfusion and delayed enhancement after intravenous administration of 38 cc of Dotarem Post-processing performed on an independent computer workstation. Patient's calculated body surface area: 2.1 m^2 FINDINGS: Chambers Left ventricle: Mild dilatation of the left ventricle. Right ventricle: Normal morphology and structure. Atria: Mild to moderate dilatation of the left atrium. Right atrium is within normal limits. Myocardium Non-contrast series: No abnormal myocardial signal on non-contrast imaging. Post-contrast series: Normal left ventricular myocardial enhancement during rest perfusion. Normal myocardial signal nulling on the postcontrast inversion recovery images. Unchanged nonspecific enhancement at the posterior hinge point. Also, mild enhancement at the anterior ventricular hinge point as before. Wall motion abnormalities: Global mild hypokinesis. Valves: No significant valvulopathy identified. Pericardium: No pericardial thickening or effusion. Aorta: Normal contour and caliber. Other thoracic great vessels: Normal contour and caliber. Non-cardiovascular structures: Stable pulmonary nodule in the left upper lobe (previously characterized as benign hamartoma). QUANTITATIVE DATA: LEFT VENTRICLE: LV Mass: 173 g LV End-Diastolic Volume: 274 mL LV End-Systolic Volume: 188 mL Stroke Volume: 86 mL LV Ejection Fraction: 31% Cardiac Output: 3.4 L/min Anteroseptal Wall Thickness: 14 mm Posterolateral Wall Thickness: 5 mm End-Diastolic Dimension: 6.3 cm End-Systolic Dimension: 5.9 cm RIGHT VENTRICLE: RV End-Diastolic Volume: 149 mL RV End-Systolic Volume: 69 mL RV Stroke Volume: 80 mL RV Ejection Fraction: 54% Procedure Note Montserrat Mark MD - 05/11/2023 EXAMINATION: MRI CARDIAC MORPHOLOGY FUNCTION WWO CONTRAST CLINICAL HISTORY: Cardiomyopathy, follow up History of pulmonary sarcoid, waxing and waning reduced LVEF, now down to30%. ? cardiac sarcoid COMPARISON: 09/24/2019 TECHNIQUE: Axial HASTE without contrast. Short and long axis cine steady-state free precession without contrast. Short and long axis rest perfusion and delayed enhancement afterintravenous administration of 38 cc of Dotarem Post-processing performed on an independent computer workstation. Patient's calculated body surface area: 2.1 m^2 FINDINGS: Chambers Left ventricle: Mild dilatation of the left ventricle. Right ventricle: Normal morphology and structure. Atria: Mild to moderate dilatation of the left atrium. Right atrium iswithin normal limits. Myocardium Non-contrast series: No abnormal myocardial signal on non-contrastimaging. Post-contrast series: Normal left ventricular myocardial enhancementduring rest perfusion. Normal myocardial signal nulling on the postcontrastinversion recovery images. Unchanged nonspecific enhancement at the posterior hingepoint. Also, mild enhancement at the anterior ventricular hinge point asbefore. Wall motion abnormalities: Global mild hypokinesis. Valves: No significant valvulopathy identified. Pericardium: No pericardial thickening or effusion. Aorta: Normal contour and caliber. Other thoracic great vessels: Normal contour and caliber. Non-cardiovascular structures: Stable pulmonary nodule in the left upperlobe (previously characterized as benign hamartoma). QUANTITATIVE DATA: LEFT VENTRICLE: LV Mass: 173 g LV End-Diastolic Volume: 274 mL LV End-Systolic Volume: 188 mL Stroke Volume: 86 mL LV Ejection Fraction: 31% Cardiac Output: 3.4 L/min Anteroseptal Wall Thickness: 14 mm Posterolateral Wall Thickness: 5 mm End-Diastolic Dimension: 6.3 cm End-Systolic Dimension: 5.9 cm RIGHT VENTRICLE: RV End-Diastolic Volume: 149 mL RV End-Systolic Volume: 69 mL RV Stroke Volume: 80 mL RV Ejection Fraction: 54% IMPRESSION Mild dilatation of the left ventricle. Global hypokinesis. Moderatelydecreased left ventricular ejection fraction of 31%. Mild mitral valve regurgitation. Again seen is delayed enhancement at the anterior and posteriorventricular hinge points. There is no enhancement that would indicate aninfiltrative cardiomyopathy like sarcoidosis. Thank you for letting us participate in the care of this patient. If youare a health care provider and have any questions regarding this report,please contact the number below. For patients who have questions please contactthe health home care giver that requested your imaging first. Catherine Hamilton MD IMG MRI ORDERABLE S documented in this encounter Visit Diagnoses Diagnosis HFrEF (heart failure with reduced ejection fraction) documented in this encounter Administered Medications Inactive Administered Medications - up to 3 most recent administrations Medication Order MAR Action Action Date Dose Rate Site gadoterate meglumine (Dotarem) (0.5 mMol/mL) injection solution 0-100 mL 0-100 mL, Intravenous, ONCE PRN, 1 dose, Starting on Sun05/11/23 at 1057, Until Sun05/11/23 at 1042, Per Protocol, Radiology Contrast, Routine Given 05/11/2023 10:42 AM EDT 38 mLs documented in this encounter Care Teams Wall Insulation Sprayer Relationship Specialty Start Date End Date Sammie Cordero MD [address] [place] [address] PCP - General Family Medicine 09/12/19 documented as of this encounter
--- OUTSIDE RECORDS SUMMARY | 2024-05-12 16:41 | XMS_ITS | Encounter Summary ---
Author Organization [facility] [place] [address] Care Team Providers Care Pediatric Psychiatrist Name Role Phone Sammie Cordero MD Primary Care Provider [phone] Reason for Visit * Diagnostic Test (Routine) - Closed Specialty Diagnoses / Procedures Referred By Annie torres Referred To Contact Radiology Diagnoses HFrEF (heart failure with reduced ejection fraction) Procedures NM PET CT Cardiac Sarcoid Catherine Hamilton MD [facility] [place] [address] [place] [address] Referral ID Status Reason Start Date Expiration Date V isits Requested Visits Authorized [id number] Closed Specialty Service Requested 08/28/2023 02/26/2025 1 1 Encounter Details Date Type Department Care Team (Late st Contact Info) Description 01/31/2024 7:46 AM EDT - 01/31/2024 11:59 PM EDT Hospital Encounter [place] [address] Catherine Hamilton MD [facility] [place] [address] Discharge Disposition: Home Social History [...] Sarcoid (01/31/2024 10:15 AM EDT) WORKSTATION ID [id number] RAD Anatomical Region Laterality Modality Nuclear Medicine [...] who have questions please contact the health healthcare administrator that requested your imaging first. ? Narrative 01/31/2024 1:30 PM EDT EXAMINATION: NM PET CT CARDIAC SARCOID CLINICAL HISTORY: Cardiomyopathy with reduced LVEF, history of pulmonary sarcoid, LGE on cardiac MRI I50.20, Unspecified systolic (congestive) heart failure TECHNIQUE: Patient underwent 48-hour cardiac sarcoid diet preparation. Following IV administration of 25 mCi technetium 99m sestamibi, SPECT-CT of the heart was obtained. Following IV injection of 13.9 mCi 93-zpkrjn-6-deoxyglucose (FDG) and a standard uptake of approximately [...] obtained. Following IV injection of 13.9 mCi 24-ahczuu-7-deoxyglucose (FDG) and astandard uptake of approximately 60 [...] patients who have questions please contactthe health healthcare administrator that requested your imaging first. Catherine Hamilton MD IMG PET ORDERABLE S documented in this encounter Visit Diagnoses Not on filedocumented in this encounter Care Teams Pediatric Psychiatrist Relationship Specialty Start Date End Date Sammie Cordero MD [address] [facility] [address] [place] [address] PCP - General Family Medicine 09/12/19 documented as of this encounter
--- OUTSIDE RECORDS SUMMARY | 2024-05-12 16:41 | XMS_ITS | Encounter Summary ---
Author [facility] [place] [address] Care Team Providers Care Dental Biller Name Role Phone Sammie Cordero MD Primary Care Provider [phone] Encounter Details Date Type Department Care Team (Late st Contact Info) Description 09/28/2023 Orders Only Cardiology at [address] [address] Catherine Hamilton MD [facility] CARDIOLOGY [place], [place] [id number] HFrEF (heart failure with reduced ejection fraction) Social History Tobacco Use Types Packs/Day Years Used Date Smoking Tobacco: Never Smokeless Tobacco: Never Alcohol Use Standard Drinks/Week Comments Never 0 (1 standard drink = 0.6 oz pur e alcohol) [facility] Inpatient Questions Answer Date Recorded Does Anyone [...] as of this encounter Plan of Treatment Scheduled Orders Name Type Priority Associated Diagnoses Orde r Schedule Basic Metabolic Panel (non-fasting) Lab Routine HFrEF (heart failure with reduced ejection fraction) Expected: 09/28/2023, Expires: 09/27/2024 documented as of this encounter Visit Diagnoses Diagnosis HFrEF (heart failure with reduced ejection fraction) documented in this encounter Care Teams Dental Biller Relationship Specialty Start Date End Date Sammie Cordero MD [address] [place] [address] PCP - General Family Medicine 09/12/19 documented as of this encounter
--- OUTSIDE RECORDS SUMMARY | 2024-05-12 16:42 | XMS_ITS | Encounter Summary ---
Author Organization [facility] [place] [address] Care Team Providers Care Director Patient Accounting Name Role Phone Sammie Cordero MD Primary Care Provider [phone] Reason for Visit * Auth/Cert (Routine) Specialty Diagnoses / Procedures Referred By Annie t Referred To Contact Diagnoses HFrEF (heart failure with reduced ejection fraction) [I50.20] Procedures PRG CATH PLMT CORONARY ART W/INJ FOR ANGIO W/R HEART CATH IMG S&I CARDIAC CATHETERIZATION CORONARY ANGIOGRAPHY; W RHC (WRVU 5.9) Giovanni Joyce MD [facility] [place] [address] [facility] Referral ID Status Reason Start Date Expiration Date Visits Re quested Visits Authorized [id number] 1 1 Encounter Details Date Type Department Care Team (Late st Contact Info) Description 05/02/2023 10:30 AM EDT - 05/02/2023 11:30 AM EDT [place] [address] Giovanni Joyce MD [facility] [place] [address] CARDIAC CATHETERIZATION Social History Tobacco Use Types Packs/Day Years [...] AM EST documented as of this encounter Discharge Instructions * Patient Instructions* Franco Harry MD - 05/02/2023 5:48 PM EDT Radial Access for Heart Cath Activity Try to avoid bending your wrist for the first 12-24 hours after the procedure to allow the artery to fully heal. Do not participate in active sports for 48 hours. Do not lift anything greater than 5 lbs. Catheter Insertion Area Care Take the dressing off of the catheter insertion site the morning following the procedure. Leave thesite open to air. If the site is oozing you may cover it with a band aid. You may take a shower if you wish. Look for signs of infection over the next several days. It is uncommon to have any visible blood at the site, any obvious bleeding is abnormal. A bruise around the wrist or small lump under the skin is normal: they generally disappear in 3-5 days. Expect some mild tenderness over the area where the catheter was inserted. You will notice this after the local anesthetic (numbing medicine) wears off. This should improve during the 24-48 hours after the procedure. You may use acetaminophen (tylenol) if needed. Contact your doctor if the discomfort worsens. Problems to Watch for If there is bright red blood flowing from the catheter insertion area: *stop what you are doing *hold pressure steadily on the area for 15 minutes *call for help *if the bleeding does not stop in 15 minutes call 911 for an ambulance. If there is swelling with black and blue color at the catheter insertion site, there may be bleeding inside. Contact the doctor if there is any increase in size. Look at the insertion site for the first few days at home. Signs of infection are: *redness *swelling *yellow, white, green or brown foul smelling drainage. *increased soreness If you think there is an infection, take your temperature. Then call your doctor. The limb on the side where you had your catheterization should look and feel normal in color, sensation, and temperature. If your hand or fingers become cool, pale, blue or change color contact your doctor. If you are having numbness or tingling in your fingers or hand contact your doctor. Follow-up: Future Appointments Date Time Provider Department Center 05/04/2023 8:00 AM DOORMAKER NI Card [facility] 05/11/2023 8:50 AM [facility] MR 3 MH MRI [facility] Rad Your Inpatient Doctor: Giovanni Joyce MD Your Primary Care Provider: Sammie Cordero MD [phone] For questions regarding this document or issues relating to this hospitalization on the Medical Service, please contact your inpatient physician through the [facility] Plaster Model And Mold Maker . Issues afterhours and on weekends will be handled by the Hospitalist staff on-call. documented in this encounter Medications at Time of Discharge Medication Sig Dispensed Refills Start Date End Date acetaminophen (Tylenol) 325 mg tablet Take 650 [...] Take 100 mcg by mouth daily. 08/20/2023 metoprolol succinate (TOPROL-XL) 100 mg Tablet Sustained Release 24 hr Take 200 mg by mouth once. 0 11/07/2018 05/07/2023 documented as of this encounter Progress Notes * Sylvain Elaine RN - 05/02/2023 8:40 PM EDT Patient discharge to home. IV removed, site benign. My assessment remains unchanged from my previous assessment. RN Discussed pain management with patient, pain tolerable. Patient has all belongings and supplies needed. Patient received After Visit Summary. These were reviewed, patient verbalizes un derstanding of AVS. All questions answered. Patient encouraged to call with questions or concerns. Patient discharged to home with family. documented in this encounter H&P Notes * Franco Hrary MD - 05/02/2023 3:38 PM EDT Images from the original note were not included. Patient Name: Jen Guevara Patient Age: 68 y.o. Birthdate: 1955 Admit date: 05/02/2023 Attending Physician: Giovanni Joyce MD Patient Information: Patient Name: Jen Guevara PCP: Sammie Cordero MD PCP Referring Skin Peeling Machine Operator: Leslie Hamilton MD Reason for Referral: Cardiomyopathy Brief History: 68 y.o. female presents for RHC/coronary angiography for HFrEF. She has a history of AF, HTN, pulmonary sarcoidosis who presents for RHC/LHC/cors to evaluate her cardiomyopathy. She reports no changes in symptoms since she sawDr. Hamilton in clinic on 04/04. She did have cataract surgery last week which went well on her left eye. Jen Guevara has not observed fevers, chills or substantive changes in health since the pre-catheterization clinic visit. No planned upcoming surgeries. No recent or ongoing bleeding events. No black stools. Aspirin status: None P2Y12 status: None Outpatient Medications Marked as Taking for the 05/02/23 encounter (Hospital Encounter) Medication Sig Dispense Refill dapagliflozin propanediol (Farxiga) 10 mg tablet Take 10 mg by mouth daily. timoloL (Timoptic) 0.25 % Drops 1 drop daily. sacubitriL-valsartan (Entresto) 49-51 mg tablet Take 1 tablet by mouth 2 times daily. furosemide (LASIX) 20 mg Tablet spironolactone (ALDACTONE) [...] mg Take 100 mg by mouth daily. metoprolol succinate (TOPROL-XL) 100 mg Tablet Sustained Release 24 hr Take 200 mg by mouth once. 0 BP 149/69 Pulse 57 Temp 36.7 ??C (98.1 ??F) (Temporal) Resp 16 Ht 172.7 cm (5' 8) Wt 94.6 kg (208 lb 9.6 oz) SpO2 99% BMI 31.72 kg/m?? PE NAD CV: Irregular, no M/R/G, JVP estimated @ cm H2O Pulm: CTAB, no w/r/r Abd: soft, NT, ND, +BS, no bruits Vasc: radial pulses 2+, femoral pulses 2+ w/o bruits, DP/PT pulses 2+. Extr: warm, no edema ASA: 3: Patient with severe systemic disease Mallampati: II: tonsillar pillars are blocked by the tongue Last 3 wbc, hgb, hct plt Recent Labs 05/02/23926 WBC 5.1 HGB 15.1 HCT 45.9* PLATELET 215 Last 3 Lytes Recent Labs 05/02/2392604/04/23 1234 NA 137 140 K 4.8 4.2 CL 104 106 CO2 22 22 BUN 32* 27* CREATININE 1.35* 1.49* Tests: EKG: AF Echocardiogram 01/20/2023: Stress Tests: No recent stress tests Previous Catheterization: None The nature of the procedures and attendant risks as outlined on the consent form were discussed in detail with the patient. The patient was given an opportunity to ask questions and these were answered; The patient agrees to proceed. Code status: FULL. Plan: RHC/coronary angiography radial and right AC vs. femoral No C/I to long-term DAPT Moderate Sedation OK Franco Harry MD 05/02/2023 documented in this encounter Miscellaneous Notes * Brief Op Note - Michael Kidd MD - 05/02/2023 5:37 PM EDT Images from the original note were not included. Brief Operative Note Patient Name: Jen Guevara : [id number] MR#: [id number] Case Date: 05/02/2023 Surgeon: Surgeon(s) and Role: * Michael Kidd MD - Primary * Franco Harry MD - Fellow - Assisting Preoperative diagnosis: HFrEF (heart failure with reduced ejection fraction) [I50.20] Postoperative diagnosis: * No post-op diagnosis entered * Preliminary Cardiac Catheterization Procedure Note: Procedure(s) performed: Right Radial Artery Access - 6 [place] African Sheath Right Medial Antecubital Vein Access - 6 [place] African Sheath Coronary Angiography Left Heart Cath Right Heart Catheterization A time-out was conducted prior to the start of the procedure to verify the correct patient and procedure, procedure location, and all relevant critical information. Preliminary findings: Coronary Angiography: Anatomically normal right dominant circulation LMCA: Without angiographic apparent disease LAD: Mild mid vessel diffuse disease LCx: Mild distal vessel diffuse disease RCA: Without angiographically apparent disease Contrast: 65 ccs Right Heart Hemodynamics Case will be discussed with Dr. Hamilton. The patient tolerated the procedure well and was transferred from the cardiac catheterization lab in stable condition without apparent complications. Full report to follow. Michael Kidd MD Pager [phone] documented in this encounter Plan of Treatment Not on file documented as of this encounter Procedures Procedure Name Priority Date/Time Associated Diagnosis Comments CARDIAC CATHETERIZATION Routine 05/02/20 5:25 PM EDT HFrEF (heart failure with reduced ejection fraction) Cath Plmt Coronary Art W/Inj For Angio W/R Heart Cath Img S&I ([id number]) 05/02/2023 4:21 PM EDT HFrEF (heart failure with reduced ejection fraction) EKG 12-LEAD Routine 05/02/2023 2:49 PM EDT HFrEF (heart failure with reduced ejection fraction) POCT GLUCOSE Routine 05/02/2023 2:44 PM EDT TYPE AND SCREEN VALIDITY STAT 05/02/2023 9:27 AM EDT ABORH RECHECK STATUS STAT 05/02/2023 9:27 AM EDT BMP W/FASTING GLUCOSE STAT 05/02/2023 9:27 AM EDT HEMOGRAM STAT 05/02/2023 9:27 AM EDT DIFFERENTIAL, AUTOMATED STAT 05/02/20 9:27 AM EDT ABO/RH TYPING STAT 05/02/2023 9:27 AM EDT PROTHROMBIN TIME STAT 05/02/2023 9:27 AM EDT CBC (WITH DIFF) STAT 05/02/2023 9:27 AM EDT ANTIBODY SCREEN STAT 05/02/2023 9:27 AM EDT TYPE AND SCREEN ([facility]/HATTIE) STAT 05/02/2023 9:27 AM EDT documented in this encounter Results * CARDIAC CATHETERIZATION (05/02/2023 5:25 PM EDT) Anatomical Region Laterality Modality Other Narrative 05/03/2023 12:57 PM EDT ?[facility] ? Cardiac Catheterization/Intervention Report ? Patient Name: Jen Guevara ? Procedure Date: 05/02/2023 ? A #: [id number] ? Primary Physician: Michael Kidd ? Case #: [id number] ? File Name: [id number] ? Catheterization Order Number: [id number] ? [facility] ? Final Report [place], [place] ? Patient Name: ? Jen Paola ? ID#: ?[id number] ? : ?1955 ? Procedure Date: ? May 02, 2023 ?Case #: ? [id number] ? Room: ? 1 ? Case Physician: ? Michael Kidd M.D. ?Start: ?16:45 ?Fellow: ? Franco Piero, M.D. ?Admission: ??05/02/2023 ? Referring Physician: ??Sammie Cordero M.D. ? Procedures: ?* Coronary Angiography ?* Left Heart Catheterization ?* Right Heart Catheterization ?* Oximetry ? History ?Jen Guevara is a 68 year old woman. The patient's smoking status is ?Never. The patient has a history of an ejection fraction less than or ?equal to 35%. She has a history of CHF. The CHF is NYHA Functional Class ?II and is classified as Systolic. She also has a history of atrial ?fibrillation/atrial flutter. Prior to the initiation of this procedure, ?the patient was designated as ASA Class III. The CSHA clinical frailty ?scale is 5: Mildly Frail. ? Diagnostic Tests: ?Prior Coronary Angiography: ? LV ejection fraction within 6 months is 30%. ?Electrocardiography: ? EKG was assessed by ECG. EKG was Abnormal. EKG showed other ? abnormality. ?Medications Prior to Procedure: ? Sacubitril and Valsartan, Beta Diana and Statin. ? Indications for Diagnostic Cath: ?The priority of the diagnostic procedure was Elective. The indication for ?the labor conciliator visit is cardiomyopathy. Chest pain symptom assessment was: ?Asymptomatic. ? Technique: ?A 6 SLFr sheath was inserted in the right radial artery utilizing the ?Seldinger technique. A 5 SLFr sheath was inserted in the right median ?antecubital vein utilizing the Seldinger technique. The left coronary ?artery was injected utilizing a 5Fr ARMINDA RADIAL catheter. A 5Fr ARMINDA ?RADIAL catheter was used to inject the right coronary artery. Right heart ?catheterization was performed utilizing a 5Fr BALLOON WEDGE catheter. ?Left ventricular pressure was performed utilizing a 5Fr ARMINDA RADIAL ?catheter. 5,000 units of heparin were administered. A total of 100cc of ?Omnipaque were opened, 65cc of Omnipaque were administered and 35cc of ?Omnipaque were wasted. Radiation: Fluoro time was 6.1 minutes, dose area ?product was 38,800 mGYcm2 and air kerma was 446 mGY. See the case log for ?additional details. ?The patient received the following medications prior to and during the ?procedure: ? Unfractionated Heparin. ? Hemodynamics: ?Right Heart Pressures ? Resting: ? Syst Diast ? EDP ?a ?v ? m ?RA ? 3 ?5 ? 2 ?RV 39 ?6 ?PA 39 ?13 ?21 ?PCW ?13 ?15 ?11 ? Hemodynamic Profile: ?Profile 1 ?CO ? 4.81 ?CI ? 2.31 ?TSR ? 1,563 ?SVR ? 1,530 ?TPR ?349 ?PVR ?166 ?Technique ?Estimated Sharri ?Left Heart Pressures ? Resting: ? Syst Diast ? EDP ?a ?v ? m ?Ao 147 ?? 72 ?94 ?LV 148 ? 8 ? Oximetry: ?Location ? %Sat ?Location ?%Sat ?Main Pulmonary Artery ??67.0 ?Peripheral Arterial ? 95.0 ? Coronary Angiography: ?Dominance: Right ?Left Main ? The left main was normal, free of disease. ?Left Anterior Descending ? There was mild diffuse (<=25% stenosis) disease of the mid segment ? of the left anterior descending artery (LAD). ?Left Circumflex ? There was mild diffuse (<=25% stenosis) disease of the distal ? segment of the left circumflex artery (LCX). ?Right Coronary Artery ? The right coronary artery (RCA) was normal, free of disease. ? Indication for Selected Procedures: ?Right Heart catheterization was initiated for Acute on chronic systolic ?(congestive) heart failure (I50.23). ? Vascular Access: ?Vascular Access Management: ? Manual Compression of the right median antecubital vein access site ? was performed. ? Mechanical Compression of the right radial artery access site was ? performed. ? Conclusions: ?* Nonobstructive coronary artery disease ?* Mild pulmonary hypertension ? Complications/Events: ?The patient had no complications during these procedures. ? Post Procedure Fluid Recommendations: ?IV fluid at 284 mL/hr for 4 hours for a total of 1,136 mL. These ?recommendations are made at the time of the procedure. Patient and ?provider preferences or a changing clinical situation may require ?modification of this regimen. ?The attending physician was present for the entire procedure. ?Dr. Michael Kidd M.D. was present during the moderate sedation ?intraservice time as documented by the sedation nurse. ??Case time = 00:30. ?Dr. Michael Kidd M.D. performed the coronary angiography, left heart ?catheterization, right heart catheterization and oximetry. ? Michael Kidd M.D. ? Electronically Signed by: Michael Kidd M.D. ? Report Finalized: 05/03/2023 ??12:50 ? Giovanni Joyce MD CARDIAC CATH ORDERAB LES * EKG 12 Lead (05/02/2023 2:49 PM EDT) Ventricular rate 61 BPM MUSE SYSTEM Atrial Rate 61 BPM MUSE SYSTEM P-R Interval 194 ms MUSE SYSTEM QRS Duration 110 ms MUSE SYSTEM Q-T Interval 448 ms MUSE SYSTEM QTC Calculated (Bezet) 450 ms MUSE SYSTEM Calculated P [place] 30 degrees MUSE SYSTEM Calculated R [place] -31 degrees MUSE SYSTEM Calculated T [place] 58 degrees MUSE SYSTEM INTERPRETATION Sinus rhythm with frequent Premature ventricular complexes Left axis deviation Minimal voltage criteria for LVH, may be normal variant ( Oz product ) Anterior infarct , age undetermined Abnormal ECG No previous ECGs available Confirmed by MD Poli, Ryley ([id number]) on 05/02/2023 4:15:29 PM MUSE SYSTEM 05/02/2023 2:49 PM EDT 05/02/2023 4:15 PM EDT Catherine Hamilton MD ECG ORDERABLES Performing Organization Address City/[facility]/ZIP Co de Phone Number MUSE SYSTEM * POCT Glucose (05/02/2023 2:44 PM EDT) Glucose, POC 108 65 - 199 mg/dL [facility] Comment: Supplemental ranges: <140 mg/dL before meals <180 mg/dL all other times of the day Blood 05/02/2023 2:44 PM EDT 05/02/2023 2:44 PM EDT Giovanni Joyce MD POINT OF CARE TEST O RDERABLES Performing Organization Address City/[facility] Co de Phone Number [facility] [place] [address] * Type and Screen Validity (05/02/2023 9:27 AM EDT) T&S only valid at [facility] Comment:This Type and Screen result is only valid at the [facility] Blood 05/02/2023 9:27 AM EDT 05/02/2023 9:43 AM EDT Narrative Resulting Agency Comment Spec In Lab Catherine Hamilton MD BLOOD BANK LAB OR DERABLES Performing Organization Address City/[facility]/ZIP Co de Phone Number [facility] [place] [address] * ABORH Recheck Status (05/02/2023 9:27 AM EDT) ABORH Recheck Order Order Placed [facility] ABORH Type Recheck Complete [facility] Blood 05/02/2023 9:27 AM EDT 05/02/2023 9:43 AM EDT Narrative Resulting Agency Comment Spec In Lab Catherine Hamilton MD BLOOD BANK LAB OR DERABLES Performing Organization Address City/[facility]/ZIP Co de Phone Number [facility] [place] [address] * Antibody screen (05/02/2023 9:27 AM EDT) Ab Screen Interp Negative [facility] Expires at 2359 on: 05/05/2023 [facility] Blood 05/02/2023 9:27 AM EDT 05/02/2023 9:43 AM EDT Narrative Resulting Agency Comment Spec In Lab Catherine Hamilton MD BLOOD BANK LAB OR DERABLES Performing Organization Address City/[facility]/ZIP Co de Phone Number [facility] [place] [address] * ABO/Rh Typing (05/02/2023 9:27 AM EDT) ABORH Type A Pos [facility] Blood 05/02/2023 9:27 AM EDT 05/02/2023 9:43 AM EDT Narrative Resulting Agency Comment Spec In Lab Catherine Hamilton MD BLOOD BANK LAB OR DERABLES Performing Organization Address City/[facility]/ZIP Co de Phone Number [facility] [place] [address] * Differential, Automated (05/02/2023 9:27 AM EDT) Neutrophil % 63.8 % [facility] Neutrophil Absolute 3.23 1.70 - 6.10 x10(3)/[facility] Lymph % 22.1 % [facility] Lymphocytes Abs 1.1 0.9 - 3.2 x10(3)/[facility] Monocyte % 9.9 % [facility] Monocyte Abs 0.5 0.3 - 0.9 x10(3)/[facility] Eos % 2.4 % [facility] Eosinophils Abs 0.1 0.0 - 0.4 x10(3)/[facility] Basophil % 1.6 % [facility] Baso Absolute 0.1 0.0 - 0.1 x10(3)/[facility] Immature Gran % 0.20 % [facility] Comment: Immature granulocytes(IG's)percentage and absolute count will include metamyelocytes, myelocytes, and promyelocytes. Blood smears from CBCs yielding IG's will be scanned manually for concordance. If this scan disagrees with the automated IG or if promyelocytes are noted, a manual differential will be performed. Immature Gran Absolute 0.01 0.00 - 0.04 x10(3)/[facility] Blood 05/02/2023 9:27 AM EDT 05/02/2023 9:39 AM EDT Narrative Resulting Agency Comment Spec In Lab Catherine Hamilton MD HEMATOLOGY ORDERA BLES Performing Organization Address City/[facility]/ZIP Co de Phone Number [facility] [place] [address] * (ABNORMAL) Hemogram (05/02/2023 9:27 AM EDT) White Blood Cell 5.1 4.0 - 9.5 x10(3)/ L [facility] Red Blood Cell 5.00 4.00 - 5.21 x10(6)/ L [facility] Hemoglobin 15.1 11.7 - 15.5 g/dL [facility] Hematocrit 45.9(H) 35.7 - 45.8 % [facility] Mean Cell Volume 91.8 82.6 - 94.4 fL [facility] Mean Cell Hemoglobin 30.2 27.1 - 32.0 pg [facility] Mean Cell Hemoglobin Concentration 32.9 31.7 - 35.0 g/dL [facility] Platelet 215 145 - 357 x10(3)/ L [facility] RDW Standard Deviation 45.7 37.0 - 46.0 fL [facility] RDW coefficient of variation 13.6 11.5 - 14.1 % [facility] Mean Platelet Volume 10.8 7.6 - 12.9 fL [facility] NRBC% auto 0.0 % [facility] NRBC Absolute 0.000 0.000 - 0.000 x10(3)/[facility] LAB[facility]AT[facility] Blood 05/02/2023 9:27 AM EDT 05/02/2023 9:39 AM EDT Narrative Resulting Agency Comment Spec In Lab Catherine Hamilton MD HEMATOLOGY ORDERA BLES [facility] [place] [address] * (ABNORMAL) BMP w/fasting Glucose (05/02/2023 9:27 AM EDT) Glucose Fasting 114(H) 65 - 99 mg/dL [facility] Comment: ?Fasting* Glucose Interpretive Criteria Normal ?65-99 mg/dL Impaired Fasting glucose ?100-125 mg/dL Consistent with Diabetes Mellitus ? >or= 126 mg/dL *Fasting is defined as no caloric intake for at least 8 hours In the absence of unequivocal hyperglycemia a plasma glucose value of >or= 126 mg/dL should be repeated on a subsequent day. Diagnosis and Classification of Diabetes Mellitus, Position Statement from the [place] [employer]. ??Diabetes Care, Volume 33, Supplement 1, Sep 2009 Blood Urea Nitrogen 32(H) 8 - 18 mg/dL [facility] Creatinine 1.35(H) 0.70 - 1.20 mg/dL [facility] Sodium 137 135 - 145 mmol/L [facility] Potassium 4.8 3.5 - 5.0 mmol/L [facility] Comment: Please note: ??Patients with WBC >100,000 may have falsely elevated Potassium levels. ??For accurate Potassium quantification in these patients send serum separator tube (gold top) for subsequent determinations. ??Contact the Clinical Chemistry Laboratory if there are any questions. Chloride 104 98 - 107 mmol/L [facility] Carbon Dioxide 22 22 - 31 mmol/L [facility] Anion Gap 11 5 - 15 mmol/L [facility] Calcium 10.0 8.5 - 10.5 mg/dL [facility] Est Glomerular Filtration Rate 43(L) >=60 mL/min/1. 73 m?? [facility] Comment: This patient's estimated GFR was [...] and symptoms in addition to eGFR. Blood 05/02/2023 9:27 AM EDT 05/02/2023 9:39 AM EDT Narrative Resulting Agency Comment Spec In Lab Catherine Hamilton MD CHEMISTRY ORDERAB LES [facility] [place] [address] * Prothrombin Time (05/02/2023 9:27 AM EDT) Prothrombin Time 11.5 9.4 - 12.5 sec [facility] International Normalization Ratio 1.0 [facility] Comment: An INR <2.0 indicates adequate procoagulant activity for hemostasis in most patients without underlying bleeding disorders, though the INR may not adequately reflect hemostatic capacity in patients with liver disease and synthetic impairment. The recommended target INR range for therapeutic anticoagulation is 2.0 ? 3.0 for most applications, though lower and higher ranges may be appropriate depending on clinical circumstances. Blood 05/02/2023 9:27 AM EDT 05/02/2023 9:39 AM EDT Narrative Resulting Agency Comment Spec In Lab Catherine Hamilton MD HEMATOLOGY ORDERA BLES [facility] [place] [address] documented in this encounter Visit Diagnoses Diagnosis HFrEF (heart failure with reduced ejection fraction) HFrEF (heart failure with reduced ejection fraction) documented in this encounter Administered Medications Inactive Administered Medications - up to 3 most recent administrations Medication Order MAR Action Action Date Dose Rate Site heparin (porcine) (1,000 units/mL) injection PRN, Starting on Sun05/02/23 at 1659, Until Sun05/02/23 at 1720, Intra-Operative (Intra-Procedure), Routine Given 05/02/2023 4:59 PM EDT 5,000 Units iohexoL (Omnipaque) (350 mg/mL) solution PRN, Starting on Sun05/02/23 at 1716, Until Sun05/02/23 at 1720, Intra-Operative (Intra-Procedure), Routine Given 05/02/2023 5:16 PM EDT 65 mLs nitroGLYcerin 100 mcg/mL intracoronary dilution PRN, Starting on Sun05/02/23 at 1657, Until Sun05/02/23 at 1720, Intra-Operative (Intra-Procedure), Routine Given 05/02/2023 4:57 PM EDT 150 mcg sodium chloride 0.9% infusion CONTINUOUS PRN, Starting on Sun05/02/23 at 1658, Until Sun05/02/23 at 1720, Intra-Operative (Intra-Procedure) New Bag 05/02/2023 4:58 PM EDT 500 mLs 500 mL/hr verapamiL (Isoptin) (2.5 mg/mL) injection PRN, Starting on Sun05/02/23 at 1657, Until Sun05/02/23 at 1720, Administer over 2 Minutes, Intra-Operative (Intra-Procedure) Given 05/02/2023 4:57 PM EDT 2.5 mg documented in this encounter Active and Recently Administered Medications Times are shown in EDT. Continuous Medication Order 04/30/2023 05/01/2023 05/02/2023 sodium chloride 0.9% infusion 125 mL/hr, Intravenous, CONTINUOUS, Starting on Sun05/02/23 at 1800, Until Sun05/02/23 at 1959, Recovery (Recovery-Hospital Unit) 1800 (Due) PRN Medication Order 04/30/2023 05/01/2023 05/02/2023 heparin (porcine) (1,000 units/mL) injection (CANCELED) PRN, Starting on Sun05/02/23 at 1659, Until Sun05/02/23 at 1720, Intra-Operative (Intra-Procedure), Routine 165 (Given - Provid er: Emilia Cherry) iohexoL (Omnipaque) (350 mg/mL) solution (CANCELED) PRN, Starting on Sun05/02/23 at 1716, Until Sun05/02/23 at 1720, Intra-Operative (Intra-Procedure), Routine 1715 (Given - Provid er: Giovanni Joyce MD) nitroGLYcerin 100 mcg/mL intracoronary dilution (CANCELED) PRN, Starting on Sun05/02/23 at 1657, Until Sun05/02/23 at 1720, Intra-Operative (Intra-Procedure), Routine 1656 (Given - Provid er: Franco Harry MD) sodium chloride 0.9% infusion (CANCELED) CONTINUOUS PRN, Starting on Sun05/02/23 at 1658, Until Sun05/02/23 at 1720, Intra-Operative (Intra-Procedure) 1657 (New Bag - Prov ider: Franco Harry MD) verapamiL (Isoptin) (2.5 mg/mL) injection (CANCELED) PRN, Starting on Sun05/02/23 at 1657, Until Sun05/02/23 at 1720, Administer over 2 Minutes, Intra-Operative (Intra-Procedure) 1657 (Given - Provid er: Franco Harry MD) documented in this encounter Care Teams Director Patient Accounting Relationship Specialty Start Date End Date Sammie Cordero MD [address] [place] [address] PCP - General Family Medicine 09/12/19 documented as of this encounter
--- OUTSIDE RECORDS SUMMARY | 2024-05-12 16:42 | XMS_ITS | Encounter Summary ---
[place] [address] Care Team Providers Care Cable Technician Name Role Phone Sammie Cordero MD Primary Care Provider Encounter Details Date Type Department Care Team (Late st Contact Info) Description 03/16/2020 Tele[place] [phone] Cecelia Garcia Social History Tobacco Use Types Packs/Day Years Used Date Smoking Tobacco: Never Smokeless Tobacco: Never Sex and Gender Information Value Date Recorded Sex Assigned at Female 11/05/2020 8:19 AM EST Gender Identity Not on file Sexual Orientation Straight 11/05/2020 8: 19 AM EST documented as of this encounter Plan of Treatment Not on file documented as of this encounter Visit Diagnoses Not on filedocumented in this encounter Care Teams Cable Technician Relationship Specialty Start Date End Date Sammie Cordero MD [address] [place] [address] PCP - General Family Medicine 09/12/19 documented as of this encounter
--- OUTSIDE RECORDS SUMMARY | 2024-05-12 16:42 | XMS_ITS | Encounter Summary ---
[place] [address] Care Team Providers Care Sign Shop Supervisor Name Role Phone Naveed Mckinney MD Primary Care Provider [phone] Reason for Referral * Diagnostic Test (Routine) - Closed Specialty Diagnoses / Procedures Referred By Annie torres Referred To Contact Radiology Diagnoses Sarcoidosis Procedures CT Chest w Contrast CT Chest wo Contrast (Generic) Hai Salinas MD [facility] [place] [address] [facility] [place] [address] Referral ID Status Reason Start Date Expiration Date V isits Requested Visits Authorized [id number] Closed Specialty Service Requested 05/13/2019 07/11/2019 1 1 Reason for Visit * Diagnostic Test (Routine) - Closed Specialty Diagnoses / Procedures Referred By Annie torres Referred To Contact Radiology Diagnoses Sarcoidosis Procedures CT Chest w Contrast CT Chest wo Contrast (Generic) Hai Salinas MD [facility] [address] [facility] [place] [address] Referral ID Status Reason Start Date Expiration Date V isits Requested Visits Authorized [id number] Closed Specialty Service Requested 05/13/2019 07/11/2019 1 1 Encounter Details Date Type Department Care Team (Latest Contact Info) Description 05/23/2019 2:40 PM EDT - 05/23/2019 3:29 PM EDT Hospital Encounter CT Scan [facility] [place] [address] Hai Salinas MD [facility] [place] [address] Sarcoidosis Discharge Disposition: Home Social History Tobacco Use [...] mouth every 4 hours as needed. 12/31/2018 ELIQUIS 2.5 mg Tablet take 1 tablet by mouth twice a day 0 02/07/2019 alendronate (FOSAMAX) 70 mg Tablet take 1 tablet by mouth every week 0 01/28/2019 vitamin E 400 unit capsuleIndications:Taki ng 500mg Take by mouth. Indications: Taking 500mg multivitamin (THERAGRAN) Tablet Take 1 tablet by mouth daily. ascorbic acid, Vitamin C, (Vitamin C) 500 mg tablet Take 500 mg by mouth daily. fish oil-omega-3 fatty acids 1,000 mg Capsule Take 1 g by mouth daily. Garlic Capsule Take by mouth daily. thiamine (Vitamin B-1) 100 mg Take 100 mg by mouth daily. predniSONE (DELTASONE) 10 mg TabletIndications:Sarco idosis Take 3.5 tablets by mouth daily. 49 tablet 3 03/05/2019 06/13/2019 predniSONE (DELTASONE) 20 mg Tablet take 3 tablet by mouth once daily 0 01/28/2019 06/13/2019 dilTIAZem (TIAZAC) 180 mg Capsule,Sustained Action 24 hr take 1 capsule by mouth once daily 0 02/07/2019 05/02/2023 cyanocobalamin, vitamin B-12, 100 mcg Tablet Take 100 mcg by mouth daily. 08/20/2023 metoprolol succinate (TOPROL-XL) 100 mg Tablet Sustained Release 24 hr Take 200 mg by mouth once. 0 11/07/2018 05/07/2023 documented as of this encounter Plan of Treatment Not on file documented as of this encounter Procedures Procedure Name Priority Date/Time Associated Diagnosis Comments CT CHEST W CONTRAST Routine 05/23/2019 5 :51 PM EDT Sarcoidosis documented in this encounter Results * CT Chest w Contrast (05/23/2019 5:51 PM EDT) Anatomical Region Laterality Modality Chest Computed Tomogra phy Impressions 05/23/2019 6:14 PM EDT Near complete clearing of previously seen groundglass and tree-in-bud opacities in upper lung zones. Stable, part fatty, lingular nodule most consistent with benign hamartoma. Thank you for letting us participate in the care of this patient. For questions regarding this report, please contact the number below. ? 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 ??Thanks TECHNIQUE: 3.75mm thick axial contiguous sections were obtained through the chest via helical acquisition after the intravenous administration of contrast, Administered 60.0 ml of VISIPAQUE 320.00 mg/ml. Thin-section reconstructions as well as coronal and sagittal reformatted images were generated. COMPARISON: Chest CT 12/24/2018 FINDINGS: Pulmonary parenchyma: The previously seen patchy groundglass opacities and tree-in-bud opacities in the upper lung zones have mostly cleared. There are no new pulmonary opacities or other interval change. Again noted is a smooth round 16 mm nodule in the lingula, containing small foci of fat density (series 3 image 92). Airways: No significant findings. Pleura: No significant findings. Lymph nodes:No significant findings. Heart, pericardium, and great vessels: No significant findings. Other mediastinal structures: No significant findings. Lower neck: No significant findings. Upper abdomen: No significant findings. Body wall soft tissues: No significant findings. Skeletal structures: No interval change. Multiple small lucencies in thoracic spine. 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 Thanks TECHNIQUE: 3.75mm thick axial contiguous sections were obtained throughthe chest via helical acquisition after the intravenous administration ofcontrast, Administered 60.0 ml of VISIPAQUE 320.00 mg/ml. Thin-sectionreconstructions as well as coronal and sagittal reformatted images were generated. COMPARISON: Chest CT 12/24/2018 FINDINGS: Pulmonary parenchyma: The previously seen patchy groundglass opacitiesand tree-in-bud opacities in the upper lung zones have mostly cleared. Thereare no new pulmonary opacities or other interval change. Again noted is a smoothround 16 mm nodule in the lingula, containing small foci of fat density (series3 image 92). Airways: No significant findings. Pleura: No significant findings. Lymph nodes:No significant findings. Heart, pericardium, and great vessels: No significant findings. Other mediastinal structures: No significant findings. Lower neck: No significant findings. Upper abdomen: No significant findings. Body wall soft tissues: No significant findings. Skeletal structures: No interval change. Multiple small lucencies inthoracic spine. IMPRESSION Near complete clearing of previously seen groundglass and [id number] in upper lung zones. Stable, part fatty, lingular nodule most consistent with benignhamartoma. Thank you for letting us participate in the care of this patient. Forquestions regarding this report, please contact the number below. Hai Salinas MD IMG CT ORDERABLES documented in this encounter Visit Diagnoses Diagnosis Sarcoidosis documented in this encounter Administered Medications Inactive Administered Medications - up to 3 most recent administrations Medication Order MAR Action Action Date Dose Rate Site iodixanol (VISIPAQUE) 320 mg iodine/mL injection 0-200 mL 0-200 mL, Intravenous, ONCE PRN, 1 dose, Starting on Sun05/23/19 at 1752, Until Sun05/23/19 at 1752, Per Protocol, Radiology Contrast, Routine Given 05/23/2019 5:52 PM EDT 60 mLs documented in this encounter Care Teams Sign Shop Supervisor Relationship Specialty Start Date End Date Naveed Mckinney MD PCP - General General Internal Medicine 12/23/18 documented as of this encounter
--- OUTSIDE RECORDS SUMMARY | 2024-05-12 16:42 | XMS_ITS | Encounter Summary ---
Author Organization [facility] [place] [address] Care Team Providers Care Patient Access Associate Name Role Phone Sammie Cordero MD Primary Care Provider Encounter Details Date Type Department Care Team (Late st Contact Info) Description 05/02/2023 [place] [address] Franco Harry MD [facility] [place] [address] Social History Tobacco Use Types Packs/Day Years [...] on filedocumented in this encounter Care Teams Patient Access Associate Relationship Specialty Start Date End Date Sammie Cordero MD [address] [place] [address] PCP - General Family Medicine 09/12/19 documented as of this encounter
--- OUTSIDE RECORDS SUMMARY | 2024-05-12 16:42 | XMS_ITS | Encounter Summary ---
[place] [address] Care Team Providers Care Plow Shaker Name Role Phone Naveed Mckinney MD Primary Care Provider Encounter Details Date Type Department Care Team (Latest Contact Info) Description 02/18/2019 7:43 AM EDT - 02/18/2019 11:59 PM EDT Hospital [place] [address] Sarcoidosis Discharge Disposition: Home Social History Tobacco [...] 100 mg by mouth daily. predniSONE (DELTASONE) 20 mg Tablet take 3 tablet by mouth once daily 0 01/28/2019 06/13/2019 dilTIAZem (TIAZAC) 180 mg Capsule,Sustained Action 24 hr take 1 capsule by mouth once daily 0 02/07/2019 05/02/2023 predniSONE (DELTASONE) 10 mg Tablet Take 4 tablets by mouth daily. 120 tablet 3 02/18/2019 03/05/2019 cyanocobalamin, vitamin B-12, 100 mcg Tablet Take 100 mcg by mouth daily. 08/20/2023 metoprolol succinate (TOPROL-XL) 100 mg Tablet Sustained Release 24 hr Take 200 mg by mouth once. 0 11/07/2018 05/07/2023 documented as of this encounter Procedure Notes * Guillermo Carson MD - 02/18/2019 11:59 PM EDTAssociated Order(s): PULMONARY FUNCTION TEST A. SPIROMETRY Reveals a mild (79-60%) reduction in the FVC and a normal FEV1/FVC ratio. B. DIFFUSING CAPACITY: The adjusted diffusing capacity(DLCO) for hemoglobin is mildly reduced (>60%-LLN) Causes of reduced DLCO include loss of effective surface area for gas exchange, decreased pulmonarycapillary blood volume, anemia or carboxyhemoglobinemia. C. PULSE OXIMETRY: Resting oxyhemoglobin saturation is normal. Resting oximetry was assessed while the patient was breathing room air. Oxyhemoglobin saturation during ambulation was normal. Ambulatory oximetry was assessed while the patient was breathing room air. The lowest saturation was 97%. D. FINAL IMPRESSION: The reduced DLCO in conjunction with Restrictive Ventilatory Dysfunction suggests that a process involving the lung parenchyma is present. Lung volume testing may provide clarification documented in this encounter Plan of Treatment Not on file documented as of this encounter Procedures Procedure Name Priority Date/Time Associated Diagnosis Comments COMMON PULMONARY FUNCTION TEST Routine 02/18/2019 11:59 PM EDT Sarcoidosis documented in this encounter Results * Pulmonary Function Testing (02/18/2019 11:59 PM EDT) Narrative Guillermo Carson MD - 02/18/2019 11:59 PM EDT Guillermo Carson MD ? 02/19/2019 ??1:09 PM A. SPIROMETRY Reveals a mild (79-60%) reduction in the FVC and a normal FEV1/FVC ratio. B. DIFFUSING CAPACITY: The adjusted diffusing capacity(DLCO) for hemoglobin is mildly reduced (>60%-LLN) Causes of reduced DLCO include loss of effective surface area for gas exchange, decreased pulmonary capillary blood volume, anemia or carboxyhemoglobinemia. C. PULSE OXIMETRY: Resting oxyhemoglobin saturation is normal. Resting oximetry was assessed while the patient was breathing room air. Oxyhemoglobin saturation during ambulation was normal. Ambulatory oximetry was assessed while the patient was breathing room air. ??The lowest saturation was 97%. D. FINAL IMPRESSION: The reduced DLCO in conjunction with Restrictive Ventilatory Dysfunction suggests that a process involving the lung parenchyma is present. Lung volume testing may provide clarification Hai Salinas MD PFT ORDERABLES documented in this encounter Visit Diagnoses Diagnosis Sarcoidosis documented in this encounter Care Teams Plow Shaker Relationship Specialty Start Date End Date Naveed Mckinney MD PCP - General General Internal Medicine 12/23/18 documented as of this encounter
--- OUTSIDE RECORDS SUMMARY | 2024-05-12 16:42 | XMS_ITS | Encounter Summary ---
[place] [address] Care Team Providers Care Specialty Manufacturing Supervisor Name Role Phone Sammie Cordero MD Primary Care Provider [phone] Encounter Details Date Type Department Care Team (Late st Contact Info) Description 12/10/2019 Telephone [place] [id number] Sylvain Cedeno Social History Tobacco Use Types Packs/Day Years Used Date Smoking Tobacco: Never Smokeless Tobacco: Never Sex and Gender Information Value Date Recorded Sex Assigned at Female 11/05/2020 8:19 AM EST Gender Identity Not on file Sexual Orientation Straight 11/05/2020 8: 19 AM EST documented as of this encounter Miscellaneous Notes * Telephone Encounter - Sylvain Cedeno - 12/10/2019 9:36 AM EDT LMOAM x1 on both cell and home phone numbers in regards to appointment on Monday 12/[address] Diamond. Changed appointment to telephone visit, and waiting for patient to call back to confirm if this is ok, or if she would rather reschedule. documented in this encounter Plan of Treatment Not on file documented as of this encounter Visit Diagnoses Not on filedocumented in this encounter Care Teams Specialty Manufacturing Supervisor Relationship Specialty Start Date End Date Sammie Cordero MD [address] [place] [address] PCP - General Family Medicine 09/12/19 documented as of this encounter
--- OUTSIDE RECORDS SUMMARY | 2024-05-12 16:42 | XMS_ITS | Encounter Summary ---
Author Organization [facility] Address [facility] [place] [address] Care Team Providers Care E Learning Specialist Name Role Phone Sammie Cordero MD Primary Care Provider [phone] Reason for Referral * Consultation (Routine) - Closed Specialty Diagnoses / Procedures Referred By Annie torres Referred To Contact Cardiology Diagnoses Cardiomyopathy, unspecified type Sarcoidosis Atrial fibrillation, unspecified type [facility] CM, Sarcoidosis, Afib. CM 07/2017 w/ an EF of25%, neg ischemic w/up. EF improved to 43% w/ lasix & entresto & afib w/ BB & diltiazem. Renal failure 01/2019 & pulm infiltrates w/ sarcoid. GUZMAN @ baseline, not very active. Recent echo shows declined EF to 30-35%. feels pt better suited to CHF Clinic. Sammie Cordero MD [facility] [address] [facility] [address] [place] [address] Catherine Hamilton MD [facility] [address] Referral ID Status Reason Start Date Expiration Date V isits Requested Visits Authorized [id number] Closed Consult, Test & Treat PCP Updated and/or Approved 02/02/2023 02/02/2024 12 12 Encounter Details Date Type Department Care Team (Latest Contact Info) Description 02/02/2023 Transcribe Orders eDH Incoming Referrals [phone] Sammie Cordero MD [address] [place] [address] Cardiomyopathy, unspecified type; Sarcoidosis; Atrial fibrillation, unspecified type Social History Tobacco Use Types Packs/Day Years Used Date Smoking Tobacco: Never Smokeless Tobacco: Never Sex and Gender Information Value Date Recorded Sex Assigned at Female 11/05/2020 8:19 AM EST Gender Identity Not on file Sexual Orientation Straight 11/05/2020 8: 19 AM EST documented as of this encounter Plan of Treatment Scheduled Referrals Name Type Priority Associated Diagnoses Orde r Schedule Referral to Cardiology Outpatient Referral Routine Cardiomyopathy, unspecified type Sarcoidosis Atrial fibrillation, unspecified type Ordered: 02/02/2023 documented as of this encounter Visit Diagnoses Diagnosis Cardiomyopathy, unspecified type Sarcoidosis Atrial fibrillation, unspecified type documented in this encounter Care Teams E Learning Specialist Relationship Specialty Start Date End Date Sammie Cordero MD [address] [place] [address] PCP - General Family Medicine 09/12/19 documented as of this encounter
--- OUTSIDE RECORDS SUMMARY | 2024-05-12 16:42 | XMS_ITS | Encounter Summary ---
[place] [address] Care Team Providers Care Tile Layer Name Role Phone Sammie Cordero MD Primary Care Provider Encounter Details Date Type Department Care Team (Latest Contact Info) Description 04/04/2023 Travel Social History Tobacco Use Types Packs/Day [...] on filedocumented in this encounter Care Teams Tile Layer Relationship Specialty Start Date End Date Sammie Cordero MD [facility] [address] [place] [address] PCP - General Family Medicine 09/12/19 documented as of this encounter
--- OUTSIDE RECORDS SUMMARY | 2024-05-12 16:42 | XMS_ITS | Encounter Summary ---
Author Organization [facility] [place] [address] Care Team Providers Care Warehouse Clerk Name Role Phone Naveed Mckinney MD Primary Care Provider [phone] Encounter Details Date Type Department Care Team (Late st Contact Info) Description 03/06/2019 Orders [place] [address] Hai Salinas MD [facility] [place] [address] Social History Tobacco Use Types Packs/Day Years [...] on filedocumented in this encounter Care Teams Warehouse Clerk Relationship Specialty Start Date End Date Naveed Mckinney MD PCP - General General Internal Medicine 12/23/18 documented as of this encounter
--- OUTSIDE RECORDS SUMMARY | 2024-05-12 16:42 | XMS_ITS | Encounter Summary ---
[place] [address] Care Team Providers Care Clean Up Person Name Role Phone Sammie Cordero MD Primary Care Provider [phone] Reason for Referral * Diagnostic Test (Routine) - Closed Specialty Diagnoses / Procedures Referred By Contac t Referred To Contact Cardiology Diagnoses HFrEF (heart failure with reduced ejection fraction) Procedures Ziopatch 48 Hrs-15 Days Catherine Hamilton MD [facility] [address] [facility] [place] [address] Referral ID Status Reason Start Date Expiration Date V isits Requested Visits Authorized [id number] Closed Specialty Service Requested 04/18/2023 04/17/2024 1 1 Reason for Visit * Diagnostic Test (Routine) - Closed Specialty Diagnoses / Procedures Referred By Contac t Referred To Contact Cardiology Diagnoses HFrEF (heart failure with reduced ejection fraction) Procedures Ziopatch 48 Hrs-15 Days Catherine Hamilton MD [facility] [place] [address] [facility] [place] [address] Referral ID Status Reason Start Date Expiration Date V isits Requested Visits Authorized [id number] Closed Specialty Service Requested 04/18/2023 04/17/2024 1 1 Encounter Details Date Type Department Care Team (Late st Contact Info) Description 05/04/2023 6:31 AM EDT - 05/04/2023 11:59 PM EDT Hospital Encounter Non-Invasive Cardiology Lab [facility] [place] [address] Catherine Hamilton MD [facility] CARDIOLOGY [place] [address] HFrEF (heart failure with reduced ejection fraction) [...] Procedure Name Priority Date/Time Associated Diagnosis Comments ZIOPATCH 48 HRS-15 DAYS Routine 05/04/2023 6:33 AM EDT HFrEF (heart failure with reduced ejection fraction) documented in this encounter Results * Ziopatch 48 Hrs-15 Days (05/04/2023 6:33 AM EDT) Anatomical Region Laterality Modality Other Narrative 06/04/2023 3:25 PM EDT Images from the original result were not included. [facility] ? 'Zio Patch' Ambulatory Cardiac Event Monitor Report Duration of recordin days, 7 hours (started on 05/11/2023) Summary Data Predominant rhythm: Sinus rhythm Maximum sinus rate: ??100 bpm Minimum sinus rate: 38 bpm Average heart rate: 62 bpm Atrial fibrillation: ? None Pauses: ?None Ectopic beats Isolated SVEs were occasional (2.0%, 73277), SVE Couplets were occasional (2.3%, 55004), and SVE Triplets were rare (<1.0%, 84). Isolated VEs were frequent (11.6%, 171930), VE Couplets were occasional (1.9%, 9032), and VE Triplets were rare (<1.0%, 246). Ventricular Bigeminy (longest episode 1 min) and Trigeminy (longest episode 3 min and 43 sec) were present. Abnormal Tachycardias 20 Ventricular Tachycardia runs occurred, the run with the fastest interval lasting 8 beats with a max rate of 179 bpm, the longest lasting 16 beats with an avg rate of 120 bpm. 8 Supraventricular Tachycardia runs occurred, the run with the fastest interval lasting 4 beats with a max rate of 143 bpm, the longest lasting 7 beats with an avg rate of 99 bpm. Triggered and Patient Diary Events There were 3 triggered and 0 patient diary events: Triggered episodes included: #05/11/2023 at 3:04 pm: NSR 81 bpm with occasional PACs or PVCs #05/11/2023 at 9:04 pm: NSR 82 bpm with frequent isolated PVCs #05/13/2023 at 5:43 am: NSR at 55 bpm with occasional PACs and rare PVC Conclusion(s): ?? The predominant rhythm is normal sinus rhythm. ?? No atrial fibrillation or flutter. Occasional atrial ectopy (2% isolated PACs) with occasional couplets and rare triplets. ??8 runs of SVT noted with the longest lasting 7 beats. ?? Frequent ventricular ectopy (11.6% isolated PVCs) with occasional couplets and rare triplets. ??20 runs of NSVT noted with the longest lasting 16 beats. ?? Triggered episodes demonstrate NSR with isolated PACs and/or isolated PVCs. ??No symptoms reported. ?? Other details in the linked PDF. Catherine Hamilton MD CARDIAC SERVICES ORDERABLES documented in this encounter Visit Diagnoses Diagnosis HFrEF (heart failure with reduced ejection fraction) documented in this encounter Care Teams Clean Up Person Relationship Specialty Start Date End Date Sammie Cordero MD [address] [place] [address] PCP - General Family Medicine 09/12/19 documented as of this encounter
--- OUTSIDE RECORDS SUMMARY | 2024-05-12 16:42 | XMS_ITS | Encounter Summary ---
[place] [address] Care Team Providers Care Nutrition Club Ambassador Name Role Phone Naveed Mckinney MD Primary Care Provider [phone] Reason for Visit * Reason Onset Date Comments Appointment 02/07/2019 Urgent Referral sent 2 wks ago, DIPIKA landaverde pt schedule anders Encounter Details Date Type Department Care Team (Late st Contact Info) Description 02/07/2019 [place] [id number] Shira Wilkes Appointment (Urgent Referral sent 2 wks ago, DIPIKA landaverde pt schedule anders) Social History Tobacco Use Types Packs/Day Years Used Date Smoking Tobacco: Never Smokeless Tobacco: Never Sex and Gender Information Value Date Recorded Sex Assigned at Female 11/05/2020 8:19 AM EST Gender Identity Not on file Sexual Orientation Straight 11/05/2020 8: 19 AM EST documented as of this encounter Miscellaneous Notes * Telephone Encounter - Shira Wilkes - 02/07/2019 9:05 AM EDT Caller and relationship to patient (if other than patient): Halina Hernández Best time to reach caller: Pt nathanael ANDERS Message or Reason for Call: Medically Urgent referral. Please contact patient to schedule appointment in your clinic Appt Needed and Reason: Yes,NEWLY DIAGNOSED SARCOID Provider: DELORES documented in this encounter Plan of Treatment Not on file documented as of this encounter Visit Diagnoses Not on filedocumented in this encounter Care Teams Nutrition Club Ambassador Relationship Specialty Start Date End Date Naveed Mckinney MD PCP - General General Internal Medicine 12/23/18 documented as of this encounter
--- OUTSIDE RECORDS SUMMARY | 2024-05-12 16:42 | XMS_ITS | Encounter Summary ---
Author Organization [facility] [place] [address] Care Team Providers Care Shuttle Filler Name Role Phone Sammie Cordero MD Primary Care Provider [phone] Reason for Visit * Auth/Cert (Routine) Specialty Diagnoses / Procedures Referred By Annie t Referred To Contact Diagnoses HFrEF (heart failure with reduced ejection fraction) [I50.20] Procedures PRG CATH PLMT CORONARY ART W/INJ FOR ANGIO W/R HEART CATH IMG S&I CARDIAC CATHETERIZATION CORONARY ANGIOGRAPHY; W RHC (WRVU 5.9) Giovanni Joyce MD [facility] [place] [address] [facility] Referral ID Status Reason Start Date Expiration Date Visits Re quested Visits Authorized [id number] 1 1 Encounter Details Date Type Department Care Team (Latest Contact Info) Description 05/02/2023 9:11 AM EDT - 05/02/2023 8:45 PM EDT Hospital [place] [phone] Giovanni Joyce MD [facility] [place] [address] HFrEF (heart failure with reduced ejection fraction) [...] Sign Reading Time Taken Comments Blood Pressure 137/92 05/02/2023 8:00 PM EDT Pulse 62 05/02/2023 8:00 PM EDT Temperature 36.1 ??C (97 ??F) 05/02/2023 7:43 PM EDT Respiratory Rate 18 05/02/2023 8:00 PM EDT Oxygen Saturation 97% 05/02/2023 8:00 PM EDT Inhaled Oxygen Concentration - - Weight 94.6 kg (208 lb 9.6 oz) 05/02/2023 2:35 P M EDT Height 172.7 cm (5' 8) 05/02/2023 2:35 PM EDT Body Mass Index 31.72 05/02/2023 2:35 PM EDT documented in this encounter Discharge Instructions * Patient Instructions* [...] Time Provider Department Center 05/04/2023 8:00 AM TAG AND LABEL CUTTER NI Card [facility] 05/11/2023 8:50 AM [facility] MR 3 MRI [facility] Rad Your Inpatient Doctor: Giovanni Joyce MD Your Primary Care Provider: Sammie Cordero MD [phone] For questions regarding this document or issues relating to this hospitalization on the Medical Service, please contact your inpatient physician through the [facility] Hairspring Adjuster . Issues afterhours and on weekends will [...] in this encounter H&P Notes * Franco Harry MD - 05/02/2023 3:38 PM EDT Images from the original note were not included. Patient Name: Jen Guevara Patient Age: 68 y.o. Birthdate: 1955 Admit date: 05/02/2023 Attending Physician: Giovanni Joyce MD Patient Information: Patient Name: Jen Guevara PCP: Sammie Cordero MD PCP Referring Sock Examiner: Leslie Hamilton MD Reason for Referral: Cardiomyopathy [...] 3 wbc, hgb, hct plt Recent Labs 05/02/23 0927 WBC 5.1 HGB 15.1 HCT 45.9* PLATELET 215 Last 3 Lytes Recent Labs 05/02/23 0927 04/04/23 1234 NA 137 140 K 4.8 4.2 [...] Operative Note Patient Name: Jen Guevara : [id number] MR#: [id number] Case Date: 05/02/2023 Surgeon: Surgeon(s) and Role: * Michael Kidd MD - Primary * Franco Harry MD - Fellow - Assisting Preoperative diagnosis: HFrEF (heart failure with reduced ejection fraction) [I50.20] Postoperative diagnosis: * No post-op diagnosis entered * Preliminary Cardiac Catheterization Procedure Note: Procedure(s) performed: Right Radial Artery Access - 6 [place]ath Right Medial Antecubital Vein Access - 6 [place] Sheath Coronary Angiography Left Heart Cath Right [...] report to follow. Michael Kidd MD Pager [phone] documented in this encounter Plan of Treatment Not on file documented as of this encounter Procedures Procedure Name Priority Date/Time Associated Diagnosis Comments CARDIAC CATHETERIZATION Routine 05/02/20 5:25 PM EDT HFrEF (heart failure with reduced ejection fraction) Cath [facility] Coronary Art W/Inj For Angio W/R Heart Cath Img S&I ([id number]) 05/02/2023 4:21 PM EDT HFrEF (heart failure [...] Modality Other Narrative 05/03/2023 12:57 PM EDT ?[facility] ? Cardiac Catheterization/Intervention Report ? Patient Name: Paola, Jen ? Procedure Date: 05/02/2023 ? A #: [id number] ? Primary Physician: Young, N ? Case #: [id number] ? File Name: [id number] ? Catheterization Order Number: [id number] ? [facility] ? Final Report [place], [place] ? Patient Name: ? Jen Paola ? ID#: ?[id number] ? : ?1955 ? Procedure Date: ? May 02, 2023 ?Case #: ? [id number] ? Room: ? 1 ? Case Physician: ? Michael Kidd M.D. ?Start: ?16:45 ?Fellow: ? Franco Harry M.D. ?Admission: ??05/02/2023 ? Referring Physician: ??Sammie [...] procedure was Elective. The indication for ?the director geophysical laboratory visit is cardiomyopathy. Chest pain symptom assessment [...] ?catheterization, right heart catheterization and oximetry. ? Michale Kidd M.D. ? Electronically Signed by: Michael Kidd M.D. ? Report Finalized: 05/03/2023 ??12:50 ? Giovanni Selam Joyce MD CARDIAC CATH ORDERAB LES * EKG 12 Lead (05/02/2023 2:49 PM EDT) Ventricular rate 61 BPM MUSE SYSTEM Atrial Rate 61 BPM MUSE SYSTEM P-R Interval 194 ms MUSE SYSTEM QRS Duration 110 ms MUSE SYSTEM Q-T Interval 448 ms MUSE SYSTEM QTC Calculated (Bezet) 450 ms MUSE SYSTEM Calculated P Madison 30 degrees MUSE SYSTEM Calculated R [place] -31 degrees MUSE SYSTEM Calculated T [place] 58 degrees MUSE SYSTEM INTERPRETATION Sinus rhythm [...] PM EDT Catherine Hamilton MD ECG ORDERABLES MUSE SYSTEM * POCT Glucose (05/02/2023 2:44 PM EDT) Glucose, POC 108 65 - 199 mg/dL [facility] Comment: Supplemental ranges: <140 mg/dL before meals <180 mg/dL all other times of the day Blood 05/02/2023 2:44 PM EDT 05/02/2023 2:44 PM EDT Giovanni Joyce MD POINT OF CARE TEST O RDERABLES Performing Organization Address [facility] Co de Phone Number [facility] [place] [address] * Type and Screen Validity (05/02/2023 9:27 AM EDT) T&S only valid at [facility] Comment:This Type and Screen result is only valid at the [facility] Blood 05/02/2023 9:27 AM EDT 05/02/2023 9:43 AM EDT Narrative Resulting Agency Comment Spec In Lab Catherine Hamilton MD BLOOD BANK LAB OR DERABLES Performing Organization Address [facility] Co de Phone Number [facility] [place] [address] * ABORH Recheck Status (05/02/2023 9:27 AM EDT) ABORH Recheck Order Order Placed [facility] ABORH Type Recheck Complete [facility] Blood 05/02/2023 9:27 AM EDT 05/02/2023 9:43 AM EDT Narrative Resulting Agency Comment Spec In Lab Catherine Hamilton MD BLOOD BANK LAB OR DERABLES Performing Organization Address [facility]/ZIP Co de Phone Number [facility] [place] [address] * Antibody screen (05/02/2023 9:27 AM EDT) Pathologist [facility] Ab Screen Interp Negative [facility] Expires at 2359 on: 05/05/2023 [facility] Blood 05/02/2023 9:27 AM EDT 05/02/2023 9:43 AM EDT Narrative Resulting Agency Comment Spec In Lab Catherine Hamilton MD BLOOD BANK LAB OR DERABLES Performing Organization Address [facility]/ZIP Co de Phone Number [facility] [place] [address] * ABO/Rh Typing (05/02/2023 9:27 AM EDT) Pathologist [facility] ABORH Type A Pos [facility] Blood 05/02/2023 9:27 AM EDT 05/02/2023 9:43 AM EDT Narrative Resulting Agency Comment Spec In Lab Catherine Hamilton MD BLOOD BANK LAB OR DERABLES Performing Organization Address [facility] de Phone Number [facility] [place] [address] * Differential, Automated (05/02/2023 9:27 AM EDT) [facility] Neutrophil % 63.8 % [facility] Neutrophil Absolute 3.23 1.70 - 6.10 x10(3)/[facility] Lymph % 22.1 % [facility] Lymphocytes Abs 1.1 0.9 - 3.2 x10(3)/[facility] Monocyte % 9.9 % [facility] Monocyte Abs 0.5 0.3 - 0.9 x10(3)/[facility] Eos % 2.4 % [facility] Eosinophils Abs 0.1 0.0 - 0.4 x10(3)/[facility] Basophil % 1.6 % [facility] Baso Absolute 0.1 0.0 - 0.1 x10(3)/[facility] Immature Gran % 0.20 % [facility] Comment: Immature granulocytes(IG's)percentage and absolute count will include metamyelocytes, myelocytes, and promyelocytes. Blood smears from CBCs yielding IG's will be scanned manually for concordance. If this scan disagrees with the automated IG or if promyelocytes are noted, a manual differential will be performed. Immature Gran Absolute 0.01 0.00 - 0.04 x10(3)/mcL [facility] Blood 05/02/2023 9:27 AM EDT 05/02/2023 9:39 AM EDT Narrative Resulting Agency Comment Spec In Lab Catherine Hamilton MD HEMATOLOGY ORDERA BLES [facility] [place] [address] * (ABNORMAL) Hemogram (05/02/2023 9:27 AM EDT) White Blood Cell 5.1 4.0 - 9.5 x10(3)/mc L [facility] Red Blood Cell 5.00 4.00 - 5.21 x10(6)/mc L [facility] Hemoglobin 15.1 11.7 - 15.5 g/dL [facility] Hematocrit 45.9(H) 35.7 - 45.8 % [facility] Mean Cell Volume 91.8 82.6 - 94.4 fL [facility] Mean Cell Hemoglobin 30.2 27.1 - 32.0 pg [facility] Mean Cell Hemoglobin Concentration 32.9 31.7 - 35.0 g/dL [facility] Platelet 215 145 - 357 x10(3)/mc L [facility] RDW Standard Deviation 45.7 37.0 - 46.0 fL [facility] RDW coefficient of variation 13.6 11.5 - 14.1 % [facility] Mean Platelet Volume 10.8 7.6 - 12.9 fL [facility] NRBC% auto 0.0 % [facility] NRBC Absolute 0.000 0.000 - 0.000 x10(3)/mc L [facility] Blood 05/02/2023 9:27 AM EDT 05/02/2023 9:39 AM EDT Narrative Resulting Agency Comment Spec In Lab Catherine Hamilton MD HEMATOLOGY CL ARREDONDO [facility] [place] [address] * (ABNORMAL) BMP w/fasting Glucose (05/02/2023 9:27 AM EDT) Glucose Fasting 114(H) 65 - 99 mg/dL [facility] Comment: ?Fasting* Glucose Interpretive Criteria Normal [...] of Diabetes Mellitus, Position Statement from the [place] [employer]. ??Diabetes Care, Volume 33, Supplement 1, Sep 2009 Blood Urea Nitrogen 32(H) 8 - 18 mg/dL [facility] Creatinine 1.35(H) 0.70 - 1.20 mg/dL [facility] Sodium 137 135 - 145 mmol/L [facility] Potassium 4.8 3.5 - 5.0 mmol/L [facility] Comment: Please note: ??Patients with WBC >100,000 may have falsely elevated Potassium levels. ??For accurate Potassium quantification in these patients send serum separator tube (gold top) for subsequent determinations. ??Contact the Clinical Chemistry Laboratory if there are any questions. Chloride 104 98 - 107 mmol/L [facility] Carbon Dioxide 22 22 - 31 mmol/L [facility] Anion Gap 11 5 - 15 mmol/L [facility] Calcium 10.0 8.5 - 10.5 mg/dL [facility] Est Glomerular Filtration Rate 43(L) >=60 mL/min/1. 73 m?? [facility] Comment: This patient's estimated GFR [...] MD CHEMISTRY ORDERAB LES Performing Organization Address [facility] Co de Phone Number [facility] [place] [address] * Prothrombin Time (05/02/2023 9:27 AM EDT) Prothrombin Time 11.5 9.4 - 12.5 sec [facility] International Normalization Ratio 1.0 [facility] Comment: An INR <2.0 indicates adequate [...] MD HEMATOLOGY ORDERA BLES Performing Organization Address [facility] Co de Phone Number [facility] [place] [address] documented in this encounter Visit Diagnoses Diagnosis HFrEF (heart failure with reduced ejection fraction) HFrEF (heart failure with reduced ejection fraction) documented in this encounter Active and Recently [...] 1720, Administer over 2 Minutes, Intra-Operative (Intra-Procedure) 1656 (Given - Provid er: Franco Harry MD) documented in this encounter Care Teams Shuttle Filler Relationship Specialty Start Date End Date Sammie Cordero MD [address] [place] [address] PCP - General Family Medicine 09/12/19 documented as of this encounter
--- OUTSIDE RECORDS SUMMARY | 2024-05-12 16:42 | XMS_ITS | Encounter Summary ---
Author Organization [facility] [place] [address] Care Team Providers Care Instructional Systems Specialist Name Role Phone Sammie Cordero MD Primary Care Provider Reason for Visit * Reason Onset Date Comments Medication Refill 03/10/2020 Encounter Details Date Type Department Care Team (Late st Contact Info) Description 03/10/2020 [place] [address] Guido Diamond Jr., MD [facility] [place] [address] Sarcoidosis (Primary Dx) Social History Tobacco Use Types Packs/Day Years Used Date Smoking Tobacco: Never Smokeless Tobacco: Never Sex and Gender Information Value Date Recorded Sex Assigned at Female 11/05/2020 8:19 AM EST Gender Identity Not on file Sexual Orientation Straight 11/05/2020 8: 19 AM EST documented as of this encounter Plan of Treatment Not on file documented as of this encounter Visit Diagnoses Diagnosis Sarcoidosis- Primary documented in this encounter Care Teams Instructional Systems Specialist Relationship Specialty Start Date End Date Sammie Cordero MD [address] [place] [address] PCP - General Family Medicine 09/12/19 documented as of this encounter
--- OUTSIDE RECORDS SUMMARY | 2024-05-12 16:42 | XMS_ITS | Encounter Summary ---
[place] [address] Care Team Providers Care Dental Tech Name Role Phone Sammie Cordero MD Primary Care Provider [phone] Encounter Details Date Type Department Care Team (Latest Contact Info) Description 03/22/2020 9:35 AM EDT - 03/22/2020 11:59 PM EDT Hospital [place] [id number] Nodule of left lung Discharge Disposition: Home Social History Tobacco Use [...] mouth every 4 hours as needed. 12/31/2018 furosemide (LASIX) 20 mg Tablet 06/12/2019 spironolactone [...] mg Take 100 mg by mouth daily. lisinopriL (Prinivil;Zestril) 20 mg Tablet TK 1 T PO D 02/19/2020 08/20/2023 predniSONE (Deltasone) 5 mg TabletIndications:Sarco idosis Take 1 tablet by mouth daily. 30 tablet 5 03/11/2020 08/20/2023 azithromycin (ZITHROMAX) 250 mg Tablet Take 1 tablet by mouth daily. Day1:take 2 tablets daily, Day 2-5:Take one tablet daily 6 tablet 09/12/2019 08/20/2023 dilTIAZem (TIAZAC) 180 mg Capsule,Sustained Action 24 hr take 1 capsule by mouth once daily 0 02/07/2019 05/02/2023 cyanocobalamin, vitamin B-12, 100 mcg Tablet Take 100 mcg by mouth daily. 08/20/2023 metoprolol succinate (TOPROL-XL) 100 mg Tablet Sustained Release 24 hr Take 200 mg by mouth once. 0 11/07/2018 05/07/2023 documented as of this encounter Procedure Notes * Willie Grajeda MD - 03/22/2020 3:15 PM EDTAssociated Order(s): PULMONARY FUNCTION TEST Spirometry: FVC is normal FEV1 is normal FEV1 / FVC ratio is normal Diffusion: DLCO is decreased Interpretation: ?? Normal spirometry ?? Compared to spirometry from 2019 today's values are improved ?? Mild reduction in diffusing capacity ?? Causes of a low diffusing capacity include interstitial lung disease, parenchymal lung disease such as emphysema, anemia and pulmonary hypertension Willie Grajeda MD documented in this encounter Plan of Treatment Not on file documented as of this encounter Procedures Procedure Name Priority Date/Time Associated Diagnosis Comments COMMON PULMONARY FUNCTION TEST Routine 03/22/2020 3:15 PM EDT Nodule of left lung documented in this encounter Results * Pulmonary Function Testing (03/22/2020 3:15 PM EDT) Narrative Willie Grajeda MD - 03/22/2020 3:15 PM EDT Willie Grajeda MD ? 03/22/2020 ??3:17 PM Spirometry: FVC is normal FEV1 is normal FEV1 / FVC ratio is normal Diffusion: DLCO is decreased Interpretation: ?? Normal spirometry ?? Compared to spirometry from 2019 today's values are improved ?? Mild reduction in diffusing capacity ?? Causes of a low diffusing capacity include interstitial lung disease, parenchymal lung disease such as emphysema, anemia and pulmonary hypertension Willie Grajeda MD Guido Diamond Jr., MD PFT ORDERABLES documented in this encounter Visit Diagnoses Diagnosis Nodule of left lung Solitary pulmonary nodule documented in this encounter Care Teams Dental Tech Relationship Specialty Start Date End Date Sammie Cordero MD [facility] [address] [facility] [address] [place] [address] PCP - General Family Medicine 09/12/19 documented as of this encounter
--- OUTSIDE RECORDS SUMMARY | 2024-05-12 16:42 | XMS_ITS | Encounter Summary ---
[place] [address] Care Team Providers Care Head Kiln Operator Name Role Phone Naveed Mckinney MD Primary Care Provider [phone] Reason for Referral * Diagnostic Test (Routine) - Closed Specialty Diagnoses / Procedures Referred By Annie torres Referred To Contact Radiology Diagnoses Sarcoidosis Procedures CT Chest w Contrast CT Chest wo Contrast (Generic) Hai Salinas MD [facility] [place] [address] [facility] [place] [address] Referral ID Status Reason Start Date Expiration Date V isits Requested Visits Authorized [id number] Closed Specialty Service Requested 05/13/2019 07/11/2019 1 1 Reason for Visit * Reason Comments Referral * Consultation (Urgent) - Closed Specialty Diagnoses / Procedures Referred By Annie torres Referred To Contact Pulmonology Diagnoses NEWLY DIAGNOSED SARCOID Naveed Mckinney MD [address] [facility] [facility] [place] [address] [facility] Pulmonology [address] [place] [address] Referral ID Status Reason Start Date Expiration Date V isits Requested Visits Authorized [id number] Closed Consult, Test & Treat Connection Center 01/29/2019 01/29/2020 1 1 Encounter Details Date Type Department Care Team (Late st Contact Info) Description 02/18/2019 9:00 AM EDT Office Visit Pulmonology at [facility] [place] [address] Hai Salinas MD [facility] [place] [address] Sarcoidosis Social History Tobacco Use Types Packs/Day Years Used Date Smoking Tobacco: Never Smokeless Tobacco: Never Sex and Gender Information Value Date Recorded Sex Assigned at Female 11/05/2020 8:19 AM EST Gender Identity Not on file Sexual Orientation Straight 11/05/2020 8: 19 AM EST documented as of this encounter Last Filed Vital Signs Vital Sign Reading Time Taken Comments Blood Pressure 142/71 02/18/2019 8:42 AM EDT Pulse 64 02/18/2019 8:42 AM EDT Temperature - - Respiratory Rate 16 02/18/2019 8:42 AM EDT Oxygen Saturation 100% 02/18/2019 8:42 AM EDT Inhaled Oxygen Concentration - - Weight 83.5 kg (184 lb) 02/18/2019 8:42 AM EDT Height 172.2 cm (5' 7.8) 02/18/2019 8:42 AM EDT Body Mass Index 28.14 02/18/2019 8:42 AM EDT documented in this encounter Patient Instructions * Patient Instructions* Hai Salinas MD - 02/18/2019 9:00 AM EDT Continue prednisone at 40mg daily till 03/08. Then 35mg daily for 2 weeks, 30mg daily for 2 weeks....( reduce by 5mg, every 2 weeks). To a goal of 10mg daily and please continue the dose till you see me. ( about 3 months). documented in this encounter Progress Notes * Hai Salinas MD - 02/18/2019 9:00 AM EDT Images from the original note were not included. Pulmonary Clinic Consult Note Reason for Consult: I was asked by Naveed Mckinney MD to evaluate this patient for sarcoidosis I have personally interviewed and examined the patient, reviewed history, radiographic studies( if any) and laboratory data(if any). HPI: This is a 63 y.o. female, never smoker, was referred to us for newly diagnosed sarcoidosis. Was seen by Dr. Mckinney, her primary care provider in December for a several month history of cough and shortness of breath. The work-up revealed pulmonary nodules, renal insufficiency, hypercalcemia and multiplecystic bony lesions. Ultimately, she underwent a bone biopsy, which revealed non necrotizing granuloma ( no path report or culture available to me) . Diagnosis of sarcoidosis was made based on the pathology, she started on 60 mg of prednisone on 01/31/2019. After one week, she has reduced to 40mg daily, which is the dose she has been taking for the last 7 days. She feel improvement of her dyspnea and cough. She has history of heart failure of unclear etiology. It was diagnosed about 2 years ago, when she felt unusual fatigue. She was found to have low numbers by ECHO ( probably EF), which has improved( but has not normalized) on a recent ECHO back in August 2018, according to the patient. She also developed acute renal failure, seen here in nephrology, was diagnosed for hypercalciuria induced renal failure. Though I don't have access to those chemistry data, sCr has improved accordingto the patient. Her CT scan of the chest on 12/24/2018 demonstrated diffuse osseous lytic lesions, bilateral apical reticulonodular density, and a 1.8 cm nodule with fat density in the lingula possible hamartoma. She had a pulmonary function testing today, which demonstrated Problem List: Patient Active Problem List Diagnosis Date Noted ??? 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 ARF (acute renal failure) 12/31/2018 ??? Hypercalcemia 12/31/2018 ??? Nodule of left lung 12/31/2018 ??? Bone lesion 12/31/2018 PMHx: Past Medical History: Diagnosis Date ??? ARF (acute renal failure) 12/31/2018 ??? Bone lesion 12/31/2018 ??? 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 Hypercalcemia 12/31/2018 ??? Nodule of left lung 12/31/2018 FHx: No family history on file. Social Hx: Social History Tobacco Use ??? Smoking status: Never Smoker ??? Smokeless tobacco: Never Used Substance Use Topics ??? Alcohol use: Not on file ??? 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 Allergy: No Known Allergies Medications: Outpatient Medications Marked as Taking for the 02/18/19 encounter (Office Visit) with Hai Salinas MD Medication Sig Dispense Refill ??? predniSONE (DELTASONE) 20 mg Tablet take 3 tablet by mouth once daily 0 ??? ELIQUIS 2.5 mg Tablet take 1 tablet by mouth twice a day 0 ??? dilTIAZem (TIAZAC) 180 mg Capsule,Sustained Action 24 hr take 1 capsule by mouth once daily 0 ??? alendronate (FOSAMAX) 70 mg Tablet take 1 tablet by mouth every week 0 ??? vitamin E (VITAMIN E) 400 unit Capsule Take by mouth. Indications: Taking 500mg ??? multivitamin (THERAGRAN) Tablet Take 1 tablet by mouth daily. ??? ascorbic acid (VITAMIN C) 500 mg Tablet Take 500 mg by mouth daily. ??? fish oil-omega-3 fatty acids 1,000 mg Capsule Take 1 g by mouth daily. ??? Garlic Capsule Take by mouth daily. ??? thiamine (THIAMINE) Take 100 mg by mouth daily. ??? cyanocobalamin, vitamin B-12, 100 mcg Tablet Take 100 mcg by mouth daily. ??? metoprolol succinate (TOPROL-XL) 100 mg Tablet Sustained Release 24 hr Take 100 mg by mouth once. 0 ROS: x: positive. [ ] Shortness of breath [ ] Abdominal pain or bloating [ ] Frequent or chronic cough [ ] Weight gain or loss [ ] Coughing up blood [ ] Chest pain [ ] Nose, sinus, mouth, throat problems [ ] Palpitations or flutter [ ] Fevers or severe chills [ ] Swelling of hands feet ankles [ ] Night sweats [ ] Convulsions or seizures [ ] Enlarged or swollen lymph glands [ ] Frequent or severe headache [ ] Skin disease or rash [ ] Fainting or loss of consciousness [ ] Easy bruising or bleeding [ ] Extreme fatigue or weakness [ ] Significant joint pains or stiffness [ ] Depression [ ] Changes in bowel habits [ ] Changes in sleep pattern [ ] Changes in appetite [ x ] All unmarked were reviewed and found negative. [ ] other system: Vitals and Physical Exam: BP 142/71 Pulse 64 Resp 16 Ht 172.2 cm (5' 7.8) Wt 83.5 kg (184 lb) SpO2 100% BMI 28.14 kg/m?? Gen: comfortable. HEENT: Pupils equal and round. EOMI, no pallor no icteric sclera on conjunctiva No thrush Neck: No stridor No cervical LAP Chest: CTA without wheezing/rhonchi/crackles Symmetric excursion. Cor: RRR, S1S2, No MRG. Abd: ND Extrem: no C/C/E. Labs/Tests: Diagnostic studies: -CXR: -CT: 12/24/2018 Diffuse osseous lytic lesions. 1.8 cm well circumscribed a nodule in the lingular with some fat density, possible hamartoma. Bilateral apex reticulonodular densities. -PFTs: date FVC FEV1 FEV/FVC VC TLC RV RV/TLC Dsb SpO2 02/18/2019 2.78 76 2.08 74 75 16.07 71 ## 98 # # no desaturation after 375. ## 80% when adjusted to Hb 10.2 ( 01/24/2019) -ECHO: -Serology: -PET: -Biopsy: -Other: Labs 01/21/2019 Bone biopsy Non-caseating granuloma. Negative special staining for pathogens. Summary: -sacordosis. -SPN in lingular, suspected hamartoma. Other Issues: -h/o heart failure( r/o cardiac sarcoid) -h/o ARF, due to hypercalcemia -lytic bone region ( sarcoid). Impression/recommendation: -63 yo woman was referred to me for recently diagnosed sarcoidosis by bone biospy on a lytic lesion. Her presenting sx was dyspnea and cough, which has improved after she started on prednisone on 02/06 at 60mg daily dosing, which has been reduced to 40 mg daily since 02/13. She was diagnosed for heart failure with unclear etiology about 2 years ago. Also she was recently diagnosed for acute renal failure, presumably due to hypercalcemia. ( though not available to me), recent lab showed improving sCr, according to the patient. -Her PFT showed mild reduction of FVC and FEV1. DLco is low but normalizes when corrected to Hb. CTshowed b/l apical reticulonodular changes, c/w sarcoidosis. She also has solitary nodule, well circumscribed in lingular. Notable is that the nodule appears to have low attenuation area inside, probably fat, suggestive for hamartoma. -she is minimally symptomatic at this time. Plan / recommendation. -continue 40mg predsnione daily for total of 3 weeks then we will start taper 5mg every 2 weeks to a goal of 10mg daily. -I will request [facility] to send us the available labs. I will need to make sure her sCr is acceptable for prophylactic bactrim administration. -She will be seen by her regular vegetable grower next week. -She has already been scheduled with a apiarist for possible cardiac sarcoid. -need to monitor for sCr. If arises again, consider possibility of sarcoid interstitial nephritis and re-consult to nephrology. -also need to check LFT, if it has not been done. ( will take a look of the lab she had at [facility]). -will have her back in 3 months with PFT and another non-contrast CT -Overall, I agree, the dx appears to be sarcoidosis. Her lung disease is quite mild ( by PFT and CT) and immunosuppresive therapy may need to be adjusted to/ directed by cardiac disease/ apiarist, if she is found to have cardiac sarcoid, which is associated with high rate of adverse events and much worse prognosis than lung disease. Will await for input by apiarist. 70 mins of this 80 min visit was used in conversation with the patient (and accompanying family members, if present) regarding my impressions and recommendations and providing counseling. All the questions were answered. I have spent an additional time in reviewing charts/records/labs/tests, or disc ussion with other health care providers. This does NOT include the time spent in ( ) Smoking cessation counseling ( ) inhaler technique demonstration and teaching. ( checked if applicable) - I personally reviewed ( ) radiographic images. ( ) pulmonary function testing DATA ( ) Laboratory DATA ( apply if checked ) Thank you very much for participating in the care of this patient. Please contact us at [phone] for any further questions or requests. Addendum: sCr is high. Considering risk and benefit, will NOT give bactrim. documented in this encounter Plan of Treatment Not on file documented as of this encounter Results * Pulmonary Function Testing (05/23/2019 5:53 PM EDT) Narrative Hai Salinas MD - 05/23/2019 5:53 PM EDT Hai Salinas MD ? 05/23/2019 ??5:53 PM The study shows Isolated diffusion abnormality( i.e. Normal spirometry with low DLco), which can be seen in anemia, early emphysema, early interstitial lung disease and pulmonary vascular disorder. ??Clinical correlation is recommended. ?? Hai Salinas MD PFT ORDERABLES * CT Chest w Contrast (05/23/2019 5:51 [...] complete clearing of previously seen groundglass and [id number] in upper lung zones. Stable, part fatty, lingular nodule most consistent with benignhamartoma. Thank you for letting us participate in the care of this patient. Forquestions regarding this report, please contact the number below. Hai Salinas MD IMG CT ORDERABLES documented in this encounter Visit Diagnoses Diagnosis Sarcoidosis Sarcoidosis Sarcoidosis documented in this encounter Care Teams Head Kiln Operator Relationship Specialty Start Date End Date Naveed Mckinney MD PCP - General General Internal Medicine 12/23/18 documented as of this encounter
--- OUTSIDE RECORDS SUMMARY | 2024-05-12 16:42 | XMS_ITS | Encounter Summary ---
[place] [address] Care Team Providers Care In Home Caregiver Name Role Phone Sammie Cordero MD Primary Care Provider [phone] Encounter Details Date Type Department Care Team (Late st Contact Info) Description 02/03/2020 Telephone [place] [phone] Dianna King LNA Social History Tobacco Use Types Packs/Day Years Used Date Smoking Tobacco: Never Smokeless Tobacco: Never Sex and Gender Information Value Date Recorded Sex Assigned at Female 11/05/2020 8:19 AM EST Gender Identity Not on file Sexual Orientation Straight 11/05/2020 8: 19 AM EST documented as of this encounter Miscellaneous Notes * Telephone Encounter - Dianna King LNA - 02/03/2020 3:10 PM EDT Pt calling to schedule PFT and f/u with Dr. Diamond for 03/25. Letter sent. documented in this encounter Plan of Treatment Not on file documented as of this encounter Visit Diagnoses Not on filedocumented in this encounter Care Teams In Home Caregiver Relationship Specialty Start Date End Date Sammie Cordero MD [address] [place] [address] [address] [place] [address] PCP - General Family Medicine 09/12/19 documented as of this encounter
--- OUTSIDE RECORDS SUMMARY | 2024-05-12 16:42 | XMS_ITS | Encounter Summary ---
[place] [address] Care Team Providers Care Rotary Bar Operator Name Role Phone Naveed Mckinney MD Primary Care Provider [phone] Encounter Details Date Type Department Care Team (Late st Contact Info) Description 02/18/2019 Tele[place] [phone] Melany Patel Social History Tobacco Use Types Packs/Day Years Used Date Smoking Tobacco: Never Smokeless Tobacco: Never Sex and Gender Information Value Date Recorded Sex Assigned at Female 11/05/2020 8:19 AM EST Gender Identity Not on file Sexual Orientation Straight 11/05/2020 8: 19 AM EST documented as of this encounter Miscellaneous Notes * Telephone Encounter - Melany Patel - 02/18/2019 10:39 AM EDT The patient came to the Exit desk. The appropriate Radiology Safety questions were asked and the patient was scheduled for her CT scan. documented in this encounter Plan of Treatment Not on file documented as of this encounter Visit Diagnoses Not on filedocumented in this encounter Care Teams Rotary Bar Operator Relationship Specialty Start Date End Date Naveed Mckinney MD PCP - General General Internal Medicine 12/23/18 documented as of this encounter
--- OUTSIDE RECORDS SUMMARY | 2024-05-12 16:42 | XMS_ITS | Encounter Summary ---
Author Organization [facility] [place] [address] Care Team Providers Care Corrections Corporal Name Role Phone Sammie Cordero MD Primary Care Provider [phone] Reason for Visit * Reason Onset Date Comments Medication Refill 05/07/2023 Metoprolol Encounter Details Date Type Department Care Team (Late st Contact Info) Description 05/07/2023 Refill Cardiology at [address] [phone] [place], [facility] [place] [address] Medication Refill (Metoprolol/) Social History Tobacco Use Types Packs/Day Years Used Date Smoking Tobacco: Never Smokeless Tobacco: Never Alcohol Use Standard Drinks/Week Comments Never 0 (1 standard drink = 0.6 oz pur e alcohol) [facility] Inpatient Questions Answer Date Recorded Does [...] encounter Miscellaneous Notes * Telephone Encounter - Priscilla Hahn RN - 05/07/2023 3:03 PM EDT Images from the original note were not included. GURMEET 04/04/23 # Atrial fibrillation - continue apixaban - stop diltiazem, as above - increase metoprolol to 200mg qHS 3 month follow-up with me with labs, Catherine Hamilton MD Advanced Heart Failure and Cardiac Transplant NOV Due 06/2023 Last RF unknown, Dr. Hamilton just increased dose Jlil Hernandez [facility] Cardiology Heart Failure Nurses When Jen was in to see Madisyn last she had increased her metoprolol dosage and now she only has enough for tonight. Could you please send a new rx to Sue Diamond in [place]? documented in this encounter Plan of Treatment Not on file documented as of this encounter Visit Diagnoses Diagnosis HFrEF (heart failure with reduced ejection fraction) documented in this encounter Care Teams Corrections Corporal Relationship Specialty Start Date End Date Sammie Cordero MD [facility] [address] [place] [address] PCP - General Family Medicine 09/12/19 documented as of this encounter
--- OUTSIDE RECORDS SUMMARY | 2024-05-12 16:42 | XMS_ITS | Encounter Summary ---
Author Organization [facility] [place] [address] Care Team Providers Care Roll Panner Name Role Phone Sammie Cordero MD Primary Care Provider [phone] Encounter Details Date Type Department Care Team (Latest Contact Info) Description 03/25/2020 1:00 PM EDT TH Visit (TeleHealth) [place] [address] Guido Diamond Jr., MD [facility] [address] [place] [address] Sarcoidosis (Primary Dx) Social History Tobacco Use Types Packs/Day Years Used Date Smoking Tobacco: Never Smokeless Tobacco: Never Sex and Gender Information Value Date Recorded Sex Assigned at Female 11/05/2020 8:19 AM EST Gender Identity Not on file Sexual Orientation Straight 11/05/2020 8: 19 AM EST documented as of this encounter Progress Notes * Guido Diamond Jr., MD - 03/25/2020 1:00 PM EDT Pulmonary Return (Telephone/Telehealth) HPI: Ms. Guevara is a 64 y.o. female previously followed by Dr. Salinas. This is a scheduled follow-up for management of sarcoidosis. Due to the COVID-19 pandemic, the clinic visit is conducted as a telephone visit. She is doing well. Currently using prednisone at 5 mg daily. No respiratory symptoms. Eager to discontinue prednisone altogether. Had PFTs earlier this week which show continued improvement. No COVID concerns at present. Practicing social distancing, wearing a mask when out in public. Patient Active Problem List Diagnosis Code ??? 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 ARF (acute renal failure) N17.9 ??? Hypercalcemia E83.52 ??? Nodule of left lung R91.1 ??? Bone lesion M89.9 Allergies Patient has no known allergies. Medications Current Outpatient Medications on File Prior to Visit Medication Sig Dispense Refill ??? lisinopriL (Prinivil;Zestril) 20 mg Tablet TK 1 T PO D ??? predniSONE (Deltasone) 5 mg Tablet Take 1 tablet by mouth daily. 30 tablet 5 ??? azithromycin (ZITHROMAX) 250 mg Tablet Take 1 tablet by mouth daily. Day1:take 2 tablets daily,Day 2-5:Take one tablet daily (Patient not taking: Reported on 03/24/2020) 6 tablet 0 ??? furosemide (LASIX) 20 mg Tablet ??? spironolactone (ALDACTONE) 25 mg Tablet TAKE 1 TABLET BY MOUTH ONCE DAILY 2 ??? ELIQUIS 2.5 mg Tablet take 1 [...] Take 100 mg by mouth once. 0 No current facility-administered medications on file prior to visit. Social History Socioeconomic History ??? Marital status: Spouse name: Not on file ??? Number of children: Not on file ??? Years of education: Not on file ??? Highest education level: Not on file Occupational History ??? Not on file Social Needs ??? Financial resource strain: Not on file ??? Food insecurity Worry: Not on file Inability: Not on file ??? Transportation needs Medical: Not on file Non-medical: Not on file Tobacco Use ??? Smoking status: Never Smoker ??? Smokeless tobacco: Never Used Substance and Sexual Activity ??? Alcohol use: Not on file ??? Drug use: Not on file ??? Sexual activity: Not on file Lifestyle ??? Physical activity Days per week: Not on file Minutes per session: Not on file ??? Stress: Not on file Relationships ??? Social connections Talks on phone: Not on file Gets together: Not on file Attends restorationism service: Not on file Active member of club or organization: Not on file Attends meetings of clubs or organizations: Not on file Relationship status: Not on file ??? Intimate partner violence Fear of current or ex partner: Not on file Emotionally abused: Not on file Physically abused: Not on file Forced sexual activity: Not on file Other Topics Concern ??? Not on file Social History Narrative ??? Not on file Physical Exam - due to COVID-19 pandemic, clinic visit is performed as a telephone call. No formal physical examination is possible. During the conversation, Ms. Guevara is pleasant and verbally interactive. No cough, wheeze, or hoarseness. Strength of voice is normal. Objective Data Laboratory 09/12/2019 NA 141, K 4.1, CL 104, CO2 23, BUN 28, Cr 1.76 01/24/2019 WBC 5.2, Hgb 10.2, PLT 189; Eos 4.2% Radiology 05/23/2019 CCT w/ contrast shows interval near total resolution of prior ground glass opacities and tree-in-bud opacities. Lingular 16 mm nodule stable in size. No hilar or mediastinal abnormalities. Cardiac Testing n/a Pulmonary Function Testing 03/22/2020 FEV1 2.56L (98%), FVC 3.24L (96%), FEV1/FVC 0.79; DLCO 71% 05/23/2019 FEV1 2.54L (93%), FVC 3.41L (95%), FEV1/FVC 0.74; DLCO 68% 02/18/2019 FEV1 2.08L (74%), FVC 2.78L (76%), FEV1/FVC 0.75; DLCO 71% Assessment Sarcoidosis based upon bone biopsy. She has been on prednisone since 02.06.2019, on 5 mg daily starting 08/2019. She is asymptomatic. Had plans to return in November 2019, but deferred due to COVID-19 pandemic. Prior plan was to taper prednisone off in March. Based on her current clinical status I thinkthis remains an appropriate plan. Followed by Cardiology, Ophthalmology for potential sarcoid involvement of heart and eye respectively. No active issues. Plan Ok to stop prednisone. Will transition to 5 mg every other day for the next 10- 14 days, then stop entirely. She will monitor for changes in symptoms (cough, wheeze, chest tightness) and notify me if these recur. Otherwise, will plan follow-up visit in ~ 4 months for repeat (baseline) spirometry andDLCO. Telephone: 8 minutes. Chart review and documentation: 20 minutes. --Fidelina Diamond MD documented in this encounter Plan of Treatment Not on file documented as of this encounter Visit Diagnoses Diagnosis Sarcoidosis- Primary documented in this encounter Care Teams Roll Panner Relationship Specialty Start Date End Date Sammie Cordero MD [address] [place] [address] PCP - General Family Medicine 09/12/19 documented as of this encounter
--- OUTSIDE RECORDS SUMMARY | 2024-05-12 16:42 | XMS_ITS | Encounter Summary ---
[place] [address] Care Team Providers Care Certified Residential Medication Aide Name Role Phone Sammie Cordero MD Primary Care Provider [phone] Encounter Details Date Type Department Care Team (Latest Contact Info) Description 04/04/2023 12:40 PM EDT Laboratory Appointment Lab [address] [place] [address] HFrEF (heart failure with reduced ejection fraction) [...] Associated Diagnosis Comments PRO-BRAIN NATRIURETIC PEPTIDE Routine 04/04/2023 12:34 PM EDT HFrEF (heart failure with reduced ejection fraction) BASIC METABOLIC PANEL Routine 04/04/2023 12:34 PM EDT HFrEF (heart failure with reduced ejection fraction) documented in this encounter Results * (ABNORMAL) Basic Metabolic Panel (non-fasting) (04/04/2023 12:34 PM EDT) Glucose 135 65 - 199 mg/dL [facility] Comment:Diabetes: >=200 mg/d L plus symptoms Blood Urea Nitrogen 27(H) 8 - 18 mg/dL [facility] Creatinine 1.49(H) 0.70 - 1.20 mg/dL [facility] Sodium 140 135 - 145 mmol/L [facility] Potassium 4.2 3.5 - 5.0 mmol/L [facility] Comment: Please note: ??Patients with WBC >100,000 may have falsely elevated Potassium levels. ??For accurate Potassium quantification in these patients send serum separator tube (gold top) for subsequent determinations. ??Contact the Clinical Chemistry Laboratory if there are any questions. Chloride 106 98 - 107 mmol/L [facility] Carbon Dioxide 22 22 - 31 mmol/L [facility] Anion Gap 12 5 - 15 mmol/L [facility] Calcium 9.2 8.5 - 10.5 mg/dL [facility] Est Glomerular Filtration Rate 38(L) >=60 mL/min/1. 73 m?? [facility] Comment: This patient's estimated GFR was [...] and symptoms in addition to eGFR. Blood 04/04/2023 12:3 4 PM EDT 04/04/2023 12:46 PM EDT Narrative Resulting Agency Comment Spec In Lab Catherine Hamilton MD CHEMISTRY ORDERAB LES [facility] [place] [address] * (ABNORMAL) pro-Brain Natriuretic Peptide (04/04/2023 12:34 PM EDT) NT-proBNP 1,719(H) <=124 pg/mL [facility] Blood 04/04/2023 12:3 4 PM EDT 04/04/2023 12:46 PM EDT Narrative Resulting Agency Comment Spec In Lab Catherine Hamilton MD CHEMISTRY ORDERAB LES [facility] [place] [address] documented in this encounter Visit Diagnoses Diagnosis HFrEF (heart failure with reduced ejection fraction) documented in this encounter Care Teams Certified Residential Medication Aide Relationship Specialty Start Date End Date Sammie Cordero MD [address] [place] [address] PCP - General Family Medicine 09/12/19 documented as of this encounter
--- OUTSIDE RECORDS SUMMARY | 2024-05-12 16:42 | XMS_ITS | Encounter Summary ---
[facility] [place] [address] Care Team Providers Care Hemodialysis Charge Nurse Name Role Phone Sammie Cordero MD Primary Care Provider [phone] Encounter Details Date Type Department Care Team (Late st Contact Info) Description 03/24/2020 Telephone [place] [phone] Estephanie Olmos, INVESTIGATIONS CHIEF Social History Tobacco Use Types Packs/Day Years Used Date Smoking Tobacco: Never Smokeless Tobacco: Never Sex and Gender Information Value Date Recorded Sex Assigned at Female 11/05/2020 8:19 AM EST Gender Identity Not on file Sexual Orientation Straight 11/05/2020 8: 19 AM EST documented as of this encounter Miscellaneous Notes * Telephone Encounter - Estephanie Olmos - 03/24/2020 10:29 AM EDT [facility] Pre-Telemedicine Phone Note [] Patient not reached [x] Patient reached and the following information was reviewed/obtained per protocol: [x] Confirmed patient name and date of [] Confirmed telemedicine bennie (Vidyo and Virtual Visit) is downloaded and functioning [x] Confirmed location of patient - TeleVisit is taking place in [x] [place] [] [place] [] If not on [facility], working on signing up for [facility] [] Confirmed has completed any pre-visit questionnaires [] If has not received required pre-visit questionnaires, send via [facility] [] Reviewed patient medications [] Documented self-reported vitals: [x] Weight: 200 lbs [x] Height 5 ft 8 in [] pulse recorded: [] Other information or concerns documented in this encounter Plan of Treatment Not on file documented as of this encounter Visit Diagnoses Not on filedocumented in this encounter Care Teams Hemodialysis Charge Nurse Relationship Specialty Start Date End Date Sammie Cordero MD [facility] [address] [facility] [address] [place] [address] PCP - General Family Medicine 09/12/19 documented as of this encounter
--- OUTSIDE RECORDS SUMMARY | 2024-05-12 16:42 | XMS_ITS | Encounter Summary ---
[place] [address] Care Team Providers Care Construction Supervisor Name Role Phone Sammie Cordero MD Primary Care Provider [phone] Encounter Details Date Type Department Care Team (Late st Contact Info) Description 12/11/2019 Telephone [place] [phone] Cecelia Garcia Social History Tobacco Use Types [...] on filedocumented in this encounter Care Teams Construction Supervisor Relationship Specialty Start Date End Date Sammie Cordero MD [address] [place] [address] PCP - General Family Medicine 09/12/19 documented as of this encounter
--- OUTSIDE RECORDS SUMMARY | 2024-05-12 16:42 | XMS_ITS | Encounter Summary ---
[place] [address] Care Team Providers Care Mold Release Worker Name Role Phone Naveed Mckinney MD Primary Care Provider [phone] Encounter Details Date Type Department Care Team (Latest Contact Info) Description 05/23/2019 3:30 PM EDT - 05/23/2019 11:59 PM EDT Hospital Encounter [place] [address] Sarcoidosis Discharge Disposition: Home Social History Tobacco [...] as of this encounter Procedure Notes * Hai Salinas MD - 05/23/2019 5:53 PM EDTAssociated Order(s): PULMONARY FUNCTION TEST The study shows Isolated diffusion abnormality( i.e. Normal spirometry with low DLco), which can beseen in anemia, early emphysema, early interstitial lung disease and pulmonary vascular disorder. Clinical correlation is recommended. documented in this encounter Plan of Treatment Not on file documented as of this encounter Procedures Procedure Name Priority Date/Time Associated Diagnosis Comments COMMON PULMONARY FUNCTION TEST Routine 05/23/2019 5:53 PM EDT Sarcoidosis documented in this encounter [...] recommended. ?? Hai Salinas MD PFT ORDERABLES documented in this encounter Visit Diagnoses Diagnosis Sarcoidosis documented in this encounter Care Teams Mold Release Worker Relationship Specialty Start Date End Date Naveed Mckinney MD PCP - General General Internal Medicine 12/23/18 documented as of this encounter
--- OUTSIDE RECORDS SUMMARY | 2024-05-12 16:42 | XMS_ITS | Encounter Summary ---
[place] [address] Care Team Providers Care Pediatric Immunologist Name Role Phone Naveed Mckinney MD Primary Care Provider [phone] Reason for Visit * Reason Onset Date Comments Medication Refill 03/05/2019 Encounter Details Date Type Department Care Team (Late st Contact Info) Description 03/05/2019 Refill [place] [address] Ashutosh Mendez RN Sarcoidosis Social History Tobacco Use Types Packs/Day Years Used Date Smoking Tobacco: Never Smokeless Tobacco: Never Sex and Gender Information Value Date Recorded Sex Assigned at Female 11/05/2020 8:19 AM EST Gender Identity Not on file Sexual Orientation Straight 11/05/2020 8: 19 AM EST documented as of this encounter Plan of Treatment Not on file documented as of this encounter Visit Diagnoses Diagnosis Sarcoidosis documented in this encounter Care Teams Pediatric Immunologist Relationship Specialty Start Date End Date Naveed Mckinney MD PCP - General General Internal Medicine 12/23/18 documented as of this encounter
--- OUTSIDE RECORDS SUMMARY | 2024-05-12 16:42 | XMS_ITS | Encounter Summary ---
[place] [address] Care Team Providers Care International Nurse Name Role Phone Naveed Mckinney MD Primary Care Provider [phone] Encounter Details Date Type Department Care Team (Late st Contact Info) Description 03/06/2019 [place] [phone] Ashutosh Mendez, RN Social History Tobacco Use Types Packs/Day Years [...] on filedocumented in this encounter Care Teams International Nurse Relationship Specialty Start Date End Date Naveed Mckinney MD PCP - General General Internal Medicine 12/23/18 documented as of this encounter
--- OUTSIDE RECORDS SUMMARY | 2024-05-12 16:42 | XMS_ITS | Encounter Summary ---
[place] [address] Care Team Providers Care Fruit Thinner Machine Operator Name Role Phone Sammie Cordero MD Primary Care Provider [phone] Encounter Details Date Type Department Care Team (Late st Contact Info) Description 01/30/2023 External Results Non-[place] [address] Social History Tobacco Use Types Packs/Day Years [...] Procedure Name Priority Date/Time Associated Diagnosis Comments [id number] Routine 05/26/2020 1:19 PM EDT documented in this encounter Results * ECHO COMPLETE (05/26/2020 1:19 PM EDT) Historical Provider CARDIOULTRASOUND PR[facility] documented in this encounter Visit Diagnoses Not on filedocumented in this encounter Care Teams Fruit Thinner Machine Operator Relationship Specialty Start Date End Date Sammie Cordero MD [facility] [address] [place] [address] PCP - General Family Medicine 09/12/19 documented as of this encounter
--- OUTSIDE RECORDS SUMMARY | 2024-05-12 16:42 | XMS_ITS | Encounter Summary ---
[place] [address] Care Team Providers Care Simplex Printer Installer Name Role Phone Sammie Cordero MD Primary Care Provider [phone] Encounter Details Date Type Department Care Team (Late st Contact Info) Description 09/12/2019 12:30 PM EST Laboratory Appointment Lab [address] [place] [address] Sarcoidosis Social History Tobacco Use Types Packs/Day [...] Procedure Name Priority Date/Time Associated Diagnosis Comments CALCIUM Routine 09/12/2019 12:16 PM EST Sarcoidosis HC VENIPUNCTURE Routine 09/12/2019 12:16 PM EST Sarcoidosis documented in this encounter Results * Calcium (09/12/2019 12:16 PM EST) Calcium 9.2 8.5 - 10.5 mg/dL [facility] Blood specimen (specimen) 09/12/2019 12:16 PM EST 09/12/2019 12:23 PM EST Narrative Resulting Agency Comment Spec In Lab Hai Salinas MD CHEMISTRY ORDERABLES [facility] [place] [address] * (ABNORMAL) Basic Metabolic Panel (non-fasting) (09/12/2019 12:16 PM EST) Glucose 156 65 - 199 mg/dL [facility] Comment:Diabetes: >=200 mg/d L plus symptoms Blood Urea Nitrogen 28(H) 8 - 18 mg/dL [facility] Creatinine 1.76(H) 0.70 - 1.20 mg/dL [facility] Sodium 141 135 - 145 mmol/L [facility] Potassium 4.1 3.5 - 5.0 mmol/L [facility] Comment: Please note: ??Patients with WBC >100,000 may have falsely elevated Potassium levels. ??For accurate Potassium quantification in these patients send serum separator tube (gold top) for subsequent determinations. ??Contact the Clinical Chemistry Laboratory if there are any questions. Chloride 104 98 - 107 mmol/L [facility] Carbon Dioxide 23 22 - 31 mmol/L [facility] Anion Gap 14 5 - 15 mmol/L [facility] Calcium 9.2 8.5 - 10.5 mg/dL [facility] Est Glomerular Filtration Rate 30(L) >=60 mL/min/1. 73 m?? [facility] Comment: The eGFR was calculated using the CKD-EPI equation. As with all creatinine based estimates of kidney function, eGFR values calculated with the CKD-EPI equation are not accurate in patients with acute kidney failure, extremes of body mass or the acutely ill. [email or web address] eGFR 35(L) >=60 mL/min/1. 73 m?? [facility] Comment: The eGFR was calculated using the CKD-EPI equation. As with all creatinine based estimates of kidney function, eGFR values calculated with the CKD-EPI equation are not accurate in patients with acute kidney failure, extremes of body mass or the acutely ill. [email or web address] Blood specimen (specimen) 09/12/2019 12:16 PM EST 09/12/2019 12:23 PM EST Narrative Resulting Agency Comment Spec In Lab Hai Salinas MD CHEMISTRY ORDERABLES Performing Organization Address City/State/[facility] Co de Phone Number [facility] [place] [address] documented in this encounter Visit Diagnoses Diagnosis Sarcoidosis documented in this encounter Care Teams Simplex Printer Installer Relationship Specialty Start Date End Date Sammie Cordero MD [address] [place] [address] [address] [place] [address] PCP - General Family Medicine 09/12/19 documented as of this encounter
--- OUTSIDE RECORDS SUMMARY | 2024-05-12 16:42 | XMS_ITS | Encounter Summary ---
Author Organization [facility] [place] [address] Care Team Providers Care Electronics Manufacturer Name Role Phone Naveed Mckinney MD Primary Care Provider [phone] Encounter Details Date Type Department Care Team (Late st Contact Info) Description 02/12/2019 Orders [place] [address] Hai Salinas MD [facility] [place] [address] Sarcoidosis Social History Tobacco Use Types Packs/Day [...] this encounter Visit Diagnoses Diagnosis Sarcoidosis Sarcoidosis documented in this encounter Care Teams Electronics Manufacturer Relationship Specialty Start Date End Date Naveed Mckinney MD PCP - General General Internal Medicine 12/23/18 documented as of this encounter
--- OUTSIDE RECORDS SUMMARY | 2024-05-12 16:42 | XMS_ITS | Encounter Summary ---
Author [place] [address] Care Team Providers Care Surgical Supplies Sterilizer Name Role Phone Naveed Mckinney MD Primary Care Provider [phone] Encounter Details Date Type Department Care Team (Late st Contact Info) Description 05/20/2019 [place] [phone] Oksana Dorado Social History Tobacco Use Types Packs/Day Years [...] on filedocumented in this encounter Care Teams Surgical Supplies Sterilizer Relationship Specialty Start Date End Date Naveed Mckinney MD PCP - General General Internal Medicine 12/23/18 documented as of this encounter
--- OUTSIDE RECORDS SUMMARY | 2024-05-12 16:42 | XMS_ITS | Encounter Summary ---
[place] [address] Care Team Providers Care Asphalt Engineer Name Role Phone Sammie Cordero MD Primary Care Provider [phone] Encounter Details Date Type Department Care Team (Late st Contact Info) Description 04/30/2023 Telephone Cardiology at [address] [phone] Jill Hernandez Social History Tobacco Use Types Packs/Day Years Used Date Smoking Tobacco: Never Smokeless Tobacco: Never Sex and Gender Information Value Date Recorded Sex Assigned at Female 11/05/2020 8:19 AM EST Gender Identity Not on file Sexual Orientation Straight 11/05/2020 8: 19 AM EST documented as of this encounter Miscellaneous Notes * Telephone Encounter - Jill Hernandez - 04/30/2023 1:57 PM EDT Left message after disconnected from call in regards to reschedule cardiac MRI. documented in this encounter Plan of Treatment Not on file documented as of this encounter Visit Diagnoses Not on filedocumented in this encounter Care Teams Asphalt Engineer Relationship Specialty Start Date End Date Sammie Cordero MD [facility] [address] [place] [address] PCP - General Family Medicine 09/12/19 documented as of this encounter
--- OUTSIDE RECORDS SUMMARY | 2024-05-12 16:42 | XMS_ITS | Encounter Summary ---
[place] [address] Care Team Providers Care Drawing Kiln Operator Name Role Phone Naveed Mckinney MD Primary Care Provider [phone] Encounter Details Date Type Department Care Team (Latest Contact Info) Description 05/23/2019 2:20 PM EDT Laboratory Appointment Lab [address] [place] [phone] ENA (acute kidney injury); GUZMAN (dyspnea on exertion) Social History Tobacco Use Types Packs/Day Years [...] Procedure Name Priority Date/Time Associated Diagnosis Comments HC CREATININE Routine 05/23/2019 2:46 PM EDT GUMZAN (dyspnea on exertion) HC UREA NITROGEN, SERUM Routine 05/23/2019 2:46 PM EDT GUZMNA (dyspnea on exertion) documented in this encounter Results * (ABNORMAL) BUN (05/23/2019 2:46 PM EDT) Blood Urea Nitrogen 40(H) 8 - 18 mg/dL [facility] Blood specimen (specimen) 05/23/2019 2:46 PM EDT 05/23/2019 2:49 PM EDT Narrative Resulting Agency Comment Spec In Lab Hai Salinas MD CHEMISTRY ORDERABLES Performing Organization Address [facility]/ZIP Co de Phone Number [facility] [place] [address] * (ABNORMAL) Creatinine (05/23/2019 2:46 PM EDT) Creatinine 1.70(H) 0.70 - 1.20 mg/dL [facility] Est Glomerular Filtration Rate 31(L) >=60 mL/min/1.7 3 m?? [facility] Comment: The eGFR was calculated using the CKD-EPI equation. As with all creatinine based estimates of kidney function, eGFR values calculated with the CKD-EPI equation are not accurate in patients with acute kidney failure, extremes of body mass or the acutely ill. http://[employer]/[facility]Unk[facility] eGFR 36(L) >=60 mL/min/1.7 3 m?? [facility] Comment: The eGFR was calculated using the CKD-EPI equation. As with all creatinine based estimates of kidney function, eGFR values calculated with the CKD-EPI equation are not accurate in patients with acute kidney failure, extremes of body mass or the acutely ill. [email or web address]/[facility]nk[facility] Blood specimen (specimen) 05/23/2019 2:46 PM EDT 05/23/2019 2:49 PM EDT Narrative Resulting Agency Comment Spec In Lab Hai Salinas MD CHEMISTRY ORDERABLES Performing Organization Address City/[facility]/ZIP Co de Phone Number [facility] [place] [address] documented in this encounter Visit Diagnoses Diagnosis ENA (acute kidney injury) Acute kidney failure, unspecified GUZMAN (dyspnea on exertion) Other dyspnea and respiratory abnormality documented in this encounter Care Teams Drawing Kiln Operator Relationship Specialty Start Date End Date Naveed Mckinney MD PCP - General General Internal Medicine 12/23/18 documented as of this encounter
--- OUTSIDE RECORDS SUMMARY | 2024-05-12 16:42 | XMS_ITS | Encounter Summary ---
Author Organization [facility] [place] [address] Care Team Providers Care Philosophy Faculty Name Role Phone Naveed Mckinney MD Primary Care Provider Reason for Visit * Reason Comments Follow-up Encounter Details Date Type Department Care Team (Late st Contact Info) Description 06/13/2019 3:30 PM EDT Office [place] [address] Hai Graham MD [facility] [place] [address] Sarcoidosis Social History Tobacco Use Types Packs/Day Years Used Date Smoking Tobacco: Never Smokeless Tobacco: Never Sex and Gender Information Value Date Recorded Sex Assigned at Female 11/05/2020 8:19 AM EST Gender Identity Not on file Sexual Orientation Straight 11/05/2020 8: 19 AM EST documented as of this encounter Last Filed Vital Signs Vital Sign Reading Time Taken Comments Blood Pressure 142/59 06/13/2019 3:24 PM EDT Pulse 68 06/13/2019 3:16 PM EDT Temperature - - Respiratory Rate 20 06/13/2019 3:16 PM EDT Oxygen Saturation 100% 06/13/2019 3:16 PM EDT Inhaled Oxygen Concentration - - Weight 90.7 kg (200 lb) 06/13/2019 3:16 PM EDT Height 172.7 cm (5' 8) 06/13/2019 3:16 PM EDT Body Mass Index 30.41 06/13/2019 3:16 PM EDT documented in this encounter Progress Notes * Hai Graham MD - 06/13/2019 3:30 PM EDT Images from the original note were not included. CLINIC Follow up Note Original consult: 02/18/2019 Last visit: 01/04/2019 I have personally interviewed and examined the patient, reviewed history, radiographic studies( if any) and laboratory data(if any). Pulmonary problems : -sacordosis. -SPN in lingular, suspected hamartoma. ?? Other Issues: -h/o heart failure( r/o cardiac sarcoid) -h/o ARF, due to hypercalcemia -lytic bone region ( sarcoid). - - HPI: This is a 64 y.o. female, here presents for a scheduled follow-up visit. The following is a summary from the previous visit. -63 yo woman was referred to me [...] -she is minimally symptomatic at this time. ?? Plan / recommendation. -continue 40mg predsnione daily for total of 3 weeks then we will start taper 5mg every 2 weeks to a goal of 10mg daily. -I will request [facility] to send us the available labs. I will need to make sure her sCr is acceptable for prophylactic bactrim administration. 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 -She has already been scheduled with a towel inspector for possible cardiac sarcoid. -need to monitor for sCr. If arises again, consider possibility of sarcoid interstitial nephritis and re-consult to nephrology. -also need to check LFT, if it has not been done. ( will take a look of the lab she had at [facility]). -will have her back in 3 months with PFT and another non-contrast CT ?? -Overall, I agree, the dx appears to be sarcoidosis. Her lung disease is quite mild ( by PFT and CT) and immunosuppresive therapy may need to be adjusted to/ directed by cardiac disease/ towel inspector, if she is found to have cardiac sarcoid, which is associated with high rate of adverse events and much worse prognosis than lung disease. Will await for input by towel inspector. Today's visit; -CT scan on 05/23 showed near complete resolution of fine nodular opacity and GGO. She has tapered her prednisone down to 5mg daily, which she has been taking for the last 2 weeks( we set a goal at 10mgdaily, she though she should decrease 5mg / 2weeks to OFF). No new sx. Feeling fine without cough nor dyspnea. -PFT on 05/23/2019 showed improved FEV1 and FVC. DLco is unchanged. -She has gained weight from 179 LB 9 01/2019) to 200 ( 06/13/2019) -Dr. Mckinney checked her calcium in March and it was normal. PMHx: Patient Active Problem List Diagnosis Code ??? 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 ARF (acute renal failure) N17.9 ??? Hypercalcemia E83.52 ??? Nodule of left lung R91.1 ??? Bone lesion M89.9 Social Hx: Social History Tobacco Use ??? Smoking status: Never Smoker ??? Smokeless tobacco: Never Used Substance Use Topics ??? Alcohol use: Not on file ??? Drug use: Not on file Allergy: No Known Allergies Medications: Outpatient Medications Marked as Taking for the 06/13/19 encounter (Office Visit) with Hai Graham MD Medication Sig Dispense Refill ??? furosemide (LASIX) 20 mg Tablet ??? spironolactone (ALDACTONE) 25 mg Tablet TAKE 1 TABLET BY MOUTH ONCE DAILY 2 ??? predniSONE (DELTASONE) 10 mg Tablet Take 3.5 tablets by mouth daily. 49 tablet 3 ??? ELIQUIS 2.5 mg Tablet take 1 [...] Take 100 mg by mouth once. 0 Vitals and Physical Exam: BP 142/59 Pulse 68 Resp 20 Ht 172.7 cm (5' 8) Wt 90.7 kg (200 lb) SpO2 100% BMI 30.41 kg/m?? Gen: comfortable. HEENT: No pallor, no icteric sclerae. Neck: No stridor. Chest: CTA without wheezing/rhonchi/crackles Symmetric excursion. Cor: RRR, S1S2, No MRG. Abd: ND Extrem: no C/C/E. Diagnostic studies: -CXR: -CT: 12/24/2018 Diffuse osseous lytic lesions. 1.8 cm well circumscribed a nodule in the lingular with some fat density, possible hamartoma. Bilateral apex reticulonodular densities. ? 05/23/2019 CT chest. COMPARISON: Chest CT 12/24/2018 ?? FINDINGS: Pulmonary parenchyma: The previously seen patchy [...] change. Multiple small lucencies in thoracic spine. ?? IMPRESSION Near complete clearing of previously seen groundglass and tree-in-bud opacities in upper lung zones. Stable, part fatty, lingular nodule most consistent with benign hamartoma. ?? -PFTs: date FVC FEV1 FEV/FVC VC TLC RV RV/TLC Dsb SpO2 ?? 02/18/2019 2.78 76 2.08 74 75 ? 16.07 71 ## 98 # ?05/23/2019 ??3.41 95 ??2.54 93 ??74 ?15.34 68 ? # no desaturation after 375. ## 80% when adjusted to Hb 10.2 ( 01/24/2019) ?? -ECHO: -Serology: -PET: -Biopsy: -Other: ?? Labs 01/21/2019 Bone biopsy Non-caseating granuloma. Negative special staining for pathogens. Summary: -sacordosis. ( dxed by bone biopsy. Reticulation and nodule without MLN adenopathy). On steroid since 02/06/2019 -SPN in lingular, suspected hamartoma. ?? Other Issues: -h/o heart failure( r/o cardiac sarcoid) -h/o ARF, due to hypercalcemia -lytic bone region ( non-caseating granuloma) Impression/recommendation: -64 yo woman with sarcoidosis, here for follow up. Doing well and no cough nor dyspnea at this time. Has been on prednisone since 02/06/2019, currently taking 5mg daily for the last 2 weeks. -CT and PFT showed improvement. -we will continue 5mg daily prednisone for now. RTC in 3 months for re- evaluation. I usually keep pt on low dose prednisone ( 5-10 mg daily ) for another 6 months following the initial taper ( total of 10-12 months prednisone course), as they can tolerate and attempt to d/c. mins of this 30 min visit was used in conversation with the patient (and accompanying family members, if present) regarding my impressions and recommendations and providing counseling. All the questions were answered. I have spent an additional time in reviewing charts/records/labs/tests, or discuss ion with other health care providers. This above does NOT include the time spent in ( ) Smoking cessation counseling ( ) inhaler technique demonstration and teaching. ( checked if applicable) - I personally reviewed ( ) radiographic images. ( ) pulmonary function testing DATA ( ) Laboratory DATA ( apply if checked ) documented in this encounter Miscellaneous Notes * Addendum Note - Hai Graham MD - 06/13/2019 3:30 PM EDTAddended by: HAI GRAHAM on: 06/13/2019 04:16 PM Modules accepted: Orders documented in this encounter Plan of Treatment Not on file documented as of this encounter Results * (ABNORMAL) Basic Metabolic Panel (non-fasting) (09/12/2019 12:16 PM EST) Glucose 156 65 - 199 mg/dL [facility] Comment:Diabetes: >=200 mg/d L plus symptoms Blood Urea Nitrogen 28(H) 8 - 18 mg/dL [facility] Creatinine 1.76(H) 0.70 - 1.20 mg/dL [facility] Sodium 141 135 - 145 mmol/L [facility] Potassium 4.1 3.5 - 5.0 mmol/L [facility] Comment: Please note: ??Patients with WBC >100,000 may have falsely elevated Potassium levels. ??For accurate Potassium quantification in these patients send serum separator tube (gold top) for subsequent determinations. ??Contact the Clinical Chemistry Laboratory if there are any questions. Chloride 104 98 - 107 mmol/L [facility] Carbon Dioxide 23 22 - 31 mmol/L [facility] Anion Gap 14 5 - 15 mmol/L [facility] Calcium 9.2 8.5 - 10.5 mg/dL [facility] Est Glomerular Filtration Rate 30(L) >=60 mL/min/1. 73 m?? [facility] Comment: The eGFR was calculated using the CKD-EPI equation. As with all creatinine based estimates of kidney function, eGFR values calculated with the CKD-EPI equation are not accurate in patients with acute kidney failure, extremes of body mass or the acutely ill. http://[email or web address]OREnkf eGFR 35(L) >=60 mL/min/1. 73 m?? [facility] Comment: The eGFR was calculated using the CKD-EPI equation. As with all creatinine based estimates of kidney function, eGFR values calculated with the CKD-EPI equation are not accurate in patients with acute kidney failure, extremes of body mass or the acutely ill. [email or web address]://[email or web address]/[email or web address] Blood specimen (specimen) 09/12/2019 12:16 PM EST 09/12/2019 12:23 PM EST Narrative Resulting Agency Comment Spec In Lab Hai Graham MD CHEMISTRY ORDERABLES Performing Organization Address [facility] Co de Phone Number [facility] [place] [address] * Calcium (09/12/2019 12:16 PM EST) Calcium 9.2 8.5 - 10.5 mg/dL [facility] Blood specimen (specimen) 09/12/2019 12:16 PM EST 09/12/2019 12:23 PM EST Narrative Resulting Agency Comment Spec In Lab Hai Graham MD CHEMISTRY ORDERABLES Performing Organization Address [facility] Co de Phone Number [facility] [place] [address] documented in this encounter Visit Diagnoses Diagnosis Sarcoidosis documented in this encounter Care Teams Philosophy Faculty Relationship Specialty Start Date End Date Naveed Mckinney MD PCP - General General Internal Medicine 12/23/18 documented as of this encounter
--- OUTSIDE RECORDS SUMMARY | 2024-05-12 16:42 | XMS_ITS | Encounter Summary ---
[place] [address] Care Team Providers Care Deputy Administrator Name Role Phone Sammie Cordero MD Primary Care Provider [phone] Encounter Details Date Type Department Care Team (Late st Contact Info) Description 02/28/2023 Telephone Cardiology at [address] [phone] Jill Rome Social History Tobacco Use Types Packs/Day Years [...] on filedocumented in this encounter Care Teams Deputy Administrator Relationship Specialty Start Date End Date Sammie Cordero MD [address] [place] [address] PCP - General Family Medicine 09/12/19 documented as of this encounter
--- OUTSIDE RECORDS SUMMARY | 2024-05-12 16:42 | XMS_ITS | Encounter Summary ---
Author Organization [facility] [place] [address] Care Team Providers Care Electric Motor Rebuilder Name Role Phone Sammie Cordero MD Primary Care Provider [phone] Reason for Referral * Diagnostic Test (Routine) - Closed Specialty Diagnoses / Procedures Referred By Contac t Referred To Contact Cardiology Diagnoses HFrEF (heart failure with reduced ejection fraction) Procedures Ziopatch 48 Hrs-15 Days Catherine Hamilton [place] [address] [facility] [place] [address] Referral ID Status Reason Start Date Expiration Date V isits Requested Visits Authorized [id number] Closed Specialty Service Requested 04/18/2023 04/17/2024 1 1 * Diagnostic Test (Routine) - Closed Specialty Diagnoses / Procedures Referred By Contac t Referred To Contact Radiology Diagnoses HFrEF (heart failure with reduced ejection fraction) Procedures MRI Cardiac Morphology Function wwo Contrast Catherine Hamilton MD [facility] [place] [address] [facility] [place] [address] Referral ID Status Reason Start Date Expiration Date V isits Requested Visits Authorized [id number] Closed Specialty Service Requested 04/18/2023 10/19/2024 1 1 Reason for Visit * Consultation (Routine) - Closed Specialty Diagnoses / Procedures Referred By Contac t Referred To Contact Cardiology Diagnoses Cardiomyopathy, unspecified [...] suited to CHF Clinic. Sammie Cordero MD [facility] [address] [address] Catherine Hamilton MD [place] [address] Referral ID Status Reason Start Date Expiration Date V isits Requested Visits Authorized [id number] Closed Consult, Test & Treat PCP Updated and/or Approved 02/02/2023 02/02/2024 12 12 Encounter Details Date Type Department Care Team (Late st Contact Info) Description 04/04/2023 1:40 PM EDT Office Visit Cardiology at [address] [address] Catherine Hamilton MD [place] [address] HFrEF (heart failure with reduced [...] Sign Reading Time Taken Comments Blood Pressure 108/69 04/04/2023 2:12 PM EDT Pulse 58 04/04/2023 2:12 PM EDT Temperature - - Respiratory Rate - - Oxygen Saturation 98% 04/04/2023 2:12 PM EDT Inhaled Oxygen Concentration - - Weight 95.3 kg (210 lb) 04/04/2023 2:12 PM EDT Height 172.7 cm (5' 8) 04/04/2023 2:12 PM EDT Body Mass Index 31.93 04/04/2023 2:12 PM EDT documented in this encounter Progress Notes * Catherine Hamilton MD - 04/04/2023 1:40 PM EDT Advanced Heart Failure New Patient Clinic Visit Note HPI: Jen Guevara is a 68 y.o. female with a history of atrial fibrillation, cardiomyopathy (presumed non-ischemic), HTN, pulmonary sarcoidosis, CKD presenting to establish heart failure care. She also follows with Dr. Solorzano in cardiology at [facility]. Jen is referred by her PCP and trash hauler for newly reduced ejection fraction to 30% (01/2023)from a previous LVEF of 43% (05/2020). She also has a history of pulmonary sarcoidosis, and thus there is a concern this progressive cardiomyopathy could represent cardiac sarcoid. In terms of her history of cardiomyopathy, per outside notes, she was initially found to have a cardiomyopathy in late 2018, when LVEF was down to 25-30%. This improved to 45% within a month, and was felt to be consist with a stress induced cardiomyopathy in the setting of multiple recent personal losses. TTE in 05/2020 showed stability of LVEF ~43%. Most recent TTE in 01/2023 showed a decline in LVEF to 30%. Jen tells me she thinks she had a stress test in the past and was told it was normal. She has not had [...] from 01/2019 until 05/2020, then tapered off. Pulmonary told her she did not require additional scheduled follow up, lastseen 2020. 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 0 lisinopriL (Prinivil;Zestril) 20 mg Tablet TK 1 T PO D predniSONE (Deltasone) 5 mg Tablet Take 1 tablet by mouth daily. 30 tablet 5 azithromycin (ZITHROMAX) 250 mg Tablet Take 1 tablet by mouth daily. Day1:take 2 tablets daily, Day2-5:Take one tablet daily (Patient not taking: Reported on 03/24/2020) 6 tablet 0 cyanocobalamin, vitamin B-12, 100 mcg Tablet Take 100 mcg by mouth daily. No current facility-administered medications on file prior to visit. Allergies: No Known Allergies Social history - over an hour to get down here. 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 Son is also a music video director. Never smoker, drinks no alcohol, no drug use. Family History - Mom of alzheimers (93), dad suddenly at 86. Brother and sister healthy. 1 biological son no heart problems, 2 adopted kids. Patient Vitals for the past 24 hrs: Pulse BP SpO2 04/04/23 1412 58 108/69 98 % Gen: Well appearing, no acute distress [...] cardiomyopathy (presumednon-ischemic), HTN, pulmonary sarcoidosis, CKD presenting to establish heart failure care. She alsofollows with Dr. Solorzano in cardiology at [facility]. 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 Unclear etiology at this time. She reports she previously had a stress test that was normal, though it would be reasonable to pursue repeat ischemic evaluation with coronary angiogram to evaluate further. Given history of pulmonary sarcoid, will also pursue cardiac MRI to look for infiltrative disease, and if suggestive, then follow-upwith sarcoid PET. Symptomatically, she remains active enough to continue ballroom dancing, but says she needs to stopand rest at least every five minutes, which is quite different than prior for her. NYHA II-III. When we obtain coronary angiogram with will also get a RHC to assess filling pressure and hemodynamics.She is on good GDMT started by her trash hauler, including ARNI, BB, MRA and SGLT2i. She is on diltiazem for AF rate control which we will stop in the setting of her newly reduced LVEF - will uptitrate metoprolol. - Coronary angiogram/RHC - Cardiac MRI - Sarcoid PET if cardiac MR suggests infiltrative disease - ziopatch to assess AF rate control as possible contributor to cardiomyopathy - will need to send in the mail - Continue entresto 49-51mg BID, trixie 25mg QD, dapa 10mg - increase metoprolol 100mg -> 200mg. Stop diltiazem. # Atrial fibrillation - continue apixaban - stop diltiazem, as above - increase metoprolol to 200mg qHS 3 month follow-up with me with labs, Catherine Hamilton MD Advanced Heart Failure and Cardiac Transplant documented in this encounter Plan of Treatment Not on file documented as of this encounter Results * MRI Cardiac Morphology [...] who have questions please contact the health primary health care nurse that requested your imaging first. ? Electronically signed by: Montserrat Marcos MD, [facility] ([phone]), at 05/11/2023 4:44 PM Narrative 05/11/2023 4:44 [...] patients who have questions please contactthe health primary health care nurse that requested your imaging first. Electronically signed by: Montserrat Marcos MD, [facility] ([phone]), at 05/11/2023 4:44 PM Catherine Hamilton MD IMG MRI ORDERABLE S * Ziopatch 48 Hrs-15 Days (05/04/2023 6:33 AM EDT) Anatomical Region Laterality Modality Other Narrative 06/04/2023 3:25 PM EDT Images from the original result were not included. [facility] ? 'Zio Patch' Ambulatory Cardiac Event Monitor Report Duration of recordin days, 7 hours (started on 05/11/2023) Summary Data Predominant rhythm: Sinus rhythm Maximum sinus rate: ??100 bpm Minimum sinus rate: 38 bpm Average heart rate: 62 bpm Atrial fibrillation: ? None Pauses: ?None Ectopic beats Isolated SVEs were occasional (2.0%, 33682), SVE Couplets were occasional (2.3%, 60597), and SVE Triplets were rare (<1.0%, 84). Isolated VEs were frequent (11.6%, [id number]), VE Couplets were occasional (1.9%, 9032), and [...] PDF. Catherine Hamilton MD CARDIAC SERVICES ORDERABLES * EKG 12 Lead (05/02/2023 2:49 PM EDT) Pathologist [facility] Ventricular rate 61 BPM MUSE SYSTEM Atrial Rate 61 BPM MUSE SYSTEM P-R Interval 194 ms MUSE SYSTEM QRS Duration 110 ms MUSE SYSTEM Q-T Interval 448 ms MUSE SYSTEM QTC Calculated (Bezet) 450 ms MUSE SYSTEM Calculated P [place] 30 degrees MUSE SYSTEM Calculated R [place] -31 degrees MUSE SYSTEM Calculated T [place] 58 degrees MUSE SYSTEM INTERPRETATION Sinus rhythm with frequent Premature ventricular complexes Left axis deviation Minimal voltage criteria for LVH, may be normal variant ( [place] product ) Anterior infarct , age undetermined Abnormal ECG No previous ECGs available Confirmed by MD Poli, Ryley ([id number]) on 05/02/2023 4:15:29 PM MUSE SYSTEM 05/02/2023 2:49 PM EDT 05/02/2023 4:15 PM EDT Catherine Hamilton MD ECG ORDERABLES MUSE SYSTEM * (ABNORMAL) pro-Brain Natriuretic Peptide (04/04/2023 12:34 PM EDT) NT-proBNP 1,719(H) <=124 pg/mL [facility] Blood 04/04/2023 12:3 4 PM EDT 04/04/2023 12:46 PM EDT Narrative Resulting Agency Comment Spec In Lab Catherine Hamilton MD CHEMISTRY ORDERAB LES Performing Organization Address City/State/[facility] Co de Phone Number [facility] [place] [address] * (ABNORMAL) Basic Metabolic Panel (non-fasting) (04/04/2023 12:34 PM EDT) Glucose 135 65 - 199 mg/dL [facility] Comment:Diabetes: >=200 mg/d L plus symptoms Blood Urea Nitrogen 27(H) 8 - 18 mg/dL [facility] Creatinine 1.49(H) 0.70 - 1.20 mg/dL [facility] Sodium 140 135 - 145 mmol/L [facility] Potassium 4.2 3.5 - 5.0 mmol/L [facility] Comment: Please note: ??Patients with WBC >100,000 may have falsely elevated Potassium levels. ??For accurate Potassium quantification in these patients send serum separator tube (gold top) for subsequent determinations. ??Contact the Clinical Chemistry Laboratory if there are any questions. Chloride 106 98 - 107 mmol/L [facility] Carbon Dioxide 22 22 - 31 mmol/L [facility] Anion Gap 12 5 - 15 mmol/L [facility] Calcium 9.2 8.5 - 10.5 mg/dL [facility] Est Glomerular Filtration Rate 38(L) >=60 mL/min/1. 73 m?? [facility] Comment: This patient's estimated GFR was [...] MD CHEMISTRY ORDERAB LES Performing Organization Address City/State/[facility] Co de Phone Number [facility] [place] [address] documented in this encounter Visit Diagnoses Diagnosis HFrEF (heart failure with reduced ejection fraction) HFrEF (heart failure with reduced ejection fraction) HFrEF (heart failure with reduced ejection fraction) documented in this encounter Care Teams Electric Motor Rebuilder Relationship Specialty Start Date End Date Sammie Cordero MD [facility] [address] [place] [address] PCP - General Family Medicine 09/12/19 documented as of this encounter
--- OUTSIDE RECORDS SUMMARY | 2024-05-12 16:42 | XMS_ITS | Encounter Summary ---
Author [place] [address] Care Team Providers Care Process Engineer Name Role Phone Sammie Cordero MD Primary Care Provider [phone] Reason for Referral * Diagnostic Test (Routine) - Closed Specialty Diagnoses / Procedures Referred By Annie torres Referred To Contact Radiology Diagnoses Cardiomyopathy, unspecified type Sarcoid myocarditis Procedures MRI Cardiac Morph Func Naveed Faulkner MD [address] [place] [address] [place] [address] [place] [address] Referral ID Status Reason Start Date Expiration Date V isits Requested Visits Authorized [id number] Closed Specialty Service Requested 09/01/2019 10/30/2019 1 1 Reason for Visit * Diagnostic Test (Routine) - Closed Specialty Diagnoses / Procedures Referred By Annie torres Referred To Contact Radiology Diagnoses Cardiomyopathy, unspecified type Sarcoid myocarditis Procedures MRI Cardiac Morph Func Naveed Faulkner MD [address] [place] [address] [place] [address] [place] [address] Referral ID Status Reason Start Date Expiration Date V isits Requested Visits Authorized [id number] Closed Specialty Service Requested 09/01/2019 10/30/2019 1 1 Encounter Details Date Type Department Care Team (Latest Contact Info) Description 09/24/2019 9:08 AM EST - 09/24/2019 11:59 PM EST Hospital Encounter MRI at [facility] [place] [address] Naveed Tyler MD [address] [place] [address] [place] [address] Cardiomyopathy, unspecified type; Sarcoid myocarditis Discharge Disposition: Home Social History Tobacco Use [...] 100 mg by mouth daily. predniSONE (DELTASONE) 5 mg Tablet Take 1 tablet by mouth daily. 30 tablet 5 09/12/2019 03/10/2020 azithromycin (ZITHROMAX) 250 mg Tablet Take 1 [...] MRI CARDIAC MORPHOLOGY FUNCTION WWO CONTRAST Routine 09/24/2019 11:15 AM EST Cardiomyopathy, unspecified type Sarcoid myocarditis documented in this encounter Results * MRI Cardiac Morph Func wwo Contrast (09/24/2019 11:15 AM EST) Anatomical Region Laterality Modality Magnetic Resonan ce Impressions 09/26/2019 1:08 PM EST Mild to moderate dilatation of the left ventricle. Global left ventricular hypokinesis and decreased left ventricular ejection fraction of 41%. Mild to moderate mitral valve regurgitation is suspected. The left atrium is at least moderately enlarged. Delayed enhancement at the anterior and posterior ventricular hinge points. This is a finding that has been associated with hypertrophic cardiomyopathy as well as right ventricular pressure overload. ??The overall left ventricular myocardial mass is at the upper limit of normal. No focal abnormal myocardial thickening. The main pulmonary artery is mildly increased in caliber, which can be an indirect sign of pulmonary arterial hypertension. The size of the right ventricle is still within normal limits (normal end-diastolic volume index after correction for the patient's body surface area). Normal right ventricular function. I have personally reviewed the image(s) and the resident's interpretation and agree with the findings, Montserrat Marcos at 09/26/2019 1:08 PM Thank you for letting us participate in the care of this patient. For questions regarding this report, please contact the number below. ? Narrative 09/26/2019 1:08 PM EST EXAMINATION: MRI CARDIAC MORPH FUNC WWO CONTRAST CLINICAL HISTORY: CARDIOMYOPATHY, SARCOID CARDIOMYOPATHY COMPARISON: Chest CT with contrast dated 05/23/2019. TECHNIQUE: Axial HASTE without contrast. Short and long axis cine steady-state free precession without contrast. ?? Short and long axis rest perfusion and delayed enhancement after intravenous administration of 36 cc of Dotarem Post-processing performed on an independent computer workstation. Patient's calculated body surface area: 2.09 m^2 FINDINGS: Chambers Left ventricle: The left ventricle is dilated. Other chambers: At least moderate enlargement of the left atrium. Size of the right atrium is within normal limits. Normal size of the right ventricle (based on end-diastolic volume index after correction for the patient's body surface area). Myocardium Non-contrast series: No abnormal myocardial signal on non-contrast imaging. Post-contrast series: Normal left ventricular myocardial enhancement during rest perfusion. Normal myocardial signal nulling on the postcontrast inversion recovery images. Delayed enhancement is noted at the right and left ventricular hinge points. Wall motion abnormalities: Global left ventricular hypokinesis. Valves: No aortic valvulopathy identified. Mild to moderate imaging evidence of mitral regurgitation. Pericardium: No pericardial thickening or effusion. Aorta: Normal contour and caliber. Other thoracic great vessels: Normal contour and caliber. Non-cardiovascular structures: Stable pulmonary nodule in the lingula as also seen on CT 05/23/2019 and previously characterized as a benign hamartoma. QUANTITATIVE DATA: LEFT VENTRICLE: LV Mass: 134 g LV End-Diastolic Volume: 318 mL LV End-Systolic Volume: 188 mL Stroke Volume: 130 mL LV Ejection Fraction: 41% Cardiac Output: 6.9 L/min Anteroseptal Wall Thickness: 10 mm Posterolateral Wall Thickness: 7 mm End-Diastolic Dimension: 6.8 cm End-Systolic Dimension: 6.4 cm RIGHT VENTRICLE: RV End-Diastolic Volume: 198 mL RV End-Systolic Volume: 87 mL RV Stroke Volume: 111 mL RV Ejection Fraction: 56% Procedure Note Montserrat Mark MD - 09/26/2019 EXAMINATION: MRI CARDIAC MORPH FUNC WWO CONTRAST CLINICAL HISTORY: CARDIOMYOPATHY, SARCOID CARDIOMYOPATHY COMPARISON: Chest CT with contrast dated 05/23/2019. TECHNIQUE: Axial HASTE without contrast. Short and long axis cine steady-state free precession without contrast. Short and long axis rest perfusion and delayed enhancement afterintravenous administration of 36 cc of Dotarem Post-processing performed on an independent computer workstation. Patient's calculated body surface area: 2.09 m^2 FINDINGS: Chambers Left ventricle: The left ventricle is dilated. Other chambers: At least moderate enlargement of the left atrium. Size of the right atrium is within normal limits. Normal size of the right ventricle (based on end-diastolic volume indexafter correction for the patient's body surface area). Myocardium Non-contrast series: No abnormal myocardial signal on non-contrastimaging. Post-contrast series: Normal left ventricular myocardial enhancementduring rest perfusion. Normal myocardial signal nulling on the postcontrastinversion recovery images. Delayed enhancement is noted at the right and leftventricular hinge points. Wall motion abnormalities: Global left ventricular hypokinesis. Valves: No aortic valvulopathy identified. Mild to moderate imaging evidence of mitral regurgitation. Pericardium: No pericardial thickening or effusion. Aorta: Normal contour and caliber. Other thoracic great vessels: Normal contour and caliber. Non-cardiovascular structures: Stable pulmonary nodule in the lingula asalso seen on CT 05/23/2019 and previously characterized as a benign hamartoma. QUANTITATIVE DATA: LEFT VENTRICLE: LV Mass: 134 g LV End-Diastolic Volume: 318 mL LV End-Systolic Volume: 188 mL Stroke Volume: 130 mL LV Ejection Fraction: 41% Cardiac Output: 6.9 L/min Anteroseptal Wall Thickness: 10 mm Posterolateral Wall Thickness: 7 mm End-Diastolic Dimension: 6.8 cm End-Systolic Dimension: 6.4 cm RIGHT VENTRICLE: RV End-Diastolic Volume: 198 mL RV End-Systolic Volume: 87 mL RV Stroke Volume: 111 mL RV Ejection Fraction: 56% IMPRESSION Mild to moderate dilatation of the left ventricle. Global leftventricular hypokinesis and decreased left ventricular ejection fraction of 41%. Mild to moderate mitral valve regurgitation is suspected. The left atriumis at least moderately enlarged. Delayed enhancement at the anterior and posterior ventricular hingepoints. This is a finding that has been associated with hypertrophic cardiomyopathy aswell as right ventricular pressure overload. The overall left ventricularmyocardial mass is at the upper limit of normal. No focal abnormal myocardialthickening. The main pulmonary artery is mildly increased in caliber, which can ziegler indirect sign of pulmonary arterial hypertension. The size of the right ventricle is still within normal limits (normal end-diastolic volume index after correction for the patient's bodysurface area). Normal right ventricular function. I have personally reviewed the image(s) and the resident's interpretationand agree with the findings, Montserrat Marcos at 09/26/2019 1:08 PM Thank you for letting us participate in the care of this patient. Forquestions regarding this report, please contact the number below. Naveed Tyler MD IMG MRI ORDERABLES documented in this encounter Visit Diagnoses Diagnosis Cardiomyopathy, unspecified type Sarcoid myocarditis Sarcoidosis documented in this encounter Administered Medications Inactive Administered Medications - up to 3 most recent administrations Medication Order MAR Action Action Date Dose Rate Site gadoterate meglumine (DOTAREM) 0.5 mmol/mL (376.9 mg/mL) injection 0.2 mL/kg/dose 0.2 mL/kg/dose, Intravenous, ONCE PRN, 1 dose, Starting on Sun09/24/19 at 0946, Until Sun09/24/19 at 1115, Per Protocol, Radiology Contrast, Routine Given 09/24/2019 11:15 AM EST 36 mLs documented in this encounter Care Teams Process Engineer Relationship Specialty Start Date End Date Sammie Cordero MD [address] [place] [address] PCP - General Family Medicine 09/12/19 documented as of this encounter
--- OUTSIDE RECORDS SUMMARY | 2024-05-12 16:42 | XMS_ITS | Encounter Summary ---
Author Organization [facility] Address [facility] [place] [address] Care Team Providers Care Electric Cutter Operator Name Role Phone Sammie Cordero MD Primary Care Provider [phone] Encounter Details Date Type Department Care Team (Late st Contact Info) Description 02/03/2020 Orders Only [place] [address] Guido Diamond Jr., MD [facility] [place] [address] Nodule of left lung (Primary Dx) Social History Tobacco Use Types [...] encounter Visit Diagnoses Diagnosis Nodule of left lung- Primary Solitary pulmonary nodule Nodule of left lung Solitary pulmonary nodule documented in this encounter Care Teams Electric Cutter Operator Relationship Specialty Start Date End Date Sammie Cordero MD [facility] [address] [facility] [address] [place] [address] PCP - General Family Medicine 09/12/19 documented as of this encounter
--- OUTSIDE RECORDS SUMMARY | 2024-05-12 16:42 | XMS_ITS | Encounter Summary ---
Author Organization [facility] [place] [address] Care Team Providers Care Casey Saw Operator Name Role Phone Naveed Mckinney MD Primary Care Provider [phone] Encounter Details Date Type Department Care Team (Late st Contact Info) Description 05/23/2019 Orders [place] [address] Hai Salinas MD [facility] [address] GUZMAN (dyspnea on exertion) Social History Tobacco [...] as of this encounter Results * (ABNORMAL) Creatinine (05/23/2019 2:46 PM EDT) Creatinine 1.70(H) 0.70 - 1.20 mg/dL [facility] Est Glomerular Filtration Rate 31(L) >=60 mL/min/1.7 3 m?? [facility] Comment: The eGFR was calculated using the CKD-EPI equation. As with all creatinine based estimates of kidney function, eGFR values calculated with the CKD-EPI equation are not accurate in patients with acute kidney failure, extremes of body mass or the acutely ill. http://[employer]/[facility] [place] [facility] [place] eGFR 36(L) >=60 mL/min/1.7 3 m?? [facility] Comment: The eGFR was calculated using the CKD-EPI equation. As with all creatinine based estimates of kidney function, eGFR values calculated with the CKD-EPI equation are not accurate in patients with acute kidney failure, extremes of body mass or the acutely ill. http://[employer]/[facility] [place] [facility] [place] Blood specimen (specimen) 05/23/2019 2:46 PM EDT 05/23/2019 2:49 PM EDT Narrative Resulting Agency Comment Spec In Lab Hai Salinas MD CHEMISTRY ORDERABLES Performing Organization Address City/[facility]/ZIP Co de Phone Number [facility] [place] [address] * (ABNORMAL) BUN (05/23/2019 2:46 PM EDT) Blood Urea Nitrogen 40(H) 8 - 18 mg/dL [facility] Blood specimen (specimen) 05/23/2019 2:46 PM EDT 05/23/2019 2:49 PM EDT Narrative Resulting Agency Comment Spec In Lab Hai Salinas MD CHEMISTRY ORDERABLES Performing Organization Address City/[facility]/ZIP Co de Phone Number [facility] [place] [address] documented in this encounter Visit Diagnoses Diagnosis GUZMAN (dyspnea on exertion) Other dyspnea and respiratory abnormality documented in this encounter Care Teams Casey Saw Operator Relationship Specialty Start Date End Date Naveed Mckinney MD PCP - General General Internal Medicine 12/23/18 documented as of this encounter
--- OUTSIDE RECORDS SUMMARY | 2024-05-12 16:42 | XMS_ITS | Encounter Summary ---
Author [place] [address] Care Team Providers Care Veteran Appeals Reviewer Name Role Phone Naveed Mckinney MD Primary Care Provider [phone] Encounter Details Date Type Department Care Team (Late st Contact Info) Description 02/06/2019 [place] [address] Bella Acosta MD [address] [address] Social History Tobacco Use Types Packs/Day Years Used Date Smoking Tobacco: Never Smokeless Tobacco: Never Sex and Gender Information Value Date Recorded Sex Assigned at Female 11/05/2020 8:19 AM EST Gender Identity Not on file Sexual Orientation Straight 11/05/2020 8: 19 AM EST documented as of this encounter Miscellaneous Notes * Telephone Encounter - Bella Acosta - 02/07/2019 12:00 AM EDT Telephone Triage Note Initial Contact Date: 02/07/19 Initial contact time: 12:05AM Referring Provider: TOYIN Hernandes Patient Location: [facility] Presenting Symptoms per OSH: 63 y.o. female with no known CAD history presents with new onset atrial fibrillation for the past 3days. Patient felt a rapid heart rate 3 days ago with no associated chest pain or SOB and was seen at her PCP where she was noted to be in atrial fibrillation. HR ranging 110-140s with activity. She has a history of apparent sarcoidosis and non-ischemic CM (newly diagnosed) and was put on prednisone 1 week prior. Her last TTE 09/03 at [facility] reportedly has an EF of 40- 45% with normal RV and valvular function. Given 25 mg IV dilt and dilt gtt at 7.5/hr with rates in the 110s at rest and 120 with movement. She notably has a recent history of acute renal failure in the setting of sarcoid. Past Medical History: - sarcoidosis - CKD Pertinent Diagnostic Findings: Vitals: afebrile 129/94 HR 115-->140s in afib Asymptomatic in afib EKG: afib at 97 bpm, 1-[address] depressions in V4-V6 Troponin: not obtained BMP notable for BUN/sCr 59/2.82 OSH Interventions: - dilt IV + gtt - metoprolol succinate 50 mg x 1 Assessment: 63 y.o. female with no known CAD history presents with new onset atrial fibrillation for the past 3days. Provider has tried IV diltiazem without significant effect though some reduction in HR. Givenpatient's reduced EF, I recommended increasing the beta moe dosage and trying IV metoprolol forRVR. Given duration of afib > 48 hours, avoid amiodarone and cardioversion if possible. Avoid digoxin given renal insufficiency. I recommended a rate control strategy with PO metoprolol (increasing home dose of 100 mg XL into split short- acting doses) for now, starting her on anticoagulation if [id number] elevated (likely warfarin given CKD), and having her follow-up with her [employer], Dr. Lopez. Could consider cardioversion after 4 weeks of anticoagulation. Given limited bed situation, would not favor transfer for management of asymptomatic afib. OSH provider to call back for deterioration in clinical status, elevation in cardiac biomarkers, or ECG changes. Above recommendations were based on my discussion with OSH provider; I have not personally interviewed or examined this patient; I have personally reviewed EKGs. Bella Acosta MD Cardiovascular Disease Fellow, PGY-4 [facility] # [phone] documented in this encounter Plan of Treatment Not on file documented as of this encounter Visit Diagnoses Not on filedocumented in this encounter Care Teams Veteran Appeals Reviewer Relationship Specialty Start Date End Date Naveed Mckinney MD PCP - General General Internal Medicine 12/23/18 documented as of this encounter
--- OUTSIDE RECORDS SUMMARY | 2024-05-12 16:42 | XMS_ITS | Encounter Summary ---
[place] [address] Care Team Providers Care Collision Technician Name Role Phone Sammie Cordero MD Primary Care Provider [phone] Encounter Details Date Type Department Care Team (Late st Contact Info) Description 09/07/2020 Telephone [place] [phone] Cecelia Garcia Social History Tobacco Use Types [...] on filedocumented in this encounter Care Teams Collision Technician Relationship Specialty Start Date End Date Sammei Cordero MD [address] [place] [address] PCP - General Family Medicine 09/12/19 documented as of this encounter
--- OUTSIDE RECORDS SUMMARY | 2024-05-12 16:42 | XMS_ITS | Encounter Summary ---
Author Organization [facility] [place] [address] Care Team Providers Care Field Artillery Crewmember Name Role Phone Sammie Cordero MD Primary Care Provider [phone] Encounter Details Date Type Department Care Team (Late st Contact Info) Description 11/05/2020 9:00 AM EST TH Visit (TeleHealth) [place] [address] Guido Diamond Jr., MD [facility] [place] [address] Sarcoidosis Social History Tobacco Use Types Packs/Day Years Used Date Smoking Tobacco: Never Smokeless Tobacco: Never Sex and Gender Information Value Date Recorded Sex Assigned at Female 11/05/2020 8:19 AM EST Gender Identity Not on file Sexual Orientation Straight 11/05/2020 8: 19 AM EST documented as of this encounter Progress Notes * Guido Diamond Jr., MD - 11/05/2020 9:00 AM EST Pulmonary Return (Telephone/Telehealth) HPI: Ms. Guevara is a 65 y.o. female previously followed by Dr. Salinas. This is a scheduled follow-up for management of sarcoidosis. Due to the COVID-19 pandemic, the clinic visit is conducted as a telehealth visit. I last met with her on 03/25/2020. She continues to do well. She has tapered off of prednisone without incident. No cough, wheeze, or dyspnea. Prior PFTs were essentially normal. Shecontinues to follow COVID-19 pandemic precautions, and is patiently waiting to sign up for the COVID-19 vaccine. Patient Active Problem List Diagnosis Code ??? [...] facility-administered medications on file prior to visit. Physical Exam - due to COVID-19 pandemic, clinic visit is performed as a video call. No formal physical examination is possible. During the conversation, Ms. Guevara is pleasant and verbally interactive. No cough, wheeze, or hoarseness. Strength of voice is normal. She is alert and well groomed. Objective Data Laboratory 09/12/2019 NA 141, K [...] 2.78L (76%), FEV1/FVC 0.75; DLCO 71% Assessment / Plan Sarcoidosis based upon bone biopsy. She has been on prednisone since 02/06/2019, and tapered off following the 03/2020 clinic visit. She continues to do well off of prednisone. At this time I would like her to remain off of prednisone. I do not think further planned pulmonary follow-up is necessary, but would be delighted to meet with Ms. Guevara again in the future should the need arise. Symptoms of pulmonary sarcoid can be varied, but could include increased cough (particularly dry), exam findings of wheeze or crackles, potentially progressive shortness of breath (although this can be an extremely non-specific finding.) Increase activity as tolerated. Obtain COVID-19 vaccine when available. Video: 5 minutes. Chart review and documentation: 10 minutes. --Fidelina Diamond MD documented in this encounter Plan of Treatment Not on file documented as of this encounter Visit Diagnoses Diagnosis Sarcoidosis documented in this encounter Care Teams Field Artillery Crewmember Relationship Specialty Start Date End Date Sammie Cordero MD [facility] [address] [place] [facility] [address] [place] [address] PCP - General Family Medicine 09/12/19 documented as of this encounter
--- OUTSIDE RECORDS SUMMARY | 2024-05-12 16:42 | XMS_ITS | Encounter Summary ---
Author Organization [facility] [place] [address] Care Team Providers Care Sander Wooden Pencils Name Role Phone Sammie Cordero MD Primary Care Provider [phone] Reason for Visit * Reason Comments Follow-up Encounter Details Date Type Department Care Team (Late st Contact Info) Description 09/12/2019 1:30 PM EST Office [place] [address] Hai Salinas MD [facility] [place] [address] Sarcoidosis Social History Tobacco Use Types Packs/Day Years Used Date Smoking Tobacco: Never Smokeless Tobacco: Never Sex and Gender Information Value Date Recorded Sex Assigned at Female 11/05/2020 8:19 AM EST Gender Identity Not on file Sexual Orientation Straight 11/05/2020 8: 19 AM EST documented as of this encounter Last Filed Vital Signs Vital Sign Reading Time Taken Comments Blood Pressure 125/45 09/12/2019 1:40 PM EST Pulse 63 09/12/2019 1:40 PM EST Temperature - - Respiratory Rate 20 09/12/2019 1:40 PM EST Oxygen Saturation 98% 09/12/2019 1:40 PM EST Inhaled Oxygen Concentration - - Weight 90.7 kg (200 lb) 09/12/2019 1:40 PM EST Height 172.7 cm (5' 8) 09/12/2019 1:40 PM EST Body Mass Index 30.41 09/12/2019 1:40 PM EST documented in this encounter Progress Notes * Hai Salinas MD - 09/12/2019 1:30 PM EST Images from the original note were not included. CLINIC Follow up Note Original consult: Last visit: 06/13/2019 I have personally interviewed and examined the patient, reviewed history, radiographic studies( if any) and laboratory data(if any). Pulmonary problems : -sacordosis.?( dxed by bone biopsy. Reticulation and nodule without MLN adenopathy). On steroid since 02/06/2019 -SPN in lingular, suspected hamartoma.? Other ??Issues: -h/o heart failure( r/o cardiac sarcoid) -h/o ARF, due to hypercalcemia?? -lytic bone region ( non-caseating granuloma) - HPI: This is a 64 y.o. female, here presents for a scheduled follow-up visit. The following is a summary from the previous visit. -64 yo woman with sarcoidosis, here for follow up. Doing well and no cough nor dyspnea at this time. Has been on prednisone since 02/06/2019, currently taking 5mg daily for the last 2 weeks. -CT and PFT showed improvement. -we will continue 5mg daily prednisone for now. RTC in 3 months for re- evaluation. I prefer to keeppt on low dose prednisone ( 5-10 mg daily ) for another 6 months following the initial taper ( total of 10-12 months prednisone course), as they can tolerate and attempt to d/c. Today's visit; -She had been doing well till 2-3 days ago, when she caught a cold. 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 -Right now, having cough, sinus and drips. No fever however. Fatigued. -on 5 mg daily prednisone. -She had blood draw and showed stable sCr around 1.7 and normal serum calcium. -no PFT today. PMHx: Patient Active Problem List Diagnosis Code [...] Outpatient Medications Marked as Taking for the 09/12/19 encounter (Office Visit) with Hai Salinas MD Medication Sig Dispense Refill ??? furosemide (LASIX) 20 mg Tablet ??? spironolactone (ALDACTONE) 25 mg Tablet TAKE 1 TABLET BY MOUTH ONCE DAILY 2 ??? predniSONE (DELTASONE) 5 mg Tablet Take 1 tablet by mouth daily. 30 tablet 5 ??? ELIQUIS 2.5 mg Tablet take 1 [...] once. 0 Vitals and Physical Exam: BP 125/45 Pulse 63 Resp 20 Ht 172.7 cm (5' 8) Wt 90.7 kg (200 lb) SpO2 98% BMI 30.41 kg/m?? Gen: no distress. HEENT: No pallor, no icteric sclerae. No thrush Neck: No stridor. Chest: rhonchi. Symmetric excursion. Cor: RRR, S1S2, No MRG. Abd: ND Extrem: no C/C/E. Diagnostic studies: -CXR: -CT: 12/24/2018 Diffuse osseous lytic lesions. ??1.8 cm well circumscribed a nodule in the lingular with some fat density, possible hamartoma. ??Bilateral apex reticulonodular densities.? 05/23/2019 CT chest. COMPARISON: Chest CT 12/24/2018 [...] lingular nodule most consistent with benign hamartoma. ? -PFTs: date FVC FEV1 FEV/FVC VC TLC RV RV/TLC Dsb SpO2 ?? 02/18/2019 2.78 76 2.08 74 75 ? 16.07 71 ## 98 # ?05/23/2019 ??3.41 95 ??2.54 93 ??74 ?15.34 68 ? # no desaturation after 375. ## 80% when adjusted to Hb 10.2 ( 01/24/2019)? -ECHO: -Serology: -PET: -Biopsy: -Other:? Labs 01/21/2019 Bone biopsy Non-caseating granuloma. ??Negative special staining for pathogens. Results for JEN GUEVARA ( ) as of 09/12/2019 13:58 Ref. Range 09/12/2019 12:16 BUN Latest Ref Range: 8 - 18 mg/dL 28 (H) Creatinine Latest Ref Range: 0.70 - 1.20 mg/dL 1.76 (H) eGFR Latest Ref Range: >=60 mL/min/1.73 m?? 30 (L) eGFR Latest Ref Range: >=60 mL/min/1.73 m?? 35 (L) Glucose Lvl Latest Ref Range: 65 - 199 mg/dL 156 Calcium Latest Ref Range: 8.5 - 10.5 mg/dL 9.2 Summary: -sacordosis.?( dxed by bone biopsy. Reticulation and nodule without MLN adenopathy). On steroid since 02/06/2019 -SPN in lingular, suspected hamartoma.? Other ??Issues: -h/o heart failure. Followed by gold beater in [facility]. -seen by an ophthalmolgist locally. No uveitis. -h/o ARF, due to hypercalcemia, currently not followed by radiology receptionist. -lytic bone region ( non-caseating granuloma) Impression/recommendation: -64 yo woman with sarcoidosis, here for follow up. Original manifestation included dry cough, hypercalcemia( resulted in ENA). Dx was made by a lytic bone lesion. She has been taking 5mg daily prednisone for the last 3 month without recurrence of sx. Doing well ( except for cold, she caught 2-3 days ago). -continue prednisone 5mg daily and f/u in 3 months with PFT. Our original plan is to continue the dose till 01/2019 to complete one year treatment and discontinue. She is well tolerating 5mg daily prednisone currently. She has been seen by both tour leader and gold beater. -I am giving her a course of z-calvin, in light of ongoing prednisone therapy and chest cold. 22 mins of this 30 min visit was used in conversation with the patient (and accompanying family members, if present) regarding my impressions and recommendations and providing counseling. All the questions were answered. I have spent an additional time in reviewing charts/records/labs/tests, or disc ussion with other health care providers. This above does NOT include the time spent in ( ) Smoking cessation counseling ( ) inhaler technique demonstration and teaching. ( checked if applicable) - I personally reviewed ( ) radiographic images. ( ) pulmonary function testing DATA ( ) Laboratory DATA ( apply if checked ) documented in this encounter Plan of Treatment Not on file documented as of this encounter Visit Diagnoses Diagnosis Sarcoidosis documented in this encounter Care Teams Sander Wooden Pencils Relationship Specialty Start Date End Date Sammie Cordero MD [address] [place] [address] PCP - General Family Medicine 09/12/19 documented as of this encounter
--- OUTSIDE RECORDS SUMMARY | 2024-05-12 16:43 | XMS_ITS | Encounter Summary ---
Author Organization [facility] Address [address] [place] [address] Care Team Providers Care Software Publisher Name Role Phone Unavailable Primary Care Provider Unavailabl e Encounter Details Date Type Department Care Team (Late st Contact Info) Description 05/11/[address] [facility] [address] [place] [address] Trey Jacobo MD [address] [address] Social History Tobacco Use Types Packs/Day Years Used Date Smoking Tobacco: Never Assessed Sex and Gender Information Value Date Recorded Sex Assigned at Not on file Gender Identity Not on file Sexual Orientation Not on file documented as of this encounter Plan of Treatment Not on file documented as of this encounter Procedures Procedure Name Priority Date/Time Associated Diagnosis Comments CYTOPATHOLOGY Routine 05/11/2006 0:00 EDT documented in this encounter Results * CYTOPATHOLOGY (05/11/2006 0:00 EDT) Pathology Report: CYTOPATHOLOGY REPORT Reports generated via electronic interface contain original data; however they are lacking the format of the original report. Caution should be taken when reading/interpreti ng unformatted reports. Name: ? JEN GUEVARA ? Accession #: ? [id number] : ? 1955 (Age: 51) ??F ?Collect Date: ? 05/11/2006 Location: ? [facility] ? Receive Date: ? 05/14/2006 Provider: ?TREY JACOBO MD Copy to: ? Specimen/Source: ?ThinPrep Pap Test, Cervix/Endocervix, processed on Care ThreadPrep Imaging System, with manual evaluation Last Menstrual Period: ? 04/12/06 Other: ? Additional clinical information: Nl exam ? SPECIMEN ADEQUACY ? Satisfactory for Evaluation - transformation zone component present GENERAL CATEGORIZATION ? Negative for Intraepithelial Lesion or Malignancy ? Document reviewed and electronically signed by: ? Korina Hinds, KRISTINA(ASCP)(IAC) ? Report Date: ??05/16/2006 09:58 End of Report [facility] 05/11/2006 05/14/2006 Trey Jaocbo MD PATHOLOGY ORDERABLES Performing Organization Address City/State/[facility] Co de Phone Number [facility] [address] [place] [address] documented in this encounter Visit Diagnoses Not on filedocumented in this encounter
--- OUTSIDE RECORDS SUMMARY | 2024-05-12 16:43 | XMS_ITS | Encounter Summary ---
Author Organization [facility] Address [address] [place] [address] Care Team Providers Care Motorcycle Repair Shop Supervisor Name Role Phone Unavailable Primary Care Provider Unavailabl e Encounter Details Date Type Department Care Team (Late st Contact Info) Description 01/07/2009 Orders Only [facility] Laboratory Services - [facility] ([facility] [address], [place] [id number] Gege Garcia, [facility] [address] [place] [address] [place] [id number] Social History Tobacco Use Types Packs/Day Years Used Date Smoking Tobacco: Never Assessed Sex and Gender Information Value Date Recorded Sex Assigned at Not on file Gender Identity Not on file Sexual Orientation Not on file documented as of this encounter Plan of Treatment Not on file documented as of this encounter Procedures Procedure Name Priority Date/Time Associated Diagnosis Comments CYTOPATHOLOGY Routine 01/07/2009 0:00 EDT documented in this encounter Results * CYTOPATHOLOGY (01/07/2009 0:00 EDT) Pathology Report: CYTOPATHOLOGY REPORT ? Reports generated via electronic interface contain original data; ? however they are lacking the format of the original report. ? Caution should be taken when reading/interpreti ng unformatted reports. ? Name: ? JEN GUEVARA ? Accession #: ? [id number] ? : ? 1955 (Age: 53) ??F ?Collect Date: ? 01/07/2009 ? Location: ? [facility] ? Receive Date: ? 01/08/2009 ? Provider: ?GEGE WIL BOILER SHOP MECHANIC ? Copy to: ? Specimen/Source: ?Pap Test, Cervix/Endocervix, ThinPrep Imaging System ? with manual evaluation ? Last Menstrual Period: ? 5 1/2 yrs ago ? Other: ? HPVA - HPV testing requested if ASC-US on the current ThinPrep Pap test. ? SPECIMEN ADEQUACY ? Satisfactory for Evaluation ? - transformation zone component present ? GENERAL CATEGORIZATION ? Negative for Intraepithelial Lesion or Malignancy ? Document reviewed and electronically signed by: ? Lynan Michele, CT(ASCP) ? Report Date: ??01/12/2009 13:27 ? End of Report ? [facility] 01/07/2009 01/08/2009 Gege Garcia BOILER SHOP MECHANIC PATHOLOGY ORDERABLES [facility] [address] [place] [address] documented in this encounter Visit Diagnoses Not on filedocumented in this encounter
--- OUTSIDE RECORDS SUMMARY | 2024-05-12 16:43 | XMS_ITS | Encounter Summary ---
Author Organization [facility] Address [address] [place] [address] Care Team Providers Care Special Class Welder Name Role Phone Unavailable Primary Care Provider Unavailabl e Encounter Details Date Type Department Care Team (Late st Contact Info) Description 06/24/2004 Results Only [facility] [address] [place] [address] Trye Jacobo MD [address] [place] [address] Social History Tobacco Use Types Packs/Day Years Used Date Smoking Tobacco: Never Assessed Sex and Gender Information Value Date Recorded Sex Assigned at Not on file Gender Identity Not on file Sexual Orientation Not on file documented as of this encounter Plan of Treatment Not on file documented as of this encounter Procedures Procedure Name Priority Date/Time Associated Diagnosis Comments CYTOPATHOLOGY Routine 06/24/2004 0:00 EDT documented in this encounter Results * CYTOPATHOLOGY (06/24/2004 0:00 EDT) Pathology Report: CYTOPATHOLOGY REPORT Reports generated via electronic interface contain original data; however they are lacking the format of the original report. Caution should be taken when reading/interpreti ng unformatted reports. Name: ? JEN GUEVARA ? Accession #: ? [id number] : ? 1955 (Age: 49) ??F ?Collect Date: ? 06/24/2004 Location: ? [facility] ? Receive Date: ? 06/27/2004 Provider: ?TREY JACOBO MD Copy to: ? Specimen/Source: ?ThinPrep Pap Test, Cervix/Endocervix Last Menstrual Period: ? 06/07/04 ? SPECIMEN ADEQUACY ? Satisfactory for Evaluation - transformation zone component present GENERAL CATEGORIZATION ? Negative for Intraepithelial Lesion or Malignancy ? Document reviewed and electronically signed by: ? Pita Brown, SCT(ASCP) ? Report Date: ??06/29/2004 13:18 End of Report [facility] 06/24/2004 06/27/2004 Trey Jacobo MD PATHOLOGY ORDERABLES [facility] [address] [place] [address] documented in this encounter Visit Diagnoses Not on filedocumented in this encounter
--- OUTSIDE RECORDS SUMMARY | 2024-05-12 16:43 | XMS_ITS | Encounter Summary ---
Author Organization [facility] Address [address] [place] [address] Care Team Providers Care Yardage Tufting Machine Operator Name Role Phone Unavailable Primary Care Provider Unavailabl e Encounter Details Date Type Department Care Team (Late st Contact Info) Description 05/15/2013 Results Only [facility] Laboratory Services - [facility] ([facility] [place] [address] [place], [place] [id number] Gege Garcia, [facility] [address] [place] [address] [place] [phone] Social History Tobacco Use Types Packs/Day Years Used Date Smoking Tobacco: Never Assessed Sex and Gender Information Value Date Recorded Sex Assigned at Not on file Gender Identity Not on file Sexual Orientation Not on file documented as of this encounter Plan of Treatment Not on file documented as of this encounter Procedures Procedure Name Priority Date/Time Associated Diagnosis Comments PAP TEST- RESULT ONLY Routine 05/15/2013 0:00 EDT documented in this encounter Results * PAP TEST- RESULT ONLY (05/15/2013 0:00 EDT) Pathology Report: CYTOPATHOLOGY REPORT Reports generated via electronic interface contain original data; however they are lacking the format of the original report. Caution should be taken when reading/interpreti ng unformatted reports. Name: ? JEN GUEVARA ? Accession #: ? [id number] ? : ? 1955 (Age: 58) ??F ?Collect Date: ? 05/15/2013 ? Location: ? [facility] ? Receive Date: ? 05/16/2013 ? Provider: GEGE GARCIA [facility] Copy to: MELODIE HERNANDEZ MD ? Final Report SPECIMEN ADEQUACY ? Satisfactory for Evaluation - transformation zone component present GENERAL CATEGORIZATION ? Negative for Intraepithelial Lesion or Malignancy ?? Last Menstrual Period: 2002 Specimen/Source: ??Pap Test, Cervix/Endocervix, ThinPrep Imaging System with manual evaluation Document reviewed and electronically signed by: ? Korina Hinds, CT(ASCP)(IAC) ? Report ??Date: 05/21/2013 10:45 HPV with Pap Test ? Date Ordered: ? 05/21/2013 ? Status: ?? Signed Out ?Date Complete: ? 05/23/2013 ? By: ??System Interface ? Date Reported: ? 05/23/2013 ? Interpretation RESULT: Negative for HPV. No E6 or E7 mRNA is detected from HPV types 16,18,31,33,35, 39,45,51,52,56,58, 59,66, and 68 by relay checker mediated amplification. Comments Document reviewed and electronically signed by: ? System Interface ? Report date: 05/23/2013 By the signature above, the attending physician certifies that he/she has personally conducted a gross and/or microscopic examination of the described specimens and rendered or confirmed the above diagnosis. End of Report [facility] 05/15/2013 05/16/2013 Gege Garcia LEAD TECHNICIAN PATHOLOGY ORDERABLES Performing Organization Address City/State/[facility] Co de Phone Number [facility] [address] [place] [address] documented in this encounter Visit Diagnoses Not on filedocumented in this encounter
--- OUTSIDE RECORDS SUMMARY | 2024-05-12 16:43 | XMS_ITS | Encounter Summary ---
Author Organization [facility] Address [address] [place] [address] Care Team Providers Care Main Entree Cook And Cashier Name Role Phone Sammie Cordero MD Primary Care Provider [phone] Encounter Details Date Type Department Care Team (Late st Contact Info) Description 06/18/2023 Lab Requisition [facility] Pathology & Laboratory Medicine - [address] [id number] Outr Resulting Lab, Provider Social History Tobacco Use Types Packs/Day Years Used Date Smoking Tobacco: Never Assessed Sex and Gender Information Value Date Recorded Sex Assigned at Not on file Gender Identity Not on file Sexual Orientation Not on file documented as of this encounter Plan of Treatment Not on file documented as of this encounter Procedures Procedure Name Priority Date/Time Associated Diagnosis Comments PTH INTACT Routine 06/18/2023 15:02 EDT documented in this encounter Results * PTH INTACT (06/18/2023 15:02 EDT) Intact PTH 43 19 - 88 pg/mL 06/19/2023 11:31 EDT [facility] Blood VENOUS BLOOD / Unknown 06/18/2023 15:02 EDT 06/18/2023 21:34 EDT Provider Outr Resulting Lab CHEMISTRY & BLOOD GAS ORDERABLES [facility] [address] [place] [address] documented in this encounter Visit Diagnoses Not on filedocumented in this encounter Care Teams Main Entree Cook And Cashier Relationship Specialty Start Date End Date Sammie Cordero MD [address] [place] [phone] PCP - General 09/01/20 documented as of this encounter
--- OUTSIDE RECORDS SUMMARY | 2024-05-12 16:43 | XMS_ITS | Encounter Summary ---
Author Organization [facility] Address [address] [place] [address] Care Team Providers Care Bridal Gown Fitter Name Role Phone Unavailable Primary Care Provider Unavailabl e Encounter Details Date Type Department Care Team (Late st Contact Info) Description 12/01/1999 Results Only [facility] - [facility] [address] [place] [address] Trey Jacobo MD [address] [facility] [address] [place] [phone] Social History Tobacco Use Types Packs/Day Years Used Date Smoking Tobacco: Never Assessed Sex and Gender Information Value Date Recorded Sex Assigned at Not on file Gender Identity Not on file Sexual Orientation Not on file documented as of this encounter Plan of Treatment Not on file documented as of this encounter Procedures Procedure Name Priority Date/Time Associated Diagnosis Comments SURGICAL PATHOLOGY Routine 12/01/1999 8:17 EST documented in this encounter Results * SURGICAL PATHOLOGY (12/01/1999 8:17 EST) Pathology Report: SURGICAL PATHOLOGY REPORT Reports generated via electronic interface contain original data; however they are lacking the format of the original report. Caution should be taken when reading/interpreti ng unformatted reports. Name: ? JEN GUEVARA ? Accession #: ? [id number] ? : ? 1955 (Age: 44) ??F ? Collect Date: ? 12/01/1999 ? Location: ?Receive Date: ? 12/01/1999 ? Provider: TREY JACOBO MD Copy to: TREY MONACO MD ? Final Pathologic Diagnosis: MICROSCOPIC DIAGNOSIS: ? Skin of buttock, left, shave biopsy: ? - Fibroepithelial polyp. ? Document reviewed and electronically signed by: Conversion for MONCHO RAYA Report ??Date: 12/02/1999 00:00 By the signature above, the attending physician certifies that he/she has personally conducted a gross and/or microscopic examination of the described specimens and rendered or confirmed the above diagnosis. Specimen(s) Received: TISSUE SUBMITTED: ? Skin tag L buttock CLINICAL DATA: ? Benign appearing 2 cm skin tag Gross Description: GROSS: ? Received in formalin labelled Paola and skin tag left butt ? is a graff-castro, wrinkled, 1.5 x 1.5 x 0.3 cm papule. ??The specimen ? is inked, longitudinally bisected and is entirely submitted in ? one cassette. ??(Kelechi Cedeño/coral ? End of Report [facility] 12/01/1999 8:17 EST 12/01/1999 8:18 EST Trey Jacobo MD PATHOLOGY ORDERABLES [facility] [address] [place] [address] documented in this encounter Visit Diagnoses Not on filedocumented in this encounter
--- OUTSIDE RECORDS SUMMARY | 2024-05-12 16:43 | XMS_ITS | Encounter Summary ---
Author Organization [facility] Address [address] [place] [address] Care Team Providers Care Advertising Sales Assistant Name Role Phone Sammie Cordero MD Primary Care Provider [phone] Encounter Details Date Type Department Care Team (Late st Contact Info) Description 12/05/2021 Lab Requisition [facility] Pathology & Laboratory Medicine - [address] [address] Outr Resulting Lab, Provider Social History Tobacco [...] Date/Time Associated Diagnosis Comments PTH INTACT Routine 12/05/2021 10:40 EDT documented in this encounter Results * (ABNORMAL) PTH INTACT (12/05/2021 10:40 EDT) Intact PTH 98(H) 19 - 88 pg/mL 12/06/2021 11:01 EDT [facility] Blood VENOUS BLOOD / Unknown 12/05/2021 10:40 EDT 12/05/2021 16:59 EDT Provider Outr Resulting Lab CHEMISTRY & BLOOD GAS ORDERABLES [facility] [address] [place] [address] documented in this encounter Visit Diagnoses Not on filedocumented in this encounter Care Teams Advertising Sales Assistant Relationship Specialty Start Date End Date Sammie Cordero MD [address] [place] [phone] PCP - General 09/01/20 documented as of this encounter
--- OUTSIDE RECORDS SUMMARY | 2024-05-12 16:43 | XMS_ITS | Encounter Summary ---
[place] [address] Care Team Providers Care Composition Floor Setter Name Role Phone Naveed Mckinney MD Primary Care Provider [phone] Reason for Referral * Diagnostic Test (Routine) - Closed Specialty Diagnoses / Procedures Referred By [facility] Referred To Contact Radiology Diagnoses Multiple lesions of metastatic malignancy Procedures CT Guided Biopsy Bone(Extremities/Pelvis) Naveed Mckinney MD [address] [place] [address] [place] [address] [facility] [place] [address] Referral ID Status Reason Start Date Expiration Date V isits Requested Visits Authorized [id number] Closed Specialty Service Requested 01/17/2019 01/17/2020 1 1 Reason for Visit * Diagnostic Test (Routine) - Closed Specialty Diagnoses / Procedures Referred By [facility] Referred To Contact Radiology Diagnoses Multiple lesions of metastatic malignancy Procedures CT Guided Biopsy Bone(Extremities/Pelvis) Naveed Mckinney MD [address] [place] [address] [place] [place] [address] Referral ID Status Reason Start Date Expiration Date V isits Requested Visits Authorized [id number] Closed Specialty Service Requested 01/17/2019 01/17/2020 1 1 Encounter Details Date Type Department Care Team (Latest Contact Info) Description 01/21/2019 1:06 PM EDT - 01/21/2019 11:59 PM EDT Hospital Encounter [facility] at [facility] [place] [address] Naveed Mckinney MD [address] [place] [address] [place] [address] Multiple lesions of metastatic malignancy Discharge Disposition: Home Social History Tobacco Use Types Packs/Day Years Used Date Smoking Tobacco: Never Assessed Sex and Gender Information Value Date Recorded Sex Assigned at Female 11/05/2020 8:19 AM EST Gender Identity Not on file Sexual Orientation Straight 11/05/2020 8: 19 AM EST documented as of this encounter Last Filed Vital Signs Vital Sign Reading Time Taken Comments Blood Pressure 154/71 01/21/2019 4:11 PM EDT Pulse 71 01/21/2019 3:15 PM EDT Temperature 36 ??C (96.8 ??F) 01/21/2019 3:28 PM EDT Respiratory Rate 16 01/21/2019 4:11 PM EDT Oxygen Saturation 99% 01/21/2019 4:11 PM EDT Inhaled Oxygen Concentration - - Weight - - Height - - Body Mass Index - - documented in this encounter Discharge Instructions * Discharge Instructions* Paris Fernando RN - 01/21/2019 3:38 PM EDT [facility] Vascular and Interventional Radiology Biopsy Discharge Instructions ??? Bone biopsy: call your doctor immediately if you develop a sudden onset of weakness, increased pain or swelling at the biopsy site or heavy bleeding at the biopsy site. Activity And Diet: ??? Go home and rest quietly for the remainder of the day. You may resume your normal activities tomorrow. ??? Resume your usual diet after the procedure. ??? Do not drive, sign any important/legal documents, or make any important decisions for 24 hours following sedation medications. When to call your healthcare provider: ??? If you see any redness, swelling or drainage at the biopsy site. ??? If you develop chills. ??? If you have a fever greater than or equal to 101 degrees Fahrenheit. ??? If you develop pain around the biopsy site. Bandage: ??? Check the dressing/bandaid throughout the day for an increase in drainage. Keep the biopsy sitedry for 24 hours. Replace the bandaid as needed. You may shower 24 hours after the biopsy. Medication: ??? DO NOT take aspirin-containing products, ibuprofen, or blood-thinning medication for the next 24 hours unless your doctor says you may do so. ??? Generally you may use acetaminophen as needed for discomfort unless you have liver disease and are instructed not to take acetaminophen. Biopsy Results ??? The results of your biopsy should be available within 5 business days and will be reported to you by your primary cattle care worker or the clinician who ordered the biopsy. Please do not call us forresults as we will not have them. ??? If you have not been contacted by your clinician within 5 business days you should call that office for further information. When to call the Interventional Radiology Department: Please call with any questions or concerns. If it is during regular office hours, please call [phone]. If it is after regular office hours, or on weekends or holidays, please call [phone] and ask to speak to the [employer] county home demonstration agent for Interventional Radiology. You have received medication during your procedure to help lessen anxiety and keep you comfortable.These medications affect judgement and reaction time. We recommend that you do not drive, operate equipment, sign any important documents, or smoke unattended for 24 hours following your procedure. Because of the sedation, be careful on stairs, as you may be unsteady on your feet. You may resume your regular diet as tolerated. IV site -- slight redness, or tenderness is normal, you can use a warm compress. If tenderness and redness increases or foul drainage occurs, please contact your M. D. Revised 10/01/15 documented in this encounter Medications at Time of Discharge Medication Sig Dispensed Refills Start Date End Date acetaminophen (Tylenol) 325 mg tablet Take 650 mg by mouth every 4 hours as needed. 12/31/2018 metoprolol succinate (TOPROL-XL) 100 mg Tablet Sustained Release 24 hr Take 200 mg by mouth once. 0 11/07/2018 05/07/2023 documented as of this encounter Progress Notes * Caprice Pulido RN - 01/21/2019 2:59 PM EDT To procedure room CT 1 via stretcher. Onto table prone. All monitors, O2, safety strap in place. Med's per protocol. Needle out: 1515 * Caprice Pulido RN - 01/20/2019 12:50 PM EDT [facility] Name: JEN GUEVARA Date of : 1955 AGE: 63 y.o. Address: [place] [address] (home) [phone] (work) Mobile: Telephone Information: Referring Provider: Naveed Mckinney REASON FOR VISIT: Order Questions Answers Where will study be performed? [facility] [120] Laterality Bilateral Is the patient on anticoagulant / anitplatelet therapy ? Other: see comments field Does the patient have any pertinent outside imaging? Yes If so, please submit to [facility] Repeat Bone bx from 01/01- pathology accidently threw away specimen Reason for exam and clinical history: Metastatic Lesions. Biopsy of bone lesions. R/O multiple myeloma VS. metastatic disease. Hypercalcemia + ENA. Other pertinent information: Outside order- in scanned docs No Known Allergies Pertinent PMH: Patient Active Problem List Diagnosis Code ??? 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 ARF (acute renal failure) N17.9 ??? Hypercalcemia E83.52 ??? Nodule of left lung R91.1 ??? Bone lesion M89.9 Pertinent PSH: Past Surgical History: Procedure Laterality Date ??? APPENDECTOMY ??? CT GUIDED BIOPSY BONE(EXTREMITIES/PELVIS) 01/01/2019 CT Guided Biopsy Bone(Extremities/Pelvis) 01/01/2019 [facility] RAD CAT SCAN ??? LAPAROSCOPY 1980 ??? OVARY REMOVAL Left Date/Procedure Meds given/comments 01/01/19: CT Guided R Iliac bone bx Fentanyl 175mcg, Versed 2.5mg - tolerated very well 01/21/19 CT guided R Iliac bone biopsy Fentanyl 100 mcg IV, Versed 2 mg IV. Pt tolerated procedure very well. ? Laboratory Results: Lab Results Component Value Date PLATELET 255 01/01/2019 Medications: Prior to Admission medications Medication Sig Start Date End Date Taking? Authorizing Provider metoprolol succinate (TOPROL-XL) 100 mg Tablet Sustained Release 24 hr Take 100 mg by mouth once. 11/07/18 PROVIDER, HISTORICAL documented in this encounter H&P Notes * Teresa Duarte MD - 01/21/2019 2:02 PM EDT Interventional Radiology - Pre-Procedure Note Problem List: There are no hospital problems to display for this patient. Active Non-Hospital Problems Diagnosis ??? Cardiomyopathy, dilated ??? ARF (acute renal failure) ??? Hypercalcemia ??? Nodule of left lung ??? Bone lesion ID: 63 y.o. Female PCP: Naveed Mckinney MD History of Present Illness: Diffusely abnormal appearance of the bones on CT scan in a patient with weakness and clinical concern for malignancy Past Medical and Surgical History: dilated cardiomyopathy, s/p appendectomy, s/p oophorectomy Past Medical History: Diagnosis Date ??? ARF (acute renal failure) 12/31/2018 ??? Bone lesion 12/31/2018 ??? 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 Hypercalcemia 12/31/2018 ??? Nodule of left lung 12/31/2018 Past Surgical History: Procedure Laterality Date ??? APPENDECTOMY ??? CT GUIDED BIOPSY BONE(EXTREMITIES/PELVIS) 01/01/2019 CT Guided Biopsy Bone(Extremities/Pelvis) 01/01/2019 [facility] RAD CAT SCAN ??? LAPAROSCOPY 1980 ??? OVARY REMOVAL Left Prior To Admission Medications: (Not in a hospital admission) Allergies: No Known Allergies Family History: No family history on file. Social History and Habits: Social History Socioeconomic History ??? Marital status: Spouse name: Not on file ??? Number of children: Not on file ??? Years of education: Not on file ??? Highest education level: Not on file Occupational History ??? Not on file Social Needs ??? Financial resource strain: Not on file ??? Food insecurity: Worry: Not on file Inability: Not on file ??? Transportation needs: Medical: Not on file Non-medical: Not on file Tobacco Use ??? Smoking status: Not on file Substance and Sexual Activity ??? Alcohol use: Not on file ??? Drug use: Not on file ??? Sexual activity: Not on file Lifestyle ??? Physical activity: Days per week: Not on file Minutes per session: Not on file ??? Stress: Not on file Relationships ??? Social connections: Talks on phone: Not on file Gets together: Not on file Attends baptism service: Not on file Active member of club or organization: Not on file Attends meetings of clubs or organizations: Not on file Relationship status: Not on file ??? Intimate partner violence: Fear of current or ex partner: Not on file Emotionally abused: Not on file Physically abused: Not on file Forced sexual activity: Not on file Other Topics Concern ??? Not on file Social History Narrative ??? Not on file Immunizations: There is no immunization history on file for this patient. Physical Exam: Last Set of Vitals: Last value Range last 24 hrs Temperature Temp: 35.8 ??C (96.5 ??F) Temp: [35.8 ??C (96.5 ??F)] Heart Rate Heart Rate: 62 Heart Rate: [62] Blood Pressure BP: 157/72 BP: (157)/(72) Respiratory Rate Resp: 16 Resp: [16] SpO2 SpO2: 100 % SpO2: [100 %] Physical Exam: Heart:RRR Lungs:CTAB Laboratory (Last 24 Hours): none Radiology: 12/24/[address] images were reviewed, as were the 01/01/19 CT images used to guide the 01/01/[address] images showed a diffusely heterogeneous appearance of the marrow concerning for multiple small lesions. ASA Classification ___ Class 1 Healthy patient, no medical problems _x__ Class 2 Mild systemic disease ___ Class 3 Severe systemic disease, but not incapacitating ___ Class 4 Severe systemic disease that is a constant threat to life ___ Class 5 Moribund, not expected to live 24 hours irrespective of operation Mallampati Classification ___ Class I: soft palate, fauces, uvula, pillars ___ Class II: soft palate, fauces, portion of uvula _x__ Class III: soft palate, base of uvula ___ Class IV: hard palate only Medications to discontinue for procedure: none Prophylactic antibiotic: none Planned access site / position: prone position; access site at right posterior iliac crest A copy of this document will be sent to the patient's Primary Care Physician and/or Referring Physician. Teresa Duarte MD 01/21/2019 Source Note - Christopher Bennett MD - 12/31/2018 9:40 AM EDT Images from the original note were not included. Interventional Radiology - Pre-Procedure Note Problem List: @HOSPPROBL@ @NONHOSPPROBL@ ID: 63 y.o. Female PCP: Naveed Mckinney MD History of Present Illness: Hypercalcemia with lung nodule and diffusely abnormal bone worrisome for metastatic disease. Past Medical and Surgical History: No past medical history on file. Record in scanned documents, has history of dilated cardiomyopathy No past surgical history on file. Prior To Admission Medications: (Not in a hospital admission) Allergies: Allergies not on file Family History: No family history on file. Social History and Habits: Social History Socioeconomic History ??? Marital status: Not on file Spouse name: Not on file ??? Number of children: Not on file ??? Years of education: Not on file ??? Highest education level: Not on file Occupational History ??? Not on file Social Needs ??? Financial resource strain: Not on file ??? Food insecurity: Worry: Not on file Inability: Not on file ??? Transportation needs: Medical: Not on file Non-medical: Not on file Tobacco Use ??? Smoking status: Not on file Substance and Sexual Activity ??? Alcohol use: Not on file ??? Drug use: Not on file ??? Sexual activity: Not on file Lifestyle ??? Physical activity: Days per week: Not on file Minutes per session: Not on file ??? Stress: Not on file Relationships ??? Social connections: Talks on phone: Not on file Gets together: Not on file Attends baptism service: Not on file Active member of club or organization: Not on file Attends meetings of clubs or organizations: Not on file Relationship status: Not on file ??? Intimate partner violence: Fear of current or ex partner: Not on file Emotionally abused: Not on file Physically abused: Not on file Forced sexual activity: Not on file Other Topics Concern ??? Not on file Social History Narrative ??? Not on file Immunizations: There is no immunization history on file for this patient. Physical Exam: Last Set of Vitals: Last value Range last 24 hrs Temperature Temp: -- Heart Rate Heart Rate: -- Blood Pressure BP: ()/() Respiratory Rate Resp: -- SpO2 SpO2: -- Physical Exam Laboratory (Last 24 Hours): Radiology: diffuely sclerotic bone with subtle lucencies Medications to discontinue for procedure: none Prophylactic antibiotic: none Planned access site / position: prone positon posterior approach right posterior iliac crest Sedation:moderate A copy of this document will be sent to the patient's Primary Care Physician and/or Referring Physician. CHRISTOPHER BENNETT MD 12/31/2018 documented in this encounter Plan of Treatment Not on file documented as of this encounter Procedures Procedure Name Priority Date/Time Associated Diagnosis Comments CT GUIDED BIOPSY BONE(EXTREMITIES/PE LVIS) Routine 01/21/2019 3:29 PM EDT Multiple lesions of metastatic malignancy SURGICAL PATHOLOGY REPORT Routine 01/21/2019 3:07 PM EDT SPECIMEN TO PATHOLOGY Routine 01/21/2019 2:42 PM EDT documented in this encounter Results * CT Guided Biopsy Bone(Extremities/Pelvis) (01/21/2019 3:29 PM EDT) Anatomical Region Laterality Modality Computed Tomogra phy Narrative 01/21/2019 4:01 PM EDT PROCEDURE: CT GUIDED right posterior iliac crest bone biopsy OPERATORS: Teresa Duarte MD INFORMED CONSENT: Informed consent was obtained and all of the patient's questions were answered prior to the start of the procedure. MODERATE SEDATION: Was provided by the Special Procedures nurse using 2 mg of Versed and 100 mcg of Fentanyl intravenously. Continuous vital sign monitoring was performed. DESCRIPTION: After informed consent was obtained, a pre- procedural time-out was performed as per [facility] [place]. The patient was placed in the CT Suite in the prone position. An area of heterogeneous marrow within the right posterior iliac crest was localized on axial CT images. The needle entry site was marked under CT guidance. The skin was prepped and draped in the usual sterile fashion. 1% buffered Lidocaine was used for local anesthesia. Maximum sterile barrier technique was utilized. The 13G 10-cm Arrow On-Control bone biopsy needle within the 11-gauge 6-cm introducer was employed. The penetration needle was advanced under imaging guidance. The bone biopsy needle was subsequently advanced coaxially. The tip of the biopsy needle was recorded, and 5 core specimens, each measuring approximately 1 cm in length, were obtained. All needles were removed and hemostasis obtained by manual compression. The samples were prepared in formalin for surgical pathology analysis. 1 hour after the biopsy, I telephoned the anatomic pathology lab to confirm that the specimen had been received and it had. COMPLICATIONS: There were no immediate postprocedure complications. The patient left the fluoroscopic suite to the ambulatory Recovery Room in stable condition. MEDICATIONS: 2 mg of Versed and 100 mcg of Fentanyl intravenously Resident/Fellow: None. Attending: Teresa Duarte MD I performed this procedure. Thank you for letting us participate in the care of this patient. For questions regarding this report, please contact the number below. ? Electronically signed by: Teresa Duarte [facility] ([phone]), at 01/21/2019 4:01 PM Procedure Note Teresa Duarte MD - 01/21/2019 PROCEDURE: CT GUIDED right posterior iliac crest bone biopsy OPERATORS: Teresa Duarte MD INFORMED CONSENT: Informed consent was obtained and all of the patient's questions were answered prior to the start of the procedure. MODERATE SEDATION: Was provided by the Special Procedures nurse using 2 mg of Versed and 100mcg of Fentanyl intravenously. Continuous vital sign monitoring was performed. DESCRIPTION: After informed consent was obtained, a pre- procedural time-out wasperformed as per [facility] protocol. The patient was placed in the CT Suite in the proneposition. An area of heterogeneous marrow within the right posterior iliac crestwas localized on axial CT images. The needle entry site was marked under CT guidance. The skin was prepped and draped in the usual sterile fashion.1% buffered Lidocaine was used for local anesthesia. Maximum sterilebarrier technique was utilized. The 13G 10-cm Arrow On-Control bone biopsy needle within the 28--qe introducer was employed. The penetration needle was advanced underimaging guidance. The bone biopsy needle was subsequently advanced coaxially. Thetip of the biopsy needle was recorded, and 5 core specimens, each measuring approximately 1 cm in length, were obtained. All needles were removedand hemostasis obtained by manual compression. The samples were prepared informalin for surgical pathology analysis. 1 hour after the biopsy, I telephonedthe anatomic pathology lab to confirm that the specimen had been received andit had. COMPLICATIONS: There were no immediate postprocedure complications. The patient leftthe fluoroscopic suite to the ambulatory Recovery Room in stable condition. MEDICATIONS: 2 mg of Versed and 100 mcg of Fentanyl intravenously Resident/Fellow: None. Attending: Teresa Duarte MD I performed this procedure. Thank you for letting us participate in the care of this patient. Forquestions regarding this report, please contact the number below. Electronically signed by: Teresa Duarte [facility] ([phone]),at 01/21/2019 4:01 PM Naveed Mckinney MD IMG CT ORDERABLES * Surgical Pathology Report (01/21/2019 3:07 PM EDT) Final Diagnosis [id number] ? Location: [facility] The signing pathologist has (i) examined the relevant preparation(s) for the specimen(s) and (ii) rendered or confirmed the diagnosis(es). . 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 see Discussion. - Bone marrow with trilinear hematopoises Electronically signed by: ??Luis Hilario MD Verified: ??01/24/2019 ?Dermatopathologist, Bone & Soft Tissue Pathologist Performed at: ??[facility] [place], [place], [place] DISCUSSION Sections show ??a few well-formed intertrabecular noncaseating sarcoidal-type granulomata. I do not see any evidence of malignant neoplastic proliferation. The differential diagnosis includes an infectious process. Immunohistochemistry for mycobacteria is negative and special stain PAS/F is also negative for fungal hyphae. However their sensitivity is not 100% and correlation with cultures could be considered. If an infectious process has been confidently excluded the overall findings are compatible with sarcoidosis. If the latter does not explain the overall clinicoradiologic findings and there is strong suspicion for a neoplastic process additional sampling will be needed. ADDITIONAL STUDIES Immunohistochemistry Studies: Formalin-fixed, paraffin-embedded tissue sections are studied using the polymer technique with appropriate positive and negative controls. ?These IHC studies provide the pathologist with adjunctive diagnostic information. Antibody specificity has been verified by testing antibodies on a series of in-house tissues with known immunohistochemical performance characteristics. The clinical interpretation of any antibody positive staining or its absence is evaluated within the context of clinical presentation, morphology, histopathological criteria and other diagnostic tests. Block ? Antibody ?Result (Positive/Negative) A2 ? [id number] ?Negative CLINICAL INFORMATION Specimen Submitted: A - Pelvis biopsy Clinical History and Diagnosis: Metastatic lesions; R/O multiple myeloma vs metastatic disease. Hypercalcemia + ENA SPECIMEN PROCESSING A - Labeled/Fixative: Pelvis, formalin. Quantity/Size: Multiple, ranging from 0.4 x 0.3 cm to 0.8 x 0.3 cm. Tissue Description: Hard, red needle core biopsies of bone. Sections/Processing: Blocks submitted for decalcification in EDTA: A1-A2. Entirely submitted in 2 cassettes labeled A1-A2. ??sns 01/24/2019 3:41 PM EDT [facility] BONE STRUCTURE / Unknown 01/21/2019 3:07 PM EDT 01/21/2019 3:07 PM EDT Teresa Duarte MD PATHOLOGY/CYTOLOGY O YUSUF Performing Organization Address [facility] [place] [address] * Specimen to Pathology (01/21/2019 2:42 PM EDT) AP Specimen 01/21/2019 2:42 PM EDT 01/21/2019 2:42 PM EDT Narrative [facility] - 01/21/2019 2:42 PM EDT Specimen requisition ordered. ??Separate Pathology report to follow Naveed Mckinney MD PATHOLOGY/CYTOLOGY O YUSUF Performing Organization Address [facility] [place] [place] [address] documented in this encounter Visit Diagnoses Diagnosis Multiple lesions of metastatic malignancy documented in this encounter Administered Medications Inactive Administered Medications - up to 3 most recent administrations Medication Order MAR Action Action Date Dose Rate Site fentaNYL 50 mcg/mL multi-dose injection 25-50 mcg, Intravenous, EVERY 5 MIN PRN, Starting on 01/21/19 at 1408, Until 01/21/19 at 1618, Pain, per unit protocol, - Start dose 50 mcg (reduce dose to 25 mcg if history of sedation sensitivity). - Titration dose 25-50 mcg IV, (based on patient response) every 3 minutes PRN, to maintain procedural pain less than 2 per pain Scale. Maximum dose: 50 mcg/dose, 250 mcg/hour For use in Interventional Radiology (IR) only for procedural sedation with direct provider supervision and verbal order., Angio/IR (Intra-Procedure), Routine Given 01/21/2019 3:07 PM EDT 25 mcg Given 01/21/2019 2:58 PM EDT 25 mcg Given 01/21/2019 2:48 PM EDT 50 mcg lidocaine (XYLOCAINE) 10 mg/mL (1 %) injection 10 mg 10 mg, Subcutaneous, ONCE, 1 dose, On 01/21/19 at 1430, For use in Interventional Radiology (IR) only for procedure with direct provider supervision and verbal order., Angio/IR (Intra-Procedure), Routine Given 01/21/2019 3:04 PM EDT 10 mg midazolam (PF) (VERSED) multi-dose injection 0.5-1 mg 0.5-1 mg, Intravenous, EVERY 3 MIN PRN, Starting on 01/21/19 at 1408, Until 01/21/19 at 1618, Sleep, - Start dose; 1 mg (Reduce dose to 0.5 mg if history of sedation sensitivity). - Titration dose: 0.5 mg - 1 mg (based on patient response) every 3 minutes PRN to obtain RASS score of -3. Maximum dose: 1 mg per dose, 5 mg/hour. For use in Interventional Radiology (IR) only for procedural sedation with direct provider supervision and verbal order., Angio/IR (Intra-Procedure), Routine Given 01/21/2019 3:07 PM EDT 0.5 mg Given 01/21/2019 2:58 PM EDT 0.5 mg Given 01/21/2019 2:48 PM EDT 1 mg sodium chloride 0.9 % flush 5 mL 5 mL, Intravenous, EVERY 12 HOURS, First dose on 01/21/19 at 1430, Until Discontinued, Day of Surgery (Day of Procedure), Routine Given 01/21/2019 3:05 PM EDT 5 mLs documented in this encounter Care Teams Composition Floor Setter Relationship Specialty Start Date End Date Naveed Mckinney MD PCP - General General Internal Medicine 12/23/18 documented as of this encounter
--- OUTSIDE RECORDS SUMMARY | 2024-05-12 16:43 | XMS_ITS | Encounter Summary ---
Author Organization [facility] Address [address] [place] [address] Care Team Providers Care Irrigation Tax Assessor Collector Name Role Phone Sammie Cordero MD Primary Care Provider [phone] Encounter Details Date Type Department Care Team (Late st Contact Info) Description 11/30/2020 Lab Requisition [facility] Pathology & Laboratory Medicine - [facility] [address], [place] [address] Outr Resulting Lab, Provider Social History Tobacco [...] Procedure Name Priority Date/Time Associated Diagnosis Comments SPEP, INCLUDES QUANTITATION OF MONOCLONAL SPIKE Routine 11/29/2020 9:22 EDT PROTEIN, TOTAL Today 11/29/2020 9:22 EDT documented in this encounter Results * PROTEIN, TOTAL (11/29/2020 9:22 EDT) Blood VENOUS BLOOD / Unknown 11/29/2020 9:22 EDT 11/30/2020 16:27 EDT Provider Outr Resulting Lab CHEMISTRY & BLOOD GAS ORDERABLES [facility] [address] [place] [address] documented in this encounter Visit Diagnoses Not on filedocumented in this encounter Care Teams Irrigation Tax Assessor Collector Relationship Specialty Start Date End Date Sammie Cordero MD [address] [place] [phone] PCP - General 09/01/20 documented as of this encounter
--- OUTSIDE RECORDS SUMMARY | 2024-05-12 16:43 | XMS_ITS | Encounter Summary ---
Author Organization Pending Sale To [facility] Address [facility] [place] [address] Care Team Providers Care Organizational Consultant Name Role Phone Naveed Mckinney MD Primary Care Provider [phone] Encounter Details Date Type Department Care Team (Late st Contact Info) Description 12/24/2018 Telephone [place]ology [place] [address] Rosaura Lyn MD [facility] [address] HEMATOLOGY/[place] [address] Social History Tobacco Use Types Packs/Day Years Used Date Smoking Tobacco: Never Assessed Sex and Gender Information Value Date Recorded Sex Assigned at Female 11/05/2020 8:19 AM EST Gender Identity Not on file Sexual Orientation Straight 11/05/2020 8: 19 AM EST documented as of this encounter Miscellaneous Notes * Telephone Encounter - Rosaura Lyn MD - 12/24/2018 12:24 PM EDT Brief Hematology Fellow Note: Received a call from Dr. Korey Mcneil at [facility] regarding Mrs. Jen Guevara, a 63y/o woman who presented with confusion and pain and was found to be hypercalcemic (Calcium 14), with an ENA (Cr. 5.0), and a CT non-contrast with diffuse lytic lesions. He is concerned about possible multiple myeloma. At this point, her presentation is certainly concerning for malignancy, but unclear etiology, as many malignancies can cause lytic bone metastases and hypercalcemia. She is not anemic, and CT C/A/P also revealed a concerning adenexal lesion and lung lesion. Recommend obtaining an SPEP/UPEP/Serum Free light chains and B2MG to evaluate for myeloma (though light chains will likely be elevated in renal failure). Would also recommend further evaluation of the adenexal lesion as this may be the source of primary malignancy. In the interim, recommend continued evaluation/management of ENA and hypercalcemia. Providers will call if they need any additional assistance with her malignancy workup. Rosaura Lyn MD Hematology/Oncology Fellow Pager #[phone] 12/28/18 documented in this encounter Plan of Treatment Not on file documented as of this encounter Visit Diagnoses Not on filedocumented in this encounter Care Teams Organizational Consultant Relationship Specialty Start Date End Date Naveed Mckinney MD PCP - General General Internal Medicine 12/23/18 documented as of this encounter
--- OUTSIDE RECORDS SUMMARY | 2024-05-12 16:43 | XMS_ITS | Encounter Summary ---
Author Organization [facility] Address [address] [place] [address] Care Team Providers Care Manager Commodities Name Role Phone Sammie Cordero MD Primary Care Provider [phone] Encounter Details Date Type Department Care Team (Late st Contact Info) Description 06/05/2022 Lab Requisition [facility] Pathology & Laboratory Medicine - [address] [phone] Outr Resulting Lab, Provider Social History Tobacco [...] Procedure Name Priority Date/Time Associated Diagnosis Comments HEPATITIS C AB W REFLEX TO HCV RNA BY PCR Routine 06/05/2022 8:10 EDT PTH INTACT Routine 06/05/2022 8:10 EDT documented in this encounter Results * PTH INTACT (06/05/2022 8:10 EDT) Intact PTH 36 19 - 88 pg/mL 06/06/2022 19:13 EDT [facility] Blood VENOUS BLOOD / Unknown 06/05/2022 8:10 EDT 06/06/2022 16:26 EDT Provider Outr Resulting Lab CHEMISTRY & BLOOD GAS ORDERABLES Performing Organization Address [facility]/ZIP Co de Phone Number [facility] [address] [place] [address] * HEPATITIS C AB W REFLEX TO HCV RNA BY PCR (06/05/2022 8:10 EDT) Hep C Antibody Negative Negative 06/07/2022 10:28 EDT [facility] Blood VENOUS BLOOD / Unknown 06/05/2022 8:10 EDT 06/06/2022 16:26 EDT Provider Outr Resulting Lab CHEMISTRY & BLOOD GAS ORDERABLES Performing Organization Address [facility] Co de Phone Number [facility] [address] [place] [address] documented in this encounter Visit Diagnoses Not on filedocumented in this encounter Care Teams Manager Commodities Relationship Specialty Start Date End Date Sammie Cordero MD [address] [place] [phone] PCP - General 09/01/20 documented as of this encounter
--- OUTSIDE RECORDS SUMMARY | 2024-05-12 16:43 | XMS_ITS | Encounter Summary ---
Author Organization [facility] [place] [address] Care Team Providers Care Outside Event Sales Specialist Name Role Phone Naveed Mckinney MD Primary Care Provider [phone] Encounter Details Date Type Department Care Team (Late st Contact Info) Description 01/03/2019 Orders Only [place]ph[place] [address] Kanika Spring MD [facility] [place] [address] ENA (acute kidney injury) Social History Tobacco Use Types Packs/Day Years Used Date Smoking Tobacco: Never Assessed Sex and Gender Information Value Date Recorded Sex Assigned at Female 11/05/2020 8:19 AM EST Gender Identity Not on file Sexual Orientation Straight 11/05/2020 8: 19 AM EST documented as of this encounter Plan of Treatment Not on file documented as of this encounter Visit Diagnoses Diagnosis ENA (acute kidney injury) Acute kidney failure, unspecified documented in this encounter Care Teams Outside Event Sales Specialist Relationship Specialty Start Date End Date Naveed Mckinney MD PCP - General General Internal Medicine 12/23/18 documented as of this encounter
--- OUTSIDE RECORDS SUMMARY | 2024-05-12 16:43 | XMS_ITS | Encounter Summary ---
Author Organization [facility] Address [address] [place] [address] Care Team Providers Care Dishwasher Name Role Phone Sammie Cordero MD Primary Care Provider [phone] Encounter Details Date Type Department Care Team (Late st Contact Info) Description 05/25/2021 Lab Requisition [facility] Pathology & Laboratory Medicine - [address] [phone] Outr Resulting Lab, Provider Social History Tobacco [...] Date/Time Associated Diagnosis Comments PTH INTACT Routine 05/24/2021 11:03 EDT documented in this encounter Results * PTH INTACT (05/24/2021 11:03 EDT) Intact PTH 38 19 - 88 pg/mL 05/26/2021 10:04 EDT [facility] Blood VENOUS BLOOD / Unknown 05/24/2021 11:03 EDT 05/25/2021 16:38 EDT Provider Outr Resulting Lab CHEMISTRY & BLOOD GAS ORDERABLES [facility] [address] [place] [address] documented in this encounter Visit Diagnoses Not on filedocumented in this encounter Care Teams Dishwasher Relationship Specialty Start Date End Date Sammie Cordero MD [address] [place] [phone] PCP - General 09/01/20 documented as of this encounter
--- OUTSIDE RECORDS SUMMARY | 2024-05-12 16:43 | XMS_ITS | Encounter Summary ---
Author Organization [facility] Address [address] [place] [address] Care Team Providers Care Label Fuser Tender Name Role Phone Unknown, Provider Primary Care Provider Sammie Cordero MD Primary Care Provider Encounter Details Date Type Department Care Team (Late st Contact Info) Description 08/27/2020 Lab Requisition [facility] Pathology & Laboratory Medicine - [facility] [address] [place] [address] Outr Resulting Lab, Provider Social History Tobacco [...] Procedure Name Priority Date/Time Associated Diagnosis Comments DO NOT ORDER STANDALONE - BROAD COVID TEST Today 08/27/2020 13:30 EST COVID-19 TESTING Routine 08/27/2020 13:3 0 EST documented in this encounter Results * DO NOT ORDER STANDALONE - BROAD COVID TEST (08/27/2020 13:30 EST) COVID-19 rt-PCR Result NEGATIVE Negative 08/29/2020 15:45 EST [facility] Comment: 2019-novel Coronavirus (2019-nCoV) not detected by the qRT-PCR assay. Consider testing for other respiratory viruses or re-collecting for 2019-nCoV testing. Note: Optimum timing for peak viral levels during infections caused by 2019-nCoV have not been determined. Collection of multiple specimens from the same patient may be necessary to detect the virus. Limitations Positive results are indicative of active infection with SARS-CoV-2 but do not rule out bacterial infection or co-infection with other viruses. The agent detected may not be the definite cause of disease. In addition, detection of viral RNA may not indicate the presence of infectious virus or that SARS-CoV-2 is the causative agent for clinical symptoms. Negative results do not preclude SARS-CoV-2 infection and should not be used as the sole basis for patient management decisions. Negative results must be combined with clinical observations, patient history, and epidemiological information. False negative results may also occur if amplification inhibitors are present in the specimen or if inadequate numbers of organisms are present in the specimen. Optimum specimen types and timing for peak viral levels during infections caused by SARS-CoV-2 have not been fully determined. Collection of multiple specimens (types and time points) from the same patient may be necessary to detect the virus. The test was validated for use with upper respiratory specimens obtained via nasopharyngeal or oropharyngeal swabs in VTM, UTM, M4, M5, M6, saline, and MTM media. The performance of this test has not been established for other specimens. Specimens collected using other FDA recommended Specimen Collection Materials listed in the FDA COVID-19 [employer] communication (December 11, 2019) are processed with the caveat that they were not all validated for use with this test and the result must be interpreted in this context. Furthermore, a false negative results may occur if a specimen is improperly collected, transported or handled. If the virus mutates in the RT-PCR target region, SARS-CoV-2 may not be detected or may be detected less predictably. Inhibitors or other types of interference may produce a false negative result. An interference study evaluating the effect of common cold medications was not performed. This test is not FDA-cleared but its performance characteristics were established by our CLIA-certified, CAP-accredited, high complexity laboratory in accordance with CLIA regulations, College [employer] (CAP) guidelines (Dec 04, 2019), and FDA guidance (Nov 15, 2019). This test is only for use under the Food and Drug Administration's Emergency Use Authorization. Swab ENTIRE NASOPHARYNX / Unknown 08/27/2020 13:30 EST 08/27/2020 20:59 EST Provider Outr Resulting Lab MICROBIOLOGY - GENERAL ORDERABLES [facility] [place] * COVID-19 TESTING (08/27/2020 13:30 EST) COVID-19 rt-PCR Result NEGATIVE Negative 08/29/2020 19:00 EST [facility] Comment: 2019-novel Coronavirus (2019-nCoV) not detected by the qRT-PCR assay. Consider testing for other respiratory viruses or re-collecting for 2019-nCoV testing. Note: Optimum timing for peak viral levels during infections caused by 2019-nCoV have not been determined. Collection of multiple specimens from the same patient may be necessary to detect the virus. Limitations Positive results are indicative of active infection with SARS-CoV-2 but do not rule out bacterial infection or co-infection with other viruses. The agent detected may not be the definite cause of disease. In addition, detection of viral RNA may not indicate the presence of infectious virus or that SARS-CoV-2 is the causative agent for clinical symptoms. Negative results do not preclude SARS-CoV-2 infection and should not be used as the sole basis for patient management decisions. Negative results must be combined with clinical observations, patient history, and epidemiological information. False negative results may also occur if amplification inhibitors are present in the specimen or if inadequate numbers of organisms are present in the specimen. Optimum specimen types and timing for peak viral levels during infections caused by SARS-CoV-2 have not been fully determined. Collection of multiple specimens (types and time points) from the same patient may be necessary to detect the virus. The test was validated for use with upper respiratory specimens obtained via nasopharyngeal or oropharyngeal swabs in VTM, UTM, M4, M5, M6, saline, and MTM media. The performance of this test has not been established for other specimens. Specimens collected using other FDA recommended Specimen Collection Materials listed in the FDA COVID-19 [employer] communication (December 11, 2019) are processed with the caveat that they were not all validated for use with this test and the result must be interpreted in this context. Furthermore, a false negative results may occur if a specimen is improperly collected, transported or handled. If the virus mutates in the RT-PCR target region, SARS-CoV-2 may not be detected or may be detected less predictably. Inhibitors or other types of interference may produce a false negative result. An interference study evaluating the effect of common cold medications was not performed. This test is not FDA-cleared but its performance characteristics were established by our CLIA-certified, CAP-accredited, high complexity laboratory in accordance with CLIA regulations, College [employer] (CAP) guidelines (Dec 04, 2019), and FDA guidance (Nov 15, 2019). This test is only for use under the Food and Drug Administration's Emergency Use Authorization. Performing Lab [facility] 08/29/2020 19:00 EST [facility] Swab 08/27/2020 13:3 0 EST 08/27/2020 20:59 EST Provider Outr Resulting Lab MICROBIOLOGY - GENERAL ORDERABLES Performing Organization Address City/State/[facility] Co de Phone Number [facility] [address] [place] [address] [facility] [place] [place] documented in this encounter Visit Diagnoses Not on filedocumented in this encounter Care Teams Label Fuser Tender Relationship Specialty Start Date End Date Unknown, Provider, PCP - General 08/07/15 08/31/20 Sammie Cordero MD [address] [place] [phone] PCP - General 09/01/20 documented as of this encounter
--- OUTSIDE RECORDS SUMMARY | 2024-05-12 16:43 | XMS_ITS | Encounter Summary ---
[place] [address] Care Team Providers Care Supervisor Dimension Warehouse Name Role Phone Naveed Mckinney MD Primary Care Provider [phone] Encounter Details Date Type Department Care Team (Latest Contact Info) Description 01/01/2019 7:55 AM EDT Laboratory Appointment Lab [address] [place] [phone] Pre-op testing; Bone lesion Social History Tobacco Use Types Packs/Day Years [...] Procedure Name Priority Date/Time Associated Diagnosis Comments PLATELET COUNT STAT 01/01/2019 8:05 AM EDT Pre-op testing Bone lesion documented in this encounter Results * Platelet count (01/01/2019 8:05 AM EDT) Platelet 255 145 - 357 x10(3)/mc L [facility] Immature Plt % 2.7 0.0 - 7.4 % [facility] Comment: Limitation of the Immature Platelet Fraction (IPF)-May be less reliable when the platelet count is less than 68d713/uL due to statistical imprecision. The IPF value provides an assessment of the Bone Marrow production status. ??It is useful in differentiating Thrombocytopenia caused by platelet destruction/consumption versus decreased production. It also helps to determine the imminent release of platelets and can be therefore a helpful parameter in Chemotherapy and Bone marrow transplant patients. ELEVATED IPF value: ?? When the bone marrow is in a state of over production such as when increased destruction and consumption are the underlying issue. ?? When the marrow is recovering post chemotherapy or bone marrow transplant. LOW to NORMAL IPF value: ?? When the bone marrow in not responding and is in a decreased state of production. References: [employer] The Clinical Value of the Immature Platelet Fraction (IPF) in Cell Recovery Document Number 10-1143 02/2011 [employer] The Role of the Immature Platelet Fraction (IPF) in the Differential Diagnosis of Thrombocytopenia, Document MKT-[id number] V05 P05/14 Blood specimen (specimen) 01/01/2019 8:05 AM EDT 01/01/2019 8:11 AM EDT Narrative Resulting Agency Comment Spec In Lab Camilla Beatty MD HEMATOLOGY ORDERABLE [facility] [place] [address] documented in this encounter Visit Diagnoses Diagnosis Pre-op testing Preoperative examination, unspecified Bone lesion Disorder of bone and cartilage, unspecified documented in this encounter Care Teams Supervisor Dimension Warehouse Relationship Specialty Start Date End Date Naveed Mckinney MD PCP - General General Internal Medicine 12/23/18 documented as of this encounter
--- OUTSIDE RECORDS SUMMARY | 2024-05-12 16:43 | XMS_ITS | Encounter Summary ---
Author Organization [facility] Address [address] [place] [address] Care Team Providers Care Cut Off Operator Scorer Name Role Phone Unknown, Provider Primary Care Provider [phone] Encounter Details Date Type Department Care Team (Late st Contact Info) Description 07/21/2016 Results Only [facility] [phone] Gege Garcia, [address] [address] Social History Tobacco Use Types Packs/Day Years [...] Diagnosis Comments PAP TEST- RESULT ONLY Routine 07/21/2016 0:00 EDT documented in this encounter Results * PAP TEST- RESULT ONLY (07/21/2016 0:00 EDT) Pathology Report: CYTOPATHOLOGY REPORT Reports generated via electronic interface contain original data; however they are lacking the format of the original report. Caution should be taken when reading/interpreti ng unformatted reports. Name: ? JEN GUEVARA ? Accession #: ? [id number] ? : ? 1955 (Age: 61) ??F ?Collect Date: ? 07/21/2016 ? Location: ? [facility] ? Receive Date: ? 07/24/2016 ? Provider: GEGE GARCIA [facility] Copy to: MELODIE HERNANDEZ MD ? Final Report SPECIMEN ADEQUACY ? Satisfactory for Evaluation - assessment of transformation zone component not applicable ( e.g. atrophy, vaginal sample, hysterectomy) GENERAL CATEGORIZATION ? Negative for Intraepithelial Lesion or Malignancy ?? Last Menstrual Period: 2002 Specimen/Source: ??Pap Test, Cervix/Endocervix, ThinPrep Imaging System with manual evaluation Document reviewed and electronically signed by: ? Isela Juarez, CT(ASCP) ? Report ??Date: 07/26/2016 15:19 HPV with Pap Test ? Date Ordered: ? 07/26/2016 ? Status: ?? Signed Out ?Date Complete: ? 07/28/2016 ? By: ??System Interface ? Date Reported: ? 07/28/2016 ? Interpretation RESULT: Negative for HPV. No E6 or E7 mRNA is detected from HPV types 16,18,31,33,35, 39,45,51,52,56,58, 59,66, and 68 by radiology physician mediated amplification. Comments Document reviewed and electronically signed by: ? System Interface ? Report date: 07/28/2016 By the signature above, the attending physician certifies that he/she has personally conducted a gross and/or microscopic examination of the described specimens and rendered or confirmed the above diagnosis. End of Report [facility] 07/21/2016 07/24/2016 Gege Garcia TECHNOLOGY SALES CONSULTANT PATHOLOGY ORDERABLES [facility] [address] [place] [address] documented in this encounter Visit Diagnoses Not on filedocumented in this encounter Care Teams Cut Off Operator Scorer Relationship Specialty Start Date End Date Unknown, Provider, PCP - General 08/07/15 08/31/20 documented as of this encounter
--- OUTSIDE RECORDS SUMMARY | 2024-05-12 16:43 | XMS_ITS | Encounter Summary ---
[place] [address] Care Team Providers Care Solar Business Developer Name Role Phone Naveed Mckinney MD Primary Care Provider [phone] Encounter Details Date Type Department Care Team (Late st Contact Info) Description 01/03/2019 Telephone Nephrology [place] [phone] Pita Javed Social History Tobacco Use Types Packs/Day Years Used Date Smoking Tobacco: Never Assessed Sex and Gender Information Value Date Recorded Sex Assigned at Female 11/05/2020 8:19 AM EST Gender Identity Not on file Sexual Orientation Straight 11/05/2020 8: 19 AM EST documented as of this encounter Miscellaneous Notes * Telephone Encounter - Pita Javed - 01/03/2019 9:31 AM EDT Spoke to pt advised her 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 Pt stated she knew nothing about it. I am the one who made the apt. And I only make apts with pt directly. Pt advised she is seeing her PCP at 9:30 01/03. I called PCP office to let them know we tried to yohan. And I will call pt back to joana. documented in this encounter Plan of Treatment Not on file documented as of this encounter Visit Diagnoses Not on filedocumented in this encounter Care Teams Solar Business Developer Relationship Specialty Start Date End Date Naveed Mckinney MD PCP - General General Internal Medicine 12/23/18 documented as of this encounter
--- OUTSIDE RECORDS SUMMARY | 2024-05-12 16:43 | XMS_ITS | Clinical Summary ---
Author Organization [facility] Address [address] [place] [address] Care Team Providers Care Procedure Analyst Name Role Phone Sammie Cordero MD Primary Care Provider [phone] Social History Tobacco Use Types Packs/Day Years Used Date Smoking Tobacco: Never Assessed Sex and Gender Information Value Date Recorded Sex Assigned at Not on file Gender Identity Not on file Sexual Orientation Not on file Plan of Treatment Health Maintenance Due Date Last Done Comments RSV Immunization ( o r 60+ Years) (1 - 1-dose 60+ series) 2014 Fall Risk Screening 2019 COVID-19 Vaccine ( season) 2023 Hepatitis C Screen Completed 06/05/2022 Procedures Procedure Name Priority Date/Time Associated Diagnosis Comments HEPATITIS C AB W REFLEX TO HCV RNA BY PCR Routine 06/05/2022 8:10 EDT from Last 3 Months or Most Recently Relevant to Health Maintenance Results * HEPATITIS C AB W REFLEX TO HCV RNA BY PCR (06/05/2022 8:10 EDT) Hep C Antibody Negative Negative 06/07/2022 10:28 EDT [facility] Blood VENOUS BLOOD / Unknown 06/05/2022 8:10 EDT 06/06/2022 16:26 EDT Provider Outr Resulting Lab CHEMISTRY & BLOOD GAS ORDERABLES [facility] [address] [place] [address] from Last 3 Months or Most Recently Relevant to Health Maintenance Jen Guevara Personal/Family Self [address] [place] [address] Jen Guevara Personal/Family Self [address] [place] [address] Jen Guevara Personal/Family Self 1955 [address] [facility] [address] [place] [address] Jen Guevara Personal/Family Self [address] [place] [address] Care Teams Procedure Analyst Relationship Specialty Start Date End Date Sammie Cordero MD [address] [place] [phone] PCP - General 09/01/20
--- OUTSIDE RECORDS SUMMARY | 2024-05-12 16:43 | XMS_ITS | Encounter Summary ---
Author Organization [facility] Address [address] [place] [address] Care Team Providers Care Laminator Preforms Name Role Phone Sammie Cordero MD Primary Care Provider [phone] Encounter Details Date Type Department Care Team (Late st Contact Info) Description 12/01/2020 Lab Requisition [facility] Pathology & Laboratory Medicine - [address] [id number] Outr Resulting Lab, Provider Social History Tobacco [...] Comments SPEP, INCLUDES QUANTITATION OF MONOCLONAL SPIKE PERFORMABLE Today 11/29/2020 9:22 EDT PTH INTACT Routine 11/29/2020 9:22 EDT SPEP, INCLUDES QUANTITATION OF MONOCLONAL SPIKE Routine 11/29/2020 9:22 EDT documented in this encounter Results * SPEP, INCLUDES QUANTITATION OF MONOCLONAL SPIKE PERFORMABLE (11/29/2020 9:22 EDT) Albumin % 59.1 55.8 - 66.1 % 12/02/2020 12:54 EDT [facility] Alpha-1 % 4.0 2.9 - 4.9 % 12/02/2020 12:54 EDT [facility] Alpha-2 % 9.3 7.1 - 11.8 % 12/02/2020 12:54 EDT [facility] Beta % 11.2 8.4 - 13.1 % 12/02/2020 12:54 EDT [facility] Gamma % 16.4 11.1 - 18.8 % 12/02/2020 12:54 EDT [facility] SPEP Comment No apparent monoclonal protein seen on serum electrophoresis 12/02/2020 12:54 EDT [facility] Comment:See scanned/suppleme ntary report. Total Protein 7.3 6.3 - 8.2 g/dL 12/02/2020 12:54 EDT [facility] Blood VENOUS BLOOD / Unknown 11/29/2020 9:22 EDT 12/01/2020 16:05 EDT Provider Outr Resulting Lab CHEMISTRY & BLOOD GAS ORDERABLES Performing Organization Address City/[facility]/ZIP Co de Phone Number [facility] [address] [place] [address] * (ABNORMAL) PTH INTACT (11/29/2020 9:22 EDT) Intact PTH 92(H) 19 - 88 pg/mL 12/02/2020 9:50 EDT [facility] Blood VENOUS BLOOD / Unknown 11/29/2020 9:22 EDT 12/01/2020 16:05 EDT Provider Outr Resulting Lab CHEMISTRY & BLOOD GAS ORDERABLES [facility] [address] [place] [address] documented in this encounter Visit Diagnoses Not on filedocumented in this encounter Care Teams Laminator Preforms Relationship Specialty Start Date End Date Sammie Cordero MD [address] [place] [phone] PCP - General 09/01/20 documented as of this encounter
--- OUTSIDE RECORDS SUMMARY | 2024-05-12 16:43 | XMS_ITS | Encounter Summary ---
Author Organization [facility] Address [address] [place] [address] Care Team Providers Care Protozoology Teacher Name Role Phone Sammie Cordero MD Primary Care Provider [phone] Encounter Details Date Type Department Care Team (Late st Contact Info) Description 07/30/2023 Lab Requisition [facility] Pathology & Laboratory Medicine - [address] [address] Outr Resulting Lab, Provider Social History Tobacco [...] Procedure Name Priority Date/Time Associated Diagnosis Comments LEGIONELLA ANTIGEN DETECTION, URINE Routine 07/29/2023 12:15 EST documented in this encounter Results * (ABNORMAL) LEGIONELLA ANTIGEN DETECTION, URINE (07/29/2023 12:15 EST) Legionella Antigen Detection Positive( A) Negative 07/30/2023 22:27 EST [facility] Urine URINE / Unknown 07/29/2023 1 2:15 EST 07/30/2023 18:55 EST Provider Outr Resulting Lab MICROBIOLOGY - GENERAL ORDERABLES [facility] [address] [place] [address] documented in this encounter Visit Diagnoses Not on filedocumented in this encounter Care Teams Protozoology Teacher Relationship Specialty Start Date End Date Sammie Cordero MD [address] [place] [address] [phone] PCP - General 09/01/20 documented as of this encounter
--- OUTSIDE RECORDS SUMMARY | 2024-05-12 16:43 | XMS_ITS | Encounter Summary ---
Author Organization [facility] [place] [address] Care Team Providers Care Candy Department Manager Name Role Phone Unavailable Primary Care Provider Unavailabl e Encounter Details Date Type Department Care Team (Late st Contact Info) Description 12/20/2018 Ancillary Procedure [place] [address] Ora Gautam MD [facility] [place] [address] Social History Tobacco Use Types Packs/Day Years [...] Procedure Name Priority Date/Time Associated Diagnosis Comments FILM LIBRARY STORAGE ONLY DX CHEST Routine 12/20/2018 12:00 AM EDT documented in this encounter Results * Film Library- Storage Only DX Chest (12/20/2018 12:00 AM EDT) Narrative RAD - 12/30/2018 5:07 PM EDT This exam is auto-finalizing. It's purpose is for storage only. Ora Gautam MD IMG FILM LIBRARY ORD ERABLES RAD [place] documented in this encounter Visit Diagnoses Not on filedocumented in this encounter
--- OUTSIDE RECORDS SUMMARY | 2024-05-12 16:43 | XMS_ITS | Encounter Summary ---
Author Organization [facility] [place] [address] Care Team Providers Care Pharmacist In Charge Name Role Phone Naveed Mckinney MD Primary Care Provider [phone] Encounter Details Date Type Department Care Team (Late st Contact Info) Description 12/28/2018 Telephone Hematology [place] [address] Rosaura Lyn MD [facility] DR HEMATOLOGY/[place] [address] Social History Tobacco Use Types Packs/Day Years Used Date Smoking Tobacco: Never Assessed Sex and Gender Information Value Date Recorded Sex Assigned at Female 11/05/2020 8:19 AM EST Gender Identity Not on file Sexual Orientation Straight 11/05/2020 8: 19 AM EST documented as of this encounter Miscellaneous Notes * Telephone Encounter - Rosaura Lyn MD - 12/28/2018 1:21 PM EDT Brief Hematology/Oncology Fellow note: Received a call from Dr. Sierra at [facility] in followup regarding Ms. Guevara, a 63y/o woman with a hx of cardiomyopathy, HTN, and HLD who presented with pain and confusion and was found to have an anemia (hgb ~8-9), ENA (Cr 5.0 on admit, down to 4.06), Hypercalcemia (14 on admit down to 10s), as well as diffuse lytic lesions on imaging - along with a 1.8cm lung nodule and an adenexal lesion (though CT C/A/P w/out contrast d/t ENA). Earlier this week I recommended additional workup with SPEP/UPEP, free light chains, immunoglobulins, as well as ultrasound imaging to further characterize the pelvic finding. Most recent results reveal: WBC 7.1, Hgb 8.8, Plts 146 Cr 4.06 (Cr. 5.0 on admission), BUN 56, 02/2018 normal Cr. Calcium ~10 LFTs normal Diffuse osseous lytic lesions on imaging 1.8cm nodule in L. Lingula US revealing an anterior uterine homogenous mass most likely 2/2 fibroid, and reportedly a complex adrenal cyst(?) SPEP/UPEP normal - no M1 band [place] FLC - 10mg/dl [place] FLC - 5mg/dl Ratio elevated at 1.97 After further review of the labs, her free light chains are likely elevated in the setting of renalimpairment and do not likely represent myeloma. Furthermore, her presentation is less likely due tomyeloma given normal SPEP/UPEP with such extensive bony disease. Many solid tumors present with lytic lesions (breast, lung, etc) and thus recommend additional workup. Recommend further evaluation with IR guided biopsy of a bone lesion, and ensuring she has had a recent mammogram and colonoscopy. She may also benefit from a bone marrow biopsy but would prioritize bone lesion biopsy first given non-impressive free light chains. Will plan to get her into [facility] Oncology as soon as primary cancer type is determined. Also recommend Nephrology evaluation. Given renal function is stable without need for dialysis - we can help coordinate expedited outpatient evaluation if she is discharged. All questions were answered. Rosaura Lyn MD Hematology/Oncology Fellow Pager #[phone] 12/28/18 documented in this encounter Plan of Treatment Not on file documented as of this encounter Visit Diagnoses Not on filedocumented in this encounter Care Teams Pharmacist In Charge Relationship Specialty Start Date End Date Naveed Mckinney MD PCP - General General Internal Medicine 12/23/18 documented as of this encounter
--- OUTSIDE RECORDS SUMMARY | 2024-05-12 16:43 | XMS_ITS | Referral Summary ---
Author Organization [facility] Address [address] [place] [address] Care Team Providers Care Aircraft Sheet Metal Mechanic Name Role Phone Sammie Cordero MD Primary Care Provider [phone] Social History Tobacco Use Types Packs/Day Years Used Date Smoking Tobacco: Never Assessed Sex and Gender Information Value Date Recorded Sex Assigned at Not on file Gender Identity Not on file Sexual Orientation Not on file Plan of Treatment Not on file Procedures Procedure Name Priority Date/Time Associated Diagnosis Comments HEPATITIS C AB W REFLEX TO HCV RNA BY PCR Routine 06/05/2022 8:10 EDT from Last 3 Months or Most Recently Relevant to Health Maintenance Results * HEPATITIS C AB W REFLEX TO HCV RNA BY PCR (06/05/2022 8:10 EDT) Hep C Antibody Negative Negative 06/07/2022 10:[address] [facility] Blood VENOUS BLOOD / Unknown 06/05/2022 8:10 EDT 06/06/2022 16:26 EDT Provider Outr Resulting Lab CHEMISTRY & BLOOD GAS ORDERABLES [facility] [address] [place] [address] from Last 3 Months or Most Recently Relevant to Health Maintenance Jen Guevara Personal/Family Self 1955 [address] [facility] [address] [place] [phone] Jen Guevara Personal/Family Self 1955 [address] [facility] [address] [place] [address] Jen Guevara Macey Personal/Family Self 1955 [address] [facility] [address] [place] [phone] PaolaJen Macey Personal/Family Self 1955 [address] [facility] [address] [place] [address] Care Teams Aircraft Sheet Metal Mechanic Relationship Specialty Start Date End Date Sammie Cordero MD [address] [place] [phone] [facility] - General 09/01/20
--- OUTSIDE RECORDS SUMMARY | 2024-05-12 16:43 | XMS_ITS | Encounter Summary ---
Author Organization [facility] Address [facility] [place] [address] Care Team Providers Care Director Of Special Education Name Role Phone Naveed cMkinney MD Primary Care Provider [phone] Encounter Details Date Type Department Care Team (Late st Contact Info) Description 01/18/2019 Notes Only Radiology at [facility] [place] [address] Teresa Duarte MD [facility] [place] [address] Social History Tobacco Use Types Packs/Day Years Used Date Smoking Tobacco: Never Assessed Sex and Gender Information Value Date Recorded Sex Assigned at Female 11/05/2020 8:19 AM EST Gender Identity Not on file Sexual Orientation Straight 11/05/2020 8: 19 AM EST documented as of this encounter Progress Notes * Teresa Duarte MD - 01/18/2019 2:27 PM EDT MUSCULOSKELETAL RADIOLOGY PRE-PROCEDURE NOTE Name: Jen Guevara Date of : 1955 Age: 63 y.o. Referring Physician (if different): No primary care provider on file. Indication: Diffusely abnormal appearance of the bones on 12/24/18 CT. Biopsy sample from previous bone biopsy was lost, and patient has been referred for re-biopsy. Planned Procedure: CT-guided right posterior iliac crest bone biopsy Chief Complaint/Diagnosis: Diffusely abnormal appearance of the bones on 12/24/18 CT. Biopsy sample from previous bone biopsy was lost. Pertinent Past Medical/Surgical History: HTN, HLD, dilated cardiomyopathy, s/p appendectomy, s/p oophorectomy Patient Active Problem List Diagnosis Code ??? 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 ARF (acute renal failure) N17.9 ??? Hypercalcemia E83.52 ??? Nodule of left lung R91.1 ??? Bone lesion M89.9 No Known Allergies Current Outpatient Medications on File Prior to Visit Medication Sig Dispense Refill ??? metoprolol succinate (TOPROL-XL) 100 mg Tablet Sustained Release 24 hr Take 100 mg by mouth once. 0 No current facility-administered medications on file prior to visit. Pertinent ROS: as per HPI Pertinent Family History: non contributory Social History: noncontributory Labs: Lab Results Component Value Date/Time PLATELET 255 01/01/2019 08:05 AM Imagin12/24/18 CT images of the pelvis were reviewed, showing a diffusely abnormal, mixed npxs-gaq-jbl-density appearance of the bones. ASA: 2. Assessment / Plan: Medications to stop: none Prophylactic antibiotic: none Planned positioning: prone position Planned access site: posterior right iliac crest Image guidance plan: CT guidance Sedation plan: moderate sedation documented in this encounter Plan of Treatment Not on file documented as of this encounter Visit Diagnoses Not on filedocumented in this encounter Care Teams Director Of Special Education Relationship Specialty Start Date End Date Naveed Mckinney MD PCP - General General Internal Medicine 12/23/18 documented as of this encounter
--- OUTSIDE RECORDS SUMMARY | 2024-05-12 16:43 | XMS_ITS | Encounter Summary ---
Author Organization [facility] [place] [address] Care Team Providers Care Promotional Advertising Assistant Name Role Phone Naveed Mckinney MD Primary Care Provider [phone] Encounter Details Date Type Department Care Team (Late st Contact Info) Description 12/30/2018 5:10 PM EDT Ancillary Procedure [place] [address] Ora Gautam MD [facility] DR DIAGNOSTIC [place] [address] Social History Tobacco Use Types Packs/Day Years [...] Associated Diagnosis Comments FILM LIBRARY STORAGE ONLY ULTRASOUND STUDY Routine 12/30/2018 5:09 PM EDT documented in this encounter Results * Film Library- Storage Only Ultrasound Study (12/30/2018 5:09 PM EDT) Narrative [facility] - 12/30/2018 5:09 PM EDT This exam is auto-finalizing. It's purpose is for storage only. Ora Gautam MD [facility] FILM LIBRARY ORD ERABLES [place], [place] documented in this encounter Visit Diagnoses Not on filedocumented in this encounter Care Teams Promotional Advertising Assistant Relationship Specialty Start Date End Date Naveed Mckinney MD PCP - General General Internal Medicine 12/23/18 documented as of this encounter
--- OUTSIDE RECORDS SUMMARY | 2024-05-12 16:43 | XMS_ITS | Encounter Summary ---
Author Organization [facility] Address [address] [place] [address] Care Team Providers Care Sewer Repairer Name Role Phone Sammie Cordero MD Primary Care Provider [phone] Encounter Details Date Type Department Care Team (Late st Contact Info) Description 09/01/2020 Lab Requisition [facility] Pathology & Laboratory Medicine - [address] [address] Thien Degroot MD [address] [place] [address] [address] [place], [place] [id number] Encounter for screening for malignant neoplasm of colon Social History Tobacco Use Types Packs/Day Years Used Date Smoking Tobacco: Never Assessed Sex and Gender Information Value Date Recorded Sex Assigned at Not on file Gender Identity Not on file Sexual Orientation Not on file documented as of this encounter Plan of Treatment Not on file documented as of this encounter Procedures Procedure Name Priority Date/Time Associated Diagnosis Comments SURGICAL PATHOLOGY Today 09/01/2020 10 :04 EST Encounter for screening for malignant neoplasm of colon documented in this encounter Results * SURGICAL PATHOLOGY (09/01/2020 10:04 EST) Final Diagnosis A. COLON, TRANSVERSE, POLYP, BIOPSY: - Tubular adenoma. B. COLON, CECUM, POLYP, BIOPSY: - Tubular adenoma. C. COLON, ASCENDING, MASS, BIOPSY: - Colonic mucosa with no significant diagnostic abnormalities. - Negative for dysplasia and malignancy. - Deeper sections x3 examined. D. COLON, TRANSVERSE, POLYPS, BIOPSY: - Sessile serrated adenomas. - Tubular adenomas. E. COLON, DESCENDING, POLYPS, BIOPSY: - Tubular adenomas. - Hyperplastic polyps. F. COLON, SIGMOID, POLYP, BIOPSY: - Tubular adenoma. G. COLON, 35 CM, POLYP, BIOPSY: - Large tubular adenoma (>1.0 cm), completely excised. H. COLON, ASCENDING, POLYPS, BIOPSY: - Suggestive of sessile serrated adenoma. I. COLON, SIGMOID, POLYP, BIOPSY: - Tubular adenoma. 09/03/2020 12:55 [facility] Attestation There was significant resident/fellow involvement in the diagnostic evaluation of this case. By the signature below, the attending physician certifies that they have personally conducted a gross and/or microscopic examination of the described specimens and rendered or confirmed the above diagnosis. 09/03/2020 12:55 [facility] at 1255 Clinical History Screening; clinical diagnosis code: Z12.11 09/03/2020 12:55 [facility] Gross Description A. Received in formalin labelled with proper patient identification (initials C, B) and transverse colon polyp are 2 light graff tissues measuring 0.1 x 0.1 x 0.1 cm and 0.3 x 0.3 x 0.2 cm. Submitted intact in A1. B. Received in formalin labelled with proper patient identification (initials C, B) and cecum polyp are 4 light graff tissues ranging in size from 0.1 x 0.1 x 0.1 cm up to 0.3 x 0.2 x 0.1 cm. Submitted intact in B1. C. Received in formalin labelled with proper patient identification (initials C, B) and bx of ascending colon mass are 2 light graff tissues measuring 0.2 x 0.2 x 0.1 cm and 0.2 x 0.2 x 0.2 cm. Submitted intact in C1. D. Received in formalin labelled with proper patient identification (initials C, B) and transverse colon polyp x5 are 12 graff-pink tissues ranging in size from 0.1 x 0.1 x 0.1 cm up to 0.4 x 0.2 x 0.2 cm. Submitted intact in D1-D3. E. Received in formalin labelled with proper patient identification (initials C, B) and descending colon polyp x2 are 4 light graff tissues ranging in size from 0.2 x 0.2 x 0.1 cm up to 0.4 x 0.2 x 0.2 cm. Submitted intact in E1. S10 F. Received in formalin labelled with proper patient identification (initials C, B) and sigmoid polyp is a graff-pink tissue measuring 0.3 x 0.2 x 0.2 cm. Submitted intact in F1. G. Received in formalin labelled with proper patient identification (initials C, B) and polyp at 35 cm is a dark red-brown polypoid tissue measuring 1.5 x 0.6 x 0.6 cm. Trisected and submitted entirely in G1. H. Received in formalin labelled with proper patient identification (initials C, B) and ascending colon polyp x2 are 4 graff-pink tissues ranging in size from 0.1 x 0.1 x 0.1 cm up to 0.3 x 0.3 x 0.2 cm. Submitted intact in H1. I. Received in formalin labelled with proper patient identification (initials C, B) and sigmoid polyp are 2 graff-pink tissues measuring 0.2 x 0.2 x 0.2 cm each. Submitted intact in I1. BENNETT CHRISTY(ASCP) 09/01/2020 19:24 09/03/2020 12:55 [facility] Resident/Wenceslao w: Lisa Hedrick MD 09/03/2020 12:55 [facility] Performing Lab [facility] 09/03/2020 12:55 [facility] Scanned Images 09/03/2020 12:55 [facility] Tissue ENTIRE SIGMOID COLON / Unknown 09/01/2020 10:04 EST 09/01/2020 16:16 EST Tissue specimen (specimen) CECUM STRUCTURE / Unknown 09/01/2020 10:04 EST 09/01/2020 16:16 EST Tissue specimen (specimen) ASCENDING COLON STRUCTURE / Unknown 09/01/2020 10:04 EST 09/01/2020 16:16 EST Tissue specimen (specimen) TRANSVERSE COLON STRUCTURE / Unknown 09/01/2020 10:04 EST 09/01/2020 16:16 EST Tissue specimen (specimen) DESCENDING COLON STRUCTURE / Unknown 09/01/2020 10:04 EST 09/01/2020 16:16 EST Tissue specimen (specimen) SIGMOID COLON STRUCTURE / Unknown 09/01/2020 10:04 EST 09/01/2020 16:16 EST Tissue specimen (specimen) COLON STRUCTURE / Unknown 09/01/2020 10:04 EST 09/01/2020 16:16 EST Tissue specimen (specimen) ASCENDING COLON STRUCTURE / Unknown 09/01/2020 10:04 EST 09/01/2020 16:19 EST Tissue specimen (specimen) SIGMOID COLON STRUCTURE / Unknown 09/01/2020 10:04 EST 09/01/2020 16:19 EST Thien Degroot MD PATHOLOGY ORDERA [facility] [address] [place] [address] documented in this encounter Visit Diagnoses Diagnosis Encounter for screening for malignant neoplasm of colon Special screening for malignant neoplasms, colon documented in this encounter Care Teams Sewer Repairer Relationship Specialty Start Date End Date Sammie Cordero MD [address] [place] [phone] PCP - General 09/01/20 documented as of this encounter
--- OUTSIDE RECORDS SUMMARY | 2024-05-12 16:43 | XMS_ITS | Encounter Summary ---
Author Organization [facility] Address [address] [place] [address] Care Team Providers Care Speck Dyer Name Role Phone Sammie Cordero MD Primary Care Provider [phone] Encounter Details Date Type Department Care Team (Late st Contact Info) Description 02/21/[address] [facility] Pathology & Laboratory Medicine - [address] [phone] Outr Resulting Lab, Provider Social History Tobacco [...] Date/Time Associated Diagnosis Comments PTH INTACT Routine 02/20/2023 13:05 EDT documented in this encounter Results * PTH INTACT (02/20/2023 13:05 EDT) Intact PTH 73 19 - 88 pg/mL 02/21/2023 18:24 EDT [facility] Blood VENOUS BLOOD / Unknown 02/20/2023 13:05 EDT 02/21/2023 17:09 EDT Provider Outr Resulting Lab CHEMISTRY & BLOOD GAS ORDERABLES [facility] [address] [place] [address] documented in this encounter Visit Diagnoses Not on filedocumented in this encounter Care Teams Speck Dyer Relationship Specialty Start Date End Date Sammie Cordero MD [address] [place] [phone] PCP - General 09/01/20 documented as of this encounter
--- OUTSIDE RECORDS SUMMARY | 2024-05-12 16:43 | XMS_ITS | Encounter Summary ---
Author Organization [facility] Address [address] [place] [address] Care Team Providers Care Saddle And Side Wire Stitcher Name Role Phone Unavailable Primary Care Provider Unavailabl e Encounter Details Date Type Department Care Team (Late st Contact Info) Description 02/24/2010 Results Only [facility] - [facility] ([facility] [address], [place] [id number] Gege Garcia, [facility] [address] [place] [address] [place] [address] Social History Tobacco Use Types Packs/Day Years Used Date Smoking Tobacco: Never Assessed Sex and Gender Information Value Date Recorded Sex Assigned at Not on file Gender Identity Not on file Sexual Orientation Not on file documented as of this encounter Plan of Treatment Not on file documented as of this encounter Procedures Procedure Name Priority Date/Time Associated Diagnosis Comments HPV DETECTION, HIGH RISK TYPES Routine 02/24/2010 13:59 EDT CYTOPATHOLOGY Routine 02/24/2010 0:00 EDT documented in this encounter Results * HUMAN PAPILLOMA VIRUS DNA TEST (02/24/2010 13:59 EDT) Specimen Description Cervix, ThinPrep vial [facility] Result Negative for HPV types 16, 18, 31, 33, 35, 39, 45, 51, 52, 56, 58, 59, and 68. [facility] Report Status Final 03/07/2010 [facility] 02/24/2010 13:5 9 EDT 03/02/2010 13:59 EDT Gege Garcia NEUROSCIENCE SPECIALIST MICROBIOLOGY - GENER AL ORDERABLES [facility] [address] [place] [address] * CYTOPATHOLOGY (02/24/2010 0:00 EDT) Pathology Report: CYTOPATHOLOGY REPORT ? Reports generated via electronic interface contain original data; ? however they are lacking the format of the original report. ? Caution should be taken when reading/interpreti ng unformatted reports. ? Name: ? JEN GUEVARA ? Accession #: ? [id number] ? : ? 1955 (Age: 54) ??F ?Collect Date: ? 02/24/2010 ? Location: ? [facility] ? Receive Date: ? 02/25/2010 ? Provider: ?GEGE WIL NEUROSCIENCE SPECIALIST ? Copy to: ? Specimen/Source: ?Pap Test, Cervix/Endocervix, ThinPrep Imaging System ? with manual evaluation ? Last Menstrual Period: ? 2004 ? Other: ? HPVDX - HPV testing requested regardless of diagnosis on current ThinPrep Pap ?? test. ? SPECIMEN ADEQUACY ? Satisfactory for Evaluation ? - assessment of transformation zone component not applicable ( e.g. atrophy, ? vaginal sample, hysterectomy) ? GENERAL CATEGORIZATION ? Negative for Intraepithelial Lesion or Malignancy ? Document reviewed and electronically signed by: ? Korina Hinds, KRISTINA(ASCP)(IAC) ? Report Date: ??03/02/2010 10:22 ? End of Report ? [facility] 02/24/2010 02/25/2010 Gege Garcia NEUROSCIENCE SPECIALIST PATHOLOGY ORDERABLES [facility] [address] [place] [address] documented in this encounter Visit Diagnoses Not on filedocumented in this encounter
--- OUTSIDE RECORDS SUMMARY | 2024-05-12 16:43 | XMS_ITS | Encounter Summary ---
Author Organization [facility] Address [address] [place] [address] Care Team Providers Care Machine Feed Operator Name Role Phone Sammie Cordero MD Primary Care Provider [phone] Encounter Details Date Type Department Care Team (Late st Contact Info) Description 12/01/2020 Lab Requisition [facility] Pathology & Laboratory Medicine - [address] [phone] Outr Resulting Lab, Provider Social History Tobacco [...] Procedure Name Priority Date/Time Associated Diagnosis Comments RHEUMATOID FACTOR Routine 12/01/2020 8:3 9 EDT ANTI NUCLEAR AB (ZAKIYA), IFA Routine 12/01/2020 8:39 EDT documented in this encounter Results * (ABNORMAL) RHEUMATOID FACTOR (12/01/2020 8:39 EDT) Rheumatoid Factor 20.1(H) <12.0 IU/mL 12/01/2020 21:15 EDT [facility] Blood VENOUS BLOOD / Unknown 12/01/2020 8:39 EDT 12/01/2020 20:38 EDT Provider Outr Resulting Lab CHEMISTRY & BLOOD GAS ORDERABLES Performing Organization Address [facility]/ZIP Co de Phone Number [facility] [address] [place] [address] * ANTI NUCLEAR AB (ZAKIYA), IFA (12/01/2020 8:39 EDT) ZAKIYA Interpretation Negative Negative 2020 14:55 EDT [facility] Comment:No titer performed, ZAKIYA Screen is negative. Blood VENOUS BLOOD / Unknown 12/01/2020 8:39 EDT 12/01/2020 20:38 EDT Narrative [facility] - 12/02/2020 14:55 EDT Results were obtained with the [employer] [place] N[employer] Lite HEp-2 ZAKIYA Kit by indirect immunofluorescence. Provider Outr Resulting Lab IMMUNOLOGY A ND SEROLOGY ORDERABLES Performing Organization Address [facility] Co de Phone Number [facility] [address] [place] [address] documented in this encounter Visit Diagnoses Not on filedocumented in this encounter Care Teams Machine Feed Operator Relationship Specialty Start Date End Date Sammie Cordero MD [address] [place] [phone] PCP - General 09/01/20 documented as of this encounter
--- OUTSIDE RECORDS SUMMARY | 2024-05-12 16:43 | XMS_ITS | Encounter Summary ---
Author Organization [facility] Address [address] [place] [address] Care Team Providers Care Rotary Drum Tanner Name Role Phone Unavailable Primary Care Provider Unavailabl e Encounter Details Date Type Department Care Team (Late st Contact Info) Description 10/31/1999 Results Only [facility] [address] [place] [address] Trey Jacobo MD [address] [place] [address] Social History Tobacco Use Types [...] Priority Date/Time Associated Diagnosis Comments CYTOPATHOLOGY Routine 10/31/1999 11:00 EST documented in this encounter Results * CYTOPATHOLOGY (10/31/1999 11:00 EST) Pathology Report: CYTOPATHOLOGY REPORT Reports generated via electronic interface contain original data; however they are lacking the format of the original report. Caution should be taken when reading/interpreti ng unformatted reports. Name: ? JEN GUEVARA ? Accession #: ? [id number] : ? 1955 (Age: 44) ??F ?Collect Date: ? 10/31/1999 Location: ?Receive Date: ? 10/31/1999 Provider: ?TREY JACOBO MD Copy to: ?TREY JACOBO MD ? Specimen/Source: ?Pap Smear (One Slide) Last Menstrual Period: ? GYNECOLOGIC ??CYTOPATHOLOGY ??REPORT Name: SAVJEN L ? FA : 1955 ?? 44Y F ?Client ID: [id number] SS#: [id number] ? Clinician: TREY JACOBO MD ?? Location: [facility] ??Copy to: ?? Specimen: ?Pap Smear (One Slide) ? Source: Cervix/Endocervix ?Collected: 10/28/99 ? Received: 10/31/1999 ?LMP: 10/06/99 ? Hormone Therapy: No ? : No ? Radiation Therapy: No ?? Post : No ?Chemotherapy: No ?IUD: No ? Prev Abnormal Pap: No ?? Clinical Hx: ?(Blank chan indicate information not provided on requisition) SPECIMEN ADEQUACY: ? Satisfactory But Limited By ? Obscuring Inflammation ?? GENERAL CATEGORIZATION: ? WITHIN NORMAL LIMITS ? Reviewed And Electronically Signed By: ? Hunter Quintana Jr., CT(ASCP) ? Report Date: ?? 11/02/1999 [employer] Archived Tests - Final Diagnosis Text Field: Clinical History : ? Document reviewed and electronically signed by: ? Conversion ? Report Date: ??11/02/1999 00:00 End of Report [facility] 10/31/1999 11:0 0 EST 10/31/1999 11:01 EST Trey Jacobo MD PATHOLOGY ORDERABLES Performing Organization Address City/State/[facility] Co de Phone Number [facility] [address] [place] [address] documented in this encounter Visit Diagnoses Not on filedocumented in this encounter
--- OUTSIDE RECORDS SUMMARY | 2024-05-12 16:43 | XMS_ITS | Encounter Summary ---
[place] [address] Care Team Providers Care Supervisor Assembling Name Role Phone Naveed Mckinney MD Primary Care Provider [phone] Encounter Details Date Type Department Care Team (Late st Contact Info) Description 02/06/2019 External Results [facility] [place] [id number] Social History Tobacco Use Types Packs/Day Years [...] Procedure Name Priority Date/Time Associated Diagnosis Comments ECG SCAN Routine 02/06/2019 ECG SCAN Routine 02/06/2019 documented in this encounter Results * Scan Doc: ECG (02/06/2019) Historical Provider MEDIA MGR SCAN EX T ORDR/RSLT * Scan Doc: ECG (02/06/2019) Historical Provider MEDIA MGR SCAN EX T ORDR/RSLT documented in this encounter Visit Diagnoses Not on filedocumented in this encounter Care Teams Supervisor Assembling Relationship Specialty Start Date End Date Naveed Mckinney MD PCP - General General Internal Medicine 12/23/18 documented as of this encounter
--- OUTSIDE RECORDS SUMMARY | 2024-05-12 16:43 | XMS_ITS | Encounter Summary ---
[place] [address] Care Team Providers Care Mix Crusher Operator Name Role Phone Naveed Mckinney MD Primary Care Provider [phone] Reason for Referral * Diagnostic Test (Routine) - Closed Specialty Diagnoses / Procedures Referred By Contac t Referred To Contact Radiology Diagnoses Bone lesion Hypercalcemia Procedures CT Guided Biopsy Bone(Extremities/Pelvis) Camilla Beatty MD [address] [place] [address] [facility] [place] [address] Referral ID Status Reason Start Date Expiration Date V isits Requested Visits Authorized [id number] Closed Specialty Service Requested 12/31/2018 12/31/2019 1 1 Reason for Visit * Diagnostic Test (Routine) - Closed Specialty Diagnoses / Procedures Referred By Contac t Referred To Contact Radiology Diagnoses Bone lesion Hypercalcemia Procedures CT Guided Biopsy Bone(Extremities/Pelvis) Camilla Beatty MD [address] [place] [address] [facility] [place] [address] Referral ID Status Reason Start Date Expiration Date V isits Requested Visits Authorized [id number] Closed Specialty Service Requested 12/31/2018 12/31/2019 1 1 Encounter Details Date Type Department Care Team (Latest Contact Info) Description 01/01/2019 8:18 AM EDT - 01/01/2019 11:59 PM EDT Hospital Encounter CT Scan at [facility] [place] [address] Camilla Beatty MD [address] [place] [address] Pre-op testing; Bone lesion; Hypercalcemia Discharge Disposition: Home Social History Tobacco Use Types Packs/Day Years Used Date Smoking Tobacco: Never Assessed Sex and Gender Information Value Date Recorded Sex Assigned at Female 11/05/2020 8:19 AM EST Gender Identity Not on file Sexual Orientation Straight 11/05/2020 8: 19 AM EST documented as of this encounter Last Filed Vital Signs Vital Sign Reading Time Taken Comments Blood Pressure 146/71 01/01/2019 11:45 AM EDT Pulse 66 01/01/2019 10:30 AM EDT Temperature 35.9 ??C (96.6 ??F) 01/01/2019 10:45 AM E DT Respiratory Rate 16 01/01/2019 11:45 AM EDT Oxygen Saturation 96% 01/01/2019 11:45 AM EDT Inhaled Oxygen Concentration - - Weight - - Height - - Body Mass Index - - documented in this encounter Discharge Instructions * Discharge Instructions* Cecelia Mcghee RN - 01/01/2019 9:59 AM EDT [facility] Vascular and Interventional Radiology Biopsy Discharge Instructions [...] be reported to you by your primary lawn care specialist or the clinician who ordered the biopsy. [...] is during regular office hours, please call [phone]. If it is after regular office hours, or on weekends or holidays, please call [phone] and ask to speak to the Ict Quality Assurance Engineer production operations manager for Interventional Radiology. You have received medication [...] as of this encounter Progress Notes * Cecelia Mcghee RN - 01/01/2019 9:56 AM EDT To procedure room CT1 via stretcher. Onto table Prone. All monitors, O2, safety strap in place. Med's per protocol. Needle out 1032 * Cecelia Mcghee RN - 12/31/2018 1:59 PM EDT [facility] Name: JEN GUEVARA Date of : 1955 AGE: 63 y.o. Address: [place] [address] (home) Mobile: No relevant phone numbers on file. Referring Provider: Camilla Beatty REASON FOR VISIT: Order Questions Answers Where will study be performed? [facility] [120] Laterality Bilateral Is the patient on anticoagulant / anitplatelet therapy ? Other: see comments field Does the patient have any pertinent outside imaging? Yes Reason for exam and clinical history: Biopsy of bone lesions. R/O multiple myeloma VS. metastatic disease. Hypercalcemia + ENA. Other pertinent information: Outside order- in scanned docs Medications to discontinue for procedure: none Prophylactic antibiotic: none Planned access site / position: prone positon posterior approach right posterior iliac crest ?? Sedation:moderate No Known Allergies Pertinent PMH: There is no problem list on file for this patient. Pertinent PSH: No past surgical history on file. Date/Procedure Meds given/comments 01/01/19: CT Guided R Iliac bone bx Fentanyl 175mcg, Versed 2.5mg - tolerated very well Laboratory Results: PLT 146 on 12/28/18-scanned doc on MD workup Medications: Prior to Admission medications Not on File documented in this encounter H&P Notes * Teresa Rolon MD - 01/01/2019 9:30 AM EDT Interventional Radiology - Pre-Procedure Note Problem List: There are no hospital problems to display for this patient. Active Non-Hospital Problems Diagnosis ??? Cardiomyopathy, dilated ??? ARF (acute renal failure) ??? Hypercalcemia ??? Nodule of left lung ??? Bone lesion ID: 63 y.o. Female PCP: Naveed Mckinney MD History of Present Illness: Diffusely abnormal appearance of the bones on 12/24/18 CT Past Medical and Surgical History: HTN, HLD, dilated cardiomyopathy, s/p appendectomy, s/p oophorectomy Past Medical History: Diagnosis Date ??? ARF (acute renal failure) 12/31/2018 ??? Bone lesion 12/31/2018 ??? 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 Hypercalcemia 12/31/2018 ??? Nodule of left lung 12/31/2018 Past Surgical History: Procedure Laterality Date ??? APPENDECTOMY ??? LAPAROSCOPY 1980 ??? OVARY REMOVAL Left [...] file Gets together: Not on file Attends mu-ism service: Not on file Active member of [...] value Range last 24 hrs Temperature Temp: 37 ??C (98.6 ??F) Temp: [37 ??C (98.6 ??F)] Heart Rate Heart Rate: 70 Heart Rate: [70] Blood Pressure BP: 136/67 BP: (136)/(67) Respiratory Rate Resp: 16 Resp: [16] SpO2 SpO2: 99 % SpO2: [99 %] Physical Exam: Heart:RRR Lungs:CTAB Laboratory (Last 24 Hours): platelet count today is 255 Radiology: 12/24/18 CT images reviewed showing diffusely increased bone density with scattered lucentfoci in the bones, including in the right posterior iliac crest ASA Classification ___ Class 1 Healthy patient, [...] none Planned access site / position: prone position, access site at posterior aspect of right iliac crest A copy of this document will be sent to the patient's Primary Care Physician and/or Referring Physician. Teresa Rolon MD 01/01/2019 Source Note - Christopher Bennett MD - [...] file Gets together: Not on file Attends mu-ism service: Not on file Active member of [...] Procedure Name Priority Date/Time Associated Diagnosis Comments SPECIMEN TO PATHOLOGY Routine 01/01/2019 2:[address] GUIDED BIOPSY BONE(EXTREMITIES/PE LVIS) Routine 01/01/2019 10:44 AM EDT Bone lesion Hypercalcemia documented in this encounter Results * Specimen to Pathology (01/01/2019 2:53 PM EDT) AP Specimen 01/01/2019 2:53 PM EDT 01/01/2019 2:53 PM EDT Narrative [facility] - 01/01/2019 2:53 PM EDT Specimen requisition ordered. ??Separate Pathology report to follow Camilla Beatty MD PATHOLOGY/CYTOLOGY O RDERABLES Performing Organization Address City/State/[facility] Co de Phone Number [facility] [place] [address] * CT Guided Biopsy Bone(Extremities/Pelvis) (01/01/2019 10:44 AM EDT) Anatomical Region Laterality Modality Computed Tomogra phy Narrative 01/01/2019 11:18 AM EDT PROCEDURE: CT GUIDED right iliac bone bone biopsy OPERATORS: Teresa ROLON M.D. INFORMED CONSENT: Informed consent was obtained and all of the patient's questions were answered prior to the start of the procedure. MODERATE SEDATION: Was provided by the Special Procedures nurse using 2.5 mg of Versed and 175 mcg of Fentanyl intravenously. Continuous vital sign monitoring was performed. DESCRIPTION: After informed consent was obtained, a pre-procedural time-out was performed as per [facility] protocol. The patient was placed in the CT Suite in the prone position. The patient's electronic medical record including allergies was reviewed prior to the procedure. An area of heterogeneous bone within the posterior aspect of the right iliac bone was localized on axial CT images. The needle entry site was marked under CT guidance. The skin was prepped and draped in the usual sterile fashion. 1% buffered Lidocaine was used for local anesthesia. Maximum sterile barrier technique was utilized. The 10-cm 13G Arrow On-Control bone biopsy needle with the 6-cm 11G introducer was employed. The introducer was advanced under imaging guidance, and the cortical drill was used to drill through the cortex. Next, the bone biopsy needle was subsequently advanced coaxially. The tip of the biopsy needle was recorded and 3 core specimens, each measuring between 1 and 2 cm in length, were obtained. All needles were removed and hemostasis obtained by manual compression. The samples were prepared in formalin for surgical pathology analysis. COMPLICATIONS: None. There were no immediate postprocedure complications. The patient left the CT Suite to the ambulatory Recovery Room in stable condition. MEDICATIONS: 2.5 mg of Versed and 175 mcg of Fentanyl intravenously Resident/Fellow: None Attending: Teresa ROLON M.D. I performed this procedure. I was present for the entire intraservice time documented by the interventional radiology nurse. Thank you for letting us participate in the care of this patient. For questions regarding this report, please contact the number below. ? Procedure Note Teresa Rolon MD - 01/01/2019 PROCEDURE: CT GUIDED right iliac bone bone biopsy OPERATORS: Teresa ROLON M.D. INFORMED CONSENT: Informed consent was obtained and all of the patient's questions were answered prior to the start of the procedure. MODERATE SEDATION: Was provided by the Special Procedures nurse using 2.5 mg of Versed oti854 mcg of Fentanyl intravenously. Continuous vital sign monitoring wasperformed. DESCRIPTION: After informed consent was obtained, a pre-procedural time-out wasperformed as per [facility] protocol. The patient was placed in the CT Suite in the proneposition. The patient's electronic medical record including allergies was reviewedprior to the procedure. An area of heterogeneous bone within the posterior aspect of the rightiliac bone was localized on axial CT images. The needle entry site was markedunder CT guidance. The skin was prepped and draped in the usual sterile fashion.1% buffered Lidocaine was used for local anesthesia. Maximum sterilebarrier technique was utilized. The 10-cm 13G Arrow On-Control bone biopsy needle with the 6-cm 11Gintroducer was employed. The introducer was advanced under imaging guidance, andthe cortical drill was used to drill through the cortex. Next, the bonebiopsy needle was subsequently advanced coaxially. The tip of the biopsy needlewas recorded and 3 core specimens, each measuring between 1 and 2 cm inlength, were obtained. All needles were removed and hemostasis obtained by manual compression. The samples were prepared in formalin for surgicalpathology analysis. COMPLICATIONS: None. There were no immediate postprocedure complications. The patientleft the CT Suite to the ambulatory Recovery Room in stable condition. MEDICATIONS: 2.5 mg of Versed and 175 mcg of Fentanyl intravenously Resident/Fellow: None Attending: Teresa Vora I performed this procedure. I was present for the entire intraservicetime documented by the interventional radiology nurse. Thank you for letting us participate in the care of this patient. Forquestions regarding this report, please contact the number below. Electronically signed by: Teresa Rolon [facility] ([phone]),at 01/01/2019 11:18 AM Camilla Beatty MD G CT ORDERABLES * Platelet count (01/01/2019 8:05 AM EDT) Platelet 255 145 - 357 x10(3)/mc L [facility] Immature Plt % 2.7 0.0 - 7.4 % [facility] Comment: Limitation of the Immature Platelet Fraction (IPF)-May be less reliable when the platelet count is less than 33q266/uL due to statistical imprecision. The IPF value [...] in a decreased state of production. References: [employer] The Clinical Value of the Immature Platelet Fraction (IPF) in Cell Recovery Document Number 10-1143 02/2011 [employer] The Role of the Immature Platelet Fraction (IPF) in the Differential Diagnosis of Thrombocytopenia, Document [id number] V05 P05 Blood specimen (specimen) 01/01/2019 8:05 AM EDT 01/01/2019 8:11 AM EDT Narrative Resulting Agency Comment Spec In Lab Camilla Beatty MD HEMATOLOGY ORDERABLE S [facility] [place] [address] documented in this encounter Visit Diagnoses Diagnosis Pre-op testing Preoperative examination, unspecified Bone lesion Disorder of bone and cartilage, unspecified Hypercalcemia documented in this encounter Administered Medications Inactive Administered Medications - up to 3 most recent administrations Medication Order MAR Action Action Date Dose Rate Site fentaNYL 50 mcg/mL multi-dose injection 25-50 mcg, Intravenous, EVERY 5 MIN PRN, Starting on Sun01/01/19 at 0940, Until Sun01/01/19 at 1032, Pain, per unit protocol, - Start dose [...] and verbal order., Angio/IR (Intra-Procedure), Routine Given 01/01/2019 10:27 AM EDT 25 mcg Given 01/01/2019 10:19 AM EDT 50 mcg Given 01/01/2019 10:11 AM EDT 50 mcg lidocaine (XYLOCAINE) 10 mg/mL (1 %) injection 10 mg 10 mg, Subcutaneous, ONCE, 1 dose, On Sun01/01/19 at 1000, For use in Interventional Radiology (IR) only for procedure with direct provider supervision and verbal order., Angio/IR (Intra-Procedure), Routine Given 01/01/2019 10:00 AM EDT 10 mg midazolam (PF) (VERSED) multi-dose injection 0.5-1 mg 0.5-1 mg, Intravenous, EVERY 3 MIN PRN, Starting on Sun01/01/19 at 0940, Until Sun01/01/19 at 1032, Sleep, - Start dose; 1 mg (Reduce [...] and verbal order., Angio/IR (Intra-Procedure), Routine Given 01/01/2019 10:27 AM EDT 0.5 mg Given 01/01/2019 10:17 AM EDT 0.5 mg Given 01/01/2019 10:11 AM EDT 0.5 mg sodium chloride 0.9 % flush 5 mL 5 mL, Intravenous, EVERY 12 HOURS, First dose on Sun01/01/19 at 1000, Until Discontinued, Day of Surgery (Day of Procedure), Routine Given 01/01/2019 10:00 AM EDT 5 mLs documented in this encounter Care Teams Mix Crusher Operator Relationship Specialty Start Date End Date Naveed Mckinney MD PCP - General General Internal Medicine 12/23/18 documented as of this encounter
--- OUTSIDE RECORDS SUMMARY | 2024-05-12 16:43 | XMS_ITS | Encounter Summary ---
Author Organization [facility] Address [address] [place] [address] Care Team Providers Care Cctv Technician Name Role Phone Sammie Cordero MD Primary Care Provider [phone] Encounter Details Date Type Department Care Team (Late st Contact Info) Description 12/03/2023 Lab Requisition [facility] [place] Pathology & Laboratory Medicine - [address] [id number] Outr Resulting Lab, Provider Social History Tobacco [...] INCLUDES QUANTITATION OF MONOCLONAL SPIKE PERFORMABLE Today 12/03/2023 9:15 EDT SPEP, INCLUDES QUANTITATION OF MONOCLONAL SPIKE Routine 12/03/2023 9:15 EDT PROTEIN, TOTAL Today 12/03/2023 9:15 EDT documented in this encounter Results * SPEP, INCLUDES QUANTITATION OF MONOCLONAL SPIKE PERFORMABLE (12/03/2023 9:15 EDT) Albumin % 59.1 55.8 - 66.1 % 12/04/2023 15:56 EDT [facility] Albumin g/dL 4.4 3.6 - 5.2 g/dL 12/04/2023 15:56 [facility] Alpha-1 % 3.9 2.9 - 4.9 % 12/04/2023 15:56 [facility] Alpha-1 g/dL 0.30 0.15 - 0.40 g/dL 12/04/2023 15:56 [facility] Alpha-2 % 8.7 7.1 - 11.8 % 12/04/2023 15:56 [facility] Alpha-2 g/dL 0.60 0.50 - 1.00 g/dL 12/04/2023 15:56 [facility] Beta % 11.9 8.4 - 13.1 % 12/04/2023 15:56 [facility] Beta g/dL 0.90 0.60 - 1.20 g/dL 12/04/2023 15:56 [facility] Gamma % 16.4 11.1 - 18.8 % 12/04/2023 15:56 [facility] Gamma g/dL 1.20 0.60 - 1.60 g/dL 12/04/2023 15:56 [facility] SPEP Comment No apparent monoclonal protein seen on serum electrophoresis 12/04/2023 15:56 [facility] Comment:See scanned/suppleme ntary report. Total Protein 7.4 6.3 - 8.2 g/dL 12/04/2023 15:56 [facility] Blood VENOUS BLOOD / Unknown 12/03/2023 9:15 EDT 12/03/2023 16:50 EDT Provider Outr Resulting Lab CHEMISTRY & BLOOD GAS ORDERABLES [facility] [address] [place], [place] [id number] * PROTEIN, TOTAL (12/03/2023 9:15 EDT) Blood VENOUS BLOOD / Unknown 12/03/2023 9:15 EDT 12/03/2023 16:50 EDT Provider Outr Resulting Lab CHEMISTRY & BLOOD GAS ORDERABLES [facility] [address] [place] [address] documented in this encounter Visit Diagnoses Not on filedocumented in this encounter Care Teams Cctv Technician Relationship Specialty Start Date End Date Sammie Cordero MD [address] [place] [phone] PCP - General 09/01/20 documented as of this encounter
--- OUTSIDE RECORDS SUMMARY | 2024-05-12 16:43 | XMS_ITS | Encounter Summary ---
Author Organization [facility] Address [address] [place] [address] Care Team Providers Care Educational Adviser Name Role Phone Sammie Cordero MD Primary Care Provider [phone] Encounter Details Date Type Department Care Team (Late st Contact Info) Description 10/05/2021 Lab Requisition [facility] Pathology & Laboratory Medicine - [address] [address] Thien Degroot MD [address] [place] [address] [address] [place], [place] [id number] Encounter for other general examination Social History Tobacco Use Types Packs/Day Years Used Date Smoking Tobacco: Never Assessed Sex and Gender Information Value Date Recorded Sex Assigned at Not on file Gender Identity Not on file Sexual Orientation Not on file documented as of this encounter Plan of Treatment Not on file documented as of this encounter Procedures Procedure Name Priority Date/Time Associated Diagnosis Comments SURGICAL PATHOLOGY Today 10/05/2021 10 :00 EST Encounter for other general examination documented in this encounter Results * SURGICAL PATHOLOGY (10/05/2021 10:00 EST) Note to Patient The following pathology results have been interpreted by your pathologist and may be available to you before your health provider has had the opportunity to review them. Please allow time for your provider to receive these results and explore management options, if applicable. 10/06/2021 13:19 EST [facility] Final Diagnosis A. COLON, ASCENDING, POLYPS X2, BIOPSY: - Tubular adenomas. B. COLON, TRANSVERSE, POLYP, BIOPSY: - Tubular adenoma. C. RECTUM, POLYP, BIOPSY: - Hyperplastic polyp. 10/06/2021 13:19 [facility] Attestation By the signature below, the attending physician certifies that they have 1) personally conducted a gross and/or microscopic examination of the described specimen(s), and/or personally interpreted the results of laboratory testing of the described specimen(s), and 2) personally rendered or confirmed the above diagnosis. 10/06/2021 13:19 [facility] at 1319 Clinical History Hx polyps 10/06/2021 13:19 [facility] Gross Description A. Received in formalin labelled with proper patient identification (initials C, B) and ascending colon polyp x2 are 4 fragments of graff soft tissue (ranging from 0.2 cm to 0.5 cm in greatest dimension). The specimen is entirely submitted in A1. B. Received in formalin labelled with proper patient identification (initials C, B) and transverse colon polyp are 2 fragments of pink-graff soft tissue (0.3 x 0.2 x 0.2 cm and 0.6 x 0.3 x 0.2 cm). The specimen is entirely submitted in B1. C. Received in formalin labelled with proper patient identification (initials C, B) and rectal polyp is a single fragment of graff soft tissue (0.2 x 0.2 x 0.2 cm). The specimen is entirely submitted in C1. BENNETT RAJPUT(ASCP) 10/05/2021 16:23 10/06/2021 13:19 [facility] Performing Lab [facility] 10/06/2021 13:19 [facility] Scanned Images 10/06/2021 13:19 [facility] Tissue SPECIMEN FROM RECTUM / Unknown 10/05/2021 10:00 EST 10/05/2021 16:09 EST Tissue specimen (specimen) TRANSVERSE COLON STRUCTURE / Unknown 10/05/2021 10:00 EST 10/05/2021 16:09 EST Tissue specimen (specimen) SPECIMEN FROM RECTUM / Unknown 10/05/2021 10:00 EST 10/05/2021 16:09 EST Thien Degroot MD PATHOLOGY ORDERMickey ARREDONDO [facility] [address] [place] [address] documented in this encounter Visit Diagnoses Diagnosis Encounter for other general examination documented in this encounter Care Teams Educational Adviser Relationship Specialty Start Date End Date Sammie Cordero MD [address] [place] [phone] PCP - General 09/01/20 documented as of this encounter
--- OUTSIDE RECORDS SUMMARY | 2024-05-12 16:43 | XMS_ITS | Encounter Summary ---
Author Organization [facility] [place] [address] Care Team Providers Care Integration Aide Name Role Phone Naveed Mckinney MD Primary Care Provider [phone] Reason for Visit * Consultation (Urgent) - Closed Specialty Diagnoses / Procedures Referred By Annie torres Referred To Contact Nephrology Diagnoses ABN LABS RENAL FAILURE Procedures RENAL U/S PENDING Naveed Mckinney MD [address] [facility] [place] [address] [facility] [address] [place] [id number] Referral ID Status Reason Start Date Expiration Date V isits Requested Visits Authorized [id number] Closed Consult, Test & Treat Connection Center 12/23/2018 12/23/2019 1 1 Encounter Details Date Type Department Care Team (Latest Contact Info) Description 01/24/2019 9:30 AM EDT Office Visit [place] [address] Tiffany Pérez MD [facility] [place] [place] [address] ENA (acute kidney injury) Social History Tobacco [...] Sign Reading Time Taken Comments Blood Pressure 139/71 01/24/2019 9:15 AM EDT Pulse 84 01/24/2019 9:15 AM EDT Temperature - - Respiratory Rate - - Oxygen Saturation - - Inhaled Oxygen Concentration - - Weight 81.2 kg (179 lb) 01/24/2019 9:15 AM EDT Height 172.7 cm (5' 8) 01/24/2019 9:15 AM EDT Body Mass Index 27.22 01/24/2019 9:15 AM EDT documented in this encounter Progress Notes * Tiffany Pérez MD - 01/24/2019 9:30 AM EDT Renal and Hypertension New Patient Visit 01/24/2019 History of Presenting Complaint including relevant review of systems This is a new patient visit to the Renal and Hypertension clinic for this 63 y.o. year old female referred by Naveed Mckinney MD for evaluation of acute kidney injury. The referring documents were reviewed. Additional data were obtained from the [facility] records (eDH andCIS) and the referring physician's office. 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 On admission by report serum calcium was 15 mg/dL and creatinine 5.5 mg/dL. She was treated with Zometa, hydration and Lasix. Discharge calcium 11.4 mg/dL creatinine 3.3mg/dL. Bone marrow biopsy was performed earlier this week. Results are pending. Patient denies current uremic symptoms including anorexia, nausea, vomiting, pruritus. She endorsesthirst and is drinking sufficient water to maintain a dilute urine. She denies lower urinary tract symptoms. She denies chest pain, peripheral edema, orthopnea, paroxysmal nocturnal dyspnea. Past medical history is positive for hypertension diagnosed over the past year well-controlled on metoprolol There is a history of dilated cardiomyopathy withcongestive cardiac failure controlled with metoprolol And diuretics There is no previous history of diabetes, hypertension, identified primary renal disease, nephrolithiasis, urinary tract infection, gout, collagen vascular disease Additional Past Medical History Patient Active Problem List Diagnosis Code ??? 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 ARF (acute renal failure) N17.9 ??? Hypercalcemia E83.52 ??? Nodule of left lung R91.1 ??? 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 None scheduled Diet/nutrition renal diet limiting sodium, potassium, calcium - Other Medications Current Outpatient Medications Medication Sig Dispense Refill ??? multivitamin (THERAGRAN) Tablet Take 1 tablet [...] mouth once. 0 No current facility-administered medications for this visit. No NSAIDs. No OTCs or supplements Review of Systems Complete review of systems is negative apart from relevant positives and negatives listed above On examination This is a well- appearing 63 y.o. female in no acute distress Blood pressure 139/71, pulse 84, height 172.7 cm (5' 8), weight 81.2 kg (179 lb). Body mass index is 27.22 kg/m??. There is no uremic fetor and no asterixis The head is normal There is no conjunctival pallor. External ocular movements are unremarkable. Pupils are equal and reactive to light The hands and nails are unremarkable The oropharynx appears normal. Dentition is fair There is no jugular venous distention There is no peripheral edema and no sacral edema The heart sounds are S1 + S2 with no rubs, murmurs or gallops The Breath sounds are vesicular throughout with no added sounds The thoracic and lumbar spine is non tender to percussion along its length The abdomen is soft and nontender. There is no costovertebral angle tenderness. No masses or organsare palpated The carotid, brachial, femoral popliteal, dorsalis pedis and posterior tibial pulses are present and equal without bruits. There are no abdominal bruits Gait is normal. Facies symmetrical. MATT, Mentation and speech are normal Labs: Reviewed outside laboratory values and data available in eDH. Notable for as above Results for JEN GUEVARA ( ) as of 01/27/2019 09:11 Ref. Range 01/24/2019 09:30 01/24/2019 10:25 Sodium Latest Ref Range: 135 - 145 mmol/L 139 Potassium Latest Ref Range: 3.5 - 5.0 mmol/L 4.2 Chloride Latest Ref Range: 98 - 107 mmol/L 102 CO2 Latest Ref Range: 22 - 31 Not Perf Anion Gap Latest Ref Range: 5 - 15 mmol/L Not Calculated BUN Latest Ref Range: 8 - 18 mg/dL 38 (H) Creatinine Latest Ref Range: 0.70 - 1.20 mg/dL 2.97 (H) eGFR Latest Ref Range: >=60 mL/min/1.73 m?? 16 (L) eGFR Latest Ref Range: >=60 mL/min/1.73 m?? 18 (L) Glucose Lvl Latest Ref Range: 65 - 199 mg/dL 84 Calcium Latest Ref Range: 8.5 - 10.5 mg/dL 12.9 (H) Phosphorus Latest Ref Range: 2.5 - 4.5 mg/dL 4.1 Uric Acid Latest Ref Range: 2.5 - 6.5 mg/dL 8.7 (H) Albumin Latest Ref Range: 3.2 - 5.2 gm/dL 3.9 Results for JEN GUEVARA ( ) as of 01/27/2019 09:11 Ref. Range 01/24/2019 09:30 01/24/2019 09:30 Alb/Cr Ratio, Random Latest Ref Range: 0 - 29 mcg/mg Cr 48 (H) Prot/Cre Ratio Latest Units: ratio 0.4 U Albumin Conc, Random Latest Units: mg/L 28.6 U Protein Ran Latest Ref Range: 0 - 12 mg/dL 24 (H) U Creatinine Latest Units: mg/dL 59 59 Radiology studies: Reports: CT chest December 2018 there is a lesion in the left midlung suspicious for malignancy. Reports of renal imaging did not mention any abnormality. No renal imaging Urinalysis and microscopy: Renal clinic laboratory Urine dipstick: negative for blood, trace protein, leucocytes Urine microscopy: Low and High power chan Negative for cells,casts, crystals Assessment and Recommendations 1. Acute kidney injury secondary to severe hypercalcemia likely secondary to metastatic malignancy,pulmonary primary probable. Likely baseline normal renal function results of bone marrow biopsy earlier this week bone marrow biopsy was performed earlier this week. 2. Hypertension well controlled 3. Recommend continue current management. Further management will be dictated by the results of bone marrow biopsy 4. 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 Recommend ?? Prednisone 60 mg daily po for acute management of sarcoidosis ?? Monitor serum calcium and creatinine weekly ?? Refer Rheumatology ?? Refer pulmonology for assessment of lung nodule - cannot be assumed to be secondary to sarcoidosis documented in this encounter Miscellaneous Notes * Addendum Note - Shannan Mayberry CMA - 01/24/2019 9:30 AM EDTAddended by: SHANNAN MAYBERRY on: 01/24/2019 11:48 AM Modules accepted: Orders documented in this encounter Plan of Treatment Not on file documented as of this encounter Procedures Procedure Name Priority Date/Time Associated Diagnosis Comments PTH Routine 01/24/2019 10:25 AM EDT ENA (acute kidney injury) HEMOGRAM Routine 01/24/2019 10:25 AM EDT ENA (acute kidney injury) DIFFERENTIAL, AUTOMATED Routine 01/24/2019 10:25 AM EDT ENA (acute kidney injury) CBC (WITH DIFF) Routine 01/24/2019 10:25 AM EDT ENA (acute kidney injury) URIC ACID Routine 01/24/2019 10:25 AM EDT ENA (acute kidney injury) PHOSPHORUS Routine 01/24/2019 10:25 AM EDT ENA (acute kidney injury) ALBUMIN LEVEL Routine 01/24/2019 10:25 AM EDT ENA (acute kidney injury) BASIC METABOLIC PANEL Routine 01/24/2019 10:25 AM EDT ENA (acute kidney injury) PROTEIN/CREATININE RATIO, URINE Routine 01/24/2019 9:30 AM EDT ENA (acute kidney injury) U ALBUMIN/CRE RATIO Routine 01/24/2019 9 :30 AM EDT ENA (acute kidney injury) documented in this encounter Results * (ABNORMAL) Differential, Automated (01/24/2019 10:25 AM EDT) Neutrophil % 67.9 % [facility] Neutrophil Absolute 3.54 1.70 - 6.10 x10(3)/mc L [facility] Lymph % 13.0 % [facility] Lymphocytes Abs 0.7(L) 0.9 - 3.2 x10(3)/mc L [facility] Monocyte % 13.4 % [facility] Monocyte Abs 0.7 0.3 - 0.9 x10(3)/mc L [facility] Eos % 4.2 % [facility] Eosinophils Abs 0.2 0.0 - 0.4 x10(3)/mc L [facility] Basophil % 1.3 % [facility] Baso Absolute 0.1 0.0 - 0.1 x10(3)/mc L [facility] Immature Gran % 0.20 % [facility] Comment: Immature granulocytes(IG's)percentage and absolute count will include metamyelocytes, myelocytes, and promyelocytes. Blood smears from CBCs yielding IG's will be scanned manually for concordance. If this scan disagrees with the automated IG or if promyelocytes are noted, a manual differential will be performed. Immature Gran Absolute 0.01 0.00 - 0.04 x10(3)/mc L [facility] Blood specimen (specimen) 01/24/2019 10:25 AM EDT 01/24/2019 10:44 AM EDT Narrative Resulting Agency Comment Spec In Lab Tiffany Pérez MD HEMATOLOGY ORDERABLE S [facility] [place] [address] * (ABNORMAL) Hemogram (01/24/2019 10:25 AM EDT) White Blood Cell 5.2 4.0 - 9.5 x10(3)/[facility] Red Blood Cell 3.60(L) 4.00 - 5.21 x10(6)/[facility] Hemoglobin 10.2(L) 11.7 - 15.5 gm/dL [facility] Hematocrit 31.8(L) 35.7 - 45.8 % [facility] Mean Cell Volume 88.3 82.6 - 94.4 fL [facility] Mean Cell Hemoglobin 28.3 27.1 - 32.0 pg [facility] Mean Cell Hemoglobin Concentration 32.1 31.7 - 35.0 gm/dL [facility] Platelet 189 145 - 357 x10(3)/[facility] RDW Standard Deviation 43.3 37.0 - 46.0 [facility] RDW coefficient of variation 13.2 11.5 - 14.1 % [facility] Mean Platelet Volume 10.9 7.6 - 12.9 fL [facility] NRBC% auto 0.0 % [facility] NRBC Absolute 0.000 0.000 - 0.000 x10(3)/[facility] Blood specimen (specimen) 01/24/2019 10:25 AM EDT 01/24/2019 10:44 AM EDT Narrative Resulting Agency Comment Spec In Lab Tiffany Pérez MD HEMATOLOGY ORDERABLE S Performing Organization Address City/[facility]/ZIP Co de Phone Number [facility] [place] [address] * Phosphorus (01/24/2019 10:25 AM EDT) Phosphorus 4.1 2.5 - 4.5 mg/dL [facility] Blood specimen (specimen) 01/24/2019 10:25 AM EDT 01/24/2019 10:44 AM EDT Narrative Resulting Agency Comment Spec In Lab Tiffany Pérez MD CHEMISTRY ORDERABLES Performing Organization Address [facility] Co de Phone Number [facility] [place] [address] * (ABNORMAL) Uric acid (01/24/2019 10:25 AM EDT) Uric Acid 8.7(H) 2.5 - 6.5 mg/dL [facility] Blood specimen (specimen) 01/24/2019 10:25 AM EDT 01/24/2019 10:44 AM EDT Narrative Resulting Agency Comment Spec In Lab Tiffany Pérez MD CHEMISTRY ORDERABLES Performing Organization Address [facility] Co de Phone Number [facility] [place] [address] * Albumin Level (01/24/2019 10:25 AM EDT) Albumin 3.9 3.2 - 5.2 gm/dL [facility] Blood specimen (specimen) 01/24/2019 10:25 AM EDT 01/24/2019 10:44 AM EDT Narrative Resulting Agency Comment Spec In Lab Tiffany Pérez MD CHEMISTRY ORDERABLES Performing Organization Address City/[facility]/ZIP Co de Phone Number [facility] [place] [address] * (ABNORMAL) PTH (01/24/2019 10:25 AM EDT) Parathyroid Hormone <6(L) 15 - 65 pg/mL [facility] Blood specimen (specimen) 01/24/2019 10:25 AM EDT 01/24/2019 10:44 AM EDT Narrative Resulting Agency Comment Spec In Lab Tiffany Pérez MD CHEMISTRY ORDERABLES [facility] [place] [address] * (ABNORMAL) Basic Metabolic Panel (non-fasting) (01/24/2019 10:25 AM EDT) Glucose 84 65 - 199 mg/dL [facility] Comment:Diabetes: >=200 mg/d L plus symptoms Blood Urea Nitrogen 38(H) 8 - 18 mg/dL [facility] Creatinine 2.97(H) 0.70 - 1.20 mg/dL [facility] Sodium 139 135 - 145 mmol/L [facility] Potassium 4.2 3.5 - 5.0 mmol/L [facility] Comment: Please note: ??Patients with WBC >100,000 may have falsely elevated Potassium levels. ??For accurate Potassium quantification in these patients send serum separator tube (gold top) for subsequent determinations. ??Contact the Clinical Chemistry Laboratory if there are any questions. Chloride 102 98 - 107 mmol/L [facility] Carbon Dioxide Not Perf 22 - 31 [facility] Comment:Sample too old to pe rform test.CO2 when found Anion Gap Not Calculated 5 - 15 mmol/L [facility] Calcium 12.9(H) 8.5 - 10.5 mg/dL [facility] Est Glomerular Filtration Rate 16(L) >=60 mL/min/1 .73 m?? [facility] Comment: The eGFR was calculated using the CKD-EPI equation. As with all creatinine based estimates of kidney function, eGFR values calculated with the CKD-EPI equation are not accurate in patients with acute kidney failure, extremes of body mass or the acutely ill. http://[email or web address] eGFR 18(L) >=60 mL/min/1 .73 m?? [facility] Comment: The eGFR was calculated using the CKD-EPI equation. As with all creatinine based estimates of kidney function, eGFR values calculated with the CKD-EPI equation are not accurate in patients with acute kidney failure, extremes of body mass or the acutely ill. [email or web address]f Blood specimen (specimen) 01/24/2019 10:25 AM EDT 01/25/2019 10:25 AM EDT Narrative Resulting Agency Comment Spec In Lab Tiffany Pérez MD CHEMISTRY ORDERABLES Performing Organization Address [facility] Co de Phone Number [facility] [place] [address] * (ABNORMAL) Protein/Creatinine Ratio, urine (01/24/2019 9:30 AM EDT) Creatinine, Urine 59 mg/dL [facility] Protein, Urine 24(H) 0 - 12 mg/dL [facility] Protein / Creatinine Ratio, Urine 0.4 ratio [facility] Urine specimen (specimen) 01/24/2019 9:30 AM EDT 01/24/2019 11:58 AM EDT Narrative Resulting Agency Comment Spec In Lab Tiffany Pérez MD URINE ORDERABLES Performing Organization Address City/[facility]/ZIP Co de Phone Number [facility] [place] [address] * (ABNORMAL) U Albumin/Cre Ratio (01/24/2019 9:30 AM EDT) Albumin / Creatinin Ratio, Urine 48(H) 0 - 29 mcg/mg Cr [facility] Comment: Reference Ranges: <30 mcg/mg: Normal 30-300 mcg/mg: Moderately increased albuminuria.* >300 mcg/mg: Severely increased albuminuria. * ACEI or ARB recommended if diabetic; suggested if BP>130/80 without diabetes ACEI or ARB strongly recommended if diabetic; recommended if BP>130/80 without diabetes Two of three specimens collected within a 3 to 6 month period should be abnormal before considering a patient to have albuminuria. Transient causes: exercise, fever, infection, CHF, marked hyperglycemia or hypertension. Persistent albuminuria indicates CKD and is an independent risk factor for ASCVD. ADA Standards of Medical Care in Diabetes-2016; KDIGO: Kidney International Supplements (2012) 2, 357? 362 Albumin, Urine 28.6 mg/L [facility] Creatinine, Urine 59 mg/dL [facility] Urine specimen (specimen) 01/24/2019 9:30 AM EDT 01/24/2019 11:58 AM EDT Narrative Resulting Agency Comment Spec In Lab Tiffany Pérez MD URINE ORDERABLES [facility] [place] [id number] documented in this encounter Visit Diagnoses Diagnosis ENA (acute kidney injury) Acute kidney failure, unspecified documented in this encounter Care Teams Integration Aide Relationship Specialty Start Date End Date Naveed Mckinney MD PCP - General General Internal Medicine 12/23/18 documented as of this encounter
--- OUTSIDE RECORDS SUMMARY | 2024-05-12 16:43 | XMS_ITS | Encounter Summary ---
Author Organization [facility] Address [facility] [place] [address] Care Team Providers Care Police Captain Senior Name Role Phone Naveed Mckinney MD Primary Care Provider [phone] Encounter Details Date Type Department Care Team (Late st Contact Info) Description 12/31/2018 Notes [place] [address] Charly Bennett MD [facility] [place] [address] Social History Tobacco Use Types Packs/Day Years Used Date Smoking Tobacco: Never Assessed Sex and Gender Information Value Date Recorded Sex Assigned at Female 11/05/2020 8:19 AM EST Gender Identity Not on file Sexual Orientation Straight 11/05/2020 8: 19 AM EST documented as of this encounter H&P Notes * Charly Bennett MD - 12/31/2018 9:40 AM EDT [...] file Gets together: Not on file Attends jewish service: Not on file Active member of [...] patient's Primary Care Physician and/or Referring Physician. CHARLY BENNETT MD 12/31/2018 documented in this encounter Plan of Treatment Not on file documented as of this encounter Visit Diagnoses Not on filedocumented in this encounter Care Teams Police Captain Senior Relationship Specialty Start Date End Date Naveed Mckinney MD PCP - General General Internal Medicine 12/23/18 documented as of this encounter
--- OUTSIDE RECORDS SUMMARY | 2024-05-12 16:43 | XMS_ITS | Encounter Summary ---
Author Organization [facility] [place] [address] Care Team Providers Care Quality Assurance Group Leader Name Role Phone Naveed Mckinney MD Primary Care Provider [phone] Encounter Details Date Type Department Care Team (Late st Contact Info) Description 12/24/2018 Ancillary Procedure [place] [address] Ora Gautam MD [facility] DR [place]AGNOSTIC [place] [address] Social History Tobacco Use Types Packs/Day Years [...] Associated Diagnosis Comments FILM LIBRARY STORAGE ONLY CT CHEST ABDOMEN PELVIS Routine 12/24/2018 12:00 AM EDT documented in this encounter Results * Film Library- Storage Only CT Chest Abdomen Pelvis (12/24/2018 12:00 AM EDT) Narrative [facility] - 12/30/2018 5:45 PM EDT This exam is auto-finalizing. It's purpose is for storage only. Ora Gautam MD IM FILM LIBRARY ORD ERABLES [place], [place] documented in this encounter Visit Diagnoses Not on filedocumented in this encounter Care Teams Quality Assurance Group Leader Relationship Specialty Start Date End Date Naveed Mckinney MD PCP - General General Internal Medicine 12/23/18 documented as of this encounter
== END 2024-05-12 16:40 | disposition home or self-care (01) ==
LOC: LBO 16:39
PROVIDERS: PCP Family Medicine; Visit Provider Physician Assistant Surgical
DX: D86.9 Sarcoidosis, unspecified (principal)
CPT/HCPCS: 36415; 80053; 99214; 85025

== ENCOUNTER 2024-05-13 03:06 | Outpatient (CLI) | payer MEDICARE, SELFPAY ==
--- NOTE | 2024-05-13 15:35 | W.PFT ---
Date of service: 05/13/24 Time of Service: 10:00 Pulmonary Function Test Result Requesting Provider Pavithra Ortiz Indications: Sarcoidosis Impression Spirometry shows normal FEV1/FVC 77%. Normal FEV1 at 94%. No reversibility after bronchodilator. Normal lung volumes with no air trapping. Normal diffusion. Normal flow volume loop. Clinical Correlation therefore is recommended.
== END 2024-05-13 03:07 | disposition home or self-care (01) ==
LOC: RT 03:06
PROVIDERS: PCP Family Medicine; Visit Provider Physician Assistant Surgical
DX: D86.9 Sarcoidosis, unspecified (principal)
CPT/HCPCS: 00123; 94060; 94726; 94729

== ENCOUNTER 2024-05-15 01:35 | Outpatient (CLI) | payer MEDICARE, SELFPAY ==
--- NOTE | 2024-05-15 | DI.US_ITS ---
APPROVED REPORT EXAM: Comprehensive 2D, Doppler, and color-flow Echocardiogram Patient Location: Out-Patient Machine Operator Farmworker: Rajani Salas RDCS (AE) Indications: Heart failure with reduced ejection fraction Other Information Study Quality: Adequate Conclusion Mildly dilated left ventricle. Ejection fraction is 42%. There is global hypokinesis. Wall thickne ss is normal Normal right ventricular size and function Both atria are normal in size Trileaflet aortic valve without stenosis or regurgitation Mild mitral annular calcification mildly thickened mitral leaflets mild mitral regurgitation Wall motion Left Ventricle Left ventricle is mildly dilated. Left ventricular systolic function is moderately decreased. There i s normal left ventricular wall thickness. There is global hypokinesis of the left ventricle. There is no ventricular septal defect visualized. LVEF is 42%. Right Ventricle Right ventricle is grossly normal in size. Right ventricular systolic function is grossly normal. Atria The left atrium size is normal. The right atrium size is normal. The interatrial septum is intact wit h no evidence for an atrial septal defect. Aortic Valve Aortic valve is trileaflet. There is no aortic valvular stenosis. No aortic regurgitation is present . Mitral Valve Mild mitral annular calcification. The mitral valve is mildly thickened but opens. No evidence of jl ral valve stenosis. Mild mitral regurgitation. Tricuspid Valve The tricuspid valve is normal in structure. There is no tricuspid valve stenosis. Trace tricuspid reg urgitation. Unable to assess PA pressure. Pulmonic Valve The pulmonary valve is normal in structure. There is no pulmonic valvular stenosis. Trace pulmonic re gurgitation. Great Vessels The aortic root is normal in size. The ascending aorta is normal Aortic arch is normal in caliber. IV C is normal in size and collapses >50% with inspiration. Pericardium There is no pericardial effusion. 2D Dimensions IVSD d PLAX 0.82 cm F: 0.6-1.0 Ao Root d 3.07 cm F: 2.7 - 3.3 LVPW d PLAX 0.85 cm F: 0.6 - 1.0 Ao Asc Diam d 3.22 cm F: 2.3 - 3.1 LVID d PLAX 5.99 cm F: 3.8 - 5.2 LVDs 4.76 cm F: 2.2 - 3.5 LV EF Teichholz 41.2 % FS 20.56 % LV EDV (Teich) 179.5 mL LV ESV (Teich) 105.5 mL M-Mode TAPSE 1.57 cm (M/F) >1.7 Auto EF LV EDV A4C 171.6 mL LV EDV A2C 150.7 mL LV EDV BP 161.0 mL LV ESV A4C 101.6 mL LV ESV A2C 90.5 mL LV ESV BP 96.9 mL LVEF(%) A4C 40.8 % LVEF(%) A2C 39.9 % LVEF(%) BP 39.8 % LV SV A4C 70.0 ml LV SV A2C 60.1 ml LV SV BP 64.2 ml LV CO A4C 4.8 L/min LV CO A2C 3.8 L/min LV CO BP 4.3 L/min HR A4C 68.44 BPM HR A2C 63.95 BPM LV EDV Index (BP) LV Strain Long Pk Overal Avg (s) 12.09 LA Volume LA Length A4C 5.2 cm LA Length A2C 5.3 cm LA Area A4C s 19.87 cm2 LA Area A2C s 18.34 cm2 LA Vol A4C A-L 64.33 mL LA Vol A2C A-L 53.91 mL LA Vol Biplane A-L 59.4 mL LA Vol/BSA A4C A-L LA Vol/BSA A2C A-L LA Vol/BSA BP A-L 31.2 mL/m2 LA Vol A4C MOD 61.7 mL LA Vol A2C MOD 51.9 mL LA Vol BP MOD 57.0 mL RA Volume RA Area A4C 12.1 cm2 RA ESV A4C (A-L) 28.1mL RA Vol/BSA A4C A-L RA Length A4C 4.4 cm RA ESV A4C (MOD) 27.2mL LV Diastology MV E' medial 0.044 (>0.07 m/s) MV E Vmax 0.51 (0.4-1.3 m/s) MV E/E' MED 11.62 (<14) MV A Vmax 0.95 (0.4-1.3 m/s) MV E' lateral 0.053 (>0.1 m/s) E/A Ratio 0.5 MV E/E' LAT 9.64 (<14) MV E' Average 0.048 m/s MV E/E'(average) 10.54 Aortic Valve AoV Vmax 1.31 m/s LVOT Vmax 1.10 m/s AoV Peak Grad 6.8 mmHg LVOT Peak Grad 4.8 mmHg AoV Area (Vmax) 2.71 cm2 LVOT VTI 0.210 m AoV VTI 0.294 m LVOT Mean Grad 2.4 mmHg AoV Mean Sandro. 0.95 m/s LVOT SV 67.83 mL AoV Mean Grad 4.1 mmHg LVOT Diam s 2.00 cm AoV Area (VTI) 2.31 cm2 AV Regurg Peak Gr. 6.84 mmHg Velocity Ratio 0.84 Mitral Valve MV DT 438 (160-240 msec) MV Vmax TIPS 0.98 m/s MV Mean Grad 1.3 (<2mmHg) MV VTI 0.306 m Pulmonary Valve PV Vmax 1.05 (0.5-1.5 m/s) RVOT Vmax 0.58 m/s PV Peak Grad 4.4 mmHg RVOT Peak Gr. 1.4 mmHg PV Mean Sandro 0.66 m/s RVOT VTI 0.140 m PV Mean Grad 2.0 mmHg RVOT Mean Gr. 0.7 mmHg Tricuspid Valve TV S' 0.11 m/s
== END 2024-05-15 01:55 ==
LOC: DI 01:35
PROVIDERS: PCP Family Medicine; Visit Provider Internal Medicine
DX: I50.20 Unspecified systolic (congestive) heart failure (principal)
CPT/HCPCS: 93306

== ENCOUNTER 2024-05-15 09:29 | Outpatient (CLI) | payer MEDICARE, SELFPAY ==
--- NOTE | 2024-05-15 09:30 | RT.EKG_ITS ---
APPROVED REPORT Exam: Resting ECG Reason for Exam: annual Patient Location: O HR:62 bpm ECG Measurements Heart Rate 62 AXIS DE 226 P 39 QRSd 116 QRS -35 QT 445 T 51 QTc 452 Conclusion Sinus rhythm...normal P axis, V-rate 50- 99 Prolonged DE interval...DE >220, V-rate 50- 90 LAFB
== END 2024-05-15 09:30 | disposition home or self-care (01) ==
PROVIDERS: PCP Family Medicine; Visit Provider Physician Assistant Surgical
DX: D86.9 Sarcoidosis, unspecified (principal)
CPT/HCPCS: 93005; 93010

== ENCOUNTER 2024-06-16 02:44 | Outpatient (RCR) | payer MEDICARE, SELFPAY ==
[2024-04-17 00:01] VITALS: BP 112/70; PULSE 57; RESP 18; TEMP 37
[2024-06-16 08:23] VITALS: BP 99/65; PULSE 69; RESP 16; TEMP 36.5; O2SAT 95
[2024-06-16] MEDS: IMMUNE GLOBULIN 40 GM/400 ML BTL IVPB (08:23)
[2024-06-16 08:48] VITALS: BP 99/65; PULSE 72; RESP 17; TEMP 36.6; O2SAT 97
[2024-06-16] MEDS: Normal Saline Flush 10 ML SYR IVP (08:50)
[2024-06-16 10:10] VITALS: BP 101/66; PULSE 64; RESP 16; TEMP 36.4; O2SAT 97
[2024-06-16 10:11] VITALS: BP 103/71; BP 124/78; PULSE 65; PULSE 71; RESP 12; RESP 18; TEMP 36.1; TEMP 36.5; O2SAT 98; O2SAT 99
[2024-06-16 10:25] VITALS: BP 126/74; PULSE 68; RESP 20; TEMP 36.8; O2SAT 99
== END 2024-06-16 23:59 | disposition home or self-care (01) ==
LOC: INF 02:44
PROVIDERS: PCP Family Medicine; Visit Provider Psychiatry & Neurology Neurology
DX: G61.81 Chronic inflammatory demyelinating polyneuritis (principal)
CPT/HCPCS: 96365; 96366; J1459

== ENCOUNTER 2024-06-20 01:17 | Outpatient (RCR) | payer MEDICARE, SELFPAY ==
[2024-06-17 00:01] VITALS: BP 112/70; PULSE 57; RESP 18; TEMP 37
[2024-06-17] MEDS: IMMUNE GLOBULIN 40 GM/400 ML BTL IVPB (07:54)
[2024-06-17 08:00] VITALS: BP 104/69; PULSE 69; RESP 16; TEMP 36.7; O2SAT 97
[2024-06-17 08:15] VITALS: BP 96/56; PULSE 69; RESP 16; TEMP 37.1; O2SAT 97
[2024-06-17 08:30] VITALS: BP 96/66; PULSE 68; RESP 16; TEMP 36.9; O2SAT 98
[2024-06-17 08:49] LABS: CREATININE 1.7 mg/dL (0.55-1.02); Estimated GFR 32.06 (mL/min/1.73m2)
[2024-06-17 09:00] VITALS: BP 122/77; PULSE 68; RESP 16; TEMP 36.7; O2SAT 98
[2024-06-17] MEDS: Normal Saline Flush 10 ML SYR IVP (09:22)
[2024-06-17 09:30] VITALS: BP 107/62; PULSE 68; RESP 16; TEMP 36.7; O2SAT 98
[2024-06-18] MEDS: IMMUNE GLOBULIN 40 GM/400 ML BTL IVPB (08:18)
[2024-06-18] MEDS: Normal Saline Flush 10 ML SYR IVP (08:18)
[2024-06-18 08:30] VITALS: BP 107/62; PULSE 72; RESP 16; TEMP 36.4; O2SAT 97
[2024-06-18 08:45] VITALS: BP 116/71; PULSE 73; RESP 16; TEMP 36; O2SAT 98
[2024-06-18 09:00] VITALS: BP 106/72; PULSE 73; RESP 16; TEMP 36.1; O2SAT 97
[2024-06-18 09:30] VITALS: BP 115/76; PULSE 74; RESP 16; TEMP 36.1; O2SAT 97
[2024-06-18 10:00] VITALS: BP 115/76; PULSE 74; RESP 16; TEMP 36.1; O2SAT 97
[2024-06-19 08:00] VITALS: BP 113/73; PULSE 68; RESP 17; TEMP 37.1; O2SAT 99
[2024-06-19] MEDS: Normal Saline Flush 10 ML SYR IVP (08:04)
[2024-06-19] MEDS: IMMUNE GLOBULIN 40 GM/400 ML BTL IVPB (08:04)
[2024-06-19 08:15] VITALS: BP 114/76; PULSE 66; RESP 17; TEMP 36.6; O2SAT 96
[2024-06-19 08:30] VITALS: BP 133/79; PULSE 73; RESP 17; TEMP 36.6; O2SAT 97
[2024-06-19 08:48] VITALS: BP 127/78; PULSE 73; RESP 16; TEMP 36.7; O2SAT 100
[2024-06-20] MEDS: IMMUNE GLOBULIN 40 GM/400 ML BTL IVPB (07:55)
[2024-06-20] MEDS: Normal Saline Flush 10 ML SYR IVP (07:55)
[2024-06-20 08:00] VITALS: BP 126/80; PULSE 75; RESP 17; TEMP 36.2; O2SAT 95
[2024-06-20 08:15] VITALS: BP 108/76; PULSE 82; RESP 17; TEMP 36; O2SAT 99
[2024-06-20 08:24] LABS: CREATININE 1.6 mg/dL (0.55-1.02); Estimated GFR 34.48 (mL/min/1.73m2)
[2024-06-20 08:30] VITALS: BP 112/70; PULSE 73; RESP 17; TEMP 36.4; O2SAT 95
[2024-06-20 09:00] VITALS: BP 117/76; PULSE 74; RESP 17; TEMP 36.3; O2SAT 95
[2024-06-20 09:30] VITALS: BP 146/79; PULSE 74; RESP 16; TEMP 36.6; O2SAT 95
[2024-06-20 10:01] VITALS: BP 121/75; PULSE 70; RESP 17; TEMP 36; O2SAT 96
== END 2024-07-17 23:59 | disposition home or self-care (01) ==
LOC: INF 01:17
PROVIDERS: PCP Family Medicine; Visit Provider Psychiatry & Neurology Neurology
DX: G61.81 Chronic inflammatory demyelinating polyneuritis (principal)
CPT/HCPCS: 36415; 96365; 96366; 82565; J1459

== ENCOUNTER 2024-07-16 10:46 | Outpatient (REF) | payer MEDICARE, SELFPAY ==
[2024-07-16 17:19] LABS: FREE T4 1.03 ng/dL (0.76-1.46)
== END 2024-07-16 10:47 | disposition home or self-care (01) ==
LOC: NCHCN 10:46
PROVIDERS: PCP Family Medicine; Visit Provider Family Medicine
DX: E04.1 Nontoxic single thyroid nodule (principal)
CPT/HCPCS: 84439; 84443

== ENCOUNTER 2024-07-22 09:37 | Emergency (ER) | payer OTHER, MEDICARE, SELFPAY ==
[2024-07-22] VITALS (23 sets, daily range): BP systolic 100–127; BP diastolic 50–79; PULSE 62–77; RESP 10–21; TEMP 36.9–37.1; O2SAT 94–99
--- NOTE | 2024-07-22 10:00 | DI.CT_ITS ---
Exam(s) CT HEAD CERV SPINE FACIAL WO EXAM: CT HEAD CERV SPINE FACIAL WO CLINICAL HISTORY: fall, left orbital injury, epistaxis, on eliquis. TECHNIQUE: Imaging Protocol: Axial computed tomography images with coronal and sagittal reformatted images were created and reviewed COMPARISON: No exams were available for comparison FINDINGS: CT Head: Ventricles and Extra axial spaces: Normal in size and morphology for the patient's age. Hemorrhage: There are small bilateral hyperdense subdural collections bilaterally. It measures 4 mm maximally on the right and 3 mm maximally on the left. There is no midline shift. Cerebral parenchyma: No evidence of an acute territorial infarct. Midline shift: None. Brainstem/Cerebellum: Normal. Calvarium: Please see below section under CT face. Visualized Paranasal sinuses/Mastoids: There is fluid seen in the left frontal sinus and several ante rior ethmoid air cells. The remaining visualized paranasal sinuses are clear as are the mastoid air cells. Soft Tissues: There is left periorbital soft tissue swelling and hematoma overlying the left frontal bone. CT Face: Facial Bones: There is a deformity of the nasal bones which may be chronic. No significant soft tis rina swelling is seen. There is a mildly depressed fracture involving the medial wall of the left orb it. The fracture extends to the roof of the left orbit. There is a fracture of the floor of the lef t frontal sinus. There does not appear to be involvement of the inner wall of the calvarium. There is retrobulbar air on the left. There is a fracture of the nasal septum. Sinuses and Mastoids: There is fluid seen in anterior ethmoid air cells and the left frontal sinus. Globes, extraocular muscles, optic nerves and retrobulbar fat: Normal. There is air seen in the supe rior retro-orbital soft tissues. Upper aerodigestive tract: Normal. Mandible and bilateral temporomandibular joints: Normal. Soft tissues: There is left periorbital soft tissue swelling and hematoma overlying the left frontal bone. CT Cervical Spine: Bones: No acute fracture or subluxation. Age-related degenerative changes are seen in the cervical sp ine. Soft Tissues: Unremarkable. Lung Apices: Clear. IMPRESSION: 1. Small bilateral subdural hematomas. No mass effect. 2. No acute fracture or subluxation in the cervical spine. 3. Fractures involving the roof of the left orbit and the medial wall of the left orbit. Small amoun t of retro-orbital air is seen superiorly. 4. Minimally displaced nasal septal fracture. 5. Left periorbital soft tissue swelling and subcutaneous hematoma overlying the left frontal bone. RADIATION DOSE DELIVERED: !Error Total DLP DATA REPOSITORY: All CT scans at this facility are submitted to the National Radiology Data Registry (NRDR) Dose Index Registry (DIR) with the [employer] (A[employer]). RADIATION OPTIMIZATION: All CT scans at this facility use at least one of these dose optimization te chniques: automated exposure control; mA and/or kV adjustment per patient size (includes targeted exa ms where dose is matched to clinical indication); or iterative reconstruction.
--- NOTE | 2024-07-22 10:00 | RT.EKG_ITS ---
APPROVED REPORT Exam: Resting ECG Reason for Exam: fall, afib Patient Location: E HR:65 bpm ECG Measurements Heart Rate 65 AXIS IL 212 P 47 QRSd 121 QRS -25 QT 438 T 33 QTc 460 Conclusion Sinus rhythm...normal P axis, V-rate 60- 99 Atrial premature complex...SV complex w/ short R-R interval Borderline prolonged IL interval...IL >212, V-rate 50- 90 Nonspecific intraventricular conduction delay...QRSd >115mS, not LBBB/RBBB Physician: NSR, no stemi
[2024-07-22] MEDS: ACETAMINOPHEN 1,000 MG/100 ML BAG 400 MG IVPB (10:16)
[2024-07-22 10:21] LABS: Abs Immature Grans 0.01 10^3/uL (0.0-0.06); Absolute Basophil Count 0.06 10^3/uL (0.0-0.2); Absolute Eosinophil Count 0.08 10^3/uL (0.0-0.7); Absolute Lymphocyte Count 1.14 10^3/uL (1.2-3.4); Absolute Monocyte Count 0.56 10^3/uL (0.1-0.8); Absolute Neutrophil Count 3.18 10^3/uL (1.2-6.7); Basophils % 1.2 %; Eosinophils % 1.6 %; HCT 45.1 % (36.0-46.0); HGB 15.1 g/dL (11.2-15.7); Immature Grans % 0.2 %; Lymphocytes % 22.7 %; MCH 30.6 pg (27.0-33.0); MCHC 33.5 % (32.0-36.0); MCV 92 fL (80-95); MPV 10.9 fL (8.0-11.0); Monocytes % 11.1 %; Neutrophils % 63.2 %; Platelet Count 217 10^3/uL (130-400); RBC 4.93 10^6/uL (3.93-5.22); RDW 13.8 % (11.7-14.6); RDW-SD 46.3 fL; WBC 5.03 10^3/uL (4.4-10.8)
[2024-07-22 10:33] LABS: ALT 34 U/L (14-59); AST 24 U/L (15-37); Albumin 3.8 g/dL (3.4-5.0); Alkaline Phosphatase 83 U/L (46-116); Anion Gap 8.2 mmol/L (3-11); BUN 29 mg/dL (7-18); Bilirubin, Total 0.74 mg/dL (0.2-1.0); CO2 25.8 mmol/L (21.0-32.0); CREATININE 1.6 mg/dL (0.55-1.02); Chloride 108 mmol/L (98-107); Estimated GFR 34.48 (mL/min/1.73m2); Glucose 107 mg/dL (74-106); Potassium 4.2 mmol/L (3.5-5.1); Sodium 142 mmol/L (136-145); Total Protein 8.6 g/dL (6.4-8.2)
--- NOTE | 2024-07-22 11:06 | DI.RAD_ITS ---
Exam(s) XR PELVIS AP EXAM: XR PELVIS AP CLINICAL HISTORY: fall. TECHNIQUE: 2D digital imaging was performed. Images were obtained. COMPARISON: No exams were available for comparison FINDINGS: BONES: No acute fracture is present. No bony destructive lesion is seen. JOINTS: No dislocation present. No joint space narrowing is present. SOFT TISSUE: Normal. IMPRESSION: No acute fracture or dislocation. DATA REPOSITORY: RADIATION DOSE DELIVERED:
--- NOTE | 2024-07-22 11:07 | DI.RAD_ITS ---
Exam(s) XR CHEST 1V IN DI DEPT EXAM: XR CHEST 1V IN DI DEPT CLINICAL HISTORY: fall on eliquis TECHNIQUE: 2D digital imaging was performed of the chest. One image was obtained. An AP view was ob tained. COMPARISON: CR XR CHEST 2V PA LATERAL from 02/06/2019 FINDINGS: MEDIASTINUM: Normal. HEART: Normal. PULMONARY VASCULATURE: Normal. LUNGS: Clear. PLEURAL SPACE: No pleural effusion or pneumothorax. BONE:Within normal limits for the patient's age. OTHER FINDINGS:Normal. IMPRESSION: No acute pulmonary findings. DATA REPOSITORY: RADIATION DOSE DELIVERED:
--- NOTE | 2024-07-22 11:07 | DI.RAD_ITS ---
Exam(s) XR HAND LT COMPLETE EXAM: XR HAND LT COMPLETE CLINICAL HISTORY: fall, hand injury. TECHNIQUE: 2D digital imaging was performed of the left hand. Three views were obtained. AP, later al and oblique views were obtained. COMPARISON: No exams were available for comparison FINDINGS: BONES: No acute fracture is present. No bony destructive lesion is seen. JOINTS: No dislocation present. There are degenerative changes seen in the hand and wrist particularl y at the 1st CMC joint. SOFT TISSUE: Normal. IMPRESSION: No acute fracture or dislocation. DATA REPOSITORY: RADIATION DOSE DELIVERED:
--- NOTE | 2024-07-22 11:47 | W.ED.GENAD ---
Discharge Plan Disposition Patient Disposition: Transfer-Acute Inpatient Care Specific Acute Inpt Facility: [facility] Discharge Details Clinical Impression: Acute subdural hematoma, Orbital fracture, Periorbital hematoma, Chronic anticoagulation, Atrial fibrillation, CKD (chronic kidney disease) Primary Care Provider: Sammie Cordero ED Provider: Janice Mathur Home Meds and New Rx's Prescriptions: No Action furosemide 20 mg tablet 20 mg PO DAILY alendronate 70 mg tablet 70 mg PO QWEEK Entresto 49-51 mg tablet 1 tab PO BID Qty: 180 3RF latanoprost 0.005 % drops 1 drp ophthalmic (eye) DAILY cholecalciferol (vitamin D3) 50 mcg (2,000 unit) capsule 50 mcg PO DAILY apixaban 5 mg tablet 5 mg PO BID Qty: 120 3RF dapagliflozin propanediol [Farxiga] 10 mg tablet 10 mg PO DAILY spironolactone 25 mg tablet 25 mg PO DAILY metoprolol succinate 100 mg tablet extended release 24 hr 200 mg PO HS atorvastatin 20 mg tablet 20 mg PO DAILY Ozempic 1 mg/dose (4 mg/3 mL) pen injector 1 mg subcut QWEEK Patient Comments: new increase but hasn't started yet Multi Complete with Iron 1 EACH tablet 1 tab-cap PO DAILY ascorbic acid (vitamin C) [Vitamin C] 500 MG tablet 500 mg PO DAILY vitamin E 400 UNIT capsule 400 unit PO DAILY Qty: 1 garlic 1 EACH capsule 1 ea PO DAILY Fish Oil 1 EACH capsule 1 ea PO DAILY calcitriol 0.25 mcg capsule 0.25 mcg PO .3 x a week timolol maleate 0.5 % drops 1 drp ophthalmic (eye) DAILY thiamine HCl (vitamin B1) [Vitamin B-1] 100 mg Tablet 100 mg PO DAILY acetaminophen [Tylenol] 325 mg Tablet 325 - 650 mg PO Q4H PRN PRNQty: 0 0RF Discharge Data Discharge Date/Time-TO BE ENTERED AT DEPARTURE: 07/22/24 13:48 HPI <BENNETT Hernandez - Last Filed: 07/23/24 16:47> General Date/Time Provider Initiated Documentation: 07/22/24 09:39. HPI Narrative: This 69-year-old female presents post fall this morning standing on the last step she slipped, falling forward onto her face. There was no loss of consciousness and she remembers the event. She denies chest pain or shortness of breath. She was unable to stand after the event secondary to lightheadedness. Tetanus was updated in 2019. Patient does endorse Eliquis use for atrial fibrillation history. She adamantly denies any chest pain or shortness of breath currently. She predominately is complaining some discomfort to her head and left orbit. She did have reported epistaxis initially which is since resolved. Some mild tenderness to her left hand denies any additional complaints at this time. Related Data Home Medications ?Medication ?Instructions ?Recorded ?Confirmed ascorbic acid (vitamin C) 500 mg 500 mg PO DAILY 05/15/13 07/22/24 tablet (Vitamin C) multivitamin-ferrous 1 tab-cap PO DAILY 05/15/13 07/22/24 fumarate-folic acid 18 mg-400 mcg tablet (Multi Complete with Iron) vitamin E 268 mg (400 unit) capsule 400 unit PO DAILY ##1 05/15/13 07/22/24 garlic 1 ea PO DAILY 05/21/14 07/22/24 omega-3 fatty acids-fish oil 340 1 ea PO DAILY 06/10/15 07/22/24 mg-1,000 mg capsule (Fish Oil) thiamine HCl (vitamin B1) 100 mg 100 mg PO DAILY 12/24/18 07/22/24 tablet (Vitamin B-1) acetaminophen 325 mg tablet 325 - 650 mg (1 - 2 x 325 mg) PO 12/31/18 07/22/24 (Tylenol) Q4H PRN PRN #0 tabs alendronate 70 mg tablet 70 mg PO QWEEK 02/21/19 07/22/24 furosemide 20 mg tablet 20 mg PO DAILY 08/28/19 07/22/24 sacubitril 49 mg-valsartan 51 mg 1 tab PO BID #180 tabs 11/25/20 07/22/24 tablet (Entresto) cholecalciferol (vitamin D3) 50 50 mcg PO DAILY 01/17/21 07/22/24 mcg (2,000 unit) capsule calcitriol 0.25 mcg capsule 0.25 mcg PO .3 x a week 02/21/22 07/22/24 apixaban 5 mg tablet 5 mg PO BID #120 tabs 06/06/22 07/22/24 timolol maleate 0.5 % eye drops 1 drp ophthalmic (eye) DAILY 01/11/23 07/22/24 dapagliflozin propanediol 10 mg 10 mg PO DAILY 02/21/23 07/22/24 tablet (Farxiga) spironolactone 25 mg tablet 25 mg PO DAILY 02/21/23 07/22/24 metoprolol succinate 100 mg 200 mg PO HS 04/10/23 07/22/24 tablet,extended release 24 hr latanoprost 0.005 % eye drops 1 drp ophthalmic (eye) DAILY 01/03/24 07/22/24 atorvastatin 20 mg tablet 20 mg PO DAILY 05/12/24 07/22/24 semaglutide 1 mg/dose (4 mg/3 mL) 1 mg subcut QWEEK 05/12/24 07/22/24 subcutaneous pen injector (Ozempic) Previous Rx's ?Medication ?Instructions ?Recorded acetaminophen 325 mg tablet 325 - 650 mg (1 - 2 x 325 mg) PO 12/31/18 (Tylenol) Q4H PRN PRN #0 tabs sacubitril 49 mg-valsartan 51 mg 1 tab PO BID #180 tabs 11/25/20 tablet (Entresto) apixaban 5 mg tablet 5 mg PO BID #120 tabs 06/06/22 Allergies Allergy/AdvReac Type Severity Reaction Status Date / Time feathers Allergy Intermediate Watery Verified 07/22/24 09:45 eyes, sneezing Dust Allergy Intermediate Watery Uncoded 07/22/24 09:45 eyes, sneezing, Environmental Allergy Intermediate Running Uncoded 07/22/24 09:45 nose, watery eyes, sneezing General Stated Complaint: Fall/Non TraumaCriteria ANTOLIN: 3 Exam <BENNETT Hernandez - Last Filed: 07/23/24 16:47> Narrative Exam Narrative: Alert, oriented, 69-year-old female, answering questions appropriately, pupils equal round reactive to light and accommodation, extraocular muscles intact, no proptosis, large periorbital hematoma on the left, some mild maxillary sinus tenderness, abrasion to naris, no obvious septal hematoma or current epistaxis, no cervical spine tenderness, lungs clear to auscultation bilaterally, cardiac rate rhythm regular, no abdominal tenderness or visible signs of trauma, no pallor, no thoracic or lumbar spine tenderness, GCS 15, alert and oriented x 4, cranial nerves II through XII intact, answering questions appropriately in no acute distress thank you Course <BENNETT Hernandez - Last Filed: 07/23/24 16:47> Vital Signs Vital signs: Vital Signs Respiratory Rate 13 07/22/24 09:43 Temperature 37.1 C 07/22/24 09:54 Temperature Source Temporal Artery Scan 07/22/24 09:54 Pulse 66 07/22/24 09:54 Pulse 69 07/22/24 09:50 Respiratory Rate 16 07/22/24 09:54 Respiratory Effort Normal, Non-Labored 07/22/24 09:59 Blood Pressure 116/50 L 07/22/24 09:54 Blood Pressure Mean 67 07/22/24 09:45 Blood Pressure Position Supine 07/22/24 09:54 Pulse Oximetry 98 07/22/24 10:00 Oxygen Delivery Method Room Air 07/22/24 09:54 Oxygen Flow Rate 0 07/22/24 09:54 Pain Level 3 07/22/24 09:54 Lab/Test Results Lab/Test Results: Laboratory Tests Range/Units 07/22/24 09:50 WBC (4.4-10.8) 10^3/uL 5.03 RBC (3.93-5.22) 10^6/uL 4.93 Hgb (11.2-15.7) g/dL 15.1 Hct (36.0-46.0) % 45.1 MCV (80-95) fL 92 MCH (27.0-33.0) pg 30.6 MCHC (32.0-36.0) % 33.5 RDW (11.7-14.6) % 13.8 Plt Count (130-400) 10^3/uL 217 MPV (8.0-11.0) fL 10.9 Immature Gran % % 0.2 Neutrophils % % 63.2 Lymphocytes % % 22.7 Monocytes % % 11.1 Eosinophils % % 1.6 Basophils % % 1.2 Nucleated RBC % (0.0-0.3) % 0.0 Absolute Neutrophils (1.2-6.7) 10^3/uL 3.18 Absolute Lymphocytes (1.2-3.4) 10^3/uL 1.14 L Absolute Monocytes (0.1-0.8) 10^3/uL 0.56 Absolute Eosinophils (0.0-0.7) 10^3/uL 0.08 Absolute Basophils (0.0-0.2) 10^3/uL 0.06 Sodium (136-145) mmol/L 142 Potassium (3.5-5.1) mmol/L 4.2 Chloride (98-107) mmol/L 108 H Carbon Dioxide (21.0-32.0) mmol/L 25.8 Anion Gap (3-11) mmol/L 8.2 BUN (7-18) mg/dL 29 H Creatinine (0.55-1.02) mg/dL 1.6 H Est GFR (CKD-EPI 2020) (mL/min/1.73m2) 34.48 Glucose (74-106) mg/dL 107 H Calcium (8.5-10.1) mg/dL 10.0 Total Bilirubin (0.2-1.0) mg/dL 0.74 AST (15-37) U/L 24 ALT (14-59) U/L 34 Alkaline Phosphatase (46-116) U/L 83 Total Protein (6.4-8.2) g/dL 8.6 H Albumin (3.4-5.0) g/dL 3.8 Medical Decision Making <BENNETT Hernandez - Last Filed: 07/23/24 16:47> 69-year-old female presenting post mechanical fall anticoagulated on Eliquis with about loss of consciousness. CT facial bones, head, and cervical spine were obtained, orbital fracture with communication with the left sinus and nares fracture noted, no obvious retro-orbital hematoma, visual acuity and left orbital exam remains stable throughout stay at this facility. mild pressure dressing applied for periorbital hematoma and fracture to prevent persistent bleeding. Tetanus is up-to-date. GCS 15 with a nonfocal neurological exam. Remains hemodynamically stable. ct imaging and xray imaging reviewed with dr kong, radiology. Secondary to Eliquis with evidence of bilateral small subdurals without shift. Neuroexam is remained stable throughout this visit. My attending physician performed FAST exam without acute abnormality, please see documentation. I spoke with Dr. Kong radiology regarding the bilateral subdural and facial fractures. Case was discussed with Dr. Tarango, surgeon on-call for [facility] and he has accepted patient for transfer to the emergency department. Patient received 25 units/kg of Kcentra secondary to Eliquis with intracranial hemorrhag. Stable for transfer at this time. secondary to lack of local ground transportation, [facility] will transfer pt to [facility]. pt remains neurologically stable. Dr. Montalvo's documentation: I was asked to come evaluate the patient with Janice Mathur. Imaging revealed evidence of to's very small subdural hematomas. Patient remains neurovascularly stable on repeat neurovascular exams. Blood pressure is 100/58. Heart rate normal with intermittent PVCs. Patient states that the headache is stable. Bedside FAST exam was performed with no evidence of free fluid in the abdomen. No pericardial effusion of significant. Patient is being given Kcentra. Patient will be transferred via [facility] for management at [facility]. I agree with the current plan of management at the time of signing. Quality:[facility] Health Related Social Needs: No Data to Display <Lucio Montalvo, - Last Filed: 07/22/24 13:17> 69-year-old female presenting post mechanical fall anticoagulated on Eliquis with about loss of consciousness. CT facial bones, head, and cervical spine were obtained, orbital fracture with communication with the left sinus and nares fracture noted, no obvious retro-orbital hematoma, visual acuity and left orbital exam remains stable throughout stay at this facility. Tetanus is up-to-date. GCS 15 with a nonfocal neurological exam. Remains hemodynamically stable. Secondary to Eliquis with evidence of bilateral small subdurals without shift. Neuroexam is remained stable throughout this visit. My attending physician performed FAST exam without acute abnormality, please see documentation. I spoke with Dr. Kong radiology regarding the bilateral subdural and facial fractures. Case was discussed with Dr. Tarango, surgeon on-call for [facility] and he has accepted patient for transfer to the emergency department. Patient received 25 units/kg of Kcentra secondary to Eliquis with intracranial hemorrhag. Stable for transfer at this time Dr. Montalvo's documentation: I was asked to come evaluate the patient with Janice Mathur. Imaging revealed evidence of to's very small subdural hematomas. Patient remains neurovascularly stable on repeat neurovascular exams. Blood pressure is 100/58. Heart rate normal with intermittent PVCs. Patient states that the headache is stable. Bedside FAST exam was performed with no evidence of free fluid in the abdomen. No pericardial effusion of significant. Patient is being given Kcentra. Patient will be transferred via [facility] for management at [facility]. I agree with the current plan of management at the time of signing. Critical Care Time <BENNETT Hernandez - Last Filed: 07/23/24 16:47> Critical Care Time Attestation: 45 minutes of cc time secondary to ICH in the setting of trauma in an anticoagulated patient, requiring urgent reversal. neuro checks q15, telemetry monitoring, kcentra administration for reversal, iv fluids, tertiary care trauma surgeon consultation, ct imaging, and transfer to tertiary care center. PFSH <BENNETT Hernandez - Last Filed: 07/23/24 16:47> All Active Problems (Updated 07/23/24 @ 16:47 by BENNETT Hernandez) CKD (chronic kidney disease) (Chronic) Atrial fibrillation (Chronic) Chronic anticoagulation (Acute) Periorbital hematoma (Acute) Orbital fracture (Acute) Acute subdural hematoma (Acute) Inflammatory neuropathy (Acute) Peripheral neuropathy (Acute) Elevated troponin level not due myocardial infarction (Acute) ENA (acute kidney injury) (Acute) Pneumonia (Acute) Sepsis (Acute) Sarcoidosis (Chronic) Glaucoma (Chronic) Bilateral cataracts (Acute) Dyspnea on exertion (Acute) Hyperparathyroidism due to renal insufficiency (Acute) Screening for colon cancer (Acute) Serrated adenoma of colon (Acute) Tubular adenoma of colon (Acute) Hyperplastic colon polyp (Acute) Hypertension (Acute 05/21/14) untreated Acute renal failure (Acute) Adnexal mass (Acute) 5 cm hypoechoic left ovarian lesion most likely benign process. CA 125 currently pending DVT prophylaxis (Acute) Cardiomyopathy (Chronic) Medical History Breast cancer screening H/O adenomatous polyp of colon High triglycerides Complaint of paresthesia Vitamin D deficiency Osteoporosis Ulnar neuropathy of right upper extremity Carpal tunnel syndrome on both sides Positive fecal immunochemical test 2020 Atrial fibrillation Chronic kidney disease, stage 3 f/u a@ [facility] [place] per pt. stated she was told she didn't have this dx Prediabetes Menopausal syndrome Discharge planning issues Lung nodule Lytic lesion of bone on x-ray Hypercalcemia Dilated cardiomyopathy Hyperlipidemia (05/15/13) Essential hypertension Surgical History Hx of colonoscopy S/P right oophorectomy Oophrectomy, Left Left ovary present at the time of pelvic ultrasound 12/24/2018 Diagnostic Laproscopy (~1980) During infertility evaluation when younger Appendectomy Family History Mother Dementia Father Prostate cancer Hypertension Hyperlipidemia Heart disease Social History Smoking/Tobacco Use Status: Never Smoking risk assessment performed?: Yes Alcohol Intake: never Drug use: Never Substance use type: does not use Housing: house Number of Children: 3 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 Do you feel safe at home: Yes Do you feel safe in your relationship?: Yes Additional Social history: live alone POCUS Exam (ED) <Lucio Montalvo DO - Last Filed: 07/22/24 13:17> FAST Exam DATE OF EXAM: 07/22/24 TIME OF EXAM: 13:15 PROVIDER THAT PERFORMED THE STUDY: Lucio Montalvo IS THIS A REPEAT EXAM DURING THIS ENCOUNTER: no REASON FOR EXAM: Fall VISUALIZED STRUCTURES: Hepatorenal space, Pelvis, Pericardium and Perisplenic space PERTINENT FINDINGS/IMPRESSION: no apparent abnormalities Limited Transthoracic Exam: Exam complete Limited Chest Exam: Exam complete Limited Abdominal Exam: Exam complete Limited Retroperitoneal Exam: Exam complete
--- NOTE | 2024-07-22 11:52 | NUR.NOTE ---
seizure pads applied, second IV placed. pt to receive K centra and Ceftriaxone.. [facility] consulted. C collar remains in place until [facility] clears C spine.
[2024-07-22] MEDS: cefTRIAXone 1 GM/50 ML BAG IVPB (12:06)
--- NOTE | 2024-07-22 12:15 | RT.EKG_ITS ---
APPROVED REPORT Exam: Resting ECG Reason for Exam: ectopy with brain bleed Patient Location: E HR:67 bpm ECG Measurements Heart Rate 67 AXIS AR 219 P 20 QRSd 120 QRS -24 QT 433 T 65 QTc 452 Conclusion Sinus rhythm...normal P axis, V-rate 60- 99 Multiform ventricular premature complexes...short R-R, variable morphology Borderline prolonged AR interval...AR >212, V-rate 50- 90 Nonspecific intraventricular conduction delay...QRSd >115mS, not LBBB/RBBB Abnrm R prog, consider ASMI or lead placement...Q >30mS, diminished R, V1-V2 I have reviewed and interpreted ECG and agree with software generated interpretation.
--- NOTE | 2024-07-22 12:16 | NUR.NOTE ---
daughter niall called for updates on plan of care. Daughter made aware of intent to transfer to [facility] and interventions to stabilize pt here.
[2024-07-22] MEDS: HUMAN PROTHROM. CMPX. 2,000 UNIT in EMPTY EVACUATED CONTAINER 1 EACH 360 UNIT IV (12:24)
[2024-07-22] MEDS: Normal Saline 250 ML 100 ML IV (12:29)
== END 2024-07-22 13:48 | disposition short-term general hospital (02) ==
LOC: ER 09:45
PROVIDERS: Emergency Provider Physician Assistant; PCP Family Medicine
DX: S06.5X0A Traumatic subdural hemorrhage without loss of consciousness, initial encounter (principal); S02.122A Fracture of orbital roof, left side, initial encounter for closed fracture; S02.832A Fracture of medial orbital wall, left side, initial encounter for closed fracture; S02.2XXA Fracture of nasal bones, initial encounter for closed fracture; I12.9 Hypertensive chronic kidney disease with stage 1 through stage 4 chronic kidney disease, or unspecified chronic kidney disease; N18.30 Chronic kidney disease, stage 3 unspecified; R94.31 Abnormal electrocardiogram [ECG] [EKG]; Z79.82 Long term (current) use of aspirin; Z79.85 Long-term (current) use of injectable non-insulin antidiabetic drugs; E78.5 Hyperlipidemia, unspecified; W10.8XXA Fall (on) (from) other stairs and steps, initial encounter; Y93.01 Activity, walking, marching and hiking; Y92.22 Religious institution as the place of occurrence of the external cause
CPT/HCPCS: 36415; 76604; 76705; 76857; 80053; 93005; 96365; 96366; 96368; 99285; 70450; 70486; 71045; 72125; 72170; 73130; 85025; 93010; 99284; J0131; J0696; J7168

== ENCOUNTER → 2024-07-30 08:53 | Outpatient (BNVA) | payer MEDICARE, SELFPAY | PROVIDERS: PCP Family Medicine; Referring Provider Family Medicine; Visit Provider Psychiatry & Neurology Neurology | DX: G62.9 Polyneuropathy, unspecified (principal); G56.03 Carpal tunnel syndrome, bilateral upper limbs; G56.21 Lesion of ulnar nerve, right upper limb; D86.9 Sarcoidosis, unspecified; G61.9 Inflammatory polyneuropathy, unspecified | CPT/HCPCS: 99214 ==

== ENCOUNTER 2024-09-05 00:55 | Outpatient (RCR) | payer MEDICARE, SELFPAY ==
[2024-09-01] MEDS: IMMUNE GLOBULIN 5 GM/50 ML BTL IVPB (08:11)
[2024-09-01 08:15] VITALS: BP 107/69; PULSE 68; RESP 17; TEMP 36.9; O2SAT 98
[2024-09-01 08:30] VITALS: BP 107/69; PULSE 68; RESP 18; TEMP 36.7; O2SAT 96
[2024-09-01] MEDS: IMMUNE GLOBULIN 10 GM/100 ML BTL IVPB (08:34)
[2024-09-01 08:45] VITALS: BP 102/67; PULSE 67; RESP 17; TEMP 36.3; O2SAT 96
[2024-09-01 09:15] VITALS: BP 104/70; PULSE 67; RESP 18; TEMP 36.7; O2SAT 96
[2024-09-01] MEDS: IMMUNE GLOBULIN 20 GM/200 ML BTL IVPB (09:15)
[2024-09-01 09:50] VITALS: BP 127/66; PULSE 66; RESP 17; TEMP 36.4; O2SAT 99
[2024-09-01] MEDS: Normal Saline Flush 10 ML SYR IVP (10:16)
[2024-09-02] MEDS: IMMUNE GLOBULIN 40 GM/400 ML BTL IVPB (08:14)
[2024-09-02 08:16] VITALS: BP 98/65; PULSE 69; RESP 18; TEMP 36.8; O2SAT 98
[2024-09-02] MEDS: Normal Saline Flush 10 ML SYR IVP (08:17)
[2024-09-02 08:20] LABS: CREATININE 1.4 mg/dL (0.55-1.02); Estimated GFR 40.47 (mL/min/1.73m2)
[2024-09-02 08:35] VITALS: BP 107/67; PULSE 72; RESP 18; TEMP 36.7; O2SAT 98
[2024-09-02 09:00] VITALS: BP 106/63; PULSE 70; RESP 16; TEMP 36.8; O2SAT 97
[2024-09-02 09:33] VITALS: BP 109/69; PULSE 67; RESP 17; TEMP 36.8; O2SAT 100
[2024-09-02 10:03] VITALS: BP 119/76; PULSE 71; RESP 17; TEMP 36.5; O2SAT 98
[2024-09-03] MEDS: Normal Saline Flush 10 ML SYR IVP (08:00)
[2024-09-03] MEDS: IMMUNE GLOBULIN 10 GM/100 ML BTL IVPB (08:00)
[2024-09-03 08:05] VITALS: BP 119/80; PULSE 67; RESP 17; TEMP 36.2; O2SAT 99
[2024-09-03 08:19] VITALS: BP 111/71; PULSE 73; RESP 17; TEMP 36.2; O2SAT 95
[2024-09-03 08:35] VITALS: BP 115/76; PULSE 76; RESP 17; TEMP 36.3; O2SAT 97
[2024-09-03] MEDS: IMMUNE GLOBULIN 20 GM/200 ML BTL IVPB (08:53)
[2024-09-03 09:05] VITALS: BP 113/71; PULSE 76; RESP 18; TEMP 36.4; O2SAT 98
[2024-09-03 09:35] VITALS: BP 115/77; PULSE 66; RESP 17; TEMP 36.3; O2SAT 97
[2024-09-04 07:35] VITALS: BP 116/77; PULSE 69; RESP 18; TEMP 36.5; O2SAT 99
[2024-09-04] MEDS: IMMUNE GLOBULIN 5 GM/50 ML BTL IVPB (07:50)
[2024-09-04] MEDS: Normal Saline Flush 10 ML SYR IVP (07:59)
[2024-09-04 08:10] VITALS: BP 104/66; PULSE 71; RESP 17; TEMP 36.5; O2SAT 95
[2024-09-04] MEDS: IMMUNE GLOBULIN 10 GM/100 ML BTL IVPB (08:23)
[2024-09-04 08:25] VITALS: BP 100/67; PULSE 73; RESP 18; TEMP 36.6; O2SAT 98
[2024-09-04 08:55] VITALS: BP 103/70; PULSE 70; RESP 17; TEMP 36.1; O2SAT 98
[2024-09-04] MEDS: IMMUNE GLOBULIN 20 GM/200 ML BTL IVPB (09:01)
[2024-09-04 09:28] VITALS: BP 118/79; PULSE 74; RESP 18; TEMP 36.5; O2SAT 99
[2024-09-05] MEDS: IMMUNE GLOBULIN 5 GM/50 ML BTL IVPB (07:58)
[2024-09-05 08:14] LABS: CREATININE 1.6 mg/dL (0.55-1.02); Estimated GFR 34.48 (mL/min/1.73m2)
[2024-09-05 08:29] VITALS: BP 102/66; PULSE 74; RESP 18; TEMP 36.5; O2SAT 97
[2024-09-05] MEDS: IMMUNE GLOBULIN 10 GM/100 ML BTL IVPB (08:42)
[2024-09-05] MEDS: Normal Saline Flush 10 ML SYR IVP (08:43)
[2024-09-05 08:49] VITALS: BP 110/71; PULSE 74; RESP 18; TEMP 36.7; O2SAT 96
[2024-09-05 08:53] VITALS: BP 118/72; PULSE 72; RESP 16; TEMP 36.5; O2SAT 95
[2024-09-05 09:26] VITALS: BP 110/74; PULSE 71; RESP 16; TEMP 36.6; O2SAT 97
[2024-09-05] MEDS: IMMUNE GLOBULIN 20 GM/200 ML BTL IVPB (09:33)
[2024-09-05 10:08] VITALS: BP 109/73; PULSE 69; RESP 16; TEMP 36.6; O2SAT 97
== END 2024-09-16 23:59 | disposition home or self-care (01) ==
LOC: INF 00:55
PROVIDERS: PCP Family Medicine; Visit Provider Psychiatry & Neurology Neurology
DX: G61.81 Chronic inflammatory demyelinating polyneuritis (principal)
CPT/HCPCS: 36415; 96365; 96366; 82565; J1459

== ENCOUNTER 2024-12-05 02:52 | Outpatient (RCR) | payer MEDICARE, SELFPAY ==
[2024-09-17 00:14] VITALS: BP 109/73; PULSE 69; RESP 16; TEMP 36.6
[2024-12-01] MEDS: IMMUNE GLOBULIN 5 GM/50 ML BTL IVPB (07:58)
[2024-12-01 08:00] VITALS: BP 95/73; PULSE 70; RESP 14; TEMP 36.3
[2024-12-01 08:15] VITALS: PULSE 72; RESP 15; TEMP 36.3; O2SAT 95
[2024-12-01] MEDS: IMMUNE GLOBULIN 10 GM/100 ML BTL IVPB (08:26)
[2024-12-01 08:36] VITALS: BP 112/68; PULSE 67; RESP 16; TEMP 36.4; O2SAT 95
[2024-12-01] MEDS: Normal Saline Flush 5 ML SYR IVP (08:38)
[2024-12-01] MEDS: IMMUNE GLOBULIN 20 GM/200 ML BTL 2.75 GM IVPB (09:04)
[2024-12-01 09:05] VITALS: BP 110/71; PULSE 65; RESP 17; TEMP 36.4; O2SAT 97
[2024-12-01 09:35] VITALS: BP 118/74; PULSE 60; RESP 17; TEMP 36.3; O2SAT 97
[2024-12-01 09:45] VITALS: BP 109/72; PULSE 61; RESP 13; TEMP 36.4; O2SAT 98
[2024-12-02 08:00] VITALS: BP 94/67; PULSE 71; RESP 15; TEMP 36.4; O2SAT 98
[2024-12-02] MEDS: IMMUNE GLOBULIN 5 GM/50 ML BTL IVPB (08:12)
[2024-12-02 08:29] LABS: CREATININE 1.6 mg/dL (0.55-1.02); Estimated GFR 34.48 (mL/min/1.73m2)
[2024-12-02 08:30] VITALS: BP 111/70; PULSE 69; RESP 15; TEMP 36.3; O2SAT 94
[2024-12-02] MEDS: IMMUNE GLOBULIN 10 GM/100 ML BTL IVPB (08:43)
[2024-12-02 08:57] VITALS: BP 93/62; PULSE 97; RESP 16; TEMP 36.6; O2SAT 98
[2024-12-02 09:02] VITALS: BP 108/71; PULSE 74; RESP 16; TEMP 36.5; O2SAT 96
[2024-12-02] MEDS: IMMUNE GLOBULIN 20 GM/200 ML BTL 3.67 GM IVPB (09:28)
[2024-12-02 09:30] VITALS: BP 105/67; PULSE 65; RESP 16; TEMP 36.3; O2SAT 96
[2024-12-02] MEDS: Normal Saline Flush 5 ML SYR IVP (10:29)
[2024-12-03 08:07] VITALS: BP 112/75; PULSE 72; RESP 17; TEMP 36; O2SAT 95
[2024-12-03] MEDS: IMMUNE GLOBULIN 5 GM/50 ML BTL IVPB (08:10)
[2024-12-03 08:35] VITALS: BP 121/69; PULSE 71; RESP 18; TEMP 36.3; O2SAT 95
[2024-12-03] MEDS: IMMUNE GLOBULIN 10 GM/100 ML BTL IVPB (08:40)
[2024-12-03 08:51] VITALS: BP 118/78; PULSE 68; RESP 19; TEMP 36.1; O2SAT 95
[2024-12-03] MEDS: IMMUNE GLOBULIN 20 GM/200 ML BTL IVPB (09:19)
[2024-12-03 09:24] VITALS: BP 128/82; PULSE 69; RESP 19; TEMP 36.8; O2SAT 97
[2024-12-03] MEDS: Normal Saline Flush 5 ML SYR IVP (10:25)
[2024-12-04 07:38] VITALS: BP 117/74; PULSE 68; RESP 18; TEMP 36; O2SAT 98
[2024-12-04] MEDS: Normal Saline Flush 5 ML SYR IVP (07:40)
[2024-12-04] MEDS: IMMUNE GLOBULIN 5 GM/50 ML BTL IVPB (07:41)
[2024-12-04 08:08] VITALS: BP 121/78; PULSE 68; RESP 19; TEMP 36.1; O2SAT 96
[2024-12-04] MEDS: IMMUNE GLOBULIN 10 GM/100 ML BTL IVPB (08:13)
[2024-12-04 08:26] VITALS: BP 115/79; PULSE 69; RESP 19; TEMP 35.9; O2SAT 96
[2024-12-04] MEDS: IMMUNE GLOBULIN 20 GM/200 ML BTL IVPB (08:50)
[2024-12-04 08:56] VITALS: BP 121/82; PULSE 68; RESP 17; TEMP 36; O2SAT 99
[2024-12-04 09:28] VITALS: BP 127/82; PULSE 68; RESP 18; TEMP 35.7; O2SAT 98
[2024-12-05 07:46] VITALS: BP 112/73; PULSE 69; RESP 17; TEMP 35.9; O2SAT 98
[2024-12-05] MEDS: IMMUNE GLOBULIN 5 GM/50 ML BTL IVPB (08:03)
[2024-12-05] MEDS: Normal Saline Flush 5 ML SYR IVP (08:07)
[2024-12-05 08:19] VITALS: BP 125/76; PULSE 72; RESP 15; TEMP 36.3; O2SAT 97
[2024-12-05 08:24] LABS: CREATININE 1.7 mg/dL (0.55-1.02); Estimated GFR 32.06 (mL/min/1.73m2)
[2024-12-05] MEDS: IMMUNE GLOBULIN 10 GM/100 ML BTL IVPB (08:29)
[2024-12-05 08:34] VITALS: BP 106/71; PULSE 69; RESP 14; TEMP 36.4; O2SAT 96
[2024-12-05 09:05] VITALS: BP 118/70; PULSE 70; RESP 17; TEMP 36.4; O2SAT 98
[2024-12-05] MEDS: IMMUNE GLOBULIN 20 GM/200 ML BTL IVPB (09:11)
[2024-12-05 09:12] VITALS: BP 118/74; PULSE 70; RESP 14; TEMP 36.4; O2SAT 98
[2024-12-05 09:35] VITALS: BP 121/76; PULSE 65; RESP 16; TEMP 36.3; O2SAT 98
== END 2024-12-15 23:59 | disposition home or self-care (01) ==
LOC: INF 02:52
PROVIDERS: PCP Family Medicine; Visit Provider Psychiatry & Neurology Neurology
DX: G61.81 Chronic inflammatory demyelinating polyneuritis (principal)
CPT/HCPCS: 36415; 96365; 96366; 82565; J1459

== ENCOUNTER → 2025-01-01 10:56 | Outpatient (BNVA) | payer MEDICARE, SELFPAY | PROVIDERS: PCP Family Medicine; Referring Provider Family Medicine; Visit Provider Physical Therapy Assistant | DX: Z12.11 Encounter for screening for malignant neoplasm of colon (principal); D86.9 Sarcoidosis, unspecified; I12.9 Hypertensive chronic kidney disease with stage 1 through stage 4 chronic kidney disease, or unspecified chronic kidney disease; N18.30 Chronic kidney disease, stage 3 unspecified; Z86.0101 Personal history of adenomatous and serrated colon polyps ==

== ENCOUNTER 2025-01-19 06:56 | Day surgery (SDC) | payer MEDICARE, SELFPAY ==
--- NOTE | 2025-01-18 06:23 | W.PM.DSUDISC ---
Date of service: 01/19/25 Discharge Plan Disposition Patient Disposition: Home Condition: Good Discharge Details Reason For Visit: screening colonoscopy Attending Provider: Edgar Honeycutt Primary Care Provider: Sammie Cordero Home Meds and New Rx's Prescriptions: Continued furosemide 20 mg tablet 20 mg PO DAILY Entresto 49-51 mg tablet 1 tab PO BID Qty: 180 3RF latanoprost 0.005 % drops 1 drp ophthalmic (eye) DAILY cholecalciferol (vitamin D3) 50 mcg (2,000 unit) capsule 50 mcg PO DAILY apixaban 5 mg tablet 5 mg PO BID Qty: 120 3RF dapagliflozin propanediol [Farxiga] 10 mg tablet 10 mg PO DAILY spironolactone 25 mg tablet 25 mg PO DAILY metoprolol succinate 100 mg tablet extended release 24 hr 200 mg PO HS atorvastatin 20 mg tablet 20 mg PO DAILY Ozempic 1 mg/dose (4 mg/3 mL) pen injector 1 mg subcut QWEEK Patient Comments: new increase but hasn't started yet Multi Complete with Iron 1 EACH tablet 1 tab-cap PO DAILY ascorbic acid (vitamin C) [Vitamin C] 500 MG tablet 500 mg PO DAILY vitamin E 400 UNIT capsule 400 unit PO DAILY Qty: 1 garlic 1 EACH capsule 1 ea PO DAILY Fish Oil 1 EACH capsule 1 ea PO DAILY calcitriol 0.25 mcg capsule 0.25 mcg PO .3 x a week timolol maleate 0.5 % drops 1 drp ophthalmic (eye) DAILY thiamine HCl (vitamin B1) [Vitamin B-1] 100 mg Tablet 100 mg PO DAILY acetaminophen [Tylenol] 325 mg Tablet 325 - 650 mg PO Q4H PRN PRNQty: 0 0RF Discontinued bisacodyl [Dulcolax (bisacodyl)] 5 mg tablet,delayed release (DR/EC) 5 mg PO ONCE Qty: 4 0RF Rx Instructions: Take per colonoscopy instructions provided by ordering providers office polyethylene glycol 3350 17 gram/dose powder 17 g PO ONCE Qty: 238 0RF Rx Instructions: Take per colonoscopy instructions provided by ordering providers office Discharge Instructions Instructions: Colon polyps, Diverticulosis Additional Instructions: Jen, it was very nice meeting you today, and I hope you feel well after the procedure. Things went very smoothly. I did find and removed just a small bit of polyp tissue on top of a lipoma (which is a benign fatty tumor in the large intestine. The lipoma itself was seen on your previous colonoscopies, and had been biopsied previously. It is possible that what I saw today is just some scar tissue from the previous biopsy. Regardless, I took some of this tissue off, we will send it off to the pathologist for the review. This was the only polyp that I found during the course of the colonoscopy, which is excellent. Incidentally, you also have some diverticulosis. These are little weak spots in the muscular layer of the colon wall. They typically accumulate as we age. Maintaining a diet that is rich in fiber, staying well-hydrated, and avoiding constipation are the basic premises of how to manage it. I will attach some information here on colon polyps as well as diverticulosis. Once I get the results of the polyp analysis, my office will be in touch with recommendations for future colonoscopies. If you need anything or have any questions, please do not hesitate to ask. 1. If tolerated, consume a soft, low fiber diet for 1-2 days. [address] not drive, drink alcohol, operate machinery, make critical decisions, or do activities that require coordination or balance for 24 hours. 3. Because air was put into your colon during the procedure, expelling air from your rectum (passing gas or farting) is normal. 4. You may not have a bowel movement for 1-3 days because of the colonoscopy prep. This is normal. 5. Go directly to the emergency room if you notice any of the following: Develop chills (warm to touch), or if you have a thermometer and your temperature is above 101 Difficulty breathing or difficultly swallowing Persistent vomiting Severe abdominal pain, other than gas cramps Severe chest pain Black, tarry stools Any bleeding ? exceeding one tablespoon 6. Call your physician if the site where your intravenous was started becomes red, swollen, painful, and warm to touch. 7. Your physician has reviewed your pre-procedure medications. Please continue to take those medications as previously ordered. You will be given specific information/education regarding any changes to your medications before leaving. Activity:: Activity as Tolerated Diet:: As Tolerated Discharge Orders Discharge Orders: Discharge Order (Routine); Ordered 01/18/25 Ordered By: Edgar Honeycutt DS: Diagnosis Discharge Diagnosis (1) Encounter for screening colonoscopy: Status: Acute Asessment and Plan: Follow-up on polypectomy results
--- NOTE | 2025-01-18 06:25 | W.COLOREPORT ---
Date of service: 01/19/25 Time of Service: 08:48 Colonoscopy Report Date of procedure: 01/19/25 Pre-op diagnosis general: screening colonoscopy Post-op diagnosis procedure note: other (Sigmoid diverticulosis, ascending colon lipoma, colon polyp) Procedure: colonoscopy Surgeon: Edgar Honeycutt Anesthesia Type: General:No Airway Estimated blood loss (mL): 5 Pathology: other (0.25 cm flat ascending colon polyp (on mucosa of lipoma)) Complications: None Disposition: same day Indications: Jen is a 69 year old woman with a history of adenomatous polyps who needs her next screening colonoscopy Prep: Miralax/Dulcolax Procedure Start Time: 08:09 Procedure End Time: 08:24 Retraction Time: 12 Findings: Ascending colon polyp, 0.25 cm flat polypoid tissue on the mucosa of this; sigmoid diverticulosis Procedure Description: After the induction of anesthesia, and with the patient in left lateral decubitus position, I began by performing an external anorectal exam.? Perineum and skin were normal, as was the anal verge.? There was no evidence of external hemorrhoids.? Next, I performed a digital rectal exam.? I did not appreciate any abnormal findings.? Next, I advanced a colonoscope into the rectal vault.? I performed retroflexion.? This appeared normal. Using irrigation, I then advanced the colonoscope beyond the rectal folds and into the sigmoid colon before advancing towards the cecum.? The quality of the prep was excellent.? There is sigmoid diverticulosis. While advancing through the ascending colon, we encountered a moderate-sized submucosal lesion consistent with a lipoma. This was documented on previous colonoscopies as well. We can traverse this with ease, and I advanced past the ileocecal valve into the cecum. The scope was noted to be in the cecum by identification of the appendiceal orifice.? I then began withdrawing the colonoscope using repeated irrigation as necessary for full evaluation of the colonic mucosa. The terminal ileum was gently cannulated, and found to be normal. As we brought the camera back past the lipoma, there was a small area of abnormality on the overlying mucosa. It did appear consistent with polyp, cold forceps polypectomy was performed without any issues. I would estimate this polyp to be 0.25 cm, and it was flat in character. While traversing the sigmoid section, we encountered an area of previous colonoscopic tattoo. Several passes were taken across this area. No abnormalities were appreciated here. Once the scope was withdrawn to the level of the rectum, great care was taken to examine portions of the rectal folds.? Finally, the scope was withdrawn and the patient was brought to the same-day surgery recovery unit as the anesthetic wore off. ?The findings and instructions were shared with the patient prior to discharge. Bimble Bowel Prep Bimble Bowel Prep Right Colon: 3 Left Colon: 3 Transverse Colon: 3 Total Score: 9
--- NOTE | 2025-01-18 10:59 | ANES.PREOP_ITS ---
General Info Date of Service Date Performed: 01/19/25 Height: 5 ft 8 in Weight: 92.986 kg Body Mass Index (BMI): 31.1 Surgical Procedure: Operation Date: 01/19/25 08:20 Proposed Procedure Side Surgeon omar Honeycutt MD Meds Allergies and Home Medications Allergies Allergy/AdvReac Type Severity Reaction Status Date / Time feathers Allergy Intermediate Watery Verified 01/19/25 07:22 eyes, sneezing Dust Allergy Intermediate Watery Uncoded 01/19/25 07:22 eyes, sneezing, Environmental Allergy Intermediate Running Uncoded 01/19/25 07:22 nose, watery eyes, sneezing Home Medication ?Medication ?Instructions ?Recorded ascorbic acid (vitamin C) 500 mg 500 mg PO DAILY 05/15/13 tablet (Vitamin C) multivitamin-ferrous 1 tab-cap PO DAILY 05/15/13 fumarate-folic acid 18 mg-400 mcg tablet (Multi Complete with Iron) vitamin E 268 mg (400 unit) capsule 400 unit PO DAILY ##1 05/15/13 garlic 1 ea PO DAILY 05/21/14 omega-3 fatty acids-fish oil 340 1 ea PO DAILY 06/10/15 mg-1,000 mg capsule (Fish Oil) thiamine HCl (vitamin B1) 100 mg 100 mg PO DAILY 12/24/18 tablet (Vitamin B-1) acetaminophen 325 mg tablet 325 - 650 mg (1 - 2 x 325 mg) PO 12/31/18 (Tylenol) Q4H PRN PRN #0 tabs furosemide 20 mg tablet 20 mg PO DAILY 08/28/19 sacubitril 49 mg-valsartan 51 mg 1 tab PO BID #180 tabs 11/25/20 tablet (Entresto) cholecalciferol (vitamin D3) 50 50 mcg PO DAILY 01/17/21 mcg (2,000 unit) capsule calcitriol 0.25 mcg capsule 0.25 mcg PO .3 x a week 02/21/22 apixaban 5 mg tablet 5 mg PO BID #120 tabs 06/06/22 timolol maleate 0.5 % eye drops 1 drp ophthalmic (eye) DAILY 01/11/23 dapagliflozin propanediol 10 mg 10 mg PO DAILY 02/21/23 tablet (Farxiga) spironolactone 25 mg tablet 25 mg PO DAILY 02/21/23 metoprolol succinate 100 mg 200 mg PO HS 04/10/23 tablet,extended release 24 hr latanoprost 0.005 % eye drops 1 drp ophthalmic (eye) DAILY 01/03/24 atorvastatin 20 mg tablet 20 mg PO DAILY 05/12/24 semaglutide 1 mg/dose (4 mg/3 mL) 1 mg subcut QWEEK 05/12/24 subcutaneous pen injector (Ozempic) Current Visit Medications: Current Medications Generic Name Dose Route Start Last Admin Trade Name Freq PRN Reason Stop Dose Admin Ringer's Solution 1,000 mls @ 80 mls/hr 01/19/25 06:00 IV 01/19/25 23:59 INFUSION DELIA IV Miscellaneous Supplies 1 each 01/19/25 06:00 Iv Access IV 01/19/25 23:59 DIRECTED DELIA Ondansetron HCl 4 mg 01/18/25 06:26 Ondansetron 4 Mg/2 Ml Vial IVP 02/17/25 06:25 Q4H PRN PRN Nausea / Vomiting Sodium Chloride 0 ml 01/19/25 06:00 Normal Saline Flush 10 Ml Syr IV 01/19/25 23:59 PRN PRN Sodium Chloride 0 ml 01/19/25 06:00 Normal Saline 10 Ml Vial IJ 01/19/25 23:59 DIRECTED PRN Sterile Water 0 ml 01/19/25 06:00 Water,Injection,Sterile 10 Ml Vial IJ 01/19/25 23:59 DIRECTED PRN PFSH Active Problems Active Problems: Problem Status Onset Code Encounter for screening colonoscopy Acute Z12.11 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 Peripheral neuropathy Acute G62.9 Elevated troponin level not due myocardial infarction Acute R79.89 ENA (acute kidney injury) Acute N17.9 Pneumonia Acute J18.9 Sepsis Acute A41.9 Sarcoidosis Chronic D86.9 Glaucoma Chronic H40.9 Bilateral cataracts Acute H26.9 Dyspnea on exertion Acute R06.09 Hyperparathyroidism due to renal insufficiency Acute N25.81 Screening for colon cancer Acute Z12.11 Serrated adenoma of colon Acute D12.6 Tubular adenoma of colon Acute D12.6 Hyperplastic colon polyp Acute K63.5 Hypertension Acute 05/21/14 I10 Acute renal failure Acute N17.9 Adnexal mass Acute N94.9 DVT prophylaxis Acute Cardiomyopathy Chronic I42.9 Medical History Medical History Breast cancer screening H/O adenomatous polyp of colon High triglycerides Complaint of paresthesia Vitamin D deficiency Osteoporosis Ulnar neuropathy of right upper extremity Carpal tunnel syndrome on both sides Positive fecal immunochemical test 2020 Atrial fibrillation Chronic kidney disease, stage 3 f/u a@ [facility] [place] per pt. stated she was told she didn't have this dx Prediabetes Menopausal syndrome Discharge planning issues Lung nodule Lytic lesion of bone on x-ray Hypercalcemia Dilated cardiomyopathy Hyperlipidemia (05/15/13) Essential hypertension Surgical History Surgical History Hx of colonoscopy S/P right oophorectomy Oophrectomy, Left Left ovary present at the time of pelvic ultrasound 12/24/2018 Diagnostic Laproscopy (~1980) During infertility evaluation when younger Appendectomy Tobacco Smoking/Tobacco Use Status: Never Passive smoking exposure: No Alcohol Alcohol Intake: never Substance Use Substance use: Never Substance use type: does not use Vital Signs and Lab Results Vital Signs Most Recent Vital Signs in EMR: Temp Pulse Resp BP Pulse Ox 36.4 C L 59 L 16 119/70 98 01/19/25 07:00 01/19/25 07:00 01/19/25 07:00 01/19/25 07:00 01/19/25 07:00 Lab Results Blood Type / Crossmatch: No Data to Display Complete Blood Count: No Data to Display Complete Metabolic Panel: No Data to Display Liver Function Panel: No Data to Display Coagulation Panel: No Data to Display Cardiac Panel: No Data to Display Arterial Blood Gas: No Data to Display Venous Blood Gas: No Data to Display Pancreas Panel: No Data to Display Thyroid Panel: No Data to Display Infectious Disease: No Data to Display Blood Cultures: No Data to Display Toxicology Panel: No Data to Display Imaging and Studies Imaging and Studies Study information below may be from another EMR and interpreted by another provider. Please see original notes in EMR for more complete details. Stress Test Summary: Date of study: 08/03/2017 (Report amended ) *PATIENT PRESENTATION* Height: 172.7cm (68in) Blood Pressure: Weight: 90.9kg (200lb) BSA: 2.11m^2 Ordering physician: Natasha Lopez Impressions: - Normal perfusion by [id number] Sestamibi Imaging. - Abnormal contraction consistent with cardiomyopathy. Summary: 1. Myocardial perfusion imaging: No myocardial perfusion defects noted. 2. The calculated left ventricular ejection fraction after stress: 28%. LV global systolic function is severely reduced. Echocardiogram Summary: Admission Date: 05/26/20 : 1955 Age: 65 Exam(s) a US:US echocardiogram APPROVED REPORT EXAM: Comprehensive 2D, Doppler, and color-flow Echocardiogram Patient Location: Out-Patient Trigonometry Tutor: Rajani Salas RDCS (AE) Indications: Cardiomyopathy, Sarcoid myocarditis Other Information Study Quality: Adequate Conclusion Left Ventricle : Left ventricle is severely dilated. Left ventricular systolic function is mildly decreased. There is normal left ventricular wall thickness. There is global mild hypokinesis of the left ventricle. Mild diastolic dysfunction is present (impaired relaxation pattern). LVEF is 43%. Right Ventricle : The right ventricle is normal size. The right ventricular systolic function is normal. Atria : Left atrium is mildly dilated. Right atrium is borderline dilated. Valves: There are no hemodynamically significant valvular lesions. Great Vessels : The aortic root is normal in size. The ascending aorta is mildly dilated. Aortic arch is normal in caliber. IVC is normal in size and collapses >50% with inspiration. Compared to echocardiogram from 09/06/2018, there is no significant change. Anesthesia Assessment and Plan Anesthesia History Personal History: No History of Anesthesia Complications Family History: No Family History of Anesthesia Complications Exercise Tolerance Exercise Tolerance: Metabolic Equivalents>4 Cardiac & Pulmonary Exam Cardiac Exam: Normal S1/S2 Heart Sounds Pulmonary Exam: Clear Bilateral Breath Sounds Implantable Cardiac Device Does patient have a Pacemaker or an ICD?: No Airway Exam Known Difficult Airway: No Mallampati Class: 4 Mouth Opening: Normal (> 3cm) Thyromental Distance: Greater than 3 cm Neck Range of Motion: Full ROM Neck Circumference: Normal Teeth Condition: Normal Dentition ASA Classification ASA Score: ASA 3 Emergency Case?: No NPO Status NPO Status: NPO Clears >2 hours, Solids >8 hours Anesthesia Plan Resuscitation Status: Full Code Anesthesia Technique: General Anesthesia Airway Planned: Natural Airway Monitors Used: Standard Monitors Preoperative Comments:: 69 yo female for colo. Sig PMHx: Afib (apixaban, metoprolol), HTN (spironolactone), cardiomyopathy (furosemide, farxiga), GUZMAN/sarcodosis, neuropathy, [place]/subdural [place], [place] [facility] [place] CKDIII, PreDM (ozempic), never smoker ECG: sinus. PVCs, long [place]. ECHO: LVEF 42%, mild MR PFTs: normal Stress: (2017) LVEF 28%, no evidence of ischemia. Previous Anes: - colo x 2, prop, lidocaine (200 mg), ephedrine, natural airway, no issues.
[2025-01-19 07:00] VITALS: BP 119/70; PULSE 59; RESP 16; TEMP 36.4; O2SAT 98
[2025-01-19] MEDS: Lactated Ringers 1,000 ML 80 ML IV (07:35)
[2025-01-19 07:53] VITALS: BMI 31.1
--- NOTE | 2025-01-19 08:28 | BOWEL_PTH ---
PATIENT: Jen Guevara LOC: [facility] U#:[id number] AGE/SX: 69/F ROOM: RE01/19/[address]: Edgar Honeycutt MD : 1955 BED: DIS: 01/19/2025 SPEC #: [id number] RECD: 01/19/25 13:17 STATUS: RYAN REQ #: [id number] ADIN: 01/19/25 08:[address]: Edgar Honeycutt DEPT: Surgical Specimen RECD BY: Janice Townsend ENTERED: 01/19/25 13:18 SP TYPE: Bowel OTHR DR: Sammie Cordero Tissues: 1 - BIOPSY BOWEL Procedures: GROSS AND MICRO LEVEL 4 Comments: [id number]
[2025-01-19 08:41] VITALS: BP 99/57; PULSE 65; RESP 16; TEMP 36.2; O2SAT 95
[2025-01-19 09:05] VITALS: BP 110/61; PULSE 58; RESP 16; TEMP 36.2; O2SAT 98
--- NOTE | 2025-01-19 09:40 | W.ANESPOSTOP ---
Postoperative Evaluation Date, Time and Location Date Performed: 01/19/25 Time Performed: 09:00 Patient Location: Day Surgery Unit Vital Signs Most Recent Imported Vital Signs: Most Recent Vital Signs Temp Pulse Resp BP Pulse Ox 36.2 C L 58 L 16 110/61 98 01/19/25 09:05 01/19/25 09:05 01/19/25 09:05 01/19/25 09:05 01/19/25 09:05 Pain Score Most Recent Pain Score: Most Recent Pain Score Pain Level 0 01/19/25 09:05 Assessment Mental Status: Awake (Alert & Oriented to Patient Baseline) Airway and Respiratory Function: Patent airway with normal (patient baseline) respiratory exam Cardiovascular Function: Hemodynamically Stable Hydration Status: Adequately Hydrated Nausea & Vomiting: No Nausea or Vomiting Pain: Pt. Denies Any Pain Peripheral Nerve Block: Patient did not receive a nerve block
== END 2025-01-19 09:45 | disposition home or self-care (01) ==
LOC: SUR 06:56
PROVIDERS: PCP Family Medicine; Visit Provider Surgery
PROC: 0DJD8ZZ Inspection of Lower Intestinal Tract, Via Natural or Artificial Opening Endoscopic (ICD-10-PCS; CPT 45378; principal; 2025-01-19 08:15)
DX: Z12.11 Encounter for screening for malignant neoplasm of colon (principal); K57.30 Diverticulosis of large intestine without perforation or abscess without bleeding; D12.2 Benign neoplasm of ascending colon; D17.79 Benign lipomatous neoplasm of other sites; Z86.0101 Personal history of adenomatous and serrated colon polyps
CPT/HCPCS: 45380; 88305; J2704

== ENCOUNTER 2025-02-27 01:32 | Outpatient (RCR) | payer MEDICARE, SELFPAY ==
[2025-02-23] MEDS: IMMUNE GLOBULIN 10 GM/100 ML BTL IVPB (07:58)
[2025-02-23] MEDS: Normal Saline Flush 10 ML SYR IVP (07:58)
[2025-02-23 08:00] VITALS: BP 100/64; PULSE 68; RESP 18; TEMP 36; O2SAT 98
[2025-02-23 08:15] VITALS: BP 98/60; PULSE 69; RESP 18; TEMP 36.5; O2SAT 98
[2025-02-23 08:30] VITALS: BP 97/59; PULSE 71; RESP 18; TEMP 36.4; O2SAT 99
[2025-02-23] MEDS: IMMUNE GLOBULIN 20 GM/200 ML BTL IVPB (08:53)
[2025-02-23 09:00] VITALS: BP 106/73; PULSE 64; RESP 18; TEMP 36.4; O2SAT 98
[2025-02-23 09:32] VITALS: BP 109/71; PULSE 68; RESP 19; TEMP 36.2; O2SAT 99
[2025-02-24] MEDS: Normal Saline Flush 10 ML SYR IVP (07:56)
[2025-02-24] MEDS: IMMUNE GLOBULIN 10 GM/100 ML BTL IVPB (07:56)
[2025-02-24 08:00] VITALS: BP 106/72; PULSE 62; RESP 18; TEMP 36.1; O2SAT 97
[2025-02-24 08:15] VITALS: BP 110/73; PULSE 68; RESP 18; TEMP 36; O2SAT 96
[2025-02-24 08:30] VITALS: BP 118/75; PULSE 66; RESP 18; TEMP 36; O2SAT 96
[2025-02-24 08:52] LABS: CREATININE 1.2 mg/dL (0.55-1.02)
[2025-02-24] MEDS: IMMUNE GLOBULIN 20 GM/200 ML BTL IVPB (08:54)
[2025-02-24 09:00] VITALS: BP 127/78; PULSE 65; RESP 18; TEMP 36.2; O2SAT 98
[2025-02-24 09:30] VITALS: BP 127/77; PULSE 65; RESP 18; TEMP 36.1; O2SAT 97
[2025-02-25] MEDS: IMMUNE GLOBULIN 10 GM/100 ML BTL IVPB (07:33)
[2025-02-25] MEDS: Normal Saline Flush 10 ML SYR IVP (07:34)
[2025-02-25 07:44] VITALS: BP 118/82; PULSE 72; RESP 20; TEMP 36; O2SAT 96
[2025-02-25] MEDS: IMMUNE GLOBULIN 20 GM/200 ML BTL IVPB (08:26)
[2025-02-25 08:44] VITALS: BP 103/70; PULSE 74; RESP 19; TEMP 36.3; O2SAT 96
[2025-02-25 09:13] VITALS: BP 139/89; PULSE 74; RESP 18; TEMP 36.4; O2SAT 96
[2025-02-26] MEDS: Normal Saline Flush 10 ML SYR IVP (07:41)
[2025-02-26] MEDS: IMMUNE GLOBULIN 10 GM/100 ML BTL IVPB (07:41)
[2025-02-26 08:00] VITALS: BP 117/79; PULSE 67; RESP 20; TEMP 36.5; O2SAT 98
[2025-02-26 08:15] VITALS: BP 105/72; PULSE 69; RESP 20; TEMP 35.6; O2SAT 97
[2025-02-26] MEDS: IMMUNE GLOBULIN 20 GM/200 ML BTL IVPB (08:42)
[2025-02-26 08:45] VITALS: BP 114/77; PULSE 69; RESP 20; TEMP 35.4; O2SAT 96
[2025-02-26 09:15] VITALS: BP 122/83; PULSE 68; RESP 20; TEMP 35.9; O2SAT 96
[2025-02-27] MEDS: IMMUNE GLOBULIN 10 GM/100 ML BTL IVPB (07:52)
[2025-02-27] MEDS: Normal Saline Flush 10 ML SYR IVP (07:52)
[2025-02-27 08:05] VITALS: BP 111/75; PULSE 70; RESP 19; TEMP 36; O2SAT 95
[2025-02-27 08:16] VITALS: BP 119/67; PULSE 69; RESP 20; TEMP 35.6; O2SAT 95
[2025-02-27 08:35] VITALS: BP 116/75; PULSE 70; RESP 18; TEMP 36; O2SAT 96
[2025-02-27 08:39] LABS: CREATININE 1.3 mg/dL (0.55-1.02); Estimated GFR 44.24 (mL/min/1.73m2)
[2025-02-27] MEDS: IMMUNE GLOBULIN 20 GM/200 ML BTL IVPB (08:55)
[2025-02-27 09:05] VITALS: BP 120/76; PULSE 72; RESP 18; TEMP 36.3; O2SAT 97
[2025-02-27 09:38] VITALS: BP 121/81; PULSE 78; RESP 19; TEMP 36.2; O2SAT 100
== END 2025-03-16 23:59 | disposition home or self-care (01) ==
LOC: INF 01:32
PROVIDERS: PCP Family Medicine; Visit Provider Psychiatry & Neurology Neurology
DX: G61.81 Chronic inflammatory demyelinating polyneuritis (principal)
CPT/HCPCS: 36415; 96365; 96366; 82565; J1459

== ENCOUNTER 2025-04-06 17:48 | Outpatient (REF) | payer MEDICARE, SELFPAY ==
[2025-04-06 21:41] LABS: COMMENT (LAB VIEW ONLY) 108.53 mg/dL; Microalb ug/mg Crea 6.9 ug/mg Cr
== END 2025-04-06 17:49 | disposition home or self-care (01) ==
LOC: NCHCN 17:48
PROVIDERS: PCP Family Medicine; Visit Provider Family Medicine
DX: E11.9 Type 2 diabetes mellitus without complications (principal)
CPT/HCPCS: 82043; 82570

== ENCOUNTER 2025-04-24 08:24 | Outpatient (CLI) | payer MEDICARE, SELFPAY ==
[2025-04-24 09:33] LABS: Calcium 9.2 mg/dL (8.5-10.1); TSH 0.32 uIU/mL (0.36-3.74)
== END 2025-04-24 08:25 | disposition home or self-care (01) ==
PROVIDERS: PCP Family Medicine; Visit Provider Surgery
DX: C73 Malignant neoplasm of thyroid gland (principal)
CPT/HCPCS: 36415; 82310; 83970; 84443; 86800

== ENCOUNTER 2025-05-25 03:37 | Outpatient (RCR) | payer MEDICARE, SELFPAY ==
[2025-05-19 07:50] VITALS: BP 85/57; PULSE 69; RESP 18; TEMP 36.3; O2SAT 97
[2025-05-19] MEDS: IMMUNE GLOBULIN 10 GM/100 ML BTL IVPB (07:52)
[2025-05-19] MEDS: Normal Saline Flush 10 ML SYR IVP (07:52)
[2025-05-19 08:15] VITALS: BP 97/66; PULSE 69; RESP 18; TEMP 36.4; O2SAT 99
[2025-05-19 08:30] VITALS: BP 96/62; PULSE 64; RESP 18; TEMP 36.2; O2SAT 95
[2025-05-19] MEDS: IMMUNE GLOBULIN 20 GM/200 ML BTL IVPB (08:40)
[2025-05-19 09:06] VITALS: BP 96/65; PULSE 63; RESP 19; TEMP 36.4; O2SAT 97
[2025-05-20 07:49] VITALS: BP 124/74; PULSE 85; RESP 18; TEMP 36.2; O2SAT 95
[2025-05-20] MEDS: Normal Saline Flush 10 ML SYR IVP (07:51)
[2025-05-20] MEDS: IMMUNE GLOBULIN 10 GM/100 ML BTL IVPB (07:51)
[2025-05-20 08:15] VITALS: BP 112/75; PULSE 78; RESP 20; TEMP 36.4; O2SAT 95
[2025-05-20 08:30] VITALS: BP 101/69; PULSE 77; RESP 18; TEMP 36.3; O2SAT 95
[2025-05-20] MEDS: IMMUNE GLOBULIN 20 GM/200 ML BTL IVPB (08:36)
[2025-05-20 08:54] LABS: Estimated GFR 60.23 (mL/min/1.73m2)
[2025-05-20 09:01] VITALS: BP 119/75; PULSE 70; RESP 18; TEMP 36.3; O2SAT 100
[2025-05-21] MEDS: IMMUNE GLOBULIN 10 GM/100 ML BTL IVPB (07:53)
[2025-05-21] MEDS: Normal Saline Flush 10 ML SYR IVP (07:53)
[2025-05-21 08:20] VITALS: BP 132/58; PULSE 67; RESP 18; TEMP 36.4; O2SAT 95
[2025-05-21 08:45] VITALS: BP 103/65; PULSE 67; RESP 19; TEMP 36.4; O2SAT 97
[2025-05-21] MEDS: IMMUNE GLOBULIN 20 GM/200 ML BTL IVPB (08:46)
[2025-05-21 09:25] VITALS: BP 127/76; PULSE 67; RESP 18; TEMP 36.4; O2SAT 97
[2025-05-21 10:37] VITALS: BP 108/71; PULSE 76; RESP 18; TEMP 36.3; O2SAT 96
[2025-05-22] MEDS: Normal Saline Flush 10 ML SYR IVP (07:51)
[2025-05-22] MEDS: IMMUNE GLOBULIN 10 GM/100 ML BTL IVPB (07:51)
[2025-05-22 08:15] VITALS: BP 111/73; PULSE 71; RESP 19; TEMP 36.3; O2SAT 94
[2025-05-22 08:30] VITALS: BP 100/64; PULSE 72; RESP 18; TEMP 35.9; O2SAT 94
[2025-05-22] MEDS: IMMUNE GLOBULIN 20 GM/200 ML BTL IVPB (08:40)
[2025-05-22 10:56] VITALS: BP 123/76; PULSE 71; RESP 18; TEMP 36.4; O2SAT 98
[2025-05-25 07:51] VITALS: BP 93/62; PULSE 70; RESP 18; TEMP 36.1; O2SAT 94
[2025-05-25] MEDS: Normal Saline Flush 10 ML SYR IVP (07:52)
[2025-05-25] MEDS: IMMUNE GLOBULIN 10 GM/100 ML BTL IVPB (07:52)
[2025-05-25 08:15] VITALS: BP 106/70; PULSE 63; RESP 18; TEMP 36.2; O2SAT 98
[2025-05-25 08:31] VITALS: BP 121/71; PULSE 61; RESP 18; TEMP 36.3; O2SAT 96
[2025-05-25] MEDS: IMMUNE GLOBULIN 20 GM/200 ML BTL IVPB (08:45)
[2025-05-25 08:53] LABS: Estimated GFR 34.27 (mL/min/1.73m2)
[2025-05-25 09:03] VITALS: BP 122/79; PULSE 64; RESP 18; TEMP 36; O2SAT 96
[2025-05-25 09:33] VITALS: BP 112/76; PULSE 60; RESP 19; TEMP 35.8; O2SAT 95
== END 2025-06-16 23:59 | disposition home or self-care (01) ==
LOC: INF 03:37
PROVIDERS: PCP Family Medicine; Visit Provider Psychiatry & Neurology Neurology
DX: G61.81 Chronic inflammatory demyelinating polyneuritis (principal); D86.9 Sarcoidosis, unspecified
CPT/HCPCS: 36415; 96365; 96366; 82565; J1459

== ENCOUNTER 2025-07-13 03:34 | Outpatient (CLI) | payer MEDICARE, SELFPAY ==
--- NOTE | 2025-07-13 07:50 | DI.MAMMO_ITS ---
Exam(s) MAMMO SCREENING EXAM: MAMMO SCREENING CLINICAL HISTORY: SCREENING, Z12.31 TECHNIQUE: Bilateral full field digital CC and MLO mammographic images were obtained with 3D tomosynthesis and utilizing computer aided detection (CAD). COMPARISON: Comparison is made with prior examinations. FINDINGS: Masses/Architectural Distortion: No suspicious masses or areas of architectural distortion are present. Microcalcifications: No suspicious pleomorphic-type are seen. Skin Thickening/Nipple Retraction: None. IMPRESSION: 1. No significant interval change with no specific features of malignancy noted. 2. Unless there is more urgent need, screening mammography is recommended, as per [employer] guidelines. BI-RADS Category 1 - Negative Breast Density - Category B - There are scattered areas of fibroglandular density. Breast density Category C or D implies that the patient has dense breast tissue. Dense breast tissue can make it harder to find cancer on a mammogram. Dense breast tissue is also associated with an increased risk of breast cancer. This information about the result of the mammogram report was provided to the patient to raise their awareness. Use this report when you speak with the patient about their risks for breast cancer, which includes their family history. At that time, you may recommend additional screening tests (Ultrasound or MRI) as these tests may add significant information. A negative radiographic report should not delay biopsy if a dominant or clinically suspicious mass is present. Up to ten percent of cancers are not identified on mammography. A negative report may reinforce clinical impression. Adenosis and dense breasts may obscure an underlying neoplasm. False positive reports average 6 to 10%. Patient will receive a letter notifying them of these results.
== END 2025-07-13 03:54 ==
LOC: DI 03:34
PROVIDERS: PCP Family Medicine; Visit Provider Family Medicine
DX: Z12.31 Encounter for screening mammogram for malignant neoplasm of breast (principal)
CPT/HCPCS: 77063; 77067

== ENCOUNTER → 2025-08-05 09:07 | Outpatient (BNVA) | payer MEDICARE, SELFPAY | PROVIDERS: PCP Family Medicine; Visit Provider Psychiatry & Neurology Neurology | DX: G62.9 Polyneuropathy, unspecified (principal); G56.03 Carpal tunnel syndrome, bilateral upper limbs; G56.21 Lesion of ulnar nerve, right upper limb; D86.9 Sarcoidosis, unspecified; G61.9 Inflammatory polyneuropathy, unspecified; M89.8X8 Other specified disorders of bone, other site; E11.59 Type 2 diabetes mellitus with other circulatory complications; I10 Essential (primary) hypertension | CPT/HCPCS: 99215 ==

== ENCOUNTER 2025-08-25 00:51 | Outpatient (RCR) | payer MEDICARE, SELFPAY ==
[2025-08-19] MEDS: Normal Saline Flush 10 ML SYR IVP (08:16)
[2025-08-19] MEDS: Immune Globulin-Privigen 40 GM/400 ML BTL IVPB (08:16)
[2025-08-19 08:20] VITALS: BP 102/69; PULSE 75; RESP 18; TEMP 36.6; O2SAT 97
[2025-08-19 08:35] VITALS: BP 123/73; PULSE 72; RESP 18; TEMP 36.5; O2SAT 96
[2025-08-19 08:50] VITALS: BP 119/78; PULSE 71; RESP 20; TEMP 36.5; O2SAT 97
[2025-08-19 09:20] VITALS: BP 111/72; PULSE 70; RESP 18; TEMP 36.5; O2SAT 95
[2025-08-19 09:50] VITALS: BP 121/73; PULSE 72; RESP 18; TEMP 36.4; O2SAT 97
[2025-08-20] MEDS: Immune Globulin-Privigen 10 GM/100 ML BTL IV (08:00)
[2025-08-20] MEDS: Normal Saline Flush 10 ML SYR IVP (08:00)
[2025-08-20 08:25] VITALS: BP 106/70; PULSE 72; RESP 18; TEMP 36.4; O2SAT 95
[2025-08-20 08:40] VITALS: BP 114/72; PULSE 74; RESP 18; TEMP 36.4; O2SAT 95
[2025-08-20] MEDS: [UNRECOGNIZED DRUG - OTHER] IV (08:50)
[2025-08-20 08:52] VITALS: BP 128/79; PULSE 72; RESP 18; TEMP 36.4; O2SAT 94
[2025-08-20 09:15] VITALS: BP 122/77; PULSE 68; RESP 18; TEMP 35; O2SAT 97
[2025-08-21] MEDS: Immune Globulin-Privigen 5 GM/50 ML BTL IV (07:46)
[2025-08-21] MEDS: Normal Saline Flush 10 ML SYR IVP (07:46)
[2025-08-21 08:05] VITALS: BP 115/76; PULSE 66; RESP 18; TEMP 36.4; O2SAT 95
[2025-08-21 08:09] VITALS: BP 123/78; PULSE 66; RESP 18; TEMP 36.4; O2SAT 95
[2025-08-21] MEDS: Immune Globulin-Privigen 10 GM/100 ML BTL IV (08:10)
[2025-08-21 08:20] VITALS: BP 116/77; PULSE 68; RESP 18; TEMP 36.4; O2SAT 95
[2025-08-21 08:50] VITALS: BP 135/80; PULSE 66; RESP 18; TEMP 36.4; O2SAT 96
[2025-08-21] MEDS: [UNRECOGNIZED DRUG - OTHER] IV (08:56)
[2025-08-21 09:20] VITALS: BP 125/82; PULSE 64; RESP 18; TEMP 36.4; O2SAT 97
[2025-08-24] MEDS: Normal Saline Flush 10 ML SYR IVP (08:23)
[2025-08-24] MEDS: Immune Globulin-Privigen 5 GM/50 ML BTL IV (08:23)
[2025-08-24 08:25] VITALS: BP 99/67; PULSE 68; RESP 18; TEMP 36.3; O2SAT 96
[2025-08-24 08:40] VITALS: BP 120/80; PULSE 61; RESP 18; TEMP 36.1; O2SAT 97
[2025-08-24 08:55] VITALS: BP 103/65; PULSE 70; RESP 18; TEMP 36.3; O2SAT 97
[2025-08-24] MEDS: Immune Globulin-Privigen 10 GM/100 ML BTL IV (08:57)
[2025-08-24 09:25] VITALS: BP 101/64; PULSE 63; RESP 18; TEMP 36.4; O2SAT 96
[2025-08-24] MEDS: [UNRECOGNIZED DRUG - OTHER] IV (09:31)
[2025-08-24 09:55] VITALS: BP 127/70; PULSE 68; RESP 18; TEMP 36.5; O2SAT 99
[2025-08-24 10:15] VITALS: BP 114/75; PULSE 68; RESP 18; TEMP 36.7; O2SAT 97
[2025-08-25] MEDS: Immune Globulin-Privigen 5 GM/50 ML BTL IV (07:50)
[2025-08-25] MEDS: Normal Saline Flush 10 ML SYR IVP (07:50)
[2025-08-25 07:57] VITALS: BP 103/68; PULSE 63; RESP 18; TEMP 36.5; O2SAT 95
[2025-08-25 08:15] VITALS: BP 104/65; PULSE 64; RESP 17; TEMP 36.6; O2SAT 95
[2025-08-25] MEDS: Immune Globulin-Privigen 10 GM/100 ML BTL IV (08:18)
[2025-08-25 08:32] VITALS: BP 98/60; PULSE 65; RESP 18; TEMP 36.5; O2SAT 96
[2025-08-25] MEDS: [UNRECOGNIZED DRUG - OTHER] IV (08:56)
[2025-08-25 09:05] VITALS: BP 109/68; PULSE 72; RESP 18; TEMP 36.6; O2SAT 99
[2025-08-25 09:35] VITALS: BP 104/66; PULSE 63; RESP 18; TEMP 36.5; O2SAT 94
== END 2025-09-16 23:59 | disposition home or self-care (01) ==
LOC: INF 00:51
PROVIDERS: PCP Family Medicine; Visit Provider Psychiatry & Neurology Neurology
DX: G61.81 Chronic inflammatory demyelinating polyneuritis (principal)
CPT/HCPCS: 36415; 96365; 96366; 82565; J1459

== ENCOUNTER 2025-08-26 10:44 | Outpatient (REF) | payer MEDICARE, SELFPAY ==
[2025-08-26 17:35] LABS: Hemoglobin A1C 5.8 % (<5.7)
[2025-08-26 18:02] LABS: Anion Gap 11.1 mmol/L (3-11); BUN 30 mg/dL (9-23); CO2 23.9 mmol/L (20.0-31.0); Calcium 8.4 mg/dL (8.3-10.6); Chloride 108 mmol/L (98-107); Cholesterol 131 mg/dL (<200); Glucose 104 mg/dL (74-106); HDL Cholesterol 35 mg/dL (>40); Potassium 4.0 mmol/L (3.5-5.1); Sodium 143 mmol/L (136-145)
== END 2025-08-26 10:45 | disposition home or self-care (01) ==
LOC: NCHCN 10:44
PROVIDERS: PCP Family Medicine; Visit Provider Family Medicine
DX: E11.9 Type 2 diabetes mellitus without complications (principal); E78.2 Mixed hyperlipidemia
CPT/HCPCS: 80048; 80061; 83036